=== PATIENT | female | born 1950 | race Caucasian/White ===

== ENCOUNTER 2023-06-30 09:31 | Outpatient (OUT) | payer MEDICARE, SELFPAY ==
[2023-06-30 09:49] LABS: Basophils Absolute Auto 0.1 10^3/uL (0.0-0.1); Basophils Percent Auto 1.1 % (0.2-2.0); Eosinophils Absolute Auto 0.3 10^3/uL (0.0-0.7); Eosinophils Percent Auto 4.1 % (0.9-7.0); Hematocrit 30.3 % (36.0-48.0); Hemoglobin 8.9 g/dL (12.0-16.0); Immature Granulocytes Abs Auto 0.02 10^3/uL (0.00-0.03); Immature Granulocytes Pct Auto 0.3 % (0.0-0.5); Lymphocytes Absolute Auto 0.9 10^3/uL (1.2-3.8); Lymphocytes Percent Auto 14.5 % (20.5-60.0); Mean Corpuscular HGB Conc 29.4 g/dL (29.9-35.2); Mean Corpuscular Hemoglobin 24.7 pg (26.7-34.0); Mean Corpuscular Volume 84.2 fL (81.0-99.0); Mean Platelet Volume 9.1 fL (9.5-13.5); Monocytes Absolute Auto 0.5 10^3/uL (0.3-0.8); Monocytes Percent Auto 7.8 % (1.7-12.0); Neutrophils Absolute Auto 4.5 10^3/uL (1.4-6.5); Neutrophils Percent Auto 72.2 % (43.0-75.0); Platelet Count 356 10^3/uL (150-450); Red Cell Distribution Width 16.8 % (11.0-15.0); White Blood Count 6.3 10^3/uL (4.0-11.0)
[2023-06-30 10:09] LABS: Alanine Aminotransferase 21 U/L (14-59); Albumin Globulin Ratio 0.8; Albumin Level 3.2 g/dL (3.4-5.0); Alkaline Phosphatase 154 U/L (46-116); Anion Gap 12.1; Aspartate Amino Transferase 22 U/L (15-37); BUN Creatinine Ratio 14.6; Bilirubin Total 0.5 mg/dL (0.2-1.0); Calcium 8.3 mg/dL (8.5-10.1); Carbon Dioxide 29.1 mmol/L (21.0-32.0); Chloride 101 mmol/L (98-107); Chol HDL Ratio 3.8; Cholesterol 129 mg/dL (<=200); Estimated GFR (African America 43 (>=60); Estimated GFR (Non-African Ame 36 (>=60); Glucose 112 mg/dL (74-106); HDL Cholesterol 34 mg/dL (40-60); Magnesium 1.9 mg/dL (1.8-2.4); Potassium 4.2 mmol/L (3.5-5.1); Sodium 138 mmol/L (136-145); Total Protein 7.2 g/dL (6.4-8.2); Triglycerides 93 mg/dL (<=150); VLDL CHOLESTEROL 18.6 mg/dL
== END 2023-06-30 09:32 | disposition home or self-care (01) ==
LOC: LAB 09:35
PROVIDERS: PCP Family Medicine; Visit Provider Family Medicine
DX: E78.5 Hyperlipidemia, unspecified (principal); I25.10 Atherosclerotic heart disease of native coronary artery without angina pectoris; N18.30 Chronic kidney disease, stage 3 unspecified; I12.9 Hypertensive chronic kidney disease with stage 1 through stage 4 chronic kidney disease, or unspecified chronic kidney disease; D64.9 Anemia, unspecified; E83.42 Hypomagnesemia
CPT/HCPCS: 36415; 80053; 80061; 83540; 83735; 85025

== ENCOUNTER 2023-08-15 12:33 | Inpatient (IN) | payer MEDICARE, SELFPAY ==
[2023-08-15] VITALS (46 sets, daily range): BP systolic 109–149; BP diastolic 36–81; PULSE 61–94; RESP 12–22; TEMP 36.5–37; O2SAT 78–98; BMI 39.1; BMI 38.5
--- NOTE | 2023-08-15 12:47 | ECG_ITS ---
The [facility] Test Date: 2023-08-15 Pat Name: BELLE JEONG Department: Room: - Gender: Female Count Team Member: : 1950 Requested By: Order Number: [id number] Reading MD: KEERTHI WALTER Measurements Intervals [place] Rate: 67 P: 103 SC: 192 QRS: 43 QRSD: 92 T: 54 QT: 400 QTc: 415 Interpretive Statements 1100 Sinus rhythm Baseline artifact present 9110 normal ECG No previous ECG available for comparison Electronically Signed On 08-16-2023 18:57:37 EDT by KEERTHI WALTER
--- NOTE | 2023-08-15 12:47 | XR_ITS ---
The [address] [address] Patient Name: BELLE JEONG MRN: [id number] date: 1950 Sex: F Assigned Patient Location: ER Current Patient Location: ER Accession/Order Number: [id number] Exam Date: 08/15/2023 13:15 Report Date: 08/15/2023 14:33 At the request of: EDVIN LAM Procedure: XR chest 1V CLINICAL HISTORY: SOB. Increasing shortness of breath for the past 2 days. EXAMINATION: AP chest 08/15/2023 at 1317 hours. COMPARISON: AP chest from left rib series 12/27/2022. FINDINGS: The visualized osseous structures appear intact. The heart size seems upper limits of the normal. The aorta is tortuous and atherosclerotic. Slightly low lung volumes are seen since the previous examination with mildly prominent interstitial markings. Part of this could be due to low lung volumes and crowding of the vessels. However mild interstitial edema is a consideration. No discrete focal consolidating infiltrates, pleural effusions, or pneumothorax. XR/XR chest 1V IMPRESSION: 1. Borderline enlarged heart. 2. Mildly prominent interstitial markings, which could be due to crowding of the vessels due to low lung volumes however underlying mild interstitial edema is a consideration. Electronically authenticated by: LIONEL ARNETT Date: 08/15/2023 14:33
--- NOTE | 2023-08-15 12:48 | ED.SOB1 ---
HPI - SOB/Dyspnea General Chief Complaint: Shortness of Breath/Dyspnea Stated Complaint: SHORTNESS OF BREATH Time Seen by Provider: 08/15/23 12:43 Source: patient Mode of arrival: Wheelchair History of Present Illness HPI Narrative: 73-year-old female presents for shortness of breath. She's been this way for the last week. She had a slight cough yesterday morning but it went away. She's had no productive cough and doesn't complain of chest pain. She used somebody else's inhaler and it seemed to help her several days ago. No fever or hemoptysis. She feels much better now that she is placed on oxygen. She doesn't complain to me of ankle swelling or chest pain. Related Data Home Medications Medication Instructions Recorded Confirmed amlodipine 10 mg tablet 10 mg PO DAILY 08/15/23 08/15/23 buprenorphine 8 mg-naloxone 2 mg 1.5 film sublingual Q24H 08/15/23 08/15/23 sublingual film clopidogrel 75 mg tablet 75 mg PO DAILY 08/15/23 08/15/23 metoprolol tartrate 25 mg tablet 25 mg PO Q12H 08/15/23 08/15/23 naloxone 4 mg/actuation nasal 1 spray intranasal Q3M PRN opioid 08/15/23 08/15/23 spray (Narcan) overdose valsartan 80 mg tablet 80 mg PO DAILY 08/15/23 08/15/23 Allergies Allergy/AdvReac Type Severity Reaction Status Date / Time No Known Drug Allergies Allergy Verified 08/15/23 12:42 Review of Systems ROS Narrative A ten point review of systems is negative except as noted above. Exam Narrative Exam Narrative: Nurses note and vital signs reviewed and patient is not hypoxic. General: The patient appears well and in no apparent distress. Patient is resting comfortably on cart. Skin: Warm, dry, no pallor noted. There is no rash noted. Head: Normocephalic, atraumatic Eye: Normal conjunctiva, no drainage Ears, Nose, Mouth, and Throat: oral mucosa is moist. Nares patent. Cardiovascular: Regular Rate and Rhythm Respiratory: Patient has bilateral rhonchi Back: non-tender GI: Normal bowel sounds, no tenderness to palpation, no masses appreciated. No rebound, guarding, or rigidity noted. Musculoskeletal: The patient has no evidence of calf tenderness, no pitting edema, symmetrical pulses noted bilaterally Neurological: A&O, normal speech Psychiatric: Cooperative Constitutional Vital Signs, click to edit/add: Last Vital Signs Temp 98.6 F 08/15/23 12:38 Pulse 61 08/15/23 12:59 Resp 18 08/15/23 12:38 BP 143/56 H 08/15/23 12:38 Pulse Ox 94 L 08/15/23 13:10 O2 Del Method Nasal Cannula 08/15/23 13:10 O2 Flow Rate 2 08/15/23 13:10 Course Vital Signs Vital signs: Vital Signs Temperature 98.6 F 08/15/23 12:38 Pulse Rate 69 08/15/23 12:38 Respiratory Rate 18 08/15/23 12:38 Blood Pressure 143/56 H 08/15/23 12:38 Pulse Oximetry 81 L 08/15/23 12:38 Oxygen Delivery Method Room Air 08/15/23 12:38 Temperature 98.6 F 08/15/23 12:38 Pulse Rate 61 08/15/23 12:59 Respiratory Rate 18 08/15/23 12:38 Blood Pressure 143/56 H 08/15/23 12:38 Pulse Oximetry 94 L 08/15/23 13:10 Oxygen Delivery Method Nasal Cannula 08/15/23 13:10 Oxygen Delivery Flow Rate 2 08/15/23 13:10 MDM - SOB/Dyspnea MDM Narrative Medical decision making narrative: She is found to be anemic with hemoglobin of 6.6. Stool. Heme-negative. She had been on iron pills until about a year ago but has never had a blood transfusion. There is also possible borderline interstitial edema on her chest x-ray. Blood is ordered and she's being admitted. Findings are discussed with the patient. There is also been a slight increase in her BUN and creatinine. Treatment diagnosis and disposition were discussed with the patient. Differential Diagnosis Differential diagnosis: Likely congestive heart failure and other (pneumonia, anemia, acute kidney injury) Lab Data Attestation: I reviewed the patient's lab results. Labs: Lab Results 08/15/23 08/15/23 Range/Units 13:15 14:00 WBC 2.9 L (4.0-11.0) 10^3/uL RBC 2.78 L (4.20-5.40) 10^6/uL Hgb 6.6 L* (12.0-16.0) g/dL Hct 24.4 L (36.0-48.0) % MCV 87.8 (81.0-99.0) fL MCH 23.7 L (26.7-34.0) pg MCHC 27.0 L (29.9-35.2) g/dL RDW 17.1 H (11.0-15.0) % Plt Count 253 (150-450) 10^3/uL MPV 9.1 L (9.5-13.5) fL Neut % (Auto) 60.2 (43.0-75.0) % Lymph % (Auto) 14.7 L (20.5-60.0) % [place] % (Auto) 19.9 H (1.7-12.0) % Eos % (Auto) 3.1 (0.9-7.0) % Baso % (Auto) 1.4 (0.2-2.0) % Neut # (Auto) 1.8 (1.4-6.5) 10^3/uL Lymph # (Auto) 0.4 L (1.2-3.8) 10^3/uL [place] # (Auto) 0.6 (0.3-0.8) 10^3/uL Eos # (Auto) 0.1 (0.0-0.7) 10^3/uL Baso # (Auto) 0.0 (0.0-0.1) 10^3/uL Abs Immat Gran (auto) 0.02 (0.00-0.03) 10^3/uL Imm/Tot Granulo (auto) 0.7 H (0.0-0.5) % Sodium 140 (136-145) mmol/L Potassium 5.5 H (3.5-5.1) mmol/L Chloride 106 (98-107) mmol/L Carbon Dioxide 28.5 (21.0-32.0) mmol/L Anion Gap 11.0 BUN 45.0 H (7.0-18.0) mg/dL Creatinine 2.00 H (0.55-1.02) mg/dL Est GFR ( Amer) 30 L (>=60) Est GFR (Non-Af Amer) 24 L (>=60) BUN/Creatinine Ratio 22.5 Glucose 104 (74-106) mg/dL Calcium 8.0 L (8.5-10.1) mg/dL Troponin I High Sens 12.0 (4.0-51.3) pg/mL NT-Pro-B Natriuret Pep 5369.0 H* (<=900.0) pg/mL Stool Occult Blood Negative Imaging Data Chest x-ray: Radiologist's impression: Procedure: XR chest 1V CLINICAL HISTORY: SOB. Increasing shortness of breath for the past 2 days. EXAMINATION: AP chest 08/15/2023 at 1317 hours. COMPARISON: AP chest from left rib series 12/27/2022. FINDINGS: The visualized osseous structures appear intact. The heart size seems upper limits of the normal. The aorta is tortuous and atherosclerotic. Slightly low lung volumes are seen since the previous examination with mildly prominent interstitial markings. Part of this could be due to low lung volumes and crowding of the vessels. However mild interstitial edema is a consideration. No discrete focal consolidating infiltrates, pleural effusions, or pneumothorax. IMPRESSION: 1. Borderline enlarged heart. 2. Mildly prominent interstitial markings, which could be due to crowding of the vessels due to low lung volumes however underlying mild interstitial edema is a consideration. Electronically authenticated by: LIONEL ARNETT Date: 08/15/2023 14:33 ECG Data Attestation: I personally reviewed and interpreted this ECG as follows: (EKG on my interpretation shows sinus rhythm without acute change and a rate of 67.) Discharge Plan Discharge Chief Complaint: Shortness of Breath/Dyspnea Clinical Impression: Anemia Patient Disposition: Admitted As Inpatient Time of Disposition Decision: 15:14 Condition: Good
[2023-08-15] MEDS: ALBUTEROL SULFATE 2.5 MG/3 ML VIAL NEB IH (12:59)
[2023-08-15 13:29] LABS: Basophils Percent Auto 1.4 % (0.2-2.0); Eosinophils Absolute Auto 0.1 10^3/uL (0.0-0.7); Eosinophils Percent Auto 3.1 % (0.9-7.0); Hematocrit 24.4 % (36.0-48.0); Immature Granulocytes Abs Auto 0.02 10^3/uL (0.00-0.03); Immature Granulocytes Pct Auto 0.7 % (0.0-0.5); Lymphocytes Absolute Auto 0.4 10^3/uL (1.2-3.8); Lymphocytes Percent Auto 14.7 % (20.5-60.0); Mean Corpuscular Hemoglobin 23.7 pg (26.7-34.0); Mean Corpuscular Volume 87.8 fL (81.0-99.0); Mean Platelet Volume 9.1 fL (9.5-13.5); Monocytes Absolute Auto 0.6 10^3/uL (0.3-0.8); Monocytes Percent Auto 19.9 % (1.7-12.0); Neutrophils Absolute Auto 1.8 10^3/uL (1.4-6.5); Neutrophils Percent Auto 60.2 % (43.0-75.0); Platelet Count 253 10^3/uL (150-450); Red Blood Count 2.78 10^6/uL (4.20-5.40); Red Cell Distribution Width 17.1 % (11.0-15.0); White Blood Count 2.9 10^3/uL (4.0-11.0)
[2023-08-15 13:47] LABS: BUN Creatinine Ratio 22.5; Carbon Dioxide 28.5 mmol/L (21.0-32.0); Chloride 106 mmol/L (98-107); Estimated GFR (African America 30 (>=60); Estimated GFR (Non-African Ame 24 (>=60); Glucose 104 mg/dL (74-106); Potassium 5.5 mmol/L (3.5-5.1); Sodium 140 mmol/L (136-145)
[2023-08-15 13:49] LABS: Hemoglobin 6.6 g/dL (12.0-16.0)
[2023-08-15 14:30] LABS: Occult Blood Negative
--- NOTE | 2023-08-15 15:35 | CA_ITS ---
Patient: BELLE JEONG Exam Date: 08/17/2023 : 1950 Gender:F Ordering : RUBI BERNARD . Admission #: [id number] Family : Order #: [id number] CLICK HERE TO VIEW EXAM ECHOCARDIOGRAM REPORT PROCEDURE: CA ECHO DOPPLER COMPLETE INDICATIONS: shortness of breath, elevated ProBNP COMPARISON: None. DESCRIPTION: COMPLETE ECHOCARDIOGRAM Real-time transthoracic echocardiography with 2D, M-mode, spectral and color flow Doppler performed. QUALITY: Technical quality was good. LEFT VENTRICLE: Normal chamber size. Mild concentric left ventricular hypertrophy. LV EF: Global left ventricular systolic function is normal. Calculated left ventricular ejection fraction is 65%. No significant wall motion abnormalities. DIASTOLIC: Grade II diastolic dysfunction. ATRIAL SEPTUM: Inadequately seen. LEFT ATRIUM: Severe dilatation. RIGHT ATRIUM: Mild dilatation. RIGHT VENTRICLE: Normal chamber size. Normal right ventricular systolic function. TRICUSPID VALVE: Normal mobility and thickness. Mild regurgitation. Moderate pulmonary hypertension. RVSP 54mmHg MITRAL VALVE: Normal mobility and thickness. No evidence of mitral valve stenosis. Mild mitral annular calcification. Mild mitral regurgitation. AORTIC VALVE: Normal trileaflet appearance. Moderately calcified aortic valve. Moderately diminished mobility. Doppler velocity suggests mild to moderate aortic valve stenosis. DVI 0.4, FAIZAN 1.3cm, Vmax 8.1m/s2, Mean gradient 15mmHg.No aortic regurgitation. AORTIC ROOT: Normal diameter and appearance. PULMONIC VALVE: Normal thickness and mobility. No stenosis. No regurgitation. PERICARDIUM: No evidence of pericardial effusion. IVC: Normal in size with no collapse. CONCLUSION: 1. Global left ventricular systolic function is normal; visually estimated ejection fraction is 60 to 65% 2. Mild left ventricular hypertrophy 3. Grade 2, moderate diastolic dysfunction 4. Biatrial enlargement 5. The right ventricle is normal in size and systolic function 6. Mild tricuspid regurgitation; moderately elevated right ventricular systolic pressure 7. Mild mitral regurgitation 8. Mild to moderate aortic valve stenosis Adult Echocardiography Procedure Report Left Ventricle LVEDD (3.7 - 5.6 cm): 5.21 cm LVESD (2.2 - 4.0 cm): 3.28 cm LVIVS thickness (0.6 - 1.2 cm): 1.19 cm LVPW thickness (0.5 - 1.0 cm): 1.03 cm e': 0.08 m/s E - e': 16.65 LVOT Max Gradient: 4.54 mm[Hg], 5.10 mm[Hg] LVOT Area (cm2): 1.13 m/s, 1.07 m/s Peak Velocity (LVOT): 1.13 m/s, 1.07 m/s Mean Velocity (LVOT): 0.69 m/s LVOT Diameter 2.12 cm Left Ventricular Ejection Fraction: 65.38 % Left Atrium LA Volume Index (2D A2C): 68.64 ml/m2 Left Atrium Systolic Dimension: 4.87 cm Mitral Valve MV E to A Ratio: 1.13, 1.20 Mitral Valve A-Wave Peak Velocity: 1.17 m/s Mitral Valve E-Wave Peak Velocity: 1.37 m/s Right Ventricle RV Internal Diastolic Dimension: 3.25 cm Aorta AO Root Diam: 3.27 cm Ascending Ao Diam: 2.72 cm Aortic Valve AoV Area (Peak Harsh): 1.42 cm2, 1.42 cm2, 1.34 cm2, 1.34 cm2 AoV Area (VTI): 1.48 cm2, 1.48 cm2 Peak Velocity(Antegrade Flow): 2.81 m/s Peak Gradient(Antegrade Flow): 31.63 mm[Hg] Mean Velocity(Antegrade Flow): 1.81 m/s Mean Gradient(Antegrade Flow): 15.21 mm[Hg] Velocity Time Integral: 65.45 cm Tricuspid Valve Peak Velocity (Regurgitant Flow): 3.10 m/s, 3.15 m/s, 3.47 m/s Pulmonic Valve Mean Gradient: 4.80 mm[Hg] Mean Velocity: 1.03 m/s Peak Velocity: 1.49 m/s Peak Gradient: 8.88 mm[Hg] Right Atrium Right Atrium Systolic Pressure: 62.45 ml, 62.45 ml Dictated by: Jaylon Del Real M.D. on 08/17/2023 at 15:57 Approved by: Jaylon Del Real M.D. on 08/17/2023 at 16:01
[2023-08-15 16:21] LABS: INR 0.97; Prothrombin Time 10.3 sec (9.0-11.6)
[2023-08-15 16:26] LABS: Percent Iron Saturation 4.2 %
[2023-08-15] MEDS: FUROSEMIDE 40 MG/4 ML VIAL IVP (18:30)
--- NOTE | 2023-08-15 20:43 | RESP.RT ---
Titrated to 3 lpm
[2023-08-15] MEDS: PANTOPRAZOLE SODIUM 40 MG VIAL IV (21:13)
[2023-08-15] MEDS: METOPROLOL TARTRATE 25 MG TABLET PO (21:13)
[2023-08-15 23:32] LABS: Hemoglobin 9.4 g/dL (12.0-16.0)
[2023-08-15] MEDS: IPRATROPIUM/ALBUTEROL SULFATE 3 ML AMPUL.NEB IH (23:56)
[2023-08-16] VITALS (17 sets, daily range): BP systolic 111–153; BP diastolic 55–78; PULSE 68–778; RESP 18–22; TEMP 36.4–37.5; O2SAT 91–95
--- NOTE | 2023-08-16 00:04 | RESP.RT ---
Titrated to 3 lpm
--- NOTE | 2023-08-16 00:22 | PC.NURSE ---
pt had H&H pulled one hour post transfusion with a Hgb of 9.4 Hcrt of 33.0
[2023-08-16 06:32] LABS: Hematocrit 31.5 % (36.0-48.0); Hemoglobin 8.7 g/dL (12.0-16.0); Immature Granulocytes Abs Auto 0.02 10^3/uL (0.00-0.03); Immature Granulocytes Pct Auto 0.5 % (0.0-0.5); Lymphocytes Absolute Auto 0.5 10^3/uL (1.2-3.8); Lymphocytes Percent Auto 13.1 % (20.5-60.0); Mean Corpuscular HGB Conc 27.6 g/dL (29.9-35.2); Mean Corpuscular Hemoglobin 24.9 pg (26.7-34.0); Mean Corpuscular Volume 90.3 fL (81.0-99.0); Mean Platelet Volume 9.2 fL (9.5-13.5); Monocytes Absolute Auto 0.8 10^3/uL (0.3-0.8); Monocytes Percent Auto 20.1 % (1.7-12.0); Neutrophils Absolute Auto 2.5 10^3/uL (1.4-6.5); Neutrophils Percent Auto 64.3 % (43.0-75.0); Platelet Count 262 10^3/uL (150-450); Red Blood Count 3.49 10^6/uL (4.20-5.40); Red Cell Distribution Width 17.6 % (11.0-15.0); White Blood Count 3.9 10^3/uL (4.0-11.0)
[2023-08-16 07:00] LABS: Potassium 6.3 mmol/L (3.5-5.1); Sodium 140 mmol/L (136-145)
[2023-08-16 07:01] LABS: Alanine Aminotransferase 19 U/L (14-59); Albumin Globulin Ratio 0.8; Albumin Level 3.2 g/dL (3.4-5.0); Alkaline Phosphatase 142 U/L (46-116); Anion Gap 13.9; Aspartate Amino Transferase 16 U/L (15-37); BUN Creatinine Ratio 22.7; Bilirubin Total 0.8 mg/dL (0.2-1.0); Carbon Dioxide 27.4 mmol/L (21.0-32.0); Chloride 105 mmol/L (98-107); Estimated GFR (African America 31 (>=60); Estimated GFR (Non-African Ame 25 (>=60); Globulin 3.8 g/dL; Glucose 114 mg/dL (74-106)
--- NOTE | 2023-08-16 08:30 | PM.HP ---
H&P: HPI History of Present Illness Chief complaint: SHORTNESS OF BREATH, Anemia Narrative: patient is a 73-year-old female with past medical history of iron deficiency anemia, coronary artery disease, congestive heart failure, history of illicit drug use currently on Suboxone therapy.she reports that about a year ago she was on iron supplement daily. She has required a transfusion of blood before approximately twenty nineteen. No issues with prior transfusions. She denies any blood loss through her stool or any vomiting of blood. She states she also had an upper endoscopy more than ten years ago. She takes Plavix daily, no anti-inflammatories. She has never had a colonoscopy before even though the recommendation has been there for her to do it. Patient presented with shortness of breath, hypoxia, weakness over the last week. Patient was found to be less than eighty-eight percent on room air and her hemoglobin was initially 6.6. Also had an elevated proBNP 5369. 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 She follows with Dr. Martinez in [facility] regularly,last cardiac catheterization was approximately two years ago with no further interventions. She continues to take her cholesterol medication and along with Plavix daily. She also has a history of taking opioids that are not prescribed to her. Her was going through cancer treatment and was prescribed morphine at the end of life and she was taking his morphine. She started on Suboxone approximately two months ago and reports that this is been going well for her. On admission exam she notes that she feels much improved since the blood transfusion she also notes some lower extremity swelling and states that she does have a history of heart failure. He has been compliant with her medications. Review of Systems ROS Narrative ROS: a complete review of systems were reviewed with patient and are positive as below or listed in History of Chief Complaint. General: no fever, chills, night sweats Head: no headache, trauma, visual changes, nausea or vomiting Skin: no reported rashes, itching or sores Eyes: no blurriness of vision Ears: no reported hearing loss, vertigo, earache, or tinnitus Throat: no sore throat, hoarseness, swelling of neck, or tongue pain Heart: no chest pain Lungs: shortness of breath no cough GI: no diarrhea or vomiting/nausea, no blood Urinary: no urinary urgency, frequency or pain Neuro: no numbness or tingling HEM: no bleeding issues or bruising ENDO: no thyroid problems Psych: hx of drug addiction [facility] Medical History (Updated 08/16/23 @ 11:54 by Dana Koenig DO) Surgical History Social History Within the past year, how often did you have a drink containing alcohol: never Within the past year, how many standard drinks containing alcohol did you have on a typical day: 1 or 2 Within the past year, how often did you have six or more drinks on one occasion: never Total score: 0 Score interpretation: A score less than 3 is consistent with normal alcohol consumption. Smoking status: Former smoker Non-prescribed substance use: former substance user, amphetamines/methamphetamines and opiods/painkillers Non-prescribed substance use details: states has been clean for 6 months Previous occupational history: Retired Known occupational exposures/hazards: No Highest level of school completed/degree received: high school graduate Are you now , , , , never or living with a partner: In a typical week, how many times do you talk on the telephone with family, friends, or neighbors: 3 or more times per week How often do you get together with friends or relatives: 3 or more times per week How often do you attend orthodoxy or evangelical services: never Do you belong to any clubs or organizations such as orthodoxy groups unions, fraternal or athletic groups, or school groups: no Total score: 1 Score interpretation: A score of less than or equal to 1 indicates the most socially isolated. Little interest or pleasure in doing things: not at all Feeling down, depressed, or hopeless: not at all Feel stressed/tense/nervous/anxious/difficulty sleeping: not at all Gender Identity: female Meds Home Medications and Allergies Home Medications Medication Instructions Recorded Confirmed Type amlodipine 10 mg tablet 10 mg PO DAILY 08/15/23 08/15/23 History buprenorphine 8 mg-naloxone 2 mg 1.5 film sublingual Q24H 08/15/23 08/15/23 History sublingual film clopidogrel 75 mg tablet 75 mg PO DAILY 08/15/23 08/15/23 History metoprolol tartrate 25 mg tablet 25 mg PO Q12H 08/15/23 08/15/23 History naloxone 4 mg/actuation nasal 1 spray intranasal Q3M PRN opioid 08/15/23 08/15/23 History spray (Narcan) overdose valsartan 80 mg tablet 80 mg PO DAILY 08/15/23 08/15/23 History Allergies Allergy/AdvReac Type Severity Reaction Status Date / Time No Known Drug Allergies Allergy Verified 08/15/23 12:42 Exam Narrative Exam Narrative: General: Patient is alert, and oriented to person, place and time with normal affect, proper hygiene Skin: no visible rashes, or ulcers Head: atraumatic, acephalic Eyes: PERRLA, no nystagmus present, conjunctiva clear, no scleral icterus Ears: normal gross auditory acuity Nose: symmetric, no discharge, no maxillary or frontal sinus tenderness Neck: no masses palpated, normal thyroid, no JVD or audible carotid bruits Heart: Normal rate and rhythm, no murmurs/rubs/gallops Lungs: audible crackles Abdomen: Normal audible bowel sounds, no distension, No palpable masses, no organomegaly, no rebound/guarding/ or rigidity Musculoskeletal: muscle atrophy noted, ROM is limited due to being in hospital bed, +1 swelling bilateral lower extremities Vascular: Normal carotid, radial, femoral, posterior tibial, and dorsalis pedis pulses Lymph: no supraclavicular, axillary, or anterior/posterior cervical adenopathy Neuro: CN II-X grossly intact, normal sensation upper and lower extremities Constitutional Vital Signs, click to edit/add: Last Vital Signs Temp 99.5 F 08/16/23 06:00 Pulse 82 08/16/23 08:21 Resp 18 08/16/23 06:00 BP 143/78 H 08/16/23 06:00 Pulse Ox 95 08/16/23 06:00 O2 Del Method Nasal Cannula 08/16/23 06:00 O2 Flow Rate 4 08/16/23 06:00 Results Labs Labs: Short CBC 08/15/23 08/15/23 08/16/23 Range/Units 13:15 23:16 06:27 WBC 2.9 L 3.9 L (4.0-11.0) 10^3/uL Hgb 6.6 L* 9.4 L 8.7 L (12.0-16.0) g/dL Hct 24.4 L 33.0 L 31.5 L (36.0-48.0) % Plt Count 253 262 (150-450) 10^3/uL BMP 08/15/23 08/16/23 13:15 06:27 Sodium 140 140 Potassium 5.5 H 6.3 H* Chloride 106 105 Carbon Dioxide 28.5 27.4 BUN 45.0 H 44.0 H Creatinine 2.00 H 1.94 H Glucose 104 114 H Calcium 8.0 L 8.0 L Liver Function 08/16/23 Range/Units 06:27 Total Bilirubin 0.8 (0.2-1.0) mg/dL AST 16 (15-37) U/L ALT 19 (14-59) U/L Alkaline Phosphatase 142 H (46-116) U/L Albumin 3.2 L (3.4-5.0) g/dL Assessment and Plan Assessment and Plan (1) Symptomatic anemia: Assessment and Plan: initial hemoglobin was 6.6, patient was transfused with two units of packed red blood cells and hemoglobin improved to 9.4, this morning was 8.7. Iron level was low ferritin was high signifying iron deficiency anemia. Will also give iron transfusion of 300 mg IV once today. Patient has never had a colonoscopy, stool Hemoccult was negative and with her smoking history and age she should have R Dino had a screening colonoscopy so there is always a concern. I consulted general surgery for possible EGD and/or colonoscopy as an outpatient versus inpatient. I also place patient on IV Protonix 40 mg twice a day given patient has been on Plavix may also have an underlying gastritis versus ulcer. She has also been on clear liquid diet. 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 Will hold the Plavix given bleeding issues as above and symptomatic anemia, could also be because her hemoglobin was so well that this is also forcing her into an acute failure. She was treated with Lasix 40 mg IV once in between the two units of blood. Still appears in fluid overload today based on lung findings and bilateral extremity edema so we'll give another IV 40 mg dose of Lasix. We'll monitor closely renal function. Ins and outs, and daily weights Qualifiers: Heart failure type: unspecified Qualified Code(s): I50.9 - Heart failure, unspecified (3) Hyperkalemia: Assessment and Plan: will give a dose of Lasix today which should correct this elevated potassium of 6.6 we'll recheck this afternoon. Could also be due to losartan so we'll also hold this. (4) Acute renal failure: Assessment and Plan: sounds like she has a history of chronic kidney disease unsure of what her baseline creatinine is. Monitor daily (5) Hypertension: Assessment and Plan: continue amlodipine, metoprolol and will hold the valsartan given elevated potassium (6) CAD (coronary atherosclerotic disease): Assessment and Plan: will check lipids in the morning, holding Plavix for now (7) History of illicit drug use: Assessment and Plan: may continue Suboxone Plan patient is a full code Patient is inpatient status and is expected to stay more than two midnights SCDs and compression hose for deep vein thrombosis prophylaxis given patient's acute bleed
[2023-08-16] MEDS: PANTOPRAZOLE SODIUM 40 MG VIAL IV ×2 (08:36→22:48)
[2023-08-16] MEDS: LOSARTAN POTASSIUM 50 MG TABLET PO (08:36)
[2023-08-16] MEDS: AMLODIPINE BESYLATE 5 MG TABLET 10 MG PO (08:36)
[2023-08-16] MEDS: METOPROLOL TARTRATE 25 MG TABLET PO ×2 (08:36→22:48)
[2023-08-16] MEDS: IRON SUCROSE COMPLEX 300 MG in 0.9 % SODIUM CHLORIDE 250 ML 176.667 MG IV (11:01)
--- NOTE | 2023-08-16 12:27 | P.GSCN_ITS ---
History of Present Illness Consult details Consult date: 08/16/23 Narrative: Patient is a 73-year-old female who presented to the emergency room yesterday with fatigue and shortness of breath. She was found to be markedly anemic with a hemoglobin of 6.6. She denies any history of melena hematochezia or hematemesis. She apparently has a history of iron deficiency anemia. Patient has never undergone EGD or colonoscopy. Patient's paternal grandfather had colon CA. After transfusion the patient feels much better although still somewhat dyspneic. Review of Systems ROS Status of ROS 10 or more systems reviewed and unremarkable except as noted in history and below [facility] Medical History (Updated 08/16/23 @ 11:54 by Dana Koenig DO) Surgical History Social History Within the past year, how often did you have a drink containing alcohol: never Within the past year, how many standard drinks containing alcohol did you have on a typical day: 1 or 2 Within the past year, how often did you have six or more drinks on one occasion: never Total score: 0 Score interpretation: A score less than 3 is consistent with normal alcohol consumption. Smoking status: Former smoker Non-prescribed substance use: former substance user, amphetamines/methamphetamines and opiods/painkillers Non-prescribed substance use details: states has been clean for 6 months Previous occupational history: Retired Known occupational exposures/hazards: No Highest level of school completed/degree received: high school graduate Are you now , , , , never or living with a partner: In a typical week, how many times do you talk on the telephone with family, friends, or neighbors: 3 or more times per week How often do you get together with friends or relatives: 3 or more times per week How often do you attend yazidi or episcopalian services: never Do you belong to any clubs or organizations such as yazidi groups unions, f raternal or athletic groups, or school groups: no Total score: 1 Score interpretation: A score of less than or equal to 1 indicates the most socially isolated. Little interest or pleasure in doing things: not at all Feeling down, depressed, or hopeless: not at all Feel stressed/tense/nervous/anxious/difficulty sleeping: not at all Gender Identity: female Meds Home Medications and Allergies Home Medications Medication Instructions Recorded Confirmed Type amlodipine 10 mg tablet 10 mg PO DAILY 08/15/23 08/15/23 History buprenorphine 8 mg-naloxone 2 mg 1.5 film sublingual Q24H 08/15/23 08/15/23 History sublingual film clopidogrel 75 mg tablet 75 mg PO DAILY 08/15/23 08/15/23 History metoprolol tartrate 25 mg tablet 25 mg PO Q12H 08/15/23 08/15/23 History naloxone 4 mg/actuation nasal 1 spray intranasal Q3M PRN opioid 08/15/23 08/15/23 History spray (Narcan) overdose valsartan 80 mg tablet 80 mg PO DAILY 08/15/23 08/15/23 History Allergies Allergy/AdvReac Type Severity Reaction Status Date / Time No Known Drug Allergies Allergy Verified 08/15/23 12:42 Exam Constitutional Vital Signs, click to edit/add: Last Vital Signs Temp 99.5 F 08/16/23 06:00 Pulse 68 08/16/23 10:01 Resp 18 08/16/23 06:00 BP 143/78 H 08/16/23 06:00 Pulse Ox 95 08/16/23 06:00 O2 Del Method Nasal Cannula 08/16/23 06:00 O2 Flow Rate 4 08/16/23 06:00 Common normals: no apparent distress General appearance: cooperative HENVA Common normals: normocephalic GI Common normals: soft to palpation and non-tender Extremity Common normals: normal to inspection Neuro Common normals: oriented x3 Psych Common normals: mental status grossly normal Results Labs Labs: Abnormal lab results 08/15/23 08/15/23 08/15/23 Range/Units 13:15 15:26 23:16 WBC 2.9 L (4.0-11.0) 10^3/uL RBC 2.78 L (4.20-5.40) 10^6/uL Hgb 6.6 L* 9.4 L (12.0-16.0) g/dL Hct 24.4 L 33.0 L (36.0-48.0) % MCH 23.7 L (26.7-34.0) pg MCHC 27.0 L (29.9-35.2) g/dL RDW 17.1 H (11.0-15.0) % MPV 9.1 L (9.5-13.5) fL Lymph % (Auto) 14.7 L (20.5-60.0) % [place] % (Auto) 19.9 H (1.7-12.0) % Lymph # (Auto) 0.4 L (1.2-3.8) 10^3/uL Imm/Tot Granulo (auto) 0.7 H (0.0-0.5) % Potassium 5.5 H (3.5-5.1) mmol/L BUN 45.0 H (7.0-18.0) mg/dL Creatinine 2.00 H (0.55-1.02) mg/dL Est GFR ( Amer) 30 L (>=60) Est GFR (Non-Af Amer) 24 L (>=60) Glucose (74-106) mg/dL Calcium 8.0 L (8.5-10.1) mg/dL Iron 9.0 L (50.0-170.0) ug/dL TIBC 213.0 L (250.0-450.0) ug/dL Alkaline Phosphatase (46-116) U/L NT-Pro-B Natriuret Pep 5369.0 H* (<=900.0) pg/mL Albumin (3.4-5.0) g/dL Crossmatch See Detail 08/16/23 Range/Units 06:27 WBC 3.9 L (4.0-11.0) 10^3/uL RBC 3.49 L (4.20-5.40) 10^6/uL Hgb 8.7 L (12.0-16.0) g/dL Hct 31.5 L (36.0-48.0) % MCH 24.9 L (26.7-34.0) pg MCHC 27.6 L (29.9-35.2) g/dL RDW 17.6 H (11.0-15.0) % MPV 9.2 L (9.5-13.5) fL Lymph % (Auto) 13.1 L (20.5-60.0) % [place] % (Auto) 20.1 H (1.7-12.0) % Lymph # (Auto) 0.5 L (1.2-3.8) 10^3/uL Imm/Tot Granulo (auto) (0.0-0.5) % Potassium 6.3 H* (3.5-5.1) mmol/L BUN 44.0 H (7.0-18.0) mg/dL Creatinine 1.94 H (0.55-1.02) mg/dL Est GFR ( Amer) 31 L (>=60) Est GFR (Non-Af Amer) 25 L (>=60) Glucose 114 H (74-106) mg/dL Calcium 8.0 L (8.5-10.1) mg/dL Iron (50.0-170.0) ug/dL TIBC (250.0-450.0) ug/dL Alkaline Phosphatase 142 H (46-116) U/L NT-Pro-B Natriuret Pep (<=900.0) pg/mL Albumin 3.2 L (3.4-5.0) g/dL Crossmatch Diabetes panel 08/15/23 08/16/23 Range/Units 13:15 06:27 Sodium 140 140 (136-145) mmol/L Potassium 5.5 H 6.3 H* (3.5-5.1) mmol/L Chloride 106 105 (98-107) mmol/L Carbon Dioxide 28.5 27.4 (21.0-32.0) mmol/L BUN 45.0 H 44.0 H (7.0-18.0) mg/dL Creatinine 2.00 H 1.94 H (0.55-1.02) mg/dL Glucose 104 114 H (74-106) mg/dL Calcium 8.0 L 8.0 L (8.5-10.1) mg/dL AST 16 (15-37) U/L ALT 19 (14-59) U/L Alkaline Phosphatase 142 H (46-116) U/L Total Protein 7.0 (6.4-8.2) g/dL Albumin 3.2 L (3.4-5.0) g/dL Calcium panel 08/15/23 08/16/23 Range/Units 13:15 06:27 Calcium 8.0 L 8.0 L (8.5-10.1) mg/dL Albumin 3.2 L (3.4-5.0) g/dL Pituitary panel 08/15/23 08/16/23 Range/Units 13:15 06:27 Sodium 140 140 (136-145) mmol/L Potassium 5.5 H 6.3 H* (3.5-5.1) mmol/L Chloride 106 105 (98-107) mmol/L Carbon Dioxide 28.5 27.4 (21.0-32.0) mmol/L BUN 45.0 H 44.0 H (7.0-18.0) mg/dL Creatinine 2.00 H 1.94 H (0.55-1.02) mg/dL Glucose 104 114 H (74-106) mg/dL Calcium 8.0 L 8.0 L (8.5-10.1) mg/dL Adrenal panel 08/15/23 08/16/23 Range/Units 13:15 06:27 Sodium 140 140 (136-145) mmol/L Potassium 5.5 H 6.3 H* (3.5-5.1) mmol/L Chloride 106 105 (98-107) mmol/L Carbon Dioxide 28.5 27.4 (21.0-32.0) mmol/L BUN 45.0 H 44.0 H (7.0-18.0) mg/dL Creatinine 2.00 H 1.94 H (0.55-1.02) mg/dL Glucose 104 114 H (74-106) mg/dL Calcium 8.0 L 8.0 L (8.5-10.1) mg/dL Total Bilirubin 0.8 (0.2-1.0) mg/dL AST 16 (15-37) U/L ALT 19 (14-59) U/L Alkaline Phosphatase 142 H (46-116) U/L Total Protein 7.0 (6.4-8.2) g/dL Albumin 3.2 L (3.4-5.0) g/dL All other labs normal. Assessment and Plan Assessment and Plan (1) Symptomatic anemia: Assessment and Plan: the above findings and recommended proceeding with upper endoscopy as well as colonoscopy. Patient is agreeable to this. We'll initiate a bowel prep today and plan to do the procedures tomorrow 08/17/2023. (2) Acute on chronic congestive heart failure: Qualifiers: Heart failure type: unspecified Qualified Code(s): I50.9 - Heart failure, unspecified (3) Hyperkalemia: (4) Acute renal failure: (5) Hypertension: (6) CAD (coronary atherosclerotic disease): (7) History of illicit drug use:
[2023-08-16] MEDS: FUROSEMIDE 40 MG/4 ML VIAL IVP (13:03)
[2023-08-16] MEDS: POLYETHYLENE GLYCOL 3350 238 GM POWDER 119 GM PO ×2 (16:37→22:49)
[2023-08-16] MEDS: BISACODYL 5 MG TABLET 15 MG PO (16:37)
[2023-08-16] MEDS: NON-FORMULARY 1 EACH (Buprenorphine-Naloxone 8-2 mg film) 1.5 EACH SL (16:38)
[2023-08-16 19:13] LABS: Anion Gap 16.4; BUN Creatinine Ratio 24.7; Calcium 8.1 mg/dL (8.5-10.1); Carbon Dioxide 25.8 mmol/L (21.0-32.0); Chloride 102 mmol/L (98-107); Estimated GFR (African America 34 (>=60); Estimated GFR (Non-African Ame 28 (>=60); Glucose 127 mg/dL (74-106); Potassium 5.2 mmol/L (3.5-5.1); Sodium 139 mmol/L (136-145)
[2023-08-17] VITALS (66 sets, daily range): BP systolic 120–146; BP diastolic 49–72; PULSE 65–84; RESP 8–93; TEMP 36.3–36.7; O2SAT 91–97
[2023-08-17 04:59] LABS: Basophils Percent Auto 0.7 % (0.2-2.0); Eosinophils Absolute Auto 0.1 10^3/uL (0.0-0.7); Eosinophils Percent Auto 2.5 % (0.9-7.0); Hemoglobin 8.3 g/dL (12.0-16.0); Immature Granulocytes Abs Auto 0.02 10^3/uL (0.00-0.03); Immature Granulocytes Pct Auto 0.5 % (0.0-0.5); Lymphocytes Absolute Auto 0.6 10^3/uL (1.2-3.8); Lymphocytes Percent Auto 14.9 % (20.5-60.0); Mean Corpuscular HGB Conc 28.6 g/dL (29.9-35.2); Mean Corpuscular Hemoglobin 25.2 pg (26.7-34.0); Mean Corpuscular Volume 87.9 fL (81.0-99.0); Mean Platelet Volume 9.1 fL (9.5-13.5); Monocytes Absolute Auto 0.6 10^3/uL (0.3-0.8); Monocytes Percent Auto 15.9 % (1.7-12.0); Neutrophils Absolute Auto 2.6 10^3/uL (1.4-6.5); Neutrophils Percent Auto 65.5 % (43.0-75.0); Platelet Count 246 10^3/uL (150-450); Red Cell Distribution Width 17.7 % (11.0-15.0)
[2023-08-17 05:13] LABS: Chol HDL Ratio 2.7; Cholesterol 101 mg/dL (<=200); HDL Cholesterol 38 mg/dL (40-60); Triglycerides 62 mg/dL (<=150); VLDL CHOLESTEROL 12.4 mg/dL
[2023-08-17 05:16] LABS: Alanine Aminotransferase 24 U/L (14-59); Albumin Globulin Ratio 0.8; Alkaline Phosphatase 145 U/L (46-116); Anion Gap 10.3; Aspartate Amino Transferase 19 U/L (15-37); BUN Creatinine Ratio 24.4; Calcium 8.5 mg/dL (8.5-10.1); Carbon Dioxide 30.8 mmol/L (21.0-32.0); Chloride 102 mmol/L (98-107); Estimated GFR (African America 37 (>=60); Estimated GFR (Non-African Ame 31 (>=60); Globulin 3.7 g/dL; Glucose 105 mg/dL (74-106); Potassium 5.1 mmol/L (3.5-5.1); Sodium 138 mmol/L (136-145); Total Protein 6.7 g/dL (6.4-8.2)
--- NOTE | 2023-08-17 08:21 | P.PN_ITS ---
Progress Note: Subjective Subjective Interval history: patient still feels short of breath, no chest pain and some chest congestion. She reports good clean out for colonoscopy and EGD today. Exam Narrative Exam Narrative: General: Patient is alert, and oriented to person, place and time with normal affect, proper hygiene Skin: no visible rashes, or ulcers Head: atraumatic, acephalic Eyes: PERRLA, no nystagmus present, conjunctiva clear, no scleral icterus Ears: normal gross auditory acuity Nose: symmetric, no discharge, no maxillary or frontal sinus tenderness Neck: no masses palpated, normal thyroid, no JVD or audible carotid bruits Heart: Normal rate and rhythm, no murmurs/rubs/gallops Lungs: audible crackles Abdomen: Normal audible bowel sounds, no distension, No palpable masses, no organomegaly, no rebound/guarding/ or rigidity Musculoskeletal: muscle atrophy noted, ROM is limited due to being in hospital bed, +1 swelling bilateral lower extremities Vascular: Normal carotid, radial, femoral, posterior tibial, and dorsalis pedis pulses Lymph: no supraclavicular, axillary, or anterior/posterior cervical adenopathy Neuro: CN II-X grossly intact, normal sensation upper and lower extremities Constitutional Vital Signs, click to edit/add: Last Vital Signs Temp 98.1 F 08/17/23 05:43 Pulse 75 08/17/23 08:07 Resp 20 08/17/23 05:43 BP 123/72 08/17/23 05:43 Pulse Ox 93 L 08/17/23 05:43 O2 Del Method Nasal Cannula 08/17/23 05:43 O2 Flow Rate 4 08/17/23 05:43 Progress Note: Objective Labs Labs: Short CBC 08/17/23 Range/Units 04:27 WBC 4.0 (4.0-11.0) 10^3/uL Hgb 8.3 L (12.0-16.0) g/dL Hct 29.0 L (36.0-48.0) % Plt Count 246 (150-450) 10^3/uL BMP 08/16/23 08/17/23 18:50 04:27 Sodium 139 138 Potassium 5.2 H 5.1 Chloride 102 102 Carbon Dioxide 25.8 30.8 BUN 44.0 H 40.0 H Creatinine 1.78 H 1.64 H Glucose 127 H 105 Calcium 8.1 L 8.5 Liver Function 08/17/23 Range/Units 04:27 Total Bilirubin 1.0 (0.2-1.0) mg/dL AST 19 (15-37) U/L ALT 24 (14-59) U/L Alkaline Phosphatase 145 H (46-116) U/L Albumin 3.0 L (3.4-5.0) g/dL Progress Note: A&P Assessment and Plan (1) Symptomatic anemia: Assessment and Plan: initial hemoglobin was 6.6, patient was transfused with two units of packed red blood cells and hemoglobin improved to 9.4, this morning was 8.3. Iron level was low ferritin was high signifying iron deficiency anemia. iron transfusion of 300 mg IV once. Will recheck iron level. Patient has never had a colonoscopy, stool Hemoccult was negative and with her smoking history and age she should have had a screening colonoscopy so there is always a concern. I consulted general surgery for EGD and/or colonoscopy which is to be performed today. I also place patient on IV Protonix 40 mg twice a day given patient has been on Plavix may also have an underlying gastritis versus ulcer. She has also been on clear liquid diet, NPO after midnight. 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 Will hold the Plavix given bleeding issues as above and symptomatic anemia, could also be because her hemoglobin was so low that this is also forcing her into an acute failure. She was treated with Lasix 40 mg IV once in between the two units of blood. Still appears in fluid overload today based on lung findings and bilateral extremity edema so will continue IV 40 mg dose of Lasix. We'll monitor closely renal function. Ins and outs, and daily weights. ECHO pending, cards consult, chest X- ray this morning Qualifiers: Heart failure type: unspecified Qualified Code(s): I50.9 - Heart failure, unspecified (3) Hyperkalemia: Assessment and Plan: lasix worked and recheck normal this morning 5.1 (4) Acute renal failure: Assessment and Plan: sounds like she has a history of chronic kidney disease unsure of what her baseline creatinine is. Monitor daily (5) Hypertension: Assessment and Plan: continue amlodipine, metoprolol and will hold the valsartan given elevated potassium but will restart today (6) CAD (coronary atherosclerotic disease): Assessment and Plan: lipid panel normal, still holding plavix (7) History of illicit drug use: Assessment and Plan: may continue Suboxone Plan patient is a full code Patient is inpatient status and is expected to stay more than two midnights SCDs and compression hose for deep vein thrombosis prophylaxis given patient's acute bleed
[2023-08-17] MEDS: AMLODIPINE BESYLATE 5 MG TABLET 10 MG PO (08:38)
[2023-08-17] MEDS: METOPROLOL TARTRATE 25 MG TABLET PO ×2 (08:38→20:34)
[2023-08-17] MEDS: PANTOPRAZOLE SODIUM 40 MG VIAL IV ×2 (08:38→20:34)
[2023-08-17] MEDS: NON-FORMULARY 1 EACH (Buprenorphine-Naloxone 8-2 mg film) 1.5 EACH SL (08:39)
--- NOTE | 2023-08-17 09:36 | XR_ITS ---
The [address] [address] Patient Name: BELLE JEONG MRN: [id number] date: 1950 Sex: F Assigned Patient Location: [place] Current Patient Location: [place] Accession/Order Number: [id number] Exam Date: 08/17/2023 10:15 Report Date: 08/17/2023 11:27 At the request of: RUBI BERNARD Procedure: XR chest 1V EXAMINATION: XR chest 1V 08/17/2023 8:25 AM PDT HISTORY: shortness of brearth TECHNIQUE: Single frontal view of the chest acquired. COMPARISONS: Chest x-ray 08/15/2023. FINDINGS: Lines/tubes/other: None. Heart and mediastinum: Stable. Bones: No acute osseous abnormality. Lungs: Patchy bibasilar opacification, similar. There is pulmonary vascular engorgement and interstitial septal thickening, slightly worse. Pleura: There is no significant pleural effusion or pneumothorax. Other: None. XR/XR chest 1V IMPRESSION: 1. Bibasilar patchy opacification, similar. 2. Similar to slightly worsening findings of moderate pulmonary edema which may be exacerbated by the patient's positioning in exam technique. Electronically authenticated by: EDUARDA MADDEN Date: 08/17/2023 11:27
[2023-08-17] MEDS: FUROSEMIDE 40 MG/4 ML VIAL IVP (10:04)
--- NOTE | 2023-08-17 10:05 | PC.NURSE ---
SS enema 1500 cc given with return of very pale green clear fluid...no formed stool. Pt tolerated well with no discomfort and able to hold fluid well, then evacuate it.
--- NOTE | 2023-08-17 10:46 | CM.NOTE ---
Rounds made with Dr. Koenig pt scheduled for EGD and Colonoscopy today.
[2023-08-17] MEDS: LACTATED RINGER'S SOLUTION 1,000 ML 50 ML IV (11:17)
--- NOTE | 2023-08-17 11:30 | CM.NOTE ---
Important Message From Medicare discussed with pt, pt verbalizes understanding and signs paper. Original given to pt and copy placed on pt's chart.
[2023-08-17 11:58] LABS: SARS-CoV-2 Ag reflex to NAA Negative (NEGATIVE)
--- NOTE | 2023-08-17 12:38 | PM.GSPRC ---
Indications for Procedure: Patient is a 73-year-old female recently admitted with significant iron deficiency anemia. After evaluation she is recommended to undergo EGD and colonoscopy as she has not had either procedure done in the past. The risks benefits options and potential indications and procedures were discussed in detail with her and she agreed to proceed and consent was signed. Pre-op diagnosis: colon cancer screening Post-op diagnosis: other (normal EGD, normal colonoscopy) Procedure: EGD, colonoscopy Anesthesia: MAC Surgeon: Royal Allen Procedure Summary: The patient was brought to the endoscopy suite and placed in the supine upright position. Under MAC the fiberoptic endoscope was passed through the oropharynx and the esophagus. This is easily advanced into the stomach. The gastric mucosa appeared grossly normal. There is no evidence of blood or bleeding. The endoscope was passed through the pylorus into the duodenum. The 1st and 2nd portions of the duodenum were unremarkable. The endoscope was then withdrawn into the stomach and retroflexed. The upper portion stomach appeared grossly normal. The gastroesophageal jjunction appeared normal. The stomach was decompressed. Remainder of the esophagus appeared nnormal on final withdrawal of the endoscope. The patient was then placed in the left lateral decubitus position for colonoscopy. Under continued MAC the fiberoptic colonoscope was introduced into the rectum. This was gradually advanced through the colon to the cecum. The cecal landmarks were identified. The bowel prep was good. Gradual withdrawal of the colonoscope was then undertaken. No vascular polypoid or mucosal lesions were noted throughout the entire length of the colon. The anal rectal canal was unremarkable. The colon was decompressed. Digital rectal exam was unremarkable. The procedure was ended and the patient was transferred to the recovery area in stable condition. Recommended follow-up colonoscopy in ten years. Estimated blood loss (mL): 0 Specimens: none Complications: No
--- NOTE | 2023-08-17 13:52 | SWNOTE1 ---
SW met with pt and family in room to discuss dc needs. Pt lives at home with her daughter, and grandchildren. Pt has a walker at home, but only uses it as needed. Pt has oxygen on here at hospital, but does not wear home oxygen. Pt stated when she had covid she had oxygen for about 2 months then was able to wean off. Pt does not have any HH coming in. Pt does not voice any concerns for discharge at this time. SW to address the suboxone when family is not in room. SW to follow as needed.
[2023-08-17] MEDS: SPIRONOLACTONE 25 MG TABLET PO (14:02)
[2023-08-17 16:38] LABS: SARS-CoV-2 NAA NOT DETECTED (NOT DETECTE)
[2023-08-18] VITALS (10 sets, daily range): BP systolic 145; BP diastolic 62; PULSE 64–74; RESP 18; TEMP 36.7; O2SAT 86–94
[2023-08-18 05:19] LABS: Basophils Percent Auto 1.2 % (0.2-2.0); Eosinophils Absolute Auto 0.2 10^3/uL (0.0-0.7); Eosinophils Percent Auto 7.5 % (0.9-7.0); Hemoglobin 8.1 g/dL (12.0-16.0); Immature Granulocytes Abs Auto 0.01 10^3/uL (0.00-0.03); Immature Granulocytes Pct Auto 0.3 % (0.0-0.5); Lymphocytes Absolute Auto 0.6 10^3/uL (1.2-3.8); Lymphocytes Percent Auto 17.7 % (20.5-60.0); Mean Corpuscular HGB Conc 27.9 g/dL (29.9-35.2); Mean Corpuscular Hemoglobin 24.7 pg (26.7-34.0); Mean Corpuscular Volume 88.4 fL (81.0-99.0); Mean Platelet Volume 9.7 fL (9.5-13.5); Monocytes Absolute Auto 0.5 10^3/uL (0.3-0.8); Monocytes Percent Auto 14.3 % (1.7-12.0); Neutrophils Absolute Auto 1.9 10^3/uL (1.4-6.5); Platelet Count 249 10^3/uL (150-450); Red Blood Count 3.28 10^6/uL (4.20-5.40); White Blood Count 3.2 10^3/uL (4.0-11.0)
[2023-08-18 05:41] LABS: Alanine Aminotransferase 16 U/L (14-59); Albumin Globulin Ratio 0.7; Albumin Level 2.7 g/dL (3.4-5.0); Alkaline Phosphatase 127 U/L (46-116); Anion Gap 9.3; Aspartate Amino Transferase 15 U/L (15-37); Bilirubin Total 0.7 mg/dL (0.2-1.0); Calcium 8.2 mg/dL (8.5-10.1); Carbon Dioxide 30.2 mmol/L (21.0-32.0); Chloride 103 mmol/L (98-107); Estimated GFR (African America 42 (>=60); Estimated GFR (Non-African Ame 35 (>=60); Globulin 3.7 g/dL; Glucose 88 mg/dL (74-106); Potassium 4.5 mmol/L (3.5-5.1); Sodium 138 mmol/L (136-145); Total Protein 6.4 g/dL (6.4-8.2)
[2023-08-18] MEDS: AMLODIPINE BESYLATE 5 MG TABLET 10 MG PO (08:30)
[2023-08-18] MEDS: SPIRONOLACTONE 25 MG TABLET PO (08:31)
[2023-08-18] MEDS: NON-FORMULARY 1 EACH (Buprenorphine-Naloxone 8-2 mg film) 1.5 EACH SL (08:31)
[2023-08-18] MEDS: METOPROLOL TARTRATE 25 MG TABLET PO (08:31)
[2023-08-18] MEDS: FUROSEMIDE 40 MG TABLET PO (08:31)
--- NOTE | 2023-08-18 08:54 | P.DS_ITS ---
DS: Providers Provider Date of admission: 08/15/23 15:34 Primary care physician: ANNA REYNOLDS Admitting clinician: Dana Koenig Consults: 08/15/23 15:35 Occupational Therapy Eval and Treat Routine Reason for consultation: weakness Has provider been notified: No Physical Therapy Eval and Treat Routine Reason for consultation: weakness Has provider been notified: No 08/15/23 16:20 Consult to General Surgeon Routine Consulting Provider: Royal Allen Reason for consultation: possible UGI Bleed/EGD Has provider been notified: Yes 08/17/23 10:51 Consult to Cardiology Routine Consulting Provider: Hospitalist Reason for consultation: acute decompensated CHF, symptomatic anemia Has provider been notified: No Attending physician on discharge: Dana Koenig DS: Diagnosis Discharge Diagnosis (1) Symptomatic anemia: (2) Iron deficiency anemia: (3) Acute on chronic congestive heart failure: Qualifiers: Heart failure type: unspecified Qualified Code(s): I50.9 - Heart failure, unspecified (4) Acute renal failure: (5) Hypertension: (6) CAD (coronary atherosclerotic disease): (7) History of illicit drug use: (8) COPD (chronic obstructive pulmonary disease): DS: Summary Hospital Course Hospital Course: patient is a 73-year-old female who was admitted for symptomatic anemia with hemoglobin of 6.6. Patient received two units of packed red blood cells. Hemoglobin has remained stable at 8.1 this morning. Patient also received a upper endoscopy and colonoscopy per general surgery yesterday which both were deemed negative.no masses seen or acute bleeds. Iron was significantly low at nine, patient received an iron transfusion and brought iron level up to seventeen. Will be discharged home on daily oral iron. Would benefit from a outpatient hematology consult for her iron deficiency anemia. Patient also had acute decompensated heart failur ewith elevated pro BNP and chest x-ray concerning for pulmonary edema, echocardiogram showed ejection fraction of 60-65 percent with left ventricular hypertrophy grade 2 diastolic dysfunction and biatrial enlargement enlargement. Patient received Lasix 40 mg IV daily. We'll continue Lasix at 40 mg by mouth daily for seven days. She has a close follow-up with her concrete grinder operator who then well assess fluid status and edema if this is a chronic medication that she needs to continue. I also started spironolactone 50 mg once a day in addition to her blood pressure medications. Potassium remained normal despite the Lasix so will not be discharged on any potassium supplement. Patient will need a pro-BMP along with a CMP when she sees her concrete grinder operator. Patient also requiring oxygen continuous at 4 L. Patient is an ex-smoker no diagnosed chronic obstructive pulmonary disease but more than likely has underlying chronic obstructive pulmonary disease that is been undiagnosed. She will be discharged with home oxygen therapy to wear continuously for a pulse ox less than eighty-six percent on room air. Her PCP can follow than continual need for oxygen therapy.In regards to her heart failure she is also to abide by 1500 ML fluid restriction and low-salt diet. patient will be discharged home today in stable condition with close follow-ups with cardiology and her primary care physician. Status at Discharge Functional status at discharge: independent ambulation Overall status at discharge: patient is back to baseline Time Spent with Patient Time attestation: Total time spent providing and/or coordinating discharge services: Exam Narrative Exam Narrative: General: Patient is alert, and oriented to person, place and time with normal affect, proper hygiene Skin: no visible rashes, or ulcers Head: atraumatic, acephalic Eyes: PERRLA, no nystagmus present, conjunctiva clear, no scleral icterus Heart: Normal rate and rhythm, no murmurs/rubs/gallops Lungs: no audible wheezes, crackles and normal breath sounds all lung corbin Musculoskeletal: +1 swelling bilateral lower extremities Vascular: Normal carotid, radial, femoral, posterior tibial, and dorsalis pedis pulses Lymph: no supraclavicular, axillary, or anterior/posterior cervical adenopathy Neuro: CN II-X grossly intact, normal sensation upper and lower extremities Constitutional Vital Signs, click to edit/add: Last Vital Signs Temp 98.1 F 08/18/23 04:57 Pulse 65 08/18/23 07:59 Resp 18 08/18/23 04:57 BP 145/62 H 08/18/23 04:57 Pulse Ox 91 L 08/18/23 04:57 O2 Del Method Nasal Cannula 08/18/23 04:57 O2 Flow Rate 4 08/18/23 04:57 DS: Data Data Completed and Pending Labs on day of discharge: Labs from last 24 hours 08/18/23 08/17/23 04:39 11:42 WBC 3.2 L RBC 3.28 L Hgb 8.1 L Hct 29.0 L MCV 88.4 MCH 24.7 L MCHC 27.9 L RDW 18.0 H Plt Count 249 MPV 9.7 Neut % (Auto) 59.0 Lymph % (Auto) 17.7 L [place] % (Auto) 14.3 H Eos % (Auto) 7.5 H Baso % (Auto) 1.2 Neut # (Auto) 1.9 Lymph # (Auto) 0.6 L [place] # (Auto) 0.5 Eos # (Auto) 0.2 Baso # (Auto) 0.0 Abs Immat Gran (auto) 0.01 Imm/Tot Granulo (auto) 0.3 Sodium 138 Potassium 4.5 Chloride 103 Carbon Dioxide 30.2 Anion Gap 9.3 BUN 40.0 H Creatinine 1.48 H Est GFR ( Amer) 42 L Est GFR (Non-Af Amer) 35 L BUN/Creatinine Ratio 27.0 Glucose 88 Calcium 8.2 L Total Bilirubin 0.7 AST 15 ALT 16 Alkaline Phosphatase 127 H Total Protein 6.4 Albumin 2.7 L Globulin 3.7 Albumin/Globulin Ratio 0.7 SARS-CoV-2 RNA (REN) Not detected SARS-CoV-2 Ag (CV2AG) Negative Discharge Plan Discharge Disposition: Home, Self-Care Condition: Good Discharge Medications: New furosemide 40 mg Tablet 40 mg PO QD 7 Days Qty: 7 0RF spironolactone 25 mg Tablet 25 mg PO QD 30 Days Qty: 30 0RF ferrous sulfate [Iron (ferrous sulfate)] 325 mg (65 mg iron) tablet 325 mg PO DAILY 30 Days Qty: 30 0RF Continued amlodipine 10 mg tablet 10 mg PO DAILY buprenorphine-naloxone 8-2 mg film 1.5 film sublingual Q24H metoprolol tartrate 25 mg tablet 25 mg PO Q12H naloxone [Narcan] 4 mg/actuation spray,non-aerosol 1 spray INTRANASAL Q3M PRN (Reason: opioid overdose) valsartan 80 mg tablet 80 mg PO DAILY Held clopidogrel 75 mg tablet 75 mg PO DAILY Hold Instructions: Resume on 08/21/23. Activity: increase activity as tolerated and wear oxygen at all times Activity Detail: 4L NC oxygen continuous Diet: low salt diet and other Diet Detail: 1500 L fluid restriction Patient Instructions: Iron Supplements (By mouth), Spironolactone (By mouth), Furosemide (By mouth), Heart Failure (DC), Acute Kidney Injury (DC), Anemia (DC) Forms: Portal Instructions Follow Up Appointments: Follow up appt. with Dr. Kim (cardio) on @ 11:20am Office #: [phone] [address] Please discuss ECHO, and addition of Lasix and spironolactone Follow up appt. with Dr. Reynolds on Aug. 2 @ 1pm Office #: [phone] will need recheck cbc, iron level and possible referral to Hematology for Iron def anemia
[2023-08-18] MEDS: PANTOPRAZOLE SODIUM 40 MG VIAL IV (09:21)
--- NOTE | 2023-08-18 11:10 | SWNOTE1 ---
Pt will need home oxygen. SW spoke with pt in regards to companies. She had o2 in past, pt called daughter and they think it was medical service [employer] that provided home o2. SW to call. [facility] [employer] does not see name in system. SW to try [employer]. SW also addressed suboxone as well. Pt has been on suboxone for 2 months and sees someone in [place]. She has zoom meetings every week. She plans on being on it for a year and then wean off of it.
--- NOTE | 2023-08-18 11:15 | SWNOTE1 ---
[facility] does take [employer] medicare. to send referral once walk test, script, and documentation is complete
--- NOTE | 2023-08-18 13:09 | SWNOTE1 ---
oxygen referral sent to [facility].
[2023-08-18] MEDS: FLUCONAZOLE 150 MG TABLET PO (13:18)
--- NOTE | 2023-08-18 13:35 | CM.NOTE ---
Rounds made with obdulia Figueroa for discharge to home. No discharge needs identified. F/u scheduled to see prototype deicer assembler.
--- NOTE | 2023-08-18 14:21 | SWNOTE1 ---
[facility] [place] is all set with home oxygen, tank is at hospital. SW let pt and family in room know to call [facility] [place] on way home, phone number is attached to [facility]. SW notified nursing.
--- NOTE | 2023-08-19 16:11 | CM.DCFOLLOWU ---
Person spoke with: patient How are you feeling? well How is your pain? no pain Did you understand your discharge instructions? yes Do you have any questions about your discharge instructions? no Were you given any prescriptions at discharge? yes Were you able to get your prescriptions filled? yes Do you understand how to take your medications as ordered? yes Do you have any questions about your follow up appointment and do you plan to keep your follow up appointment? no questions, yes follow ups are scheduled and she is keeping them Is there anything else that you would like to discuss? no Questions/Comments/Concerns/Other:
== END 2023-08-18 14:47 | disposition home or self-care (01) | DRG 811 ==
LOC: ER 15:36 → MS 15:38
PROVIDERS: Surgery; Admitting Provider Family Medicine; Emergency Provider Emergency Medicine; PCP Family Medicine; Visit Provider Family Medicine
PROC: 0DJ08ZZ Inspection of Upper Intestinal Tract, Via Natural or Artificial Opening Endoscopic (ICD-10-PCS; principal; 2023-08-17 11:35)
DX: D50.9 Iron deficiency anemia, unspecified (principal); I50.33 Acute on chronic diastolic (congestive) heart failure; N17.9 Acute kidney failure, unspecified; F11.20 Opioid dependence, uncomplicated; I11.0 Hypertensive heart disease with heart failure; E87.5 Hyperkalemia; I25.10 Atherosclerotic heart disease of native coronary artery without angina pectoris; R09.02 Hypoxemia; J44.9 Chronic obstructive pulmonary disease, unspecified; I25.2 Old myocardial infarction; Z87.891 Personal history of nicotine dependence; Z79.02 Long term (current) use of antithrombotics/antiplatelets; Z79.899 Other long term (current) drug therapy; Z95.5 Presence of coronary angioplasty implant and graft; Z80.0 Family history of malignant neoplasm of digestive organs
CPT/HCPCS: 36415; 36430; 71045; 80048; 80053; 80061; 82728; 83540; 83550; 83880; 84484; 85014; 85018; 85025; 85610; 86850; 86900; 86901; 87635; 93005; 93306; 94618; 94640; 94761; 96365; 96366; 96375; 96376; 97161; 97165; 97535; 99285; 87811; G0328; J1756; J2704; P9016; U0003

== ENCOUNTER 2023-11-18 15:39 | Inpatient (IN) | payer MEDICARE, SELFPAY ==
[2023-11-18] VITALS (16 sets, daily range): BP systolic 114–163; BP diastolic 40–70; PULSE 65–81; RESP 16–20; TEMP 36.7–37.2; O2SAT 83–100; BMI 363.1; BMI 36.0
--- NOTE | 2023-11-18 15:51 | XR_ITS ---
The [address] [address] Patient Name: BELLE JEONG MRN: [id number] date: 1950 Sex: F Assigned Patient Location: ED.MAIN Current Patient Location: ER Accession/Order Number: [id number] Exam Date: 11/18/2023 16:45 Report Date: 11/18/2023 17:34 At the request of: MATIAS MATHIS Procedure: XR chest 1V EXAM: XR chest 1V HISTORY: Shortness of breath COMPARISON: Chest x-ray 08/17/2023 TECHNIQUE: Portable chest FINDINGS: IMPRESSION: Again demonstrated is poor inspiratory effort. No focal acute consolidation or infiltrate. No pneumothorax or pleural effusion. The cardiac, mediastinal and hilar contours are unremarkable. The heart is not enlarged. No visualized acute osseous abnormality. Surgical suture anchors within the right humeral head. Atherosclerosis of the vascular structures Electronically authenticated by: JANINE HURTADO Date: 11/18/2023 17:34
--- NOTE | 2023-11-18 15:51 | CT_ITS ---
The [address] [address] Patient Name: BELLE JEONG MRN: [id number] date: 1950 Sex: F Assigned Patient Location: ED.MAIN Current Patient Location: Accession/Order Number: [id number] Exam Date: 11/18/2023 16:45 Report Date: 11/18/2023 17:50 At the request of: MATIAS MATHIS Procedure: CT lumbar spine wo con EXAM: CT lumbar spine wo con TECHNIQUE: Axial CT images were obtained through the lumbar spine along with sagittal and coronal reformatted images. Dose reduction techniques were achieved by using automated exposure control and/or adjustment of mA and/or kV according to patient size and/or use of iterative reconstruction technique. HISTORY: peripheral numbness COMPARISON: None. FINDINGS: Bones: No acute fracture. Slight biconcave height loss of L2 vertebral body appears chronic without evidence for acute fracture or surrounding hematoma. Bony hemangiomas of L1, L2 and L5 vertebral bodies. Small sclerotic focus of the right side of the L2 vertebral body is likely a benign bone island. Alignment: The alignment is anatomic. No acute subluxation. Arthritic changes: Moderate degenerative disc disease at L5-S1 with disc space narrowing, endplate ridging and vacuum disc phenomenon. Severe degenerative facet change on the left at L4-L5. Severe degenerative acquired neural foraminal narrowing on the left at L4-L5. Disc spaces: Moderate disc bulging and degenerative endplate change at L5-S1 contributing to severe right neural foraminal narrowing and moderate left neural foraminal narrowing at L5-S1. Soft tissues: No soft tissue mass or large hematoma. CT/CT lumbar spine wo con IMPRESSION: No acute fracture or subluxation. No acute disc herniation. Degenerative acquired neural foraminal narrowing most significant on the left at L4-L5 and bilaterally at L5-S1. Correlate for any signs of left L4 bilateral L5 radiculopathy. Electronically authenticated by: HALIMA ANDREA Date: 11/18/2023 17:50
--- NOTE | 2023-11-18 15:51 | CT_ITS ---
The [address] [address] Patient Name: BELLE JEONG MRN: [id number] date: 1950 Sex: F Assigned Patient Location: ED.MAIN Current Patient Location: Accession/Order Number: [id number] Exam Date: 11/18/2023 16:45 Report Date: 11/18/2023 17:36 At the request of: MATIAS MATHIS Procedure: CT head/brain wo con EXAM: CT head/brain wo con HISTORY: peripheral numbness COMPARISON: None. TECHNIQUE: Axial CT scans through the head were obtained without IV contrast administration. Dose reduction techniques were achieved by using: automated exposure control and/or adjustment of mA and /or kV according to patient size and/or use of iterative reconstruction technique. FINDINGS: There is no evidence of acute intracranial hemorrhage or abnormal extra-axial fluid collection. No mass effect or midline shift is seen. There is no evidence of large acute territorial infarction. There is no hydrocephalus. Mild enlarged ventricles and sulci, consistent with age appropriate cerebral atrophy. There are bifrontal mild low-attenuation patchy areas in subcortical and periventricular white matter, likely represents chronic microvascular ischemia. There are atherosclerotic calcifications of bilateral intracranial carotid arteries. To the limit of CT, the posterior fossa appears unremarkable. No definite acute fracture is identified. There are multiple tiny lucent lesions in the skull. Soft tissues are unremarkable. The visualized orbits show no abnormality The visualized paranasal sinuses show no air-fluid level. Mastoid air cells are clear. CT/CT head/brain wo con IMPRESSION: No CT evidence of acute intracranial abnormality. If there is sufficient clinical concern for acute brain parenchymal pathology, consider MRI for further evaluation. Mild chronic microvascular ischemia. Incidental note of multiple small lucent lesions in the skull. Differential considerations include metastasis, osteoporosis, hematologic or metabolic disorders. Electronically authenticated by: LAI CARROLLU Date: 11/18/2023 17:36
--- NOTE | 2023-11-18 15:55 | ED.WEAKNESS1 ---
HPI - Weakness General Chief complaint: Weakness Stated complaint: GENERAL WEAKNESS Time Seen by Provider: 11/18/23 15:46 Source: patient Mode of arrival: ambulance Limitations: no limitations and physical limitation History of Present Illness HPI Narrative: Patient is a 73-year-old female with a history of congestive heart failure who presents to the emergency department by ambulance for the evaluation of numbness to the lower extremities for the last 2 weeks. She states she continues to have worsening numbness which prompted her to call 911 today. She states she saw orthopedics 2 weeks ago and was diagnosed with severe peripheral neuropathy. She was instructed to call her PCP for further testing but she states she is in between primary care physicians at this time. She has a history of CHF, she does not have home oxygen but has not needed to wear it for several months. On arrival to her home, EMS noted that the patient was hypoxic, the patient does not complain of chest pain, shortness of breath. She has had no recent fevers, chills, cough or congestion. No nausea or vomiting. Related Data Home Medications Medication Instructions Recorded Confirmed buprenorphine 8 mg-naloxone 2 mg 1.5 film sublingual Q24H 08/15/23 11/18/23 sublingual film clopidogrel 75 mg tablet 75 mg PO DAILY 08/15/23 11/18/23 metoprolol tartrate 25 mg tablet 25 mg PO Q12H 08/15/23 11/18/23 naloxone 4 mg/actuation nasal 1 spray intranasal Q3M PRN opioid 08/15/23 11/18/23 spray (Narcan) overdose valsartan 80 mg tablet 80 mg PO DAILY 08/15/23 11/18/23 amlodipine 5 mg tablet 5 mg PO DAILY 11/18/23 11/18/23 furosemide 20 mg tablet 20 mg PO DAILY 11/18/23 11/18/23 prasugrel 10 mg tablet 10 mg PO DAILY 11/18/23 11/18/23 Previous Rx's Medication Instructions Recorded ferrous sulfate 325 mg (65 mg 325 mg PO DAILY 30 days #30 tabs 08/18/23 iron) tablet (Iron (ferrous sulfate)) spironolactone 25 mg tablet 25 mg PO QD 30 days #30 tabs 08/18/23 Allergies Allergy/AdvReac Type Severity Reaction Status Date / Time No Known Drug Allergies Allergy Verified 08/15/23 12:42 Review of Systems ROS Constitutional Denies: fever or chills Ears, nose, mouth, and throat Denies: throat pain or nasal congestion Cardiovascular Denies: chest pain Respiratory Denies: shortness of breath or cough Gastrointestinal Denies: nausea or vomiting Genitourinary Denies: painful urination Musculoskeletal Denies: back pain or neck pain Integumentary/Breast Denies: rash Neurological Denies: headache Endocrine Denies: excessive urination [facility] Medical History (Updated 11/21/23 @ 18:10 by Haja Olsen MD) Neuropathy ?G62.9 - Polyneuropathy, unspecified (ICD-10) Anemia requiring transfusions ?D64.9 - Anemia, unspecified (ICD-10) Acute on chronic congestive heart failure ?I50.9 - Heart failure, unspecified (ICD-10) CKD (chronic kidney disease) stage 3, GFR 30-59 ml/min ?N18.30 - Chronic kidney disease, stage 3 unspecified (ICD-10) Chronic respiratory failure with hypoxia ?J96.11 - Chronic respiratory failure with hypoxia (ICD-10) Melanoma ?C43.9 - Malignant melanoma of skin, unspecified (ICD-10) History of illicit drug use ?F19.91 - Other psychoactive substance use, unspecified, in remission (ICD-10) Kidney disease ?N28.9 - Disorder of kidney and ureter, unspecified (ICD-10) CHF (congestive heart failure) ?I50.9 - Heart failure, unspecified (ICD-10) Heart attack ?I21.9 - Acute myocardial infarction, unspecified (ICD-10) Anemia ?D64.9 - Anemia, unspecified (ICD-10) Anemia ?D64.9 - Anemia, unspecified (ICD-10) CHF (congestive heart failure) ?I50.9 - Heart failure, unspecified (ICD-10) Surgical History H/O: hysterectomy ?Z90.710 - Acquired absence of both cervix and uterus (ICD-10) History of cholecystectomy ?Z90.49 - Acquired absence of other specified parts of digestive tract (ICD-10) History of total left knee replacement ?Z96.652 - Presence of left artificial knee joint (ICD-10) Hx of appendectomy ?Z90.49 - Acquired absence of other specified parts of digestive tract (ICD-10) History of heart artery stent ?Z95.5 - Presence of coronary angioplasty implant and graft (ICD-10) Family History Father Family history of CHF (congestive heart failure) Family history of diabetes mellitus Family history of hypertension Sister Family history of myocardial infarction Family history of hypertension Mother Family history of COPD (chronic obstructive pulmonary disease) Family history of hypertension Daughter Family history of diabetes mellitus Social History Within the past year, how often did you have a drink containing alcohol: never Within the past year, how many standard drinks containing alcohol did you have on a typical day: 1 or 2 Within the past year, how often did you have six or more drinks on one occasion: never Total score: 0 Score interpretation: A score less than 3 is consistent with normal alcohol consumption. Smoking status: Never smoker Non-prescribed substance use: former substance user, amphetamines/methamphetamines and opiods/painkillers Non-prescribed substance use details: states has been clean for 6 months Previous occupational history: Retired Known occupational exposures/hazards: No Highest level of school completed/degree received: high school graduate Are you now , , , , never or living with a partner: In a typical week, how many times do you talk on the telephone with family, friends, or neighbors: 3 or more times per week How often do you get together with friends or relatives: 3 or more times per week How often do you attend christian or latter day services: never Do you belong to any clubs or organizations such as christian groups unions, fraternal or athletic groups, or school groups: no Total score: 1 Score interpretation: A score of less than or equal to 1 indicates the most socially isolated. Little interest or pleasure in doing things: not at all Feeling down, depressed, or hopeless: not at all Feel stressed/tense/nervous/anxious/difficulty sleeping: not at all Gender Identity: female Exam Narrative Exam Narrative: Gen.: Awake, alert, in no distress Head: Normocephalic, atraumatic ENT: Moist mucous membranes Respiratory: No respiratory distress, lungs clear bilaterally; patient breathing easily, speaking comfortably. No wheezing or rhonchi noted Cardio: Regular rate and rhythm Extremities: Moves extremities equally, no pedal edema; patient with normal dorsiflexion and plantarflexion of the lower extremities, no foot drop noted Psych: Normal mood and affect Neuro: No focal neuro deficit Skin: Warm, dry, intact Constitutional Vital Signs, click to edit/add: Last Vital Signs Temp 98.1 F 11/22/23 14:43 Pulse 86 11/22/23 20:22 Resp 20 11/22/23 20:22 BP 134/64 11/22/23 14:43 Pulse Ox 96 11/22/23 20:22 O2 Del Method Nasal Cannula 11/22/23 20:22 O2 Flow Rate 1 11/22/23 20:22 Course Vital Signs Vital signs: Vital Signs Temperature 98.9 F 11/18/23 15:40 Pulse Rate 79 11/18/23 15:40 Respiratory Rate 20 11/18/23 15:40 Blood Pressure 141/48 L 11/18/23 15:40 Pulse Oximetry 83 L 11/18/23 15:40 Oxygen Delivery Method Room Air 11/18/23 15:40 Temperature 98.1 F 11/22/23 14:43 Pulse Rate 86 11/22/23 20:22 Respiratory Rate 20 11/22/23 20:22 Blood Pressure 134/64 11/22/23 14:43 Pulse Oximetry 96 11/22/23 20:22 Oxygen Delivery Method Nasal Cannula 11/22/23 20:22 Oxygen Delivery Flow Rate 1 11/22/23 20:22 MDM - Weakness MDM Narrative Medical decision making narrative: Patient found to have anemia, she has a history of iron deficiency anemia and had previous anemia requiring transfusion back in July, she had an endoscopy and colonoscopy that were unremarkable at that time. Blood consent was obtained and the patient was ordered to have 2 units of blood transfusion. She was also found to have elevated BNP, normal troponin. CT of the brain with nothing acute, small lesions representing osteoporosis versus other disorder and lumbar spine CT with no evidence of acute process, foraminal narrowing at L4/L5. Patient with no focal neurodeficits in the ER. She was given IV Lasix, Disla catheter placed and was kept on oxygen by nasal cannula with improvement. She is admitted for anemia, hypoxia, CHF and stable at this time. Medical Records Attestation: I reviewed the patient's medical records. Lab Data Attestation: I reviewed the patient's lab results. Labs: Lab Results 11/18/23 11/18/23 11/18/23 Range/Units 16:04 16:38 16:44 WBC 3.6 L (4.0-11.0) 10^3/uL RBC 2.70 L (4.20-5.40) 10^6/uL Hgb 6.9 L* (12.0-16.0) g/dL Hct 25.1 L (36.0-48.0) % MCV 93.0 (81.0-99.0) fL MCH 25.6 L (26.7-34.0) pg MCHC 27.5 L (29.9-35.2) g/dL RDW 17.9 H (11.0-15.0) % Plt Count 254 (150-450) 10^3/uL MPV 9.2 L (9.5-13.5) fL Neut % (Auto) 47.3 (43.0-75.0) % Lymph % (Auto) 27.2 (20.5-60.0) % [place] % (Auto) 19.3 H (1.7-12.0) % Eos % (Auto) 4.2 (0.9-7.0) % Baso % (Auto) 1.4 (0.2-2.0) % Neut # (Auto) 1.7 (1.4-6.5) 10^3/uL Lymph # (Auto) 1.0 L (1.2-3.8) 10^3/uL [place] # (Auto) 0.7 (0.3-0.8) 10^3/uL Eos # (Auto) 0.2 (0.0-0.7) 10^3/uL Baso # (Auto) 0.1 (0.0-0.1) 10^3/uL Abs Immat Gran (auto) 0.02 (0.00-0.03) 10^3/uL Imm/Tot Granulo (auto) 0.6 H (0.0-0.5) % PT 10.6 (9.0-11.6) sec INR 1.00 APTT 29.9 (22.3-36.2) sec Puncture Site R radial ABG pH 7.389 (7.350-7.450) ABG pCO2 50.1 H (35.0-45.0) mmHg ABG pO2 75.8 L (80.0-100.0) mmHg ABG HCO3 30.3 H (22.0-26.0) mmol/L ABG O2 Saturation 96.3 % ABG Base Excess 5.3 H (-2.0-2.0) mmol/L Rick Test Positive (POSITIVE) O2 Liters/Min 2 Sodium 135 L (136-145) mmol/L Potassium 5.0 (3.5-5.1) mmol/L Chloride 99 (98-107) mmol/L Carbon Dioxide 31.4 (21.0-32.0) mmol/L Anion Gap 9.6 BUN 42.0 H (7.0-18.0) mg/dL Creatinine 1.83 H (0.55-1.02) mg/dL Est GFR ( Amer) 33 L (>=60) Est GFR (Non-Af Amer) 27 L (>=60) BUN/Creatinine Ratio 23.0 Glucose 116 H (74-106) mg/dL Lactate 1.8 (0.4-2.0) mmol/L Calcium 8.5 (8.5-10.1) mg/dL Magnesium 2.0 (1.8-2.4) mg/dL Total Bilirubin 0.6 (0.2-1.0) mg/dL AST 13 L (15-37) U/L ALT 8 L (14-59) U/L Alkaline Phosphatase 134 H (46-116) U/L Troponin I High Sens 17.5 (4.0-51.3) pg/mL NT-Pro-B Natriuret Pep 8761.0 H* (<=900.0) pg/mL Total Protein 6.9 (6.4-8.2) g/dL Albumin 3.1 L (3.4-5.0) g/dL Globulin 3.8 g/dL Albumin/Globulin Ratio 0.8 Triglycerides (<=150) mg/dL Cholesterol (<=200) mg/dL LDL Cholesterol, Calc mg/dL VLDL Cholesterol mg/dL HDL Cholesterol (40-60) mg/dL Cholesterol/HDL Ratio Urine Color (YELLOW) Urine Clarity (CLEAR) Urine pH (5.0-9.0) Ur Specific [place] (1.005-1.025) Urine Protein (NEG/TRACE) mg/dL Urine Glucose (UA) (NEGATIVE) mg/dL Urine Ketones (NEGATIVE) mg/dL Urine Occult Blood (NEGATIVE) Urine Nitrite (NEGATIVE) Urine Bilirubin (NEGATIVE) Urine Urobilinogen (0.2-1.0) EU/dL Ur Leukocyte Esterase (NEGATIVE) SARS-CoV-2 (PCR) Negative (NEGATIVE) SARS-CoV-2 RNA (REN) Not detected (NOT DETECTE) Blood Type A Positive Antibody Screen Negative Crossmatch See Detail 11/18/23 11/19/23 11/19/23 Range/Units 17:40 05:46 16:56 WBC 3.3 L (4.0-11.0) 10^3/uL RBC 2.89 L (4.20-5.40) 10^6/uL Hgb 7.7 L 7.6 L (12.0-16.0) g/dL Hct 26.4 L (36.0-48.0) % MCV 91.3 (81.0-99.0) fL MCH 26.6 L (26.7-34.0) pg MCHC 29.2 L (29.9-35.2) g/dL RDW 16.4 H (11.0-15.0) % Plt Count 192 (150-450) 10^3/uL MPV 9.4 L (9.5-13.5) fL Neut % (Auto) 40.9 L (43.0-75.0) % Lymph % (Auto) 37.2 (20.5-60.0) % [place] % (Auto) 17.7 H (1.7-12.0) % Eos % (Auto) 3.0 (0.9-7.0) % Baso % (Auto) 0.9 (0.2-2.0) % Neut # (Auto) 1.3 L (1.4-6.5) 10^3/uL Lymph # (Auto) 1.2 (1.2-3.8) 10^3/uL [place] # (Auto) 0.6 (0.3-0.8) 10^3/uL Eos # (Auto) 0.1 (0.0-0.7) 10^3/uL Baso # (Auto) 0.0 (0.0-0.1) 10^3/uL Abs Immat Gran (auto) 0.01 (0.00-0.03) 10^3/uL Imm/Tot Granulo (auto) 0.3 (0.0-0.5) % PT (9.0-11.6) sec INR APTT (22.3-36.2) sec Puncture Site ABG pH (7.350-7.450) ABG pCO2 (35.0-45.0) mmHg ABG pO2 (80.0-100.0) mmHg ABG HCO3 (22.0-26.0) mmol/L ABG O2 Saturation % ABG Base Excess (-2.0-2.0) mmol/L Rick Test (POSITIVE) O2 Liters/Min Sodium 136 (136-145) mmol/L Potassium 4.3 (3.5-5.1) mmol/L Chloride 102 (98-107) mmol/L Carbon Dioxide 30.7 (21.0-32.0) mmol/L Anion Gap 7.6 BUN 42.0 H (7.0-18.0) mg/dL Creatinine 1.83 H (0.55-1.02) mg/dL Est GFR ( Amer) 33 L (>=60) Est GFR (Non-Af Amer) 27 L (>=60) BUN/Creatinine Ratio 23.0 Glucose 131 H (74-106) mg/dL Lactate (0.4-2.0) mmol/L Calcium 8.3 L (8.5-10.1) mg/dL Magnesium 1.7 L (1.8-2.4) mg/dL Total Bilirubin (0.2-1.0) mg/dL AST (15-37) U/L ALT (14-59) U/L Alkaline Phosphatase (46-116) U/L Troponin I High Sens (4.0-51.3) pg/mL NT-Pro-B Natriuret Pep (<=900.0) pg/mL Total Protein (6.4-8.2) g/dL Albumin (3.4-5.0) g/dL Globulin g/dL Albumin/Globulin Ratio Triglycerides 64 (<=150) mg/dL Cholesterol 117 (<=200) mg/dL LDL Cholesterol, Calc 67.0 mg/dL VLDL Cholesterol 12.8 mg/dL HDL Cholesterol 38 L (40-60) mg/dL Cholesterol/HDL Ratio 3.1 Urine Color Lt. yellow (YELLOW) Urine Clarity Clear (CLEAR) Urine pH 6.0 (5.0-9.0) Ur Specific [place] 1.010 (1.005-1.025) Urine Protein Trace (NEG/TRACE) mg/dL Urine Glucose (UA) Negative (NEGATIVE) mg/dL Urine Ketones Negative (NEGATIVE) mg/dL Urine Occult Blood Negative (NEGATIVE) Urine Nitrite Negative (NEGATIVE) Urine Bilirubin Negative (NEGATIVE) Urine Urobilinogen 0.2 (0.2-1.0) EU/dL Ur Leukocyte Esterase Negative (NEGATIVE) SARS-CoV-2 (PCR) (NEGATIVE) SARS-CoV-2 RNA (REN) (NOT DETECTE) Blood Type Antibody Screen Crossmatch Imaging Data CT scan - head: Attestation: I have reviewed the pertinent imaging results. Chest x-ray: Attestation: I have reviewed the pertinent imaging results. CT lumbar spine: Attestation: I have reviewed the pertinent imaging results. ECG Data Attestation: I personally reviewed and interpreted this ECG as follows: (Normal sinus rhythm at a rate of 73, no ST elevation or ectopy. EKG reviewed by attending physician) Discharge Plan Discharge Chief Complaint: Weakness Clinical Impression: Anemia requiring transfusions, CHF (congestive heart failure), Neuropathy, Hypoxia Patient Disposition: Admitted as Observation Time of Disposition Decision: 18:22 Condition: Good Discharge Date/Time: 11/18/23 20:31
[2023-11-18 16:22] LABS: Basophils Absolute Auto 0.1 10^3/uL (0.0-0.1); Basophils Percent Auto 1.4 % (0.2-2.0); Eosinophils Absolute Auto 0.2 10^3/uL (0.0-0.7); Eosinophils Percent Auto 4.2 % (0.9-7.0); Hematocrit 25.1 % (36.0-48.0); Immature Granulocytes Abs Auto 0.02 10^3/uL (0.00-0.03); Immature Granulocytes Pct Auto 0.6 % (0.0-0.5); Lymphocytes Percent Auto 27.2 % (20.5-60.0); Mean Corpuscular HGB Conc 27.5 g/dL (29.9-35.2); Mean Corpuscular Hemoglobin 25.6 pg (26.7-34.0); Mean Platelet Volume 9.2 fL (9.5-13.5); Monocytes Absolute Auto 0.7 10^3/uL (0.3-0.8); Monocytes Percent Auto 19.3 % (1.7-12.0); Neutrophils Absolute Auto 1.7 10^3/uL (1.4-6.5); Neutrophils Percent Auto 47.3 % (43.0-75.0); Platelet Count 254 10^3/uL (150-450); Red Cell Distribution Width 17.9 % (11.0-15.0); White Blood Count 3.6 10^3/uL (4.0-11.0)
[2023-11-18 16:25] LABS: Hemoglobin 6.9 g/dL (12.0-16.0)
[2023-11-18 16:36] LABS: SARS-CoV-2 Ag NEGATIVE (NEGATIVE)
--- NOTE | 2023-11-18 16:44 | PC.NURSE ---
SPOKE WITH PT'S DAUGHTER ON THE PHONE, UPDATE GIVEN WITH PT'S APPROVAL,
[2023-11-18 16:45] LABS: Lactate/Lactic Acid 1.8 mmol/L (0.4-2.0)
[2023-11-18 16:47] LABS: pH ABG 7.389 (7.350-7.450)
[2023-11-18 16:47] LABS: Partial Thromboplastin Time 29.9 sec (22.3-36.2); Prothrombin Time 10.6 sec (9.0-11.6)
[2023-11-18 16:48] LABS: Allen Test POSITIVE (POSITIVE); Base Excess ABG 5.3 mmol/L (-2.0-2.0); HCO3 ABG 30.3 mmol/L (22.0-26.0); Liters per Minute 2; O2 Mode NASAL CANNULA; Oxygen Saturation ABG 96.3 %; PO2 ABG 75.8 mmHg (80.0-100.0); Puncture Site R RADIAL
[2023-11-18 16:49] LABS: Alanine Aminotransferase 8 U/L (14-59); Albumin Globulin Ratio 0.8; Albumin Level 3.1 g/dL (3.4-5.0); Alkaline Phosphatase 134 U/L (46-116); Anion Gap 9.6; Aspartate Amino Transferase 13 U/L (15-37); Bilirubin Total 0.6 mg/dL (0.2-1.0); Calcium 8.5 mg/dL (8.5-10.1); Carbon Dioxide 31.4 mmol/L (21.0-32.0); Chloride 99 mmol/L (98-107); Estimated GFR (African America 33 (>=60); Estimated GFR (Non-African Ame 27 (>=60); Globulin 3.8 g/dL; Glucose 116 mg/dL (74-106); Sodium 135 mmol/L (136-145); Total Protein 6.9 g/dL (6.4-8.2); Troponin I High Sensitivity 17.5 pg/mL (4.0-51.3)
[2023-11-18 16:50] LABS: ABG PCO2 50.1 mmHg (35.0-45.0)
--- NOTE | 2023-11-18 16:59 | ECG_ITS ---
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
[2023-11-18] MEDS: FUROSEMIDE 40 MG/4 ML VIAL 80 MG IVP (17:14)
[2023-11-18 17:54] LABS: Bilirubin Urine NEGATIVE (NEGATIVE); Blood Urine NEGATIVE (NEGATIVE); Clarity Urine CLEAR (CLEAR); Color Urine LT. YELLOW (YELLOW); Glucose Urine UA NEGATIVE (NEGATIVE); Ketones Urine NEGATIVE (NEGATIVE); Leukocyte Esterase Urine NEGATIVE (NEGATIVE); Nitrite Urine NEGATIVE (NEGATIVE); Protein Urine TRACE mg/dL (NEG/TRACE); Urobilinogen Urine 0.2 EU/dL (0.2-1.0)
[2023-11-18 18:05] LABS: Urine Microscopic Indicated NO
--- NOTE | 2023-11-18 23:29 | W.PM.TELEPN ---
Progress Note: Subjective Subjective Interval history: Pt is a 73F with PMH of CHF on Home O2 briefly earlier this year, off since August who presented to the ED [facility] complaint of Lower extremity numbness which came on a few weeks ago. She states that the numbness begain in ther feet and then ascended to her stomach and is associated for the past two days with progressively worsening weakness of the lower extremities to the point where she is no longer able to lift her legs to climb srairs. She she was taken to CT scan, she noted severe 10/10 Lumbar spinal pain which is sharp, constant, nonradiating, with no relieving factos, exacerbated by movement. In the Ed, she was noted to be hypoxic but she denies any shortness of breath or chest pain. She was found to have a Hgb of 6.9. She does have a history of iron deficiency anemia and underwent EGD/C-scope in July which was unremarkable Exam Narrative Exam Narrative: General: Mild painful distress HEENT: NC/AT, EOMI, No nasal discharge Neck: FROM CV: RRR no murmur Pulm:CTA B/L GI: Nontender, nondistended Musculoskeletal: ROWELL, B/L LE 4/5, No edema Neuro: AAOx3 Psych: Calm, cooperative Constitutional Vital Signs, click to edit/add: Last Vital Signs Temp 99.0 F 11/18/23 23:19 Pulse 75 11/18/23 23:19 Resp 18 11/18/23 23:19 BP 128/68 11/18/23 23:19 Pulse Ox 92 L 11/18/23 23:19 O2 Del Method Nasal Cannula 11/18/23 23:19 O2 Flow Rate 2 11/18/23 23:19 Progress Note: Objective Labs Labs: Short CBC 11/18/23 Range/Units 16:04 WBC 3.6 L (4.0-11.0) 10^3/uL Hgb 6.9 L* (12.0-16.0) g/dL Hct 25.1 L (36.0-48.0) % Plt Count 254 (150-450) 10^3/uL BMP 11/18/23 16:04 Sodium 135 L Potassium 5.0 Chloride 99 Carbon Dioxide 31.4 BUN 42.0 H Creatinine 1.83 H Glucose 116 H Calcium 8.5 Liver Function 11/18/23 Range/Units 16:04 Total Bilirubin 0.6 (0.2-1.0) mg/dL AST 13 L (15-37) U/L ALT 8 L (14-59) U/L Alkaline Phosphatase 134 H (46-116) U/L Albumin 3.1 L (3.4-5.0) g/dL Urine 11/18/23 Range/Units 17:40 Urine Color Lt. yellow (YELLOW) Urine Clarity Clear (CLEAR) Urine pH 6.0 (5.0-9.0) Ur Specific [place] 1.010 (1.005-1.025) Urine Protein Trace (NEG/TRACE) mg/dL Urine Glucose (UA) Negative (NEGATIVE) mg/dL Progress Note: A&P Assessment and Plan (1) Hypoxia: Assessment and Plan: Secondary to Anemia, COPD(?) Pt has known iron deficienty Hgb 6.9 Management of anemia as below Continue supplemental oxygen Downtitrate as tolerated Home oxygen already in place Pt has known COPD, Former smoker with 20pack-years No sign of acute exacerbation Duonebs as needed (2) Neuropathy: Assessment and Plan: Unclear etiology Pt reports severe lumbar spine pain Follow up result of CT Scan Spine Gabapentin 100mg TID Monitor response (3) CHF (congestive heart failure): Assessment and Plan: No sign of acute exacerbation BNP is elevated, however, lungs are clear, no edema No shortness of breath No cough Continue supplemental oxygen as above Pt cannot recall specific meds Check with pharmacy in AM (4) Iron deficiency anemia: Assessment and Plan: Hgb 6.9 with hypoxia on arrival 2U pRBC ordered 1 Unit already given at the time of my exam Monitor response Continue iron supplement Telemedicine Attestation Telemedicine Attestation I conducted this encounter from [[place]] via secure live, [id number] video conference with the patient, located at [facility] with [nurse]. Prior to the interview, the risks and benefits of telemedicine were discussed with the patient and verbal consent was obtained.
[2023-11-19] VITALS (22 sets, daily range): BP systolic 105–131; BP diastolic 44–58; PULSE 62–103; RESP 16–20; TEMP 36.5–37.6; O2SAT 76–96
[2023-11-19] MEDS: ACETAMINOPHEN 325 MG TABLET 650 MG PO ×5 (00:39→23:44)
--- NOTE | 2023-11-19 01:49 | PC.NURSE ---
When rounding on the patient, RN found patient without her oxygen on. oxygen saturation was 74% on room air. Nasal cannula was placed back on the patient. Oxygen saturation came up to 90% on 3 liters
[2023-11-19] MEDS: IPRATROPIUM/ALBUTEROL SULFATE 3 ML AMPUL.NEB IH ×4 (04:15→20:07)
--- NOTE | 2023-11-19 04:15 | RESP.RT ---
decreased down to 2L
[2023-11-19] MEDS: HEPARIN SODIUM (PORCINE) 5,000 UNIT/ML VIAL 5000 UNIT SUBQ (05:39)
[2023-11-19] MEDS: GABAPENTIN 100 MG CAPSULE PO ×3 (05:39→22:11)
[2023-11-19 05:57] LABS: Basophils Percent Auto 0.9 % (0.2-2.0); Eosinophils Absolute Auto 0.1 10^3/uL (0.0-0.7); Hematocrit 26.4 % (36.0-48.0); Hemoglobin 7.7 g/dL (12.0-16.0); Immature Granulocytes Abs Auto 0.01 10^3/uL (0.00-0.03); Immature Granulocytes Pct Auto 0.3 % (0.0-0.5); Lymphocytes Absolute Auto 1.2 10^3/uL (1.2-3.8); Lymphocytes Percent Auto 37.2 % (20.5-60.0); Mean Corpuscular HGB Conc 29.2 g/dL (29.9-35.2); Mean Corpuscular Hemoglobin 26.6 pg (26.7-34.0); Mean Corpuscular Volume 91.3 fL (81.0-99.0); Mean Platelet Volume 9.4 fL (9.5-13.5); Monocytes Absolute Auto 0.6 10^3/uL (0.3-0.8); Monocytes Percent Auto 17.7 % (1.7-12.0); Neutrophils Absolute Auto 1.3 10^3/uL (1.4-6.5); Neutrophils Percent Auto 40.9 % (43.0-75.0); Platelet Count 192 10^3/uL (150-450); Red Blood Count 2.89 10^6/uL (4.20-5.40); Red Cell Distribution Width 16.4 % (11.0-15.0); White Blood Count 3.3 10^3/uL (4.0-11.0)
[2023-11-19 06:17] LABS: Chol HDL Ratio 3.1; Cholesterol 117 mg/dL (<=200); HDL Cholesterol 38 mg/dL (40-60); Magnesium 1.7 mg/dL (1.8-2.4); Triglycerides 64 mg/dL (<=150); VLDL CHOLESTEROL 12.8 mg/dL
[2023-11-19 06:20] LABS: Anion Gap 7.6; Calcium 8.3 mg/dL (8.5-10.1); Carbon Dioxide 30.7 mmol/L (21.0-32.0); Chloride 102 mmol/L (98-107); Estimated GFR (African America 33 (>=60); Estimated GFR (Non-African Ame 27 (>=60); Glucose 131 mg/dL (74-106); Potassium 4.3 mmol/L (3.5-5.1); Sodium 136 mmol/L (136-145)
[2023-11-19] MEDS: AMLODIPINE BESYLATE 5 MG TABLET PO (09:26)
[2023-11-19] MEDS: FERROUS SULFATE 325 MG TABLET PO (09:26)
[2023-11-19] MEDS: METOPROLOL TARTRATE 25 MG TABLET PO ×2 (09:26→22:12)
[2023-11-19] MEDS: PANTOPRAZOLE SODIUM 40 MG VIAL IV (11:47)
[2023-11-19] MEDS: FUROSEMIDE 40 MG/4 ML VIAL IVP (11:48)
--- NOTE | 2023-11-19 11:49 | CM.NOTE ---
Rounds made with Dr. Serna, discussed plan of care with pt. Pt to have MRI today, pt requesting sedation for MRI. Pt is claustrophobic and back pain. Dr. Serna discussed options with pt. Pt will attempt MRI with oral medication today.
[2023-11-19] MEDS: NON-FORMULARY 1 EACH (Buprenorphine-Naloxone 8-2 mg film) 1.5 EACH SL (14:13)
[2023-11-19 14:28] LABS: SARS-CoV-2 NAA NOT DETECTED (NOT DETECTE)
--- NOTE | 2023-11-19 16:16 | CM.NOTE ---
Discussed with pt about PT and OT recommendations regarding HH services. Pt refuses HH services, pt states she has plenty of assistance at the house.
--- NOTE | 2023-11-19 16:18 | CM.NOTE ---
Medicare Outpatient Observation Notice discussed with pt, pt verbalizes understanding and signs paper. Original given to pt and copy placed on pt's chart.
[2023-11-19 17:30] LABS: Hemoglobin 7.6 g/dL (12.0-16.0)
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
[2023-11-20] VITALS (25 sets, daily range): BP systolic 106–138; BP diastolic 51–76; PULSE 61–89; RESP 16–20; TEMP 36.7–36.9; O2SAT 90–95
[2023-11-20] MEDS: PANTOPRAZOLE SODIUM 40 MG VIAL IV ×2 (01:37→14:35)
[2023-11-20] MEDS: IPRATROPIUM/ALBUTEROL SULFATE 3 ML AMPUL.NEB IH ×4 (04:42→20:31)
[2023-11-20] MEDS: ACETAMINOPHEN 325 MG TABLET 650 MG PO ×4 (05:26→22:58)
[2023-11-20] MEDS: GABAPENTIN 100 MG CAPSULE PO ×3 (05:26→21:58)
[2023-11-20 06:13] LABS: Basophils Percent Auto 1.2 % (0.2-2.0); Eosinophils Absolute Auto 0.3 10^3/uL (0.0-0.7); Hematocrit 30.6 % (36.0-48.0); Hemoglobin 9.1 g/dL (12.0-16.0); Immature Granulocytes Abs Auto 0.02 10^3/uL (0.00-0.03); Immature Granulocytes Pct Auto 0.6 % (0.0-0.5); Lymphocytes Absolute Auto 0.8 10^3/uL (1.2-3.8); Lymphocytes Percent Auto 22.7 % (20.5-60.0); Mean Corpuscular HGB Conc 29.7 g/dL (29.9-35.2); Mean Corpuscular Hemoglobin 27.7 pg (26.7-34.0); Mean Platelet Volume 9.7 fL (9.5-13.5); Monocytes Absolute Auto 0.6 10^3/uL (0.3-0.8); Monocytes Percent Auto 16.5 % (1.7-12.0); Neutrophils Absolute Auto 1.7 10^3/uL (1.4-6.5); Platelet Count 214 10^3/uL (150-450); Red Blood Count 3.29 10^6/uL (4.20-5.40); Red Cell Distribution Width 15.9 % (11.0-15.0); White Blood Count 3.4 10^3/uL (4.0-11.0)
[2023-11-20 06:29] LABS: Alanine Aminotransferase 10 U/L (14-59); Albumin Globulin Ratio 0.7; Albumin Level 2.5 g/dL (3.4-5.0); Alkaline Phosphatase 112 U/L (46-116); Anion Gap 11.1; Aspartate Amino Transferase 17 U/L (15-37); BUN Creatinine Ratio 25.6; Bilirubin Total 0.6 mg/dL (0.2-1.0); Calcium 8.2 mg/dL (8.5-10.1); Carbon Dioxide 29.6 mmol/L (21.0-32.0); Chloride 103 mmol/L (98-107); Estimated GFR (African America 33 (>=60); Estimated GFR (Non-African Ame 28 (>=60); Globulin 3.6 g/dL; Glucose 95 mg/dL (74-106); Potassium 4.7 mmol/L (3.5-5.1); Sodium 139 mmol/L (136-145); Total Protein 6.1 g/dL (6.4-8.2)
--- NOTE | 2023-11-20 09:30 | PC.NURSE ---
PATIENT STATES THE FEELING IN THE LEGS BILATERAL UP TO THE HIPS ARE BETTER THAN YESTERDAY AND HER FEET ARE VERY TICKELISH.
--- NOTE | 2023-11-20 10:07 | PT.DAILY ---
Physical Therapy Daily Note PT Daily Note/Assess Start: 11/19/23 15:44 Freq: Status: Active Protocol: Document 11/20/23 10:03 CASSANDRA (Rec: 11/20/23 10:06 CASSANDRA [id number]) Physical Therapy Daily Note/Assessment Time In/Time Out Time In 09:35 Time Out 09:50 Pain In Pain N/A Pain Out Pain N/A Subjective Subjective Pt supine upon arrival. Agrees to PT. On 4L O2 94% prior to session. Therapeutic Exercise Time Therapeutic Exercise Minutes (minutes) 3 Therapeutic Exercise Units 0 Therapeutic Exercise Treatment Therapeutic Exercise Treatment Pt performs seated LAQ, marches and AP while sitting EOB 10x ea prior to gait. Therapeutic Activity Time Therapeutic Activity Minutes (minutes) 8 Therapeutic Activity Units 1 Therapeutic Activity Treatment Bed Mobility Ability Minimum Assist Chair Transfer Ability Contact Guard Assist Therapeutic Activity Comments Supine>sit Lebron for bilat LEs - increased time needed. Seated ex complete while sitting EOB without LOB. Sit> stand to RW CGA for safety. Pt amb 80' RW, SBA in room with assist for O2 lines on turns. Spo2 checked once sitting 86%. Pt then requires Lebron to advance LEs back into bed for sit>supine transfer. Remains supine with call light in reach and needs met. Total Physical Therapy Time Total Therapy Minutes 11 Total Physical Therapy Units 1 Summary Daily Note Summary Spo2 does drop with activity. Improved gait endurance and transfer ability today.
[2023-11-20] MEDS: METOPROLOL TARTRATE 25 MG TABLET PO ×2 (10:17→21:58)
[2023-11-20] MEDS: AMLODIPINE BESYLATE 5 MG TABLET PO (10:17)
[2023-11-20] MEDS: FERROUS SULFATE 325 MG TABLET PO (10:18)
--- NOTE | 2023-11-20 11:13 | PM.GSCN ---
History of Present Illness Consult details Consult date: 11/20/23 Reason for consult: other (chronic anemia) Narrative: Kusum Huerta is a 73-year-old female who presented to the hospital with acute shorrtness of breath and was found to be severely anemic with a hemoglobin of less than 7 g. She denies any rectal bleeding melena hematochezia abdominal pain nausea vomiting hematemesis. She had a previous workup in July [address] Allen one of my colleagues and had negative upper and lower endoscopy. I was asked to consult due to the anemia.She has not seen a home health occupational therapist since the late when they thought she might have had a leukemia.She does not currently have a PCP. Her previous family physician Dr. Reynolds in [place] fired her from his practice due to failed visits. She is now looking for a new PCP. She has received three units of packed red blood cells since being admitted to this hospital. Her hemoglobin this morning is over 9 g. She denies any further shortness of breath. She did see a neurologist in [place] within the last few weeks due to numbness from the waist down to her feet which is new and he has ordered an MRI and will possibly be performing a future spinal tap if needed. Review of Systems ROS Status of ROS 10 or more systems reviewed and unremarkable except as noted in history and below Cardiovascular Reports: lightheadedness and shortness of breath with exertion Respiratory Reports: shortness of breath Musculoskeletal Reports: back pain Neurological Reports: numbness in extremities and weakness in extremities [facility] Medical History (Updated 11/19/23 @ 19:49 by Shaikh Daphne MD) Opioid use disorder in remission ?F11.91 - Opioid use, unspecified, in remission (ICD-10) CKD (chronic kidney disease) stage 3, GFR 30-59 ml/min ?N18.30 - Chronic kidney disease, stage 3 unspecified (ICD-10) Chronic respiratory failure with hypoxia ?J96.11 - Chronic respiratory failure with hypoxia (ICD-10) COPD (chronic obstructive pulmonary disease) ?J44.9 - Chronic obstructive pulmonary disease, unspecified (ICD-10) CAD (coronary atherosclerotic disease) ?I25.10 - Atherosclerotic heart disease of [place] coronary artery without angina pectoris (ICD-10) Melanoma ?C43.9 - Malignant melanoma of skin, unspecified (ICD-10) History of illicit drug use ?F19.91 - Other psychoactive substance use, unspecified, in remission (ICD-10) Hypertension ?I10 - Essential (primary) hypertension (ICD-10) Kidney disease ?N28.9 - Disorder of kidney and ureter, unspecified (ICD-10) CHF (congestive heart failure) ?I50.9 - Heart failure, unspecified (ICD-10) Heart attack ?I21.9 - Acute myocardial infarction, unspecified (ICD-10) Anemia ?D64.9 - Anemia, unspecified (ICD-10) Anemia ?D64.9 - Anemia, unspecified (ICD-10) Surgical History H/O: hysterectomy ?Z90.710 - Acquired absence of both cervix and uterus (ICD-10) History of cholecystectomy ?Z90.49 - Acquired absence of other specified parts of digestive tract (ICD-10) History of total left knee replacement ?Z96.652 - Presence of left artificial knee joint (ICD-10) Hx of appendectomy ?Z90.49 - Acquired absence of other specified parts of digestive tract (ICD-10) History of heart artery stent ?Z95.5 - Presence of coronary angioplasty implant and graft (ICD-10) Family History Father Family history of CHF (congestive heart failure) Family history of diabetes mellitus Family history of hypertension Sister Family history of myocardial infarction Family history of hypertension Mother Family history of COPD (chronic obstructive pulmonary disease) Family history of hypertension Daughter Family history of diabetes mellitus Social History Within the past year, how often did you have a drink containing alcohol: never Within the past year, how many standard drinks containing alcohol did you have on a typical day: 1 or 2 Within the past year, how often did you have six or more drinks on one occasion: never Total score: 0 Score interpretation: A score less than 3 is consistent with normal alcohol consumption. Smoking status: Never smoker Non-prescribed substance use: former substance user, amphetamines/methamphetamines and opiods/painkillers Non-prescribed substance use details: states has been clean for 6 months Previous occupational history: Retired Known occupational exposures/hazards: No Highest level of school completed/degree received: high school graduate Are you now , , , , never or living with a partner: In a typical week, how many times do you talk on the telephone with family, friends, or neighbors: 3 or more times per week How often do you get together with friends or relatives: 3 or more times per week How often do you attend orthodox or latter-day services: never Do you belong to any clubs or organizations such as orthodox groups unions, [employer] or athletic groups, or school groups: no Total score: 1 Score interpretation: A score of less than or equal to 1 indicates the most socially isolated. Little interest or pleasure in doing things: not at all Feeling down, depressed, or hopeless: not at all Feel stressed/tense/nervous/anxious/difficulty sleeping: not at all Gender Identity: female Meds Home Medications and Allergies Home Medications Medication Instructions Recorded Confirmed Type buprenorphine 8 mg-naloxone 2 mg 1.5 film sublingual Q24H 08/15/23 11/18/23 History sublingual film clopidogrel 75 mg tablet 75 mg PO DAILY 08/15/23 11/18/23 History metoprolol tartrate 25 mg tablet 25 mg PO Q12H 08/15/23 11/18/23 History naloxone 4 mg/actuation nasal 1 spray intranasal Q3M PRN opioid 08/15/23 11/18/23 History spray (Narcan) overdose valsartan 80 mg tablet 80 mg PO DAILY 08/15/23 11/18/23 History ferrous sulfate 325 mg (65 mg 325 mg PO DAILY 30 days #30 tabs 08/18/23 11/18/23 Rx iron) tablet (Iron (ferrous sulfate)) spironolactone 25 mg tablet 25 mg PO QD 30 days #30 tabs 08/18/23 11/18/23 Rx amlodipine 5 mg tablet 5 mg PO DAILY 11/18/23 11/18/23 History furosemide 20 mg tablet 20 mg PO DAILY 11/18/23 11/18/23 History prasugrel 10 mg tablet 10 mg PO DAILY 11/18/23 11/18/23 History Allergies Allergy/AdvReac Type Severity Reaction Status Date / Time No Known Drug Allergies Allergy Verified 08/15/23 12:42 Exam Constitutional Vital Signs, click to edit/add: Last Vital Signs Temp 98.0 F 11/20/23 05:28 Pulse 81 11/20/23 10:04 Resp 16 11/20/23 05:28 BP 111/69 11/20/23 10:17 Pulse Ox 94 L 11/20/23 05:28 O2 Del Method Nasal Cannula 11/20/23 05:28 O2 Flow Rate 2 11/20/23 05:28 Respiratory Common normals: clear to auscultation bilaterally Cardio Common normals: regular rate GI Common normals: Normal to inspection, nondistended, normoactive bowel sounds present, soft to palpation, non-tender and no hepatosplenomegaly Palpation: soft Neuro Common normals: oriented x3 and moves all extremities Results Labs Labs: Abnormal lab results 11/18/23 11/19/23 11/20/23 Range/Units 16:44 16:56 05:39 WBC 3.4 L (4.0-11.0) 10^3/uL RBC 3.29 L (4.20-5.40) 10^6/uL Hgb 7.6 L 9.1 L (12.0-16.0) g/dL Hct 30.6 L (36.0-48.0) % MCHC 29.7 L (29.9-35.2) g/dL RDW 15.9 H (11.0-15.0) % [place] % (Auto) 16.5 H (1.7-12.0) % Eos % (Auto) 10.0 H (0.9-7.0) % Lymph # (Auto) 0.8 L (1.2-3.8) 10^3/uL Imm/Tot Granulo (auto) 0.6 H (0.0-0.5) % BUN 46.0 H (7.0-18.0) mg/dL Creatinine 1.80 H (0.55-1.02) mg/dL Est GFR ( Amer) 33 L (>=60) Est GFR (Non-Af Amer) 28 L (>=60) Calcium 8.2 L (8.5-10.1) mg/dL ALT 10 L (14-59) U/L Total Protein 6.1 L (6.4-8.2) g/dL Albumin 2.5 L (3.4-5.0) g/dL Crossmatch See Detail Diabetes panel 12/29/23 Range/Units 05:39 Sodium 139 (136-145) mmol/L Potassium 4.7 (3.5-5.1) mmol/L Chloride 103 (98-107) mmol/L Carbon Dioxide 29.6 (21.0-32.0) mmol/L BUN 46.0 H (7.0-18.0) mg/dL Creatinine 1.80 H (0.55-1.02) mg/dL Glucose 95 (74-106) mg/dL Calcium 8.2 L (8.5-10.1) mg/dL AST 17 (15-37) U/L ALT 10 L (14-59) U/L Alkaline Phosphatase 112 (46-116) U/L Total Protein 6.1 L (6.4-8.2) g/dL Albumin 2.5 L (3.4-5.0) g/dL Calcium panel 11/20/23 Range/Units 05:39 Calcium 8.2 L (8.5-10.1) mg/dL Albumin 2.5 L (3.4-5.0) g/dL Pituitary panel 11/20/23 Range/Units 05:39 Sodium 139 (136-145) mmol/L Potassium 4.7 (3.5-5.1) mmol/L Chloride 103 (98-107) mmol/L Carbon Dioxide 29.6 (21.0-32.0) mmol/L BUN 46.0 H (7.0-18.0) mg/dL Creatinine 1.80 H (0.55-1.02) mg/dL Glucose 95 (74-106) mg/dL Calcium 8.2 L (8.5-10.1) mg/dL Adrenal panel 11/20/23 Range/Units 05:39 Sodium 139 (136-145) mmol/L Potassium 4.7 (3.5-5.1) mmol/L Chloride 103 (98-107) mmol/L Carbon Dioxide 29.6 (21.0-32.0) mmol/L BUN 46.0 H (7.0-18.0) mg/dL Creatinine 1.80 H (0.55-1.02) mg/dL Glucose 95 (74-106) mg/dL Calcium 8.2 L (8.5-10.1) mg/dL Total Bilirubin 0.6 (0.2-1.0) mg/dL AST 17 (15-37) U/L ALT 10 L (14-59) U/L Alkaline Phosphatase 112 (46-116) U/L Total Protein 6.1 L (6.4-8.2) g/dL Albumin 2.5 L (3.4-5.0) g/dL All other labs normal. Assessment and Plan Assessment and Plan (1) Iron deficiency anemia: Qualifiers: Iron deficiency anemia type: chronic blood loss Qualified Code(s): D50.0 - Iron deficiency anemia secondary to blood loss (chronic) (2) AIDP (acute inflammatory demyelinating polyneuropathy): (3) Acute on chronic diastolic heart failure: (4) SHANKAR (acute kidney injury): (5) Chronic respiratory failure with hypoxia: (6) CAD (coronary atherosclerotic disease): Qualifiers: Associated angina: without angina Coronary Disease-Associated Artery/Lesion type: [place] artery [place] vs. transplanted heart: [place] heart Qualified Code(s): I25.10 - Atherosclerotic heart disease of [place] coronary artery without angina pectoris (7) COPD (chronic obstructive pulmonary disease): (8) Hypertension: Qualifiers: Hypertension type: primary hypertension Qualified Code(s): I10 - Essential (primary) hypertension (9) CKD (chronic kidney disease) stage 3, GFR 30-59 ml/min: (10) Opioid use disorder in remission: Plan Patient had EGD and colonoscopy by surgery in July 2023 and both scopes were negative. Recommend patient see hematology for possible bone marrow aspiration for further workup for her anemia.patient was given the names of [facility], and [facility] and she wants to go to [facility] in [place]. I have asked nursing to give her the phone number for [facility] so she can schedule an appointment.she is also seeking a new PCP since she was dismissed from her previous one. No surgical intervention is needed. I will sign off the case.
--- NOTE | 2023-11-20 11:59 | CM.NOTE ---
Rounding with Dr. Serna. Pt. is on nasal cannula oxygen at this time. Pt. voicing improvement of symptoms. Discussed possible transfer to [facility] accepted and waiting on available bed. Pt. in agreement with this plan.
[2023-11-20] MEDS: IRON SUCROSE COMPLEX 200 MG in 0.9 % SODIUM CHLORIDE 100 ML 220 MG IV (14:32)
[2023-11-20] MEDS: FUROSEMIDE 40 MG/4 ML VIAL IVP (14:35)
--- NOTE | 2023-11-20 14:47 | PM.IMPN1 ---
Progress Note: A&P Assessment and Plan (1) AIDP (acute inflammatory demyelinating polyneuropathy): Assessment and Plan: Acute onset, ascending neurological symptoms - started with numbness, now experiencing motor symptoms/weakness in LE along with tingling/numbness in UE. Progressive symptoms and at high risk of progression that could involve respiratory muscles leading to respiratory compromise and hence needs close monitoring and inpatient management to ensure close monitoring. Neurology consulted and recommended MRI cervical,thoracic and lumbar spine with/w/o contrast to confirm the diagnosis. Patient is extremely claustrophobic and adamantly refused to even try and get and MRI of her spine. She will need sedation for MRI and we are unable to offer this to her at our facility. She will also need IVIG and close neurological monitoring and requires higher level of care. Patient accepted for transfer to [facility] for continued care but might stay for a day or two based on availability of beds. Neuro checks q4H (2) Iron deficiency anemia: Assessment and Plan: Likely from chronic GI blood loss. She was discharged with Hb of 8 in 08/15 Presented with Hb of 6.9 Received 3 units PRBC in total. Started on protonix 40 q12. Hold ASA, plavix. Gen surgery recommends monitoring and no need for endoscopic eval for now. No overt GI bleeding. One dose of IV iron ordered. Qualifiers: Iron deficiency anemia type: chronic blood loss Qualified Code(s): D50.0 - Iron deficiency anemia secondary to blood loss (chronic) (3) Acute on chronic diastolic heart failure: Assessment and Plan: Volume overload on exam. Started on lasix 40 q12. Monitor UO, Intake/output (4) SHANKAR (acute kidney injury): Assessment and Plan: likely cardiorenal. increase lasix to 40 q12. Monitor UO, cr closely. (5) Chronic respiratory failure with hypoxia: Assessment and Plan: due to COPD. At baseline. Monitor. (6) CAD (coronary atherosclerotic disease): Assessment and Plan: Stable. ASA, plavix on hold for now. Last PCI 03/15 -plan to hold plavix on discharge with final decision to resume/discontine deferred to her outpatient flanging roll operator. Qualifiers: Coronary Disease-Associated Artery/Lesion type: [place] artery [place] vs. transplanted heart: [place] heart Associated angina: without angina Qualified Code(s): I25.10 - Atherosclerotic heart disease of [place] coronary artery without angina pectoris (7) COPD (chronic obstructive pulmonary disease): Assessment and Plan: Wheezing on exam today with prolonged exp phase. Started on duonebs. Avoid steroids due to acute CHF and GI blood loss. Qualifiers: COPD type: COPD with acute exacerbation Qualified Code(s): J44.1 - Chronic obstructive pulmonary disease with (acute) exacerbation (8) Hypertension: Assessment and Plan: C/w home meds Qualifiers: Hypertension type: primary hypertension Qualified Code(s): I10 - Essential (primary) hypertension (9) CKD (chronic kidney disease) stage 3, GFR 30-59 ml/min: Assessment and Plan: Monitor Cr. (10) Opioid use disorder in remission: Assessment and Plan: On suboxone. In remission. Abused prescription narcotics. Plan Awaiting bed at [facility] Internal Medicine - PN: Subj Subjective Interval history: Seen and examined. No events. Stable. Hb stable. Stable O2 requirement. Exam Constitutional Vital Signs, click to edit/add: Last Vital Signs Temp 98.0 F 11/20/23 05:28 Pulse 83 11/20/23 14:03 Resp 16 11/20/23 05:28 BP 111/69 11/20/23 10:17 Pulse Ox 90 L 11/20/23 11:32 O2 Del Method Room Air 11/20/23 11:32 O2 Flow Rate 2 11/20/23 11:32 Documenting provider has reviewed patient's vital signs: yes Common normals: no apparent distress General appearance: cooperative and comfortable Nutritional appearance: obese HENMT Common normals: normocephalic and head/scalp atraumatic Respiratory Common normals: normal respiratory effort and no use of accessory muscles Effort & inspection: able to speak in complete sentences Auscultation: crackles and wheezes Cardio Common normals: no JVD, regular rate, S1 normal heart sound and S2 normal heart sound Heart sounds: S1 normal and S2 normal GI Common normals: Normal to inspection, nondistended, normoactive bowel sounds present, non-tender and no hepatosplenomegaly Back & Pelvis Common normals: no CVA tenderness, thoracic and lumbar spine normal to inspection, no thoracic nor lumbar tenderness and thoraco-lumbar ROM normal Extremity Common normals: no clubbing, cyanosis or edema Neuro Common normals: oriented x3, CN's II-XII intact bilaterally and moves all extremities Sensory exam: extremities bilateral lower entire pin-prick: absent and light-touch: decreased and sensory level loss detected Location: T10 Motor exam: no pronator drift, no tremor noted, no asterixis, no fasciculations, muscle tone normal throughout and strength abnormal Coordination: [id number] test normal Psych Common normals: mental status grossly normal, thought process normal, denies hallucinations and denies homicidal ideation Internal Medicine - PN: Obj Da Labs Labs: Laboratory Results - last 24 hr 11/18/23 11/19/23 11/20/23 16:44 16:56 05:39 WBC 3.4 L RBC 3.29 L Hgb 7.6 L 9.1 L Hct 30.6 L MCV 93.0 MCH 27.7 MCHC 29.7 L RDW 15.9 H Plt Count 214 MPV 9.7 Neut % (Auto) 49.0 Lymph % (Auto) 22.7 [place] % (Auto) 16.5 H Eos % (Auto) 10.0 H Baso % (Auto) 1.2 Neut # (Auto) 1.7 Lymph # (Auto) 0.8 L [place] # (Auto) 0.6 Eos # (Auto) 0.3 Baso # (Auto) 0.0 Abs Immat Gran (auto) 0.02 Imm/Tot Granulo (auto) 0.6 H Sodium 139 Potassium 4.7 Chloride 103 Carbon Dioxide 29.6 Anion Gap 11.1 BUN 46.0 H Creatinine 1.80 H Est GFR ( Amer) 33 L Est GFR (Non-Af Amer) 28 L BUN/Creatinine Ratio 25.6 Glucose 95 Calcium 8.2 L Total Bilirubin 0.6 AST 17 ALT 10 L Alkaline Phosphatase 112 Total Protein 6.1 L Albumin 2.5 L Globulin 3.6 Albumin/Globulin Ratio 0.7 Blood Type A Positive Antibody Screen Negative Crossmatch See Detail Urinary Catheter Management Urinary Catheter Management Urethral: Cath placed during this visit: yes Urethral indwelling: No Insertion date: 11/18/23 Insertion time: 17:20
[2023-11-20] MEDS: NON-FORMULARY 1 EACH (Buprenorphine-Naloxone 8-2 mg film) 1.5 EACH SL (14:57)
--- NOTE | 2023-11-20 15:47 | RESP.RT ---
titrated down to 2L
[2023-11-20] MEDS: SENNOSIDES 8.6 MG TABLET PO (16:12)
[2023-11-21] VITALS (21 sets, daily range): BP systolic 125–158; BP diastolic 64–75; PULSE 64–94; RESP 16–20; TEMP 36.4–36.6; O2SAT 92–94
[2023-11-21] MEDS: FUROSEMIDE 40 MG/4 ML VIAL IVP ×2 (00:56→13:43)
[2023-11-21] MEDS: PANTOPRAZOLE SODIUM 40 MG VIAL IV ×2 (00:56→13:43)
[2023-11-21] MEDS: IPRATROPIUM/ALBUTEROL SULFATE 3 ML AMPUL.NEB IH ×4 (04:44→20:03)
[2023-11-21 05:23] LABS: Basophils Percent Auto 1.2 % (0.2-2.0); Eosinophils Absolute Auto 0.4 10^3/uL (0.0-0.7); Eosinophils Percent Auto 11.3 % (0.9-7.0); Hematocrit 31.7 % (36.0-48.0); Hemoglobin 9.4 g/dL (12.0-16.0); Immature Granulocytes Abs Auto 0.01 10^3/uL (0.00-0.03); Immature Granulocytes Pct Auto 0.3 % (0.0-0.5); Lymphocytes Absolute Auto 0.9 10^3/uL (1.2-3.8); Lymphocytes Percent Auto 25.8 % (20.5-60.0); Mean Corpuscular HGB Conc 29.7 g/dL (29.9-35.2); Mean Corpuscular Hemoglobin 27.4 pg (26.7-34.0); Mean Corpuscular Volume 92.4 fL (81.0-99.0); Mean Platelet Volume 9.3 fL (9.5-13.5); Monocytes Absolute Auto 0.6 10^3/uL (0.3-0.8); Neutrophils Absolute Auto 1.5 10^3/uL (1.4-6.5); Neutrophils Percent Auto 43.4 % (43.0-75.0); Platelet Count 210 10^3/uL (150-450); Red Blood Count 3.43 10^6/uL (4.20-5.40); White Blood Count 3.5 10^3/uL (4.0-11.0)
[2023-11-21] MEDS: GABAPENTIN 100 MG CAPSULE PO ×3 (05:40→23:18)
[2023-11-21 05:41] LABS: Alanine Aminotransferase 14 U/L (14-59); Albumin Globulin Ratio 0.7; Albumin Level 2.5 g/dL (3.4-5.0); Alkaline Phosphatase 114 U/L (46-116); Anion Gap 10.9; Aspartate Amino Transferase 11 U/L (15-37); BUN Creatinine Ratio 26.5; Bilirubin Total 0.5 mg/dL (0.2-1.0); Calcium 8.7 mg/dL (8.5-10.1); Carbon Dioxide 30.7 mmol/L (21.0-32.0); Chloride 101 mmol/L (98-107); Estimated GFR (African America 36 (>=60); Estimated GFR (Non-African Ame 29 (>=60); Globulin 3.7 g/dL; Glucose 98 mg/dL (74-106); Potassium 4.6 mmol/L (3.5-5.1); Sodium 138 mmol/L (136-145); Total Protein 6.2 g/dL (6.4-8.2)
[2023-11-21] MEDS: FERROUS SULFATE 325 MG TABLET PO (08:23)
[2023-11-21] MEDS: METOPROLOL TARTRATE 25 MG TABLET PO ×2 (08:23→23:18)
[2023-11-21] MEDS: POLYETHYLENE GLYCOL 3350 17 GM POWDER PACKET PO (08:23)
[2023-11-21] MEDS: AMLODIPINE BESYLATE 5 MG TABLET PO (08:23)
[2023-11-21] MEDS: ACETAMINOPHEN 325 MG TABLET 650 MG PO (08:23)
--- NOTE | 2023-11-21 09:54 | REH.PTDLY ---
Physical Therapy Daily Note PT Daily Note/Assess Start: 11/19/23 15:44 Freq: Status: Active Protocol: Document 11/21/23 08:55 GARRET (Rec: 11/21/23 09:54 GARRET [id number]) Physical Therapy Daily Note/Assessment Time In 08:42 Time Out 08:54 Subjective Pt reports 'I'm still having the tingling sensations in legs, reporting L side is worse than R. If I could just go to the bathroom I would probably feel a lot better.' Still waiting on bed for transfer. Pt still on 4 L O2. Therapeutic Exercise Minutes (minutes) 7 Therapeutic Exercise Units 1 Therapeutic Exercise Treatment Instructed in B LE AP and quad sets in supine 10x ea. Pt is unable to perform SLR on either side, able to lift calf off bed on R, but not on L. Once seated instructed in B LE LAQ, marching, hip abd, and hip add squeeze 10x ea for improved strength. Therapeutic Activity Minutes (minutes) 5 Therapeutic Activity Units 0 Bed Mobility Ability Minimum Assist Chair Transfer Ability Contact Guard Assist Therapeutic Activity Comments Pt requires Min A for supine < > sit transfers. Sit to stand CGA with bed slightly elevated . Gait training with RW, however pt struggles to lift legs this morning, does better with R. Struggles to lift L LE and therefor pt only takes 2 steps and reports she does not feel safe to go further, cues for pt to step retro and then to the side to get to HOB CGA for safety. Needs assistance lifting legs into bed post rx. Total Therapy Minutes 12 Total Physical Therapy Units 1 Daily Note Summary Pt does not do as well today with ambulation due to leg weakness this morning. Unable to ambulate like she had previous date. L LE is weaker compared to R and needs assistance with legs with supine to and from sit transfers.
--- NOTE | 2023-11-21 11:32 | PC.NURSE ---
sherif wayne with [facility] called and recieved update on pt. updated dr ozuna at this time.
[2023-11-21] MEDS: NON-FORMULARY 1 EACH (Buprenorphine-Naloxone 8-2 mg film) 1.5 EACH SL (14:19)
[2023-11-21] MEDS: METHYLPREDNISOLONE SOD SUCC PF 125 MG/2 ML VIAL 60 MG IVP (15:41)
--- NOTE | 2023-11-21 18:08 | PM.PN ---
Progress Note: Subjective Subjective Interval history: Patient feels better this am. Reports able to move feet better. Continues to have numbness in feet and hands. Worked with PT and able to move side to side but problems walking forward. Mild pain. Normal appetite and no emesis or diarrhea. No chest pain or palpitations. No SOB or cough. Exam Constitutional Vital Signs, click to edit/add: Last Vital Signs Temp 97.8 F 11/21/23 14:22 Pulse 86 11/21/23 17:29 Resp 16 11/21/23 14:22 BP 132/75 11/21/23 14:22 Pulse Ox 94 L 11/21/23 14:22 O2 Del Method Room Air 11/21/23 14:22 O2 Flow Rate 2 11/21/23 10:46 Documenting provider has reviewed patient's vital signs: yes Common normals: no apparent distress, oriented x3 and alert HENMT Common normals: normocephalic Eye Common normals: PERRL and EOMs intact bilaterally Respiratory Common normals: normal respiratory effort and clear to auscultation bilaterally Cardio Common normals: regular rate, regular rhythm, no gallops, no murmurs and no rub GI Common normals: Normal to inspection, nondistended, normoactive bowel sounds present and non-tender Extremity Common normals: no pedal edema Neuro Motor exam: other (Normal strength bilateral ankles, normal clinical nutrition manager bilaterally) Progress Note: Objective Labs Labs: Short CBC 11/21/23 Range/Units 05:14 WBC 3.5 L (4.0-11.0) 10^3/uL Hgb 9.4 L (12.0-16.0) g/dL Hct 31.7 L (36.0-48.0) % Plt Count 210 (150-450) 10^3/uL BMP 11/21/23 05:14 Sodium 138 Potassium 4.6 Chloride 101 Carbon Dioxide 30.7 BUN 45.0 H Creatinine 1.70 H Glucose 98 Calcium 8.7 Liver Function 11/21/23 Range/Units 05:14 Total Bilirubin 0.5 (0.2-1.0) mg/dL AST 11 L (15-37) U/L ALT 14 (14-59) U/L Alkaline Phosphatase 114 (46-116) U/L Albumin 2.5 L (3.4-5.0) g/dL Progress Note: A&P Assessment and Plan (1) AIDP (acute inflammatory demyelinating polyneuropathy): (2) Lumbar degenerative disc disease: (3) Hypertension: Qualifiers: Hypertension type: primary hypertension Qualified Code(s): I10 - Essential (primary) hypertension (4) Iron deficiency anemia: Qualifiers: Iron deficiency anemia type: chronic blood loss Qualified Code(s): D50.0 - Iron deficiency anemia secondary to blood loss (chronic) (5) COPD (chronic obstructive pulmonary disease): Qualifiers: COPD type: COPD with acute exacerbation Qualified Code(s): J44.1 - Chronic obstructive pulmonary disease with (acute) exacerbation (6) SHANKAR (acute kidney injury): (7) CAD (coronary atherosclerotic disease): Qualifiers: Coronary Disease-Associated Artery/Lesion type: [place] artery [place] vs. transplanted heart: [place] heart Associated angina: without angina Qualified Code(s): I25.10 - Atherosclerotic heart disease of [place] coronary artery without angina pectoris (8) Acute on chronic diastolic heart failure: (9) Stage 3a chronic kidney disease (CKD): (10) Hypoxia: (11) Opioid use disorder in remission: Plan Patient with continued numbness but strength improved. Able to stand and walk with PT. Normal strength bilateral ankles. Possibly related to severe DDD. Add solu-medrol. Continue IV lasix. Awaiting bed for transfer. Urinary Catheter Management Urinary Catheter Management Urethral: Cath placed during this visit: yes Urethral indwelling: No Insertion date: 11/18/23 Insertion time: 17:20
[2023-11-22] VITALS (22 sets, daily range): BP systolic 134–160; BP diastolic 64–81; PULSE 71–96; RESP 16–20; TEMP 36.5–36.8; O2SAT 87–96
[2023-11-22] MEDS: PANTOPRAZOLE SODIUM 40 MG VIAL IV ×2 (00:30→12:26)
[2023-11-22] MEDS: METHYLPREDNISOLONE SOD SUCC PF 125 MG/2 ML VIAL 60 MG IVP ×5 (00:30→21:56)
[2023-11-22] MEDS: FUROSEMIDE 40 MG/4 ML VIAL IVP ×2 (01:22→12:26)
[2023-11-22] MEDS: IPRATROPIUM/ALBUTEROL SULFATE 3 ML AMPUL.NEB IH ×4 (04:10→20:09)
[2023-11-22 05:59] LABS: Hematocrit 34.3 % (36.0-48.0); Hemoglobin 10.3 g/dL (12.0-16.0); Mean Platelet Volume 8.9 fL (9.5-13.5); Platelet Count 254 10^3/uL (150-450); Red Blood Count 3.81 10^6/uL (4.20-5.40); Red Cell Distribution Width 15.7 % (11.0-15.0); White Blood Count 1.5 10^3/uL (4.0-11.0)
[2023-11-22] MEDS: GABAPENTIN 100 MG CAPSULE PO ×3 (06:17→21:57)
[2023-11-22 06:22] LABS: Alanine Aminotransferase 8 U/L (14-59); Albumin Globulin Ratio 0.6; Albumin Level 2.6 g/dL (3.4-5.0); Alkaline Phosphatase 129 U/L (46-116); Anion Gap 12.5; Aspartate Amino Transferase 11 U/L (15-37); BUN Creatinine Ratio 32.5; Bilirubin Total 0.5 mg/dL (0.2-1.0); Calcium 9.2 mg/dL (8.5-10.1); Carbon Dioxide 28.5 mmol/L (21.0-32.0); Chloride 99 mmol/L (98-107); Estimated GFR (African America 40 (>=60); Estimated GFR (Non-African Ame 33 (>=60); Globulin 4.2 g/dL; Glucose 175 mg/dL (74-106); Sodium 135 mmol/L (136-145); Total Protein 6.8 g/dL (6.4-8.2)
[2023-11-22 06:24] LABS: Anisocytosis 3+; Hypochromasia 3+; Lymphocytes Absolute Manual 0.15 10^3/uL (1.20-3.80); Monocytes Absolute Manual 0.07 10^3/uL (0.30-0.80); Poikilocytosis 3+; Segmented Neut Absolute Manual 1.27 10^3/uL (1.4-6.5)
[2023-11-22] MEDS: FERROUS SULFATE 325 MG TABLET PO (09:22)
[2023-11-22] MEDS: METOPROLOL TARTRATE 25 MG TABLET PO ×2 (09:22→21:56)
[2023-11-22] MEDS: AMLODIPINE BESYLATE 5 MG TABLET PO (09:22)
[2023-11-22] MEDS: NON-FORMULARY 1 EACH (Buprenorphine-Naloxone 8-2 mg film) 1.5 EACH SL (09:31)
--- NOTE | 2023-11-22 16:34 | PM.PN ---
Progress Note: Subjective Subjective Interval history: Patient much improved after starting steroids yesterday. Able to move legs and lift legs off bed. No further numbness and tingling much improved. Mild pain in back. Able to get out of bed and walk well around room. Normal appetite and no emesis or diarrhea. No chest pain or palpitations. No SOB or cough. Exam Constitutional Vital Signs, click to edit/add: Last Vital Signs Temp 98.1 F 11/22/23 14:43 Pulse 81 11/22/23 15:54 Resp 18 11/22/23 14:43 BP 134/64 11/22/23 14:43 Pulse Ox 96 11/22/23 15:52 O2 Del Method Nasal Cannula 11/22/23 15:52 O2 Flow Rate 2 11/22/23 15:52 Documenting provider has reviewed patient's vital signs: yes Common normals: no apparent distress, oriented x3 and alert HENMT Common normals: normocephalic Eye Common normals: PERRL and EOMs intact bilaterally Respiratory Common normals: normal respiratory effort and clear to auscultation bilaterally Cardio Common normals: regular rate, regular rhythm, no gallops, no murmurs and no rub GI Common normals: Normal to inspection, nondistended, normoactive bowel sounds present and non-tender Extremity Common normals: no pedal edema Progress Note: Objective Labs Labs: Short CBC 11/22/23 Range/Units 05:46 WBC 1.5 L (4.0-11.0) 10^3/uL Hgb 10.3 L (12.0-16.0) g/dL Hct 34.3 L (36.0-48.0) % Plt Count 254 (150-450) 10^3/uL BMP 11/22/23 05:46 Sodium 135 L Potassium 5.0 Chloride 99 Carbon Dioxide 28.5 BUN 50.0 H Creatinine 1.54 H Glucose 175 H Calcium 9.2 Liver Function 11/22/23 Range/Units 05:46 Total Bilirubin 0.5 (0.2-1.0) mg/dL AST 11 L (15-37) U/L ALT 8 L (14-59) U/L Alkaline Phosphatase 129 H (46-116) U/L Albumin 2.6 L (3.4-5.0) g/dL Progress Note: A&P Assessment and Plan (1) AIDP (acute inflammatory demyelinating polyneuropathy): (2) Lumbar degenerative disc disease: (3) Hypertension: Qualifiers: Hypertension type: primary hypertension Qualified Code(s): I10 - Essential (primary) hypertension (4) Iron deficiency anemia: Qualifiers: Iron deficiency anemia type: chronic blood loss Qualified Code(s): D50.0 - Iron deficiency anemia secondary to blood loss (chronic) (5) COPD (chronic obstructive pulmonary disease): Qualifiers: COPD type: COPD with acute exacerbation Qualified Code(s): J44.1 - Chronic obstructive pulmonary disease with (acute) exacerbation (6) SHANKAR (acute kidney injury): (7) CAD (coronary atherosclerotic disease): Qualifiers: Coronary Disease-Associated Artery/Lesion type: [place] artery [place] vs. transplanted heart: [place] heart Associated angina: without angina Qualified Code(s): I25.10 - Atherosclerotic heart disease of [place] coronary artery without angina pectoris (8) Acute on chronic diastolic heart failure: (9) Stage 3a chronic kidney disease (CKD): (10) Hypoxia: (11) Opioid use disorder in remission: Plan Patient significantly improved after addition of steroids. Able to move legs and walk well. Weakness minimal and not as much radicular symptoms. Mild back pain. Increase ambulation. Still waiting for bed at [facility]. If symptoms continue to improve and no bed available will discharge in am and patient can have outpatient evaluation. Urinary Catheter Management Urinary Catheter Management Urethral: Cath placed during this visit: yes Urethral indwelling: No Insertion date: 11/18/23 Insertion time: 17:20
[2023-11-23] VITALS (12 sets, daily range): BP systolic 124–142; BP diastolic 55–61; PULSE 68–88; RESP 18; TEMP 36.9; O2SAT 93–95
[2023-11-23] MEDS: FUROSEMIDE 40 MG/4 ML VIAL IVP ×2 (00:33→12:17)
[2023-11-23] MEDS: PANTOPRAZOLE SODIUM 40 MG VIAL IV ×2 (00:34→12:17)
[2023-11-23] MEDS: IPRATROPIUM/ALBUTEROL SULFATE 3 ML AMPUL.NEB IH (04:09)
[2023-11-23] MEDS: METHYLPREDNISOLONE SOD SUCC PF 125 MG/2 ML VIAL 60 MG IVP ×2 (04:17→08:59)
[2023-11-23] MEDS: GABAPENTIN 100 MG CAPSULE PO ×2 (05:13→13:19)
[2023-11-23 05:37] LABS: Hematocrit 35.2 % (36.0-48.0); Hemoglobin 10.7 g/dL (12.0-16.0); Immature Granulocytes Abs Auto 0.06 10^3/uL (0.00-0.03); Lymphocytes Absolute Auto 0.2 10^3/uL (1.2-3.8); Mean Corpuscular HGB Conc 30.4 g/dL (29.9-35.2); Mean Corpuscular Hemoglobin 27.5 pg (26.7-34.0); Mean Corpuscular Volume 90.5 fL (81.0-99.0); Mean Platelet Volume 9.5 fL (9.5-13.5); Monocytes Absolute Auto 0.1 10^3/uL (0.3-0.8); Neutrophils Absolute Auto 1.6 10^3/uL (1.4-6.5); Platelet Count 279 10^3/uL (150-450); Red Blood Count 3.89 10^6/uL (4.20-5.40); Red Cell Distribution Width 15.8 % (11.0-15.0)
[2023-11-23 06:05] LABS: Alanine Aminotransferase 18 U/L (14-59); Albumin Globulin Ratio 0.6; Albumin Level 2.6 g/dL (3.4-5.0); Alkaline Phosphatase 121 U/L (46-116); Anion Gap 16.7; Aspartate Amino Transferase 17 U/L (15-37); Bilirubin Total 0.4 mg/dL (0.2-1.0); Calcium 9.1 mg/dL (8.5-10.1); Carbon Dioxide 26.4 mmol/L (21.0-32.0); Chloride 93 mmol/L (98-107); Estimated GFR (African America 33 (>=60); Estimated GFR (Non-African Ame 27 (>=60); Globulin 4.1 g/dL; Glucose 171 mg/dL (74-106); Potassium 4.1 mmol/L (3.5-5.1); Sodium 132 mmol/L (136-145); Total Protein 6.7 g/dL (6.4-8.2)
[2023-11-23] MEDS: AMLODIPINE BESYLATE 5 MG TABLET PO (08:54)
[2023-11-23] MEDS: FERROUS SULFATE 325 MG TABLET PO (08:54)
[2023-11-23] MEDS: METOPROLOL TARTRATE 25 MG TABLET PO (08:54)
[2023-11-23] MEDS: NON-FORMULARY 1 EACH (Buprenorphine-Naloxone 8-2 mg film) 1.5 EACH SL (09:02)
--- NOTE | 2023-11-23 12:39 | RESP.RT ---
Placed on room air
--- NOTE | 2023-11-23 16:08 | PM.DS1 ---
DS: Providers Provider Date of admission: 11/19/23 19:33 Primary care physician: Non-Staff Physician, Consults: 11/19/23 00:11 Physical Therapy Eval and Treat Routine Reason for consultation: ambulatory dysfunciton Has provider been notified: No 11/19/23 08:12 Occupational Therapy Eval and Treat Routine Reason for consultation: Ambulatory dysfunction/weakness Physical Therapy Eval and Treat Routine Reason for consultation: Ambulatory dysfunction/weakness 11/19/23 11:01 Consult to TeleNeurology Routine Reason for consultation: Bilateral LE weakness and numbness 11/19/23 11:03 Consult to General Surgeon Routine Consulting Provider: Jarrod [place] Reason for consultation: Anemia, possible GIB DS: Diagnosis Discharge Diagnosis (1) AIDP (acute inflammatory demyelinating polyneuropathy): (2) Lumbar degenerative disc disease: (3) Hypertension: Qualifiers: Hypertension type: primary hypertension Qualified Code(s): I10 - Essential (primary) hypertension (4) Iron deficiency anemia: Qualifiers: Iron deficiency anemia type: chronic blood loss Qualified Code(s): D50.0 - Iron deficiency anemia secondary to blood loss (chronic) (5) COPD (chronic obstructive pulmonary disease): Qualifiers: COPD type: COPD with acute exacerbation Qualified Code(s): J44.1 - Chronic obstructive pulmonary disease with (acute) exacerbation (6) SHANKAR (acute kidney injury): (7) CAD (coronary atherosclerotic disease): Qualifiers: Coronary Disease-Associated Artery/Lesion type: [place] artery [place] vs. transplanted heart: [place] heart Associated angina: without angina Qualified Code(s): I25.10 - Atherosclerotic heart disease of [place] coronary artery without angina pectoris (8) Acute on chronic diastolic heart failure: (9) Stage 3a chronic kidney disease (CKD): (10) Hypoxia: (11) Opioid use disorder in remission: DS: Summary Hospital Course Hospital Course: Reason for admission: See ER note and H&P for details. 73 y/o female to ER with weakness in legs. C/o numbness in legs for several weeks and recently diagnosed with neuropathy. History of chronic back pain and lumbar DDD. Numbness and tingling worsened then developed weakness in legs. Very difficult to ambulate and not able to lift legs. To ER and CT showed degenerative changes but no acute change. Hgb low at 6.9 and history of iron def anemia and upper and lower endoscopy normal few months ago. Admitted for treatment. Hospital course: Gave 2 units PRBC and hgb improved then stable. Resumed home medication and added neurontin. Developed numbness in hands and fingers along with worsening weakness in legs. Patient had very difficult time standing or moving legs. Concerned of AIDP and consulted tele-neurology. Recommended MRI of spine and patient refused without sedation. Recommended transfer but no beds available. Continued to c/o weakness but was able to move feet. Gave lasix for CHF. Started solu-medrol. No beds available but symptoms much improved with steroids. Legs stronger and able to move. Patient able to stand and move legs. Pain in back resolved. Numbness in hands resolved. Mild numbness in feet but not tingling. Walking well and able to lift legs. Discharged home in stable condition. Will take prednisone tapered over 12 days. Resume home medication as directed. F/u with PCP and will need outpatient work up and imaging for back pain and weakness in legs. Time Spent with Patient Time attestation: Total time spent providing and/or coordinating discharge services: Exam Constitutional Vital Signs, click to edit/add: Last Vital Signs Temp 98.4 F 11/23/23 05:18 Pulse 75 11/23/23 14:00 Resp 18 11/23/23 05:18 BP 124/61 11/23/23 05:18 Pulse Ox 95 11/23/23 12:38 O2 Del Method Nasal Cannula 11/23/23 12:38 O2 Flow Rate 1 11/23/23 12:38 Documenting provider has reviewed patient's vital signs: yes Common normals: no apparent distress, oriented x3 and alert [facility] Common normals: normocephalic Eye Common normals: PERRL and EOMs intact bilaterally Respiratory Common normals: normal respiratory effort and clear to auscultation bilaterally Cardio Common normals: regular rate, regular rhythm, no gallops, no murmurs and no rub GI Common normals: Normal to inspection, nondistended, normoactive bowel sounds present and non-tender Extremity Common normals: no pedal edema DS: Data Data Completed and Pending Labs on day of discharge: Labs from last 24 hours 11/23/23 05:01 WBC 2.0 L RBC 3.89 L Hgb 10.7 L Hct 35.2 L MCV 90.5 MCH 27.5 MCHC 30.4 RDW 15.8 H Plt Count 279 MPV 9.5 Neut % (Auto) 79.0 H Lymph % (Auto) 12.0 L [place] % (Auto) 6.0 Eos % (Auto) 0.0 L Baso % (Auto) 0.0 L Neut # (Auto) 1.6 Lymph # (Auto) 0.2 L [place] # (Auto) 0.1 L Eos # (Auto) 0.0 Baso # (Auto) 0.0 Abs Immat Gran (auto) 0.06 H Imm/Tot Granulo (auto) 3.0 H Sodium 132 L Potassium 4.1 Chloride 93 L Carbon Dioxide 26.4 Anion Gap 16.7 BUN 68.0 H Creatinine 1.84 H Est GFR ( Amer) 33 L Est GFR (Non-Af Amer) 27 L BUN/Creatinine Ratio 37.0 Glucose 171 H Calcium 9.1 Total Bilirubin 0.4 AST 17 ALT 18 Alkaline Phosphatase 121 H Total Protein 6.7 Albumin 2.6 L Globulin 4.1 Albumin/Globulin Ratio 0.6 Discharge Plan Discharge Disposition: Home, Self-Care Condition: Good Discharge Medications: New gabapentin 100 mg Capsule 100 mg PO TID Qty: 90 0RF prednisone 10 mg tablets,dose pack 10 mg PO DAILY Qty: 39 0RF Rx Instructions: 6 PO daily x 3 days, then 4 PO daily x 3 days, then 2 PO daily x 3 days, then 1 PO daily x 3 days Continued buprenorphine-naloxone 8-2 mg film 1.5 film sublingual Q24H clopidogrel 75 mg tablet 75 mg PO DAILY Hold Instructions: Resume on 08/21/23. metoprolol tartrate 25 mg tablet 25 mg PO Q12H naloxone [Narcan] 4 mg/actuation spray,non-aerosol 1 spray INTRANASAL Q3M PRN (Reason: opioid overdose) valsartan 80 mg tablet 80 mg PO DAILY spironolactone 25 mg Tablet 25 mg PO QD 30 Days Qty: 30 0RF ferrous sulfate [Iron (ferrous sulfate)] 325 mg (65 mg iron) tablet 325 mg PO DAILY 30 Days Qty: 30 0RF amlodipine 5 mg tablet 5 mg PO DAILY furosemide 20 mg tablet 20 mg PO DAILY prasugrel 10 mg tablet 10 mg PO DAILY Activity: resume usual activities as tolerated Diet: advance to your usual diet Patient Instructions: Degenerative Disc Disease (DC), Chronic Inflammatory Demyelinating Polyneuropathy (DC) Forms: Portal Instructions Referrals: Shaikh Serna MD [Physician] - Follow Up Appointments: [facility]: [phone] - Call to schedule appt with Hematology; Information given for patient to obtain new PCP. Please tell them you were just discharged from hospital and need to be seen [facility] Discharge Date/Time: 11/23/23 15:22
--- NOTE | 2023-11-24 10:19 | CM.DCFOLLOWU ---
Person spoke with: patient How are you feeling? so much better and I am getting around much better How is your pain? none at this time Did you understand your discharge instructions? yes Do you have any questions about your discharge instructions? no Were you given any prescriptions at discharge? yes Were you able to get your prescriptions filled? yes Do you understand how to take your medications as ordered? yes Do you have any questions about your follow up appointment and do you plan to keep your follow up appointment? I am working on those right now and going to call today to get them scheduled. Is there anything else that you would like to discuss? no thank you. Questions/Comments/Concerns/Other: n/a
== END 2023-11-23 15:22 | disposition home or self-care (01) | DRG 94 ==
LOC: ER 18:38 → MS 20:17
PROVIDERS: Internal Medicine; Physician Assistant; Admitting Provider Internal Medicine; Emergency Provider Emergency Medicine; Visit Provider Internal Medicine
DX: G61.0 Guillain-Barre syndrome (principal); I50.33 Acute on chronic diastolic (congestive) heart failure; N17.9 Acute kidney failure, unspecified; J96.11 Chronic respiratory failure with hypoxia; I13.0 Hypertensive heart and chronic kidney disease with heart failure and stage 1 through stage 4 chronic kidney disease, or unspecified chronic kidney disease; J44.1 Chronic obstructive pulmonary disease with (acute) exacerbation; N18.31 Chronic kidney disease, stage 3a; D50.0 Iron deficiency anemia secondary to blood loss (chronic); I25.10 Atherosclerotic heart disease of native coronary artery without angina pectoris; M51.36 Other intervertebral disc degeneration, lumbar region; I25.2 Old myocardial infarction; F11.91 Opioid use, unspecified, in remission; Z96.652 Presence of left artificial knee joint; Z79.02 Long term (current) use of antithrombotics/antiplatelets; Z79.899 Other long term (current) drug therapy; Z85.828 Personal history of other malignant neoplasm of skin; Z83.3 Family history of diabetes mellitus; Z82.49 Family history of ischemic heart disease and other diseases of the circulatory system; Z83.6 Family history of other diseases of the respiratory system; Z95.5 Presence of coronary angioplasty implant and graft; E66.9 Obesity, unspecified; Z87.891 Personal history of nicotine dependence; Z68.35 Body mass index [BMI] 35.0-35.9, adult
CPT/HCPCS: 36415; 36430; 36600; 51702; 70450; 71045; 72131; 80048; 80053; 80061; 81003; 82805; 83605; 83735; 83880; 84484; 85007; 85018; 85025; 85027; 85610; 85730; 86850; 86900; 86901; 87635; 87811; 93005; 94640; 94761; 96365; 96372; 96375; 96376; 97110; 97161; 97165; 97530; 97535; 99285; G0378; J1756; J1940; J2930; P9016; Q3014

== ENCOUNTER 2023-12-08 11:56 | Outpatient (OUT) | payer MEDICARE, SELFPAY ==
--- OUTSIDE RECORDS SUMMARY | 2023-12-08 12:03 | XMS_ITS | CCD ---
Author Name Unknown Address [address] [place] [address] Organization [facility] Care Team Providers Care Space Buyer Name Role Phone INGRID IBARRA Unavailable Unavailable INGRID IBARRA Unavailable Unavailable James Pereira Primary Care Provider NON, STAFF, Attending Provider Unavailable Unavailable Unavailable James Pereira Unavailable Unavailable Unavailable Maxine Sawyer Unavailable Unavailable Unavailable James Pereira Primary Care Unavailable Carmen Michael Consulting Unavailable Al Serenity Charles Admitting Unavailab Nisha Barajas Attending Unavailable Gabriella Contreras Consulting Unavailable Hope Leslie Consulting Unavailable Ingrid Ibarra Consulting Unavail able Tammy Suarez Consulting Unavailable Robert Vu Consulting Unavailab Cristal Ko Consulting Unavailable Dionne Cueto Consulting Unavailable Damaris Moon Consulting Unavailab Callie Scales Consulting Unavailable DIAB, LARA Admitting Unavailable OMAR EDOUARDM Attending Unavailable DR JAMES PEREIRA Primary Care Unavailable RODERICK ESTRELLA Consulting Unavailable CHARLEY LUCAS Consulting Unavailable MARLON METCALF Consulting Unavailable DIAB, LARA Consulting Unavailable Julio WALLER, Dr. Ingrid Palma Attending Unavailable Julio WALLER, Dr. Ingrid Palma Referring Unavailable Dr. James Pereira Primary Care Unavailable JAMES PEREIRA Primary Care Unavailable GILMER, EHAD Consulting Unavailable INPATIENT, TELENEUROLOGY Consulting Unavail able James Pereira DO Primary Care Provider SHAIKH BINGHAM Attending Unavailable ZENA ESPINOSA Attending Unavailable Unavailable Unavailable Unavailable Medications Current Medications Medication Drug Class(es) Dates Sig (Normalized) Sig (Original) acetaminophen 325 mg oral tablet (4 sources) Start: 09-09-2020 take 650 mg by mouth every six hours Acetaminophen Active 650 MG PO Q6H 0 September 09, 2020 12:35pm take 1-2 tablets by mouth every six hours as needed Acetaminophen 325 MG Oral Tablet TAKE 1 TO 2 TABLETS EVERY 6 HOURS NEEDED. Quantity: 0 Refills: 0 Ordered: 30-Apr-2022 DO Active [id number] 200 actuat albuterol 0.09 mg/actuat metered dose inhaler (1 source) beta2-Adrenergic Agonist Start: 10-12-2021 take 2 puff(s) by inhalation every four hours as needed Albuterol Sulfate HFA 108 (90 Base) MCG/ACT 2 puffs Inhalation every 4 hours as needed for 7 days Sep, Active aspirin 81 mg chewable tablet (6 sources) Platelet Aggregation Inhibitor, Nonsteroidal Anti-inflammatory Drug Start: 10-14-2019 End: 08-29-2020 take 81 mg by mouth once daily in the morning Aspirin Active 81 MG PO Every morning August 29, 2020 4:42pm take 1 tablet by mouth once scott y Aspirin EC 81 MG Oral Tablet Delayed Release TAKE 1 TABLET Daily Quantity: 0 Refills: 0 Ordered: 18-Apr-2022 DO Active atorvastatin 40 mg oral tablet (5 sources) HMG-CoA Reductase Inhibitor Start: 10-13-2019 End: 09-09-2020 take 1 tablet by mouth once daily atorvastatin (LIPITOR) 40 mg tablet Take 40 mg by mouth nightly. 3 10/13/2019 Active take 1 tablet by mouth once scott y Atorvastatin Calcium 80 MG Oral Tablet Take 1 tablet daily Quantity: 90 Refills: 3 Ordered: 30-Apr-2022 Cristal Rosas Active azithromycin 250 mg oral tablet (1 source) Macrolide Antimicrobial Zithroma x Z-David 250 MG 2 tablet on the first day, then 1 tablet daily for 4 days Orally Once a day for 5 day(s) Active bacitracin 0.5 unt/mg ophthalmic ointment (2 sources) Start: 09-06-2020 Bacitracin Active 1 APPLIC OPHTHALMIC Q8H October 02, 2020 3:31pm 168 hr cloNIDine 0.02794 mg/hr transdermal system (2 sources) Central alpha-2 Adrenergic Agonist Start: 12-24-2020 cloNIDine (CATAPRES-TTS) 0.2 mg/24 hr apply ONE PATCH EACH Week @0900 IN THE MORNING 0 12/24/2020 Active Start: 09-09-2020 Clonidine Acti ve 1 EACH TRANSDERML We@0900 4 September 09, 2020 12:35pm diclofenac sodium 0.01 mg/mg topical gel (1 source) Nonsteroidal Anti-inflammatory Drug Start: 03-24-2019 diclofenac sodium (VOLTAREN) 1 % gel Apply 2 g topically 4 (four) times a day. 100 g 0 03/24/2019 Active ferrous sulfate 325 mg delayed release oral tablet (6 sources) Start: 08-29-2020 End: 09-09-2020 take 325 mg by mouth once daily in the morning Ferrous Sulfate Active 325 MG PO Every morning September 09, 2020 12:39pm take 1 tablet by lucio th once daily at breakfast ferrous sulfate 325 (65 FE) mg tablet Ta ke 325 mg by mouth daily with breakfast. 0 Active take 1 tablet by mouth once scott y Ferrous Sulfate 324 MG Oral Tablet Delayed Release Take 1 tablet daily Quantity: 0 Refills: 0 Ordered: 30-Apr-2022 DO Active hydroCHLOROthiazide 25 mg oral tablet (5 sources) Thiazide Diuretic Start: 09-09-2020 take 1 tablet by mouth once daily hydroCHLOROthiazide (HYDRODIURIL) 25 mg tablet Take 25 mg by mouth daily. 0 12/24/2020 Active Start: 06-05-2020 End: 09-09-2020 take 12.5 mg by mouth once daily in the morning Hydrochlorothiazide Discontinued 12.5 MG PO Every morning August 29, 2020 4:42pm September 09, 2020 12:40pm further refills per PCP or Dr. Ibarra lisinopril 40 mg oral tablet (5 sources) Angiotensin Converting Enzyme Inhibitor Start: 04-05-2019 End: 04-06-2019 take 5 mg by mouth once daily Lisinopril Discontinued 5 MG PO Daily April 05, 2019 8:25am April 06, 2019 12:58pm Start: 04-20-2018 End: 09-09-2020 take 40 mg by mouth once daily in the morning Lisinopril Active 40 MG PO Every morning September 09, 2020 12:39pm Magnesium (4 sources) Start: 09-09-2020 take 400 mg by mouth once daily in the morning Magnesium Active 400 MG PO Every morning 60 September 09, 2020 12:39pm Start: 08-29-2020 End: 09-09-2020 take 400 mg by mouth once daily in the morning Magnesium Discontinued 400 MG PO Every morning August 29, 2020 4:39pm September 09, 2020 12:40pm take 1 tablet by lucio th once daily Magnesium 200 MG Oral Tablet TAKE 1 TABLET DAILY DIRECTED. Quantity: 0 Refills: 0 Ordered: 30-Apr-2022 DO Active magnesium gluconate 550 mg oral tablet (1 source) take 1 tablet by mouth twice daily magnesium 30 mg tablet Take 30 mg by mouth 2 (two) times a day. 0 Active magnesium oxide 400 mg oral tablet (1 source) Start: 12-24-2020 take 1 tablet by mouth once daily as needed magnesium oxide (MAG-OX) 400 mg tablet Take 1 tablet by mouth daily as needed. 0 12/24/2020 Active metoprolol tartrate 25 mg oral tablet (7 sources) beta-Adrenergic Bronwyn Start: 09-09-2020 take 25 mg by mouth every twelve hours Metoprolol Tartrate Active 25 MG PO Every 12 hours 60 September 09, 2020 12:30pm Start: 06-03-2020 End: 09-09-2020 take 50 mg by mouth every twelve hours Metoprolol Tartrate Discontinued 50 MG PO Every 12 hours June 03, 2020 11:09am September 09, 2020 12:40pm Start: 06-24-2018 take 1 tablet by lucio th every twelve hours metoprolol tartrate (LOPRESSOR) 50 mg tablet 50 mg every 12 (twelve) hours. 3 06/24/2018 Active take 1 tablet by lucio th twice daily Metoprolol Tartrate 25 MG Oral Tablet TAKE 1 TABLET TWICE DAILY. Quantity: 0 Refills: 0 Ordered: 30-Apr-2022 DO Active take 1 tablet by lucio th every twelve hours Metoprolol Tartrate 50 MG 1 tablet with food Orally Twice a day Active naloxone hydrochloride 40 mg/ml nasal spray (2 sources) Opioid Antagonist Start: 01-15-2021 naloxone (NA RCAN) 4 mg/actuation spray,non-aerosol nasal spray Indications: Long-term current use of opiate analgesic Administer 1 spray (4 mg total) into each nostril as needed for opioid reversal (administer as directed for suspected overdose). 2 each 0 01/15/2021 Active Narcan 4 MG/0.1M L Nasal Liquid as directed Quantity: 0 Refills: 0 Ordered: 20-Aug-2023 DO Active nitroglycerin 0.4 mg sublingual tablet (4 sources) Nitrate Vasodilator Start: 10-14-2019 Nitroglycerin Active 0.4 MG SUBLINGUAL Q5M 25 October 14, 2019 10:44am predniSONE 20 mg oral tablet (1 source) Start: 10-12-2021 take 2 tablets by mouth every twenty-four hours predniSONE 20 MG 2 tablets Orally Once a day for 5 days Sep, Active torsemide 5 mg oral tablet (1 source) Loop Diuretic Start: 07-30-2020 torsemide (DEMADEX) 5 mg tablet traMADol hydrochloride 50 mg oral tablet (3 sources) Opioid Agonist Start: 02-28-2021 take 1 tablet by mouth four times daily as needed for pain traMADoL (ULTRAM) 50 mg tablet Indications: Lumbosacral spondylosis without myelopathy Take 1 tablet (50 mg total) by mouth 4 (four) times a day as needed for pain. Fill date 02/28/21 120 tablet 0 02/28/2021 Active Start: 08-29-2020 End: 08-29-2020 Tramadol Discontinued MG TAB LET August 29, 2020 4:39pm August 29, 2020 4:43pm Start: 04-05-2019 take 50 mg by mouth every six hours Tramadol Active 50 MG PO Every 6 hours April 05, 2019 3:44pm Vitamin B Comp And C No.3 (1 source) Start: 06-05-2020 take 1 capsule by mouth once daily at mealtime Vitamin B Comp And C No.3 Active 1 CAP PO Daily June 05, 2020 4:59pm give with food (meal/snack) Vitamin B12 500 MCG (1 source) take 1 tablet by mouth once daily Vitamin B12 500 MCG 1 tablet Orally Once a day Active Completed/Discontinued Medications Medication Drug Class(es) Dates Sig (Normalized) Sig (Original) amLODIPine 5 mg oral tablet (7 sources) Dihydropyridine Calcium Channel Bronwyn Start: 08-20-2023 take 1 tablet by mouth once daily amLODIPine Besylate 5 MG Oral Tablet TAKE 1 TABLET DAILY. Quantity: 90 Refills: 3 Ordered: 20-Aug-2023 Ingrid Ibarra MD Start : 20-Aug-2023 Active Start: 04-20-2018 End: 09-09-2020 take 10 mg by mouth once daily in the morning Amlodipine Active 10 MG PO Every morning September 09, 2020 12:39pm buprenorphine 8 mg / naloxone 2 mg sublingual film (1 source) Partial Opioid Agonist, Opioid Antagonist Buprenorphine HCl-Naloxone HCl - 8-2 MG Sublingual Film as directed Quantity: 0 Refills: 0 Ordered: 20-Aug-2023 DO Active clopidogrel 75 mg oral tablet (6 sources) P2Y12 Platelet Inhibitor Start: 10-14-20 End: 09-09-20 20 take 1 tablet by mouth once Clopidogrel Bisulfate 75 MG Oral Tablet On day one take 300mg then 75mg daily thereafter Quantity: 94 Refills: 3 Ordered: 17-Jun-2022 Ingrid Ibarra MD Start : 17-Jun-2022 Active stop Brilinta/ new start 17 ml ferumoxytol 30 mg/ml injection (1 source) Parenteral Iron Replacement Start: 07-03-20 20 Ferumoxytol 510 MG/17ML as directed Intravenous Jun, Not-Taking furosemide 20 mg oral tablet (1 source) Loop Diuretic Start: 08-20-20 23 take 1 tablet by mouth once daily Furosemide 20 MG Oral Tablet TAKE 1 TABLET DAILY. Quantity: 90 Refills: 3 Ordered: 20-Aug-2023 Ingrid Ibarra MD Start : 20-Aug-2023 Active Oxygen (1 source) Oxygen 3 LPM Quantity: 0 Refills: 0 Ordered: 20-Aug-2023 DO Active potassium chloride 20 meq extended release oral tablet (2 sources) Start: 04-05-20 End: 06-03-20 20 take 20 mEq by mouth once daily Potassium Chloride Discontinued 20 MEQ PO Daily April 05, 2019 8:25am June 03, 2020 11:05am Start: 04-20-2018 potassium chlo ride (K-DUR,KLOR-CON) 20 MEQ CR tablet Take 20 mEq by mouth daily. 3 04/20/2018 Active prasugrel 10 mg oral tablet (1 source) P2Y12 Platelet Inhibitor Start: 08-20-2023 take 1 tablet by mouth once daily Prasugrel HCl - 10 MG Oral Tablet TAKE 1 TABLET DAILY. Quantity: 90 Refills: 3 Ordered: 20-Aug-2023 Ingrid Ibarra MD Start : 20-Aug-2023 Active spironolactone 25 mg oral tablet (1 source) Aldosterone Antagonist take 1 tablet by mouth once daily Spironolactone 25 MG Oral Tablet TAKE 1 TABLET DAILY. Quantity: 90 Refills: 3 Ordered: 20-Aug-2023 DO Active ticagrelor 90 mg oral tablet (2 sources) Start: 04-22-2022 take 1 tablet by mouth twice daily Brilinta 90 MG Oral Tablet TAKE 1 TABLET TWICE DAILY. Quantity: 180 Refills: 3 Ordered: 22-Apr-2022 Ingrid Contreras DO Start : 22-Apr-2022 Active valsartan 80 mg oral tablet (3 sources) Angiotensin 2 Receptor Bronwyn take 1 tablet by mouth once daily Valsartan 80 MG Oral Tablet TAKE 1 TABLET DAILY. Quantity: 90 Refills: 3 Ordered: 20-Aug-2023 Ingrid Ibarra MD Active Vitamin B Complex CAPS (2 sources) Vitamin B Comple x CAPS TAKE 1 CAPSULE Daily Quantity: 0 Refills: 0 Ordered: 30-Apr-2022 DO Active Problems Active Problems Problem Classification Problem Date Documented Da te Episodic/Chronic Acute and unspecified renal failure (5 sources) Acute renal failure syndrome; Translations: [Injury of kidney] Onset: 04-16-2022 Episodic Chronic kidney disease (3 sources) Chronic kidney disease stage 3; Translations: [Chronic kidney disease, stage 3 (moderate)] Onset: 04-16-2022 Chronic Complications of surgical procedures or medical care (1 source) Trauma and postoperative pulmonary insufficiency; Translations: [Respiratory failure following trauma and surgery] Episodic Congestive heart failure; nonhypertensive (2 sources) Acute congestive heart failure; Translations: [Congestive heart failure] Chronic Coronary atherosclerosis and other heart disease (9 sources) Coronary arteriosclerosis; Translations: [Preinfarction syndrome] Onset: 04-16-2022 Chronic Deficiency and other anemia (1 source) Iron deficiency anemia; Translations: [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 Deficiency and other anemia (1 source) Anemia; Translations: [Anemia] Episodic Disorders of lipid metabolism (4 sources) Hyperlipidemia; Translations: [Mixed hyperlipidemia] Chronic E Codes: Fall (1 source) Fall on same level, unspecified, initial encounter; Translations: [FALL SAME LEVEL UNSPECIFIED INITIAL] Onset: 12-29-2022 Episodic Essential hypertension (6 sources) Hypertensive disorder; Translations: [Essential hypertension] Onset: 04-16-2022 Chronic Essential hypertension (1 source) Essential hypertension Onset: 07-22-2017 Fracture of upper limb (1 source) Other intraarticular fracture of lower end of left radius, initial encounter for closed fracture; Translations: [OTH IA FX LOW LT RADUS INIT CLOS FX] Onset: 12-29-2022 Episodic Hypertension with complications and secondary hypertension (3 sources) Hypertensive emergency; Translations: [Hypertensive urgency ] Chronic Malaise and fatigue (2 sources) Malaise; Translations: [Asthenia] Episodic Nausea and vomiting (1 source) Nausea; Translations: [Nausea] Episodic Nonspecific chest pain (6 sources) Chest pain; Translations: [Chest pain, unspecified] Onset: 04-16-2022 Episodic Nutritional deficiencies (1 source) Iron deficiency; Translations: [Iron deficiency] Chronic Other aftercare (3 sources) Treatment changed; Translations: [Long-term (current) use of other medications] Episodic Other aftercare (1 source) Other snf (current) drug therapy; Translations: [OTH [facility] CURRENT DRUG THERAPY] Onset: 12-29-2022 Episodic Other bone disease and musculoskeletal deformities (1 source) Other specified disorders of bone density and structure, left lower leg; Translations: [OTH D/O BONE DEN STRUCT LT LOW LEG] Onset: 12-29-2022 Episodic Other circulatory disease (4 sources) Patient post angioplasty; Translations: [Other postprocedural status] Episodic Other circulatory disease (3 sources) Carotid bruit; Translations: [Other symptoms involving cardiovascular system] Episodic Other lower respiratory disease (1 source) Hypoxia; Translations: [Hypoxia] Episodic Other lower respiratory disease (3 sources) Dyspnea; Translations: [Shortness of breath] Episodic Other non-traumatic joint disorders (1 source) Effusion, left knee; Translations: [EFFUSION LEFT KNEE] Onset: 12-29-2022 Episodic Other nutritional; endocrine; and metabolic disorders (7 sources) Body mass index 30+ - obesity; Translations: [Body Mass Index 34.0-34.9, adult] Chronic Other nutritional; endocrine; and metabolic disorders (3 sources) Obesity; Translations: [Obesity, unspecified] Chronic Other nutritional; endocrine; and metabolic disorders (1 source) Hypomagnesemia; Translations: [Hypomagnesemia] Chronic Other screening for suspected conditions (not mental disorders or infectious disease) (3 sources) Echocardiogram abnormal; Translations: [Nonspecific (abnormal) findings on radiological and other examination of other intrathoracic organs] Episodic Residual codes; unclassified (1 source) Physical deconditioning; Translations: [Physical deconditioning] Episodic Residual codes; unclassified (3 sources) Edema; Translations: [Edema] Episodic Screening and history of mental health and substance abuse codes (4 sources) Ex-smoker; Translations: [Personal history of tobacco use] Episodic Comment on above: Quit 1994; Spondylosis; intervertebral disc disorders; other back problems (1 source) Lumbosacral spondylosis without myelopathy; Translations: [Spondylosis without myelopathy or radiculopathy, lumbosacral region] Onset: 07-05-2018 03-24-2019 Chronic Superficial injury; contusion (2 sources) Contusion of left hand, initial encounter; Translations: [Contusion of left knee, initial encounter] Onset: 12-29-2022 Episodic Syncope (1 source) Near syncope; Translations: [Pre-syncope] Episodic Unclassified (2 sources) Oth symptoms and signs involving the circ and resp systems / R09.89(ICD-9) Onset: 07-22-2017 Unclassified (1 source) Pure hypercholesterolemia , unspecified / E78.00(ICD-9) Onset: 07-22-2017 Unclassified (1 source) Personal history of nicotine dependence / Z87.891(ICD-9) Onset: 07-22-2017 Unclassified (1 source) Athscl heart disease of [place] coronary artery w/o ang pctrs / I25.10(ICD-9) Onset: 07-22-2017 Unclassified (1 source) Old myocardial infarction / I25.2(ICD-9) Onset: 07-22-2017 Unclassified (1 source) Overweight / E66.3(ICD-9) Onset: 07-22-2017 Past or Other Problems Problem Classification Problem Date Documented Da te Episodic/Chronic Conditions associated with dizziness or vertigo (2 sources) Dizziness; Translations: [Dizziness and giddiness] Onset: 04-16-2022 Episodic Deficiency and other anemia (1 source) Iron deficiency anemia; Translations: [Iron deficiency anemia, unspecified] Episodic Fluid and electrolyte disorders (1 source) Acidosis; Translations: [Acidosis] Onset: 04-16-2022 Episodic Immunizations and screening for infectious disease (1 source) Contact with and (suspected) exposure to other viral communicable diseases Onset: 10-12-2021 Resolved: 10-12-2021 Episodic Other circulatory disease (1 source) Other specified symptoms and signs involving the circulatory and respiratory systems; Translations: [Oth symptoms and signs involving the circ and resp systems] Onset: 07-22-2017 Episodic Other gastrointestinal disorders (1 source) Occult blood in stools; Translations: [Other fecal abnormalities] Episodic Other non-epithelial cancer of skin (3 sources) Malignant neoplasm of skin; Translations: [Basal cell carcinoma of face] Episodic Spondylosis; intervertebral disc disorders; other back problems (1 source) Disorder of sacrum; Translations: [Sacrococcygeal disorders, not elsewhere classified] Onset: 05-31-2019 01-15-2021 Episodic Viral infection (1 source) COVID-19 Onset: 10-12-2021 Resolved: 10-12-2021 Results Test Name Value Interpretation Reference Range Facility Multiple labsOrdered By: Maureen Eckert on 11-23-2023 [facility] Height or Weight NOT Doneon 08-20-2023 Adult depression screening assessment No [facility] [employer] DO Work Phone: Fall risk assessment a) No falls within the last year [facility] [employer] 600 DO Work Phone: Office Visit (Cardiology)on 08-20-2023 Follow-up visit Diagnoses/Problems Assessed Mixed hyperlipidemia (272.2) (E78.2) Essential hypertension (401.9) (I10) Atherosclerosis of [place] coronary artery without angina pectoris (414.01) (I25.10) Status post angioplasty (V45.89) (Z98.62) Shortness of breath (786.05) (R06.02) Former smoker (V15.82) (Z87.891) Quit 1993 Orders Atherosclerosis of [place] coronary artery without angina pectoris, Status post angioplasty Start: Prasugrel HCl - 10 MG Oral Tablet (Effient); TAKE 1 TABLET DAILY Edema, Essential hypertension Start: Furosemide 20 MG Oral Tablet; TAKE 1 TABLET DAILY Essential hypertension Start: amLODIPine Besylate 5 MG Oral Tablet; TAKE 1 TABLET DAILY Renew: Valsartan 80 MG Oral Tablet; TAKE 1 TABLET DAILY SocHx: Former smoker Tobacco Use Screening; Status:Complete; Done: [id number] Unlinked Stop: amLODIPine Besylate 10 MG Oral Tablet Stop: Furosemide 40 MG Oral Tablet Patient Instructions Please bring all medicines, vitamins, and herbal supplements with you when you come to the office. Prescriptions will not be filled unless you are compliant with your follow up appointments or have a follow up appointment scheduled as per instruction of your physician. Refills should be requested at the time of your visit. patient to discontinue Clopidogrel/ Plavix. Start Prasugrel/ Effient 10 mg once daily Reduce Furosemide 20 mg once daily Reduce Amlodipine 5 mg once daily. Follow up in 6 months Chief Complaint KUSUM HUERTA is being seen for an annual follow-up of. History of Present Illness Returns in follow-up of problems as noted. In the interim she is done well. A long detailed discussion ensued regarding antiplatelet therapy. It was Dr. Contreras's original recommendation that she be on Effient or Brilinta. She could not tolerate Brilinta and was unintentionally switch back to Plavix. Today we will switch to prasugrel as per his original recommendation She is having some problems with low blood pressure and because of this adjustments in therapy will be made with a reduction in antihypertensive therapy. Also some edema and because of this a small dose of Lasix is added. She was educated regarding symptoms to watch for and she will call if they arise but otherwise she will continue as before. Merits of diet and weight loss were again advocated. Surgical History Problems History of Appendectomy History of Cardiac catheterization History of Cardiac catheterization with stent placement History of Cholecystectomy History of Complete colonoscopy History of Eye surgery History of Hysterectomy History of Knee replacement History of Thrombectomy Current Meds Medication NameInstruction Acetaminophen 325 MG Oral TabletTAKE 1 TO 2 TABLETS EVERY 6 HOURS NEEDED. amLODIPine Besylate 10 MG Oral TabletTAKE 1 TABLET DAILY. Buprenorphine HCl-Naloxone HCl - 8-2 MG Sublingual Filmas directed Clopidogrel Bisulfate 75 MG Oral TabletOn day one take 300mg then 75mg daily thereafter Ferrous Sulfate 324 MG Oral Tablet Delayed ReleaseTake 1 tablet daily Furosemide 40 MG Oral TabletTAKE 1 TABLET BY MOUTH ONE TIME A DAY Metoprolol Tartrate 25 MG Oral TabletTAKE 1 TABLET TWICE DAILY. Narcan 4 MG/0.1ML Nasal Liquidas directed Nitroglycerin 0.4 MG Sublingual Tablet SublingualPLACE 1 TABLET UNDER THE TONGUE EVERY 5 MINUTES FOR UP TO 3 DOSES NEEDED FOR CHEST PAIN.CALL 911 IF PAIN PERSISTS. Oxygen3 LPM Spironolactone 25 MG Oral TabletTAKE 1 TABLET DAILY. Valsartan 80 MG Oral TabletTAKE 1 TABLET DAILY. Allergies Medication No Known Drug Allergies Recorded By: Jennie Goetz; 04/18/2022 1:43:00 PM Social History Problems Caffeine use (V49.89) (Z78.9) 4 cups tea daily Former smoker (V15.82) (Z87.891) Quit 1993 No alcohol use No illicit drug use Review of Systems Constitutional: not feeling tired. Eyes: no eyesight problems. ENT: no hearing loss and no nosebleeds. Cardiovascular: no intermittent leg claudication and as noted in HPI. Respiratory: no chronic cough and no shortness of breath. Gastrointestinal: no change in bowel habits and no blood in stools. Genitourinary: no urinary frequency. Skin: no skin rashes. Neurological: no seizures and no frequent falls. Psychiatric: no depression and not suicidal. All other systems have been reviewed and are negative for complaint. Vitals Vital Signs Recorded: [id number] 11:08AM Heart Rate70, L Radial [id number], LUE, Sitting [id number], LUE, Sitting Height5 ft 3 in Height or Weight NOT DoneMedical Reason Not Done PHQ-2 #1. Over the last 2 weeks have you felt down, depressed or hopeless? (If yes, answer PHQ-9 below)No PHQ-2 #2. Over the last 2 weeks have you felt little interest or pleasure in doing things? (If yes, answer PHQ-9 below)No Falls Screening (Age 18+)a) No falls within the last year Physical Exam Constitutional: alert and in no acute distress. Eyes: no erythema, swelling or discharge from the eye . (more content not included)... Normal Touchworks XR KNEE LT 4V or >on 023 XR KNEE LT 4V or > XR KNEE LT 4V or >: HISTORY: Falls. COMPARISON: None available. TECHNIQUE: 4 radiographic view(s) obtained. FINDINGS: BONES/JOINT SPACES: There is no acute fracture or dislocation. There is a left total knee arthroplasty which appears intact. There are moderate degenerative changes of the patellofemoral joint with osteophytic spurring. There is mild to moderate osteopenia. SOFT TISSUES: Diffuse atherosclerotic calcification. IMPRESSION: 1. No acute osseous abnormality. 2. Left knee arthroplasty in place with no evidence of complication. 3. Osteopenia. Electronically authenticated by: CHARLEY LUCAS Date: 2022-12-27 15:51 Normal [facility] XR RIBS LT PA Waqar 3 XR RIBS LT PA CH EXAM: XR RIBS LT PA CH INDICATION: Falls. COMPARISON: None. TECHNIQUE: Left rib series with frontal view of the chest FINDINGS: No acute displaced rib fracture identified. No osseous lytic or blastic lesion. Enlarged cardiac silhouette. No acute infiltrative process, pleural effusion, or pneumothorax. Trouble subcentimeter calcified granuloma in the right lung base. [place] screws noted in the right humeral head. IMPRESSION: 1. No acute rib fracture identified. 2. No acute cardiopulmonary process. Electronically authenticated by: MARLON METCALF Date: 2022-12-27 15:50 Normal [facility] Tobacco Screening.on 022 Adult depression screening assessment No [facility] 250 DO Work Phone: Fall risk assessment a) No falls within the last year [facility] 250 DO Work Phone: Tobacco use status CPHS b) No [facility] 250 DO Work Phone: Basic Metabolic Panelon 03-24 Calcium [Mass/Vol] 8.9 mg/dL Normal 8.2-10.2 [facility] Comment on above: Performed By: #### C BC, BMP #### [facility] [address] [place] [address] [place] Chloride [Moles/Vol] 106 mmol/L Normal 95-114 [facility] Comment on above: Performed By: #### C BC, BMP #### [facility] [address] [place] [address] [place] CO2 [Moles/Vol] 22.3 mmol/L Normal 22.0-30.0 [facility] Comment on above: Performed By: #### C BC, BMP #### [address] Creatinine [Mass/Vol] 1.42 mg/dL High 0.44-1.[address] [facility] Comment on above: Performed By: #### C BC, BMP #### [address] Creatinine Clr Calc Pharmacy 38.78 [facility] Comment on above: Result Comment: PERF ORMED BY: [place] [address] PATHOLOGIST [employer] CUCA VOGT M.D. Performed By: #### C BC, BMP #### [address] Estimated GFR ( Jasmin 44 [facility] Comment on above: Result Comment: GFR estimated reference range: According to KDOQI guidelines, <60 ml/min/1.73m2 is sufficient to diagnose a patient with chronic kidney disease. Performed By: #### C BC, BMP #### [place] [address] [place] Estimated GFR (Non- Am 36 [facility] Comment on above: Performed By: #### C BC, BMP #### [address] Glucose [Mass/Vol] 107 mg/dL High 70-100 [facility] Comment on above: Result Comment: [place] Glucose Reference Range is dependent on time and content of last meal. Glucose of more than 200 mg/dL in a nonstressed, ambulatory subject supports the diagnosis of Diabetes Mellitus. ADA recommended reference range Performed By: #### C BC, BMP #### [address] Potassium [Moles/Vol] 4.2 mmol/L Normal 3.5-5.[address] [facility] Comment on above: Performed By: #### C BC, BMP #### [address] Sodium [Moles/Vol] 139 mmol/L Normal 136-146 [facility] Comment on above: Performed By: #### C BC, BMP #### [address] Urea nitrogen [Mass/Vol] 16 mg/dL Normal - [facility] Comment on above: Performed By: #### C BC, BMP #### [address] Complete Blood Count Auto Di ffon 04-18-2022 Basophils (Bld) [#/Vol] 0.1 10*3/uL Normal 0.0-0.2 [facility] Comment on above: Result Comment: PERF ORMED BY: [place] [address] PATHOLOGIST [employer] CUCA VOGT M.D. Performed By: #### C BC, BMP #### [address] Basophils/100 WBC (Bld) 1.2 % Normal . [facility] Comment on above: Performed By: #### C BC, BMP #### [address] Eosinophils (Bld) [#/Vol] 0.2 10*3/uL Normal 0.0-0.45 [facility] Comment on above: Performed By: #### C BC, BMP #### [address] Eosinophils/100 WBC (Bld) 1.8 % Normal . [facility] Comment on above: Performed By: #### C BC, BMP #### [address] Erythrocyte distribution width (RBC) [Ratio] 17.9 % High 11.9-15.3 [facility] Comment on above: Performed By: #### C BC, BMP #### [address] Hematocrit (Bld) [Volume fraction] 30.9 % Low 34.0-46.4 [facility] Comment on above: Performed By: #### C BC, BMP #### [address] [place] [address] [place] Hemoglobin (Bld) [Mass/Vol] 9.9 g/dL Low 11.8-15.4 [facility] Comment on above: Performed By: #### C BC, BMP #### [facility] [address] Lymphocytes (Bld) [#/Vol] 1.0 10*3/uL Normal 1.00-4.8 [facility] Comment on above: Performed By: #### C BC, BMP #### [facility] [address] Lymphocytes/100 WBC (Bld) 11.3 % Normal . [facility] Comment on above: Performed By: #### C BC, BMP #### [address] MCH (RBC) [Entitic mass] 25.7 pg Normal 24.7-34.3 [facility] Comment on above: Performed By: #### C BC, BMP #### [address] MCV (RBC) [Entitic vol] 80.1 fL Normal 80-100 [facility] Comment on above: Performed By: #### C BC, BMP #### [address] Mean Corpuscular HGB Conc 32.0 g/dL Normal 32.0-35.0 [facility] Comment on above: Performed By: #### C BC, BMP #### [place] [address] [place] Monocytes (Bld) [#/Vol] 0.5 10*3/uL Normal 0.0-0.8 [facility] Comment on above: Performed By: #### C BC, BMP #### [place] [address] [place] Monocytes/100 WBC (Bld) 5.3 % Normal . [facility] Comment on above: Performed By: #### C BC, BMP #### [place] [id number] [place] Neutrophils (Bld) [#/Vol] 7.0 10*3/uL Normal 1.8-7.7 [facility] Comment on above: Performed By: #### C LUCIAN, BMP #### [facility] [address] [place] [address] [place] Neutrophils/100 WBC (Bld) 80.4 % Normal . [facility] Comment on above: Performed By: #### C LUCIAN, BMP #### [facility] [address] [place] [address] [place] Nucleated RBC/100 WBC (Bld) [Ratio] 0.1 % Normal 0-0.5 [facility] Comment on above: Performed By: #### C LUCIAN, BMP #### [address] Platelet mean volume (Bld) [Entitic vol] 8.1 fL Normal 6.3-10.7 [facility] Comment on above: Performed By: #### C LUCIAN, BMP #### [facility] [address] [place] [address] [place] Platelets (Bld) [#/Vol] 236 10*3/uL Normal 150-450 [facility] Comment on above: Performed By: #### C LUCIAN, BMP #### [place] [address] [place] RBC (Bld) [#/Vol] 3.86 10*6/uL Normal 3.60-5.00 [facility] Comment on above: Performed By: #### C LUCIAN, BMP #### [place] [address] [place] WBC (Bld) [#/Vol] 8.7 10*3/uL Normal 4.5-11.0 [facility] Comment on above: Performed By: #### C LUCIAN, BMP #### [place] [address] [place] ECG 12 lead ECGon 04-18-2022 ECG 12 lead ECG [facility] Main [place] [address] [place] [address] Electrocardiograph Report Signed Patient: Kusum Huerta MR#: [id number] 01 : 1950 Acct:[id number] Age/Sex: 72 / F ADM Date: 04/16/22 Loc: Room: [address] [place] [address] Type: DIS IN Attending Dr: Nisha Crane MD Ordering Provider: Gabriella Contreras DO Date of Service: 04/18/22 ECG/ECG 12 lead ECG: Post Angioplasty Procedure in AM Copies to: Test Reason : Blood Pressure : / mmHG Vent. Rate : 058 BPM Atrial Rate : 058 BPM P-R Int : 170 ms QRS Dur : 078 ms QT Int : 458 ms P-R-T Axes : 064 041 062 degrees QTc Int : 449 ms Sinus bradycardia Otherwise normal ECG No previous ECGs available Confirmed by TAMMY SUAREZ MD ([id number]) on 04/18/2022 3:19:45 PM Referred By: Electronically Signed By:TAMMY SUAREZ MD Transcribed By: MUS Signed By Tammy Suarez MD 0 04/18/22 1519 Normal [facility] Troponin I High Sensitivityo n 04-18-2022 Troponin I High Sensitivity 5969 pg/mL Off scale high 0-15 [facility] Comment on above: Result Comment: Resu lts called at 0615 on 04/18/22 PERFORMED BY: [place] [address] PATHOLOGIST [employer] CUCA VOGT M.D. Performed By: #### H S TROP #### [facility] [address] Basic Metabolic Panelon 05 Calcium [Mass/Vol] 8.4 mg/dL Normal 8.2-10.2 [facility] Comment on above: Performed By: #### C OVID 19 [facility], COVID-19 [place], [place] #### [facility] [address] [place] [id number] [place] Chloride [Moles/Vol] 107 mmol/L Normal 95-114 [facility] Comment on above: Performed By: #### C OVID 19 [facility], COVID-19 [place], [place] #### [facility] [address] CO2 [Moles/Vol] 24.3 mmol/L Normal 22.0-30.0 [facility] Comment on above: Performed By: #### C OVID 19 [facility], COVID-19 [place], [place] #### [facility] [address] Creatinine [Mass/Vol] 1.61 mg/dL High 0.44-1.[address] [facility] Comment on above: Performed By: #### C LINE [place] 19 [facility], COVID-19 [place], [place]FI[place] #### [facility] [address] Creatinine Clr Calc Pharmacy 34.21 [facility] Comment on above: Result Comment: PERF ORMED BY: [place] [address] PATHOLOGIST [employer] CUCA VOGT M.D. Performed By: #### C LINE [place] 19 [facility], COVID-19 [place], [place]FI[place] #### [facility] [address] Estimated GFR ( Jasmin 38 [facility] Comment on above: Result Comment: GFR estimated reference range: According to KDOQI guidelines, <60 ml/min/1.73m2 is sufficient to diagnose a patient with chronic kidney disease. Performed By: #### C LINE [place] 19 [facility], COVID-19 [place], [place]FI[place] #### [facility] [address] Estimated GFR (Non- Am 31 [facility] Comment on above: Performed By: #### C LINE [place] 19 [facility], COVID-19 [place], [place]FI[place] #### [facility] [address] Glucose [Mass/Vol] 126 mg/dL High 70-100 [facility] Comment on above: Result Comment: [place] Glucose Reference Range is dependent on time and content of last meal. Glucose of more than 200 mg/dL in a nonstressed, ambulatory subject supports the diagnosis of Diabetes Mellitus. ADA recommended reference range Performed By: #### C OVID 19 [facility], COVID-19 [place], [place]FI[place] #### [facility] [address] Potassium [Moles/Vol] 4.4 mmol/L Normal 3.5-5.[address] [facility] Comment on above: Performed By: #### C LINE [place] 19 [facility], COVID-19 [place], [place]FI[place] #### [facility] [address] Sodium [Moles/Vol] 140 mmol/L Normal 136-146 [facility] Comment on above: Performed By: #### C LINE [place] 19 [facility], COVID- [place], [place] #### [facility] [address] Urea nitrogen [Mass/Vol] 19 mg/dL Normal 9-23 [facility] Comment on above: Performed By: #### C LINE [place] 19 [facility], COVID- [place], [place] #### [facility] [address] Complete Blood Count Auto Di ffon 04-17-2022 Basophils (Bld) [#/Vol] 0.1 10*3/uL Normal 0.0-0.2 [facility] Comment on above: Result Comment: PERF ORMED BY: [place] [address] PATHOLOGIST [employer] CUCA VOGT M.D. Performed By: #### C LINE [place] 19 [facility], COVID- [place], [place] #### [facility] [address] [place] [address] [place] Basophils/100 WBC (Bld) 0.6 % Normal . [facility] Comment on above: Performed By: #### C LINE [place] 19 [facility], COVID-19 [place], SOFI[place]G #### [facility] [address] Eosinophils (Bld) [#/Vol] 0.2 10*3/uL Normal 0.0-0.45 [facility] Comment on above: Performed By: #### C LINE [place] 19 [facility], COVID-19 [place], SOFI[place]G #### [facility] [address] Eosinophils/100 WBC (Bld) 2.5 % Normal . [facility] Comment on above: Performed By: #### C LINE [place] 19 [facility], COVID-19 [place], SOFIANEG #### [facility] [address] Erythrocyte distribution width (RBC) [Ratio] 17.6 % High 11.9-15.3 [facility] Comment on above: Performed By: #### C LINE [place] 19 [facility], [facility] [place], [place] #### [address] Hematocrit (Bld) [Volume fraction] 28.4 % Low 34.0-46.4 [facility] Comment on above: Performed By: #### C LINE [place] 19 [facility], COVID-19 [place], SOFI[place] #### [address] Hemoglobin (Bld) [Mass/Vol] 9.2 g/dL Low 11.8-15.4 [facility] Comment on above: Performed By: #### C LINE [place] 19 [facility], COVID-19 [place], [place]FI[place]G #### [facility] [address] [place] [address] Lymphocytes (Bld) [#/Vol] 1.3 10*3/uL Normal 1.00-4.8 [facility] Comment on above: Performed By: #### C LINE [place] 19 [facility], COVID-19 [place], SOFI[place]G #### [address] Lymphocytes/100 WBC (Bld) 16.9 % Normal . [facility] Comment on above: Performed By: #### C LINE [place] 19 [facility], COVID-19 [place], [place]FI[place] #### [address] MCH (RBC) [Entitic mass] 25.9 pg Normal 24.7-34.3 [facility] Comment on above: Performed By: #### C OVID 19 [facility], COVID-19 [place], [place]FI[place] #### [address] MCV (RBC) [Entitic vol] 80.3 fL Normal 80-100 [facility] Comment on above: Performed By: #### C LINE [place] 19 [facility], COVID-19 [place], [place]FI[place] #### [address] Mean Corpuscular HGB Conc 32.3 g/dL Normal 32.0-35.0 [facility] Comment on above: Performed By: #### C LINE [place] 19 [facility], COVID-19 [place], [place]FI[place] #### [address] Monocytes (Bld) [#/Vol] 0.5 10*3/uL Normal 0.0-0.8 [facility] Comment on above: Performed By: #### C OVID 19 [facility], COVID-19 [place], [place]FI[place] #### [address] Monocytes/100 WBC (Bld) 5.8 % Normal . [facility] Comment on above: Performed By: #### C LINE [place] 19 [facility], COVID-19 [place], [place]FI[place] #### [facility] [address] [place] [address] Neutrophils (Bld) [#/Vol] 5.9 10*3/uL Normal 1.8-7.7 [facility] Comment on above: Performed By: #### C LINE [place] 19 [facility], COVID-19 [place], [place]FI[place] #### [address] Neutrophils/100 WBC (Bld) 74.2 % Normal . [facility] Comment on above: Performed By: #### C LINE [place] 19 [facility], COVID-19 [place], [place]FI[place] #### [address] [place] [address] [place] Nucleated RBC/100 WBC (Bld) [Ratio] 0.0 % Normal 0-0.5 [facility] Comment on above: Performed By: #### C LINE [place] 19 [facility], [facility]19 [place], [place] #### [facility] [address] Platelet mean volume (Bld) [Entitic vol] 8.0 fL Normal 6.3-10.7 [facility] Comment on above: Performed By: #### C LINE [place] 19 [facility], [place] [address] [place], SOFIANEG #### [facility] [address] Platelets (Bld) [#/Vol] 227 10*3/uL Normal 150-450 [facility] Comment on above: Performed By: #### C LINE [place] 19 [facility], [place] [address] [place], [place]FI[place]G #### [facility] [address] RBC (Bld) [#/Vol] 3.54 10*6/uL Low 3.60-5.00 [facility] Comment on above: Performed By: #### C LINE [place] 19 [facility], [facility]19 [place], [place]FI[place] #### [address] WBC (Bld) [#/Vol] 7.9 10*3/uL Normal 4.5-11.0 [facility] Comment on above: Performed By: #### C LINE [place] 19 [facility], [facility] ST[address], [place] #### [address] ECG 12 lead ECGon 04-17-2022 ECG 12 lead ECG [facility] Main [place] [address] [place] [address] Electrocardiograph Report Signed Patient: Kusum Huerta MR#: [id number] 01 : 1950 Acct:[id number] Age/Sex: 72 / F ADM Date: 04/16/22 Loc: Room: [address] [place] [address] Type: DIS IN Attending Dr: Nisha Crane MD Ordering Provider: Gabriella Contreras DO Date of Service: 04/17/22 ECG/ECG 12 lead ECG: Post Angioplasty Procedure Copies to: Test Reason : Blood Pressure : / mmHG Vent. Rate : 061 BPM Atrial Rate : 061 BPM P-R Int : 180 ms QRS Dur : 080 ms QT Int : 426 ms P-R-T Axes : 051 030 060 degrees QTc Int : 428 ms Normal sinus rhythm Poor anterior R wave progression Abnormal ECG When compared with ECG of 16-APR-2022 04:40, (Unconfirmed) No significant change was found Confirmed by TAMMY SUAREZ MD ([facility]) on 04/18/2022 3:19:42 PM Referred By: Electronically Signed By:TAMMY SUAREZ MD Transcribed By: MUS Signed By Tammy Suarez MD 0 04/18/22 1519 Normal [facility] Partial Thromboplastin Timeo n 04-17-2022 aPTT Coag (Bld) [Time] 62.4 s High 25.1-36.5 [facility] Comment on above: Result Comment: PERF ORMED BY: [place] [address] PATHOLOGIST [employer] CUCA VOGT M.D. Performed By: #### C OVID 19 [facility], COVID-19 [place], [place] #### [facility] [address] [place] [id number] [facility] aPTT Coag (Bld) [Time] 49.4 s High 25.1-36.5 [facility] Comment on above: Result Comment: PERF ORMED BY: [facility] [address] [place] [address] PATHOLOGIST [employer] CUCA VOGT M.D. Performed By: #### C OVID 19 [facility], COVID-19 [place], [place]FI[place] #### [facility] [address] [place] [phone] [place] A1C with Estimated Average G tavares 04-16-2022 Glucose [Mass/Vol] 117 mg/dL Normal [facility] Comment on above: Result Comment: PERF ORMED BY: [place] [address] PATHOLOGIST [employer] CUCA VOGT M.D. Performed By: #### C OVID 19 [facility], COVID-19 [place], [place]FI[place] #### [facility] [address] HbA1c (Bld) [Mass fraction] 5.7 % High 4.3-5.6 [facility] Comment on above: Result Comment: Incr eased risk for diabetes: 5.7 - 6.4 diabetes: >6.4 glycemic control for adults with diabetes: <7.0 Performed By: #### C OVID 19 [facility], COVID-19 [place], [place]FI[place] #### [facility] [address] B-Type Natriuretic Peptideon 04-16-2022 Natriuretic peptide B (Bld) [Mass/Vol] 204.0 pg/mL High 5-100 [facility] Comment on above: Result Comment: PERF ORMED BY: [place] [address] PATHOLOGIST [employer] CUCA VOGT M.D. Performed By: #### C OVID 19 [facility], COVID-19 [place], [place]FI[place] #### [place] [id number] [facility] Basic Metabolic Panelon 03-24 Calcium [Mass/Vol] 8.2 mg/dL Normal 8.2-10.2 [facility] Comment on above: Performed By: #### C OVID 19 [facility], COVID-19 [place], [place]FI[place] #### [facility] [address] [place] [phone] [place] Chloride [Moles/Vol] 106 mmol/L Normal 95-114 [facility] Comment on above: Performed By: #### C OVID 19 [facility], COVID-19 [place], [place]FI[place] #### [facility] [address] [place] [phone] [place] CO2 [Moles/Vol] 19.3 mmol/L Low 22.0-30.0 [facility] Comment on above: Performed By: #### C OVID 19 [facility], COVID-19 [place], [place]FI[place] #### [facility] [address] Creatinine [Mass/Vol] 1.52 mg/dL High 0.44-1.[address] [facility] Comment on above: Performed By: #### C LINE [place] 19 [facility], COVID-19 [place], [place]FI[place] #### [facility] [address] [place] [address] [place] Creatinine Clr Calc Pharmacy 36.27 [facility] Comment on above: Result Comment: PERF ORMED BY: [place] [address] PATHOLOGIST [employer] CUCA VOGT M.D. Performed By: #### C LINE [place] 19 [facility], COVID-19 [place], [place]FI[place] #### [address] Estimated GFR ( Jasmin 41 [facility] Comment on above: Result Comment: GFR estimated reference range: According to KDOQI guidelines, <60 ml/min/1.73m2 is sufficient to diagnose a patient with chronic kidney disease. Performed By: #### C LINE [place] 19 [facility], COVID-19 [place], [place]FI[place] #### [facility] [address] Estimated GFR (Non- Am 34 [facility] Comment on above: Performed By: #### C LINE [place] 19 [facility], COVID-19 [place], [place]FI[place]G #### [facility] [address] Glucose [Mass/Vol] 135 mg/dL High 70-100 [facility] Comment on above: Result Comment: [place] om Glucose Reference Range is dependent on time and content of last meal. Glucose of more than 200 mg/dL in a nonstressed, ambulatory subject supports the diagnosis of Diabetes Mellitus. ADA recommended reference range Performed By: #### C LINE [place] 19 [facility], COVID-19 [place], [place]FI[place] #### [facility] [address] Potassium [Moles/Vol] 4.4 mmol/L Normal 3.5-5.[address] [facility] Comment on above: Performed By: #### C OVID 19 [facility], COVID-19 [place], [place]FI[place] #### [facility] [address] Sodium [Moles/Vol] 135 mmol/L Low 136-146 [facility] Comment on above: Performed By: #### C OVID 19 [facility], COVID-19 [place], [place]FI[place] #### [facility] [address] Urea nitrogen [Mass/Vol] 27 mg/dL High 9-23 [facility] Comment on above: Performed By: #### C OVID 19 [facility], COVID-19 [place], [place] #### [facility] [address] Calcium [Mass/Vol] 8.3 mg/dL Normal 8.2-10.2 [facility] Comment on above: Performed By: #### B MP #### [facility] [address] [place] [address] [place] Chloride [Moles/Vol] 108 mmol/L Normal 95-114 [facility] Comment on above: Performed By: #### B MP #### [facility] [address] [place] [address] CO2 [Moles/Vol] 18.3 mmol/L Low 22.0-30.0 [facility] Comment on above: Performed By: #### B MP #### [facility] [address] [place] [address] [place] Creatinine [Mass/Vol] 1.86 mg/dL High 0.44-1.[address] [facility] Comment on above: Performed By: #### B MP #### [facility] [address] [place] [address] [place] Creatinine Clr Calc Pharmacy 29.64 Normal [facility] Comment on above: Result Comment: PERF ORMED BY: [place] [address] PATHOLOGIST [employer] CUCA VOGT M.D. Performed By: #### B MP #### [address] Estimated GFR ( Jasmin 32 [facility] Comment on above: Result Comment: GFR estimated reference range: According to KDOQI guidelines, <60 ml/min/1.73m2 is sufficient to diagnose a patient with chronic kidney disease. Performed By: #### B MP #### [address] Estimated GFR (Non- Am 27 [facility] Comment on above: Performed By: #### B MP #### [address] Glucose [Mass/Vol] 131 mg/dL High 70-100 [facility] Comment on above: Result Comment: [place] om Glucose Reference Range is dependent on time and content of last meal. Glucose of more than 200 mg/dL in a nonstressed, ambulatory subject supports the diagnosis of Diabetes Mellitus. ADA recommended reference range Performed By: #### B MP #### [address] Potassium [Moles/Vol] 4.9 mmol/L Normal 3.5-5.[address] [facility] Comment on above: Performed By: #### B MP #### [address] Sodium [Moles/Vol] 135 mmol/L Low 136-146 [facility] Comment on above: Performed By: #### B MP #### [place] [address] [place] Urea nitrogen [Mass/Vol] 31 mg/dL High 9-23 [facility] Comment on above: Performed By: #### B MP #### [address] COVID-19 Antigenon 2 COVID-19 Antigen Healthcare Worker?: N Reference Range: Negative Negative results, from patients with symptom onset beyond five days, should be treated as presumptive and confirmation with a molecular assay, if necessary, for patient management, may be performed. Negative results do not rule out COVID-19 and should not be used as the sole basis for treatment or patient management decisions, including infection control decisions. Negative results should be considered in the context of a patient's recent exposures, history and the presence of clinical signs and symptoms consistent with COVID-19. The Arlene SARS Antigen SANTIAGO does not differentiate between SARS-CoV and SARS-CoV-2. This test was developed and its performance characteristic determined by [employer] and validated at [facility]. This test has not been FDA cleared or approved. This test has been authorized by FDA under an Emergency Use Authorization (EUA). This test has been validated in accordance with the FDA's Guidance Document (Policy for Diagnostics Testing in Laboratories Certified to Perform High Complexity Testing under CLIA prior to Emergency Use Authorization for Coronavirus Disease-2019 during the Public Health Emergency) issued on February 23, 2020. This test is only authorized for the duration of time the declaration that circumstances exist justifying the authorization of the emergency use of in vitro diagnostic tests for detection of SARS-CoV-2 virus and/or diagnosis of COVID-19 infection under section 564(b)(1) of the Act, 21 U.S.C. 360bbb-3(b)(1), unless the authorization is terminated or revoked sooner. SARS-CoV+SARS-CoV-2 (COVID-19) Ag [Presence] in Respiratory specimen by Rapid immunoassay Negative for SARS Antigen by SANTIAGO PERFORMED BY: [place] [address] PATHOLOGIST [employer]BILE HOME [employer]ORER CUCA VOGT M.D. Normal [facility] Comment on above: Performed By: #### C OVID 19 [facility], COVID-19 CHELSEY JACOBSEG #### [address] [facility] SARS-CoV-2 (COVID-19) RNA REN+probe Ql (Unsp spec) Negative Normal Negative [facility] Comment on above: Order Comment: Healt hcare Worker?: N Result Comment: Testing for SARS-CoV-2 by RT-PCR This test was developed and its performance characteristics determined by [employer]) and validated at the [facility]. This test has not been FDA cleared or approved. This test has been authorized by FDA under an Emergency Use Authorization (EUA). This test has been validated in accordance with the FDA's Guidance Document (Policy for Diagnostics Testing in Laboratories Certified to Perform High Complexity Testing under CLIA prior to Emergency Use Authorization for Coronavirus Disease-2019 during the Public Health Emergency) issued on February 23, 2020. This test is only authorized for the duration of time the declaration that circumstances exist justifying the authorization of the emergency use of in vitro diagnostic tests for detection of SARS-CoV-2 virus and/or diagnosis of COVID-19 infection under section 564(b)(1) of the Act, 21 U.S.C. 360bbb-3(b)(1), unless the authorization is terminated or revoked sooner. PERFORMED BY: [place] [address] PATHOLOGIST [employer]BILE HOME LABORER CUCA VOGT M.D. Performed By: #### C OVID 19 [facility], COVID-19 ARLENE, SOFIANEG #### [address] Comprehensive Metabolic Pane guerita 04-16-2022 Albumin [Mass/Vol] 4.0 g/dL Normal 3.2-5.5 [facility] Comment on above: Performed By: #### C OVID 19 [facility], COVID-19 ARLENE, SOFIANEG #### [address] Albumin/Globulin [Mass ratio] 1.3 {ratio} Normal [facility] Comment on above: Performed By: #### C OVID 19 [facility], COVID-19 ARLENE, SOFIANEG #### [address] ALP [Catalytic activity/Vol] 157 U/L High 32-92 [facility] Comment on above: Performed By: #### C OVID 19 [facility], COVID-19 ARLENE, SOFIANEG #### [address] [place] [address] [place] ALT [Catalytic activity/Vol] 14 U/L Normal 10-60 [facility] Comment on above: Performed By: #### C OVID 19 [facility], COVID-19 ARLENE, SOFIANEG #### [facility] [address] AST [Catalytic activity/Vol] 19 U/L Normal 10-42 [facility] Comment on above: Performed By: #### C OVID 19 [facility], COVID-19 ARLENE, SOFIANEG #### [facility] [address] Bilirubin [Mass/Vol] 0.7 mg/dL Normal 0.3-1.2 [facility] Comment on above: Performed By: #### C OVID 19 [facility], COVID-19 ARLENE, SOFIANEG #### [facility] [address] Calcium [Mass/Vol] 9.2 mg/dL Normal 8.2-10.2 [facility] Comment on above: Performed By: #### C OVID 19 [facility], COVID-19 ARLENE, SOFIANEG #### [facility] [address] [place] [address] [place] Chloride [Moles/Vol] 105 mmol/L Normal 95-114 [facility] Comment on above: Performed By: #### C OVID 19 [facility], COVID-19 ARLENE, SOFIANEG #### [facility] [address] [place] [address] [place] CO2 [Moles/Vol] 16.2 mmol/L Low 22.0-30.0 [facility] Comment on above: Performed By: #### C OVID 19 [facility], COVID-19 ARLENE, SOFIANEG #### [facility] [address] [place] [address] [place] Creatinine [Mass/Vol] 2.24 mg/dL High 0.44-1.[address] [facility] Comment on above: Performed By: #### C OVID 19 [facility], COVID-19 ARLENE, SOFIANEG #### [facility] [address] Creatinine Clr Calc Pharmacy 24.73 [facility] Comment on above: Result Comment: PERF ORMED BY: [place] [address] PATHOLOGIST [employer] HOME [employer]ORER CUCA VOGT M.D. Performed By: #### C OVID 19 [facility], COVID-19 ARLENE, SOFIANEG #### [facility] [address] Estimated GFR ( Jasmin 26 [facility] Comment on above: Result Comment: GFR estimated reference range: According to KDOQI guidelines, <60 ml/min/1.73m2 is sufficient to diagnose a patient with chronic kidney disease. Performed By: #### C OVID 19 [facility], COVID-19 ARLENE, SOFIANEG #### [address] Estimated GFR (Non- Am 21 [facility] Comment on above: Performed By: #### C OVID 19 [facility], COVID-19 ARLENE, SOFIANEG #### [facility] [address] [place] [address] Globulin (S) [Mass/Vol] 3.2 g/dL [facility] Comment on above: Performed By: #### C OVID 19 [facility], COVID- ARLENE, SOFIANEG #### [address] Glucose [Mass/Vol] 141 mg/dL High 70-100 [facility] Comment on above: Result Comment: [place] Glucose Reference Range is dependent on time and content of last meal. Glucose of more than 200 mg/dL in a nonstressed, ambulatory subject supports the diagnosis of Diabetes Mellitus. ADA recommended reference range Performed By: #### C OVID 19 [facility], COVID-19 ARLENE, SOFIANEG #### [address] Potassium [Moles/Vol] 5.5 mmol/L High 3.5-5.[address] [facility] Comment on above: Performed By: #### C OVID 19 [facility], COVID-19 ARLENE, SOFIANEG #### [facility] [address] Protein [Mass/Vol] 7.2 g/dL Normal 6.1-7.9 [facility] Comment on above: Performed By: #### C OVID 19 [facility], COVID-19 ARLENE, SOFIANEG #### [facility] [address] [place] [id number] [place] Sodium [Moles/Vol] 134 mmol/L Low 136-146 [facility] Comment on above: Performed By: #### C OVID 19 [facility], COVID-19 ARLENE, SOFIANEG #### [facility] [address] Urea nitrogen [Mass/Vol] 34 mg/dL High - [facility] Comment on above: Performed By: #### C OVID 19 [facility], COVID-19 ARLENE, SOFIANEG #### [address] Creatine Kinaseon 04-16-2022 CK [Catalytic activity/Vol] 64 U/L Normal 22-269 [facility] Comment on above: Performed By: #### H S TROP #### [address] Creatinine Kinase MBon 04-16 CK.MB [Mass/Vol] 2.0 ng/mL Normal 0.6-6.3 [facility] Comment on above: Performed By: #### H S TROP #### [address] CKMB Relative Index 3.1 % High 0.00-2.50 [facility] Comment on above: Performed By: #### H S TROP #### [address] ECG 12 lead ECGon 04-16-2022 ECG 12 lead ECG [facility] Main [place] [address] [place] [address] Electrocardiograph Report Signed Patient: Kusum Huerta MR#: [id number] [birth year] : 1950 Acct:[id number] Age/Sex: 72 / F ADM Date: 04/16/22 Loc: Room: [address] [place] [address] Type: DIS IN Attending Dr: Nisha Crane MD Ordering Provider: Nisha Crane MD Date of Service: 04/16/22 ECG/ECG 12 lead ECG: prn ekg Copies to: Test Reason : Blood Pressure : / mmHG Vent. Rate : 075 BPM Atrial Rate : 075 BPM P-R Int : 180 ms QRS Dur : 090 ms QT Int : 380 ms P-R-T Axes : 049 054 085 degrees QTc Int : 424 ms Normal sinus rhythm Nonspecific ST abnormality Lateral leads Abnormal ECG When compared with ECG of 15-APR-2022 23:18, Nonspecific ST abnormality is now present Confirmed by RODERICK PORTER DO ([id number]) on 04/26/2022 8:59:14 PM Referred By: Electronically Signed By:RODERICK PORTER DO Transcribed By: MUS Signed By Roderick Porter DO 04/26 Normal [facility] ECG 12 lead ECG [facility] [place] [address] Electrocardiograph Report Signed Patient: Kusum Huerta MR#: [id number] : 1950 Acct:[id number] Age/Sex: 72 / F ADM Date: 04/16/22 Loc: Room: [address] [place] [address] Type: DIS IN Attending Dr: Nisha Crane MD Ordering Provider: Maxine Short Jr, MD Date of Service: 04/15/22 ECG/ECG 12 lead ECG: Chest Pain Copies to: Test Reason : Blood Pressure : 128/061 mmHG Vent. Rate : 074 BPM Atrial Rate : 074 BPM P-R Int : 176 ms QRS Dur : 074 ms QT Int : 382 ms P-R-T Axes : 071 019 088 degrees QTc Int : 424 ms Normal sinus rhythm ST elevation in III ST depression in I and aVL Abnormal ECG When compared with ECG of 15-APR-2022 22:26, (Unconfirmed) ST no longer depressed in v4-v6 Confirmed by MAXINE SHORT MD ([id number]) on 04/16/2022 4:40:09 AM Referred By: Electronically Signed By:MAXINE SHORT MD Transcribed By: MUS Signed By Maxine Short Jr, MD 0440 [facility] ECG 12 lead ECG [facility] Main [place] [id number] Electrocardiograph Report Signed Patient: Kusum Huerta MR#: [id number] 01 : 1950 Acct:[id number] Age/Sex: 72 / F ADM Date: 04/16/22 Loc: Room: [address] [place] [address] Type: DIS IN Attending Dr: Nisha Crane MD Ordering Provider: Maxine Short Jr, MD Date of Service: 04/15/22 ECG/ECG 12 lead ECG: Chest Pain Copies to: Test Reason : Blood Pressure : / mmHG Vent. Rate : 079 BPM Atrial Rate : 079 BPM P-R Int : 176 ms QRS Dur : 086 ms QT Int : 374 ms P-R-T Axes : 040 042 093 degrees QTc Int : 428 ms Normal sinus rhythm ST elevation in III ST depression in Lateral leads Abnormal ECG When compared with ECG of 21-OCT-2021 04:40, premature atrial complexes are no longer present ST elevation now present in III ST now depressed in Lateral leads Confirmed by MAXINE SHORT MD ([id number]) on 04/16/2022 4:38:02 AM Referred By: Electronically Signed By:MAXINE SHORT MD Transcribed By: MUS Signed By Maxine Short Jr, MD 0438 [facility] echo transthoracicon [facility] echo transthoracic [facility] Main [address] [address] Echocardiogram Signed Patient: Kusum Huerta MR#: [id number] 01 : 1950 Acct:[id number] Age/Sex: 72 / F ADM Date: 04/16/22 Loc: Room: [address] [place] [address] Type: DIS IN Attending Dr: Nisha Crane MD Ordering Provider: Shivani Etienne APRN Date of Service: 04/16/22 [facility] echo transthoracic: Chest Pain Copies to: LORRIE Rizzo MD Height: 63 in Weight: 205 lb Performed By: Ivonne Weeks RDCS BSA: 2.0 m2 BP: 102/50 mmHg HR: 69 Reason For Study: Chest Pain History: COVID, [place], HTN, Hyperlipidemia, Cancer, PCI, Family history: CAD, Former Smoker Interpretation Summary Ejection Fraction = 55-60%. The left ventricular wall motion is normal. Mild concentric left ventricular hypertrophy. A variety of Doppler measurements indicate impaired left ventricular relaxation, which is associated with grade I/IV or mild diastolic dysfunction. The aortic valve maximum pressure gradient is 25 mmHg. The aortic valve mean gradient is 15 mmHg. The aortic valve area is calculated to be 1.8 cm2. There is trace tricuspid regurgitation. The right ventricular systolic pressure is 35 mmHg. Right ventricular systolic pressure is consistent with mild pulmonary hypertension. Moderately dilated inferior vena cava There is trace mitral regurgitation. Compared to prior study, changes are noted. The mild pulmonary hypertension and dilated inferior vena cava are new. Procedure/Quality: A two-dimensional transthoracic echocardiogram with color flow and Doppler was performed. The study was technically good in quality. Left Ventricle: The left ventricular size is normal. Mild concentric left ventricular hypertrophy. Ejection Fraction = 55-60%. A variety of Doppler measurements indicate impaired left ventricular relaxation, which is associated with grade I/IV or mild diastolic dysfunction. The left ventricular wall motion is normal. Left Atrium: The left atrium appears normal in size. Right Atrium: The right atrium appears normal in size. Right Ventricle: The right ventricular size, thickness and function are normal. Aortic Valve: The aortic valve is moderately calcified. The aortic valve maximum pressure gradient is 25 mmHg. The aortic valve mean gradient is 15 mmHg. The aortic valve area is calculated to be 1.8 cm2. No aortic regurgitation is present. Mitral Valve: The mitral valve is normal in structure and function. There is trace mitral regurgitation. Tricuspid Valve: The tricuspid valve is normal in structure and function. There is trace tricuspid regurgitation. The right ventricular systolic pressure is 35 mmHg. Right ventricular systolic pressure is consistent with mild pulmonary hypertension. Pulmonic Valve: The pulmonic valve is normal in structure and function. Arteries: The aortic root is normal size. Pericardium/Pleura: No pericardial effusion seen. There is no pleural effusion. IVC/Hepatic Viens: Moderately dilated inferior vena cava. Measurements with Normals IVSd: 1.3 cm (0.7-1.1 cm)LVIDd: 3.9 cm (3.7-5.4 cm) LVPWd: 1.1 cm (0.7-1.1 cm)LVIDs: 2.6 cm (2.3-3.6 cm) LA dimension: 5.5 cm (2.3-4.0 cm)Ao root diam: 3.6 cm(2.0-3.6 cm) asc Aorta Diam: 3.5 cm(2.1-3.4cm) Doppler with Normals RVSP(TR): 34.4 mmHg (18-35mmHg) LV V1 max: 140.8 cm/sec (0.7-1.7m/s)MV E max harsh: 102.0 cm/sec(0.8-1.3m/s) MV A max harsh: 152.2 cm/sec(0.0-0.0m/s) MV E/A: 0.67 (<1.5) MMode/2D Measurements Calculations TAPSE: 2.3 cm FS: 32.8 % Ao root area: LVOT diam: 2.1 cm RV S Harsh: EDV(Teich): 10.2 cm2 LVOT area: 3.4 cm2 18.1 cm/sec 64.2 ml ESV(Teich): 24.4 ml EF(Teich): 62.0 % __ LVLd ap4: 9.3 cm SV(MOD-sp4): LAV(MOD-sp4): LA A2 area: 21.5 cm2 EDV(MOD-sp4): 63.5 ml 53.9 ml 104.0 ml LAV(MOD-sp2): LA A4 area: 20.0 cm2 LVLs ap4: 7.6 cm 58.5 ml LA length (vol): ESV(MOD-sp4): 6.0 cm 40.5 ml LA vol: 61.1 ml EF(MOD-sp4): 61.1 % LA vol index: 31.3 ml/m2 Doppler Measurements Calculations MV dec time: MV max PG: E/E' lat: 11.4 MV dec slope: 0.31 sec 100.0 mmHg E/E' med: 18.0 326.0 cm/sec2 __ Ao V2 max: LV V1 max PG: MR max harsh: TV max P.0 mmHg 251.1 cm/sec 7.9 mmHg 498.7 cm/sec Ao max PG: LV V1 mean PG: MR max P.2 mmHg 4.4 mmHg 100.0 mmHg Ao mean PG: LV V1 mean: 15.8 mmHg 99.0 cm/sec Ao V2 mean: LV V1 VTI: 29.6 cm 193.3 cm/sec Ao V2 VTI: 56.7 cm FAIZAN(I,D): 1.8 cm2 FAIZAN(V,D): 1.9 cm2 __ TR max harsh: 220.4 cm/sec TR max P.4 mmHg RAP systole: 15.0 mmHg Transcribed By: NICOL Performed At: 04/16/22 0741 Signed By: Tammy Suarez MD 04/16/22 0950 Normal [facility] Lipid Panelon 04-16-2022 Cholesterol [Mass/Vol] 90 mg/dL Low 140-200 [facility] Comment on above: Result Comment: Chol less than 200 mg/dl low risk Chol 201-239 mg/dl borderline risk Chol 240 mg/dl and greater high risk Performed By: #### C OVID 19 [facility], COVID-19 CHELSEY JACOBSEG #### [facility] [address] Cholesterol in HDL [Mass/Vol] 26 mg/dL Low 35-85 [facility] Comment on above: Result Comment: HDL CHOL ATP-III CLASSIFICATION Cardiovascular Risk HDL > or equal to 60 mg/dL LOW HDL < 40 mg/dL HIGH Performed By: #### C OVID 19 [facility], COVID-19 ARL[place], SOFIANEG #### [facility] [address] [place] [address] [place] Cholesterol.total/Cho lesterol in HDL [Mass ratio] 3.5 {ratio} Normal <5.0 [facility] Comment on above: Result Comment: PERF ORMED BY: [place] [address] PATHOLOGIST [employer] CUCA VOGT M.D. Performed By: #### C OVID 19 [facility], COVID- ARLENE, SOFIANEG #### [facility] [address] LDL Cholesterol,Calculate d 48 mg/dL Normal 0-100 [facility] Comment on above: Result Comment: LDL ATP III CLASSIFICATION LDL less than 100 mg/dL Optimal LDL 100-129 mg/dL Near or above optimal LDL 130-159 mg/dL Borderline high LDL 160-189 mg/dL High LDL greater than 189 mg/dL Very high Performed By: #### C OVID 19 [facility], COVID- ARLENE, SOFIANEG #### [facility] [address] Triglyceride w/Reflex 81 mg/dL Normal 35-[address] [facility] Comment on above: Result Comment: TRIG ATP III CLASSIFICATION TRIG less than 150 mg/dL Normal TRIG 150-199 mg/dL Borderline high TRIG 200-500 mg/dL High TRIG greater than 500 mg/dL Very high Standard traceable to the Center for Disease Conrtrol and Prevention (CDC) test method. Performed By: #### C OVID 19 [facility], COVID- ARLENE, SOFIANEG #### [facility] [address] VLDL CHOLESTEROL 16 mg/dL Normal [facility] Comment on above: Performed By: #### C OVID 19 [facility], COVID- ARLENE, SOFIANEG #### [facility] [address] [place] [id number] [place] Partial Thromboplastin Timeo n 04-16-2022 aPTT Coag (Bld) [Time] 89.2 s High 25.1-36.5 [facility] Comment on above: Result Comment: PERF ORMED BY: [place] [address] PATHOLOGIST [employer] CUCA VOGT M.D. Performed By: #### P TT #### [address] aPTT Coag (Bld) [Time] 38.0 s High 25.1-36.5 [facility] Comment on above: Order Comment: List the anticoagulant: HEPARIN, UNFRACTIONATED Result Comment: PERF ORMED BY: [place] [address] PATHOLOGIST [employer] CUCA VOGT M.D. Performed By: #### C OVID 19 [facility], COVID-19 ARL[place], SOFIANEG #### [place] [id number] [facility] aPTT Coag (Bld) [Time] 31.6 s Normal 25.1-36.5 [facility] Comment on above: Result Comment: PERF ORMED BY: [place] [address] PATHOLOGIST [employer]BI[employer] HOME LAB[employer] CUCA VOGT M.D. Performed By: #### H S TROP #### [address] Prothrombin Time INRon 04-16 INR Coag (PPP) [Relative time] 1.0 {INR} Normal [facility] Comment on above: Result Comment: INR Therapeutic Range A) Pre- and Peroperative OAT started two weeks before surgery. NOT HIP SURGERY: 1.5 - 2.5 HIP SURGERY: 2 - 3 B) Primary and secondary prevention of venous THROMBOSIS: 2 - 3 C) Active venous thrombosis, pulmonary embolism and prevention of recurrent venous thrombosis: 2 - 3 D) Prevention of arterial thromboembolism including patients with mechanical heart valves: 3 - 4.5 Performed By: #### H S TROP #### [address] PT Coag (PPP) [Time] 11.3 s Normal 9.0-12.9 [facility] Comment on above: Performed By: #### H S TROP #### [address] Scan and CBCon 04-16-2022 Basophils (Bld) [#/Vol] 0.1 10*3/uL Normal 0.0-0.2 [facility] Comment on above: Performed By: #### H S TROP #### [address] Basophils/100 WBC (Bld) 1.4 % Normal . [facility] Comment on above: Performed By: #### H S TROP #### [address] Eosinophils (Bld) [#/Vol] 0.2 10*3/uL Normal 0.0-0.45 [facility] Comment on above: Performed By: #### H S TROP #### [address] Eosinophils/100 WBC (Bld) 1.5 % Normal . [facility] Comment on above: Performed By: #### H S TROP #### [address] Erythrocyte distribution width (RBC) [Ratio] 17.9 % High 11.9-15.3 [facility] Comment on above: Performed By: #### H S TROP #### [address] Hematocrit (Bld) [Volume fraction] 36.9 % Normal 34.0-46.4 [facility] Comment on above: Performed By: #### H S TROP #### [address] Hemoglobin (Bld) [Mass/Vol] 11.7 g/dL Low 11.8-15.4 [facility] Comment on above: Performed By: #### H S TROP #### [address] Lymphocytes (Bld) [#/Vol] 2.0 10*3/uL Normal 1.00-4.8 [facility] Comment on above: Performed By: #### H S TROP #### [address] Lymphocytes/100 WBC (Bld) 19.2 % Normal . [facility] Comment on above: Performed By: #### H S TROP #### [address] MCH (RBC) [Entitic mass] 25.7 pg Normal 24.7-34.3 [facility] Comment on above: Performed By: #### H S TROP #### [address] MCV (RBC) [Entitic vol] 80.9 fL Normal 80-100 [facility] Comment on above: Performed By: #### H S TROP #### [address] Mean Corpuscular HGB Conc 31.8 g/dL Low 32.0-35.0 [facility] Comment on above: Performed By: #### H S TROP #### [place] [address] [place] Monocytes (Bld) [#/Vol] 0.5 10*3/uL Normal 0.0-0.8 [facility] Comment on above: Performed By: #### H S TROP #### [address] Monocytes/100 WBC (Bld) 4.5 % Normal . [facility] Comment on above: Performed By: #### H S TROP #### [address] Neutrophils (Bld) [#/Vol] 7.8 10*3/uL High 1.8-7.7 [facility] Comment on above: Performed By: #### H S TROP #### [address] Neutrophils/100 WBC (Bld) 73.4 % Normal . [facility] Comment on above: Performed By: #### H S TROP #### [place] [address] [place] Nucleated RBC/100 WBC (Bld) [Ratio] 0.0 % Normal 0-0.5 [facility] Comment on above: Performed By: #### H S TROP #### [address] Platelet Estimate Normal Normal Normal [facility] Comment on above: Performed By: #### H S TROP #### [address] Platelet mean volume (Bld) [Entitic vol] 8.7 fL Normal 6.3-10.7 [facility] Comment on above: Performed By: #### H S TROP #### [address] Platelet Morphology Normal Normal Normal [facility] Comment on above: Result Comment: PERF ORMED BY: [place] [address] PATHOLOGIST [employer] CUCA VOGT M.D. Performed By: #### H S TROP #### [address] Platelets (Bld) [#/Vol] 269 10*3/uL Normal 150-450 [facility] Comment on above: Performed By: #### H S TROP #### [address] RBC (Bld) [#/Vol] 4.56 10*6/uL Normal 3.60-5.00 [facility] Comment on above: Performed By: #### H S TROP #### [address] WBC (Bld) [#/Vol] 10.6 10*3/uL Normal 4.5-11.0 [facility] Comment on above: Performed By: #### H S TROP #### [address] Arlene Ag Negativeon 04-16-20 Arlene Ag Negative Negative Normal Negative [facility] Comment on above: Result Comment: This is a duplicate Arlene SARS Antigen (SANTIAGO) result to be used for statistical tracking purpose only. PERFORMED BY: [place] [address] PATHOLOGIST [employer] CUCA VOGT M.D. Performed By: #### C OVID 19 [facility], COVID-19 ARLENE, SOFIANEG #### [place] [id number] [place] Troponin I High Sensitivityo n 04-16-2022 Troponin I High Sensitivity 1946 pg/mL Off scale high 0-15 [facility] Comment on above: Result Comment: Resu lts called at 1106 on 04/16/22 PERFORMED BY: [place] [address] PATHOLOGIST [employer] CUCA VOGT M.D. Performed By: #### C OVID 19 [facility], COVID-19 ARLENE, SOFIANEG #### [place] [id number] [place] Troponin I High Sensitivity 104 pg/mL Off scale high 0-15 [facility] Comment on above: Result Comment: Resu lts called at 0439 on 04/16/22 PERFORMED BY: [place] [address] PATHOLOGIST [employer] CUCA VOGT M.D. Performed By: #### H S TROP #### [address] [address] [facility] Troponin I High Sensitivity 13 pg/mL Normal 0-15 [facility] Comment on above: Result Comment: PERF ORMED BY: [place] [address] PATHOLOGIST [employer] CUCA VOGT M.D. Performed By: #### C OVID 19 [facility], COVID19 ARLENE, SOFIANEG #### [place] [id number] [place] XR chest 1V portableon 04-16 XR chest 1V portable [facility] Main [place] [address] [place] [id number] XRay Report Signed Patient: Kusum Huerta MR#: [id number] 01 : 1950 Acct:[id number] Age/Sex: 72 / F ADM Date: 04/16/22 Loc: Room: 9T0144-6 Type: ADM IN Attending Dr: Kali Hleton MD Ordering Provider: Maxine Short Jr, MD Date of Service: 04/15/22 XR/XR chest 1V portable: Chest Pain Copies to: MD Maxine Chavis Jr, MD Plain film chestsingle view HISTORY:Midsternal chest pressure. COMPARISON:10/21/21, 06/05/20 FINDINGS:Interstitia l prominence identified. Atherosclerosis noted. The cardiac, mediastinal and hilar silhouettes are within normal limits. No acute lung process, pleural effusion or pneumothorax identified. Bony structures are intact. RIGHT lung base 5 mm nodular density unchanged from prior examination 06/05/20. XR/XR chest 1V portable IMPRESSION: No acute process. Impression dictated by: Parish Muir M.D.04/16/2022 8:37 AM Dictation Location: [place] [address] Transcribed By: [facility] 04/16/22 0837 Dictated By: Parish Muir DO 04/16/22 0835 Signed By: 04/16/22 0837 Normal [facility] COVID Quick Testingon 2020 Result Positive [employer] Other Automated blood platelet cou nt (count/volume)on 03-04-2021 Platelets (Bld) [#/Vol] 249 10*3/uL 150-450 [facility] Automated blood platelet oracio n volume measurementon 03-04-2021 Platelet mean volume (Bld) [Entitic vol] 8.2 fL 6.3-10.7 [facility] Automated erythrocyte distri bution width ratioon 03-04-2021 Erythrocyte distribution width (RBC) [Ratio] 17.4 % 11.9-15.3 [facility] Automated erythrocyte mean c orpuscular hemoglobin (mass per erythrocyte)on 03-04-2021 MCH (RBC) [Entitic mass] 27.2 pg 24.7-34.3 [facility] Automated erythrocyte mean c orpuscular hemoglobin concentration measurement (mass/volon 03-04-2021 MCHC (RBC) [Mass/Vol] 32.7 g/dL 32.0-35.0 [facility] Automated erythrocyte mean c orpuscular volumeon 03-04-2021 MCV (RBC) [Entitic vol] 83.2 fL 80-100 [facility] Blood erythrocytes automated count (number/volume)on 03-04-2021 RBC (Bld) [#/Vol] 3.83 10*6/uL 3.60-5.00 [facility] Blood hemoglobin measurement (mass/volume)on 03-04-2021 Hemoglobin (Bld) [Mass/Vol] 10.4 g/dL 11.8-15.4 [facility] Blood leukocytes automated c ount (number/volume)on 03-04-2021 WBC (Bld) [#/Vol] 9.9 10*3/uL 3.8-11.6 [facility] Body fluid albumin measureme nt (mass/volume)on 03-04-2021 Albumin (Body fld) [Mass/Vol] 3.6 g/dL 3.2-5.5 [facility] Estimated glomerular filtrat ion rate (GFR) non- Americanon 03-04-2021 GFR/1.73 sq M predicted among non-blacks MDRD (S/P/Bld) [Vol rate/Area] 27 mL/Min [facility] Hematocrit [Volume Fraction] of Blood by Automated counton 03-04-2021 Hematocrit (Bld) [Volume fraction] 31.9 % 34.0-46.4 [facility] Otheron 03-04-2021 GFR/1.73 sq M.predicted MDRD (S/P/Bld) [Vol rate/Area] 33 mL/Min [facility] Comment on above: GFR estimated refere nce range: According to KDOQI guidelines, <60 ml/min/1.73m2 is sufficient to diagnose a patient with chronic kidney disease. Pharmacy Creatinine Clearance (Chem N/A [facility] Protein [Mass/volume] in Ser um or Plasmaon 03-04-2021 Protein [Mass/Vol] 6.6 g/dL 6.1-7.9 [facility] Serum globulin measurement b y calculation (mass/volume)on 03-04-2021 Globulin (S) [Mass/Vol] 3.0 g/dL [facility] Serum or plasma alanine fleming otransferase measurement without P-5'-P (enzymatic activion 03-04-2021 ALT No additional P-5'-P [Catalytic activity/Vol] 12 U/L 10-60 [facility] Serum or plasma albumin/glob ulin mass ratioon 03-04-2021 Albumin/Globulin [Mass ratio] 1.2 {ratio} [facility] Serum or plasma alkaline greyson sphatase measurement (enzymatic activity/volume)on 03-04-2021 ALP [Catalytic activity/Vol] 155 U/L 32-92 [facility] Serum or plasma aspartate am inotransferase measurement (enzymatic activity/volume)on 03-04-2021 AST [Catalytic activity/Vol] 12 U/L 10-42 [facility] Serum or plasma calcium terence urement (mass/volume)on 03-04-2021 Calcium [Mass/Vol] 8.8 mg/dL 8.2-10.2 [facility] Serum or plasma chloride oracio surement (moles/volume)on 03-04-2021 Chloride [Moles/Vol] 104 mmol/L 95-114 [facility] Serum or plasma creatinine m easurement with calculation of estimated glomerular filtron 03-04-2021 Creatinine [Mass/Vol] 1.82 mg/dL 0.44-1.03 [facility] Serum or plasma glucose terence urement (mass/volume)on 03-04-2021 Glucose [Mass/Vol] 109 mg/dL 70-100 [facility] Comment on above: ADA recommended refe rence rangeRandom Glucose Reference Range is dependent on time and content of last meal. Glucose of more than 200 mg/dL in a nonstressed, ambulatory subject supports the diagnosis of Diabetes Mellitus. Serum or plasma potassium me asurement (moles/volume)on 03-04-2021 Potassium [Moles/Vol] 5.6 mmol/L 3.5-5.1 [facility] Serum or plasma sodium measu rement (moles/volume)on 03-04-2021 Sodium [Moles/Vol] 135 mmol/L 136-146 [facility] Serum or plasma total biliru bin measurement (mass/volume)on 03-04-2021 Bilirubin [Mass/Vol] 1.0 mg/dL 0.3-1.2 [facility] Serum or plasma total carbon dioxide measurement (moles/volume)on 03-04-2021 CO2 [Moles/Vol] 23.9 mmol/L 22.0-30.0 [facility] Serum or plasma urea nitroge n measurement (mass/volume)on 03-04-2021 Urea nitrogen [Mass/Vol] 37 mg/dL 08-15 [facility] Vital Signs Date Time Vital Sign Value Performing Clinician Facility 08-20-2023 11:08-0400 Body height 160.02 cm James Jasso [place] Work Phone: [facility] 600 DO Work Phone: 08-20-2023 11:08-0400 Body mass index (BMI) [Ratio] Medical Reason Not Done James Jasso [place] Work Phone: [facility] 600 DO Work Phone: 08-20-2023 11:08-0400 Diastolic blood pressure 52 mm[Hg] James Jasso [place] Work Phone: [facility] 600 DO Work Phone: 08-20-2023 11:08-0400 Heart rate 70 /min James Jasso [place] Work Phone: [facility] 600 DO Work Phone: 08-20-2023 11:08-0400 Systolic blood pressure 110 mm[Hg] James Jasso [place] Work Phone: [facility] 600 DO Work Phone: 04-30-2022 10:57-0400 Body height 160.02 cm James Jasso [place] Work Phone: [facility] 250 DO Work Phone: 04-30-2022 10:57-0400 Body mass index (BMI) [Ratio] 36.67 kg/m2 James Pereira Work Phone: [facility] 250 DO Work Phone: 04-30-2022 10:57-0400 Body surface area Derived from formula 1.96 m2 James Pereira Work Phone: [facility] 250 DO Work Phone: 04-30-2022 10:57-0400 Body weight 93.9 kg James Pereira Work Phone: [facility] 250 DO Work Phone: 04-30-2022 10:57-0400 Diastolic blood pressure 50 mm[Hg] James Pereira Work Phone: [facility] 250 DO Work Phone: 04-30-2022 10:57-0400 Heart rate 64 /min James Pereira Work Phone: [facility] 250 DO Work Phone: 04-30-2022 10:57-0400 Systolic blood pressure 120 mm[Hg] James Pereira Work Phone: [facility] 250 DO Work Phone: 04-16-2022 00:00-0400 60 1 Ingrid Ben DO Work Phone: [facility] 250 DO Work Phone: Comment on above: [id number] 10-12-2021 14:30-0500 Body height Maxine [place] Other [facility] Other 10-12-2021 14:30-0500 Body mass index (BMI) [Ratio] 36.61 kg/m2 Maxine [place] Other [employer] Other 10-12-2021 14:30-0500 Body temperature 98.7 [degF] Maxine Sawyer Other [employer] Other 10-12-2021 14:30-0500 Body weight 99.79 kg Maxine Sawyer Other [employer] Other 10-12-2021 14:30-0500 Diastolic blood pressure 58 mm[Hg] Maxine Sawyer Other [employer] Other 10-12-2021 14:30-0500 SaO2% (BldA) [Mass fraction] 92 % Maxine Sawyer Other [employer] Other 10-12-2021 14:30-0500 Systolic blood pressure 94 mm[Hg] Maxine Sawyer Other [employer] Other Encounters Encounter Date Encounter Type Care Provider Facility Start: 12-02-2023 End: 12-02-2023 ambulatory SHAIKH OTILIA Not Available Start: 11-25-2023 Orders Only Not In System Ref Prov [facility] Start: 11-19-2023 End: 11-24-2023 Emergency department patient visit JAMES PEREIRA [facility] Start: 11-12-2023 End: 11-12-2023 ambulatory ZENA ESPINOSA Not Available Start: 08-20-2023 Office outpatient vi sit 25 minutes James Pereira Work Phone: [facility] 600 DO Work Phone: Start: 08-20-[address] Ingrid Ibarra II Facility: Start: 12-27-2022 End: 12-27-2022 ambulatory LARA EDOUARD Facility: Start: 06-17-2022 Patient encounter procedure James Pereira Work Phone: [facility] 250 DO Work Phone: Start: 04-30-2022 Office outpatient vi sit 25 minutes James Pereira Work Phone: [facility] 250 DO Work Phone: Start: 04-22-2022 Patient encounter procedure Ingrid Contreras DO Work Phone: [facility] 250 DO Work Phone: Start: 04-16-2022 End: 04-18-2022 Evaluation and management of inpatient James Pereira Facility:[facility] Start: 10-12-2021 End: 10-12-2021 ambulatory Maxine Sawyer Other [facility] Other Start: 10-12-2021 Office outpatient vi sit 15 minutes Maxine Sawyer [facility] Start: 03-04-2021 End: 03-04-2021 Patient encounter procedure James Pereira -Lab [facility] Start: 07-22-2017 Ambulatory INGRID IBARRA Facil [id number] Procedures Date Procedure Procedure Detail Performing Clinician Start: 11-23-2023 MULTIPLE LABS Not In Sy stem Ref Prov Start: 11-23-1979 Total colonoscopy Willi am Ben DO Work Phone: Appendectomy James E Bristo l Work Phone: Arthroplasty of knee James Jasso [place] Work Phone: Cardiac catheterization Will rey Ben DO Work Phone: Cholecystectomy James E Any stol Work Phone: Hysterectomy James E Bristo l Work Phone: Removal of thrombus James Jasso [place] Work Phone: Surgical procedure o n eye proper James Jasso [place] Work Phone: Plan of Treatment Date Care Activity Detail Author Start: 12-25-2031 DTaP,Tdap and Td Vaccines (2 - Td or Tdap) DTaP,Tdap and Td Vaccines (2 - Td or Tdap) [facility] Start: 07-24-2023 Influenza vaccination Influenza Vaccine [facility] Start: 07-10-2022 FUV, Provider: Ingrid Ibarra, Status: Pen, Time: 10:50 AM FUV, Provider: Ingrid Ibarra, Status: Pen, Time: 10:50 AM [facility] 250 DO Work Phone: Start: 04-30-2022 FUV, Provider: Cristal Grant, Status: Pen, Time: 10:30 AM FUV, Provider: Cristal Grant, Status: Pen, Time: 10:30 AM [facility] 250 DO Work Phone: Start: 01-15-2022 Adult BMI Screening Adult BMI Screening [facility] Start: 2015 Fall Risk Screening Fall Risk Screening [facility] Start: 2000 Administration of varicella zoster vaccine Zoster (Shingles) Vaccine (1 of 2) [facility] Start: 1962 Depression Screening Depression Screening [facility] Start: 1962 Tobacco Screening Tobacco Screening [facility] Start: 1950 Medicare Annual Wellness Visit Medicare Annual Wellness Visit [facility] Immunizations Immunization Date Immunization Notes Care Provider Grover cintron 12-25-2021 tetanus toxoid, redu zak diphtheria toxoid, and acellular pertussis vaccine, adsorbed James E [place] Work Phone: [facility] 250 DO Work Phone: 09-11-2020 influenza virus vacc ine, unspecified formulation James E [place] Work Phone: [facility] 250 DO Work Phone: 09-08-2020 Fluzone QIV High-Dos e 65YR+ James [facility] 09-08-2020 influenza virus vacc ine, unspecified formulation Not Ref Prov [facility] 10-14-2019 influenza, high dose seasonal, preservative-free James [facility] 07-24-2017 pneumococcal polysaccharide vaccine, 23 valent Sawyer E [place] Work Phone: -[facility] 250 DO Work Phone: 08-28-2015 influenza, high dose seasonal, preservative-free James Pereira Work Phone: [facility] 250 DO Work Phone: influenza virus vacc ine, unspecified formulation [facility] Pereira [facility]: [facility] Work Phone: Comment on above: Aug 20122012 Payers Date Payer Category Payer Medicare [employer] MED[employer]ARE UHC MEDICARE ADVANTAGE PPO [id number] 2023-Present [phone] [address] [address] [place] [address] [id number] 2023 Private Health Insurance [id number] 2022 Medicare [id number] 2022 Private Health Insurance [id number] 2022 Self-pay [id number] 1959 Private Health Insurance [id number] 1950 Unknown [id number] 1950 Unknown [id number] 1950 Unknown [id number] 1950 Unknown [id number] 1950 Unknown [id number] Private Health Insurance [id number] Unknown [employer] Unknown [id number] Social History Date Type Detail Facility Start: 07-05-2018 End: 10-02-2020 Tobacco smoking status NHIS Ex-smoker (finding) [facility] Work Phone: Start: 1950 Sex Assigned At Female F [facility] Start: 12-18-2020 End: 01-15-2021 No illicit drug use No illicit drug use [facility] 250 DO Work Phone: Comment on above: Quit 1993; 4 cups tea daily; Start: 12-18-2020 End: 01-15-2021 Sex Assigned At [facility] Other History of tobacco use Current smoker [facility] Start: 07-05-2018 Tobacco use and exposure Smokeless [facility] Start: 01-15-2021 Alcohol intake Current non-dr putty remover of alcohol (finding) [facility] Inst[facility] [address] [facility] Start: 1950 Sex Assigned At Not on file P [employer] Medical Equipment Procedure Code Equipment Code Equipment Original Text Equipment Identifier Dates [facility] Start: 10-13-2019 [id number] [facility] Start: 10-13-2019 Goals Date Patient Goal Desired Activity /State Clinical Note 12-27-2022 Note Date & Type Note Facility 12-27-2022 Note PROCEDURE: XR HAND L T MIN 3V, XR WRIST LT MIN 3 V, 12/27/2022 2:41 PM EST CLINICAL INDICATIONS: Traumatic injury, fall, left wrist and hand pain COMPARISON: None TECHNIQUE: Left wrist 3 views. Left hand 3 views. FINDINGS: LEFT WRIST: Generalized osteopenia the bony structures is noted. Acute closed traumatic intra-articular fracture through the distal radius is identified. There is volar radial displacement of the radial styloid fragment. Articular margin is near congruent. Ulnar plus variance noted. Subtle ossific irregularity the dorsal carpal level is noted. Triquetral avulsion fracture not excluded. 0.4 cm scapholunate dissociation is evident. Distal radioulnar, carpometacarpal osteoarthrosis is seen. Generalized soft tissue swelling is present. Chondrocalcinosis triangular fibrocartilage level noted. LEFT HAND: Generalized osteopenia of the bony structures is noted. Acute fracture or malalignment is not evident. First and second metacarpophalangeal osteoarthrosis with volar subluxation is seen. Moderate to severe interphalangeal osteoarthrosis is noted. Generalized soft tissue swelling is present. IMPRESSION: 1. Acute closed traumatic intra-articular distal radius fracture with volar radial distraction of the radial styloid fragment. Articular margin is near congruent. Ulnar plus variance seen. 2. Subtle ossific irregularity of the dorsal carpal level. Triquetral avulsion fracture age undetermined not excluded 3. Mild scapholunate dissociation 4. Osteoarthrosis 5. Generalized soft tissue swelling with chondrocalcinosis 6. Osteopenia, osteoarthrosis of the hand without acute traumatic osseous pathology 7. Soft tissue swelling the wrist and hand Electronically authenticated by: RODERICK ESTRELLA Date: 2022-12-27 15:58 [facility] Clinical Note 12-27-2022 Note Date & Type Note Facility 12-27-2022 Note PROCEDURE: XR HAND L T MIN 3V, XR WRIST LT MIN 3 V, 12/27/2022 2:41 PM EST CLINICAL INDICATIONS: Traumatic injury, fall, left wrist and hand pain COMPARISON: None TECHNIQUE: Left wrist 3 views. Left hand 3 views. FINDINGS: LEFT WRIST: Generalized osteopenia the bony structures is noted. Acute closed traumatic intra-articular fracture through the distal radius is identified. There is volar radial displacement of the radial styloid fragment. Articular margin is near congruent. Ulnar plus variance noted. Subtle ossific irregularity the dorsal carpal level is noted. Triquetral avulsion fracture not excluded. 0.4 cm scapholunate dissociation is evident. Distal radioulnar, carpometacarpal osteoarthrosis is seen. Generalized soft tissue swelling is present. Chondrocalcinosis triangular fibrocartilage level noted. LEFT HAND: Generalized osteopenia of the bony structures is noted. Acute fracture or malalignment is not evident. First and second metacarpophalangeal osteoarthrosis with volar subluxation is seen. Moderate to severe interphalangeal osteoarthrosis is noted. Generalized soft tissue swelling is present. IMPRESSION: 1. Acute closed traumatic intra-articular distal radius fracture with volar radial distraction of the radial styloid fragment. Articular margin is near congruent. Ulnar plus variance seen. 2. Subtle ossific irregularity of the dorsal carpal level. Triquetral avulsion fracture age undetermined not excluded 3. Mild scapholunate dissociation 4. Osteoarthrosis 5. Generalized soft tissue swelling with chondrocalcinosis 6. Osteopenia, osteoarthrosis of the hand without acute traumatic osseous pathology 7. Soft tissue swelling the wrist and hand Electronically authenticated by: RODERICK ESTRELLA Date: 2022-12-27 15:58 [facility] Evaluation note 10-12-2021 Note Date & Type Note Facility 10-12-2021 Evaluation note Encounter Date Diagnosis Assessment Notes Sep, Contact with and (suspected) exposure to other viral communicable diseases (ICD-10 - Z20.828) Sep, COVID-19 virus infection (ICD-10 - U07.1) Today you tested positive for the COVID virus. This mean you need to follow all CDC quarantine guidelines found at coronavirus.[place].gov. It is important to rest, increase fluids, and stay at home. Contact PCP and inform them of results. Medications like Mucinex, Cepacol, Tylenol, saline nasal spray are over the counter medications that can help with the symptoms. Current guidelines include staying home for at least 10 days, having no fever above 100.4 for 24 hours without medication and having significant improvement of symptoms before you are allowed to stop your quarantine. Contact primary care and ask for guidance is essential to follow up. Due to patient's age, I feel she would benefit from a more aggressive tx approach. Discussed wiht her the risks vs benefits of a z pack, albuterol, and prednisone. I also advised her to call her pcp as she would be a good candidate for monoclonal antibibody infusion. Pt understands and would like to take the medication. She understands and agrees with the plan. Sep, Other Additional time spent conducting pre-visit phone call, screening for symptoms, instructions on social distancing, application and removal of PPE, and cleaning of examination room, equipment and supplies was preformed. Patient education given for testing methodology and results. Patient care instructions given in writting by [facility] document. [employer] Other History general Narrative - Reported Note Date & Type Note Facility History general Narrative - Reported Type Medical History hypertension Medical History chronic kidney disease stage 3 Surgical History gall bladder Surgical History appendectomy Surgical History knee replacement, left Surgical History HEART CATH WITH STENT PLACEMENT X1 Hospitalization History see above Hospitalization History URINARY TRACT INFECTION 05/2020 Hospitalization History BLOOD PRESSURE ISSUES [employer] Other History of Present illness Narrative Note Date & Type Note Facility History of Present illness Narrative The patient states she has been generally doing well since the last visit. Comorbid Illnesses: hypertension and hyperlipidemia.Symptoms: denies chest pain at rest, resolved exertional chest pain, denies dyspnea, denies fatigue, stable exercise intolerance, denies palpitations, denies edema, denies orthopnea, denies dizziness and denies orthostatic dizziness.Associated symptoms: no syncope.Her symptoms do not limit her activities.Disease Monitoring: The patient has had a stable weight.Medications: the patient is adherent with her medication regimen. She denies medication side effects. [facility] 250 DO Work Phone: History of Present illness Narrative Note Date & Type Note Facility History of Present illness Narrative Returns in follow-up of problems as noted. In the interim she is done well. A long detailed discussion ensued regarding antiplatelet therapy. It was Dr. Contreras's original recommendation that she be on Effient or Brilinta. She could not tolerate Brilinta and was unintentionally switch back to Plavix. Today we will switch to prasugrel as per his original recommendationShe is having some problems with low blood pressure and because of this adjustments in therapy will be made with a reduction in antihypertensive therapy. Also some edema and because of this a small dose of Lasix is added. She was educated regarding symptoms to watch for and she will call if they arise but otherwise she will continue as before. Merits of diet and weight loss were again advocated. [facility] Work Phone: Instructions Note Date & Type Note Facility Instructions Not on filedocumented in this en counter [facility] Summary Purpose Family History No Family History Records Found Relationship Condition Age at Onset Recorded Date/T xiao Not Specified Heart disease Unknown Chronic obstructive pulmonary disease Unk nown father Heart disease Unknown History of heart surgery Unknown Unknown Family Member Name Dates Details Family history of arterioscl erotic cardiovascular disease: Mother, Father, Sister(V17.49, Z82.49) Status:Active Unknown Family Member Name Dates Details Family history of arterioscl erotic cardiovascular disease: Mother, Father, Sister(V17.49, Z82.49) Status:Active Unknown Family Member Name Dates Details Family history of arterioscl erotic cardiovascular disease: Mother, Father, Sister(V17.49, Z82.49) Status:Active Advance Directives No Advanced Directives Records Found Advance Directive Response Recorded Date/ Time Advance Directives No April 22 8 8:16am Chief Complaint and Reason for Visit Chief Complaint See order Assessments No Assessments Information Available Chief Complaint * Seem to be doing good * KUSUM HUERTA is being seen for follow-up of a hospitalization for chest pain. * Patient was recently hospitalized at [facility]. The patient was seen in Cardiology consult with subsequent cardiovascular management by [facility]. Hospitalization records have been reviewed. * Reason for Cardiology Consultation: ACS * Consulting Remote Sensing Surveyor: Dr. Contreras * Cardiovascular testing: cardiac cath with PCI, Echo * Changes to cardiovascular medical regimen at time of discharge: Brilinta, lipitor increased, valsartan * Discharge disposition: home * Presented with chest pain - no additional. * Prior to admit - fatigue for one week then acute chest pain while folding laundry. * New Medications: * Brilinta - no shortness of breath, has insurance coverage * Increased atorvastatin - no myalgia * Valsartan - no repeat labs, BP at home optimal * Right radial cath site healed without adverse sequelae. * Daily activity: stairs at home, ambulatory with cane. * Cardiac Rehab - willing to attend. * Only on ASA at time of admit - DAPT indefinitely and recalls conversation with Dr. Contreras inpt. KUSUM HUERTA is being seen for an annual follow-up of. Additional Source Comments INFORMATION SOURCE (unrecogn ized section and content) DATE CREATED AUTHOR 05/19/2018 [facility] DATE CREATED AUTHOR AUTHOR'S ORGANIZ ATION 12/27/2022 [facility] DATE CREATED AUTHOR AUTHOR'S ORGANIZ ATION 12/29/2022 [facility] DATE CREATED AUTHOR AUTHOR'S ORGANIZ ATION 08/28/2023 [employer] DATE CREATED AUTHOR AUTHOR'S ORGANIZ ATION 10/07/2023 [facility] DATE CREATED AUTHOR AUTHOR'S ORGANIZ ATION 11/24/2023 [facility] DATE CREATED AUTHOR AUTHOR'S ORGANIZ ATION 12/04/2023 [facility] EPIC REASON FOR VISIT (unrecogniz ed section and content) #13 NOT VACCINATED, NO POS C OVID EXP, COUGH, CONGESTION, FEVER Care Teams (unrecognized sec tion and content) [employer] Relationship Specialty Start Date End Date James Pereira DO [address] [place] [address] PCP - General 06/30/18 FOR RECORDS PERTAINING TO PATIENTS WHO ARE OR HAVE BEEN ENROLLED IN A CHEMICAL DEPENDENCY/SUBSTANCEABUSE PROGRAM, SOME INFORMATION MAY BE OMITTED. This clinical summary was aggregated from multiple sources. Caution should be exercised in using it in the provision of clinical care. This summary normalizes information from multiple sources, and as a consequence, information in this document may materially change the coding, format and clinical context of patient data. In addition, data may be omitted in some cases. CLINICAL DECISIONS SHOULD BE BASED ON THE PRIMARY CLINICAL RECORDS. [employer] provides no warranty or guarantee of the accuracy or completeness of information in this document.
[2023-12-08 12:59] LABS: Basophils Absolute Auto 0.1 10^3/uL (0.0-0.1); Basophils Percent Auto 0.6 % (0.2-2.0); Eosinophils Absolute Auto 0.2 10^3/uL (0.0-0.7); Eosinophils Percent Auto 2.1 % (0.9-7.0); Hematocrit 33.1 % (36.0-48.0); Hemoglobin 9.7 g/dL (12.0-16.0); Immature Granulocytes Abs Auto 0.05 10^3/uL (0.00-0.03); Immature Granulocytes Pct Auto 0.6 % (0.0-0.5); Lymphocytes Absolute Auto 0.7 10^3/uL (1.2-3.8); Lymphocytes Percent Auto 8.4 % (20.5-60.0); Mean Corpuscular HGB Conc 29.3 g/dL (29.9-35.2); Mean Corpuscular Hemoglobin 26.9 pg (26.7-34.0); Mean Corpuscular Volume 91.7 fL (81.0-99.0); Monocytes Absolute Auto 0.9 10^3/uL (0.3-0.8); Monocytes Percent Auto 9.8 % (1.7-12.0); Neutrophils Absolute Auto 6.8 10^3/uL (1.4-6.5); Neutrophils Percent Auto 78.5 % (43.0-75.0); Platelet Count 176 10^3/uL (150-450); Red Blood Count 3.61 10^6/uL (4.20-5.40); Red Cell Distribution Width 16.3 % (11.0-15.0); White Blood Count 8.7 10^3/uL (4.0-11.0)
[2023-12-08 13:21] LABS: Lactate Dehydrogenase 199 U/L (81-234)
[2023-12-09 13:08] LABS: PTH, Intact 189 pg/mL (15-65)
[2023-12-09 16:10] LABS: Albumin 3.2 g/dL (2.9-4.4); Alpha-1-Globulin 0.4 g/dL (0.0-0.4); Alpha-2-Globulin 0.9 g/dL (0.4-1.0); Free Kappa Lt Chains,S 35.7 mg/L (3.3-19.4); Free Lambda Lt Chains,S 33.8 mg/L (5.7-26.3); Gamma Globulin 0.7 g/dL (0.4-1.8); Immunoglobulin A, Qn, Serum 188 mg/dL (64-422); Immunoglobulin G, Qn, Serum 726 mg/dL (586-1602); Immunoglobulin M, Qn, Serum 55 mg/dL (26-217); Kappa/Lambda Ratio,S 1.06 (0.26-1.65)
[2023-12-10 21:07] LABS: Immunoglobulin E, Total 13 IU/mL (6-495)
== END 2023-12-08 11:57 | disposition home or self-care (01) ==
LOC: LAB 12:00
PROVIDERS: PCP Internal Medicine; Visit Provider Internal Medicine Hematology & Oncology
DX: D64.9 Anemia, unspecified (principal)
CPT/HCPCS: 82607; 82728; 82746; 82784; 82785; 83521; 83540; 83550; 83615; 83970; 84155; 84165; 85025; 86334

== ENCOUNTER 2023-12-12 10:24 | Emergency (ER) | payer MEDICARE, SELFPAY ==
[2023-12-12] VITALS (20 sets, daily range): BP systolic 143–175; BP diastolic 56–76; PULSE 64–83; RESP 16–23; TEMP 36.9; O2SAT 83–98; BMI 37.3
--- NOTE | 2023-12-12 10:50 | PC.NURSE ---
Arrives with pulse OX. 84-85% on room air, oxygen initiated at 2 LPM/NC and pulse ox. up to 93%. Patient reports she has home oxygen for as needed use.
--- NOTE | 2023-12-12 10:53 | ECG_ITS ---
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
--- NOTE | 2023-12-12 10:58 | CT_ITS ---
The [address] [address] Patient Name: BELLE JEONG MRN: [id number] date: 1950 Sex: F Assigned Patient Location: ER Current Patient Location: ER Accession/Order Number: [id number] Exam Date: 12/12/2023 11:30 Report Date: 12/12/2023 12:22 At the request of: HUSEYIN SOTOMAYOR Procedure: CT head/brain wo con Study: CT head/brain wo con HISTORY: bilateral LE weakness, difficulty ambulating Technique: CT images of the head were acquired without intravenous contrast. Dose reduction technique used: Automatic exposure control and/or adjustment of the mA and/or kV according to patient size and/or use of degenerative reconstruction technique. Comparisons: CT head without contrast 11/18/2023. CT lumbar spine 11/18/2023. Findings: BRAIN PARENCHYMA: No acute hemorrhage. No mass effect or herniation. Territorial loss of buck-white matter differentiation. There are atherosclerotic calcifications at the carotid siphons. VENTRICLE/EXTRA-AXIAL SPACES: No hydrocephalus or abnormal extra-axial fluid collections. EXTRACRANIAL STRUCTURES: Skeletal structures appear osteopenic. Permeative appearance of the calvarium includes numerous scattered lucencies, suspicious for a underlying neoplastic process. Extracranial soft tissues appear normal. Mastoid air cells are well aerated. ORBITS: Normal. PARANASAL SINUSES: Normal. CT/CT head/brain wo con IMPRESSION: 1. Permeative appearance of the calvarium may partially reflect underlying osseous demineralization. An infiltrative neoplastic process to include but not limited to multiple myeloma may have a similar appearance. Recommend clinical correlation. 2. No acute intracranial process identified. MRI may be more sensitive, particularly for evaluation for acute ischemia, if a persistent clinical concern exists. These results were discussed with Dr. Sotomayor by Dr. Britton 12:17 PM EST, 12/20/2023. Electronically authenticated by: NIXON BRITTON Date: 12/12/2023 12:22
--- NOTE | 2023-12-12 10:59 | ED_ITS ---
HPI - Weakness General Chief complaint: Weakness Stated complaint: GENERAL WEAKNESS Time Seen by Provider: 12/12/23 10:35 Source: patient Mode of arrival: ambulance Limitations: physical limitation History of Present Illness HPI Narrative: Patient describes increasing generalized weakness over the last few days. Last night she was too weak to get out of bed and this morning called 911 to bring her to the ED for evaluation. She was incotninent of urine because I could not get to the bathroom. No fever, chills, cough, chest pain or shortness of breath. She told me that she sleeps in a recliner for the last 2 years ever since I got Covid . Chart review - the patient was admitted to [facility] the end of October for anemia, CHF and polyneuropathy with weakness. She received blood transfusion and later responded to IV steroids - her strength improved and she was able to walk and eventually go home around Nov 23. She was on a 12 day tapered course of prednisone. She said she had been doing well since getting home from the hospital, until last week. Related Data Home Medications Medication Instructions Recorded Confirmed buprenorphine 8 mg-naloxone 2 mg 1.5 film sublingual Q24H 08/15/23 12/12/23 sublingual film metoprolol tartrate 25 mg tablet 25 mg PO Q12H 08/15/23 12/12/23 naloxone 4 mg/actuation nasal 1 spray intranasal Q3M PRN opioid 08/15/23 11/18/23 spray (Narcan) overdose valsartan 80 mg tablet 80 mg PO DAILY 08/15/23 12/12/23 amlodipine 5 mg tablet 5 mg PO DAILY 11/18/23 12/12/23 furosemide 20 mg tablet 20 mg PO DAILY 11/18/23 12/12/23 prasugrel 10 mg tablet 10 mg PO DAILY 11/18/23 12/12/23 albuterol sulfate 90 mcg/actuation inhalation 12/12/23 aerosol inhaler Previous Rx's Medication Instructions Recorded ferrous sulfate 325 mg (65 mg 325 mg PO DAILY 30 days #30 tabs 08/18/23 iron) tablet (Iron (ferrous sulfate)) spironolactone 25 mg tablet 25 mg PO QD 30 days #30 tabs 08/18/23 gabapentin 100 mg capsule 100 mg PO TID #90 caps 11/23/23 prednisone 10 mg tablets in a dose 10 mg PO DAILY #39 ea 11/23/23 pack cephalexin 500 mg capsule 500 mg PO BID 7 days #14 caps 12/12/23 methylprednisolone 4 mg tablets in 4 mg PO DAILY #21 ea 12/12/23 a dose pack (Medrol (David)) Allergies Allergy/AdvReac Type Severity Reaction Status Date / Time No Known Drug Allergies Allergy Verified 12/12/23 10:29 [facility] Medical History (Updated 12/12/23 @ 12:52 by Ok Barreto) Lumbar degenerative disc disease ?M51.36 - Other intervertebral disc degeneration, lumbar region (ICD-10) Stage 3a chronic kidney disease (CKD) ?N18.31 - Chronic kidney disease, stage 3a (ICD-10) Opioid use disorder in remission ?F11.91 - Opioid use, unspecified, in remission (ICD-10) Acute on chronic diastolic heart failure ?I50.33 - Acute on chronic diastolic (congestive) heart failure (ICD-10) Hypoxia ?R09.02 - Hypoxemia (ICD-10) COPD (chronic obstructive pulmonary disease) ?J44.9 - Chronic obstructive pulmonary disease, unspecified (ICD-10) Iron deficiency anemia ?D50.9 - Iron deficiency anemia, unspecified (ICD-10) CAD (coronary atherosclerotic disease) ?I25.10 - Atherosclerotic heart disease of [place] coronary artery without angina pectoris (ICD-10) Hypertension ?I10 - Essential (primary) hypertension (ICD-10) Neuropathy ?G62.9 - Polyneuropathy, unspecified (ICD-10) Anemia requiring transfusions ?D64.9 - Anemia, unspecified (ICD-10) Acute on chronic congestive heart failure ?I50.9 - Heart failure, unspecified (ICD-10) CKD (chronic kidney disease) stage 3, GFR 30-59 ml/min ?N18.30 - Chronic kidney disease, stage 3 unspecified (ICD-10) Chronic respiratory failure with hypoxia ?J96.11 - Chronic respiratory failure with hypoxia (ICD-10) Melanoma ?C43.9 - Malignant melanoma of skin, unspecified (ICD-10) History of illicit drug use ?F19.91 - Other psychoactive substance use, unspecified, in remission (ICD- 10) Kidney disease ?N28.9 - Disorder of kidney and ureter, unspecified (ICD-10) CHF (congestive heart failure) ?I50.9 - Heart failure, unspecified (ICD-10) Heart attack ?I21.9 - Acute myocardial infarction, unspecified (ICD-10) Anemia ?D64.9 - Anemia, unspecified (ICD-10) Anemia ?D64.9 - Anemia, unspecified (ICD-10) CHF (congestive heart failure) ?I50.9 - Heart failure, unspecified (ICD-10) Surgical History H/O: hysterectomy ?Z90.710 - Acquired absence of both cervix and uterus (ICD-10) History of cholecystectomy ?Z90.49 - Acquired absence of other specified parts of digestive tract (ICD- 10) History of total left knee replacement ?Z96.652 - Presence of left artificial knee joint (ICD-10) Hx of appendectomy ?Z90.49 - Acquired absence of other specified parts of digestive tract (ICD- 10) History of heart artery stent ?Z95.5 - Presence of coronary angioplasty implant and graft (ICD-10) Family History Father Family history of CHF (congestive heart failure) Family history of diabetes mellitus Family history of hypertension Sister Family history of myocardial infarction Family history of hypertension Mother Family history of COPD (chronic obstructive pulmonary disease) Family history of hypertension Daughter Family history of diabetes mellitus Social History Within the past year, how often did you have a drink containing alcohol: never Within the past year, how many standard drinks containing alcohol did you have on a typical day: 1 or 2 Within the past year, how often did you have six or more drinks on one occasion: never Total score: 0 Score interpretation: A score less than 3 is consistent with normal alcohol consumption. Smoking status: Former smoker Non-prescribed substance use: former substance user, amphetamines/methamphetamines and opiods/painkillers Non-prescribed substance use details: states has been clean for 6 months Previous occupational history: Retired Known occupational exposures/hazards: No Highest level of school completed/degree received: high school graduate Are you now , , , , never or living with a partner: In a typical week, how many times do you talk on the telephone with family, friends, or neighbors: 3 or more times per week How often do you get together with friends or relatives: 3 or more times per week How often do you attend adventist or advent services: never Do you belong to any clubs or organizations such as adventist groups unions, fraternal or athletic groups, or school groups: no Total score: 1 Score interpretation: A score of less than or equal to 1 indicates the most socially isolated. Little interest or pleasure in doing things: not at all Feeling down, depressed, or hopeless: not at all Feel stressed/tense/nervous/anxious/difficulty sleeping: not at all Gender Identity: female Exam Narrative Exam Narrative: Nurses notes and vital signs reviewed and patient IS hypoxic - 84% on room air. She wears home O2 prn. afebrile General: Well-appearing and in no apparent distress. Skin: Warm, dry, no pallor noted. No rash. Head: Normocephalic, atraumatic. Neck: Supple, non-tender. Eye: Pupils are equal, round and EOMI. No scleral icterus. Ears, Nose, Mouth, and Throat: Oral mucosa is moist Cardiovascular: Regular Rate and Rhythm without murmur, gallop or rub. Respiratory: No accessory muscle use or respiratory distress. Lungs are clear to auscultation, no wheezing, rales or rhonchi Back: No midline thoracic or lumbar vertebral tenderness. No CVA tenderness Musculoskeletal: No sign of UE or LE injury. UEs with normal ROM. Able to move both LEs as long as she keeps the heel on the be for support. No calf or popliteal tenderness, no lower extremity edema/swelling GI: Abdomen is soft, non-distended. Normal bowel sounds. No masses appreciated. No tenderness to palpation. No rebound, guarding, or rigidity noted. Neurological: A&O x4. No cranial nerve dysfunction observed. No truncal ataxia. Moves all extremities but has to keep the heels on the bed in order to move the legs. UE sensation intact. LEs with decreased sensation on outside of both thighs. Psychiatric: Cooperative and interactive. Normal mood and affect. Constitutional Vital Signs, click to edit/add: Last Vital Signs Temp 98.4 F 12/12/23 10:26 Pulse 76 12/12/23 12:56 Resp 20 12/12/23 12:56 BP 150/73 H 12/12/23 12:56 Pulse Ox 95 12/12/23 12:56 O2 Del Method Nasal Cannula 12/12/23 11:21 O2 Flow Rate 2 12/12/23 11:41 Course Vital Signs Vital signs: Vital Signs Temperature 98.4 F 12/12/23 10:26 Pulse Rate 83 12/12/23 10:26 Respiratory Rate 20 12/12/23 10:26 Blood Pressure 168/76 H 12/12/23 10:26 Pulse Oximetry 85 L 12/12/23 10:26 Oxygen Delivery Method Room Air 12/12/23 10:26 Temperature 98.4 F 12/12/23 10:26 Pulse Rate 76 12/12/23 12:56 Respiratory Rate 20 12/12/23 12:56 Blood Pressure 150/73 H 12/12/23 12:56 Pulse Oximetry 95 12/12/23 12:56 Oxygen Delivery Method Nasal Cannula 12/12/23 11:21 Oxygen Delivery Flow Rate 2 12/12/23 11:41 MDM - Weakness MDM Narrative Medical decision making narrative: 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 Blood drawn and sent for evaluation. She was ordered to undergo noncontrast head CT since she is complaining of leg weakness. When she arrived she had urinary incontinence and her clothing was foul- smelling. Urine was obtained and sent for testing as well, to rule out acute urinary tract infection. She was given IV Solu-Medrol. Radiologist contacted me - she notes diffuse osteoporosis but also has concerns that some of the findings on head CT might indicate a diagnosis of multiple myeloma, which might account for the patient's recent anemia that required blood transfusion. Patient informed of her results including her UA revealing UTI. She is able to move her legs much better and her weakness has decreaed after the NS IVF and IV Solumedrol dose. Patient would like to go home. I prescribed keflex 500 BID for the UTI and a tapered steroid pack as well. She will se her PCP, Dr Serna, for follow up. Lab Data Attestation: I reviewed the patient's lab results. Labs: Lab Results 12/12/23 12/12/23 Range/Units 10:53 11:10 WBC 6.2 (4.0-11.0) 10^3/uL RBC 3.39 L (4.20-5.40) 10^6/uL Hgb 9.2 L (12.0-16.0) g/dL Hct 31.0 L (36.0-48.0) % MCV 91.4 (81.0-99.0) fL MCH 27.1 (26.7-34.0) pg MCHC 29.7 L (29.9-35.2) g/dL RDW 15.7 H (11.0-15.0) % Plt Count 203 (150-450) 10^3/uL MPV 9.6 (9.5-13.5) fL Neut % (Auto) 82.4 H (43.0-75.0) % Lymph % (Auto) 6.1 L (20.5-60.0) % [place] % (Auto) 7.6 (1.7-12.0) % Eos % (Auto) 1.9 (0.9-7.0) % Baso % (Auto) 1.0 (0.2-2.0) % Neut # (Auto) 5.1 (1.4-6.5) 10^3/uL Lymph # (Auto) 0.4 L (1.2-3.8) 10^3/uL [place] # (Auto) 0.5 (0.3-0.8) 10^3/uL Eos # (Auto) 0.1 (0.0-0.7) 10^3/uL Baso # (Auto) 0.1 (0.0-0.1) 10^3/uL Abs Immat Gran (auto) 0.06 H (0.00-0.03) 10^3/uL Imm/Tot Granulo (auto) 1.0 H (0.0-0.5) % Sodium 141 (136-145) mmol/L Potassium 5.5 H (3.5-5.1) mmol/L Chloride 105 (98-107) mmol/L Carbon Dioxide 25.9 (21.0-32.0) mmol/L Anion Gap 15.6 BUN 47.0 H (7.0-18.0) mg/dL Creatinine 1.83 H (0.55-1.02) mg/dL Est GFR ( Amer) 33 L (>=60) Est GFR (Non-Af Amer) 27 L (>=60) BUN/Creatinine Ratio 25.7 Glucose 110 H (74-106) mg/dL Calcium 8.7 (8.5-10.1) mg/dL Total Bilirubin 0.7 (0.2-1.0) mg/dL AST 12 L (15-37) U/L ALT 20 (14-59) U/L Alkaline Phosphatase 105 (46-116) U/L Troponin I High Sens 25.0 (4.0-51.3) pg/mL NT-Pro-B Natriuret Pep 3817.0 H* (<=900.0) pg/mL Total Protein 6.9 (6.4-8.2) g/dL Albumin 2.6 L (3.4-5.0) g/dL Globulin 4.3 g/dL Albumin/Globulin Ratio 0.6 Urine Color Lt. yellow (YELLOW) Urine Clarity Sl cloudy (CLEAR) Urine pH 7.0 (5.0-9.0) Ur Specific [place] 1.010 (1.005-1.025) Urine Protein 30 A (NEG/TRACE) mg/dL Urine Glucose (UA) Negative (NEGATIVE) mg/dL Urine Ketones Negative (NEGATIVE) mg/dL Urine Occult Blood Small A (NEGATIVE) Urine Nitrite Positive A (NEGATIVE) Urine Bilirubin Negative (NEGATIVE) Urine Urobilinogen 1.0 (0.2-1.0) EU/dL Ur Leukocyte Esterase Moderate A (NEGATIVE) Urine RBC 5-10 A (0-2) #/HPF Urine WBC 20-50 A (NONE SEEN) #/HPF Ur Squamous Epith Cells None seen (NONE/RARE) #/LPF Urine Crystals None seen (None Seen) #/HPF Urine Bacteria Large A (NONE SEEN) #/HPF Urine Casts None seen (NONE SEEN) #/LPF Urine Mucus None seen (NONE SEEN) Ur Culture Indicated? Yes Imaging Data CT scan - head: Radiologist's impression: ITS Impressions Head CT 12/12/23 10:58 IMPRESSION: 1. Permeative appearance of the calvarium may partially reflect underlying osseous demineralization. An infiltrative neoplastic process to include but not limited to multiple myeloma may have a similar appearance. Recommend clinical correlation. 2. No acute intracranial process identified. MRI may be more sensitive, particularly for evaluation for acute ischemia, if a persistent clinical concern exists. These results were discussed with Dr. Barreto by Dr. Britton 12:17 PM EST, 12/20/2023. Electronically authenticated by: NIXON BRITTON Date: 12/12/2023 12:22 ECG Data Attestation: I personally reviewed and interpreted this ECG as follows: Interpretation: EKG interpretation: Emergency Department physician interpretation. Normal sinus rhythm at 76bpm. Normal axis, normal intervals. Inverted T waves lead aVL. No ST segment elevation or depression. Discharge Plan Discharge Chief Complaint: Weakness Clinical Impression: Bilateral leg weakness, Acute UTI Patient Disposition: Home, Self-Care Time of Disposition Decision: 12:52 Prescriptions / Home Meds: New cephalexin 500 mg capsule 500 mg PO BID 7 Days Qty: 14 0RF methylprednisolone [Medrol (David)] 4 mg tablets,dose pack 4 mg PO DAILY Qty: 21 0RF Rx Instructions: follow directions on the package No Action buprenorphine-naloxone 8-2 mg film 1.5 film sublingual Q24H metoprolol tartrate 25 mg tablet 25 mg PO Q12H naloxone [Narcan] 4 mg/actuation spray,non-aerosol 1 spray INTRANASAL Q3M PRN (Reason: opioid overdose) valsartan 80 mg tablet 80 mg PO DAILY spironolactone 25 mg Tablet 25 mg PO QD 30 Days Qty: 30 0RF ferrous sulfate [Iron (ferrous sulfate)] 325 mg (65 mg iron) tablet 325 mg PO DAILY 30 Days Qty: 30 0RF amlodipine 5 mg tablet 5 mg PO DAILY furosemide 20 mg tablet 20 mg PO DAILY prasugrel 10 mg tablet 10 mg PO DAILY gabapentin 100 mg Capsule 100 mg PO TID Qty: 90 0RF prednisone 10 mg tablets,dose pack 10 mg PO DAILY Qty: 39 0RF Rx Instructions: 6 PO daily x 3 days, then 4 PO daily x 3 days, then 2 PO daily x 3 days, then 1 PO daily x 3 days albuterol sulfate 90 mcg/actuation HFA aerosol inhaler INHALATION Instructions: Weakness (ED), Urinary Tract Infection in Older Adults (ED) Stand Alone Forms: Portal Instructions Referrals: Shaikh Serna MD [Primary Care Provider] - 1 week
[2023-12-12 11:10] LABS: Bilirubin Urine NEGATIVE (NEGATIVE); Blood Urine SMALL (NEGATIVE); Clarity Urine SL CLOUDY (CLEAR); Color Urine LT. YELLOW (YELLOW); Glucose Urine UA NEGATIVE (NEGATIVE); Ketones Urine NEGATIVE (NEGATIVE); Leukocyte Esterase Urine MODERATE (NEGATIVE); Nitrite Urine POSITIVE (NEGATIVE); Protein Urine 30 mg/dL (NEG/TRACE)
[2023-12-12] MEDS: 0.9 % SODIUM CHLORIDE 1,000 ML 999 ML IV (11:10)
[2023-12-12] MEDS: METHYLPREDNISOLONE SOD SUCC PF 125 MG/2 ML VIAL IVP (11:10)
[2023-12-12 11:18] LABS: Urine Microscopic Indicated YES
[2023-12-12 11:21] LABS: Basophils Absolute Auto 0.1 10^3/uL (0.0-0.1); Eosinophils Absolute Auto 0.1 10^3/uL (0.0-0.7); Eosinophils Percent Auto 1.9 % (0.9-7.0); Hemoglobin 9.2 g/dL (12.0-16.0); Immature Granulocytes Abs Auto 0.06 10^3/uL (0.00-0.03); Lymphocytes Absolute Auto 0.4 10^3/uL (1.2-3.8); Lymphocytes Percent Auto 6.1 % (20.5-60.0); Mean Corpuscular HGB Conc 29.7 g/dL (29.9-35.2); Mean Corpuscular Hemoglobin 27.1 pg (26.7-34.0); Mean Corpuscular Volume 91.4 fL (81.0-99.0); Mean Platelet Volume 9.6 fL (9.5-13.5); Monocytes Absolute Auto 0.5 10^3/uL (0.3-0.8); Monocytes Percent Auto 7.6 % (1.7-12.0); Neutrophils Absolute Auto 5.1 10^3/uL (1.4-6.5); Neutrophils Percent Auto 82.4 % (43.0-75.0); Platelet Count 203 10^3/uL (150-450); Red Blood Count 3.39 10^6/uL (4.20-5.40); Red Cell Distribution Width 15.7 % (11.0-15.0); White Blood Count 6.2 10^3/uL (4.0-11.0)
[2023-12-12 11:21] LABS: Bacteria Urine LARGE #/HPF (NONE SEEN); Mucus Urine NONE SEEN (NONE SEEN); WBC Urine 20-50 #/HPF (NONE SEEN)
[2023-12-12 11:22] LABS: Cast Seen? NONE SEEN #/LPF (NONE SEEN); Crystals Seen? None Seen #/HPF (None Seen); Squamous Epithelial Cell Urine NONE SEEN #/LPF (NONE/RARE); Urine Culture Indicated YES
[2023-12-12 11:59] LABS: Alanine Aminotransferase 20 U/L (14-59); Albumin Globulin Ratio 0.6; Albumin Level 2.6 g/dL (3.4-5.0); Alkaline Phosphatase 105 U/L (46-116); Anion Gap 15.6; Aspartate Amino Transferase 12 U/L (15-37); BUN Creatinine Ratio 25.7; Bilirubin Total 0.7 mg/dL (0.2-1.0); Calcium 8.7 mg/dL (8.5-10.1); Carbon Dioxide 25.9 mmol/L (21.0-32.0); Chloride 105 mmol/L (98-107); Estimated GFR (African America 33 (>=60); Estimated GFR (Non-African Ame 27 (>=60); Globulin 4.3 g/dL; Glucose 110 mg/dL (74-106); Potassium 5.5 mmol/L (3.5-5.1); Sodium 141 mmol/L (136-145); Total Protein 6.9 g/dL (6.4-8.2)
--- NOTE | 2023-12-12 13:08 | PC.NURSE ---
Patient up with walker, ambulates with walker without difficulty. Reports I feel like a new person . Dr. Barreto notified of ambulation.
--- OUTSIDE RECORDS SUMMARY | 2023-12-12 13:21 | XMS_ITS | CCD ---
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 Role Phone INGRID IBARRA Unavailable Unavailable [...] Consulting Unavailab Callie Scales Consulting Unavailable DIAB, LRAA Admitting Unavailable OMAR EDOUARDM Attending Unavailable DR [...] 0 Refills: 0 Ordered: 30-Apr-2022 DO Active [id number] 200 actuat albuterol 0.09 mg/actuat metered dose [...] October 02, 2020 3:31pm 168 hr cloNIDine 0.89922 mg/hr transdermal system (2 sources) Central alpha-2 [...] medications] Episodic Other aftercare (1 source) Other long-term (current) drug therapy; Translations: [OTH NURSING HOME CURRENT DRUG THERAPY] Onset: 12-29-2022 Episodic Other [...] Unclassified (1 source) Athscl heart disease of [place] coronary artery w/o ang pctrs / I25.10(ICD-9) [...] Multiple labsOrdered By: Maureen Eckert on 11-23-2023 [employer] [facility] Height or Weight NOT Doneon 08-20-2023 Adult depression screening assessment No [facility] [employer] DO Work Phone: Fall risk assessment a) No falls within the last year [facility] [employer] 600 DO Work Phone: Office Visit (Cardiology)on 08-20-2023 Follow-up visit Diagnoses/Problems Assessed Mixed hyperlipidemia (272.2) (E78.2) Essential hypertension (401.9) (I10) Atherosclerosis of [place] coronary artery without angina pectoris (414.01) (I25.10) Status post angioplasty (V45.89) (Z98.62) Shortness of breath (786.05) (R06.02) Former smoker (V15.82) (Z87.891) Quit 1993 Orders Atherosclerosis of [place] coronary artery without angina pectoris, Status post [...] Former smoker Tobacco Use Screening; Status:Complete; Done: [id number] Unlinked Stop: amLODIPine Besylate 10 MG Oral [...] negative for complaint. Vitals Vital Signs Recorded: [id number] 11:08AM Heart Rate70, L Radial Mnqgnwif233, LUE, Sitting Jfvokxizc53, LUE, Sitting Height5 ft 3 in Height [...] by: CHARLEY LUCAS Date: 2022-12-27 15:51 Normal [facility] XR RIBS LT PA Waqar 3 XR [...] calcified granuloma in the right lung base. [place] screws noted in the right humeral head. IMPRESSION: 1. No acute rib fracture identified. 2. No acute cardiopulmonary process. Electronically authenticated by: MARLON METCALF Date: 2022-12-27 15:50 Normal [facility] Tobacco Screening.on 022 Adult depression screening assessment No [facility] 250 DO Work Phone: Fall risk assessment a) No falls within the last year [facility] 250 DO Work Phone: Tobacco use status [facility] b) No [facility] 250 DO Work Phone: Basic Metabolic Panelon 03-24 Calcium [Mass/Vol] 8.9 mg/dL Normal 8.2-10.2 [facility] Comment on above: Performed By: #### C BC, BMP #### [facility] [address] [place] [address] [place] Chloride [Moles/Vol] 106 mmol/L Normal 95-114 [facility] Comment on above: Performed By: #### C BC, BMP #### [facility] [address] [place] [address] [place] CO2 [Moles/Vol] 22.3 mmol/L Normal 22.0-30.0 [facility] Comment on above: Performed By: #### C BC, BMP #### [address] Creatinine [Mass/Vol] 1.42 mg/dL High 0.44-1.03 [facility] Comment on above: Performed By: #### C BC, BMP #### [address] Creatinine Clr Calc Pharmacy 38.78 [facility] Comment on above: Result Comment: PERF ORMED BY: [place] [address] PATHOLOGIST MARRIAGE THERAPIST CUCA VOGT M.D. Performed By: #### C BC, BMP #### [address] Estimated GFR ( Jasmin 44 [facility] Comment on above: Result Comment: GFR estimated reference range: According to KDOQI guidelines, <60 ml/min/1.73m2 is sufficient to diagnose a patient with chronic kidney disease. Performed By: #### C BC, BMP #### [place] [address] [place] Estimated GFR (Non- Am 36 [facility] Comment on above: Performed By: #### C BC, BMP #### [address] Glucose [Mass/Vol] 107 mg/dL High 70-100 [facility] Comment on above: Result Comment: [place] Glucose Reference Range is dependent on time and content of last meal. Glucose of more than 200 mg/dL in a nonstressed, ambulatory subject supports the diagnosis of Diabetes Mellitus. ADA recommended reference range Performed By: #### C BC, BMP #### [address] Potassium [Moles/Vol] 4.2 mmol/L Normal 3.5-5.1 [facility] Comment on above: Performed By: #### C BC, BMP #### [address] Sodium [Moles/Vol] 139 mmol/L Normal 136-146 [facility] Comment on above: Performed By: #### C BC, BMP #### [address] Urea nitrogen [Mass/Vol] 16 mg/dL Normal - [facility] Comment on above: Performed By: #### C BC, BMP #### [address] Complete Blood Count Auto Di ffon 04-18-2022 Basophils (Bld) [#/Vol] 0.1 10*3/uL Normal 0.0-0.2 [facility] Comment on above: Result Comment: PERF ORMED BY: [place] [address] PATHOLOGIST MARRIAGE THERAPIST CUCA VOGT M.D. Performed By: #### C BC, BMP #### [address] Basophils/100 WBC (Bld) 1.2 % Normal . [facility] Comment on above: Performed By: #### C BC, BMP #### [address] Eosinophils (Bld) [#/Vol] 0.2 10*3/uL Normal 0.0-0.45 [facility] Comment on above: Performed By: #### C BC, BMP #### [address] Eosinophils/100 WBC (Bld) 1.8 % Normal . [facility] Comment on above: Performed By: #### C BC, BMP #### [address] Erythrocyte distribution width (RBC) [Ratio] 17.9 % High 11.9-15.3 [facility] Comment on above: Performed By: #### C BC, BMP #### [address] Hematocrit (Bld) [Volume fraction] 30.9 % Low 34.0-46.4 [facility] Comment on above: Performed By: #### C BC, BMP #### [address] [place] [address] [place] Hemoglobin (Bld) [Mass/Vol] 9.9 g/dL Low 11.8-15.4 [facility] Comment on above: Performed By: #### C BC, BMP #### [facility] [address] Lymphocytes (Bld) [#/Vol] 1.0 10*3/uL Normal 1.00-4.8 [facility] Comment on above: Performed By: #### C BC, BMP #### [facility] [address] Lymphocytes/100 WBC (Bld) 11.3 % Normal . [facility] Comment on above: Performed By: #### C BC, BMP #### [address] MCH (RBC) [Entitic mass] 25.7 pg Normal 24.7-34.3 [facility] Comment on above: Performed By: #### C BC, BMP #### [address] MCV (RBC) [Entitic vol] 80.1 fL Normal 80-100 [facility] Comment on above: Performed By: #### C BC, BMP #### [address] Mean Corpuscular HGB Conc 32.0 g/dL Normal 32.0-35.0 [facility] Comment on above: Performed By: #### C BC, BMP #### [place] [address] [place] Monocytes (Bld) [#/Vol] 0.5 10*3/uL Normal 0.0-0.8 [facility] Comment on above: Performed By: #### C BC, BMP #### [place] [address] [place] Monocytes/100 WBC (Bld) 5.3 % Normal . [facility] Comment on above: Performed By: #### C BC, BMP #### [place] [id number] [place] Neutrophils (Bld) [#/Vol] 7.0 10*3/uL Normal 1.8-7.7 [facility] Comment on above: Performed By: #### C LUCIAN, BMP #### [facility] [address] [place] [address] [place] Neutrophils/100 WBC (Bld) 80.4 % Normal . [facility] Comment on above: Performed By: #### C LUCIAN, BMP #### [facility] [address] [place] [address] [place] Nucleated RBC/100 WBC (Bld) [Ratio] 0.1 % Normal 0-0.5 [facility] Comment on above: Performed By: #### C LUCIAN, BMP #### [address] Platelet mean volume (Bld) [Entitic vol] 8.1 fL Normal 6.3-10.7 [facility] Comment on above: Performed By: #### C LUCIAN, BMP #### [facility] [address] [place] [address] [place] Platelets (Bld) [#/Vol] 236 10*3/uL Normal 150-450 [facility] Comment on above: Performed By: #### C LUCIAN, BMP #### [place] [address] [place] RBC (Bld) [#/Vol] 3.86 10*6/uL Normal 3.60-5.00 [facility] Comment on above: Performed By: #### C LUCIAN, BMP #### [place] [address] [place] WBC (Bld) [#/Vol] 8.7 10*3/uL Normal 4.5-11.0 [facility] Comment on above: Performed By: #### C LUCIAN, BMP #### [place] [address] [place] ECG 12 lead ECGon 04-18-2022 ECG 12 lead ECG [facility] [place] [address] [place] [address] Electrocardiograph Report Signed Patient: Kusum Huerta MR#: [id number] [birth year] : 1950 Acct:[id number] Age/Sex: 72 / F ADM Date: 04/16/22 Loc: Room: [address] [place] [address] Type: DIS IN Attending Dr: Nisha Crane [...] Tammy Suarez MD 0 04/18/22 1519 Normal [facility] Troponin I High Sensitivityo n 04-18-2022 Troponin I High Sensitivity 5969 pg/mL Off scale high 0-15 [facility] Comment on above: Result Comment: Resu lts called at 0615 on 04/18/22 PERFORMED BY: [place] [address] PATHOLOGIST MARRIAGE THERAPIST CUCA VOGT M.D. Performed By: #### H S TROP #### [facility] [address] Basic Metabolic Panelon 05 Calcium [Mass/Vol] 8.4 mg/dL Normal 8.2-10.2 [facility] Comment on above: Performed By: #### C OVID 19 [facility], COVID-19 ARL[place], SOFIANEG #### [facility] [address] [place] [id number] [place] Chloride [Moles/Vol] 107 mmol/L Normal 95-114 [facility] Comment on above: Performed By: #### C OVID 19 [facility], COVID-19 [place], SOFIANEG #### [facility] [address] CO2 [Moles/Vol] 24.3 mmol/L Normal 22.0-30.0 [facility] Comment on above: Performed By: #### C OVID 19 [facility], COVID-19 [place], SOFIANEG #### [facility] [address] Creatinine [Mass/Vol] 1.61 mg/dL High 0.44-1.03 [facility] Comment on above: Performed By: #### C LEVASY 19 [facility], COVID-19 [place], SOFIANEG #### [facility] [address] Creatinine Clr Calc Pharmacy 34.21 [facility] Comment on above: Result Comment: PERF ORMED BY: [place] [address] PATHOLOGIST MARRIAGE THERAPIST CUCA VOGT M.D. Performed By: #### C LEVASY 19 [facility], COVID-19 [place], SOFIANEG #### [facility] [address] Estimated GFR ( Jasmin 38 [facility] Comment on above: Result Comment: GFR estimated reference range: According to KDOQI guidelines, <60 ml/min/1.73m2 is sufficient to diagnose a patient with chronic kidney disease. Performed By: #### C LEVASY 19 [facility], COVID-19 [place], SOFIANEG #### [facility] [address] Estimated GFR (Non- Am 31 [facility] Comment on above: Performed By: #### C LEVASY 19 [facility], COVID-19 [place]RL[place], SOFIANEG #### [facility] [address] Glucose [Mass/Vol] 126 mg/dL High 70-100 [facility] Comment on above: Result Comment: [place] Glucose Reference Range is dependent on time and content of last meal. Glucose of more than 200 mg/dL in a nonstressed, ambulatory subject supports the diagnosis of Diabetes Mellitus. ADA recommended reference range Performed By: #### C OVID 19 [facility], COVID-19 [place], SOFIANEG #### [facility] [address] Potassium [Moles/Vol] 4.4 mmol/L Normal 3.5-5.1 [facility] Comment on above: Performed By: #### C LEVASY 19 [facility], COVID-19 [place]RL[place], SOFIANEG #### [facility] [address] Sodium [Moles/Vol] 140 mmol/L Normal 136-146 [facility] Comment on above: Performed By: #### C LEVASY 19 [facility], COVID- ARLENE, SOFIANEG #### [facility] [address] Urea nitrogen [Mass/Vol] 19 mg/dL Normal 9-23 [facility] Comment on above: Performed By: #### C LEVASY 19 [facility], COVID- ARLENE, SOFIANEG #### [facility] [address] Complete Blood Count Auto Di ffon 04-17-2022 Basophils (Bld) [#/Vol] 0.1 10*3/uL Normal 0.0-0.2 [facility] Comment on above: Result Comment: PERF ORMED BY: [place] [address] PATHOLOGIST MARRIAGE THERAPIST CUCA VOGT M.D. Performed By: #### C LEVASY 19 [facility], COVID- ARL[place], SOFIANEG #### [facility] [address] [place] [address] [place] Basophils/100 WBC (Bld) 0.6 % Normal . [facility] Comment on above: Performed By: #### C LEVASY 19 [facility], COVID-19 [place]RL[place], SOFIANEG #### [facility] [address] Eosinophils (Bld) [#/Vol] 0.2 10*3/uL Normal 0.0-0.45 [facility] Comment on above: Performed By: #### C LEVASY 19 [facility], COVID-19 [place], SOFIANEG #### [facility] [address] Eosinophils/100 WBC (Bld) 2.5 % Normal . [facility] Comment on above: Performed By: #### C LEVASY 19 [facility], COVID-19 ARL[place], SOFIANEG #### [facility] [address] Erythrocyte distribution width (RBC) [Ratio] 17.6 % High 11.9-15.3 [facility] Comment on above: Performed By: #### C LEVASY 19 [facility], [facility] [place], SOFIANEG #### [address] Hematocrit (Bld) [Volume fraction] 28.4 % Low 34.0-46.4 [facility] Comment on above: Performed By: #### C LEVASY 19 [facility], COVID-19 [place]RL[place], SOFIANEG #### [address] Hemoglobin (Bld) [Mass/Vol] 9.2 g/dL Low 11.8-15.4 [facility] Comment on above: Performed By: #### C LEVASY 19 [facility], COVID-19 ARLENE, SOFIANEG #### [facility] [address] [place] [address] Lymphocytes (Bld) [#/Vol] 1.3 10*3/uL Normal 1.00-4.8 [facility] Comment on above: Performed By: #### C LEVASY 19 [facility], COVID-19 ARLENE, SOFIANEG #### [address] Lymphocytes/100 WBC (Bld) 16.9 % Normal . [facility] Comment on above: Performed By: #### C LEVASY 19 [facility], COVID-19 [place], SOFIANEG #### [address] MCH (RBC) [Entitic mass] 25.9 pg Normal 24.7-34.3 [facility] Comment on above: Performed By: #### C OVID 19 [facility], COVID-19 [place], SOFIANEG #### [address] MCV (RBC) [Entitic vol] 80.3 fL Normal 80-100 [facility] Comment on above: Performed By: #### C LEVASY 19 [facility], COVID-19 [place], SOFIANEG #### [address] Mean Corpuscular HGB Conc 32.3 g/dL Normal 32.0-35.0 [facility] Comment on above: Performed By: #### C LEVASY 19 [facility], COVID-19 ARL[place], SOFIANEG #### [address] Monocytes (Bld) [#/Vol] 0.5 10*3/uL Normal 0.0-0.8 [facility] Comment on above: Performed By: #### C OVID 19 [facility], COVID-19 [place], SOFIANEG #### [address] Monocytes/100 WBC (Bld) 5.8 % Normal . [facility] Comment on above: Performed By: #### C LEVASY 19 [facility], COVID-19 [place], SOFIANEG #### [facility] [address] [place] [address] Neutrophils (Bld) [#/Vol] 5.9 10*3/uL Normal 1.8-7.7 [facility] Comment on above: Performed By: #### C LEVASY 19 [facility], COVID-19 [place], SOFIANEG #### [address] Neutrophils/100 WBC (Bld) 74.2 % Normal . [facility] Comment on above: Performed By: #### C LEVASY 19 [facility], COVID-19 [place], SOFIANEG #### [address] [place] [address] [place] Nucleated RBC/100 WBC (Bld) [Ratio] 0.0 % Normal 0-0.5 [facility] Comment on above: Performed By: #### C LEVASY 19 [facility], [facility] [place], SOFIANEG #### [facility] [address] Platelet mean volume (Bld) [Entitic vol] 8.0 fL Normal 6.3-10.7 [facility] Comment on above: Performed By: #### C LEVASY 19 [facility], [place] [address] [place], SOFIANEG #### [facility] [address] Platelets (Bld) [#/Vol] 227 10*3/uL Normal 150-450 [facility] Comment on above: Performed By: #### C LEVASY 19 [facility], [place] [address] A[place], SOFIANEG #### [facility] [address] RBC (Bld) [#/Vol] 3.54 10*6/uL Low 3.60-5.00 [facility] Comment on above: Performed By: #### C LEVASY 19 [facility], [facility]19 [place], SOFIANEG #### [address] WBC (Bld) [#/Vol] 7.9 10*3/uL Normal 4.5-11.0 [facility] Comment on above: Performed By: #### C LEVASY 19 [facility], [facility], SOFIANEG #### [address] ECG 12 lead ECGon 04-17-2022 ECG 12 lead ECG [facility] [place] [address] [place] [address] Electrocardiograph Report Signed Patient: Kusum Huerta MR#: [id number] 01 : 1950 Acct:[id number] Age/Sex: 72 / F ADM Date: 04/16/22 Loc: Room: [address] [place] [address] Type: DIS IN Attending Dr: Nisha Crane [...] was found Confirmed by TAMMY SUAREZ MD ([facility]) on 04/18/2022 3:19:42 PM Referred By: Electronically Signed By:TAMMY SUAREZ MD Transcribed By: MUS Signed By Tammy Suarez MD 0 04/18/22 1519 Normal [facility] Partial Thromboplastin Timeo n 04-17-2022 aPTT Coag (Bld) [Time] 62.4 s High 25.1-36.5 [facility] Comment on above: Result Comment: PERF ORMED BY: [place] [address] PATHOLOGIST MARRIAGE THERAPIST CUCA VOGT M.D. Performed By: #### C OVID 19 [facility], COVID-19 [place], SOFIANEG #### [facility] [address] [place] [id number] [facility] aPTT Coag (Bld) [Time] 49.4 s High 25.1-36.5 [facility] Comment on above: Result Comment: PERF ORMED BY: [facility] [address] [place] [address] PATHOLOGIST MARRIAGE THERAPIST CUCA VOGT M.D. Performed By: #### C OVID 19 [facility], COVID-19 [place], SOFIANEG #### [facility] [address] [place] [id number] [place] A1C with Estimated Average G tavares 04-16-2022 Glucose [Mass/Vol] 117 mg/dL Normal [facility] Comment on above: Result Comment: PERF ORMED BY: [place] [address] PATHOLOGIST MARRIAGE THERAPIST CUCA VOGT M.D. Performed By: #### C OVID 19 [facility], COVID-19 [place], SOFIANEG #### [facility] [address] HbA1c (Bld) [Mass fraction] 5.7 % High 4.3-5.6 [facility] Comment on above: Result Comment: Incr eased risk for diabetes: 5.7 - 6.4 diabetes: >6.4 glycemic control for adults with diabetes: <7.0 Performed By: #### C OVID 19 [facility], COVID-19 [place], SOFIANEG #### [facility] [address] B-Type Natriuretic Peptideon 04-16-2022 Natriuretic peptide B (Bld) [Mass/Vol] 204.0 pg/mL High 5-100 [facility] Comment on above: Result Comment: PERF ORMED BY: [place] [address] PATHOLOGIST MARRIAGE THERAPIST CUCA VOGT M.D. Performed By: #### C OVID 19 [facility], COVID-19 A[place], SOFIANEG #### [place] [id number] [facility] Basic Metabolic Panelon 03-24 Calcium [Mass/Vol] 8.2 mg/dL Normal 8.2-10.2 [facility] Comment on above: Performed By: #### C OVID 19 [facility], COVID-19 [place], SOFIANEG #### [facility] [address] [place] [id number] [place] Chloride [Moles/Vol] 106 mmol/L Normal 95-114 [facility] Comment on above: Performed By: #### C OVID 19 [facility], COVID-19 ARL[place], SOFIANEG #### [facility] [address] [place] [id number] [place] CO2 [Moles/Vol] 19.3 mmol/L Low 22.0-30.0 [facility] Comment on above: Performed By: #### C OVID 19 [facility], COVID-19 [place], SOFIANEG #### [facility] [address] Creatinine [Mass/Vol] 1.52 mg/dL High 0.44-1.03 [facility] Comment on above: Performed By: #### C LEVASY 19 [facility], COVID-19 ARL[place], SOFIANEG #### [facility] [address] [place] [address] [place] Creatinine Clr Calc Pharmacy 36.27 [facility] Comment on above: Result Comment: PERF ORMED BY: [place] [address] PATHOLOGIST MARRIAGE THERAPIST CUCA VOGT M.D. Performed By: #### C LEVASY 19 [facility], COVID-19 [place], SOFIANEG #### [address] Estimated GFR ( Jasmin 41 [facility] Comment on above: Result Comment: GFR estimated reference range: According to KDOQI guidelines, <60 ml/min/1.73m2 is sufficient to diagnose a patient with chronic kidney disease. Performed By: #### C LEVASY 19 [facility], COVID-19 [place], SOFIANEG #### [facility] [address] Estimated GFR (Non- Am 34 [facility] Comment on above: Performed By: #### C LEVASY 19 [facility], COVID-19 ARLENE, SOFIANEG #### [facility] [address] Glucose [Mass/Vol] 135 mg/dL High 70-100 [facility] Comment on above: Result Comment: [place] om Glucose Reference Range is dependent on time and content of last meal. Glucose of more than 200 mg/dL in a nonstressed, ambulatory subject supports the diagnosis of Diabetes Mellitus. ADA recommended reference range Performed By: #### C LEVASY 19 [facility], COVID-19 [place], SOFIANEG #### [facility] [address] Potassium [Moles/Vol] 4.4 mmol/L Normal 3.5-5.1 [facility] Comment on above: Performed By: #### C OVID 19 [facility], COVID-19 [place], SOFIANEG #### [facility] [address] Sodium [Moles/Vol] 135 mmol/L Low 136-146 [facility] Comment on above: Performed By: #### C OVID 19 [facility], COVID-19 [place], SOFIANEG #### [facility] [address] Urea nitrogen [Mass/Vol] 27 mg/dL High 9-23 [facility] Comment on above: Performed By: #### C OVID 19 [facility], COVID-19 [place], SOFIANEG #### [facility] [address] Calcium [Mass/Vol] 8.3 mg/dL Normal 8.2-10.2 [facility] Comment on above: Performed By: #### B MP #### [facility] [address] [place] [address] [place] Chloride [Moles/Vol] 108 mmol/L Normal 95-114 [facility] Comment on above: Performed By: #### B MP #### [facility] [address] [place] [address] CO2 [Moles/Vol] 18.3 mmol/L Low 22.0-30.0 [facility] Comment on above: Performed By: #### B MP #### [facility] [address] [place] [address] [place] Creatinine [Mass/Vol] 1.86 mg/dL High 0.44-1.03 [facility] Comment on above: Performed By: #### B MP #### [facility] [address] [place] [address] [place] Creatinine Clr Calc Pharmacy 29.64 Normal [facility] Comment on above: Result Comment: PERF ORMED BY: [place] [address] PATHOLOGIST MARRIAGE THERAPIST CCUA VOGT M.D. Performed By: #### B MP #### [address] Estimated GFR ( Jasmin 32 [facility] Comment on above: Result Comment: GFR estimated reference range: According to KDOQI guidelines, <60 ml/min/1.73m2 is sufficient to diagnose a patient with chronic kidney disease. Performed By: #### B MP #### [address] Estimated GFR (Non- Am 27 [facility] Comment on above: Performed By: #### B MP #### [address] Glucose [Mass/Vol] 131 mg/dL High 70-100 [facility] Comment on above: Result Comment: [place] om Glucose Reference Range is dependent on time and content of last meal. Glucose of more than 200 mg/dL in a nonstressed, ambulatory subject supports the diagnosis of Diabetes Mellitus. ADA recommended reference range Performed By: #### B MP #### [address] Potassium [Moles/Vol] 4.9 mmol/L Normal 3.5-5.1 [facility] Comment on above: Performed By: #### B MP #### [address] Sodium [Moles/Vol] 135 mmol/L Low 136-146 [facility] Comment on above: Performed By: #### B MP #### [place] [address] [place] Urea nitrogen [Mass/Vol] 31 mg/dL High 9-23 [facility] Comment on above: Performed By: #### B MP #### [address] COVID-19 Antigenon 2 COVID-19 Antigen Healthcare [...] developed and its performance characteristic determined by [employer] and validated at [facility]. This test has not been FDA cleared [...] for SARS Antigen by SANTI[employer]O PERFORMED BY: [place] [address] PATHOLOGIST MARRIAGE THERAPIST CUCA VOGT M.D. Normal [facility] Comment on above: Performed By: #### C OVID 19 [facility], COVID-19 CHELSEY JACOBSEG #### [address] [facility] SARS-CoV-2 (COVID-19) RNA REN+probe Ql (Unsp spec) Negative Normal Negative [facility] Comment on above: Order Comment: Healt hcare Worker?: N Result Comment: Testing for SARS-CoV-2 by RT-PCR This test was developed and its performance characteristics determined by [employer] and validated at the [facility]. This test has not been FDA cleared [...] is terminated or revoked sooner. PERFORMED BY: [place] [address] PATHOLOGIST MARRIAGE THERAPIST CUCA VOGT M.D. Performed By: #### C OVID 19 [facility], COVID-19 ARLENE, SOFIANEG #### [address] Comprehensive Metabolic Pane guerita 04-16-2022 Albumin [Mass/Vol] 4.0 g/dL Normal 3.2-5.5 [facility] Comment on above: Performed By: #### C OVID 19 [facility], COVID-19 ARLENE, SOFIANEG #### [address] Albumin/Globulin [Mass ratio] 1.3 {ratio} Normal [facility] Comment on above: Performed By: #### C OVID 19 [facility], COVID-19 ARLENE, SOFIANEG #### [address] ALP [Catalytic activity/Vol] 157 U/L High 32-92 [facility] Comment on above: Performed By: #### C OVID 19 [facility], COVID-19 ARLENE, SOFIANEG #### [address] [place] [address] [place] ALT [Catalytic activity/Vol] 14 U/L Normal 10-60 [facility] Comment on above: Performed By: #### C OVID 19 [facility], COVID-19 ARLENE, SOFIANEG #### [facility] [address] AST [Catalytic activity/Vol] 19 U/L Normal 10-42 [facility] Comment on above: Performed By: #### C OVID 19 [facility], COVID-19 ARLENE, SOFIANEG #### [facility] [address] Bilirubin [Mass/Vol] 0.7 mg/dL Normal 0.3-1.2 [facility] Comment on above: Performed By: #### C OVID 19 [facility], COVID-19 ARLENE, SOFIANEG #### [facility] [address] Calcium [Mass/Vol] 9.2 mg/dL Normal 8.2-10.2 [facility] Comment on above: Performed By: #### C OVID 19 [facility], COVID-19 ARLENE, SOFIANEG #### [facility] [address] [place] [address] [place] Chloride [Moles/Vol] 105 mmol/L Normal 95-114 [facility] Comment on above: Performed By: #### C OVID 19 [facility], COVID-19 ARLENE, SOFIANEG #### [facility] [address] [place] [address] [place] CO2 [Moles/Vol] 16.2 mmol/L Low 22.0-30.0 [facility] Comment on above: Performed By: #### C OVID 19 [facility], COVID-19 ARLENE, SOFIANEG #### [facility] [address] [place] [address] [place] Creatinine [Mass/Vol] 2.24 mg/dL High 0.44-1.03 [facility] Comment on above: Performed By: #### C OVID 19 [facility], COVID-19 ARLENE, SOFIANEG #### [facility] [address] Creatinine Clr Calc Pharmacy 24.73 [facility] Comment on above: Result Comment: PERF ORMED BY: [place] [address] PATHOLOGIST MARRIAGE THERAPIST CUCA VOGT M.D. Performed By: #### C OVID 19 [facility], COVID-19 ARLENE, SOFIANEG #### [facility] [address] Estimated GFR ( Jasmin 26 [facility] Comment on above: Result Comment: GFR estimated reference range: According to KDOQI guidelines, <60 ml/min/1.73m2 is sufficient to diagnose a patient with chronic kidney disease. Performed By: #### C OVID 19 [facility], COVID-19 ARLENE, SOFIANEG #### [address] Estimated GFR (Non- Am 21 [facility] Comment on above: Performed By: #### C OVID 19 [facility], COVID-19 ARLENE, SOFIANEG #### [facility] [address] [place] [address] Globulin (S) [Mass/Vol] 3.2 g/dL [facility] Comment on above: Performed By: #### C OVID 19 [facility], COVID- ARLENE, SOFIANEG #### [address] Glucose [Mass/Vol] 141 mg/dL High 70-100 [facility] Comment on above: Result Comment: [place] Glucose Reference Range is dependent on time and content of last meal. Glucose of more than 200 mg/dL in a nonstressed, ambulatory subject supports the diagnosis of Diabetes Mellitus. ADA recommended reference range Performed By: #### C OVID 19 [facility], COVID-19 ARLENE, SOFIANEG #### [address] Potassium [Moles/Vol] 5.5 mmol/L High 3.5-5.1 [facility] Comment on above: Performed By: #### C OVID 19 [facility], COVID-19 ARLENE, SOFIANEG #### [facility] [address] Protein [Mass/Vol] 7.2 g/dL Normal 6.1-7.9 [facility] Comment on above: Performed By: #### C OVID 19 [facility], COVID-19 ARLENE, SOFIANEG #### [facility] [address] [place] [id number] [place] Sodium [Moles/Vol] 134 mmol/L Low 136-146 [facility] Comment on above: Performed By: #### C OVID 19 [facility], COVID-19 ARLENE, SOFIANEG #### [facility] [address] Urea nitrogen [Mass/Vol] 34 mg/dL High - [facility] Comment on above: Performed By: #### C OVID 19 [facility], COVID-19 ARLENE, SOFIANEG #### [address] Creatine Kinaseon 04-16-2022 CK [Catalytic activity/Vol] 64 U/L Normal 22-269 [facility] Comment on above: Performed By: #### H S TROP #### [address] Creatinine Kinase MBon 04-16 CK.MB [Mass/Vol] 2.0 ng/mL Normal 0.6-6.3 [facility] Comment on above: Performed By: #### H S TROP #### [address] CKMB Relative Index 3.1 % High 0.00-2.50 [facility] Comment on above: Performed By: #### H S TROP #### [address] ECG 12 lead ECGon 04-16-2022 ECG 12 lead ECG [facility] Main [place] [address] [place] [address] Electrocardiograph Report Signed Patient: Kusum Huerta MR#: [id number] 01 : 1950 Acct:[id number] Age/Sex: 72 / F ADM Date: 04/16/22 Loc: Room: [address] [place] [address] Type: DIS IN Attending Dr: Nisha Crane [...] Signed By Roderick Porter DO 04/26 Normal [facility] ECG 12 lead ECG [facility] [address] Electrocardiograph Report Signed Patient: Kusum Huerta MR#: [id number] : 1950 Acct:[id number] Age/Sex: 72 / F ADM Date: 04/16/22 Loc: Room: [address] [place] [address] Type: DIS IN Attending Dr: Nisha Crane [...] in v4-v6 Confirmed by MAXINE SHORT MD ([id number]) on 04/16/2022 4:40:09 AM Referred By: Electronically Signed By:MAXINE SHORT MD Transcribed By: MUS Signed By Maxine Short Jr, MD 0440 [facility] ECG 12 lead ECG [facility] Main [place] [id number] Electrocardiograph Report Signed Patient: Kusum Huerta MR#: [id number] 01 : 1950 Acct:[id number] Age/Sex: 72 / F ADM Date: 04/16/22 Loc: Room: [address] [place] [address] Type: DIS IN Attending Dr: Nisha Crane [...] Lateral leads Confirmed by MAXINE SHORT MD ([id number]) on 04/16/2022 4:38:02 AM Referred By: Electronically Signed By:MAXINE SHORT MD Transcribed By: MUS Signed By Maxine Short Jr, MD 0438 [facility] echo transthoracicon [facility] echo transthoracic [facility] Main [address] [address] Echocardiogram Signed Patient: Kusum Huerta MR#: [id number] 01 : 1950 Acct:[id number] Age/Sex: 72 / F ADM Date: 04/16/22 Loc: Room: [address] [place] [address] Type: DIS IN Attending Dr: Nisha Crane MD Ordering Provider: Shivani Etienne APRN Date of Service: 04/16/22 [facility] echo transthoracic: Chest Pain Copies to: LORRIE Rizzo MD Height: 63 in Weight: 205 lb Performed By: Ivonne Weeks RDCS BSA: 2.0 m2 BP: 102/50 mmHg HR: 69 Reason For Study: Chest Pain History: COVID, [place], HTN, Hyperlipidemia, Cancer, PCI, Family history: CAD, [...] By: Tammy Suarez MD 04/16/22 0950 Normal [facility] Lipid Panelon 04-16-2022 Cholesterol [Mass/Vol] 90 mg/dL Low 140-200 [facility] Comment on above: Result Comment: Chol less than 200 mg/dl low risk Chol 201-239 mg/dl borderline risk Chol 240 mg/dl and greater high risk Performed By: #### C OVID 19 [facility], COVID-19 CHELSEY JACOBSEG #### [facility] [address] Cholesterol in HDL [Mass/Vol] 26 mg/dL Low 35-85 [facility] Comment on above: Result Comment: HDL CHOL ATP-III CLASSIFICATION Cardiovascular Risk HDL > or equal to 60 mg/dL LOW HDL < 40 mg/dL HIGH Performed By: #### C OVID 19 [facility], COVID-19 ARLENE, SOFIANEG #### [facility] [address] [place] [address] [place] Cholesterol.total/Cho lesterol in HDL [Mass ratio] 3.5 {ratio} Normal <5.0 [facility] Comment on above: Result Comment: PERF ORMED BY: [place] [address] PATHOLOGIST MARRIAGE THERAPIST CUCA VOGT M.D. Performed By: #### C OVID 19 [facility], COVID- ARLENE, SOFIANEG #### [facility] [address] LDL Cholesterol,Calculate d 48 mg/dL Normal 0-100 [facility] Comment on above: Result Comment: LDL ATP III CLASSIFICATION LDL less than 100 mg/dL Optimal LDL 100-129 mg/dL Near or above optimal LDL 130-159 mg/dL Borderline high LDL 160-189 mg/dL High LDL greater than 189 mg/dL Very high Performed By: #### C OVID 19 [facility], COVID- ARLENE, SOFIANEG #### [facility] [address] Triglyceride w/Reflex 81 mg/dL Normal 35-149 [facility] Comment on above: Result Comment: TRIG ATP III CLASSIFICATION TRIG less than 150 mg/dL Normal TRIG 150-199 mg/dL Borderline high TRIG 200-500 mg/dL High TRIG greater than 500 mg/dL Very high Standard traceable to the Center for Disease Conrtrol and Prevention (CDC) test method. Performed By: #### C OVID 19 [facility], COVID- ARLENE, SOFIANEG #### [facility] [address] VLDL CHOLESTEROL 16 mg/dL Normal [facility] Comment on above: Performed By: #### C OVID 19 [facility], COVID- ARLENE, SOFIANEG #### [facility] [address] [place] [id number] [place] Partial Thromboplastin Timeo n 04-16-2022 aPTT Coag (Bld) [Time] 89.2 s High 25.1-36.5 [facility] Comment on above: Result Comment: PERF ORMED BY: [place] [address] PATHOLOGIST MARRIAGE THERAPIST CUCA VOGT M.D. Performed By: #### P TT #### [address] aPTT Coag (Bld) [Time] 38.0 s High 25.1-36.5 [facility] Comment on above: Order Comment: List the anticoagulant: HEPARIN, UNFRACTIONATED Result Comment: PERF ORMED BY: [place] [address] PATHOLOGIST MARRIAGE THERAPIST CUCA VOGT M.D. Performed By: #### C OVID 19 [facility], COVID-19 ARLENE, SOFIANEG #### [place] [id number] [facility] aPTT Coag (Bld) [Time] 31.6 s Normal 25.1-36.5 [facility] Comment on above: Result Comment: PERF ORMED BY: [place] [address] PATHOLOGIST MARRIAGE THERAPIST CUCA VOGT M.D. Performed By: #### H S TROP #### [address] Prothrombin Time INRon 04-16 INR Coag (PPP) [Relative time] 1.0 {INR} Normal [facility] Comment on above: Result Comment: INR Therapeutic [...] Performed By: #### H S TROP #### [address] PT Coag (PPP) [Time] 11.3 s Normal 9.0-12.9 [facility] Comment on above: Performed By: #### H S TROP #### [address] Scan and CBCon 04-16-2022 Basophils (Bld) [#/Vol] 0.1 10*3/uL Normal 0.0-0.2 [facility] Comment on above: Performed By: #### H S TROP #### [address] Basophils/100 WBC (Bld) 1.4 % Normal . [facility] Comment on above: Performed By: #### H S TROP #### [address] Eosinophils (Bld) [#/Vol] 0.2 10*3/uL Normal 0.0-0.45 [facility] Comment on above: Performed By: #### H S TROP #### [address] Eosinophils/100 WBC (Bld) 1.5 % Normal . [facility] Comment on above: Performed By: #### H S TROP #### [address] Erythrocyte distribution width (RBC) [Ratio] 17.9 % High 11.9-15.3 [facility] Comment on above: Performed By: #### H S TROP #### [address] Hematocrit (Bld) [Volume fraction] 36.9 % Normal 34.0-46.4 [facility] Comment on above: Performed By: #### H S TROP #### [address] Hemoglobin (Bld) [Mass/Vol] 11.7 g/dL Low 11.8-15.4 [facility] Comment on above: Performed By: #### H S TROP #### [address] Lymphocytes (Bld) [#/Vol] 2.0 10*3/uL Normal 1.00-4.8 [facility] Comment on above: Performed By: #### H S TROP #### [address] Lymphocytes/100 WBC (Bld) 19.2 % Normal . [facility] Comment on above: Performed By: #### H S TROP #### [address] MCH (RBC) [Entitic mass] 25.7 pg Normal 24.7-34.3 [facility] Comment on above: Performed By: #### H S TROP #### [address] MCV (RBC) [Entitic vol] 80.9 fL Normal 80-100 [facility] Comment on above: Performed By: #### H S TROP #### [address] Mean Corpuscular HGB Conc 31.8 g/dL Low 32.0-35.0 [facility] Comment on above: Performed By: #### H S TROP #### [place] [address] [place] Monocytes (Bld) [#/Vol] 0.5 10*3/uL Normal 0.0-0.8 [facility] Comment on above: Performed By: #### H S TROP #### [address] Monocytes/100 WBC (Bld) 4.5 % Normal . [facility] Comment on above: Performed By: #### H S TROP #### [address] Neutrophils (Bld) [#/Vol] 7.8 10*3/uL High 1.8-7.7 [facility] Comment on above: Performed By: #### H S TROP #### [address] Neutrophils/100 WBC (Bld) 73.4 % Normal . [facility] Comment on above: Performed By: #### H S TROP #### [place] [address] [place] Nucleated RBC/100 WBC (Bld) [Ratio] 0.0 % Normal 0-0.5 [facility] Comment on above: Performed By: #### H S TROP #### [address] Platelet Estimate Normal Normal Normal [facility] Comment on above: Performed By: #### H S TROP #### [address] Platelet mean volume (Bld) [Entitic vol] 8.7 fL Normal 6.3-10.7 [facility] Comment on above: Performed By: #### H S TROP #### [address] Platelet Morphology Normal Normal Normal [facility] Comment on above: Result Comment: PERF ORMED BY: [place] [address] PATHOLOGIST MARRIAGE THERAPIST CUCA VOGT M.D. Performed By: #### H S TROP #### [address] Platelets (Bld) [#/Vol] 269 10*3/uL Normal 150-450 [facility] Comment on above: Performed By: #### H S TROP #### [address] RBC (Bld) [#/Vol] 4.56 10*6/uL Normal 3.60-5.00 [facility] Comment on above: Performed By: #### H S TROP #### [address] WBC (Bld) [#/Vol] 10.6 10*3/uL Normal 4.5-11.0 [facility] Comment on above: Performed By: #### H S TROP #### [address] Arlene Ag Negativeon 04-16-20 Arlene Ag Negative Negative Normal Negative [facility] Comment on above: Result Comment: This is a duplicate Arlene SARS Antigen (SANTIAGO) result to be used for statistical tracking purpose only. PERFORMED BY: [place] [address] PATHOLOGIST MARRIAGE THERAPIST CUCA VOGT M.D. Performed By: #### C OVID 19 [facility], COVID-19 ARLENE, SOFIANEG #### [place] [id number] [place] Troponin I High Sensitivityo n 04-16-2022 Troponin I High Sensitivity 1946 pg/mL Off scale high 0-15 [facility] Comment on above: Result Comment: Resu lts called at 1106 on 04/16/22 PERFORMED BY: [place] [address] PATHOLOGIST MARRIAGE THERAPIST CUCA VOGT M.D. Performed By: #### C OVID 19 [facility], COVID-19 ARLENE, SOFIANEG #### [place] [id number] [place] Troponin I High Sensitivity 104 pg/mL Off scale high 0-15 [facility] Comment on above: Result Comment: Resu lts called at 0439 on 04/16/22 PERFORMED BY: [place] [address] PATHOLOGIST MARRIAGE THERAPIST CUCA VOGT M.D. Performed By: #### H S TROP #### [address] [address] [facility] Troponin I High Sensitivity 13 pg/mL Normal 0-15 [facility] Comment on above: Result Comment: PERF ORMED BY: [place] [address] PATHOLOGIST MARRIAGE THERAPIST CUCA VOGT M.D. Performed By: #### C OVID 19 [facility], COVID19 ARLENE, SOFIANEG #### [place] [id number] [place] XR chest 1V portableon 04-16 XR chest 1V portable [facility] Main [place] [address] [place] [address] XRay Report Signed Patient: Kusum Huerta MR#: [id number] 01 : 1950 Acct:[id number] Age/Sex: 72 / F ADM Date: 04/16/22 Loc: Room: 6Z2144-7 Type: ADM IN Attending Dr: Kali Helton MD Ordering Provider: Maxine Short Jr, MD [...] Parish Muir M.D.04/16/2022 8:37 AM Dictation Location: [place] [address] Transcribed By: [facility] 04/16/22 0837 Dictated By: Parish Muir DO 04/16/22 0835 Signed By: 04/16/22 0837 Normal [facility] COVID Quick Testingon 2020 Result Positive [employer] Other Automated blood platelet cou nt (count/volume)on 03-04-2021 Platelets (Bld) [#/Vol] 249 10*3/uL 150-450 [facility] Automated blood platelet oracio n volume measurementon 03-04-2021 Platelet mean volume (Bld) [Entitic vol] 8.2 fL 6.3-10.7 [facility] Automated erythrocyte distri bution width ratioon 03-04-2021 Erythrocyte distribution width (RBC) [Ratio] 17.4 % 11.9-15.3 [facility] Automated erythrocyte mean c orpuscular hemoglobin (mass per erythrocyte)on 03-04-2021 MCH (RBC) [Entitic mass] 27.2 pg 24.7-34.3 [facility] Automated erythrocyte mean c orpuscular hemoglobin concentration measurement (mass/volon 03-04-2021 MCHC (RBC) [Mass/Vol] 32.7 g/dL 32.0-35.0 [facility] Automated erythrocyte mean c orpuscular volumeon 03-04-2021 MCV (RBC) [Entitic vol] 83.2 fL 80-100 [facility] Blood erythrocytes automated count (number/volume)on 03-04-2021 RBC (Bld) [#/Vol] 3.83 10*6/uL 3.60-5.00 [facility] Blood hemoglobin measurement (mass/volume)on 03-04-2021 Hemoglobin (Bld) [Mass/Vol] 10.4 g/dL 11.8-15.4 [facility] Blood leukocytes automated c ount (number/volume)on 03-04-2021 WBC (Bld) [#/Vol] 9.9 10*3/uL 3.8-11.6 [facility] Body fluid albumin measureme nt (mass/volume)on 03-04-2021 Albumin (Body fld) [Mass/Vol] 3.6 g/dL 3.2-5.5 [facility] Estimated glomerular filtrat ion rate (GFR) non- Americanon 03-04-2021 GFR/1.73 sq M predicted among non-blacks MDRD (S/P/Bld) [Vol rate/Area] 27 mL/Min [facility] Hematocrit [Volume Fraction] of Blood by Automated counton 03-04-2021 Hematocrit (Bld) [Volume fraction] 31.9 % 34.0-46.4 [facility] Otheron 03-04-2021 GFR/1.73 sq M.predicted MDRD (S/P/Bld) [Vol rate/Area] 33 mL/Min [facility] Comment on above: GFR estimated refere nce range: According to KDOQI guidelines, <60 ml/min/1.73m2 is sufficient to diagnose a patient with chronic kidney disease. Pharmacy Creatinine Clearance (Chem N/A [facility] Protein [Mass/volume] in Ser um or Plasmaon 03-04-2021 Protein [Mass/Vol] 6.6 g/dL 6.1-7.9 [facility] Serum globulin measurement b y calculation (mass/volume)on 03-04-2021 Globulin (S) [Mass/Vol] 3.0 g/dL [facility] Serum or plasma alanine fleming otransferase measurement without P-5'-P (enzymatic activion 03-04-2021 ALT No additional P-5'-P [Catalytic activity/Vol] 12 U/L 10-60 [facility] Serum or plasma albumin/glob ulin mass ratioon 03-04-2021 Albumin/Globulin [Mass ratio] 1.2 {ratio} [facility] Serum or plasma alkaline greyson sphatase measurement (enzymatic activity/volume)on 03-04-2021 ALP [Catalytic activity/Vol] 155 U/L 32-92 [facility] Serum or plasma aspartate am inotransferase measurement (enzymatic activity/volume)on 03-04-2021 AST [Catalytic activity/Vol] 12 U/L 10-42 [facility] Serum or plasma calcium terence urement (mass/volume)on 03-04-2021 Calcium [Mass/Vol] 8.8 mg/dL 8.2-10.2 [facility] Serum or plasma chloride oracio surement (moles/volume)on 03-04-2021 Chloride [Moles/Vol] 104 mmol/L 95-114 [facility] Serum or plasma creatinine m easurement with calculation of estimated glomerular filtron 03-04-2021 Creatinine [Mass/Vol] 1.82 mg/dL 0.44-1.03 [facility] Serum or plasma glucose terence urement (mass/volume)on 03-04-2021 Glucose [Mass/Vol] 109 mg/dL 70-100 [facility] Comment on above: ADA recommended refe rence rangeRandom Glucose Reference Range is dependent on time and content of last meal. Glucose of more than 200 mg/dL in a nonstressed, ambulatory subject supports the diagnosis of Diabetes Mellitus. Serum or plasma potassium me asurement (moles/volume)on 03-04-2021 Potassium [Moles/Vol] 5.6 mmol/L 3.5-5.1 [facility] Serum or plasma sodium measu rement (moles/volume)on 03-04-2021 Sodium [Moles/Vol] 135 mmol/L 136-146 [facility] Serum or plasma total biliru bin measurement (mass/volume)on 03-04-2021 Bilirubin [Mass/Vol] 1.0 mg/dL 0.3-1.2 [facility] Serum or plasma total carbon dioxide measurement (moles/volume)on 03-04-2021 CO2 [Moles/Vol] 23.9 mmol/L 22.0-30.0 [facility] Serum or plasma urea nitroge n measurement (mass/volume)on 03-04-2021 Urea nitrogen [Mass/Vol] 37 mg/dL 08-15 [facility] Vital Signs Date Time Vital Sign Value Performing Clinician Facility 08-20-2023 11:08-0400 Body height 160.02 cm James Jasso [facility] Work Phone: [facility] 600 DO Work Phone: 08-20-2023 11:08-0400 Body mass index (BMI) [Ratio] Medical Reason Not Done James Jasso [facility] Work Phone: [facility] 600 DO Work Phone: 08-20-2023 11:08-0400 Diastolic blood pressure 52 mm[Hg] James Jasso [facility] Work Phone: [facility] 600 DO Work Phone: 08-20-2023 11:08-0400 Heart rate 70 /min James Jasso [facility] Work Phone: [facility] 600 DO Work Phone: 08-20-2023 11:08-0400 Systolic blood pressure 110 mm[Hg] James Jasso [facility] Work Phone: [facility] 600 DO Work Phone: 04-30-2022 10:57-0400 Body height 160.02 cm James Jasso [facility] Work Phone: [facility] 250 DO Work Phone: 04-30-2022 10:57-0400 Body mass index (BMI) [Ratio] 36.67 kg/m2 James Pereira Work Phone: [facility] 250 DO Work Phone: 04-30-2022 10:57-0400 Body surface area Derived from formula 1.96 m2 James Pereira Work Phone: [facility] 250 DO Work Phone: 04-30-2022 10:57-0400 Body weight 93.9 kg James Pereira Work Phone: [facility] 250 DO Work Phone: 04-30-2022 10:57-0400 Diastolic blood pressure 50 mm[Hg] James Pereira Work Phone: [facility] 250 DO Work Phone: 04-30-2022 10:57-0400 Heart rate 64 /min James Pereira Work Phone: [facility] 250 DO Work Phone: 04-30-2022 10:57-0400 Systolic blood pressure 120 mm[Hg] James Pereira Work Phone: [facility] 250 DO Work Phone: 04-16-2022 00:00-0400 60 1 Ingrid Ben DO Work Phone: [facility] 250 DO Work Phone: Comment on above: [id number] 10-12-2021 14:30-0500 Body height Maxine [place] Other [facility] Other 10-12-2021 14:30-0500 Body mass index (BMI) [Ratio] 36.61 kg/m2 Maxine [place] Other [facility] [employer] Other 10-12-2021 14:30-0500 Body temperature 98.7 [degF] Maxine Sawyer Other [employer] Other 10-12-2021 14:30-0500 Body weight 99.79 kg Maxine Sawyer Other [employer] Other 10-12-2021 14:30-0500 Diastolic blood pressure 58 mm[Hg] Maxine Sawyer Other [employer] Other 10-12-2021 14:30-0500 SaO2% (BldA) [Mass fraction] 92 % Maxine Sawyer Other [employer] Other 10-12-2021 14:30-0500 Systolic blood pressure 94 mm[Hg] Maxine Sawyer Other [employer] Other Encounters Encounter Date Encounter Type Care Provider Facility Start: 12-02-2023 End: 12-02-2023 ambulatory SHAIKH OTILIA Not Available Start: 11-25-2023 Orders Only Not In System Ref Prov [facility] General Surgery Start: 11-19-2023 End: 11-24-2023 Emergency department patient visit JAMES PEREIRA [facility] Start: 11-12-2023 End: 11-12-2023 ambulatory ZENA ESPINOSA Not Available Start: 08-20-2023 Office outpatient vi sit 25 minutes James Pereira Work Phone: [facility] 600 DO Work Phone: Start: 08-20-[address] Ingrid Ibarra II Facility: Start: 12-27-2022 End: 12-27-2022 ambulatory LARA EDOUARD Facility: Start: 06-17-2022 Patient encounter procedure James Pereira Work Phone: [facility] 250 DO Work Phone: Start: 04-30-2022 Office outpatient vi sit 25 minutes James Pereira Work Phone: [facility] 250 DO Work Phone: Start: 04-22-2022 Patient encounter procedure Ingrid Contreras DO Work Phone: [facility] 250 DO Work Phone: Start: 04-16-2022 End: 04-18-2022 Evaluation and management of inpatient James Pereira Facility:[facility] Start: 10-12-2021 End: 10-12-2021 ambulatory [address] Sawyer Other [facility] Other Start: 10-12-2021 Office outpatient vi sit 15 minutes Maxine Sawyer [facility] Start: 03-04-2021 End: 03-04-2021 Patient encounter procedure James Pereira -Lab [facility] Start: 07-22-2017 Ambulatory INGRID IBARRA Facil [id number] Procedures Date Procedure Procedure Detail Performing Clinician Start: 11-23-2023 MULTIPLE LABS Not In Sy stem Ref Prov Start: 11-23-1979 Total colonoscopy Willi am Ben DO Work Phone: Appendectomy James E Bristo l Work Phone: Arthroplasty of knee James Jasso [facility] Work Phone: Cardiac catheterization Will rey Ben DO Work Phone: Cholecystectomy James E Any stol Work Phone: Hysterectomy James E Bristo l Work Phone: Removal of thrombus James Jasso [facility] Work Phone: Surgical procedure o n eye proper James Jasso [facility] Work Phone: Plan of Treatment Date Care Activity Detail Author Start: 12-25-2031 DTaP,Tdap and Td Vaccines (2 - Td or Tdap) DTaP,Tdap and Td Vaccines (2 - Td or Tdap) [facility] Start: 07-24-2023 Influenza vaccination Influenza Vaccine [facility] Start: 07-10-2022 FUV, Provider: Ingrid Ibarra, Status: Pen, Time: 10:50 AM FUV, Provider: Ingrid Ibarra, Status: Pen, Time: 10:50 AM [facility] 250 DO Work Phone: Start: 04-30-2022 FUV, Provider: Cristal Grant, Status: Pen, Time: 10:30 AM FUV, Provider: Cristal Grant, Status: Pen, Time: 10:30 AM [facility] 250 DO Work Phone: Start: 01-15-2022 Adult BMI Screening Adult BMI Screening [facility] Start: 2015 Fall Risk Screening Fall Risk Screening [facility] Start: 2000 Administration of varicella zoster vaccine Zoster (Shingles) Vaccine (1 of 2) [facility] Start: 1962 Depression Screening Depression Screening [facility] Start: 1962 Tobacco Screening Tobacco Screening [facility] Start: 1950 Medicare Annual Wellness Visit Medicare Annual Wellness Visit [facility] Immunizations Immunization Date Immunization Notes Care Provider Grover cintron 12-25-2021 tetanus toxoid, redu zak diphtheria toxoid, and acellular pertussis vaccine, adsorbed James E [facility] Work Phone: [facility] 250 DO Work Phone: 09-11-2020 influenza virus vacc ine, unspecified formulation James E [facility] [place] Work Phone: [facility] 250 DO Work Phone: 09-08-2020 Fluzone QIV High-Dos e 65YR+ James [facility] 09-08-2020 influenza virus vacc ine, unspecified formulation Not Ref Prov [facility] 10-14-2019 influenza, high dose seasonal, preservative-free James [facility] 07-24-2017 pneumococcal polysaccharide vaccine, 23 valent [place] E [facility] Work Phone: -[facility] 250 DO Work Phone: 08-28-2015 influenza, high dose seasonal, preservative-free James Pereira Work Phone: [facility] 250 DO Work Phone: influenza virus vacc ine, unspecified formulation [facility]: [facility] Work Phone: Comment on above: Aug 20122012 Payers Date Payer Category Payer Medicare [employer] MED[employer]ARE UHC MEDICARE ADVANTAGE PPO [id number] 2023-Present [phone] [address] [address] [place] [address] [id number] 2023 Private Health Insurance [id number] 2022 Medicare [id number] 2022 Private Health Insurance [id number] 2022 Self-pay [id number] 1959 Private Health Insurance [id number] 1950 Unknown [id number] 1950 Unknown [id number] 1950 Unknown [id number] 1950 Unknown [id number] 1950 Unknown [id number] Private Health Insurance [id number] Unknown [employer] Unknown [id number] Social History Date Type Detail Facility Start: 07-05-2018 End: 10-02-2020 Tobacco smoking status NH[facility] Start: 1950 Sex Assigned At Female F [facility] Start: 12-18-2020 End: 01-15-2021 No illicit drug use No illicit drug use [facility] 250 DO Work Phone: Comment on above: Quit 1993; 4 cups tea daily; Start: 12-18-2020 End: 01-15-[address] 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) [facility] Start: 1950 Sex Assigned At Not on file P [employer] [facility] Procedure Code Equipment Code Equipment Original Text Equipment Identifier Dates [facility] Start: 10-13-2019 [id number] [facility] Start: 10-13-2019 Goals Date Patient Goal Desired [...] by: RODERICK ESTRELLA Date: 2022-12-27 15:58 [facility] Clinical Note 12-27-2022 Note Date & Type [...] by: RODERICK ESTRELLA Date: 2022-12-27 15:58 [facility] Evaluation note 10-12-2021 Note Date & Type [...] Patient care instructions given in writting by [facility] Care At Home document. [employer] Other History general Narrative - Reported Note Date & Type Note Facility History general Narrative - Reported Type Medical History hypertension Medical History chronic kidney disease stage 3 Surgical History gall bladder Surgical History appendectomy Surgical History knee replacement, left Surgical History HEART CATH WITH STENT PLACEMENT X1 Hospitalization History see above Hospitalization History URINARY TRACT INFECTION 05/2020 Hospitalization History BLOOD PRESSURE ISSUES [facility] [employer] Other History of Present illness Narrative Note [...] medication regimen. She denies medication side effects. [facility] 250 DO Work Phone: History of Present [...] diet and weight loss were again advocated. [facility] Work Phone: Instructions Note Date & Type Note Facility Instructions Not on filedocumented in this en counter [facility] Summary Purpose Family History No [...] pain. * Patient was recently hospitalized at [facility]. The patient was seen in Cardiology consult with subsequent cardiovascular management by [facility]. Hospitalization records have been reviewed. * Reason for Cardiology Consultation: ACS * Consulting Chain Saw Operator: Dr. Contreras * Cardiovascular testing: cardiac cath [...] section and content) DATE CREATED AUTHOR 05/19/[address] [facility] DATE CREATED AUTHOR AUTHOR'S ORGANIZ ATION 12/27/2022 [facility] DATE CREATED AUTHOR AUTHOR'S ORGANIZ ATION 12/29/2022 [facility] DATE CREATED AUTHOR AUTHOR'S ORGANIZ ATION 08/28/2023 [employer] DATE CREATED AUTHOR AUTHOR'S ORGANIZ ATION 10/07/2023 [facility] DATE CREATED AUTHOR AUTHOR'S ORGANIZ ATION 11/24/2023 [facility] DATE CREATED AUTHOR AUTHOR'S ORGANIZ ATION 12/04/2023 [facility] EPIC REASON FOR VISIT (unrecogniz ed section and content) #13 NOT VACCINATED, NO POS C OVID EXP, COUGH, CONGESTION, FEVER Care Teams (unrecognized sec tion and content) 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 [employer] provides no warranty or guarantee of the accuracy or completeness of information in this document.
== END 2023-12-12 13:51 | disposition home or self-care (01) ==
LOC: ER 13:19
PROVIDERS: Emergency Provider Emergency Medicine; PCP Internal Medicine
DX: N39.0 Urinary tract infection, site not specified (principal); R53.1 Weakness; I25.2 Old myocardial infarction; I13.0 Hypertensive heart and chronic kidney disease with heart failure and stage 1 through stage 4 chronic kidney disease, or unspecified chronic kidney disease; I25.10 Atherosclerotic heart disease of native coronary artery without angina pectoris; I50.32 Chronic diastolic (congestive) heart failure; J44.9 Chronic obstructive pulmonary disease, unspecified; N18.9 Chronic kidney disease, unspecified; F11.91 Opioid use, unspecified, in remission; M51.36 Other intervertebral disc degeneration, lumbar region; Z79.899 Other long term (current) drug therapy; Z87.891 Personal history of nicotine dependence; Z95.5 Presence of coronary angioplasty implant and graft; Z90.710 Acquired absence of both cervix and uterus; Z96.652 Presence of left artificial knee joint; Z90.49 Acquired absence of other specified parts of digestive tract
CPT/HCPCS: 36415; 70450; 80053; 81001; 83880; 84484; 85025; 87086; 87150; 87186; 93005; 96374; 99285; J2930

== ENCOUNTER 2023-12-17 10:40 | Outpatient (OUT) | payer MEDICARE, SELFPAY ==
--- OUTSIDE RECORDS SUMMARY | 2023-12-17 10:44 | XMS_ITS | CCD ---
Author Name Unknown Address [address] [place] [address] Organization [facility] Care Team Providers Care Pediatric Physician Assistant Name Role Phone INGRID IBARRA Unavailable Unavailable [...] 0 Refills: 0 Ordered: 30-Apr-2022 DO Active [id number] 200 actuat albuterol 0.09 mg/actuat metered dose [...] October 02, 2020 3:31pm 168 hr cloNIDine 0.48627 mg/hr transdermal system (2 sources) Central alpha-2 [...] Quantity: 90 Refills: 3 Ordered: 20-Aug-2023 Ingrid Ibrara MD Start : 20-Aug-2023 Active Start: 04-20-2018 [...] medications] Episodic Other aftercare (1 source) [facility] [place] [facility] (current) drug therapy; Translations: [[facility] [...] Unclassified (1 source) Athscl heart disease of [place] coronary artery w/o ang pctrs / I25.10(ICD-9) [...] Multiple labsOrdered By: Maureen Eckert on 11-23-2023 [employer] Height or Weight NOT Doneon 08-20-2023 Adult depression screening assessment No [facility] [employer] DO Work Phone: Fall risk assessment a) No falls within the last year [facility] [employer] 600 DO Work Phone: Office Visit (Cardiology)on 08-20-2023 Follow-up visit Diagnoses/Problems Assessed Mixed hyperlipidemia (272.2) (E78.2) Essential hypertension (401.9) (I10) Atherosclerosis of [place] coronary artery without angina pectoris (414.01) (I25.10) Status post angioplasty (V45.89) (Z98.62) Shortness of breath (786.05) (R06.02) Former smoker (V15.82) (Z87.891) Quit 1993 Orders Atherosclerosis of [place] coronary artery without angina pectoris, Status post [...] Former smoker Tobacco Use Screening; Status:Complete; Done: [id number] Unlinked Stop: amLODIPine Besylate 10 MG Oral [...] negative for complaint. Vitals Vital Signs Recorded: [id number] 11:08AM Heart Rate70, L Radial [id number], LUE, Sitting Kvrbpekny17, LUE, Sitting Height5 ft 3 in Height [...] by: CHARLEY LUCAS Date: 2022-12-27 15:51 Normal [facility] XR RIBS LT PA Waqar 3 XR [...] calcified granuloma in the right lung base. [place] screws noted in the right humeral head. IMPRESSION: 1. No acute rib fracture identified. 2. No acute cardiopulmonary process. Electronically authenticated by: MARLON METCALF Date: 2022-12-27 15:50 Normal [facility] Tobacco Screening.on 022 Adult depression screening assessment No [facility] 250 DO Work Phone: Fall risk assessment a) No falls within the last year [facility] 250 DO Work Phone: Tobacco use status [facility] b) No [facility] 250 DO Work Phone: Basic Metabolic Panelon 03-24 Calcium [Mass/Vol] 8.9 mg/dL Normal 8.2-10.2 [facility] Comment on above: Performed By: #### C BC, BMP #### [facility] [address] [place] [address] [place] Chloride [Moles/Vol] 106 mmol/L Normal 95-114 [facility] Comment on above: Performed By: #### C BC, BMP #### [facility] [address] [place] [address] [place] CO2 [Moles/Vol] 22.3 mmol/L Normal 22.0-30.0 [facility] Comment on above: Performed By: #### C BC, BMP #### [address] Creatinine [Mass/Vol] 1.42 mg/dL High 0.44-1.03 [facility] Comment on above: Performed By: #### C BC, BMP #### [address] Creatinine Clr Calc Pharmacy 38.78 [facility] Comment on above: Result Comment: PERF ORMED BY: [place] [address] PATHOLOGIST ELECTRICAL [employer]SEMBLY SUPERVISOR CUCA VOGT M.D. Performed By: #### C BC, BMP #### [address] Estimated GFR ( Jasmin 44 [facility] Comment on above: Result Comment: GFR estimated reference range: According to KDOQI guidelines, <60 ml/min/1.73m2 is sufficient to diagnose a patient with chronic kidney disease. Performed By: #### C BC, BMP #### [place] [address] [place] Estimated GFR (Non- Am 36 [facility] Comment on above: Performed By: #### C BC, BMP #### [address] Glucose [Mass/Vol] 107 mg/dL High 70-100 [facility] Comment on above: Result Comment: [place] Glucose Reference Range is dependent on time and content of last meal. Glucose of more than 200 mg/dL in a nonstressed, ambulatory subject supports the diagnosis of Diabetes Mellitus. ADA recommended reference range Performed By: #### C BC, BMP #### [address] Potassium [Moles/Vol] 4.2 mmol/L Normal 3.5-5.1 [facility] Comment on above: Performed By: #### C BC, BMP #### [address] Sodium [Moles/Vol] 139 mmol/L Normal 136-146 [facility] Comment on above: Performed By: #### C BC, BMP #### [address] Urea nitrogen [Mass/Vol] 16 mg/dL Normal - [facility] Comment on above: Performed By: #### C BC, BMP #### [address] Complete Blood Count Auto Di ffon 04-18-2022 Basophils (Bld) [#/Vol] 0.1 10*3/uL Normal 0.0-0.2 [facility] Comment on above: Result Comment: PERF ORMED BY: [place] [address] PATHOLOGIST ELECTRICAL ASSEMBLY SUPERVISOR CUCA VOGT M.D. Performed By: #### C BC, BMP #### [address] Basophils/100 WBC (Bld) 1.2 % Normal . [facility] Comment on above: Performed By: #### C BC, BMP #### [address] Eosinophils (Bld) [#/Vol] 0.2 10*3/uL Normal 0.0-0.45 [facility] Comment on above: Performed By: #### C BC, BMP #### [address] Eosinophils/100 WBC (Bld) 1.8 % Normal . [facility] Comment on above: Performed By: #### C BC, BMP #### [address] Erythrocyte distribution width (RBC) [Ratio] 17.9 % High 11.9-15.3 [facility] Comment on above: Performed By: #### C BC, BMP #### [address] Hematocrit (Bld) [Volume fraction] 30.9 % Low 34.0-46.4 [facility] Comment on above: Performed By: #### C BC, BMP #### [address] [place] [address] [place] Hemoglobin (Bld) [Mass/Vol] 9.9 g/dL Low 11.8-15.4 [facility] Comment on above: Performed By: #### C BC, BMP #### [facility] [address] Lymphocytes (Bld) [#/Vol] 1.0 10*3/uL Normal 1.00-4.8 [facility] Comment on above: Performed By: #### C BC, BMP #### [facility] [address] Lymphocytes/100 WBC (Bld) 11.3 % Normal . [facility] Comment on above: Performed By: #### C BC, BMP #### [address] MCH (RBC) [Entitic mass] 25.7 pg Normal 24.7-34.3 [facility] Comment on above: Performed By: #### C BC, BMP #### [address] MCV (RBC) [Entitic vol] 80.1 fL Normal 80-100 [facility] Comment on above: Performed By: #### C BC, BMP #### [address] Mean Corpuscular HGB Conc 32.0 g/dL Normal 32.0-35.0 [facility] Comment on above: Performed By: #### C BC, BMP #### [place] [address] [place] Monocytes (Bld) [#/Vol] 0.5 10*3/uL Normal 0.0-0.8 [facility] Comment on above: Performed By: #### C BC, BMP #### [place] [address] [place] Monocytes/100 WBC (Bld) 5.3 % Normal . [facility] Comment on above: Performed By: #### C BC, BMP #### [place] [id number] [place] Neutrophils (Bld) [#/Vol] 7.0 10*3/uL Normal 1.8-7.7 [facility] Comment on above: Performed By: #### C LUCIAN, BMP #### [facility] [address] [place] [address] [place] Neutrophils/100 WBC (Bld) 80.4 % Normal . [facility] Comment on above: Performed By: #### C LUCIAN, BMP #### [facility] [address] [place] [address] [place] Nucleated RBC/100 WBC (Bld) [Ratio] 0.1 % Normal 0-0.5 [facility] Comment on above: Performed By: #### C LUCIAN, BMP #### [address] Platelet mean volume (Bld) [Entitic vol] 8.1 fL Normal 6.3-10.7 [facility] Comment on above: Performed By: #### C LUCIAN, BMP #### [facility] [address] [place] [address] [place] Platelets (Bld) [#/Vol] 236 10*3/uL Normal 150-450 [facility] Comment on above: Performed By: #### C LUCIAN, BMP #### [place] [address] [place] RBC (Bld) [#/Vol] 3.86 10*6/uL Normal 3.60-5.00 [facility] Comment on above: Performed By: #### C LUCIAN, BMP #### [place] [address] [place] WBC (Bld) [#/Vol] 8.7 10*3/uL Normal 4.5-11.0 [facility] Comment on above: Performed By: #### C LUCIAN, BMP #### [place] [address] [place] ECG 12 lead ECGon 04-18-2022 ECG 12 lead ECG [facility] [address] [place] [address] [place] [address] Electrocardiograph Report Signed Patient: Kusum Huerta MR#: [id number] 01 : 1950 Acct:[id number] Age/Sex: 72 / F ADM Date: 04/16/22 Loc: Room: [address] [place] [address] Type: DIS IN Attending Dr: Nisha Crane [...] Tammy Suarez MD 0 04/18/22 1519 Normal [facility] Troponin I High Sensitivityo n 04-18-2022 Troponin I High Sensitivity 5969 pg/mL Off scale high 0-15 [facility] Comment on above: Result Comment: Resu lts called at 0615 on 04/18/22 PERFORMED BY: [place] [address] PATHOLOGIST ELECTRICAL [employer]SEMBL[employer] SUPERVISOR CUCA VOGT M.D. Performed By: #### H S TROP #### [facility] [address] Basic Metabolic Panelon 05 Calcium [Mass/Vol] 8.4 mg/dL Normal 8.2-10.2 [facility] Comment on above: Performed By: #### C OVID 19 [facility], COVID-19 [place], [place] #### [facility] [address] [place] [id number] [place] Chloride [Moles/Vol] 107 mmol/L Normal 95-114 [facility] Comment on above: Performed By: #### C OVID 19 [facility], COVID-19 [place], [place]FI[place] #### [facility] [address] CO2 [Moles/Vol] 24.3 mmol/L Normal 22.0-30.0 [facility] Comment on above: Performed By: #### C OVID 19 [facility], COVID-19 [place], [place]FI[place] #### [facility] [address] Creatinine [Mass/Vol] 1.61 mg/dL High 0.44-1.03 [facility] Comment on above: Performed By: #### C AMORITA 19 [facility], COVID-19 [place], [place]FI[place] #### [facility] [address] Creatinine Clr Calc Pharmacy 34.21 [facility] Comment on above: Result Comment: PERF ORMED BY: [place] [address] PATHOLOGIST ELECTRICAL [employer]SEMBL[employer] SUPERVISOR CUCA VOGT M.D. Performed By: #### C AMORITA 19 [facility], COVID-19 [place], SOFIANEG #### [facility] [address] Estimated GFR ( Jasmin 38 [facility] Comment on above: Result Comment: GFR estimated reference range: According to KDOQI guidelines, <60 ml/min/1.73m2 is sufficient to diagnose a patient with chronic kidney disease. Performed By: #### C AMORITA 19 [facility], COVID-19 [place], SOFI[place]G #### [facility] [address] Estimated GFR (Non- Am 31 [facility] Comment on above: Performed By: #### C AMORITA 19 [facility], COVID-19 [place], SOFI[place]G #### [facility] [address] Glucose [Mass/Vol] 126 mg/dL High 70-100 [facility] Comment on above: Result Comment: [place] Glucose Reference Range is dependent on time and content of last meal. Glucose of more than 200 mg/dL in a nonstressed, ambulatory subject supports the diagnosis of Diabetes Mellitus. ADA recommended reference range Performed By: #### C OVID 19 [facility], COVID-19 [place], [place]FI[place] #### [facility] [address] Potassium [Moles/Vol] 4.4 mmol/L Normal 3.5-5.1 [facility] Comment on above: Performed By: #### C AMORITA 19 [facility], COVID-19 [place], SOFI[place]G #### [facility] [address] Sodium [Moles/Vol] 140 mmol/L Normal 136-146 [facility] Comment on above: Performed By: #### C AMORITA 19 [facility], COVID- [place], [place]FI[place]G #### [facility] [address] Urea nitrogen [Mass/Vol] 19 mg/dL Normal 9-23 [facility] Comment on above: Performed By: #### C AMORITA 19 [facility], COVID- [place], [place]FI[place] #### [facility] [address] Complete Blood Count Auto Di ffon 04-17-2022 Basophils (Bld) [#/Vol] 0.1 10*3/uL Normal 0.0-0.2 [facility] Comment on above: Result Comment: PERF ORMED BY: [place] [address] PATHOLOGIST ELECTRICAL [employer]SEM[employer] SUPERVISOR CUCA VOGT M.D. Performed By: #### C AMORITA 19 [facility], COVID- [place], SOFI[place]G #### [facility] [address] [place] [address] [place] Basophils/100 WBC (Bld) 0.6 % Normal . [facility] Comment on above: Performed By: #### C AMORITA 19 [facility], COVID-19 [place], SOFI[place]G #### [facility] [address] Eosinophils (Bld) [#/Vol] 0.2 10*3/uL Normal 0.0-0.45 [facility] Comment on above: Performed By: #### C AMORITA 19 [facility], COVID-19 [place], SOFI[place]G #### [facility] [address] Eosinophils/100 WBC (Bld) 2.5 % Normal . [facility] Comment on above: Performed By: #### C AMORITA 19 [facility], COVID-19 [place], SOFI[place]G #### [facility] [address] Erythrocyte distribution width (RBC) [Ratio] 17.6 % High 11.9-15.3 [facility] Comment on above: Performed By: #### C AMORITA 19 [facility] [place], [place] #### [address] Hematocrit (Bld) [Volume fraction] 28.4 % Low 34.0-46.4 [facility] Comment on above: Performed By: #### C AMORITA 19 [facility], COVID-19 [place], SOFI[place]G #### [address] Hemoglobin (Bld) [Mass/Vol] 9.2 g/dL Low 11.8-15.4 [facility] Comment on above: Performed By: #### C AMORITA 19 [facility], COVID-19 [place], SOFI[place]G #### [facility] [address] [place] [address] Lymphocytes (Bld) [#/Vol] 1.3 10*3/uL Normal 1.00-4.8 [facility] Comment on above: Performed By: #### C AMORITA 19 [facility], COVID-19 [place], [place]FI[place] #### [address] Lymphocytes/100 WBC (Bld) 16.9 % Normal . [facility] Comment on above: Performed By: #### C AMORITA 19 [facility], COVID-19 [place], [place]FI[place] #### [address] MCH (RBC) [Entitic mass] 25.9 pg Normal 24.7-34.3 [facility] Comment on above: Performed By: #### C OVID 19 [facility], COVID-19 [place], [place]FI[place] #### [address] MCV (RBC) [Entitic vol] 80.3 fL Normal 80-100 [facility] Comment on above: Performed By: #### C AMORITA 19 [facility], COVID-19 [place], [place]FI[place] #### [address] Mean Corpuscular HGB Conc 32.3 g/dL Normal 32.0-35.0 [facility] Comment on above: Performed By: #### C AMORITA 19 [facility], COVID-19 [place], SOFI[place]G #### [address] Monocytes (Bld) [#/Vol] 0.5 10*3/uL Normal 0.0-0.8 [facility] Comment on above: Performed By: #### C OVID 19 [facility], COVID-19 [place], [place]FI[place] #### [address] Monocytes/100 WBC (Bld) 5.8 % Normal . [facility] Comment on above: Performed By: #### C AMORITA 19 [facility], COVID-19 [place], [place]FI[place] #### [facility] [address] [place] [address] Neutrophils (Bld) [#/Vol] 5.9 10*3/uL Normal 1.8-7.7 [facility] Comment on above: Performed By: #### C AMORITA 19 [facility], COVID-19 [place], [place]FI[place] #### [address] Neutrophils/100 WBC (Bld) 74.2 % Normal . [facility] Comment on above: Performed By: #### C AMORITA 19 [facility], COVID-19 [place], [place]FI[place] #### [address] [place] [address] [place] Nucleated RBC/100 WBC (Bld) [Ratio] 0.0 % Normal 0-0.5 [facility] Comment on above: Performed By: #### C AMORITA 19 [facility], [facility] [place], [place] #### [facility] [address] Platelet mean volume (Bld) [Entitic vol] 8.0 fL Normal 6.3-10.7 [facility] Comment on above: Performed By: #### C AMORITA 19 [facility], [place] [address] [place], SOFIANEG #### [facility] [address] Platelets (Bld) [#/Vol] 227 10*3/uL Normal 150-450 [facility] Comment on above: Performed By: #### C AMORITA 19 [facility], [place] [address] [place], [place]FI[place] #### [facility] [address] RBC (Bld) [#/Vol] 3.54 10*6/uL Low 3.60-5.00 [facility] Comment on above: Performed By: #### C AMORITA 19 [facility], [facility] [place], [place]FI[place] #### [address] WBC (Bld) [#/Vol] 7.9 10*3/uL Normal 4.5-11.0 [facility] Comment on above: Performed By: #### C AMORITA 19 [facility], [facility], [place]FIANEG #### [address] ECG 12 lead ECGon 04-17-2022 ECG 12 lead ECG [facility] [address] [place] [address] [place] [address] Electrocardiograph Report Signed Patient: Kusum Huerta MR#: [id number] 01 : 1950 Acct:[id number] Age/Sex: 72 / F ADM Date: 04/16/22 Loc: Room: [address] [place] [address] Type: DIS IN Attending Dr: Nisha Crane [...] was found Confirmed by TAMMY SUAREZ MD ([facility]) on 04/18/2022 3:19:42 PM Referred By: Electronically Signed By:TAMMY SUAREZ MD Transcribed By: MUS Signed By Tammy Suarez MD 0 04/18/22 1519 Normal [facility] Partial Thromboplastin Timeo n 04-17-2022 aPTT Coag (Bld) [Time] 62.4 s High 25.1-36.5 [facility] Comment on above: Result Comment: PERF ORMED BY: [place] [address] PATHOLOGIST ELECTRICAL ASSEMBLY SUPERVISOR CUCA VOGT M.D. Performed By: #### C OVID 19 [facility], COVID-19 [place], [place]FI[place] #### [facility] [address] [place] [id number] [facility] aPTT Coag (Bld) [Time] 49.4 s High 25.1-36.5 [facility] Comment on above: Result Comment: PERF ORMED BY: [facility] [address] [place] [address] PATHOLOGIST ELECTRICAL ASSEMBLY SUPERVISOR CUCA VOGT M.D. Performed By: #### C OVID 19 [facility], COVID-19 [place], [place]FI[place]G #### [facility] [address] [place] [phone] [place] A1C with Estimated Average G tavares 04-16-2022 Glucose [Mass/Vol] 117 mg/dL Normal [facility] Comment on above: Result Comment: PERF ORMED BY: [place] [address] PATHOLOGIST ELECTRICAL ASSEMBLY SUPERVISOR CUCA VOGT M.D. Performed By: #### C OVID 19 [facility], COVID-19 [place], [place]FI[place] #### [facility] [address] HbA1c (Bld) [Mass fraction] 5.7 % High 4.3-5.6 [facility] Comment on above: Result Comment: Incr eased risk for diabetes: 5.7 - 6.4 diabetes: >6.4 glycemic control for adults with diabetes: <7.0 Performed By: #### C OVID 19 [facility], COVID-19 [place], [place] #### [facility] [address] B-Type Natriuretic Peptideon 04-16-2022 Natriuretic peptide B (Bld) [Mass/Vol] 204.0 pg/mL High 5-100 [facility] Comment on above: Result Comment: PERF ORMED BY: [place] [address] PATHOLOGIST ELECTRICAL ASSEMBLY SUPERVISOR CUCA VOGT M.D. Performed By: #### C OVID 19 [facility], COVID-19 [place], [place]FI[place]G #### [place] [phone] [facility] Basic Metabolic Panelon 03-24 Calcium [Mass/Vol] 8.2 mg/dL Normal 8.2-10.2 [facility] Comment on above: Performed By: #### C OVID 19 [facility], COVID-19 [place], [place]FI[place] #### [facility] [address] [place] [id number] [place] Chloride [Moles/Vol] 106 mmol/L Normal 95-114 [facility] Comment on above: Performed By: #### C OVID 19 [facility], COVID-19 [place], [place]FI[place]G #### [facility] [address] [place] [phone] [place] CO2 [Moles/Vol] 19.3 mmol/L Low 22.0-30.0 [facility] Comment on above: Performed By: #### C OVID 19 [facility], COVID-19 [place], [place]FI[place]G #### [facility] [address] Creatinine [Mass/Vol] 1.52 mg/dL High 0.44-1.03 [facility] Comment on above: Performed By: #### C AMORITA 19 [facility], COVID-19 [place], [place]FI[place] #### [facility] [address] [place] [address] [place] Creatinine Clr Calc Pharmacy 36.27 [facility] Comment on above: Result Comment: PERF ORMED BY: [place] [address] PATHOLOGIST ELECTRICAL ASSEMBLY SUPERVISOR CUCA VOGT M.D. Performed By: #### C AMORITA 19 [facility], COVID-19 [place], [place]FI[place]G #### [address] Estimated GFR ( Jasmin 41 [facility] Comment on above: Result Comment: GFR estimated reference range: According to KDOQI guidelines, <60 ml/min/1.73m2 is sufficient to diagnose a patient with chronic kidney disease. Performed By: #### C AMORITA 19 [facility], COVID-19 [place], [place]FI[place] #### [facility] [address] Estimated GFR (Non- Am 34 [facility] Comment on above: Performed By: #### C AMORITA 19 [facility], COVID-19 [place], [place]FI[place]G #### [facility] [address] Glucose [Mass/Vol] 135 mg/dL High 70-100 [facility] Comment on above: Result Comment: [place] om Glucose Reference Range is dependent on time and content of last meal. Glucose of more than 200 mg/dL in a nonstressed, ambulatory subject supports the diagnosis of Diabetes Mellitus. ADA recommended reference range Performed By: #### C AMORITA 19 [facility], COVID-19 [place], [place]FI[place] #### [facility] [address] Potassium [Moles/Vol] 4.4 mmol/L Normal 3.5-5.1 [facility] Comment on above: Performed By: #### C OVID 19 [facility], COVID-19 [place], [place]FI[place] #### [facility] [address] Sodium [Moles/Vol] 135 mmol/L Low 136-146 [facility] Comment on above: Performed By: #### C OVID 19 [facility], COVID-19 [place], [place]FI[place]G #### [facility] [address] Urea nitrogen [Mass/Vol] 27 mg/dL High 9-23 [facility] Comment on above: Performed By: #### C OVID 19 [facility], COVID-19 [place], [place]FI[place]G #### [facility] [address] Calcium [Mass/Vol] 8.3 mg/dL Normal 8.2-10.2 [facility] Comment on above: Performed By: #### B MP #### [facility] [address] [place] [address] [place] Chloride [Moles/Vol] 108 mmol/L Normal 95-114 [facility] Comment on above: Performed By: #### B MP #### [facility] [address] [place] [address] CO2 [Moles/Vol] 18.3 mmol/L Low 22.0-30.0 [facility] Comment on above: Performed By: #### B MP #### [facility] [facility] [address] [place] [address] [place] Creatinine [Mass/Vol] 1.86 mg/dL High 0.44-1.03 [facility] Comment on above: Performed By: #### B MP #### [facility] [address] [place] [address] [place] Creatinine Clr Calc Pharmacy 29.64 Normal [facility] Comment on above: Result Comment: PERF ORMED BY: [place] [address] PATHOLOGIST ELECTRICAL ASSEMBLY SUPERVISOR CUCA VOGT M.D. Performed By: #### B MP #### [address] Estimated GFR ( Jasmin 32 [facility] Comment on above: Result Comment: GFR estimated reference range: According to KDOQI guidelines, <60 ml/min/1.73m2 is sufficient to diagnose a patient with chronic kidney disease. Performed By: #### B MP #### [address] Estimated GFR (Non- Am 27 [facility] Comment on above: Performed By: #### B MP #### [address] Glucose [Mass/Vol] 131 mg/dL High 70-100 [facility] Comment on above: Result Comment: [place] om Glucose Reference Range is dependent on time and content of last meal. Glucose of more than 200 mg/dL in a nonstressed, ambulatory subject supports the diagnosis of Diabetes Mellitus. ADA recommended reference range Performed By: #### B MP #### [address] Potassium [Moles/Vol] 4.9 mmol/L Normal 3.5-5.1 [facility] Comment on above: Performed By: #### B MP #### [address] Sodium [Moles/Vol] 135 mmol/L Low 136-146 [facility] Comment on above: Performed By: #### B MP #### [place] [address] [place] Urea nitrogen [Mass/Vol] 31 mg/dL High 9-23 [facility] Comment on above: Performed By: #### B MP #### [address] COVID-19 Antigenon 2 COVID-19 Antigen Healthcare [...] developed and its performance characteristic determined by [employer] and validated at [facility]. This test has not been FDA [...] for SARS Antigen by SANTIAGO PERFORMED BY: [place] [address] PATHOLOGIST ELECTRICAL ASSEMBLY SUPERVISOR CUCA VOGT M.D. Normal [facility] Comment on above: Performed By: #### C OVID 19 [facility], COVID-19 CHELSEY JACOBSEG #### [address] [facility] SARS-CoV-2 (COVID-19) RNA REN+probe Ql (Unsp spec) Negative Normal Negative [facility] Comment on above: Order Comment: Healt hcare Worker?: N Result Comment: Testing for SARS-CoV-2 by RT-PCR This test was developed and its performance characteristics determined by [employer] and validated at the [facility]. This test has not been FDA [...] is terminated or revoked sooner. PERFORMED BY: [place] [address] PATHOLOGIST ELECTRICAL ASSEMBLY SUPERVISOR CUCA VOGT M.D. Performed By: #### C OVID 19 [facility], COVID-19 ARLENE, SOFIANEG #### [address] Comprehensive Metabolic Pane guerita 04-16-2022 Albumin [Mass/Vol] 4.0 g/dL Normal 3.2-5.5 [facility] Comment on above: Performed By: #### C OVID 19 [facility], COVID-19 ARLENE, SOFIANEG #### [address] Albumin/Globulin [Mass ratio] 1.3 {ratio} Normal [facility] Comment on above: Performed By: #### C OVID 19 [facility], COVID-19 ARLENE, SOFIANEG #### [address] ALP [Catalytic activity/Vol] 157 U/L High 32-92 [facility] Comment on above: Performed By: #### C OVID 19 [facility], COVID-19 ARLENE, SOFIANEG #### [address] [place] [address] [place] ALT [Catalytic activity/Vol] 14 U/L Normal 10-60 [facility] Comment on above: Performed By: #### C OVID 19 [facility], COVID-19 ARLENE, SOFIANEG #### [facility] [address] AST [Catalytic activity/Vol] 19 U/L Normal 10-42 [facility] Comment on above: Performed By: #### C OVID 19 [facility], COVID-19 ARLENE, SOFIANEG #### [facility] [address] Bilirubin [Mass/Vol] 0.7 mg/dL Normal 0.3-1.2 [facility] Comment on above: Performed By: #### C OVID 19 [facility], COVID-19 ARLENE, SOFIANEG #### [facility] [address] Calcium [Mass/Vol] 9.2 mg/dL Normal 8.2-10.2 [facility] Comment on above: Performed By: #### C OVID 19 [facility], COVID-19 ARLENE, SOFIANEG #### [facility] [address] [place] [address] [place] Chloride [Moles/Vol] 105 mmol/L Normal 95-114 [facility] Comment on above: Performed By: #### C OVID 19 [facility], COVID-19 ARLENE, SOFIANEG #### [facility] [address] [place] [address] [place] CO2 [Moles/Vol] 16.2 mmol/L Low 22.0-30.0 [facility] Comment on above: Performed By: #### C OVID 19 [facility], COVID-19 ARLENE, SOFIANEG #### [facility] [address] [place] [address] [place] Creatinine [Mass/Vol] 2.24 mg/dL High 0.44-1.03 [facility] Comment on above: Performed By: #### C OVID 19 [facility], COVID-19 ARLENE, SOFIANEG #### [facility] [address] Creatinine Clr Calc Pharmacy 24.73 [facility] Comment on above: Result Comment: PERF ORMED BY: [place] [address] PATHOLOGIST ELECTRICAL ASSEMBLY SUPERVISOR CUCA VOGT M.D. Performed By: #### C OVID 19 [facility], COVID-19 ARLENE, SOFIANEG #### [facility] [address] Estimated GFR ( Jasmin 26 [facility] Comment on above: Result Comment: GFR estimated reference range: According to KDOQI guidelines, <60 ml/min/1.73m2 is sufficient to diagnose a patient with chronic kidney disease. Performed By: #### C OVID 19 [facility], COVID-19 ARLENE, SOFIANEG #### [address] Estimated GFR (Non- Am 21 [facility] Comment on above: Performed By: #### C OVID 19 [facility], COVID-19 ARLENE, SOFIANEG #### [facility] [address] [place] [address] Globulin (S) [Mass/Vol] 3.2 g/dL [facility] Comment on above: Performed By: #### C OVID 19 [facility], COVID- ARLENE, SOFIANEG #### [address] Glucose [Mass/Vol] 141 mg/dL High 70-100 [facility] Comment on above: Result Comment: [place] Glucose Reference Range is dependent on time and content of last meal. Glucose of more than 200 mg/dL in a nonstressed, ambulatory subject supports the diagnosis of Diabetes Mellitus. ADA recommended reference range Performed By: #### C OVID 19 [facility], COVID-19 ARLENE, SOFIANEG #### [address] Potassium [Moles/Vol] 5.5 mmol/L High 3.5-5.1 [facility] Comment on above: Performed By: #### C OVID 19 [facility], COVID-19 ARLENE, SOFIANEG #### [facility] [address] Protein [Mass/Vol] 7.2 g/dL Normal 6.1-7.9 [facility] Comment on above: Performed By: #### C OVID 19 [facility], COVID-19 ARLENE, SOFIANEG #### [facility] [address] [place] [id number] [place] Sodium [Moles/Vol] 134 mmol/L Low 136-146 [facility] Comment on above: Performed By: #### C OVID 19 [facility], COVID-19 ARLENE, SOFIANEG #### [facility] [address] Urea nitrogen [Mass/Vol] 34 mg/dL High - [facility] Comment on above: Performed By: #### C OVID 19 [facility], COVID-19 ARLENE, SOFIANEG #### [address] Creatine Kinaseon 04-16-2022 CK [Catalytic activity/Vol] 64 U/L Normal 22-269 [facility] Comment on above: Performed By: #### H S TROP #### [address] Creatinine Kinase MBon 04-16 CK.MB [Mass/Vol] 2.0 ng/mL Normal 0.6-6.3 [facility] Comment on above: Performed By: #### H S TROP #### [address] CKMB Relative Index 3.1 % High 0.00-2.50 [facility] Comment on above: Performed By: #### H S TROP #### [address] ECG 12 lead ECGon 04-16-2022 ECG 12 lead ECG [facility] [place] [address] [place] [address] Electrocardiograph Report Signed Patient: Kusum Huerta MR#: [id number] [birth year] : 1950 Acct:[id number] Age/Sex: 72 / F ADM Date: 04/16/22 Loc: Room: [address] [place] [address] Type: DIS IN Attending Dr: Nisha Crane [...] Signed By Roderick Porter DO 04/26 Normal [facility] ECG 12 lead ECG [facility] [place] [address] Electrocardiograph Report Signed Patient: Kusum Huerta MR#: [id number] : 1950 Acct:[id number] Age/Sex: 72 / F ADM Date: 04/16/22 Loc: Room: [address] [place] [address] Type: DIS IN Attending Dr: Nisha Crane [...] in v4-v6 Confirmed by MAXINE SHORT MD ([id number]) on 04/16/2022 4:40:09 AM Referred By: Electronically Signed By:MAXINE SHORT MD Transcribed By: MUS Signed By Maxine Short Jr, MD 0440 [facility] ECG 12 lead ECG [facility] Main [place] [id number] Electrocardiograph Report Signed Patient: Kusum Huerta MR#: [id number] 01 : 1950 Acct:[id number] Age/Sex: 72 / F ADM Date: 04/16/22 Loc: Room: [address] [place] [address] Type: DIS IN Attending Dr: Nisah Crane MD Ordering Provider: Maxine Short Jr, [...] Lateral leads Confirmed by MAXINE SHORT MD ([id number]) on 04/16/2022 4:38:02 AM Referred By: Electronically Signed By:MAXINE SHORT MD Transcribed By: MUS Signed By Maxine Short Jr, MD 0438 [facility] echo transthoracicon [facility] echo transthoracic [facility] Main [address] [address] Echocardiogram Signed Patient: Kusum Huerta MR#: [id number] 01 : 1950 Acct:[id number] Age/Sex: 72 / F ADM Date: 04/16/22 Loc: Room: [address] [place] [address] Type: DIS IN Attending Dr: Nisha Crane MD Ordering Provider: Shivani Etienne APRN Date of Service: 04/16/22 [facility] echo transthoracic: Chest Pain Copies to: LORRIE Rizzo MD Height: 63 in Weight: 205 lb Performed By: Ivonne Weeks RDCS BSA: 2.0 m2 BP: 102/50 mmHg HR: 69 Reason For Study: Chest Pain History: COVID, [place], HTN, Hyperlipidemia, Cancer, PCI, Family history: CAD, [...] By: Tammy Suarez MD 04/16/22 0950 Normal [facility] Lipid Panelon 04-16-2022 Cholesterol [Mass/Vol] 90 mg/dL Low 140-200 [facility] Comment on above: Result Comment: Chol less than 200 mg/dl low risk Chol 201-239 mg/dl borderline risk Chol 240 mg/dl and greater high risk Performed By: #### C OVID 19 [facility], COVID-19 CHELSEY JACOBSEG #### [facility] [address] Cholesterol in HDL [Mass/Vol] 26 mg/dL Low 35-85 [facility] Comment on above: Result Comment: HDL CHOL ATP-III CLASSIFICATION Cardiovascular Risk HDL > or equal to 60 mg/dL LOW HDL < 40 mg/dL HIGH Performed By: #### C OVID 19 [facility], COVID-19 ARLENE, SOFIANEG #### [facility] [address] [place] [address] [place] Cholesterol.total/Cho lesterol in HDL [Mass ratio] 3.5 {ratio} Normal <5.0 [facility] Comment on above: Result Comment: PERF ORMED BY: [place] [address] PATHOLOGIST ELECTRICAL ASSEMBLY SUPERVISOR CUCA VOGT M.D. Performed By: #### C OVID 19 [facility], COVID- ARLENE, SOFIANEG #### [facility] [address] LDL Cholesterol,Calculate d 48 mg/dL Normal 0-100 [facility] Comment on above: Result Comment: LDL ATP III CLASSIFICATION LDL less than 100 mg/dL Optimal LDL 100-129 mg/dL Near or above optimal LDL 130-159 mg/dL Borderline high LDL 160-189 mg/dL High LDL greater than 189 mg/dL Very high Performed By: #### C OVID 19 [facility], COVID- ARLENE, SOFIANEG #### [facility] [address] Triglyceride w/Reflex 81 mg/dL Normal 35-149 [facility] Comment on above: Result Comment: TRIG ATP III CLASSIFICATION TRIG less than 150 mg/dL Normal TRIG 150-199 mg/dL Borderline high TRIG 200-500 mg/dL High TRIG greater than 500 mg/dL Very high Standard traceable to the Center for Disease Conrtrol and Prevention (CDC) test method. Performed By: #### C OVID 19 [facility], COVID- ARLENE, SOFIANEG #### [facility] [address] VLDL CHOLESTEROL 16 mg/dL Normal [facility] Comment on above: Performed By: #### C OVID 19 [facility], COVID- ARLENE, SOFIANEG #### [facility] [address] [place] [phone] [place] Partial Thromboplastin Timeo n 04-16-2022 aPTT Coag (Bld) [Time] 89.2 s High 25.1-36.5 [facility] Comment on above: Result Comment: PERF ORMED BY: [place] [address] PATHOLOGIST ELECTRICAL ASSEMBLY SUPERVISOR CUCA VOGT M.D. Performed By: #### P TT #### [address] aPTT Coag (Bld) [Time] 38.0 s High 25.1-36.5 [facility] Comment on above: Order Comment: List the anticoagulant: HEPARIN, UNFRACTIONATED Result Comment: PERF ORMED BY: [place] [address] PATHOLOGIST ELECTRICAL ASSEMBLY SUPERVISOR CUCA VOGT M.D. Performed By: #### C OVID 19 [facility], COVID-19 ARLENE, SOFIANEG #### [place] [id number] [facility] aPTT Coag (Bld) [Time] 31.6 s Normal 25.1-36.5 [facility] Comment on above: Result Comment: PERF ORMED BY: [place] [address] PATHOLOGIST ELECTRICAL ASSEMBLY SUPERVISOR CUCA VOGT M.D. Performed By: #### H S TROP #### [address] Prothrombin Time INRon 04-16 INR Coag (PPP) [Relative time] 1.0 {INR} Normal [facility] Comment on above: Result Comment: INR [...] Performed By: #### H S TROP #### [address] PT Coag (PPP) [Time] 11.3 s Normal 9.0-12.9 [facility] Comment on above: Performed By: #### H S TROP #### [address] Scan and CBCon 04-16-2022 Basophils (Bld) [#/Vol] 0.1 10*3/uL Normal 0.0-0.2 [facility] Comment on above: Performed By: #### H S TROP #### [address] Basophils/100 WBC (Bld) 1.4 % Normal . [facility] Comment on above: Performed By: #### H S TROP #### [address] Eosinophils (Bld) [#/Vol] 0.2 10*3/uL Normal 0.0-0.45 [facility] Comment on above: Performed By: #### H S TROP #### [address] Eosinophils/100 WBC (Bld) 1.5 % Normal . [facility] Comment on above: Performed By: #### H S TROP #### [address] Erythrocyte distribution width (RBC) [Ratio] 17.9 % High 11.9-15.3 [facility] Comment on above: Performed By: #### H S TROP #### [address] Hematocrit (Bld) [Volume fraction] 36.9 % Normal 34.0-46.4 [facility] Comment on above: Performed By: #### H S TROP #### [address] Hemoglobin (Bld) [Mass/Vol] 11.7 g/dL Low 11.8-15.4 [facility] Comment on above: Performed By: #### H S TROP #### [address] Lymphocytes (Bld) [#/Vol] 2.0 10*3/uL Normal 1.00-4.8 [facility] Comment on above: Performed By: #### H S TROP #### [address] Lymphocytes/100 WBC (Bld) 19.2 % Normal . [facility] Comment on above: Performed By: #### H S TROP #### [address] MCH (RBC) [Entitic mass] 25.7 pg Normal 24.7-34.3 [facility] Comment on above: Performed By: #### H S TROP #### [address] MCV (RBC) [Entitic vol] 80.9 fL Normal 80-100 [facility] Comment on above: Performed By: #### H S TROP #### [address] Mean Corpuscular HGB Conc 31.8 g/dL Low 32.0-35.0 [facility] Comment on above: Performed By: #### H S TROP #### [place] [address] [place] Monocytes (Bld) [#/Vol] 0.5 10*3/uL Normal 0.0-0.8 [facility] Comment on above: Performed By: #### H S TROP #### [address] Monocytes/100 WBC (Bld) 4.5 % Normal . [facility] Comment on above: Performed By: #### H S TROP #### [address] Neutrophils (Bld) [#/Vol] 7.8 10*3/uL High 1.8-7.7 [facility] Comment on above: Performed By: #### H S TROP #### [address] Neutrophils/100 WBC (Bld) 73.4 % Normal . [facility] Comment on above: Performed By: #### H S TROP #### [place] [address] [place] Nucleated RBC/100 WBC (Bld) [Ratio] 0.0 % Normal 0-0.5 [facility] Comment on above: Performed By: #### H S TROP #### [address] Platelet Estimate Normal Normal Normal [facility] Comment on above: Performed By: #### H S TROP #### [address] Platelet mean volume (Bld) [Entitic vol] 8.7 fL Normal 6.3-10.7 [facility] Comment on above: Performed By: #### H S TROP #### [address] Platelet Morphology Normal Normal Normal [facility] Comment on above: Result Comment: PERF ORMED BY: [place] [address] PATHOLOGIST ELECTRICAL ASSEMBLY SUPERVISOR CUCA VOGT M.D. Performed By: #### H S TROP #### [address] Platelets (Bld) [#/Vol] 269 10*3/uL Normal 150-450 [facility] Comment on above: Performed By: #### H S TROP #### [address] RBC (Bld) [#/Vol] 4.56 10*6/uL Normal 3.60-5.00 [facility] Comment on above: Performed By: #### H S TROP #### [address] WBC (Bld) [#/Vol] 10.6 10*3/uL Normal 4.5-11.0 [facility] Comment on above: Performed By: #### H S TROP #### [address] Arlene Ag Negativeon 04-16-20 Arlene Ag Negative Negative Normal Negative [facility] Comment on above: Result Comment: This is a duplicate Arlene SARS Antigen (SANTIAGO) result to be used for statistical tracking purpose only. PERFORMED BY: [place] [address] PATHOLOGIST ELECTRICAL ASSEMBLY SUPERVISOR CUCA VOGT M.D. Performed By: #### C OVID 19 [facility], COVID-19 ARLENE, SOFIANEG #### [place] [id number] [place] Troponin I High Sensitivityo n 04-16-2022 Troponin I High Sensitivity 1946 pg/mL Off scale high 0-15 [facility] Comment on above: Result Comment: Resu lts called at 1106 on 04/16/22 PERFORMED BY: [place] [address] PATHOLOGIST ELECTRICAL ASSEMBLY SUPERVISOR CUCA VOGT M.D. Performed By: #### C OVID 19 [facility], COVID-19 ARLENE, SOFIANEG #### [place] [id number] [place] Troponin I High Sensitivity 104 pg/mL Off scale high 0-15 [facility] Comment on above: Result Comment: Resu lts called at 0439 on 04/16/22 PERFORMED BY: [place] [address] PATHOLOGIST ELECTRICAL ASSEMBLY SUPERVISOR CUCA VOGT M.D. Performed By: #### H S TROP #### [address] [address] [facility] Troponin I High Sensitivity 13 pg/mL Normal 0-15 [facility] Comment on above: Result Comment: PERF ORMED BY: [place] [address] PATHOLOGIST ELECTRICAL ASSEMBLY SUPERVISOR CUCA VOGT M.D. Performed By: #### C OVID 19 [facility], COVID19 ARL[place], SOFIANEG #### [place] [id number] [place] XR chest 1V portableon 04-16 XR chest 1V portable [facility] [place] [address] [place] [address] XRay Report Signed Patient: Kusum Huerta MR#: [id number] 01 : 1950 Acct:[id number] Age/Sex: 72 / F ADM Date: 04/16/22 Loc: Room: 1D9641-2 Type: ADM IN Attending Dr: Kali Helton [...] Parish Muir M.D.04/16/2022 8:37 AM Dictation Location: [place] [address] Transcribed By: [facility] 04/16/22 0837 Dictated By: Parish Muir DO 04/16/22 0835 Signed By: 04/16/22 0837 Normal [facility] COVID Quick Testingon 2020 Result Positive [employer] Other Automated blood platelet cou nt (count/volume)on 03-04-2021 Platelets (Bld) [#/Vol] 249 10*3/uL 150-450 [facility] Automated blood platelet oracio n volume measurementon 03-04-2021 Platelet mean volume (Bld) [Entitic vol] 8.2 fL 6.3-10.7 [facility] Automated erythrocyte distri bution width ratioon 03-04-2021 Erythrocyte distribution width (RBC) [Ratio] 17.4 % 11.9-15.3 [facility] Automated erythrocyte mean c orpuscular hemoglobin (mass per erythrocyte)on 03-04-2021 MCH (RBC) [Entitic mass] 27.2 pg 24.7-34.3 [facility] Automated erythrocyte mean c orpuscular hemoglobin concentration measurement (mass/volon 03-04-2021 MCHC (RBC) [Mass/Vol] 32.7 g/dL 32.0-35.0 [facility] [place] [facility] Automated erythrocyte mean c orpuscular volumeon 03-04-2021 MCV (RBC) [Entitic vol] 83.2 fL 80-100 [facility] Blood erythrocytes automated count (number/volume)on 03-04-2021 RBC (Bld) [#/Vol] 3.83 10*6/uL 3.60-5.00 [facility] Blood hemoglobin measurement (mass/volume)on 03-04-2021 Hemoglobin (Bld) [Mass/Vol] 10.4 g/dL 11.8-15.4 [facility] Blood leukocytes automated c ount (number/volume)on 03-04-2021 WBC (Bld) [#/Vol] 9.9 10*3/uL 3.8-11.6 [facility] Body fluid albumin measureme nt (mass/volume)on 03-04-2021 Albumin (Body fld) [Mass/Vol] 3.6 g/dL 3.2-5.5 [facility] Estimated glomerular filtrat ion rate (GFR) non- Americanon 03-04-2021 GFR/1.73 sq M predicted among non-blacks MDRD (S/P/Bld) [Vol rate/Area] 27 mL/Min [facility] Hematocrit [Volume Fraction] of Blood by Automated counton 03-04-2021 Hematocrit (Bld) [Volume fraction] 31.9 % 34.0-46.4 [facility] Otheron 03-04-2021 GFR/1.73 sq M.predicted MDRD (S/P/Bld) [Vol rate/Area] 33 mL/Min [facility] Comment on above: GFR estimated refere nce range: According to KDOQI guidelines, <60 ml/min/1.73m2 is sufficient to diagnose a patient with chronic kidney disease. Pharmacy Creatinine Clearance (Chem N/A [facility] Protein [Mass/volume] in Ser um or Plasmaon 03-04-2021 Protein [Mass/Vol] 6.6 g/dL 6.1-7.9 [facility] Serum globulin measurement b y calculation (mass/volume)on 03-04-2021 Globulin (S) [Mass/Vol] 3.0 g/dL [facility] Serum or plasma alanine fleming otransferase measurement without P-5'-P (enzymatic activion 03-04-2021 ALT No additional P-5'-P [Catalytic activity/Vol] 12 U/L 10-60 [facility] Serum or plasma albumin/glob ulin mass ratioon 03-04-2021 Albumin/Globulin [Mass ratio] 1.2 {ratio} [facility] Serum or plasma alkaline greyson sphatase measurement (enzymatic activity/volume)on 03-04-2021 ALP [Catalytic activity/Vol] 155 U/L 32-92 [facility] Serum or plasma aspartate am inotransferase measurement (enzymatic activity/volume)on 03-04-2021 AST [Catalytic activity/Vol] 12 U/L 10-42 [facility] Serum or plasma calcium terence urement (mass/volume)on 03-04-2021 Calcium [Mass/Vol] 8.8 mg/dL 8.2-10.2 [facility] Serum or plasma chloride oracio surement (moles/volume)on 03-04-2021 Chloride [Moles/Vol] 104 mmol/L 95-114 [facility] Serum or plasma creatinine m easurement with calculation of estimated glomerular filtron 03-04-2021 Creatinine [Mass/Vol] 1.82 mg/dL 0.44-1.03 [facility] [place] [facility] Serum or plasma glucose terence urement (mass/volume)on 03-04-2021 Glucose [Mass/Vol] 109 mg/dL 70-100 [facility] Comment on above: ADA recommended refe rence rangeRandom Glucose Reference Range is dependent on time and content of last meal. Glucose of more than 200 mg/dL in a nonstressed, ambulatory subject supports the diagnosis of Diabetes Mellitus. Serum or plasma potassium me asurement (moles/volume)on 03-04-2021 Potassium [Moles/Vol] 5.6 mmol/L 3.5-5.1 [facility] Serum or plasma sodium measu rement (moles/volume)on 03-04-2021 Sodium [Moles/Vol] 135 mmol/L 136-146 [facility] Serum or plasma total biliru bin measurement (mass/volume)on 03-04-2021 Bilirubin [Mass/Vol] 1.0 mg/dL 0.3-1.2 [facility] Serum or plasma total carbon dioxide measurement (moles/volume)on 03-04-2021 CO2 [Moles/Vol] 23.9 mmol/L 22.0-30.0 [facility] Serum or plasma urea nitroge n measurement (mass/volume)on 03-04-2021 Urea nitrogen [Mass/Vol] 37 mg/dL 08-15 [facility] Vital Signs Date Time Vital Sign Value Performing Clinician Facility 08-20-2023 11:08-0400 Body height 160.02 cm James Jasso Ambler Work Phone: [facility] 600 DO Work Phone: 08-20-2023 11:08-0400 Body mass index (BMI) [Ratio] Medical Reason Not Done James Jasso Ambler Work Phone: [facility] 600 DO Work Phone: 08-20-2023 11:08-0400 Diastolic blood pressure 52 mm[Hg] James Jasso Ambler Work Phone: [facility] 600 DO Work Phone: 08-20-2023 11:08-0400 Heart rate 70 /min James Jasso Ambler Work Phone: [facility] 600 DO Work Phone: 08-20-2023 11:08-0400 Systolic blood pressure 110 mm[Hg] James Jasso Ambler Work Phone: [facility] 600 DO Work Phone: 04-30-2022 10:57-0400 Body height 160.02 cm James Jasso Ambler Work Phone: [facility] 250 DO Work Phone: 04-30-2022 10:57-0400 Body mass index (BMI) [Ratio] 36.67 kg/m2 James Pereira Work Phone: [facility] 250 DO Work Phone: 04-30-2022 10:57-0400 Body surface area Derived from formula 1.96 m2 James Pereira Work Phone: [facility] 250 DO Work Phone: 04-30-2022 10:57-0400 Body weight 93.9 kg James Pereira Work Phone: [facility] 250 DO Work Phone: 04-30-2022 10:57-0400 Diastolic blood pressure 50 mm[Hg] James Pereira Work Phone: [facility] 250 DO Work Phone: 04-30-2022 10:57-0400 Heart rate 64 /min James Pereira Work Phone: [facility] 250 DO Work Phone: 04-30-2022 10:57-0400 Systolic blood pressure 120 mm[Hg] James Pereira Work Phone: [facility] 250 DO Work Phone: 04-16-2022 00:00-0400 60 1 Ingrid Ben DO Work Phone: [facility] 250 DO Work Phone: Comment on above: [id number] 10-12-2021 14:30-0500 Body height Maxine Aguada Other [facility] Other 10-12-2021 14:30-0500 Body mass index (BMI) [Ratio] 36.61 kg/m2 Maxine Aguada Other [facility] Other 10-12-2021 14:30-0500 Body temperature 98.7 [degF] Maxine Sawyer Other [facility] Other 10-12-2021 14:30-0500 Body weight 99.79 kg Maxine Sawyer Other [facility] Other 10-12-2021 14:30-0500 Diastolic blood pressure 58 mm[Hg] Maxine Sawyer Other [facility] Other 10-12-2021 14:30-0500 SaO2% (BldA) [Mass fraction] 92 % Maxine Sawyer Other [facility] Other 10-12-2021 14:30-0500 Systolic blood pressure 94 mm[Hg] Maxine Sawyer Other [facility] Other Encounters Encounter Date Encounter Type Care Provider Facility Start: 12-02-2023 End: 12-02-2023 ambulatory SHAIKH OTILIA Not Available Start: 11-25-2023 Orders Only Not In System Ref Prov [facility] Start: 11-19-2023 End: 11-24-2023 Emergency department patient visit JAMES PEREIRA [facility] Start: 11-12-2023 End: 11-12-2023 ambulatory ZENA ESPINOSA Not Available Start: 08-20-2023 Office outpatient vi sit 25 minutes James Pereira Work Phone: [facility] 600 DO Work Phone: Start: 08-20-[address] Ingrid Ibarra II Facility: Start: 12-27-2022 End: 12-27-2022 ambulatory LARA EDOUARD Facility: Start: 06-17-2022 Patient encounter procedure James Pereira Work Phone: [facility] 250 DO Work Phone: Start: 04-30-2022 Office outpatient vi sit 25 minutes James Pereira Work Phone: [facility] 250 DO Work Phone: Start: 04-22-2022 Patient encounter procedure Ingrid Contreras DO Work Phone: [facility] 250 DO Work Phone: Start: 04-16-2022 End: 04-18-2022 Evaluation and management of inpatient James Pereira Facility:[facility] Start: 10-12-2021 End: 10-12-2021 ambulatory Maxine Sawyer Other [facility] [employer] Other Start: 10-12-2021 Office outpatient vi sit 15 minutes Maxine Sawyer [facility] Start: 03-04-2021 End: 03-04-2021 Patient encounter procedure James Pereira -Lab [facility] Start: 07-22-2017 Ambulatory INGRID IBARRA Facil [id number] Procedures Date Procedure Procedure Detail Performing Clinician Start: 11-23-2023 MULTIPLE LABS Not In Sy stem Ref Prov Start: 11-23-1979 Total colonoscopy Willi am Ben DO Work Phone: Appendectomy James E Bristo l Work Phone: Arthroplasty of knee James Jasso Ambler Work Phone: Cardiac catheterization Will rey Ben DO Work Phone: Cholecystectomy James E Any stol Work Phone: Hysterectomy James E Bristo l Work Phone: Removal of thrombus James Jasso Ambler Work Phone: Surgical procedure o n eye proper James Jasso Ambler Work Phone: Plan of Treatment Date Care Activity Detail Author Start: 12-25-2031 DTaP,Tdap and Td Vaccines (2 - Td or Tdap) DTaP,Tdap and Td Vaccines (2 - Td or Tdap) [facility] Start: 07-24-2023 Influenza vaccination Influenza Vaccine [facility] Start: 07-10-2022 FUV, Provider: Ingrid Ibarra, Status: Pen, Time: 10:50 AM FUV, Provider: Ingrid Ibarra, Status: Pen, Time: 10:50 AM [facility] 250 DO Work Phone: Start: 04-30-2022 FUV, Provider: Cristal Grant, Status: Pen, Time: 10:30 AM FUV, Provider: Cristal Grant, Status: Pen, Time: 10:30 AM [facility] 250 DO Work Phone: Start: 01-15-2022 Adult BMI Screening Adult BMI Screening [facility] Start: 2015 Fall Risk Screening Fall Risk Screening [facility] Start: 2000 Administration of varicella zoster vaccine Zoster (Shingles) Vaccine (1 of 2) [facility] Start: 1962 Depression Screening Depression Screening [facility] Start: 1962 Tobacco Screening Tobacco Screening [facility] Start: 1950 Medicare Annual Wellness Visit Medicare Annual Wellness Visit [facility] Immunizations Immunization Date Immunization Notes Care Provider Grover cintron 12-25-2021 tetanus toxoid, redu zak diphtheria toxoid, and acellular pertussis vaccine, adsorbed James E Ambler Work Phone: [facility] 250 DO Work Phone: 09-11-2020 influenza virus vacc ine, unspecified formulation James E Ambler Work Phone: [facility] 250 DO Work Phone: 09-08-2020 Fluzone QIV High-Dos e 65YR+ [facility] 09-08-2020 influenza virus vacc ine, unspecified formulation Not Ref Prov [facility] 10-14-2019 influenza, high dose seasonal, preservative-free [facility] 07-24-2017 pneumococcal polysaccharide vaccine, 23 valent [place] E Ambler Work Phone: -[facility] 250 DO Work Phone: 08-28-2015 influenza, high dose seasonal, preservative-free James Pereira Work Phone: [facility] 250 DO Work Phone: influenza virus vacc ine, unspecified formulation [facility] Pereira [facility]: [facility] Work Phone: Comment on above: Aug 20122012 Payers Date Payer Category Payer Medicare [employer] MEDICARE UHC MEDICARE ADVANTAGE PPO [id number] 2023-Present [phone] [address] [address] [place] [address] [id number] 2023 Private Health Insurance [id number] 2022 Medicare [id number] 2022 Private Health Insurance [id number] 2022 Self-pay [id number] 1959 Private Health Insurance [id number] 1950 Unknown [id number] 1950 Unknown [id number] 1950 Unknown [id number] 1950 Unknown [id number] 1950 Unknown [id number] Private Health Insurance [id number] Unknown [employer] Unknown [id number] Social History Date Type Detail Facility Start: 07-05-2018 End: 10-02-2020 Tobacco smoking status NHIS [facility] Start: 1950 Sex Assigned At Female [facility] Start: 12-18-2020 End: 01-15-2021 No illicit drug use No illicit drug use [facility] 250 DO Work Phone: Comment on above: Quit 1993; 4 cups tea daily; Start: 12-18-2020 End: 01-15-2021 Sex Assigned At [facility] [employer] Other History of tobacco use Current smoker [facility] Start: 07-05-2018 Tobacco use and exposure Smokeless [email or web address] Start: 01-15-2021 Alcohol intake 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 Clinical Note 12-27-2022 Note Date & Type [...] by: RODERICK ESTRELLA Date: 2022-12-27 15:[address] [facility] Evaluation note 10-12-2021 Note Date & Type [...] Patient care instructions given in writting by [facility] At Home document. [facility] Other History general Narrative - Reported Note Date & Type Note Facility History general Narrative - Reported Type Medical History hypertension Medical History chronic kidney disease stage 3 Surgical History gall bladder Surgical History appendectomy Surgical History knee replacement, left Surgical History HEART CATH WITH STENT PLACEMENT X1 Hospitalization History see above Hospitalization History URINARY TRACT INFECTION 05/2020 Hospitalization History BLOOD PRESSURE ISSUES [facility] Other History of Present illness Narrative Note [...] medication regimen. She denies medication side effects. [facility] 250 DO Work Phone: History of Present [...] diet and weight loss were again advocated. [facility] Work Phone: Instructions Note Date & Type Note Facility Instructions Not on filedocumented in this en counter [facility] Summary Purpose Family History No Family [...] pain. * Patient was recently hospitalized at [facility]. The patient was seen in Cardiology consult with subsequent cardiovascular management by [facility]. Hospitalization records have been reviewed. * Reason for Cardiology Consultation: ACS * Consulting Chief Crna: Dr. Contreras * Cardiovascular testing: cardiac cath [...] section and content) DATE CREATED AUTHOR 05/19/2018 [facility] DATE CREATED AUTHOR AUTHOR'S ORGANIZ ATION 12/27/2022 [facility] DATE CREATED AUTHOR AUTHOR'S ORGANIZ ATION 12/29/2022 [facility] DATE CREATED AUTHOR AUTHOR'S ORGANIZ ATION 08/28/2023 [facility] DATE CREATED AUTHOR AUTHOR'S ORGANIZ ATION 10/07/2023 [facility] DATE CREATED AUTHOR AUTHOR'S ORGANIZ ATION 11/24/2023 [facility] DATE CREATED AUTHOR AUTHOR'S ORGANIZ ATION 12/04/2023 [facility] EPIC REASON FOR VISIT (unrecogniz ed section and content) #13 NOT VACCINATED, NO POS C OVID EXP, COUGH, CONGESTION, FEVER Care Teams (unrecognized sec tion and content) Pediatric Physician Assistant Relationship Specialty Start Date End Date James Pereira DO [address] [place] [address] PCP - General 06/30/18 FOR RECORDS PERTAINING [...] BE BASED ON THE PRIMARY CLINICAL RECORDS. [employer] provides no warranty or guarantee of the accuracy or completeness of information in this document.
[2023-12-17 11:29] LABS: Erythrocyte Sedimentation Rate 53 mm/hr (<=30)
[2023-12-17 12:45] LABS: C Reactive Protein 0.84 mg/dL (<=0.50)
[2023-12-18 14:11] LABS: Albumin 3.4 g/dL (2.9-4.4); Alpha-1-Globulin 0.3 g/dL (0.0-0.4); Alpha-2-Globulin 0.9 g/dL (0.4-1.0); Gamma Globulin 0.9 g/dL (0.4-1.8); Protein, Total 6.5 g/dL (6.0-8.5)
[2023-12-21 14:08] LABS: Albumin, U 45.9 % (.); Alpha-1-Globulin, U 5.2 % (.); Alpha-2-Globulin, U 10.7 % (.); Beta Globulin, U 22.1 % (.); Gamma Globulin, U 16.1 % (.); M-Spike, % Not Observed % (Not Observed); Protein,Total,Urine 39.3 mg/dL (Not Estab.)
== END 2023-12-17 10:41 | disposition home or self-care (01) ==
LOC: LAB 10:42
PROVIDERS: PCP Internal Medicine; Visit Provider Psychiatry & Neurology Neurology
DX: D50.0 Iron deficiency anemia secondary to blood loss (chronic) (principal); G60.3 Idiopathic progressive neuropathy; D68.9 Coagulation defect, unspecified
CPT/HCPCS: 36415; 82164; 84155; 84156; 84165; 84166; 85652; 86041; 86042; 86043; 86140

== ENCOUNTER 2023-12-22 07:24 | Outpatient (RCR) | payer MEDICARE, SELFPAY | END 2023-12-23 23:59 | disposition home or self-care (01) | LOC: INF 07:24 | PROVIDERS: PCP Internal Medicine; Visit Provider Internal Medicine Hematology & Oncology | DX: D64.9 Anemia, unspecified (principal); R93.89 Abnormal findings on diagnostic imaging of other specified body structures; M85.80 Other specified disorders of bone density and structure, unspecified site; M89.9 Disorder of bone, unspecified; Z90.710 Acquired absence of both cervix and uterus; Z90.49 Acquired absence of other specified parts of digestive tract; Z96.652 Presence of left artificial knee joint; N28.9 Disorder of kidney and ureter, unspecified; E83.52 Hypercalcemia; D72.819 Decreased white blood cell count, unspecified | CPT/HCPCS: G0463 ==

== ENCOUNTER 2023-12-31 08:29 | Outpatient (OUT) | payer MEDICARE, SELFPAY ==
--- NOTE | 2023-12-31 07:45 | NM_ITS ---
The [address] [address] Patient Name: BELLE JEONG MRN: [id number] date: 1950 Sex: F Assigned Patient Location: [place] Current Patient Location: [place] Accession/Order Number: [id number] Exam Date: 12/31/2023 07:40 Report Date: 12/31/2023 12:07 At the request of: VERENICE CONKLIN Procedure: [place] bone scan whole body EXAMINATION: [place] bone scan whole body HISTORY: BACK PAIN, ABNORMAL RADIOGRAPHY, EVALUATE FOR LESIONS COMPARISON: No relevant comparison available. TECHNIQUE: After obtaining the patient's consent, 24.9 Technetium 99m MDP was injected intravenously. Images were obtained approximately two hours later. FINDINGS: The patient was injected at 7:40 AM. The patient returned for the imaging portion of exam and terminated the procedure before imaging was obtained. LA/LA bone scan whole body IMPRESSION: Nondiagnostic exam. The patient terminated the procedure following injection of radionuclide Electronically authenticated by: JANINE LY Date: 12/31/2023 12:07
--- OUTSIDE RECORDS SUMMARY | 2023-12-31 08:35 | XMS_ITS | CCD ---
Author Name Unknown Address [address] [facility] [address] [place] [address] Organization [facility] Care Team Providers Care Wrapper Stitcher Name Role Phone INGRID IBARRA Unavailable Unavailable [...] Primary Care Provider SHAIKH BINGHAM Attending Unavailable TRENT CORTEZ Attending Unavailable SHAIKH BINGHAM Attending Unavailable ZENA ESPINOSA Attending [...] 0 Refills: 0 Ordered: 30-Apr-2022 DO Active [id number] 200 actuat albuterol 0.09 mg/actuat metered dose [...] 09-06-2020 Bacitracin Active 1 APPLIC OPHTHALMIC Q8H 7 October 02, 2020 3:31pm 168 hr cloNIDine 0.23093 mg/hr transdermal system (2 sources) Central alpha-2 [...] Lisinopril Active 40 MG PO Every morning 30 September 09, 2020 12:39pm Magnesium (4 sources) [...] P2Y12 Platelet Inhibitor Start: 10-14-20 End: 09-09-20 take 1 tablet by mouth once Clopidogrel [...] medications] Episodic Other aftercare (1 source) Other mcc (current) drug therapy; Translations: [OTH ALF CURRENT DRUG THERAPY] Onset: 12-29-2022 Episodic Other [...] Unclassified (1 source) Athscl heart disease of [place] coronary artery w/o ang pctrs / I25.10(ICD-9) [...] Multiple labsOrdered By: Maureen Eckert on 11-23-2023 [facility] Height or Weight NOT Doneon 08-20-2023 Adult depression screening assessment No [facility] [employer] 600 DO Work Phone: Fall risk assessment a) No falls within the last year [facility] [employer] 600 DO Work Phone: Office Visit (Cardiology)on 08-20-2023 Follow-up visit Diagnoses/Problems Assessed Mixed hyperlipidemia (272.2) (E78.2) Essential hypertension (401.9) (I10) Atherosclerosis of [place] coronary artery without angina pectoris (414.01) (I25.10) Status post angioplasty (V45.89) (Z98.62) Shortness of breath (786.05) (R06.02) Former smoker (V15.82) (Z87.891) Quit 1993 Orders Atherosclerosis of [place] coronary artery without angina pectoris, Status post [...] Former smoker Tobacco Use Screening; Status:Complete; Done: [id number] Unlinked Stop: amLODIPine Besylate 10 MG Oral [...] negative for complaint. Vitals Vital Signs Recorded: [id number] 11:08AM Heart Rate70, L Radial Xqraapih410, LUE, Sitting Mvmjizizc06, LUE, Sitting Height5 ft 3 in Height [...] by: CHARLEY LUCAS Date: 2022-12-27 15:51 Normal [facility] XR RIBS LT PA Waqar 3 XR [...] calcified granuloma in the right lung base. Robert screws noted in the right humeral head. IMPRESSION: 1. No acute rib fracture identified. 2. No acute cardiopulmonary process. Electronically authenticated by: MARLON METCALF Date: 2022-12-27 15:50 Normal [facility] Tobacco Screening.on 022 Adult depression screening assessment No [facility] 250 DO Work Phone: Fall risk assessment a) No falls within the last year [facility] 250 DO Work Phone: Tobacco use status CPHS b) No [facility] 250 DO Work Phone: Basic Metabolic Panelon 03-24 Calcium [Mass/Vol] 8.9 mg/dL Normal 8.2-10.2 [facility] Comment on above: Performed By: #### C BC, BMP #### [facility] [address] [place] [address] [place] Chloride [Moles/Vol] 106 mmol/L Normal 95-114 [facility] Comment on above: Performed By: #### C BC, BMP #### [facility] [address] [place] [address] [place] CO2 [Moles/Vol] 22.3 mmol/L Normal 22.0-30.0 [facility] Comment on above: Performed By: #### C BC, BMP #### [facility] [address] [place] [address] [place] Creatinine [Mass/Vol] 1.42 mg/dL High 0.44-1.03 [facility] Comment on above: Performed By: #### C BC, BMP #### [facility] [address] [place] [address] [place] Creatinine Clr Calc Pharmacy 38.78 [facility] Comment on above: Result Comment: PERF ORMED BY: [place] [address] PATHOLOGIST MANAGER [employer] CUCA VOGT M.D. Performed By: #### C BC, BMP #### [address] Estimated GFR ( Jasmin 44 [facility] Comment on above: Result Comment: GFR estimated reference range: According to KDOQI guidelines, <60 ml/min/1.73m2 is sufficient to diagnose a patient with chronic kidney disease. Performed By: #### C BC, BMP #### [facility] [address] [place] [address] [place] Estimated GFR (Non- Am 36 [facility] Comment on above: Performed By: #### C BC, BMP #### [address] Glucose [Mass/Vol] 107 mg/dL High 70-100 [facility] Comment on above: Result Comment: Omro Glucose Reference Range is dependent on time and content of last meal. Glucose of more than 200 mg/dL in a nonstressed, ambulatory subject supports the diagnosis of Diabetes Mellitus. ADA recommended reference range Performed By: #### C BC, BMP #### [facility] [address] Potassium [Moles/Vol] 4.2 mmol/L Normal 3.5-5.1 [facility] Comment on above: Performed By: #### C BC, BMP #### [facility] [address] [place] [address] [place] Sodium [Moles/Vol] 139 mmol/L Normal 136-146 [facility] Comment on above: Performed By: #### C BC, BMP #### [address] Urea nitrogen [Mass/Vol] 16 mg/dL Normal 9-23 [facility] Comment on above: Performed By: #### C BC, BMP #### [address] Complete Blood Count Auto Di ffon 04-18-2022 Basophils (Bld) [#/Vol] 0.1 10*3/uL Normal 0.0-0.2 [facility] Comment on above: Result Comment: PERF ORMED BY: [place] [address] PATHOLOGIST MANAGER [employer] CUCA VOGT M.D. Performed By: #### C BC, BMP #### [address] Basophils/100 WBC (Bld) 1.2 % Normal . [facility] Comment on above: Performed By: #### C BC, BMP #### [address] Eosinophils (Bld) [#/Vol] 0.2 10*3/uL Normal 0.0-0.45 [facility] Comment on above: Performed By: #### C BC, BMP #### [address] Eosinophils/100 WBC (Bld) 1.8 % Normal . [facility] Comment on above: Performed By: #### C BC, BMP #### [address] Erythrocyte distribution width (RBC) [Ratio] 17.9 % High 11.9-15.3 [facility] Comment on above: Performed By: #### C BC, BMP #### [address] Hematocrit (Bld) [Volume fraction] 30.9 % Low 34.0-46.4 [facility] Comment on above: Performed By: #### C BC, BMP #### [facility] [address] [place] [address] [place] Hemoglobin (Bld) [Mass/Vol] 9.9 g/dL Low 11.8-15.4 [facility] Comment on above: Performed By: #### C BC, BMP #### [facility] [address] Lymphocytes (Bld) [#/Vol] 1.0 10*3/uL Normal 1.00-4.8 [facility] Comment on above: Performed By: #### C BC, BMP #### [facility] [address] Lymphocytes/100 WBC (Bld) 11.3 % Normal . [facility] Comment on above: Performed By: #### C BC, BMP #### [facility] [address] MCH (RBC) [Entitic mass] 25.7 pg Normal 24.7-34.3 [facility] Comment on above: Performed By: #### C BC, BMP #### [facility] [address] [place] [address] [place] MCV (RBC) [Entitic vol] 80.1 fL Normal 80-100 [facility] Comment on above: Performed By: #### C BC, BMP #### [facility] [address] Mean Corpuscular HGB Conc 32.0 g/dL Normal 32.0-35.0 [facility] Comment on above: Performed By: #### C BC, BMP #### [facility] [address] [place] [address] [place] Monocytes (Bld) [#/Vol] 0.5 10*3/uL Normal 0.0-0.8 [facility] Comment on above: Performed By: #### C BC, BMP #### [facility] [address] [place] [address] [place] Monocytes/100 WBC (Bld) 5.3 % Normal . [facility] Comment on above: Performed By: #### C BC, BMP #### [facility] [address] [place] [address] [place] Neutrophils (Bld) [#/Vol] 7.0 10*3/uL Normal 1.8-7.7 [facility] Comment on above: Performed By: #### C BC, BMP #### [facility] [address] [place] [id number] [place] Neutrophils/100 WBC (Bld) 80.4 % Normal . [facility] Comment on above: Performed By: #### C BC, BMP #### [facility] [address] [place] [address] [place] Nucleated RBC/100 WBC (Bld) [Ratio] 0.1 % Normal 0-0.5 [facility] Comment on above: Performed By: #### C BC, BMP #### [facility] [address] [place] [address] [place] Platelet mean volume (Bld) [Entitic vol] 8.1 fL Normal 6.3-10.7 [facility] Comment on above: Performed By: #### C BC, BMP #### [facility] [address] [place] [address] [place] Platelets (Bld) [#/Vol] 236 10*3/uL Normal 150-450 [facility] Comment on above: Performed By: #### C BC, BMP #### [facility] [address] [place] [address] [place] RBC (Bld) [#/Vol] 3.86 10*6/uL Normal 3.60-5.00 [facility] Comment on above: Performed By: #### C BC, BMP #### [facility] [address] [place] [id number] [place] WBC (Bld) [#/Vol] 8.7 10*3/uL Normal 4.5-11.0 [facility] Comment on above: Performed By: #### C BC, BMP #### [facility] [address] [place] [id number] [place] ECG 12 lead ECGon 04-18-2022 ECG 12 lead ECG [facility] [place] [address] [place] [address] Electrocardiograph Report Signed Patient: Kusum Huerta MR#: [id number] 01 : 1950 Acct:[id number] Age/Sex: 72 / F ADM Date: 04/16/22 Loc: Room: [address] [place] [address] Type: DIS IN Attending Dr: Nisha Crane [...] Tammy Suarez MD 0 04/18/22 1519 Normal [facility] Troponin I High Sensitivityo n 04-18-2022 Troponin I High Sensitivity 5969 pg/mL Off scale high 0-15 [facility] Comment on above: Result Comment: Resu lts called at 0615 on 04/18/22 PERFORMED BY: [place] [address] PATHOLOGIST MANAGER [employer] CUCA VOGT M.D. Performed By: #### H S TROP #### [facility] [address] [place] [address] [place] Basic Metabolic Panelon 03-24 Calcium [Mass/Vol] 8.4 mg/dL Normal 8.2-10.2 [facility] Comment on above: Performed By: #### C OVID 19 [facility], COVID-19 ARLENE, SOFIANEG #### [facility] [address] [place] [address] [place] Chloride [Moles/Vol] 107 mmol/L Normal 95-114 [facility] Comment on above: Performed By: #### C OVID 19 [facility], COVID-19 [place], SOFIANEG #### [facility] [address] CO2 [Moles/Vol] 24.3 mmol/L Normal 22.0-30.0 [facility] Comment on above: Performed By: #### C OVID 19 [facility], COVID-19 [place], SOFIANEG #### [facility] [address] Creatinine [Mass/Vol] 1.61 mg/dL High 0.44-1.03 [facility] Comment on above: Performed By: #### C BRISTOL 19 [facility], COVID-19 A[place], SOFIANEG #### [facility] [address] Creatinine Clr Calc Pharmacy 34.21 [facility] Comment on above: Result Comment: PERF ORMED BY: [place] [address] PATHOLOGIST MANAGER [employer] CUCA VOGT M.D. Performed By: #### C BRISTOL 19 [facility], COVID-19 [place], SOFIANEG #### [address] Estimated GFR ( Jasmin 38 [facility] Comment on above: Result Comment: GFR estimated reference range: According to KDOQI guidelines, <60 ml/min/1.73m2 is sufficient to diagnose a patient with chronic kidney disease. Performed By: #### C OVID 19 [facility], COVID-19 [place], SOFIANEG #### [facility] [address] [place] [address] [place] Estimated GFR (Non- Am 31 [facility] Comment on above: Performed By: #### C OVID 19 [facility], COVID-19 ARL[place], SOFIANEG #### [facility] [address] [place] [address] [place] Glucose [Mass/Vol] 126 mg/dL High 70-100 [facility] Comment on above: Result Comment: Omro Glucose Reference Range is dependent on time and content of last meal. Glucose of more than 200 mg/dL in a nonstressed, ambulatory subject supports the diagnosis of Diabetes Mellitus. ADA recommended reference range Performed By: #### C OVID 19 [facility], COVID-19 [place], SOFIANEG #### [facility] [address] Potassium [Moles/Vol] 4.4 mmol/L Normal 3.5-5.1 [facility] Comment on above: Performed By: #### C OVID 19 [facility], COVID-19 ARLENE, SOFIANEG #### [facility] [address] Sodium [Moles/Vol] 140 mmol/L Normal 136-146 [facility] Comment on above: Performed By: #### C OVID 19 [facility], COVID-19 ARLENE, SOFIANEG #### [facility] [address] Urea nitrogen [Mass/Vol] 19 mg/dL Normal 9-23 [facility] Comment on above: Performed By: #### C OVID 19 [facility], COVID-19 ARLENE, SOFIANEG #### [facility] [address] Complete Blood Count Auto Di ffon 04-17-2022 Basophils (Bld) [#/Vol] 0.1 10*3/uL Normal 0.0-0.2 [facility] Comment on above: Result Comment: PERF ORMED BY: [place] [address] PATHOLOGIST MANAGER [employer] CUCA VOGT M.D. Performed By: #### C OVID 19 [facility], COVID-19 ARL[place], SOFIANEG #### [address] Basophils/100 WBC (Bld) 0.6 % Normal . [facility] Comment on above: Performed By: #### C OVID 19 [facility], COVID-19 ARLENE, SOFIANEG #### [facility] [address] [place] [address] [place] Eosinophils (Bld) [#/Vol] 0.2 10*3/uL Normal 0.0-0.45 [facility] Comment on above: Performed By: #### C BRISTOL 19 [facility], COVID-19 ARL[place], SOFIANEG #### [facility] [address] Eosinophils/100 WBC (Bld) 2.5 % Normal . [facility] Comment on above: Performed By: #### C BRISTOL 19 [facility], COVID-19 ARLENE, SOFIANEG #### [facility] [address] Erythrocyte distribution width (RBC) [Ratio] 17.6 % High 11.9-15.3 [facility] Comment on above: Performed By: #### C BRISTOL 19 [facility], COVID-19 ARLENE, SOFIANEG #### [address] Hematocrit (Bld) [Volume fraction] 28.4 % Low 34.0-46.4 [facility] Comment on above: Performed By: #### C BRISTOL 19 [facility], COVID-19 ARLENE, SOFIANEG #### [address] Hemoglobin (Bld) [Mass/Vol] 9.2 g/dL Low 11.8-15.4 [facility] Comment on above: Performed By: #### C BRISTOL 19 [facility], COVID-19 ARLENE, SOFIANEG #### [address] Lymphocytes (Bld) [#/Vol] 1.3 10*3/uL Normal 1.00-4.8 [facility] Comment on above: Performed By: #### C BRISTOL 19 [facility], COVID-19 ARLENE, SOFIANEG #### [address] Lymphocytes/100 WBC (Bld) 16.9 % Normal . [facility] Comment on above: Performed By: #### C BRISTOL 19 [facility], COVID-19 ARLENE, SOFIANEG #### [facility] [address] MCH (RBC) [Entitic mass] 25.9 pg Normal 24.7-34.3 [facility] Comment on above: Performed By: #### C OVID 19 [facility], COVID-19 ARLENE, SOFIANEG #### [facility] [address] MCV (RBC) [Entitic vol] 80.3 fL Normal 80-100 [facility] Comment on above: Performed By: #### C BRISTOL 19 [facility], COVID-19 ARL[place], SOFIANEG #### [facility] [address] Mean Corpuscular HGB Conc 32.3 g/dL Normal 32.0-35.0 [facility] Comment on above: Performed By: #### C BRISTOL 19 [facility] [place], SOFIANEG #### [facility] [address] Monocytes (Bld) [#/Vol] 0.5 10*3/uL Normal 0.0-0.8 [facility] Comment on above: Performed By: #### C BRISTOL 19 [facility] [place], SOFIANEG #### [facility] [address] Monocytes/100 WBC (Bld) 5.8 % Normal . [facility] Comment on above: Performed By: #### C BRISTOL 19 [facility], COVID-19 A[place], SOFIANEG #### [facility] [address] Neutrophils (Bld) [#/Vol] 5.9 10*3/uL Normal 1.8-7.7 [facility] Comment on above: Performed By: #### C BRISTOL 19 [facility] [place], SOFIANEG #### [facility] [address] [place] [address] [place] Neutrophils/100 WBC (Bld) 74.2 % Normal . [facility] Comment on above: Performed By: #### C BRISTOL 19 [facility], COVID-19 A[place], SOFIANEG #### [facility] [address] Nucleated RBC/100 WBC (Bld) [Ratio] 0.0 % Normal 0-0.5 [facility] Comment on above: Performed By: #### C BRISTOL 19 [facility], COVID-19 [place], SOFIANEG #### [facility] [address] Platelet mean volume (Bld) [Entitic vol] 8.0 fL Normal 6.3-10.7 [facility] Comment on above: Performed By: #### C BRISTOL 19 [facility] [place], SOFIANEG #### [facility] [address] [place] [address] [place] Platelets (Bld) [#/Vol] 227 10*3/uL Normal 150-450 [facility] Comment on above: Performed By: #### C BRISTOL 19 [facility], COVID-19 ARLENE, SOFIANEG #### [facility] [address] RBC (Bld) [#/Vol] 3.54 10*6/uL Low 3.60-5.00 [facility] Comment on above: Performed By: #### C BRISTOL 19 [facility], COVID-19 ARLENE, SOFIANEG #### [address] WBC (Bld) [#/Vol] 7.9 10*3/uL Normal 4.5-11.0 [facility] Comment on above: Performed By: #### C BRISTOL 19 [facility], COVID-19 [place], SOFIANEG #### [address] ECG 12 lead ECGon 04-17-2022 ECG 12 lead ECG [facility] [place] [address] [place] [address] Electrocardiograph Report Signed Patient: Kusum Huerta MR#: [id number] 01 : 1950 Acct:[id number] Age/Sex: 72 / F ADM Date: 04/16/22 Loc: Room: [address] [place] [address] Type: DIS IN Attending Dr: Nisha Crane [...] was found Confirmed by TAMMY SUAREZ MD (Critical [facility] hospital) on 04/18/2022 3:19:42 PM Referred By: Electronically Signed By:TAMMY SUAREZ MD Transcribed By: MUS Signed By Tammy Suarez MD 0 04/18/22 1519 Normal [facility] Partial Thromboplastin Timeo n 04-17-2022 aPTT Coag (Bld) [Time] 62.4 s High 25.1-36.5 [facility] Comment on above: Result Comment: PERF ORMED BY: [place] [address] PATHOLOGIST MANAGER [employer] CUCA VOGT M.D. Performed By: #### C OVID 19 [facility], COVID- ARLENE, SOFIANEG #### [address] aPTT Coag (Bld) [Time] 49.4 s High 25.1-36.5 [facility] Comment on above: Result Comment: PERF ORMED BY: [place] [address] PATHOLOGIST MANAGER [employer] CUCA VOGT M.D. Performed By: #### C OVID 19 [facility], COVID-19 ARL[place], SOFIANEG #### [facility] [address] [place], [place] [address] [facility] A1C with Estimated Average G luon 04-16-2022 Glucose [Mass/Vol] 117 mg/dL Normal [facility] Comment on above: Result Comment: PERF ORMED BY: [place] [address] PATHOLOGIST MANAGER [employer] CUCA VOGT M.D. Performed By: #### C OVID 19 [facility] [place], COVID-19 [place], SOFIANEG #### [address] HbA1c (Bld) [Mass fraction] 5.7 % High 4.3-5.6 [facility] Comment on above: Result Comment: Incr eased risk for diabetes: 5.7 - 6.4 diabetes: >6.4 glycemic control for adults with diabetes: <7.0 Performed By: #### C OVID 19 [facility], COVID-19 [place], SOFIANEG #### [address] B-Type Natriuretic Peptideon 04-16-2022 Natriuretic peptide B (Bld) [Mass/Vol] 204.0 pg/mL High 5-100 [facility] Comment on above: Result Comment: PERF ORMED BY: [place] [address] PATHOLOGIST MANAGER [employer] CUCA VOGT M.D. Performed By: #### C OVID 19 [facility], COVID-19 [place], SOFIANEG #### [address] Basic Metabolic Panelon -2 Calcium [Mass/Vol] 8.2 mg/dL Normal 8.2-10.2 [facility] Comment on above: Performed By: #### C OVID 19 [facility], COVID-19 ARLENE, SOFIANEG #### [facility] [address] [place] [id number] [facility] Chloride [Moles/Vol] 106 mmol/L Normal 95-114 [facility] Comment on above: Performed By: #### C OVID 19 [facility], COVID-19 ARLENE, SOFIANEG #### [address] [place] [address] [place] CO2 [Moles/Vol] 19.3 mmol/L Low 22.0-30.0 [facility] Comment on above: Performed By: #### C OVID 19 [facility], COVID-19 ARLENE, SOFIANEG #### [facility] [address] [place] [id number] [facility] Creatinine [Mass/Vol] 1.52 mg/dL High 0.44-1.03 [facility] Comment on above: Performed By: #### C OVID 19 [facility], COVID-19 ARLENE, SOFIANEG #### [facility] [address] Creatinine Clr Calc Pharmacy 36.27 [facility] Comment on above: Result Comment: PERF ORMED BY: [place] [address] PATHOLOGIST MANAGER [employer] CUCA VOGT M.D. Performed By: #### C BRISTOL 19 [facility], COVID-19 ARL[place], SOFIANEG #### [facility] [address] Estimated GFR ( Jasmin 41 [facility] Comment on above: Result Comment: GFR estimated reference range: According to KDOQI guidelines, <60 ml/min/1.73m2 is sufficient to diagnose a patient with chronic kidney disease. Performed By: #### C OVID 19 [facility], COVID-19 ARL[place], SOFIANEG #### [facility] [address] [place] [address] [place] Estimated GFR (Non- Am 34 [facility] Comment on above: Performed By: #### C OVID 19 [facility], COVID-19 ARLENE, SOFIANEG #### [facility] [address] Glucose [Mass/Vol] 135 mg/dL High 70-100 [facility] Comment on above: Result Comment: Omro Glucose Reference Range is dependent on time and content of last meal. Glucose of more than 200 mg/dL in a nonstressed, ambulatory subject supports the diagnosis of Diabetes Mellitus. ADA recommended reference range Performed By: #### C OVID 19 [facility], COVID-19 ARL[place], SOFIANEG #### [facility] [address] Potassium [Moles/Vol] 4.4 mmol/L Normal 3.5-5.1 [facility] Comment on above: Performed By: #### C OVID 19 [facility], COVID-19 ARL[place], SOFIANEG #### [facility] [facility] [address] Sodium [Moles/Vol] 135 mmol/L Low 136-146 [facility] Comment on above: Performed By: #### C OVID 19 [facility] COVID-19 ARLENE, SOFIANEG #### [facility] [address] Urea nitrogen [Mass/Vol] 27 mg/dL High 9-23 [facility] Comment on above: Performed By: #### C OVID 19 [facility] [place], COVID-19 ARLENE, SOFIANEG #### [facility] [address] Calcium [Mass/Vol] 8.3 mg/dL Normal 8.2-10.2 [facility] Comment on above: Performed By: #### B MP #### [facility] [address] [place] [address] Chloride [Moles/Vol] 108 mmol/L Normal 95-114 [facility] Comment on above: Performed By: #### B MP #### [facility] [address] [place] [address] CO2 [Moles/Vol] 18.3 mmol/L Low 22.0-30.0 [facility] Comment on above: Performed By: #### B MP #### [facility] [address] Creatinine [Mass/Vol] 1.86 mg/dL High 0.44-1.03 [facility] Comment on above: Performed By: #### B MP #### [facility] [address] [place] [address] [place] Creatinine Clr Calc Pharmacy 29.64 Normal [facility] Comment on above: Result Comment: PERF ORMED BY: [place] [address] PATHOLOGIST MANAGER HUMAN RESOURCES CUCA VOGT M.D. Performed By: #### B MP #### [address] Estimated GFR ( Jasmin 32 [facility] Comment on above: Result Comment: GFR estimated reference range: According to KDOQI guidelines, <60 ml/min/1.73m2 is sufficient to diagnose a patient with chronic kidney disease. Performed By: #### B MP #### [address] Estimated GFR (Non- Am 27 [facility] Comment on above: Performed By: #### B MP #### [address] Glucose [Mass/Vol] 131 mg/dL High 70-100 [facility] Comment on above: Result Comment: Omro om Glucose Reference Range is dependent on time and content of last meal. Glucose of more than 200 mg/dL in a nonstressed, ambulatory subject supports the diagnosis of Diabetes Mellitus. ADA recommended reference range Performed By: #### B MP #### [address] Potassium [Moles/Vol] 4.9 mmol/L Normal 3.5-5.1 [facility] Comment on above: Performed By: #### B MP #### [address] Sodium [Moles/Vol] 135 mmol/L Low 136-146 [facility] Comment on above: Performed By: #### B MP #### [address] Urea nitrogen [Mass/Vol] 31 mg/dL High 9-23 [facility] Comment on above: Performed By: #### B MP #### [address] COVID-19 Antigenon 2 COVID-19 [facility] [...] developed and its performance characteristic determined by [employer] and validated at [facility]. This test has not been FDA [...] for SARS Antigen by [employer] PERFORMED BY: [place] [address] PATHOLOGIST MANAGER HUMAN RESOURCES CCUA VOGT M.D. 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 This test has not been FDA [...] is terminated or revoked sooner. PERFORMED BY: [place] [address] PATHOLOGIST MANAGER HUMAN [employer]OURCES CUCA VOGT M.D. Performed By: #### C OVID 19 [facility] [place], COVID-19 ARLENE, SOFIANEG #### [address] Comprehensive Metabolic Pane guerita 04-16-2022 Albumin [Mass/Vol] 4.0 g/dL Normal 3.2-5.5 [facility] Comment on above: Performed By: #### C OVID 19 [facility] [place], COVID-19 ARLENE, SOFIANEG #### [facility] [address] [place] [address] Albumin/Globulin [Mass ratio] 1.3 {ratio} Normal [facility] Comment on above: Performed By: #### C OVID 19 [facility] [place], COVID-19 ARLENE, SOFIANEG #### [facility] [address] [place] [address] ALP [Catalytic activity/Vol] 157 U/L High 32-92 [facility] Comment on above: Performed By: #### C OVID 19 [facility] [place], COVID-19 ARLENE, SOFIANEG #### [facility] [address] [place] [id number] [place] ALT [Catalytic activity/Vol] 14 U/L Normal 10-60 [facility] Comment on above: Performed By: #### C OVID 19 [facility] [place], COVID-19 ARLENE, SOFIANEG #### [facility] [address] [place] [id number] [place] AST [Catalytic activity/Vol] 19 U/L Normal 10-42 [facility] Comment on above: Performed By: #### C OVID 19 [facility] [place], COVID-19 ARLENE, SOFIANEG #### [facility] [address] Bilirubin [Mass/Vol] 0.7 mg/dL Normal 0.3-1.2 [facility] Comment on above: Performed By: #### C OVID 19 [facility], COVID-19 ARLENE, SOFIANEG #### [facility] [address] Calcium [Mass/Vol] 9.2 mg/dL Normal 8.2-10.2 [facility] Comment on above: Performed By: #### C OVID 19 [facility], COVID-19 ARLENE, SOFIANEG #### [facility] [address] Chloride [Moles/Vol] 105 mmol/L Normal 95-114 [facility] Comment on above: Performed By: #### C OVID 19 [facility], COVID-19 ARLENE, SOFIANEG #### [facility] [address] [place] [address] [place] CO2 [Moles/Vol] 16.2 mmol/L Low 22.0-30.0 [facility] Comment on above: Performed By: #### C OVID 19 [facility], COVID-19 ARLENE, SOFIANEG #### [facility] [address] Creatinine [Mass/Vol] 2.24 mg/dL High 0.44-1.03 [facility] Comment on above: Performed By: #### C OVID 19 [facility], COVID-19 ARLENE, SOFIANEG #### [facility] [address] [place] [address] [place] Creatinine Clr Calc Pharmacy 24.73 [facility] Comment on above: Result Comment: PERF ORMED BY: [place] [address] PATHOLOGIST MANAGER [employer] CUCA VOGT M.D. Performed By: #### C BRISTOL 19 [facility], COVID-19 ARLENE, SOFIANEG #### [facility] [address] Estimated GFR ( Jasmin 26 [facility] Comment on above: Result Comment: GFR estimated reference range: According to KDOQI guidelines, <60 ml/min/1.73m2 is sufficient to diagnose a patient with chronic kidney disease. Performed By: #### C BRISTOL 19 [facility], COVID-19 ARLENE, SOFIANEG #### [address] Estimated GFR (Non- Am 21 [facility] Comment on above: Performed By: #### C BRISTOL 19 [facility] [place], COVID-19 ARLENE, SOFIANEG #### [facility] [address] Globulin (S) [Mass/Vol] 3.2 g/dL [facility] Comment on above: Performed By: #### C BRISTOL 19 [facility], COVID-19 ARLENE, SOFIANEG #### [facility] [address] [place] [address] Glucose [Mass/Vol] 141 mg/dL High 70-100 [facility] Comment on above: Result Comment: Omro Glucose Reference Range is dependent on time and content of last meal. Glucose of more than 200 mg/dL in a nonstressed, ambulatory subject supports the diagnosis of Diabetes Mellitus. ADA recommended reference range Performed By: #### C BRISTOL 19 [facility], COVID-19 ARLENE, SOFIANEG #### [facility] [address] Potassium [Moles/Vol] 5.5 mmol/L High 3.5-5.1 [facility] Comment on above: Performed By: #### C OVID 19 [facility], COVID-19 ARLENE, SOFIANEG #### [facility] [address] [place] [id number] [facility] Protein [Mass/Vol] 7.2 g/dL Normal 6.1-7.9 [facility] Comment on above: Performed By: #### C OVID 19 [facility], COVID-19 ARLENE, SOFIANEG #### [facility] [address] Sodium [Moles/Vol] 134 mmol/L Low 136-146 [facility] Comment on above: Performed By: #### C OVID 19 [facility], COVID-19 ARLENE, SOFIANEG #### [facility] [address] Urea nitrogen [Mass/Vol] 34 mg/dL High 9-23 [facility] Comment on above: Performed By: #### C OVID 19 [facility] [place], COVID-19 ARLENE, SOFIANEG #### [facility] [address] [place] [id number] [place] Creatine Kinaseon 04-16-2022 CK [Catalytic activity/Vol] 64 U/L Normal 22-269 [facility] Comment on above: Performed By: #### H S TROP #### [place] [address] [place] Creatinine Kinase MBon 04-16 CK.MB [Mass/Vol] 2.0 ng/mL Normal 0.6-6.3 [facility] Comment on above: Performed By: #### H S TROP #### [facility] [address] [place] [phone] [place] CKMB Relative Index 3.1 % High 0.00-2.50 [facility] Comment on above: Performed By: #### H S TROP #### [facility] [address] [place] [phone] [place] ECG 12 lead ECGon 04-16-2022 ECG 12 lead ECG [facility] Main [place] [address] [place] [address] Electrocardiograph Report Signed Patient: Kusum Huerta MR#: [id number] [birth year] : 1950 Acct:[id number] Age/Sex: 72 / F ADM Date: 04/16/22 Loc: Room: [address] [place] [address] Type: DIS IN Attending Dr: Nisha Crane [...] Signed By Roderick Porter DO 04/26 Normal [facility] ECG 12 lead ECG [facility] [place] [address] Electrocardiograph Report Signed Patient: Kusum Huerta MR#: [id number] 01 : 1950 Acct:[id number] Age/Sex: 72 / F ADM Date: 04/16/22 Loc: Room: [address] [place] [address] Type: DIS IN Attending Dr: Nisha Crane [...] in v4-v6 Confirmed by MAXINE SHORT MD ([id number]) on 04/16/2022 4:40:09 AM Referred By: Electronically Signed By:MAXINE SHORT MD Transcribed By: MUS Signed By Maxine Short Jr, MD 0440 [facility] ECG 12 lead ECG [facility] Main [place] [id number] Electrocardiograph Report Signed Patient: Kusum Huerta MR#: [id number] 01 : 1950 Acct:[id number] Age/Sex: 72 / F ADM Date: 04/16/22 Loc: 4C Room: [address] [place] [address] Type: DIS IN Attending Dr: Nisha Crane [...] Lateral leads Confirmed by MAXINE SHORT MD ([id number]) on 04/16/2022 4:38:02 AM Referred By: Electronically Signed By:MAXINE SHORT MD Transcribed By: MUS Signed By Maxine Short Jr, MD 0438 [facility] ECH echo transthoracicon ECH echo transthoracic [facility] Main [address] [address] Echocardiogram Signed Patient: Kusum Huerta MR#: [id number] 01 : 1950 Acct:[id number] Age/Sex: 72 / F ADM Date: 04/16/22 Loc: 4C Room: [address] [place] [address] Type: DIS IN Attending Dr: Nisha Crane MD Ordering Provider: Shivani Etienne APRN Date of Service: 04/16/22 [facility] echo transthoracic: Chest Pain Copies to: LORRIE Rizzo MD Height: 63 in Weight: 205 lb Performed By: Ivonne Weeks RDCS BSA: 2.0 m2 BP: 102/50 mmHg HR: 69 Reason For Study: Chest Pain History: COVID, [place], HTN, Hyperlipidemia, Cancer, PCI, Family history: CAD, [...] By: Tammy Suarez MD 04/16/22 0950 Normal [facility] Lipid Panelon 04-16-2022 Cholesterol [Mass/Vol] 90 mg/dL Low 140-200 [facility] Comment on above: Result Comment: Chol less than 200 mg/dl low risk Chol 201-239 mg/dl borderline risk Chol 240 mg/dl and greater high risk Performed By: #### C OVID 19 [facility] [place], COVID-19 LIZZY JACOBS #### [address] Cholesterol in HDL [Mass/Vol] 26 mg/dL Low 35-85 [facility] Comment on above: Result Comment: HDL CHOL ATP-III CLASSIFICATION Cardiovascular Risk HDL > or equal to 60 mg/dL LOW HDL < 40 mg/dL HIGH Performed By: #### C OVID 19 [facility] [place], COVID-19 ARLENE, SOFIANEG #### [facility] [address] Cholesterol.total/Cho lesterol in HDL [Mass ratio] 3.5 {ratio} Normal <5.0 [facility] Comment on above: Result Comment: PERF ORMED BY: [facility] 1[address] [place] [address] PATHOLOGIST MANAGER HUM[employer] CUCA VOGT M.D. Performed By: #### C OVID 19 [facility] [place], COVID-19 ARLENE, SOFIANEG #### [facility] [address] LDL Cholesterol,Calculate d 48 mg/dL Normal 0-100 [facility] Comment on above: Result Comment: LDL ATP III CLASSIFICATION LDL less than 100 mg/dL Optimal LDL 100-129 mg/dL Near or above optimal LDL 130-159 mg/dL Borderline high LDL 160-189 mg/dL High LDL greater than 189 mg/dL Very high Performed By: #### C OVID 19 [facility], COVID-19 ARLENE, SOFIANEG #### [facility] [address] Triglyceride w/Reflex 81 mg/dL Normal 35-149 [facility] Comment on above: Result Comment: TRIG ATP III CLASSIFICATION TRIG less than 150 mg/dL Normal TRIG 150-199 mg/dL Borderline high TRIG 200-500 mg/dL High TRIG greater than 500 mg/dL Very high Standard traceable to the Center for Disease Conrtrol and Prevention (CDC) test method. Performed By: #### C OVID 19 [facility], COVID-19 ARLENE, SOFIANEG #### [facility] [address] VLDL CHOLESTEROL 16 mg/dL Normal [facility] Comment on above: Performed By: #### C OVID 19 [facility] [place], COVID-19 ARLENE, SOFIANEG #### [facility] [address] [place] [phone] [place] Partial Thromboplastin Timeo n 04-16-2022 aPTT Coag (Bld) [Time] 89.2 s High 25.1-36.5 [facility] Comment on above: Result Comment: PERF ORMED BY: [place] [address] PATHOLOGIST MANAGER [employer]UM[employer] CUCA VOGT M.D. Performed By: #### P TT #### [facility] [address] [place] [address] [place] aPTT Coag (Bld) [Time] 38.0 s High 25.1-36.5 [facility] Comment on above: Order Comment: List the anticoagulant: HEPARIN, UNFRACTIONATED Result Comment: PERF ORMED BY: [place] [address] PATHOLOGIST MANAGER [employer]UM[employer] CUCA VOGT M.D. Performed By: #### C OVID 19 [facility] [place], COVID-19 ARLENE, SOFIANEG #### [address] [address] [place] aPTT Coag (Bld) [Time] 31.6 s Normal 25.1-36.5 [facility] Comment on above: Result Comment: PERF ORMED BY: [place] [address] PATHOLOGIST MANAGER [employer] CUCA VOGT M.D. Performed By: #### H S TROP #### [facility] [address] [place], [place] [address] [place] Prothrombin Time INRon 04-16 INR Coag (PPP) [Relative time] 1.0 {INR} Normal [facility] Comment on above: Result Comment: INR [...] Performed By: #### H S TROP #### [address] [address] [place] PT Coag (PPP) [Time] 11.3 s Normal 9.0-12.9 [facility] Comment on above: Performed By: #### H S TROP #### [address] Scan and CBCon 04-16-2022 Basophils (Bld) [#/Vol] 0.1 10*3/uL Normal 0.0-0.2 [facility] Comment on above: Performed By: #### H S TROP #### [address] Basophils/100 WBC (Bld) 1.4 % Normal . [facility] Comment on above: Performed By: #### H S TROP #### [address] Eosinophils (Bld) [#/Vol] 0.2 10*3/uL Normal 0.0-0.45 [facility] Comment on above: Performed By: #### H S TROP #### [address] Eosinophils/100 WBC (Bld) 1.5 % Normal . [facility] Comment on above: Performed By: #### H S TROP #### [address] Erythrocyte distribution width (RBC) [Ratio] 17.9 % High 11.9-15.3 [facility] Comment on above: Performed By: #### H S TROP #### [address] Hematocrit (Bld) [Volume fraction] 36.9 % Normal 34.0-46.4 [facility] Comment on above: Performed By: #### H S TROP #### [address] Hemoglobin (Bld) [Mass/Vol] 11.7 g/dL Low 11.8-15.4 [facility] Comment on above: Performed By: #### H S TROP #### [address] Lymphocytes (Bld) [#/Vol] 2.0 10*3/uL Normal 1.00-4.8 [facility] Comment on above: Performed By: #### H S TROP #### [facility] [address] [place] [address] [place] Lymphocytes/100 WBC (Bld) 19.2 % Normal . [facility] Comment on above: Performed By: #### H S TROP #### [facility] [address] MCH (RBC) [Entitic mass] 25.7 pg Normal 24.7-34.3 [facility] Comment on above: Performed By: #### H S TROP #### [address] MCV (RBC) [Entitic vol] 80.9 fL Normal 80-100 [facility] Comment on above: Performed By: #### H S TROP #### [address] Mean Corpuscular HGB Conc 31.8 g/dL Low 32.0-35.0 [facility] Comment on above: Performed By: #### H S TROP #### [place] [address] [place] Monocytes (Bld) [#/Vol] 0.5 10*3/uL Normal 0.0-0.8 [facility] Comment on above: Performed By: #### H S TROP #### [place] [address] [place] Monocytes/100 WBC (Bld) 4.5 % Normal . [facility] Comment on above: Performed By: #### H S TROP #### [place] [address] [place] Neutrophils (Bld) [#/Vol] 7.8 10*3/uL High 1.8-7.7 [facility] Comment on above: Performed By: #### H S TROP #### [address] Neutrophils/100 WBC (Bld) 73.4 % Normal . [facility] Comment on above: Performed By: #### H S TROP #### [address] Nucleated RBC/100 WBC (Bld) [Ratio] 0.0 % Normal 0-0.5 [facility] Comment on above: Performed By: #### H S TROP #### [address] Platelet Estimate Normal Normal Normal [facility] Comment on above: Performed By: #### H S TROP #### [address] Platelet mean volume (Bld) [Entitic vol] 8.7 fL Normal 6.3-10.7 [facility] Comment on above: Performed By: #### H S TROP #### [address] Platelet Morphology Normal Normal Normal [facility] Comment on above: Result Comment: PERF ORMED BY: [place] [address] PATHOLOGIST MANAGER [employer] CUCA VOGT M.D. Performed By: #### H S TROP #### [address] Platelets (Bld) [#/Vol] 269 10*3/uL Normal 150-450 [facility] Comment on above: Performed By: #### H S TROP #### [address] RBC (Bld) [#/Vol] 4.56 10*6/uL Normal 3.60-5.00 [facility] Comment on above: Performed By: #### H S TROP #### [address] WBC (Bld) [#/Vol] 10.6 10*3/uL Normal 4.5-11.0 [facility] Comment on above: Performed By: #### H S TROP #### [address] Arlene Ag Negativeon 04-16-20 Arlene Ag Negative Negative Normal Negative [facility] Comment on above: Result Comment: This is a duplicate Arlene SARS Antigen (SANTIAGO) result to be used for statistical tracking purpose only. PERFORMED BY: [place] [address] PATHOLOGIST MANAGER [employer]UM[employer] CUCA VOGT M.D. Performed By: #### C OVID 19 [facility], COVID-19 ARLENE, SOFIANEG #### [place] [phone] [place] Troponin I High Sensitivityo n 04-16-2022 Troponin I High Sensitivity 1946 pg/mL Off scale high 0-15 [facility] Comment on above: Result Comment: Resu lts called at 1106 on 04/16/22 PERFORMED BY: [place] [address] PATHOLOGIST MANAGER [employer] CUCA VOGT M.D. Performed By: #### C OVID 19 [facility], COVID-19 ARLENE, SOFIANEG #### [place] [id number] [place] Troponin I High Sensitivity 104 pg/mL Off scale high 0-15 [facility] Comment on above: Result Comment: Resu lts called at 0439 on 04/16/22 PERFORMED BY: [place] [address] PATHOLOGIST MANAGER [employer] CUCA VOGT M.D. Performed By: #### H S TROP #### [address] Troponin I High Sensitivity 13 pg/mL Normal 0-15 [facility] Comment on above: Result Comment: PERF ORMED BY: [place] [address] PATHOLOGIST MANAGER [employer] CUCA VOGT M.D. Performed By: #### C OVID 19 [facility], COVID-19 ARLENE, SOFIANEG #### [place] [phone] [place] XR chest 1V portableon 04-16 XR chest 1V portable [facility] Main [place] [address] [place], [place] [id number] XRay Report Signed Patient: Kusum Huerta MR#: [id number] 01 : 1950 Acct:[id number] Age/Sex: 72 / F ADM Date: 04/16/22 Loc: Room: [address] [place] [address] Type: ADM IN Attending Dr: Kali Helton [...] Parish Muir M.D.04/16/2022 8:37 AM Dictation Location: [place] [address] Transcribed By: [facility] 04/16/22 0837 Dictated By: Parish Muir DO 04/16/22 0835 Signed By: 04/16/22 0837 Normal [facility] COVID Quick Testingon 2020 Result Positive [employer] Other Automated blood platelet cou nt (count/volume)on 03-04-2021 Platelets (Bld) [#/Vol] 249 10*3/uL 150-450 [facility] Automated blood platelet oracio n volume measurementon 03-04-2021 Platelet mean volume (Bld) [Entitic vol] 8.2 fL 6.3-10.7 [facility] Automated erythrocyte distri bution width ratioon 03-04-2021 Erythrocyte distribution width (RBC) [Ratio] 17.4 % 11.9-15.3 [facility] Automated erythrocyte mean c orpuscular hemoglobin (mass per erythrocyte)on 03-04-2021 MCH (RBC) [Entitic mass] 27.2 pg 24.7-34.3 [facility] Automated erythrocyte mean c orpuscular hemoglobin concentration measurement (mass/volon 03-04-2021 MCHC (RBC) [Mass/Vol] 32.7 g/dL 32.0-35.0 [facility] Automated erythrocyte mean c orpuscular volumeon 03-04-2021 MCV (RBC) [Entitic vol] 83.2 fL 80-100 [facility] Blood erythrocytes automated count (number/volume)on 03-04-2021 RBC (Bld) [#/Vol] 3.83 10*6/uL 3.60-5.00 [facility] Blood hemoglobin measurement (mass/volume)on 03-04-2021 Hemoglobin (Bld) [Mass/Vol] 10.4 g/dL 11.8-15.4 [facility] Blood leukocytes automated c ount (number/volume)on 03-04-2021 WBC (Bld) [#/Vol] 9.9 10*3/uL 3.8-11.6 [facility] Body fluid albumin measureme nt (mass/volume)on 03-04-2021 Albumin (Body fld) [Mass/Vol] 3.6 g/dL 3.2-5.5 [facility] Estimated glomerular filtrat ion rate (GFR) non- Americanon 03-04-2021 GFR/1.73 sq M predicted among non-blacks MDRD (S/P/Bld) [Vol rate/Area] 27 mL/Min [facility] Hematocrit [Volume Fraction] of Blood by Automated counton 03-04-2021 Hematocrit (Bld) [Volume fraction] 31.9 % 34.0-46.4 [facility] Otheron 03-04-2021 GFR/1.73 sq M.predicted MDRD (S/P/Bld) [Vol rate/Area] 33 mL/Min [facility] Comment on above: GFR estimated refere nce range: According to KDOQI guidelines, <60 ml/min/1.73m2 is sufficient to diagnose a patient with chronic kidney disease. Pharmacy Creatinine Clearance (Chem N/A [facility] Protein [Mass/volume] in Ser um or Plasmaon 03-04-2021 Protein [Mass/Vol] 6.6 g/dL 6.1-7.9 [facility] Serum globulin measurement b y calculation (mass/volume)on 03-04-2021 Globulin (S) [Mass/Vol] 3.0 g/dL [facility] Serum or plasma alanine fleming otransferase measurement without P-5'-P (enzymatic activion 03-04-2021 ALT No additional P-5'-P [Catalytic activity/Vol] 12 U/L 10-60 [facility] Serum or plasma albumin/glob ulin mass ratioon 03-04-2021 Albumin/Globulin [Mass ratio] 1.2 {ratio} [facility] Serum or plasma alkaline greyson sphatase measurement (enzymatic activity/volume)on 03-04-2021 ALP [Catalytic activity/Vol] 155 U/L 32-92 [facility] Serum or plasma aspartate am inotransferase measurement (enzymatic activity/volume)on 03-04-2021 AST [Catalytic activity/Vol] 12 U/L 10-42 [facility] Serum or plasma calcium terence urement (mass/volume)on 03-04-2021 Calcium [Mass/Vol] 8.8 mg/dL 8.2-10.2 [facility] Serum or plasma chloride oracio surement (moles/volume)on 03-04-2021 Chloride [Moles/Vol] 104 mmol/L 95-114 [facility] Serum or plasma creatinine m easurement with calculation of estimated glomerular filtron 03-04-2021 Creatinine [Mass/Vol] 1.82 mg/dL 0.44-1.03 [facility] Serum or plasma glucose terence urement (mass/volume)on 03-04-2021 Glucose [Mass/Vol] 109 mg/dL 70-100 [facility] Comment on above: ADA recommended refe rence rangeRandom Glucose Reference Range is dependent on time and content of last meal. Glucose of more than 200 mg/dL in a nonstressed, ambulatory subject supports the diagnosis of Diabetes Mellitus. Serum or plasma potassium me asurement (moles/volume)on 03-04-2021 Potassium [Moles/Vol] 5.6 mmol/L 3.5-5.1 [facility] Serum or plasma sodium measu rement (moles/volume)on 03-04-2021 Sodium [Moles/Vol] 135 mmol/L 136-146 [facility] Serum or plasma total biliru bin measurement (mass/volume)on 03-04-2021 Bilirubin [Mass/Vol] 1.0 mg/dL 0.3-1.2 [facility] Serum or plasma total carbon dioxide measurement (moles/volume)on 03-04-2021 CO2 [Moles/Vol] 23.9 mmol/L 22.0-30.[address] [facility] Serum or plasma urea nitroge n measurement (mass/volume)on 03-04-2021 Urea nitrogen [Mass/Vol] 37 mg/dL 08-15 [facility] Vital Signs Date Time Vital Sign Value Performing Clinician Facility 08-20-2023 11:08-0400 Body height 160.02 cm James Jasso [employer] Work Phone: [facility] [employer] 600 DO Work Phone: 08-20-2023 11:08-0400 Body mass index (BMI) [Ratio] Medical Reason Not Done James Jasso [employer] Work Phone: [facility] [employer] 600 DO Work Phone: 08-20-2023 11:08-0400 Diastolic blood pressure 52 mm[Hg] James Jasso [employer] Work Phone: [facility] [employer] 600 DO Work Phone: 08-20-2023 11:08-0400 Heart rate 70 /min James Jasso [employer] Work Phone: [facility] [employer] 600 DO Work Phone: 08-20-2023 11:08-0400 Systolic blood pressure 110 mm[Hg] James Jasso [place] Work Phone: [facility] [employer] 600 DO Work Phone: 04-30-2022 10:57-0400 Body height 160.02 cm James Jasso [employer] Work Phone: [facility] 250 DO Work Phone: 04-30-2022 10:57-0400 Body mass index (BMI) [Ratio] 36.67 kg/m2 James Pereira Work Phone: [facility] 250 DO Work Phone: 04-30-2022 10:57-0400 Body surface area Derived from formula 1.96 m2 James Pereira Work Phone: [facility] 250 DO Work Phone: 04-30-2022 10:57-0400 Body weight 93.9 kg James Pereira Work Phone: [facility] 250 DO Work Phone: 04-30-2022 10:57-0400 Diastolic blood pressure 50 mm[Hg] James Pereira Work Phone: [facility] 250 DO Work Phone: 04-30-2022 10:57-0400 Heart rate 64 /min James Pereira Work Phone: [facility] 250 DO Work Phone: 04-30-2022 10:57-0400 Systolic blood pressure 120 mm[Hg] James Pereira Work Phone: [facility] 250 DO Work Phone: 04-16-2022 00:00-0400 60 1 Ingrid Contreras DO Work Phone: [facility] 250 DO Work Phone: Comment on above: [id number] 10-12-2021 14:30-0500 Body height Maxine Camachoaker Other [place] [address] Other 10-12-2021 14:30-0500 Body mass index (BMI) [Ratio] 36.61 kg/m2 Maxine Sawyer Other [employer] Other 10-12-2021 14:30-0500 Body temperature 98.7 [degF] Maxine Sawyer Other [employer] Other 10-12-2021 14:30-0500 Body weight 99.79 kg Maxine Sawyer Other [employer] Other 10-12-2021 14:30-0500 Diastolic blood pressure 58 mm[Hg] Maxine Sawyer Other [employer] Other 10-12-2021 14:30-0500 SaO2% (BldA) [Mass fraction] 92 % Maxine Sawyer Other [employer] Other 10-12-2021 14:30-0500 Systolic blood pressure 94 mm[Hg] Maxine Sawyer Other [employer] Other Encounters Encounter Date Encounter Type Care Provider Facility Start: 12-17-2023 End: 12-17-2023 ambulatory SHAIKH OTILIA Not Available Start: 12-16-2023 End: 12-16-2023 ambulatory TRENT CORTEZ Not Available Start: 12-02-2023 End: 12-02-2023 ambulatory SHAIKH OTILIA Not Available Start: 11-25-2023 Orders Only Not In System Ref Prov [facility] Start: 11-19-2023 End: 11-24-2023 Emergency department patient visit JAMES PEREIRA [facility] Start: 11-12-2023 End: 11-12-2023 ambulatory ZENA ESPINOSA Not Available Start: 08-20-2023 Office outpatient vi sit 25 minutes James Pereira Work Phone: [place] [address] DO Work Phone: Start: 08-20-[address] Ingrid Ibarra II Facility: Start: 12-27-2022 End: 12-27-2022 ambulatory LARA EDOUARD Facility:[facility] Start: 06-17-2022 Patient encounter procedure James Pereira Work Phone: [facility] 250 DO Work Phone: Start: 04-30-2022 Office outpatient vi sit 25 minutes James Jasso Upton Work Phone: [facility] 250 DO Work Phone: Start: 04-22-2022 Patient encounter procedure Ingrid Contreras DO Work Phone: [facility] 250 DO Work Phone: Start: 04-16-2022 End: 04-18-2022 Evaluation and management of inpatient James Gail Facility:[facility] Start: 10-12-2021 End: 10-12-2021 ambulatory Maxine Sawyer Other [facility] [employer] Other Start: 10-12-2021 Office outpatient vi sit 15 minutes Maxine Sawyer [facility] Start: 03-04-2021 End: 03-04-2021 Patient encounter procedure James Gail [facility] [place] Start: 07-22-2017 Ambulatory INGRID IBARRA Facil [id number] Procedures Date Procedure Procedure Detail Performing Clinician Start: 11-23-2023 MULTIPLE LABS Not In Sy stem Ref Prov Start: 11-23-1979 Total colonoscopy Willi am Ben DO Work Phone: Appendectomy [place] [facility] B[facility] l Work Phone: Arthroplasty of knee James Jasso Upton Work Phone: Cardiac catheterization Will rey Ben DO Work Phone: Cholecystectomy James E Any stol Work Phone: Hysterectomy [place] [facility] Brist[facility] Work Phone: Removal of thrombus James Pereira Work Phone: Surgical procedure o n eye proper James Pereira Work Phone: Plan of Treatment Date Care Activity Detail Author Start: 12-25-2031 DTaP,Tdap and Td Vaccines (2 - Td or Tdap) DTaP,Tdap and Td Vaccines (2 - Td or Tdap) [facility] Start: 07-24-2023 Influenza vaccination Influenza Vaccine [facility] Start: 07-10-2022 FUV, Provider: Ingrid Ibarra, Status: Pen, Time: 10:50 AM FUV, Provider: Ingrid Ibarra, Status: Pen, Time: 10:50 AM [facility] [employer] 250 DO Work Phone: Start: 04-30-2022 FUV, Provider: Cristal Grant, Status: Pen, Time: 10:30 AM FUV, Provider: Cristal Grant, Status: Pen, Time: 10:30 AM [facility] Work Phone: Start: 01-15-2022 Adult BMI Screening Adult BMI Screening [facility] Start: 2015 Fall Risk Screening Fall Risk Screening [facility] Start: 2000 Administration of varicella zoster vaccine Zoster (Shingles) Vaccine (1 of 2) [facility] Start: 1962 Depression Screening Depression Screening [facility] Start: 1962 Tobacco Screening Tobacco Screening [facility] Start: 1950 Medicare Annual Wellness Visit Medicare Annual Wellness Visit [facility] Immunizations Immunization Date Immunization Notes Care Provider Fa cility 12-25-2021 tetanus toxoid, redu zak diphtheria toxoid, and acellular pertussis vaccine, adsorbed James Pereira [facility]: [facility] Work Phone: 09-11-2020 influenza virus vacc ine, unspecified formulation [facility]: [facility] Work Phone: 09-08-2020 Fluzone QIV High-Dos e 65YR+ James [facility] 09-08-2020 influenza virus vacc ine, unspecified formulation Not Ref Prov [facility] 10-14-2019 influenza, high dose seasonal, preservative-free James [facility] 07-24-2017 pneumococcal polysaccharide vaccine, 23 valent James Pereira Work Phone: [facility] 250 DO Work Phone: 08-28-2015 influenza, high dose seasonal, preservative-free James Pereira Work Phone: [facility] 250 DO Work Phone: influenza virus vacc ine, unspecified formulation [facility]: [facility] Work Phone: Comment on above: Aug 20122012 Payers Date Payer Category Payer Medicare [employer] MEDICARE UHC MEDICARE ADVANTAGE PPO [id number] 2023-Present [phone] [address] [address] [place] [address] [id number] 2023 Private Health Insurance [id number] 2022 Medicare [id number] 2022 Private Health Insurance [id number] 2022 Self-pay [id number] 1959 Private Health Insurance [id number] 1950 Unknown [id number] [id number] 1950 Unknown [id number] 2.1258 1950 Unknown [id number] 2.1259 1950 Unknown [id number] 2.1259 1950 Unknown [id number]. [id number] 1950 Unknown [id number]. [id number] 1950 Unknown [id number] [id number]. 2.1286 1950 Unknown [id number] 2.1259 Private Health Insurance [id number] Unknown [employer] Unknown [id number] [id number] Social History Date Type Detail Facility Start: 07-05-2018 End: 10-02-2020 Tobacco smoking status NHIS Ex-smoker (finding) [facility] Work Phone: Start: 1950 Sex Assigned At Female F [facility] Start: 12-18-2020 End: 01-15-2021 No illicit drug use No illicit drug use [place] [address] DO Work Phone: Comment on above: Quit 1993; 4 cups tea daily; Start: 12-18-2020 End: 01-15-2021 Sex Assigned At [employer] Other History of tobacco use Current smoker [facility] Start: 07-05-2018 Tobacco use and exposure Smokeless tobacco non-user [facility] Start: 01-15-2021 Alcohol intake 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) [facility] Housing Instability Unknown [facility] Start: 1950 Sex Assigned At [facility] file [facility] Medical Equipment Procedure Code Equipment Code Equipment Original Text Equipment Identifier Dates FDA Start: 10-13-2019 [id number] FDA Start: 10-13-2019 Goals Date Patient Goal Desired [...] authenticated by: RODERICK ESTRELLA Date: 2022-12-27 15:58 [facility] Clinical Note 12-27-2022 Note Date & [...] by: RODERICK ESTRELLA Date: 2022-12-27 15:58 [facility] Evaluation note 10-12-2021 Note Date & Type [...] Patient care instructions given in writting by [facility] Care At Home document. [employer] Other History general Narrative - Reported Note Date & Type Note Facility History general Narrative - Reported Type Medical History hypertension Medical History chronic kidney disease stage 3 Surgical History gall bladder Surgical History appendectomy Surgical History knee replacement, left Surgical History HEART CATH WITH STENT PLACEMENT X1 Hospitalization History see above Hospitalization History URINARY TRACT INFECTION 05/2020 Hospitalization History BLOOD PRESSURE ISSUES [employer] Other History of Present illness Narrative Note [...] medication regimen. She denies medication side effects. [facility] Work Phone: History of Present [...] diet and weight loss were again advocated. -[facility] 600 DO Work Phone: Instructions Note Date & Type Note Facility Instructions Not on filedocumented in this en counter [facility] Summary Purpose Family History No Family [...] pain. * Patient was recently hospitalized at [facility]. The patient was seen in Cardiology consult with subsequent cardiovascular management by [facility]. Hospitalization records have been reviewed. * Reason for Cardiology Consultation: ACS * Consulting Matlab Developer: Dr. Contreras * Cardiovascular testing: cardiac cath [...] section and content) DATE CREATED AUTHOR 05/19/2018 [facility] Healthcare DATE CREATED AUTHOR AUTHOR'S ORGANIZ ATION 12/27/2022 [facility] DATE CREATED AUTHOR AUTHOR'S ORGANIZ ATION 12/29/2022 [facility] DATE CREATED AUTHOR AUTHOR'S ORGANIZ ATION 08/28/2023 [employer] DATE CREATED AUTHOR AUTHOR'S ORGANIZ ATION 10/07/2023 [facility] DATE CREATED AUTHOR AUTHOR'S ORGANIZ ATION 11/24/2023 [facility] DATE CREATED AUTHOR AUTHOR'S ORGANIZ ATION 12/18/2023 [facility] EPIC REASON FOR VISIT (unrecogniz ed section and content) #13 NOT VACCINATED, NO POS C OVID EXP, COUGH, CONGESTION, FEVER Care Teams (unrecognized sec tion and content) 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 [employer] provides no warranty or guarantee of the accuracy or completeness of information in this document.
== END 2023-12-31 08:30 | disposition home or self-care (01) ==
LOC: NM 08:29
PROVIDERS: PCP Internal Medicine; Visit Provider Internal Medicine Hematology & Oncology
DX: D64.9 Anemia, unspecified (principal); R93.89 Abnormal findings on diagnostic imaging of other specified body structures; M85.80 Other specified disorders of bone density and structure, unspecified site
CPT/HCPCS: 78306; A9503

== ENCOUNTER 2024-01-24 22:36 | Inpatient (IN) | payer MEDICARE, SELFPAY ==
[2024-01-24] VITALS (10 sets, daily range): BP systolic 109–141; BP diastolic 70–82; PULSE 98–124; RESP 15–23; TEMP 37; O2SAT 93–98; BMI 33.7
--- OUTSIDE RECORDS SUMMARY | 2024-01-24 22:45 | XMS_ITS | CCD ---
Author Name Unknown Address [address] [place] [address] Organization [facility] Care Team Providers Care Vascular Ultrasound Technologist Name Role Phone INGRID IBARRA Unavailable Unavailable INGRID IBARRA Unavailable Unavailable James Pereira Primary Care Provider NON, STAFF, Attending Provider Unavailable Unavailable Unavailable James Pereira Unavailable Unavailable Unavailable Brian Sawyer Unavailable Unavailable Unavailable DIAB, LARA Admitting Unavailable OMAR EDOUARDM Attending Unavailable KELLI, DR CASTILLO Primary Care Unavailable RODERICK ESTRELLA Consulting Unavailable CHARLEY LUCAS Consulting Unavailable MARLON METCALF Consulting Unavailable DIAB, LARA Consulting Unavailable Julio WALLER, Dr. Ingrid Palma Attending Unavailable Julio WALLER, Dr. Ingrid Palma Referring Unavailable Dr. James Pereira Primary Care Unavailable JAMES PEREIRA Primary Care Unavailable GILMER, EHAD Consulting Unavailable INPATIENT, TELENEUROLOGY Consulting Unavail able James Pereira DO Primary Care Provider [phone] Shaikh Serna MD Primary Care Provider MD Mary Espana Attending Provider [phone] MD Laury Serna Primary Care Provider [phone] Shaikh Serna Primary Care Unavailable Mary Espana Attending Unavailable Mary Espana Admitting Unavailable SHAIKH SERNA Attending Unavailable TRENT RAMIREZ Attending Unavailable SHAIKH SERNA Attending Unavailable ANTONY GRANT Attending Unavailable Unavailable Unavailable Unavailable Allergies Allergy Classification Reported Allergen(s) Allergy Type Date of Onset Reaction(s) Facility (1 source) Non-steroidal anti-inflammator y agent Drug Allergy 11-12-2023 Unknown [facility] Medications Current Medications Medication Drug Class(es) Dates Sig (Normalized) Sig (Original) acetaminophen 325 mg oral tablet (6 sources) Start: 09-09-2020 take 650 mg by mouth every six hours Acetaminophen Active 650 MG PO Q6H 0 September 09, 2020 12:35pm take 1 tablet by mouth every six hours acetaminophen (Tylenol) 325 MG tablet Take 325 mg by mouth every 6 (six) hours 0 Active [id number] actuat albuterol 0.09 mg/actuat metered dose inhaler (3 sources) beta2-Adrenergic Agonist Start: 12-02-2023 End: 01-01-2024 take 2 puff(s) by inhalation every four hours for wheezing albuterol HFA 90 mcg/act inhaler Indications: Chronic obstructive pulmonary disease, unspecified COPD type ([facility]) Inhale 2 puffs every 4 (four) hours if needed for wheezing or shortness of breath 8.5 g 1 12/02/2023 01/01/2024 Active Start: 10-25-2021 End: 12-25-2021 take 1 puff(s) by inhalation every four hours Albuterol Sulfate (Ventolin Hfa) 90 mcg/actuation Hfa Aerosol Inhaler Discontinued 2 PUFF INHALATION Q4H 1 October 25, 2021 12:00am December 25, 2021 5:35pm Start: 10-12-2021 take 2 puff(s) by in halation every four hours as needed Albuterol Sulfate HFA 108 (90 Base) MCG/ACT 2 puffs Inhalation every 4 hours as needed for 7 days Sep, Active amLODIPine 10 mg oral tablet (10 sources) Dihydropyridine Calcium Channel Bronwyn Start: 08-20-2023 take 1 tablet by mouth once daily amLODIPine Besylate 5 MG Oral Tablet TAKE 1 TABLET DAILY. Quantity: 90 Refills: 3 Ordered: 20-Aug-2023 Ingrid Ibarra MD Start : 20-Aug-2023 Active Start: 04-20-2018 End: 09-09-2020 take 10 mg by mouth once daily in the morning Amlodipine Discontinued 10 MG PO Every morning April 04, 2019 11:00pm September 09, 2020 11:40am aspirin 81 mg chewable tablet (9 sources) Platelet Aggregation Inhibitor, Nonsteroidal Anti-inflammatory Drug Start: 10-14-2019 End: 08-29-2020 take 81 mg by mouth once daily in the morning Aspirin Active 81 MG PO Every morning August 29, 2020 3:42pm take 1 tablet by mouth in the mo rning aspirin 81 MG EC tablet Take 81 mg by mouth in the morning. 0 Active atorvastatin 80 mg oral tablet (8 sources) HMG-CoA Reductase Inhibitor Start: 04-18-2022 take 80 mg by mouth once daily in the evening Atorvastatin Active 80 MG PO Every evening April 17, 2022 11:00pm Start: 10-13-2019 End: 04-18-2022 take 40 mg by mouth once daily in the evening Atorvastatin Discontinued 40 MG PO Every evening September 09, 2020 11:39am April 18, 2022 12:26pm azithromycin 250 mg oral tablet (1 source) Macrolide Antimicrobial Zithromax Z-David 250 MG 2 tablet on the first day, then 1 tablet daily for 4 days Orally Once a day for 5 day(s) Active b complex vitamins capsule (1 source) take 1 capsule by mouth in the morning b complex vitamins capsule Take 1 capsule by mouth in the morning. 0 Active biotin 10 mg oral capsule (2 sources) Start: 12-16-19 End: 01-15-20 take 1 tablet by mouth in the morning biotin 10 MG tablet Indications: Iron deficiency anemia due to chronic blood loss , Idiopathic progressive neuropathy Take 1 tablet (10 mg) by mouth in the morning and 1 tablet (10 mg) before bedtime. 60 tablet 12/16/2023 01/15/2024 Active Start: 12-16-2023 End: 12-10-2024 take 1 capsule by mouth in the morning biotin 10 MG capsule Indications: Iron deficiency anemia due to chronic blood loss , Idiopathic progressive neuropathy Take 1 capsule (10 mg) by mouth in the morning. 30 capsule 12/16/2023 12/10/2024 Active buprenorphine 8 mg / naloxone 2 mg sublingual film (2 sources) Partial Opioid Agonist, Opioid Antagonist Start: 11-09-2023 Buprenorphine HCl-Naloxone HCl (Suboxone) 8-2 MG SL film DISSOLVE 1.5 film UNDER THE TONGUE ONCE DAILY 0 11/09/2023 Active Buprenorphine HC l-Naloxone HCl - 8-2 MG Sublingual Film as directed Quantity: 0 Refills: 0 Ordered: 20-Aug-2023 DO Active 168 hr cloNIDine 0.51821 mg/hr transdermal system (3 sources) Central alpha-2 Adrenergic Agonist Start: 12-24-2020 cloNIDine (CATAPRES- TTS) 0.2 mg/24 hr apply ONE PATCH EACH Week @0900 IN THE MORNING 0 12/24/2020 Active Start: 09-09-2020 End: 12-25-2021 Clonidine Active 1 EACH URIBE SDERML We@0900 4 September 09, 2020 12:35pm diclofenac sodium 0.01 mg/mg topical gel (1 source) Nonsteroidal Anti-inflammatory Drug Start: 03-24-2019 diclofenac sodium (VOLTAREN) 1 % gel Apply 2 g topically 4 (four) times a day. 100 g 0 03/24/2019 Active ferrous sulfate 325 mg oral tablet (9 sources) Start: 12-02-2023 End: 03-01-2024 take 1 tablet by mouth at mealtime ferrous sulfate (FerrouSul) 325 (65 Fe) MG tablet Indications: Iron deficiency anemia due to chronic blood loss Take 1 tablet (325 mg) by mouth in the morning. Take with meals. 30 tablet 2 12/02/2023 03/01/2024 Active Start: 08-29-2020 End: 09-09-2020 take 325 mg by mouth once daily in the morning Ferrous Sulfate Active 325 MG PO Every morning September 09, 2020 11:39am take 1 tablet by lucio th once daily at breakfast ferrous sulfate 325 (65 FE) mg tablet Take 325 mg by mouth daily with breakfast. 0 Active take 1 tablet by mouth once scott y Ferrous Sulfate 324 MG Oral Tablet Delayed Release Take 1 tablet daily Quantity: 0 Refills: 0 Ordered: 30-Apr-2022 DO Active furosemide 40 mg oral tablet (3 sources) Loop Diuretic Start: 01-06-2024 take 1 tablet by mouth once daily Furosemide (Lasix) 40 mg tablet Active 40 MG PO Daily January 06, 2024 12:00am Start: 08-20-2023 take 1 tablet by lucio th in the morning furosemide (Lasix) 20 MG tablet Take 20 mg by mouth in the morning. 0 08/20/2023 Active gabapentin 100 mg oral capsule (1 source) Anti-epileptic Agent Start: 11-23-2023 take 1 capsule by mouth in the morning, then take 1 capsule by mouth in the evening, then take 1 capsule by mouth at bedtime gabapentin (Neurontin) 100 MG capsule Take 100 mg by mouth in the morning and 100 mg in the evening and 100 mg before bedtime. 0 11/23/2023 Active hydroCHLOROthiazide 25 mg oral tablet (8 sources) Thiazide Diuretic Start: 09-09-2020 End: 04-18-2022 take 1 tablet by mouth once daily hydroCHLOROthiazide (HYDRODIURIL) 25 mg tablet Take 25 mg by mouth daily. 0 12/24/2020 Active Start: 06-05-2020 End: 09-09-2020 take 12.5 mg by mouth once daily in the morning Hydrochlorothiazide Discontinued 12.5 MG PO Every morning August 29, 2020 3:42pm September 09, 2020 11:40am further refills per PCP or Dr. Ibarra magnesium gluconate 550 mg oral tablet (1 [...] Active metoprolol tartrate 25 mg oral tablet (10 sources) beta-Adrenergic Bronwyn Start: 09-09-2020 take 25 mg by mouth every twelve hours Metoprolol Tartrate Active 25 MG PO Every 12 hours 60 30 September 09, 2020 12:30pm Start: 06-03-2020 End: 09-09-2020 take 50 mg by mouth every twelve hours Metoprolol Tartrate Discontinued 50 MG PO Every 12 hours June 03, 2020 11:09am September 09, 2020 12:40pm Start: 06-24-2018 take 1 tablet by lucio every twelve hours metoprolol tartrate (LOPRESSOR) 50 mg tablet 50 mg every 12 (twelve) hours. 3 06/24/2018 Active take 1 tablet by lucio twice daily Metoprolol Tartrate 25 MG Oral Tablet TAKE 1 TABLET TWICE DAILY. Quantity: 0 Refills: 0 Ordered: 8-Immanuel-2022 DO Active take 1 tablet by lucio [...] DO Active nitroglycerin 0.4 mg sublingual tablet (6 sources) Nitrate Vasodilator Start: 10-14-2019 Nitroglycerin Active 0.4 MG SUBLINGUAL Q5M October 14, 2019 10:44am omeprazole 40 mg delayed release oral capsule (1 source) Proton Pump Inhibitor Start: 12-17-2023 End: 03-16-2024 take 1 capsule by mouth before mealtime omeprazole (PriLOSEC) [address] capsule Indications: Gastroesophageal reflux disease without esophagitis Take 1 capsule (40 mg) by mouth in the morning. Take before meals. Do not crush or chew.. 90 capsule 0 12/17/2023 03/16/2024 Active predniSONE 20 mg oral tablet (3 sources) Start: 12-16-2023 End: 01-09-2024 predniSONE (Deltasone) 20 MG tablet Indications: Iron deficiency anemia due to chronic blood loss , Idiopathic progressive neuropathy 3 pills po daily X3 days, then 2 pills po daily X3 days , then 1 pill po daily X3 days then stop 9 days ,18 pills 18 tablet 1 12/30/2023 01/09/2024 Active Start: 10-12-2021 take 2 tablets by [facility] every twenty-four hours predniSONE 20 MG 2 tablets Orally Once a day for 5 days Sep, Active spironolactone 25 mg oral tablet (2 sources) Aldosterone Antagonist Start: 12-03-2023 End: 12-02-2024 take 1 tablet by mouth in the morning spironolactone (Aldactone) 25 MG tablet Take 25 mg by mouth in the morning. 0 12/03/2023 12/02/2024 Active take 1 tablet by mouth once scott y Spironolactone 25 MG Oral Tablet TAKE 1 TABLET DAILY. Quantity: 90 Refills: 3 Ordered: 20-Aug-2023 DO Active thiamine 100 mg oral tablet (2 sources) Start: 12-16-2023 End: 12-15-2024 take 1 tablet by mouth in the morning thiamine (Vitamin B-1) 100 MG tablet Indications: Iron deficiency anemia due to chronic blood loss , Idiopathic progressive neuropathy Take 1 tablet (100 mg) by mouth in the morning. 30 tablet 11 12/16/2023 12/15/2024 Active tiZANidine 4 mg oral tablet (1 source) Central alpha-2 Adrenergic Agonist Start: 12-17-2023 End: 03-16-2024 take 1 tablet by mouth every eight hours for muscle spasms tiZANidine (Zanaflex) 4 MG tablet Indications: Muscle spasms of both lower extremities Take 1 tablet (4 mg) by mouth every 8 (eight) hours if needed for muscle spasms 90 tablet 2 12/17/2023 03/16/2024 Active torsemide 5 mg oral tablet (1 source) Loop Diuretic Start: 07-30-2020 torsemide (DEMADEX) 5 mg tablet traMADol hydrochloride 50 mg oral tablet (5 sources) Opioid Agonist Start: 02-28-2021 take 1 [...] 4:39pm August 29, 2020 4:43pm Start: 04-05-2019 End: 12-25-2021 take 50 mg by mouth every six hours Tramadol Active 50 MG PO Every 6 hours April 05, 2019 3:44pm valsartan 80 mg oral tablet (5 sources) Angiotensin 2 Receptor Bronwyn Start: 04-18-2022 take 1 tablet by mouth in the morning valsartan (Diovan) 80 MG tablet Take 80 mg by mouth in the morning. 0 08/20/2023 Active Vitamin B Comp And C No.3 (2 sources) Start: 06-05-2020 take 1 capsule by mouth once daily at mealtime Vitamin B Comp And C No.3 Active 1 CAP PO Daily June 05, 2020 4:59pm give with food (meal/snack) Start: 06-05-2020 take 1 capsule by mo [facility] once daily at mealtime Vitamin B Comp And C No.3 Active 1 CAP PO Daily June 04, 2020 11:00pm give with food (meal/snack) Vitamin B12 500 MCG (1 source) take 1 tablet by lucio once daily Vitamin B12 500 MCG 1 tablet Orally Once a day Active Completed/Discontinued Medications Medication Drug Class(es) Dates Sig (Normalized) Sig (Original) bacitracin 0.5 unt/mg ophthalmic ointment (4 sources) Start: 09-06-2020 End: 10-22-2021 Bacitracin Discontinued 1 APPLIC OPHTHALMIC Q8H October 02, 2020 12:00am October 21, 2021 8:50am cephalexin 500 mg oral capsule (1 source) Cephalosporin Antibacterial Start: 10-25-2021 End: 12-25-2021 take 500 mg by mouth twice daily Cephalexin Discontinued 500 MG PO Twice daily 4 October 25, 2021 12:00am December 25, 2021 5:35pm clopidogrel 75 mg oral tablet (9 sources) P2Y12 Platelet Inhibitor Start: 10-14-2019 End: 10-21-2021 take 1 tablet by mouth once daily in the morning Clopidogrel (Plavix) 75 mg tablet Discontinued 75 MG PO Every morning September 09, 2020 11:39am October 21, 2021 8:50am dexamethasone 6 mg oral tablet (1 source) Corticosteroid Start: 10-25-2021 End: 12-25-2021 take 6 mg by mouth once daily Dexamethasone Discontinued 6 MG PO Daily October 25, 2021 12:00am December 25, 2021 5:36pm famotidine 20 mg oral tablet (1 source) Histamine-2 Receptor Antagonist Start: 10-25-2021 End: 12-25-2021 take 20 mg by mouth once daily Famotidine Discontinued 20 MG PO Daily 14 October 25, 2021 12:00am December 25, 2021 5:36pm 17 ml ferumoxytol 30 mg/ml injection (1 source) Parenteral Iron Replacement Start: 07-03-2020 Ferumoxytol 510 MG/17ML as directed Intravenous Jun, Not-Taking 12 hr guaiFENesin 600 mg extended release oral tablet (1 source) Start: 10-25-2021 End: 12-25-2021 take 2 tablets by mouth twice daily, then take 1 tablet by mouth every twelve hours Guaifenesin (Mucinex) 600 mg Tablet Extended Release 12hr Discontinued 1200 MG PO Twice daily 56 October 25, 2021 12:00am December 25, 2021 5:36pm lisinopril 40 mg oral tablet (8 sources) Angiotensin Converting Enzyme Inhibitor Start: 04-05-2019 End: 04-06-2019 take 5 mg by mouth once daily Lisinopril Discontinued 5 MG PO Daily April 05, 2019 8:25am April 06, 2019 12:58pm Start: 04-20-2018 End: 04-18-2022 take 40 mg by mouth once daily in the morning Lisinopril Discontinued 40 MG PO Every morning 30 September 09, 2020 11:39am April 18, 2022 12:26pm Magnesium (6 sources) Start: 09-09-2020 End: 01-06-2024 take 400 mg by mouth once daily in the morning Magnesium Discontinued 400 MG PO Every morning 60 September 09, 2020 11:39am January 06, 2024 10:01am Start: 09-09-2020 take 400 mg by mouth once daily in the morning Magnesium Active 400 MG PO Every morning 60 September 09, 2020 12:39pm Start: 08-29-2020 End: 09-09-2020 take 400 mg by mouth once daily in the morning Magnesium Discontinued 400 MG PO Every morning August 29, 2020 4:39pm September 09, 2020 12:40pm Start: 08-29-2020 End: 09-09-2020 take 400 mg by mouth once daily in the morning Magnesium Discontinued 400 MG PO Every morning August 28, 2020 11:00pm September 09, 2020 11:40am take 1 tablet by lucio th once daily Magnesium 200 MG Oral Tablet TAKE 1 TABLET DAILY DIRECTED. Quantity: 0 Refills: 0 Ordered: 30-Apr-2022 DO Active Oxygen (1 source) Oxygen 3 LPM Vikram ntity: 0 Refills: 0 Ordered: 20-Aug-2023 DO Active potassium chloride 20 meq extended release oral tablet (3 sources) Start: 04-05-2019 End: 06-03-2020 take 20 mEq by mouth once daily [...] Ingrid Ibarra MD Start : 20-Aug-2023 Active rivaroxaban 10 mg oral tablet (1 source) Factor Xa Inhibitor Start: 10-25-2021 End: 12-25-2021 take 1 tablet by mouth once daily Rivaroxaban (Xarelto) 10 mg tablet Discontinued 10 MG PO Daily October 25, 2021 12:00am December 25, 2021 5:37pm ticagrelor 90 mg oral tablet (3 sources) Start: 04-22-2022 take 1 tablet by mouth twice daily Brilinta 90 MG Oral Tablet TAKE 1 TABLET TWICE DAILY. Quantity: 180 Refills: 3 Ordered: 22-Apr-2022 Ingrid Contreras DO Start : 22-Apr-2022 Active Start: 04-18-2022 End: 01-06-2024 take 1 tablet by mouth twice daily Ticagrelor (Brilinta) 60 mg Tablet Discontinued 90 MG PO Twice daily 270 90 April 17, 2022 11:00pm January 06, 2024 10:02am Vitamin B Complex CAPS (2 sources) Vitamin B Comple x CAPS TAKE 1 CAPSULE Daily Quantity: 0 Refills: 0 Ordered: 30-Apr-2022 DO Active Problems Active Problems Problem Classification Problem Date Documented Date Episodic/Chronic Acute and unspecified renal failure (7 sources) Acute renal failure syndrome; Translations: [Injury of kidney] Onset: 12-03-2023 12-16-2023 Episodic Administrative/social admission (1 source) Patient encounter status; Translations: [Persons encountering health services in other specified circumstances] Onset: 12-03-2023 12-03-2023 Episodic Chronic kidney disease (4 sources) Chronic kidney disease stage 3; Translations: [Chronic kidney disease, stage 3 (moderate)] Onset: 12-02-2023 12-02-2023 Chronic Complications of surgical procedures or medical care (2 sources) Trauma and postoperative pulmonary insufficiency; Translations: [Acute postprocedural respiratory failure] 09-04-2020 Episodic Conditions associated with dizziness or vertigo (2 sources) Dizziness; Translations: [Dizziness and giddiness] 04-05-2019 Episodic Congestive heart failure; nonhypertensive (5 sources) Acute congestive heart failure; Translations: [Congestive heart failure] Onset: 12-02-2023 12-02-2023 Chronic Coronary atherosclerosis and other heart disease (13 sources) Coronary arteriosclerosis; Translations: [Preinfarction syndrome] Onset: 12-29-2022 12-02-2023 Chronic Deficiency and other anemia (1 source) Iron deficiency anemia; Translations: [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 Deficiency and other anemia (2 sources) Iron deficiency anemia due to blood loss; Translations: [Iron deficiency anemia secondary to blood loss (chronic)] Onset: 12-02-2023 12-30-2023 Chronic Deficiency and other anemia (2 sources) Anemia; Translations: [Anemia, unspecified] 06-04-2020 Episodic Diabetes mellitus without complication (1 source) Blood glucose abnormal; Translations: [Other abnormal glucose] Onset: 12-02-2023 12-02-2023 Episodic Disorders of lipid metabolism (6 sources) Hyperlipidemia; Translations: [Mixed hyperlipidemia] Onset: 12-02-2023 12-02-2023 Chronic E Codes: Fall (2 sources) Fall on same level, unspecified, initial encounter; Translations: [Fall] Onset: 12-29-2022 12-25-2021 Episodic Esophageal disorders (1 source) Gastroesophageal reflux disease without esophagitis; Translations: [Gastro-esophageal reflux disease without esophagitis] Onset: 12-17-2023 12-17-2023 Chronic Essential hypertension (8 sources) Hypertensive disorder; Translations: [Essential hypertension] Onset: 12-02-2023 12-02-2023 Chronic Essential hypertension (1 source) Essential hypertension Onset: 07-22-2017 Fluid and electrolyte disorders (2 sources) Metabolic acidosis; Translations: [Metabolic acidosis] 04-16-2022 Episodic Fracture of upper limb (1 source) Other intraarticular fracture of lower end of left radius, initial encounter for closed fracture; Translations: [OTH IA FX LOW LT RADUS INIT CLOS FX] Onset: 12-29-2022 Episodic Hypertension with complications and secondary hypertension (5 sources) Hypertensive emergency; Translations: [Hypertensive urgency ] 04-05-2019 Chronic Immunizations and screening for infectious disease (2 sources) Contact with and (suspected) exposure to other viral communicable diseases; Translations: [Tetanus toxoid vaccination given] Onset: 10-12-2021 Resolved: 10-12-2021 Episodic Malaise and fatigue (5 sources) Malaise; Translations: [Asthenia] 06-03-2020 Episodic Nausea and vomiting (2 sources) Nausea; Translations: [Nausea] 04-05-2019 Episodic Nonspecific chest pain (6 sources) Chest pain; Translations: [Other chest pain] Onset: 12-27-2022 Episodic Nutritional deficiencies (1 source) Iron deficiency; Translations: [Iron deficiency] Chronic Nutritional deficiencies (1 source) Iron deficiency; Translations: [Iron deficiency] 06-04-2020 Episodic Open wounds of head; neck; and trunk (1 source) Laceration of right eyelid; Translations: [Laceration without foreign body of right eyelid and periocular area, initial encounter] 12-25-2021 Episodic Other aftercare (3 sources) Treatment changed; Translations: [Long-term (current) use of other medications] Episodic Other aftercare (1 source) Other exterminator termite (current) drug therapy; Translations: [OTH COLD ROLLER CURRENT DRUG THERAPY] Onset: 12-29-2022 Episodic Other bone disease and musculoskeletal deformities (1 source) Other specified disorders of bone density and structure, left lower leg; Translations: [OTH D/O BONE DEN STRUCT LT LOW LEG] Onset: 12-29-2022 Episodic Other circulatory disease (5 sources) Patient post angioplasty; Translations: [Other postprocedural status] Onset: 12-03-2023 12-16-2023 Episodic Other circulatory disease (4 sources) Carotid bruit; Translations: [Other symptoms involving cardiovascular system] Onset: 12-03-2023 12-16-2023 Episodic Other circulatory disease (1 source) H/O: heart failure; Translations: [Personal history of other diseases of the circulatory system] 10-21-2021 Episodic Other lower respiratory disease (2 sources) Hypoxia; Translations: [Hypoxemia] 06-03-2020 Episodic Other lower respiratory disease (4 sources) Dyspnea; Translations: [Shortness of breath] Onset: 12-03-2023 12-16-2023 Episodic Other nervous system disorders (1 source) Neuropathy; Translations: [Idiopathic progressive neuropathy] 12-30-2023 Chronic Other nervous system disorders (1 source) Walking disability; Translations: [Difficulty in walking, not elsewhere classified] Onset: 12-17-2023 12-17-2023 Chronic Other nervous system disorders (1 source) Chronic inflammatory demyelinating polyradiculoneuropathy ; Translations: [Chronic inflammatory demyelinating polyneuritis] Onset: 12-17-2023 12-17-2023 Chronic Other non-epithelial cancer of skin (4 sources) Malignant neoplasm of skin; Translations: [Basal cell carcinoma of face] 09-04-2020 Episodic Other non-traumatic joint disorders (1 source) Effusion, left knee; Translations: [EFFUSION LEFT KNEE] Onset: 12-29-2022 Episodic Other nutritional; endocrine; and metabolic disorders (8 sources) Body mass index 30+ - obesity; Translations: [Body Mass Index 34.0-34.9, adult] Onset: 12-03-2023 12-16-2023 Chronic Other nutritional; endocrine; and metabolic disorders (3 sources) Obesity; Translations: [Obesity, unspecified] Chronic Other nutritional; endocrine; and metabolic disorders (1 source) Hypomagnesemia; Translations: [Hypomagnesemia] Chronic Other nutritional; endocrine; and metabolic disorders (1 source) Hypercalcemia; Translations: [Hypercalcemia] Onset: 12-02-2023 12-02-2023 Chronic Other screening for suspected conditions (not mental disorders or infectious disease) (4 sources) Echocardiogram abnormal; Translations: [Nonspecific (abnormal) findings on radiological and other examination of other intrathoracic organs] Onset: 12-03-2023 12-16-2023 Episodic Other upper respiratory disease (1 source) Anterior epistaxis; Translations: [Epistaxis] 12-25-2021 Episodic Residual codes; unclassified (1 source) Physical deconditioning; Translations: [Physical deconditioning] Episodic Residual codes; unclassified (4 sources) Edema; Translations: [Edema] Onset: 12-03-2023 12-16-2023 Episodic Residual codes; unclassified (1 source) Cognitive perceptual pattern; Translations: [Unspecified symptoms and signs involving general sensations and perceptions] Onset: 12-02-2023 12-02-2023 Episodic Screening and history of mental health and substance abuse codes (4 sources) Ex-smoker; Translations: [Personal history of tobacco use] Episodic Comment on above: Quit 1993; Skull and face fractures (1 source) Closed fracture of nasal bones; Translations: [Fracture of nasal bones, initial encounter for closed fracture] 12-25-2021 Episodic Spondylosis; intervertebral disc disorders; other back problems (2 sources) Lumbosacral spondylosis without myelopathy; Translations: [Spondylosis without myelopathy or radiculopathy, lumbosacral region] Onset: 07-05-2018 03-24-2019 Chronic Spondylosis; intervertebral disc disorders; other back problems (3 sources) Disorder of sacrum; Translations: [Sacrococcygeal disorders, not elsewhere classified] Onset: 05-31-2019 01-15-2021 Episodic Superficial injury; contusion (3 sources) Contusion of left hand, initial encounter; Translations: [Contusion of left knee, initial encounter] Onset: 12-29-2022 12-25-2021 Episodic Syncope (2 sources) Near syncope; Translations: [Syncope and collapse] 04-05-2019 Episodic Unclassified (2 sources) Oth symptoms and signs involving the circ and resp systems / R09.89(ICD-9) Onset: 07-22-2017 Unclassified (1 source) Pure hypercholesterolemia, unspecified / E78.00(ICD-9) Onset: 07-22-2017 Unclassified (1 source) Personal history of nicotine dependence / Z87.891(ICD-9) Onset: 07-22-2017 Unclassified (1 source) Athscl heart disease of ho-chunk coronary artery w/o ang pctrs / I25.10(ICD-9) Onset: 07-22-2017 Unclassified (1 source) Old myocardial infarction / I25.2(ICD-9) Onset: 07-22-2017 Unclassified (1 source) Overweight / E66.3(ICD-9) Onset: 07-22-2017 Viral infection (2 sources) COVID-19; Translations: [Pneumonia due to COVID-19 virus] 10-21-2021 Episodic Past or Other Problems Problem Classification Problem Date Documented Da te Episodic/Chronic Deficiency and other anemia (1 source) Iron deficiency anemia; Translations: [Iron deficiency anemia, unspecified] Episodic Other circulatory disease (1 source) Other specified symptoms and signs involving the circulatory and respiratory systems; Translations: [Oth symptoms and signs involving the circ and resp systems] Onset: 07-22-2017 Episodic Other gastrointestinal disorders (1 source) Occult blood in stools; Translations: [Other fecal abnormalities] Episodic Viral infection (1 source) COVID-19 Onset: 10-12-2021 Resolved: 10-12-2021 Results Test Name Value Interpretation Reference Range Facility Activated partial thrombopla stin time (aPTT) in platelet poor plasma by coagulation aOrdered By: Mary Espana on 01-06-2024 aPTT Coag (PPP) [Time] 24.6 s 25.1-36.5 [facility] Comment on above: A hematocrit value g reater than 55% may lead to inaccurate results in coagulation testing. Patients having hematocrit values >55% require a special collection tube for coagulation studies. Please contact the laboratory at [phone] guided bone marrow bx/asp iron 01-06-2024 CT guided bone marrow bx/aspir [facility] [place] [address] [place] [address] CT Scan Report Signed Patient: Kusum Huerta MR#: [id number] [birth year] : 1950 Acct:[id number] Age/Sex: 73 / F ADM Date: 01/06/24 Loc: CT Room: Type: [facility] Attending Dr: Mary Espana MD Copies to: Mary Espana MD Ordering Provider: Mary Espana MD Date of Service: 01/06/24 CT/CT guided bone marrow bx/aspir: ANEMIA CT guided bone marrow bx/aspir 01/06/2024 11:24 AM SIGNS AND SYMPTOMS: Lower INFORMED CONSENT: Reason for procedure was discussed with the patient. The procedure expectations risks benefits options and alternatives were discussed. All the questions were answered. The patient understood the results cannot be guaranteed. The procedure is indicated and risks were acceptable. Consent was obtained. PROCEDURE: The right posterior iliac spine was visualized using CT. The skin was marked over this location. The skin was prepped and draped in a sterile manner. 8 mL of lidocaine 2% without epinephrine were used for local anesthesia. Under CT visualization a 9 gauge arrow on control drill assisted core biopsy needle was introduced into the posterior iliac spine. A total of 12 mL of bone marrow aspirate was obtained. A 2.5 cm 9 gauge core sample was obtained. The needle was removed and hemostasis was gained using manual pressure. A bandage was placed over the puncture site. The patient tolerated the procedure well. No immediate complications were detected. CT/CT guided bone marrow bx/aspir IMPRESSION: Successful CT-guided bone marrow aspiration and core needle biopsy, as above. Impression dictated by: Yaw Deluca M.D.01/06/2024 2:06 PM Dictation Location: [place] [address] Transcribed By: CHELE 01/06/24 140 Dictated By: Yaw Deluca II, MD 01/06/24 140 Signed By: 01/06/24 140 Normal [facility] Coagulation Profileon 2023 aPTT Coag (Bld) [Time] 24.6 s Low 25.1-36.5 [facility] Comment on above: Order Comment: STAT FOR BX Result Comment: A he matocrit value greater than 55% may lead to inaccurate results in coagulation testing. Patients having hematocrit values >55% require a special collection tube for coagulation studies. Please contact the laboratory at [phone] for redraw instructions. PERFORMED BY: [place] [id number] PATHOLOGIST [employer]SEMBLER CUCA VOGT M.D. Performed By: #### C BC, PLT, PP #### [address] INR Coag (PPP) [Relative time] 0.9 {INR} Normal [facility] Comment on above: Order Comment: STAT FOR BX Result Comment: INR Therapeutic Range A) Pre- [...] valves: 3 - 4.5 Performed By: #### C BC, PLT, PP #### [address] PT Coag (PPP) [Time] 10.4 s Normal 9.0-12.9 [facility] Comment on above: Order Comment: STAT FOR BX Result Comment: A he matocrit value greater than 55% may lead to inaccurate results in coagulation testing. Patients having hematocrit values >55% require a special collection tube for coagulation studies. Please contact the laboratory at [phone] for redraw instructions. Performed By: #### C BC, PLT, PP #### [address] Complete Blood Count Auto Di ffon 01-06-2024 Basophils (Bld) [#/Vol] 0.0 10*3/uL Normal 0.0-0.2 [facility] Comment on above: Order Comment: STAT FOR BX Result Comment: PERF ORMED BY: [place] [address] PATHOLOGIST [employer]SEM[employer] CUCA VOGT M.D. Performed By: #### C BC, PLT, PP #### [address] Basophils/100 WBC (Bld) 0.1 % Normal . [facility] Comment on above: Order Comment: STAT FOR BX Performed By: #### C BC, PLT, PP #### [address] Eosinophils (Bld) [#/Vol] 0.0 10*3/uL Normal 0.0-0.45 [facility] Comment on above: Order Comment: STAT FOR BX Performed By: #### C BC, PLT, PP #### [address] Eosinophils/100 WBC (Bld) 0.4 % Normal . [facility] Comment on above: Order Comment: STAT FOR BX Performed By: #### C BC, PLT, PP #### [address] [address] [place] Erythrocyte distribution width (RBC) [Ratio] 17.3 % High 11.9-15.3 [facility] Comment on above: Order Comment: STAT FOR BX Performed By: #### C BC, PLT, PP #### [address] Hematocrit (Bld) [Volume fraction] 33.3 % Low 34.0-46.4 [facility] Comment on above: Order Comment: STAT FOR BX Performed By: #### C BC, PLT, PP #### [address] Hemoglobin (Bld) [Mass/Vol] 10.4 g/dL Low 11.8-15.4 [facility] Comment on above: Order Comment: STAT FOR BX Performed By: #### C BC, PLT, PP #### [address] Lymphocytes (Bld) [#/Vol] 0.7 10*3/uL Low 1.00-4.8 [facility] Comment on above: Order Comment: STAT FOR BX Performed By: #### C BC, PLT, PP #### [address] Lymphocytes/100 WBC (Bld) 10.7 % Normal . [facility] Comment on above: Order Comment: STAT FOR BX Performed By: #### C BC, PLT, PP #### [address] MCH (RBC) [Entitic mass] 26.6 pg Normal 24.7-34.3 [facility] Comment on above: Order Comment: STAT FOR BX Performed By: #### C BC, PLT, PP #### [address] MCV (RBC) [Entitic vol] 85.0 fL Normal 80-100 [facility] Comment on above: Order Comment: STAT FOR BX Performed By: #### C BC, PLT, PP #### [address] Mean Corpuscular HGB Conc 31.3 g/dL Low 32.0-35.0 [facility] Comment on above: Order Comment: STAT FOR BX Performed By: #### C BC, PLT, PP #### [facility] [address] Monocytes (Bld) [#/Vol] 0.7 10*3/uL Normal 0.0-0.8 [facility] Comment on above: Order Comment: STAT FOR BX Performed By: #### C BC, PLT, PP #### [facility] [address] [place] [address] [place] Monocytes/100 WBC (Bld) 9.4 % Normal . [facility] Comment on above: Order Comment: STAT FOR BX Performed By: #### C BC, PLT, PP #### [address] Neutrophils (Bld) [#/Vol] 5.5 10*3/uL Normal 1.8-7.7 [facility] Comment on above: Order Comment: STAT FOR BX Performed By: #### C BC, PLT, PP #### [facility] [address] Neutrophils/100 WBC (Bld) 79.4 % Normal . [facility] Comment on above: Order Comment: STAT FOR BX Performed By: #### C BC, PLT, PP #### [facility] [address] [place] [address] [place] NRBC% 0.1 /100{WBC} Normal 0-0.5 [facility] Comment on above: Order Comment: STAT FOR BX Performed By: #### C BC, PLT, PP #### [facility] [address] [place] [address] [place] Platelet mean volume (Bld) [Entitic vol] 7.7 fL Normal 6.3-10.7 [facility] Comment on above: Order Comment: STAT FOR BX Performed By: #### C BC, PLT, PP #### [facility] [address] [place] [address] [place] RBC (Bld) [#/Vol] 3.92 10*6/uL Normal 3.60-5.00 [facility] Comment on above: Order Comment: STAT FOR BX Performed By: #### C BC, PLT, PP #### [facility] [address] WBC (Bld) [#/Vol] 6.9 10*3/uL Normal 3.8-11.6 [facility] Comment on above: Order Comment: STAT FOR BX Performed By: #### C BC, PLT, PP #### [address] INR in Platelet poor plasma by Coagulation assayOrdered By: Mary Espana on 01-06-2024 INR Coag (PPP) [Relative time] 0.9 {INR} [facility] Comment on above: INR Therapeutic Rang e A) Pre- and Peroperative OAT started two weeks before surgery. NOT HIP SURGERY: 1.5 - 2.5 HIP SURGERY: 2 - 3B) Primary and secondary prevention of venous THROMBOSIS: 2 - 3C) Active venous thrombosis, pulmonary embolismand prevention of recurrent venous thrombosis: 2 - 3D) Prevention of arterial thromboembolismincluding patients with mechanical heart valves: 3 - 4.5 Platelet Counton 01-06-2024 Platelets (Bld) [#/Vol] 136 10*3/uL Low 150-450 [facility] Comment on above: Order Comment: STAT FOR BX Result Comment: PERF ORMED BY: [place] [address] PATHOLOGIST [employer]SEM[employer] CUCA VOGT M.D. Performed By: #### C BC, PLT, PP #### [address] Platelets Auto (Bld) [#/Vol] Ordered By: Mary Espana on 01-06-2024 Platelets (Bld) [#/Vol] 136 10*3/uL 150-450 [facility] Prothrombin time (PT)Ordered By: Mary Espana on 01-06-2024 PT Coag (PPP) [Time] 10.4 s 9.0-12.9 [facility] Comment on above: A hematocrit value g reater than 55% may lead to inaccurate results in coagulation testing. Patients having hematocrit values >55% require a special collection tube for coagulation studies. Please contact the laboratory at [phone] for redraw instructions. 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 Vitals Vital Signs Recorded: [id number] 11:08AM Heart Rate70, L Radial [id number], LUE, Sitting Xmqeuodpt74, LUE, Sitting Height5 ft 3 in Height [...] eye . (more content not included)... Normal [employer] XR KNEE LT 4V or >on 023 [...] by: CHARLEY LUCAS Date: 2022-12-27 15:51 Normal [facility] XR RIBS LT PA Waqar [...] calcified granuloma in the right lung base. Jewett screws noted in the right humeral head. IMPRESSION: 1. No acute rib fracture identified. 2. No acute cardiopulmonary process. Electronically authenticated by: MARLON METCALF Date: 2022-12-27 15:50 Normal [facility] Tobacco Screening.on 022 Adult depression screening assessment No -[facility] [employer] 250 DO Work Phone: Fall risk assessment a) No falls within the last year [facility] [employer] 250 DO Work Phone: Tobacco use status [facility] b) No -[facility] 250 DO Work Phone: COVID Quick Testingon 2020 Result Positive [employer] Other Automated blood platelet cou nt (count/volume)on 03-04-2021 Platelets (Bld) [#/Vol] 249 10*3/uL 150-450 [facility] Automated blood platelet oracio n volume measurementon 03-04-2021 Platelet mean volume (Bld) [Entitic vol] 8.2 fL 6.3-10.7 [facility] Automated erythrocyte distri bution width ratioon 03-04-2021 Erythrocyte distribution width (RBC) [Ratio] 17.4 % 11.9-15.3 [facility] Automated erythrocyte mean c orpuscular hemoglobin (mass per erythrocyte)on 03-04-2021 MCH (RBC) [Entitic mass] 27.2 pg 24.7-34.3 [facility] Automated erythrocyte mean c orpuscular hemoglobin concentration measurement (mass/volon 03-04-2021 MCHC (RBC) [Mass/Vol] 32.7 g/dL 32.0-35.0 [facility] Automated erythrocyte mean c orpuscular volumeon 03-04-2021 MCV (RBC) [Entitic vol] 83.2 fL 80-100 [facility] Blood erythrocytes automated count (number/volume)on 03-04-2021 RBC (Bld) [#/Vol] 3.83 10*6/uL 3.60-5.00 [facility] Blood hemoglobin measurement (mass/volume)on 03-04-2021 Hemoglobin (Bld) [Mass/Vol] 10.4 g/dL 11.8-15.4 [facility] Blood leukocytes automated c ount (number/volume)on 03-04-2021 WBC (Bld) [#/Vol] 9.9 10*3/uL 3.8-11.6 [facility] Body fluid albumin measureme nt (mass/volume)on 03-04-2021 Albumin (Body fld) [Mass/Vol] 3.6 g/dL 3.2-5.5 [facility] Estimated glomerular filtrat ion rate (GFR) non- Americanon 03-04-2021 GFR/1.73 sq M predicted among non-blacks MDRD (S/P/Bld) [Vol rate/Area] 27 mL/Min [facility] Hematocrit [Volume Fraction] of Blood by Automated counton 03-04-2021 Hematocrit (Bld) [Volume fraction] 31.9 % 34.0-46.4 [facility] Otheron 03-04-2021 GFR/1.73 sq M.predicted MDRD (S/P/Bld) [Vol rate/Area] 33 mL/Min [facility] Comment on above: GFR estimated refere nce range: According to KDOQI guidelines, <60 ml/min/1.73m2 is sufficient to diagnose a patient with chronic kidney disease. Pharmacy Creatinine Clearance (Chem N/A [facility] Protein [Mass/volume] in Ser um or Plasmaon 03-04-2021 Protein [Mass/Vol] 6.6 g/dL 6.1-7.9 [facility] Serum globulin measurement b y calculation (mass/volume)on 03-04-2021 Globulin (S) [Mass/Vol] 3.0 g/dL [facility] Serum or plasma alanine fleming otransferase measurement without P-5'-P (enzymatic activion 03-04-2021 ALT No additional P-5'-P [Catalytic activity/Vol] 12 U/L 10-60 [facility] Serum or plasma albumin/glob ulin mass ratioon 03-04-2021 Albumin/Globulin [Mass ratio] 1.2 {ratio} [facility] Serum or plasma alkaline greyson sphatase measurement (enzymatic activity/volume)on 03-04-2021 ALP [Catalytic activity/Vol] 155 U/L 32-92 [facility] Serum or plasma aspartate am inotransferase measurement (enzymatic activity/volume)on 03-04-2021 AST [Catalytic activity/Vol] 12 U/L 10-42 [facility] Serum or plasma calcium terence urement (mass/volume)on 03-04-2021 Calcium [Mass/Vol] 8.8 mg/dL 8.2-10.2 [facility] Serum or plasma chloride oracio surement (moles/volume)on 03-04-2021 Chloride [Moles/Vol] 104 mmol/L 95-114 [facility] Serum or plasma creatinine m easurement with calculation of estimated glomerular filtron 03-04-2021 Creatinine [Mass/Vol] 1.82 mg/dL 0.44-1.03 [facility] Serum or plasma glucose terence urement (mass/volume)on 03-04-2021 Glucose [Mass/Vol] 109 mg/dL 70-100 [facility] Comment on above: ADA recommended refe rence rangeRandom Glucose Reference Range is dependent on time and content of last meal. Glucose of more than 200 mg/dL in a nonstressed, ambulatory subject supports the diagnosis of Diabetes Mellitus. Serum or plasma potassium me asurement (moles/volume)on 03-04-2021 Potassium [Moles/Vol] 5.6 mmol/L 3.5-5.1 [facility] Serum or plasma sodium measu rement (moles/volume)on 03-04-2021 Sodium [Moles/Vol] 135 mmol/L 136-146 [facility] Serum or plasma total biliru bin measurement (mass/volume)on 03-04-2021 Bilirubin [Mass/Vol] 1.0 mg/dL 0.3-1.2 [facility] Serum or plasma total carbon dioxide measurement (moles/volume)on 03-04-2021 CO2 [Moles/Vol] 23.9 mmol/L 22.0-30.0 [facility] Serum or plasma urea nitroge n measurement (mass/volume)on 03-04-2021 Urea nitrogen [Mass/Vol] 37 mg/dL 9- [facility] Vital Signs Date Time Vital Sign Value Performing Clinician Facility 01-06-2024 11:41-0500 Diastolic blood pressure 73 mm[Hg] MD Shaikh Serna Work Phone: [facility] 01-06-2024 11:41-0500 Heart rate 92 /min MD Shaikh Serna Work Phone: [facility] 01-06-2024 11:41-0500 Respiratory rate 16 /min MD Shaikh Serna Work Phone: [facility] 01-06-2024 11:41-0500 SaO2% (BldA) [Mass fraction] 97 % MD Shaikh Serna Work Phone: [facility] 01-06-2024 11:41-0500 Systolic blood pressure 152 mm[Hg] MD Shaikh Serna Work Phone: [facility] 01-06-2024 10:00-0500 Body height 157.48 cm MD Shaikh Serna Work Phone: [facility] 01-06-2024 10:00-0500 Body weight 86.18 kg MD Shaikh Serna Work Phone: [facility] 08-20-2023 11:08-0400 Body height 160.02 cm James Pereira Work Phone: [facility] [employer] 600 DO Work Phone: 08-20-2023 11:08-0400 Body mass index (BMI) [Ratio] Medical Reason Not Done James Pereira Work Phone: [facility] [employer] 600 DO Work Phone: 08-20-2023 11:08-0400 Diastolic blood pressure 52 mm[Hg] James Pereira Work Phone: [facility] [employer] 600 DO Work Phone: 09-28-2023 11:08-0400 Heart rate 70 /min James Jasso Naylor Work Phone: [facility] 600 DO Work Phone: 08-20-2023 11:08-0400 Systolic blood pressure 110 mm[Hg] James Jasso Naylor Work Phone: [facility] 600 DO Work Phone: 04-30-2022 10:57-0400 Body height 160.02 cm James Jasso Naylor Work Phone: [facility] 250 DO Work Phone: 04-30-2022 10:57-0400 Body mass index (BMI) [Ratio] 36.67 kg/m2 James Jasso Naylor Work Phone: [facility] 250 DO Work Phone: 04-30-2022 10:57-0400 Body surface area Derived from formula 1.96 m2 James Jasso Naylor Work Phone: [facility] 250 DO Work Phone: 04-30-2022 10:57-0400 Body weight 93.9 kg James Pereira Work Phone: [facility] 250 DO Work Phone: 04-30-2022 10:57-0400 Diastolic blood pressure 50 mm[Hg] James Jasso Naylor Work Phone: [facility] 250 DO Work Phone: 04-30-2022 10:57-0400 Heart rate 64 /min James Jasso Naylor Work Phone: [facility] 250 DO Work Phone: 04-30-2022 10:57-0400 Systolic blood pressure 120 mm[Hg] James Jasso Naylor Work Phone: [facility] 250 DO Work Phone: 04-16-2022 00:00-0400 60 1 Ingrid Contreras DO Work Phone: [facility] 250 DO Work Phone: Comment on above: [id number] 10-12-2021 14:30-0500 Body height Brian Sawyer Other [employer] Other 10-12-2021 14:30-0500 Body mass index (BMI) [Ratio] 36.61 kg/m2 Brian Sawyer Other [employer] Other 10-12-2021 14:30-0500 Body temperature 98.7 [degF] Brian Sawyer Other [employer] Other 10-12-2021 14:30-0500 Body weight 99.79 kg Brian Sawyer Other [employer] Other 10-12-2021 14:30-0500 Diastolic blood pressure 58 mm[Hg] Brian Sawyer Other [employer] Other 10-12-2021 14:30-0500 SaO2% (BldA) [Mass fraction] 92 % Brian Sawyer Other [employer] Other 10-12-2021 14:30-0500 Systolic blood pressure 94 mm[Hg] Brian Sawyer Other [employer] Other Encounters Encounter Date Encounter Type Care Provider Facility Start: 01-14-2024 End: 01-14-2024 ambulatory SHAIKH DAPHNE Not Available Start: 01-06-2024 End: 01-06-2024 ambulatory Shaikh Daphne Facility:[facility] Start: 01-06-2024 End: 01-06-2024 Admission to same day surgery center MD Shaikh Serna Work Phone: [facility] [place] Work Phone: Start: 01-06-2024 End: 01-06-2024 ambulatory MD Shaikh Serna Work Phone: [facility] Work Phone: Start: 12-29-2023 Telephone encounter Trent Ramirez MD Work Phone: [facility] Start: 12-17-2023 End: 12-17-2023 ambulatory SHAIKH DAPHNE Not Available Start: 12-16-2023 End: 12-16-2023 ambulatory TRENT RAMIREZ Not Available Start: 12-02-2023 End: 12-02-2023 ambulatory SHAIKH DAPHNE Not Available Start: 11-25-2023 Orders Only Not In System Ref Prov [facility] Start: 11-19-2023 End: 11-24-2023 Emergency department patient visit JAMES Louisa [facility] Start: 11-12-2023 End: 11-12-2023 ambulatory ANTONY GRANT Not Available Start: 08-20-2023 Office outpatient vi sit 25 minutes James Pereira [facility] Work Phone: Start: 08-20-[address] [facility] Start: 12-27-2022 End: 12-27-2022 ambulatory LARA EDOUARD Facility:[facility] Start: 06-17-2022 Patient encounter procedure James Pereira Work Phone: [facility] 250 DO Work Phone: Start: 04-30-2022 Office outpatient vi sit 25 minutes James Pereira Work Phone: [facility] 250 DO Work Phone: Start: 04-22-2022 Patient encounter procedure Ingrid Contreras DO Work Phone: -[facility] 250 DO Work Phone: Start: 10-12-2021 End: 10-12-2021 ambulatory Brian Sawyer Other [facility] [employer] Other Start: 10-12-2021 Office outpatient vi sit 15 minutes Brian Sawyer [facility] Start: 03-04-2021 End: 03-04-2021 Patient encounter procedure James Naylor -[facility] [place] Start: 07-22-2017 Ambulatory INGRID IBARRA Facil [id number] Procedures Date Procedure Procedure Detail Performing Clinician Start: 11-23-2023 MULTIPLE LABS Not In Sy stem Ref Prov Start: 11-23-1979 Total colonoscopy Willi am Ben DO Work Phone: Appendectomy [place] E Bristo l Work Phone: Arthroplasty of knee James Pereira Work Phone: Cardiac catheterization Will rey Ben DO Work Phone: Cholecystectomy James Jasso Any stol Work Phone: Hysterectomy [place] E Bristo [place] Work Phone: Removal of thrombus [place] E Kelli Work Phone: Surgical procedure o n eye proper James E Naylor Work Phone: Plan of Treatment Date Care Activity Detail Author Start: 12-25-2031 DTaP,Tdap and Td Vaccines (2 - Td or Tdap) DTaP,Tdap and Td Vaccines (2 - Td or Tdap) [facility] [employer] Start: 01-21-2024 End: 01-21-2024 Patient encounter procedure 01/21/2024 1:50 PM EST Procedure Visit [facility] [address] [facility] [address] [place] [address] Antony Grant DPM [address] [facility] [address] [place] [address] [facility] Start: 01-20-2024 End: 01-20-2024 Patient encounter procedure 01/20/2024 9:30 AM EST Office Visit [facility] [address] [place] [address] Shaikh Serna MD [address] [place] [address] [facility] Start: 01-14-2024 End: 01-14-2024 Patient encounter procedure 01/14/2024 11:00 AM EST Procedure Visit [facility] [address] [place] [id number] [facility] Start: 01-06-2024 [facility] Start: 01-06-2024 [facility] Start: 01-06-2024 Bone marrow sampling [facility] Start: 07-24-2023 Influenza vaccination [facility] Start: 07-10-2022 FUV, Provider: Ingrid Ibarra, Status: Pen, Time: 10:50 AM FUV, Provider: Ingrid Ibarra, Status: Pen, Time: 10:50 AM [facility] Work Phone: Start: 04-30-2022 FUV, Provider: Cristal Grant, Status: Pen, Time: 10:30 AM FUV, Provider: Cristal Grant, Status: Pen, Time: 10:30 AM [facility] 250 DO Work Phone: Start: 01-15-2022 Adult BMI Screening Adult BMI Screening [facility] Start: 07-24-2018 Pneumococcal Vaccine: 65+ Years (2 - PCV) Pneumococcal Vaccine: 65+ Years (2 - PCV) [facility] Start: 2015 Fall Risk Screening Fall Risk Screening [facility] Start: 2000 Administration of varicella zoster vaccine Zoster (Shingles) Vaccine (1 of 2) [facility] Start: 04-15-1990 Screening for malignant neoplasm of breast Mammogram [facility] Start: 1962 Depression Screening Depression Screening [facility] Start: 1962 Tobacco Screening Tobacco Screening [facility] Start: 1950 Medicare Annual Wellness (AWV) Medicare Annual Wellness (AWV) [facility] Start: 1950 Screening for malignant neoplasm of colon [facility] Start: 1950 Medicare Annual Wellness Visit Medicare Annual Wellness Visit [facility] Basophils [#/volume] in Blood by Automated count [facility] Basophils/100 leukoc ytes in Blood by Automated count [facility] Eosinophils/100 leukocytes in Blood by Automated count [facility] Erythrocyte distribu tion width [Ratio] by Automated count [facility] Erythrocytes [#/volu me] in Blood [facility] Hematocrit [Volume Fraction] of Blood [facility] Hemoglobin [Mass/vol ume] in Blood [facility] Leukocytes [#/volume ] corrected for nucleated erythrocytes in Blood by Automated coun [facility] Leukocytes [#/volume ] in Blood [facility] Lymphocytes [#/volum e] in Blood by Automated count [facility] Lymphocytes/100 leukocytes in Blood by Automated count [facility] MCH [Entitic mass] b y Automated count [facility] MCHC [Mass/volume] b y Automated count [facility] MCV [Entitic volume] by Automated count [facility] Monocytes [#/volume] in Blood by Automated count [facility] Monocytes/100 leukoc ytes in Blood by Automated count [facility] Neutrophils [#/volum e] in Blood by Automated count [facility] Neutrophils/100 leukocytes in Blood by Automated count [facility] Nucleated erythrocyt es [Presence] in Blood by Automated count [facility] Patient Education [facility] Bone Marrow Aspiration or Biopsy [facility] Work Phone: Platelet mean volume [Entitic volume] in Blood by Automated count [facility] Immunizations Immunization Date Immunization Notes Care Provider Fa cility 12-25-2021 tetanus toxoid, redu zak diphtheria toxoid, and acellular pertussis vaccine, adsorbed James Pereira Work Phone: [facility] 09-11-2020 influenza virus vacc ine, unspecified formulation Jamesavril Pereira Work Phone: [facility] 250 DO Work Phone: 09-08-2020 Fluzone QIV High-Dos e 65YR+ [place] 09-08-2020 influenza virus vacc ine, unspecified formulation Not Ref Prov [facility] 10-14-2019 influenza, high dose seasonal, preservative-free James [place] 07-24-2017 pneumococcal polysaccharide vaccine, 23 valent James Jasso Naylor Work Phone: [facility] 250 DO Work Phone: 08-28-2015 influenza, high dose seasonal, preservative-free James Pereira Work Phone: [facility] 250 DO Work Phone: influenza virus vacc ine, unspecified formulation James Pereira Work Phone: [facility] 250 DO Work Phone: Comment on above: Aug 20122012 Payers Date Payer Category Payer Self-pay [id number] 2023 Medicare [id number] 2023 Private Health Insurance [id number] 1959 Private Health Insurance [id number] 1950 Unknown [id number] 1950 Unknown [id number] 1950 Unknown [id number] 1950 Unknown [id number] 1950 Unknown [id number] 1950 Unknown [id number] 1950 Unknown [id number] 1950 Unknown [id number] 1950 Unknown [id number] Medicare [id number] Private Health Insurance [id number] Private Health Insurance Aetna [facility] PFFS [id number] Unknown AETNA Unknown [id number] Social History Date Type Detail Facility Start: 10-02-2020 End: 04-16-2022 Tobacco smoking status INIS Ex-smoker (finding) [facility] Work Phone: Start: 1950 Sex Assigned At Female F [facility] Start: 01-15-2021 End: 12-17-2023 No illicit drug use No illicit drug use [place] [address] DO Work Phone: Comment on above: Quit 1993; 4 cups tea daily; Start: 01-15-2021 End: 12-17-2023 Sex Assigned At [employer] Other History of tobacco use Current smoker [facility] Start: 07-05-2018 End: 12-02-2023 Tobacco use and exposure Smokeless tobacco non-user [facility] Start: 01-15-2021 Alcohol intake Current non-dr strip deburrer of alcohol (finding) [facility] Housing Instability Unknown [facility] Start: 1950 End: 1950 Sex Assigned At Not on file [employer] [facility] Start: 12-02-2023 Tobacco smoking stat us INIS Never smoked tobacco [facility] History of tobacco use Passive smoker [facility] Start: 12-17-2023 Alcohol intake Lifetime non-d rony (finding) [facility] Start: 11-12-2023 Alcohol Comment caffeine intak e: 1-2 cups per day (pepsi, ice tea) [facility] Medical Equipment Procedure Code Equipment Code Equipment Original Text Equipment Identifier Dates FDA Start: 10-13-2019 [id number] FDA Start: 10-13-2019 [id number] FDA Start: 10-13-2019 CL CLOSURE DEVIC E ANGIOSEAL 6F FDA Start: 10-13-2019 Goals Date Patient Goal Desired Activity /State Clinical Notes 10-12-2021 to 12-30-2023 Telephone Encounter - Melissa Berger NP - 12/30/2023 1:50 PM ESTTelephone Encounter - Melissa Berger NP - 12/30/2023 1:50 PM EST Note Date & Type Note Facility 12-30-2023 Telephone encounter Note I called patient and let her know Dr. Ramirez sent in another round of steroids. I left message as no answer. [facility] Work Phone: 12-30-2023 Miscellaneous Notes I called patient and let her know Dr. Ramirez sent in another round of steroids. I left message as no answer. Called patient to reschedule EMG tomorrow due to no tech in office. Patient states that she has four days left of steroid and has no more refill. Wanted to let Dr. Ramirez know and wasn't sure if she needed another rx. Please advise. documented in this encounter [facility] 12-29-2023 Telephone encounter Note Called patient to reschedule EMG tomorrow due to no tech in office. Patient states that she has four days left of steroid and has no more refill. Wanted to let Dr. Ramirez know and wasn't sure if she needed another rx. Please advise. [facility] 12-27-2022 Note PROCEDURE: XR HAND L T [...] by: RODERICK ESTRELLA Date: 2022-12-27 15:58 [facility] 12-27-2022 Note PROCEDURE: XR HAND L T [...] by: RODERICK ESTRELLA Date: 2022-12-27 15:58 [facility] 10-12-2021 Evaluation note Encounter Date Diagnosis Assessment [...] Patient care instructions given in writting by [facility] Care At Home document. 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 documented in this encounter [facility] Healthcare[facility] noteNo assessment [facility] Work Phone: Hiscidd general Narrative - Reported* Type Description Date Medical History hypertension Medical History chronic kidney disease stage 3 Surgical History gall bladder Surgical History appendectomy Surgical History knee replacement, left Surgical History HEART CATH WITH STENT PLACEMENT X1 Hospitalization History see above Hospitalization History URINARY TRACT INFECTION 05/2020 Hospitalization History BLOOD PRESSURE ISSUES [employer] Other History of Present illness Narrative* The patient states she has been generally doing well since the last visit. Comorbid Illnesses: hypertension and hyperlipidemia. * Symptoms: denies chest pain at rest, resolved exertional chest pain, denies dyspnea, denies fatigue, stable exercise intolerance, denies palpitations, denies edema, denies orthopnea, denies dizzinessand denies orthostatic dizziness. * Associated symptoms: no syncope. * Her symptoms do not limit her activities. * Disease Monitoring: The patient has had a stable weight. * Medications: the patient is adherent with her medication regimen. She denies medication side effects. [place] [address] DO Work Phone: History of Present illness Narrative* Returns in follow-up of problems as noted. In the interim she is done well. A long detailed discussion ensued regarding antiplatelet therapy. It was Dr. Contreras's original recommendation that she be on Effient or Brilinta. She could not tolerate Brilinta and was unintentionally switch back to Plavix. Today we will switch to prasugrel as per his original recommendation * She is having some problems with low blood pressure and because of this adjustments in therapy willbe made with a reduction in antihypertensive therapy. Also some edema and because of this a small dose of Lasix is added. She was educated regarding symptoms to watch for and she will call if they blossom se but otherwise she will continue as before. Merits of diet and weight loss were again advocated. [facility] 600 DO Work Phone: InstructionsNot on filedocumented in this encounter [facility] Summary Purpose Family History No [...] cardiovascular disease: Mother, Father, Sister(V17.49, Z82.49) Status:Active Relationship Condition Age at Onset Recorded Date/T xiao Not Specified Heart disease Unknown Chronic obstructive pulmonary disease Unk nown Myocardial infarction Unknown father History of heart surgery Unknown Heart disease Unknown sister Myocardial infarction Unknown father Hypertension Unknown Unknown Diabetes mellitus Unknown family member Unknown Not Specified Hypertension Unknown natural son Hypertension Unknown sister Heart disease Unknown Advance Directives No Advanced Directives Records Found Advance Directive Response Recorded Date/ Time Advance Directives No April 22 8:16am Advance Directive Response Recorded Date/ Time Advance Directives No April 22 7:16am Chief Complaint and Reason for Visit Chief Complaint See order Chief Complaint Anemia Assessments No Assessments Information Available Chief Complaint * Seem to be doing good * KUSUM HUERTA is being seen for follow-up of a hospitalization for chest pain. * Patient was recently hospitalized at [facility]. The patient was seen in Cardiology consult with subsequent cardiovascular management by [facility]. Hospitalization records have been reviewed. * Reason for Cardiology Consultation: ACS * Consulting Channel Supervisor: Dr. Contreras * Cardiovascular testing: cardiac cath [...] section and content) DATE CREATED AUTHOR 05/19/2018 [facility] DATE CREATED AUTHOR AUTHOR'S ORGANIZ ATION 12/29/2022 [facility] DATE CREATED AUTHOR AUTHOR'S ORGANIZ ATION 08/28/2023 [employer] DATE CREATED AUTHOR AUTHOR'S ORGANIZ ATION 10/07/2023 [facility] DATE CREATED AUTHOR AUTHOR'S ORGANIZ ATION 11/24/2023 [facility] DATE CREATED AUTHOR AUTHOR'S ORGANIZ ATION 01/07/2024 [facility] DATE CREATED AUTHOR AUTHOR'S ORGANIZ ATION 01/22/2024 [facility] d[facility] Specialists EPIC REASON FOR VISIT (unrecogniz ed section and content) #13 NOT VACCINATED, NO POS C OVID EXP, COUGH, CONGESTION, FEVER Care Teams (unrecognized sec tion and content) Vascular Ultrasound Technologist Relationship Specialty Start Date End Date James Pereira DO [address] [place] [address] PCP - General 06/30/18 Vascular Ultrasound Technologist Relationship Specialty Start Date End Date Shaikh Serna MD [address] [place] [address] PCP - General Internal Medicine 12/17/23 Team Status: Active Member Role Status Dates Shaikh Daphne MD Primary Care Provider Active Team Status: Inactive Member Role Status Dates Mary Espana MD Attending Provider Active St art: January 06, 2024 End: January 06, 2024 Shaikh Daphne MD Primary Care Provider Active Start: January 06, 2024 End: January 06, 2024 Goals (unrecognized section and content) Goals may be documented in a n alternate section FOR RECORDS PERTAINING TO PATIENTS WHO ARE [...] BE BASED ON THE PRIMARY CLINICAL RECORDS. [facility] [employer] [facility]. provides no warranty or guarantee of the accuracy or completeness of information in this document.
--- NOTE | 2024-01-24 22:59 | ECG_ITS ---
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
--- NOTE | 2024-01-24 23:19 | ED_ITS ---
HPI - Weakness General Chief complaint: Weakness Stated complaint: Fall, Left side pain Time Seen by Provider: 01/24/24 22:45 Source: patient Mode of arrival: ambulance History of Present Illness HPI Narrative: This 73-year-old female with a history of chronic lower extremity weakness, peripheral neuropathy and A diagnosis of acute demyelinating polyneuropathy who currently lives at home with her family is brought emergency department by EMS from home. The patient states she was going to sit in her chair and slid out of her chair. She states that she was formally able to ambulate somewhat and transfer but over the course of the past several weeks her weakness has become more severe. She is planning to go to short-term rehab and [facility] tomorrow. She denies any neck pain. She has chronic low back pain. She has been on opiates in the past and in pain management is currently on Suboxone. The patient's appears somewhat confused and answers most of my questions with a question. She denies any loss of bowel or bladder control. She states she has been voiding normally. She has not had any vomiting or diarrhea. When I asked her why she thinks that EMS was called to bring her to the hospital when she has a room at rehab tomorrow she states she thinks they are trying to get rid of her. She states her [id number] was with her when she slipped while trying to get into the chair today and called EMS. The patient is able to wiggle her toes and move her feet, ankles and flex at the hip and knees.She denies any chest pain or shortness of breath. I reviewed her prior records and she was admitted recently for CHF and anemia. MD Complaint: Reports generalized weakness and difficulty walking Related Data Home Medications Medication Instructions Recorded Confirmed buprenorphine 8 mg-naloxone 2 mg 1.5 film sublingual Q24H 08/15/23 12/12/23 sublingual film metoprolol tartrate 25 mg tablet 25 mg PO Q12H 08/15/23 12/12/23 naloxone 4 mg/actuation nasal 1 spray intranasal Q3M PRN opioid 08/15/23 11/18/23 spray (Narcan) overdose valsartan 80 mg tablet 80 mg PO DAILY 08/15/23 12/12/23 amlodipine 5 mg tablet 5 mg PO DAILY 11/18/23 12/12/23 furosemide 20 mg tablet 20 mg PO DAILY 11/18/23 12/12/23 prasugrel 10 mg tablet 10 mg PO DAILY 11/18/23 12/12/23 albuterol sulfate 90 mcg/actuation inhalation 12/12/23 aerosol inhaler Previous Rx's Medication Instructions Recorded ferrous sulfate 325 mg (65 mg 325 mg PO DAILY 30 days #30 tabs 08/18/23 iron) tablet (Iron (ferrous sulfate)) spironolactone 25 mg tablet 25 mg PO QD 30 days #30 tabs 08/18/23 gabapentin 100 mg capsule 100 mg PO TID #90 caps 11/23/23 prednisone 10 mg tablets in a dose 10 mg PO DAILY #39 ea 11/23/23 pack cephalexin 500 mg capsule 500 mg PO BID 7 days #14 caps 12/12/23 methylprednisolone 4 mg tablets in 4 mg PO DAILY #21 ea 12/12/23 a dose pack (Medrol (David)) Allergies Allergy/AdvReac Type Severity Reaction Status Date / Time No Known Drug Allergies Allergy Verified 01/24/24 22:42 Review of Systems ROS Status of ROS 10 or more systems reviewed and unremark able except as noted in history and below [facility] Medical History (Updated 01/25/24 @ 06:31 by Melissa Parra MD) Lumbar degenerative disc disease ?M51.36 - Other intervertebral disc degeneration, lumbar region (ICD-10) Stage 3a chronic kidney disease (CKD) ?N18.31 - Chronic kidney disease, stage 3a (ICD-10) Opioid use disorder in remission ?F11.91 - Opioid use, unspecified, in remission (ICD-10) Acute on chronic diastolic heart failure ?I50.33 - Acute on chronic diastolic (congestive) heart failure (ICD-10) Hypoxia ?R09.02 - Hypoxemia (ICD-10) COPD (chronic obstructive pulmonary disease) ?J44.9 - Chronic obstructive pulmonary disease, unspecified (ICD-10) Iron deficiency anemia ?D50.9 - Iron deficiency anemia, unspecified (ICD-10) CAD (coronary atherosclerotic disease) ?I25.10 - Atherosclerotic heart disease of kaw coronary artery without angina pectoris (ICD-10) Hypertension ?I10 - Essential (primary) hypertension (ICD-10) Neuropathy ?G62.9 - Polyneuropathy, unspecified (ICD-10) Anemia requiring transfusions ?D64.9 - Anemia, unspecified (ICD-10) Acute on chronic congestive heart failure ?I50.9 - Heart failure, unspecified (ICD-10) CKD (chronic kidney disease) stage 3, GFR 30-59 ml/min ?N18.30 - Chronic kidney disease, stage 3 unspecified (ICD-10) Chronic respiratory failure with hypoxia ?J96.11 - Chronic respiratory failure with hypoxia (ICD-10) Melanoma ?C43.9 - Malignant melanoma of skin, unspecified (ICD-10) History of illicit drug use ?F19.91 - Other psychoactive substance use, unspecified, in remission (ICD- 10) Kidney disease ?N28.9 - Disorder of kidney and ureter, unspecified (ICD-10) CHF (congestive heart failure) ?I50.9 - Heart failure, unspecified (ICD-10) Heart attack ?I21.9 - Acute myocardial infarction, unspecified (ICD-10) Anemia ?D64.9 - Anemia, unspecified (ICD-10) Anemia ?D64.9 - Anemia, unspecified (ICD-10) CHF (congestive heart failure) ?I50.9 - Heart failure, unspecified (ICD-10) Surgical History H/O: hysterectomy ?Z90.710 - Acquired absence of both cervix and uterus (ICD-10) History of cholecystectomy ?Z90.49 - Acquired absence of other specified parts of digestive tract (ICD- 10) History of total left knee replacement ?Z96.652 - Presence of left artificial knee joint (ICD-10) Hx of appendectomy ?Z90.49 - Acquired absence of other specified parts of digestive tract (ICD- 10) History of heart artery stent ?Z95.5 - Presence of coronary angioplasty implant and graft (ICD-10) Family History Father Family history of CHF (congestive heart failure) Family history of diabetes mellitus Family history of hypertension Sister Family history of myocardial infarction Family history of hypertension Mother Family history of COPD (chronic obstructive pulmonary disease) Family history of hypertension Daughter Family history of diabetes mellitus Social History Within the past year, how often did you have a drink containing alcohol: never Within the past year, how many standard drinks containing alcohol did you have on a typical day: 1 or 2 Within the past year, how often did you have six or more drinks on one occasion: never Total score: 0 Score interpretation: A score less than 3 is consistent with normal alcohol consumption. Smoking status: Former smoker Non-prescribed substance use: former substance user, amphetamines/methamphetamines and opiods/painkillers Non-prescribed substance use details: states has been clean for 6 months Previous occupational history: Retired Known occupational exposures/hazards: No Highest level of school completed/degree received: high school graduate Are you now , , , , never or living with a partner: In a typical week, how many times do you talk on the telephone with family, frie nds, or neighbors: 3 or more times per week How often do you get together with friends or relatives: 3 or more times per week How often do you attend religion or gnosticist services: never Do you belong to any clubs or organizations such as religion groups unions, fraternal or athletic groups, or school groups: no Total score: 1 Score interpretation: A score of less than or equal to 1 indicates the most socially isolated. Little interest or pleasure in doing things: not at all Feeling down, depressed, or hopeless: not at all Feel stressed/tense/nervous/anxious/difficulty sleeping: not at all Gender Identity: female Exam Narrative Exam Narrative: Nurses note and vital signs reviewed and patient is not hypoxic. General: The patient appears well and in no apparent distress. Patient is resting comfortably on cart. No distress noted. She seems somewhat confused. Skin: Warm, dry, no pallor noted. There is no rash noted. Head: Normocephalic, atraumatic Eye: Normal conjunctiva, no drainage, EOMI. PERRL Ears, Nose, Mouth, and Throat: oral mucosa is moist. Nares patent. Mouth without vesicles. Cardiovascular: Regular Rate and Rhythm S1 S2, no murmurs, rubs or gallops Respiratory: Patient is in no distress, no accessory muscle use, lungs are clear to auscultation, no wheezing, rales or rhonchi Back: non-tender, no CVA tenderness bilaterally to percussion. GI: Normal bowel sounds, no tenderness to palpation, no masses appreciated. No rebound, guarding, or rigidity noted. Musculoskeletal: The patient has no evidence of calf tenderness, no pitting edema, symmetrical pulses noted bilaterally, there is tenderness to palpation of her lumbar area without skin rash, midline bony vertebral tenderness or step-off Neurological: A&O x4, normal speech, moving all toes, lower extremity strength and sensation is intact, no saddle anesthesia, push/pulls of feet are normal and equal Psychiatric: Cooperative, confused at times Constitutional Vital Signs, click to edit/add: Last Vital Signs Temp 98.6 F 01/24/24 22:39 Pulse 95 H 01/25/24 04:50 Resp 20 01/25/24 04:50 BP 122/58 01/25/24 04:30 Pulse Ox 94 L 01/25/24 03:40 O2 Del Method Room Air 01/24/24 22:39 Course Vital Signs Vital signs: Vital Signs Blood Pressure 141/82 01/24/24 22:38 Temperature 98.6 F 01/24/24 22:39 Pulse Rate 95 H 01/25/24 04:50 Respiratory Rate 20 01/25/24 04:50 Blood Pressure 122/58 01/25/24 04:30 Pulse Oximetry 94 L 01/25/24 03:40 Oxygen Delivery Method Room Air 01/24/24 22:39 MDM - Weakness MDM Narrative Medical decision making narrative: This 73-year-old female with a history of chronic back pain and lower extremity weakness is brought to the emergency department by EMS from home after she slid out of a chair she was attempting to sit down and slid from the chair to the floor. She is currently living with family members. She is supposed to be entering short-term rehabilitation at a local extended care facility tomorrow morning. Upon arrival she was noted to be tachycardic. There is no sign of any injury related to her fall. She does have a history of anemia and congestive heart failure. She denies any chest pain at this time. An EKG done upon arrival was sinus tachycardia at 106 bpm. She currently takes baby aspirin. She states she was taken off of her other medications likely related to anemia in the recent past. She was medicated with IM Toradol. An IV was unable to be obtained immediately. She denies that she has been vomiting or having any diarrhea. She was straight cath'd for a urine due to her inability to use the restroom to the generalized weakness. Labs are reviewed. She is a white count of 5.2 and hemoglobin of 10.2. She has a BUN of 45 and creatinine of 1.85 which is consistent with her chronic renal insufficiency. Troponin is normal. Remainder of her electrolytes are normal. A d dimer was added on as she is persistently tachycardic without explanation and she is mostly immobile. The d dimer is elevated at 3.37. An IV was placed after several unsuccessful attempts and she was given IVF and repeat BMP was ordered. She is still outside of the protocol limits for a CTA of her chest and will be given an additional bolus of normal sa line. She has persistence of her left sided low back pain and a non contrast CT scan of the lumbar spine was ordered. A respiratory panel was ordered and she is positive for Rhino/enterovirus. Since a CTA of her chest is unable to be performed at this time, I ordered a 40 mg SUbQ dose of Lovenox. She stated to the nursing staff that her family is managing her medications and she does not think she has been getting her prescribed Suboxone. She thinks that maybe she was given it but forgot . Her urine did test positive for Suboxone. CT of the lumbar spine was ordered due to her ongoing complaint of left sided low back pain. I shows multi-level degenerative changes but no acute fx or subluxation. She has remained stable in the ER while awaiting further testing. Repeat labs were unable to be drawn this morning due to difficult access. The case was discussed with Dr Guo, Hospitalist service and she is accepted for admission, observation status Medical Records Attestation: I reviewed the patient's medical records. Medical records narrative: The [address] [address] XRay Report Signed Patient: BELLE JEONG MR#: [id number] : 1950 Acct:[id number] Age/Sex: 73 / F ADM Date: 01/24/24 Loc: ER Attending Dr: Ordering Physician: Melissa Parra Date of Service: 01/24/24 Procedure(s): XR chest 1V Accession Number(s): [id number] cc: Shaikh Alea Serna; Melissa Parra~ The [address] [id number] Patient Name: BELLE JEONG MRN: [id number] date: 1950 Sex: F Assigned Patient Location: ER Current Patient Location: ER Accession/Order Number: [id number] Exam Date: 01/24/2024 23:59 Report Date: 01/25/2024 00:54 At the request of: MARKER Procedure: XR chest 1V XR chest 1V 01/24/2024 10:59 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 There is no edema. The lungs are clear without infiltrate, effusion, or pneumothorax. The bones are intact. XR/XR chest 1V Impression: Cardiomegaly without [place] [address] CT Scan Report Signed Patient: BELLE JEONG MR#: [id number] : 1950 Acct:[id number] Age/Sex: 73 / F ADM Date: 01/24/24 Loc: ER Attending Dr: Ordering Physician: Melissa Parra Date of Service: 01/25/24 Procedure(s): CT lumbar spine wo con Accession Number(s): [id number] cc: Shaikh Alea Serna~ The [place] [address] Patient Name: BELLE JEONG MRN: [id number] date: 1950 Sex: F Assigned Patient Location: ER Current Patient Location: ER Accession/Order Number: [id number] Exam Date: 01/25/2024 03:20 Report Date: 01/25/2024 03:53 At the request of: MARKER Procedure: CT lumbar spine wo con CT lumbar spine wo con INDICATION: 73 years old; Female.fall TECHNIQUE: CT of the lumbar spine.Contrast None. Sagittal and coronal images as well as axial reconstructions through the disc spaces were produced.. Ionizing radiation dose reduced via iterative reconstruction/FBP blend and body size kV/mA adjustment. COMPARISON: Lumbar CT dated 11/18/2023. FINDINGS: POSTOPERATIVE CHANGES: None ALIGNMENT AND LORDOSIS: Normal lumbar lordosis. VERTEBRAE: No acute fractures appreciated. There is stable appearance of mild wedging of the anterior aspect of the T12 vertebral body which is unchanged from the prior study. There are multiple hemangiomas noted with thickened trabecular pattern and central areas of hypodensity consistent with fat. These are present in L1, L2, and L5. These remain unchanged as compared to the prior study. No bony displacement is seen. No spondylolysis or spondylolisthesis is present. The transverse processes are intact. SI joints are intact. 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 This is unchanged from prior. No lytic or blastic lesions. DISC LEVELS: L1-L2: No disc herniation. No spinal canal or foraminal narrowing. Anterior osteophyte formation. L2-L3: No disc herniation. No spinal canal or foraminal narrowing. Anterior osteophyte formation. L3-L4: Facet degeneration with bony overgrowth and ligamentous thickening. Anterior osteophyte formation. Mild central canal stenosis. Neural foramina lateral recesses are patent. L4-L5: Facet degeneration with ligamentous thickening. Mild central canal stenosis. Osteophytes and the facets project into the left neural foramen with moderate left-sided foraminal stenosis. There is compression of the exiting left L4 nerve root. L5-S1: Vacuum disc degeneration. Disc space narrowing posteriorly. No focal disc herniation or bulging. There is facet degeneration with bony overgrowth. Severe bilateral foraminal stenosis is present. There is compression of the exiting L5 nerve roots. LOWER THORACIC DISCS: At T12-L1 and T11-T12, disc space narrowing is seen with anterior osteophyte formation. No focal disc herniation is seen. The central canal and neural foramina are patent. The study does not visualize the distal cord or conus. OTHER: Posterior paraspinal muscle atrophy is present. Psoas muscle atrophy is present. Vascular calcifications are seen. The renal cortex appears atrophic. There is bladder distention partially visualized. CT/CT lumbar spine wo con IMPRESSION: 1. No acute fracture or vertebral body collapse. 2. Multilevel degenerative changes. Please see the detailed discussion of the individual levels in the body of this report. 3. Partially visualized distended bladder. 4. Vascular calcifications. 2. No fracture or bony displacement. Electronically authenticated by: JARROD CARR Date: 01/25/2024 03:53 Lab Data Attestation: I reviewed the patient's lab results. Lab results narrative: Elevated BUN/CR, elevated BNP, normal trop, +rhino/enterovirus Labs: Lab Results 01/24/24 01/25/24 01/25/24 Range/Units 23:00 00:20 00:49 WBC 5.2 (4.0-11.0) 10^3/uL RBC 3.90 L (4.20-5.40) 10^6/uL Hgb 10.2 L (12.0-16.0) g/dL Hct 35.1 L (36.0-48.0) % MCV 90.0 (81.0-99.0) fL MCH 26.2 L (26.7-34.0) pg MCHC 29.1 L (29.9-35.2) g/dL RDW 16.1 H (11.0-15.0) % Plt Count 118 L (150-450) 10^3/uL MPV 10.4 (9.5-13.5) fL Neut % (Auto) 71.8 (43.0-75.0) % Lymph % (Auto) 16.7 L (20.5-60.0) % [place] % (Auto) 8.5 (1.7-12.0) % Eos % (Auto) 1.0 (0.9-7.0) % Baso % (Auto) 0.4 (0.2-2.0) % Neut # (Auto) 3.7 (1.4-6.5) 10^3/uL Lymph # (Auto) 0.9 L (1.2-3.8) 10^3/uL [place] # (Auto) 0.4 (0.3-0.8) 10^3/uL Eos # (Auto) 0.1 (0.0-0.7) 10^3/uL Baso # (Auto) 0.0 (0.0-0.1) 10^3/uL Abs Immat Gran (auto) 0.08 H (0.00-0.03) 10^3/uL Imm/Tot Granulo (auto) 1.6 H (0.0-0.5) % D-Dimer 3.37 H* (<=0.59) mg/L FEU Sodium 141 (136-145) mmol/L Potassium 4.6 (3.5-5.1) mmol/L Chloride 106 (98-107) mmol/L Carbon Dioxide 24.9 (21.0-32.0) mmol/L Anion Gap 14.7 BUN 49.0 H (7.0-18.0) mg/dL Creatinine 1.85 H (0.55-1.02) mg/dL Est GFR ( Amer) 32 L (>=60) Est GFR (Non-Af Amer) 27 L (>=60) BUN/Creatinine Ratio 26.5 Glucose 110 H (74-106) mg/dL Calcium 9.0 (8.5-10.1) mg/dL Magnesium 1.9 (1.8-2.4) mg/dL Total Bilirubin 0.7 (0.2-1.0) mg/dL AST 21 (15-37) U/L ALT 35 (14-59) U/L Alkaline Phosphatase 65 (46-116) U/L Total Creatine Kinase 23 L (26-192) U/L Troponin I High Sens 40.9 (4.0-51.3) pg/mL NT-Pro-B Natriuret Pep 3165.0 H* (<=900.0) pg/mL Total Protein 6.4 (6.4-8.2) g/dL Albumin 3.0 L (3.4-5.0) g/dL Globulin 3.4 g/dL Albumin/Globulin Ratio 0.9 Urine Color Yellow (YELLOW) Urine Clarity Clear (CLEAR) Urine pH 6.5 (5.0-9.0) Ur Specific [place] 1.020 (1.005-1.025) Urine Protein 100 A (NEG/TRACE) mg/dL Urine Glucose (UA) 100 A (NEGATIVE) mg/dL Urine Ketones Negative (NEGATIVE) mg/dL Urine Occult Blood Negative (NEGATIVE) Urine Nitrite Negative (NEGATIVE) Urine Bilirubin Negative (NEGATIVE) Urine Urobilinogen 0.2 (0.2-1.0) EU/dL Ur Leukocyte Esterase Negative (NEGATIVE) Urine RBC 0-2 (0-2) #/HPF Urine WBC None seen (NONE SEEN) #/HPF Ur Squamous Epith Cells None seen (NONE/RARE) #/LPF Urine Crystals None seen (None Seen) #/HPF Urine Bacteria None seen (NONE SEEN) #/HPF Urine Casts None seen (NONE SEEN) #/LPF Urine Mucus None seen (NONE SEEN) Urine Opiates Screen Negative (NEGATIVE) Ur Buprenorphine Scrn Positive A (NEGATIVE) Ur Oxycodone Screen Negative (NEGATIVE) Urine Methadone Screen Negative (NEGATIVE) Ur Barbiturates Screen Negative (NEGATIVE) U Tricyclic Antidepress Negative (NEGATIVE) Ur Phencyclidine Scrn Negative (NEGATIVE) Ur Amphetamines Screen Negative (NEGATIVE) U Methamphetamines Scrn Negative (NEGATIVE) U Benzodiazepines Scrn Negative (NEGATIVE) Urine Cocaine Screen Negative (NEGATIVE) U Cannabinoids Screen Negative (NEGATIVE) Adenovirus (PCR) Not detected (NOT DETECTE) C. pneumoniae DNA (PCR) Not detected (NOT DETECTE) Coronavirus Type OC43 Not detected (NOT DETECTE) Coronavirus Type HKU1 Not detected (NOT DETECTE) Coronavirus Type 229E Not detected (NOT DETECTE) Coronavirus Type NL63 Not detected (NOT DETECTE) Human Metapneumovir PCR Not detected (NOT DETECTE) M. pneumoniae (PCR) Not detected (NOT DETECTE) Parainfluenza PCR Not detected (NOT DETECTE) Parainfluenza 2 (PCR) Not detected (NOT DETECTE) Parainfluenza 3 (PCR) Not detected (NOT DETECTE) Parainfluenza 4 (PCR) Not detected (NOT DETECTE) RSV (RT-PCR) Not detected (NOT DETECTE) Entero/Rhino (PCR) Detected A (NOT DETECTE) SARS-CoV-2 (PCR) Not detected (NOT DETECTE) Bordetella pertussis (PCR) Not detected (NOT DETECTE) B parapertussis DNA PCR Not detected (NOT DETECTE) Influenza Type A (PCR) Not detected (NOT DETECTE) Influenza Type B (PCR) Not detected (NOT DETECTE) 01/25/24 Range/Units 02:24 WBC (4.0-11.0) 10^3/uL RBC (4.20-5.40) 10^6/uL Hgb (12.0-16.0) g/dL Hct (36.0-48.0) % MCV (81.0-99.0) fL MCH (26.7-34.0) pg MCHC (29.9-35.2) g/dL RDW (11.0-15.0) % Plt Count (150-450) 10^3/uL MPV (9.5-13.5) fL Neut % (Auto) (43.0-75.0) % Lymph % (Auto) (20.5-60.0) % [place] % (Auto) (1.7-12.0) % Eos % (Auto) (0.9-7.0) % Baso % (Auto) (0.2-2.0) % Neut # (Auto) (1.4-6.5) 10^3/uL Lymph # (Auto) (1.2-3.8) 10^3/uL [place] # (Auto) (0.3-0.8) 10^3/uL Eos # (Auto) (0.0-0.7) 10^3/uL Baso # (Auto) (0.0-0.1) 10^3/uL Abs Immat Gran (auto) (0.00-0.03) 10^3/uL Imm/Tot Granulo (auto) (0.0-0.5) % D-Dimer (<=0.59) mg/L FEU Sodium 141 (136-145) mmol/L Potassium 4.9 (3.5-5.1) mmol/L Chloride 107 (98-107) mmol/L Carbon Dioxide 24.5 (21.0-32.0) mmol/L Anion Gap 14.4 BUN 53.0 H (7.0-18.0) mg/dL Creatinine 1.98 H (0.55-1.02) mg/dL Est GFR ( Amer) 30 L (>=60) Est GFR (Non-Af Amer) 25 L (>=60) BUN/Creatinine Ratio 26.8 Glucose 107 H (74-106) mg/dL Calcium 8.4 L (8.5-10.1) mg/dL Magnesium (1.8-2.4) mg/dL Total Bilirubin (0.2-1.0) mg/dL AST (15-37) U/L ALT (14-59) U/L Alkaline Phosphatase (46-116) U/L Total Creatine Kinase (26-192) U/L Troponin I High Sens (4.0-51.3) pg/mL NT-Pro-B Natriuret Pep (<=900.0) pg/mL Total Protein (6.4-8.2) g/dL Albumin (3.4-5.0) g/dL Globulin g/dL Albumin/Globulin Ratio Urine Color (YELLOW) Urine Clarity (CLEAR) Urine pH (5.0-9.0) Ur Specific [place] (1.005-1.025) Urine Protein (NEG/TRACE) mg/dL Urine Glucose (UA) (NEGATIVE) mg/dL Urine Ketones (NEGATIVE) mg/dL Urine Occult Blood (NEGATIVE) Urine Nitrite (NEGATIVE) Urine Bilirubin (NEGATIVE) Urine Urobilinogen (0.2-1.0) EU/dL Ur Leukocyte Esterase (NEGATIVE) Urine RBC (0-2) #/HPF Urine WBC (NONE SEEN) #/HPF Ur Squamous Epith Cells (NONE/RARE) #/LPF Urine Crystals (None Seen) #/HPF Urine Bacteria (NONE SEEN) #/HPF Urine Casts (NONE SEEN) #/LPF Urine Mucus (NONE SEEN) Urine Opiates Screen (NEGATIVE) Ur Buprenorphine Scrn (NEGATIVE) Ur Oxycodone Screen (NEGATIVE) Urine Methadone Screen (NEGATIVE) Ur Barbiturates Screen (NEGATIVE) U Tricyclic Antidepress (NEGATIVE) Ur Phencyclidine Scrn (NEGATIVE) Ur Amphetamines Screen (NEGATIVE) U Methamphetamines Scrn (NEGATIVE) U Benzodiazepines Scrn (NEGATIVE) Urine Cocaine Screen (NEGATIVE) U Cannabinoids Screen (NEGATIVE) Adenovirus (PCR) (NOT DETECTE) C. pneumoniae DNA (PCR) (NOT DETECTE) Coronavirus Type OC43 (NOT DETECTE) Coronavirus Type HKU1 (NOT DETECTE) Coronavirus Type 229E (NOT DETECTE) Coronavirus Type NL63 (NOT DETECTE) Human Metapneumovir PCR (NOT DETECTE) M. pneumoniae (PCR) (NOT DETECTE) Parainfluenza PCR (NOT DETECTE) Parainfluenza 2 (PCR) (NOT DETECTE) Parainfluenza 3 (PCR) (NOT DETECTE) Parainfluenza 4 (PCR) (NOT DETECTE) RSV (RT-PCR) (NOT DETECTE) Entero/Rhino (PCR) (NOT DETECTE) SARS-CoV-2 (PCR) (NOT DETECTE) Bordetella pertussis (PCR) (NOT DETECTE) B parapertussis DNA PCR (NOT DETECTE) Influenza Type A (PCR) (NOT DETECTE) Influenza Type B (PCR) (NOT DETECTE) ECG Data Attestation: I personally reviewed and interpreted this ECG as follows: (Sinus tachycardia 106 beats for minute, nonspecific ST changes, left axis deviation, flip T waves in lead 1 and aVL, no acute ST segment elevation) Discharge Plan Discharge Chief Complaint: Weakness Clinical Impression: Fall from chair, Generalized weakness, Enterovirus infection, Rhinovirus infection, Chronic low back pain, Elevated d-dimer, Acute kidney injury superimposed on chronic kidney disease, Adult failure to thrive Prescriptions / Home Meds: No Action buprenorphine-naloxone 8-2 mg film 1.5 film sublingual Q24H metoprolol tartrate 25 mg tablet 25 mg PO Q12H naloxone [Narcan] 4 mg/actuation spray,non-aerosol 1 spray INTRANASAL Q3M PRN (Reason: opioid overdose) valsartan 80 mg tablet 80 mg PO DAILY spironolactone 25 mg Tablet 25 mg PO QD 30 Days Qty: 30 0RF ferrous sulfate [Iron (ferrous sulfate)] 325 mg (65 mg iron) tablet 325 mg PO DAILY 30 Days Qty: 30 0RF amlodipine 5 mg tablet 5 mg PO DAILY furosemide 20 mg tablet 20 mg PO DAILY prasugrel 10 mg tablet 10 mg PO DAILY gabapentin 100 mg Capsule 100 mg PO TID Qty: 90 0RF prednisone 10 mg tablets,dose pack 10 mg PO DAILY Qty: 39 0RF Rx Instructions: 6 PO daily x 3 days, then 4 PO daily x 3 days, then 2 PO daily x 3 days, then 1 PO daily x 3 days cephalexin 500 mg capsule 500 mg PO BID 7 Days Qty: 14 0RF methylprednisolone [Medrol (David)] 4 mg tablets,dose pack 4 mg PO DAILY Qty: 21 0RF Rx Instructions: follow directions on the package albuterol sulfate 90 mcg/actuation HFA aerosol inhaler INHALATION Referrals: Shaikh Serna MD [Primary Care Provider] - 1 week Procedures ED Procedure Instructions Procedures Procedures: Peripheral IV placement; done by myself due to difficult access. 22 g angiocath was placed into the right forearm for IVmedications and IV fluids. Pt tolerated procedure well
[2024-01-24 23:27] LABS: Basophils Percent Auto 0.4 % (0.2-2.0); Eosinophils Absolute Auto 0.1 10^3/uL (0.0-0.7); Hematocrit 35.1 % (36.0-48.0); Hemoglobin 10.2 g/dL (12.0-16.0); Immature Granulocytes Abs Auto 0.08 10^3/uL (0.00-0.03); Immature Granulocytes Pct Auto 1.6 % (0.0-0.5); Lymphocytes Absolute Auto 0.9 10^3/uL (1.2-3.8); Lymphocytes Percent Auto 16.7 % (20.5-60.0); Mean Corpuscular HGB Conc 29.1 g/dL (29.9-35.2); Mean Corpuscular Hemoglobin 26.2 pg (26.7-34.0); Mean Platelet Volume 10.4 fL (9.5-13.5); Monocytes Absolute Auto 0.4 10^3/uL (0.3-0.8); Monocytes Percent Auto 8.5 % (1.7-12.0); Neutrophils Absolute Auto 3.7 10^3/uL (1.4-6.5); Neutrophils Percent Auto 71.8 % (43.0-75.0); Platelet Count 118 10^3/uL (150-450); Red Cell Distribution Width 16.1 % (11.0-15.0); White Blood Count 5.2 10^3/uL (4.0-11.0)
[2024-01-24] MEDS: KETOROLAC TROMETHAMINE 30 MG/ML VIAL 15 MG IVP (23:41)
[2024-01-24 23:51] LABS: Alanine Aminotransferase 35 U/L (14-59); Albumin Globulin Ratio 0.9; Alkaline Phosphatase 65 U/L (46-116); Anion Gap 14.7; Aspartate Amino Transferase 21 U/L (15-37); BUN Creatinine Ratio 26.5; Bilirubin Total 0.7 mg/dL (0.2-1.0); Carbon Dioxide 24.9 mmol/L (21.0-32.0); Chloride 106 mmol/L (98-107); Creatine Kinase 23 U/L (26-192); Estimated GFR (African America 32 (>=60); Estimated GFR (Non-African Ame 27 (>=60); Globulin 3.4 g/dL; Glucose 110 mg/dL (74-106); Magnesium 1.9 mg/dL (1.8-2.4); Potassium 4.6 mmol/L (3.5-5.1); Sodium 141 mmol/L (136-145); Total Protein 6.4 g/dL (6.4-8.2); Troponin I High Sensitivity 40.9 pg/mL (4.0-51.3)
--- NOTE | 2024-01-24 23:55 | XR_ITS ---
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 There is no edema. The lungs are clear without infiltrate, effusion, or pneumothorax. The bones are intact. XR/XR chest 1V Impression: Cardiomegaly without acute cardiopulmonary process. Electronically authenticated by: RODERICK JONES Date: 01/25/2024 00:54
[2024-01-25] VITALS (41 sets, daily range): BP systolic 122–168; BP diastolic 58–96; PULSE 77–136; RESP 11–30; TEMP 36.1–36.9; O2SAT 90–98; BMI 32.6
[2024-01-25 00:41] LABS: Bilirubin Urine NEGATIVE (NEGATIVE); Blood Urine NEGATIVE (NEGATIVE); Clarity Urine CLEAR (CLEAR); Color Urine YELLOW (YELLOW); Glucose Urine UA 100 mg/dL (NEGATIVE); Ketones Urine NEGATIVE (NEGATIVE); Leukocyte Esterase Urine NEGATIVE (NEGATIVE); Nitrite Urine NEGATIVE (NEGATIVE); Protein Urine 100 mg/dL (NEG/TRACE); Urobilinogen Urine 0.2 EU/dL (0.2-1.0); pH Urine 6.5 (5.0-9.0)
[2024-01-25 00:46] LABS: Bacteria Urine NONE SEEN #/HPF (NONE SEEN); Crystals Seen? None Seen #/HPF (None Seen); Mucus Urine NONE SEEN (NONE SEEN); RBC Urine 0-2 #/HPF (0-2); Squamous Epithelial Cell Urine NONE SEEN #/LPF (NONE/RARE); WBC Urine NONE SEEN #/HPF (NONE SEEN)
[2024-01-25 00:47] LABS: Cast Seen? NONE SEEN #/LPF (NONE SEEN)
[2024-01-25 00:53] LABS: Adenovirus NOT DETECTED (NOT DETECTE); Bordetella parapertussis NOT DETECTED (NOT DETECTE); Coronavirus 229E NOT DETECTED (NOT DETECTE); Coronavirus HKU1 NOT DETECTED (NOT DETECTE); Coronavirus NL63 NOT DETECTED (NOT DETECTE); Coronavirus OC43 NOT DETECTED (NOT DETECTE); Human Metapneumovirus NOT DETECTED (NOT DETECTE); Influenza A NOT DETECTED (NOT DETECTE); Influenza B NOT DETECTED (NOT DETECTE); Mycoplasma pneumoniae NOT DETECTED (NOT DETECTE); Parainfluenza Virus 1 NOT DETECTED (NOT DETECTE); Parainfluenza Virus 2 NOT DETECTED (NOT DETECTE); Parainfluenza Virus 3 NOT DETECTED (NOT DETECTE); Parainfluenza Virus 4 NOT DETECTED (NOT DETECTE); Respiratory Syncytial Virus NOT DETECTED (NOT DETECTE); SARS-CoV-2 NOT DETECTED (NOT DETECTE)
[2024-01-25] MEDS: 0.9 % SODIUM CHLORIDE 1,000 ML 500 ML IV (01:05)
[2024-01-25 01:07] LABS: D Dimer 3.37 mg/L FEU (<=0.59)
[2024-01-25 02:06] LABS: Human Rhinovirus/Enterovirus DETECTED (NOT DETECTE)
[2024-01-25] MEDS: OXYCODONE HCL/ACETAMINOPHEN 5MG/325MG 1 TAB PO (02:27)
[2024-01-25 02:40] LABS: Anion Gap 14.4; BUN Creatinine Ratio 26.8; Calcium 8.4 mg/dL (8.5-10.1); Carbon Dioxide 24.5 mmol/L (21.0-32.0); Chloride 107 mmol/L (98-107); Estimated GFR (African America 30 (>=60); Estimated GFR (Non-African Ame 25 (>=60); Glucose 107 mg/dL (74-106); Potassium 4.9 mmol/L (3.5-5.1); Sodium 141 mmol/L (136-145)
--- NOTE | 2024-01-25 03:01 | CT_ITS ---
The [address] [address] Patient Name: BELLE JEONG MRN: [id number] date: 1950 Sex: F Assigned Patient Location: ER Current Patient Location: Accession/Order Number: [id number] Exam Date: 01/25/2024 03:20 Report Date: 01/25/2024 03:53 At the request of: TOVA MARKER Procedure: CT lumbar spine wo con CT lumbar spine wo con INDICATION: 73 years old; Female.fall TECHNIQUE: CT of the lumbar spine.Contrast None. Sagittal and coronal images as well as axial reconstructions through the disc spaces were produced.. Ionizing radiation dose reduced via iterative reconstruction/FBP blend and body size kV/mA adjustment. COMPARISON: Lumbar CT dated 11/18/2023. FINDINGS: POSTOPERATIVE CHANGES: None ALIGNMENT AND LORDOSIS: Normal lumbar lordosis. VERTEBRAE: No acute fractures appreciated. There is stable appearance of mild wedging of the anterior aspect of the T12 vertebral body which is unchanged from the prior study. There are multiple hemangiomas noted with thickened trabecular pattern and central areas of hypodensity consistent with fat. These are present in L1, L2, and L5. These remain unchanged as compared to the prior study. No bony displacement is seen. No spondylolysis or spondylolisthesis is present. The transverse processes are intact. SI joints are intact. 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 This is unchanged from prior. No lytic or blastic lesions. DISC LEVELS: L1-L2: No disc herniation. No spinal canal or foraminal narrowing. Anterior osteophyte formation. L2-L3: No disc herniation. No spinal canal or foraminal narrowing. Anterior osteophyte formation. L3-L4: Facet degeneration with bony overgrowth and ligamentous thickening. Anterior osteophyte formation. Mild central canal stenosis. Neural foramina lateral recesses are patent. L4-L5: Facet degeneration with ligamentous thickening. Mild central canal stenosis. Osteophytes and the facets project into the left neural foramen with moderate left-sided foraminal stenosis. There is compression of the exiting left L4 nerve root. L5-S1: Vacuum disc degeneration. Disc space narrowing posteriorly. No focal disc herniation or bulging. There is facet degeneration with bony overgrowth. Severe bilateral foraminal stenosis is present. There is compression of the exiting L5 nerve roots. LOWER THORACIC DISCS: At T12-L1 and T11-T12, disc space narrowing is seen with anterior osteophyte formation. No focal disc herniation is seen. The central canal and neural foramina are patent. The study does not visualize the distal cord or conus. OTHER: Posterior paraspinal muscle atrophy is present. Psoas muscle atrophy is present. Vascular calcifications are seen. The renal cortex appears atrophic. There is bladder distention partially visualized. CT/CT lumbar spine wo con IMPRESSION: 1. No acute fracture or vertebral body collapse. 2. Multilevel degenerative changes. Please see the detailed discussion of the individual levels in the body of this report. 3. Partially visualized distended bladder. 4. Vascular calcifications. 2. No fracture or bony displacement. Electronically authenticated by: ZELDA CARR Date: 01/25/2024 03:53
[2024-01-25 03:27] LABS: Amphetamine Screen Urine NEGATIVE (NEGATIVE); Barbiturates Screen Urine NEGATIVE (NEGATIVE); Benzodiazepines Screen Urine NEGATIVE (NEGATIVE); Buprenorphine Screen Urine POSITIVE (NEGATIVE); Cannabinoid Screen Urine NEGATIVE (NEGATIVE); Cocaine Screen Urine NEGATIVE (NEGATIVE); Methadone Screen Urine NEGATIVE (NEGATIVE); Methamphetamines Screen Urine NEGATIVE (NEGATIVE); Opiate Screen Urine NEGATIVE (NEGATIVE); Oxycodone Screen Urine NEGATIVE (NEGATIVE); Phencyclidine Screen Urine NEGATIVE (NEGATIVE); Tricyclic Antidepressant Urine NEGATIVE (NEGATIVE)
[2024-01-25] MEDS: 0.9 % SODIUM CHLORIDE 500 ML IV (03:33)
[2024-01-25] MEDS: ENOXAPARIN SODIUM 30 MG/0.3 ML SYRINGE SUBQ (03:46)
[2024-01-25] MEDS: 0.9 % SODIUM CHLORIDE 1,000 ML 125 ML IV (04:20)
--- OUTSIDE RECORDS SUMMARY | 2024-01-25 06:36 | XMS_ITS | CCD ---
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 Role Phone INGRID IBARRA Unavailable Unavailable [...] able James Pereira DO Primary Care Provider Shaikh Serna MD Primary Care Provider MD Mary Espana Attending Provider [phone] MD Laury Serna Primary Care Provider [phone] Shaikh Serna Primary Care Unavailable Mary Espana [...] mouth every 6 (six) hours 0 Active [id number] actuat albuterol 0.09 mg/actuat metered dose inhaler (3 sources) beta2-Adrenergic Agonist Start: 12-02-2023 End: 01-01-2024 take 2 puff(s) by inhalation every four hours for wheezing albuterol HFA 90 mcg/act inhaler Indications: Chronic obstructive pulmonary disease, unspecified COPD type ([facility]) Inhale 2 puffs every 4 (four) hours [...] Ordered: 20-Aug-2023 DO Active 168 hr cloNIDine 0.09954 mg/hr transdermal system (3 sources) Central alpha-2 [...] Active Start: 10-12-2021 take 2 tablets by [facility] every twenty-four hours predniSONE 20 MG 2 [...] Start: 06-05-2020 take 1 capsule by mo [facility] once daily at mealtime Vitamin B Comp [...] medications] Episodic Other aftercare (1 source) 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 Patients having hematocrit values >55% require a special collection tube for coagulation studies. Please contact the laboratory at [phone] guided bone marrow bx/asp iron 01-06-2024 CT guided bone marrow bx/aspir [facility] Main [place] [address] [place] [address] CT Scan Report Signed Patient: Kusum Huerta MR#: [id number] 01 : 1950 Acct:[id number] Age/Sex: 73 / F ADM Date: 01/06/24 Loc: CT Room: Type: [facility] Attending Dr: Mary Espana MD [...] Yaw Deluca M.D.01/06/2024 2:06 PM Dictation Location: [place] [address] Transcribed By: CHELE 01/06/24 140 Dictated By: Yaw Deluca II, MD 01/06/24 140 Signed By: 01/06/24 140 Normal [facility] Coagulation Profileon 2023 aPTT Coag (Bld) [Time] 24.6 s Low 25.1-36.5 [facility] Comment on above: Order Comment: STAT FOR BX Result Comment: A he matocrit value greater than 55% may lead to inaccurate results in coagulation testing. Patients having hematocrit values >55% require a special collection tube for coagulation studies. Please contact the laboratory at [phone] for redraw instructions. PERFORMED BY: [place] [id number] PATHOLOGIST CHECK EXAMINER CUCA VOGT M.D. Performed By: #### C BC, PLT, PP #### [address] INR Coag (PPP) [Relative time] 0.9 {INR} Normal [facility] Comment on above: Order Comment: STAT [...] By: #### C BC, PLT, PP #### [address] PT Coag (PPP) [Time] 10.4 s Normal 9.0-12.9 [facility] Comment on above: Order Comment: STAT FOR BX Result Comment: A he matocrit value greater than 55% may lead to inaccurate results in coagulation testing. Patients having hematocrit values >55% require a special collection tube for coagulation studies. Please contact the laboratory at [phone] for redraw instructions. Performed By: #### C BC, PLT, PP #### [address] Complete Blood Count Auto Di ffon 01-06-2024 Basophils (Bld) [#/Vol] 0.0 10*3/uL Normal 0.0-0.2 [facility] Comment on above: Order Comment: STAT FOR BX Result Comment: PERF ORMED BY: [place] [id number] PATHOLOGIST CHECK EXAMINER CUCA VOGT M.D. Performed By: #### C BC, PLT, PP #### [address] Basophils/100 WBC (Bld) 0.1 % Normal . [facility] Comment on above: Order Comment: STAT FOR BX Performed By: #### C BC, PLT, PP #### [address] Eosinophils (Bld) [#/Vol] 0.0 10*3/uL Normal 0.0-0.45 [facility] Comment on above: Order Comment: STAT FOR BX Performed By: #### C BC, PLT, PP #### [address] Eosinophils/100 WBC (Bld) 0.4 % Normal . [facility] Comment on above: Order Comment: STAT FOR BX Performed By: #### C BC, PLT, PP #### [address] [address] [place] Erythrocyte distribution width (RBC) [Ratio] 17.3 % High 11.9-15.3 [facility] Comment on above: Order Comment: STAT FOR BX Performed By: #### C BC, PLT, PP #### [address] Hematocrit (Bld) [Volume fraction] 33.3 % Low 34.0-46.4 [facility] Comment on above: Order Comment: STAT FOR BX Performed By: #### C BC, PLT, PP #### [address] Hemoglobin (Bld) [Mass/Vol] 10.4 g/dL Low 11.8-15.4 [facility] Comment on above: Order Comment: STAT FOR BX Performed By: #### C BC, PLT, PP #### [address] Lymphocytes (Bld) [#/Vol] 0.7 10*3/uL Low 1.00-4.8 [facility] Comment on above: Order Comment: STAT FOR BX Performed By: #### C BC, PLT, PP #### [address] Lymphocytes/100 WBC (Bld) 10.7 % Normal . [facility] Comment on above: Order Comment: STAT FOR BX Performed By: #### C BC, PLT, PP #### [address] MCH (RBC) [Entitic mass] 26.6 pg Normal 24.7-34.3 [facility] Comment on above: Order Comment: STAT FOR BX Performed By: #### C BC, PLT, PP #### [address] MCV (RBC) [Entitic vol] 85.0 fL Normal 80-100 [facility] Comment on above: Order Comment: STAT FOR BX Performed By: #### C BC, PLT, PP #### [address] Mean Corpuscular HGB Conc 31.3 g/dL Low 32.0-35.0 [facility] Comment on above: Order Comment: STAT FOR BX Performed By: #### C BC, PLT, PP #### [facility] [address] Monocytes (Bld) [#/Vol] 0.7 10*3/uL Normal 0.0-0.8 [facility] Comment on above: Order Comment: STAT FOR BX Performed By: #### C BC, PLT, PP #### [facility] [address] [place] [address] [place] Monocytes/100 WBC (Bld) 9.4 % Normal . [facility] Comment on above: Order Comment: STAT FOR BX Performed By: #### C BC, PLT, PP #### [address] Neutrophils (Bld) [#/Vol] 5.5 10*3/uL Normal 1.8-7.7 [facility] Comment on above: Order Comment: STAT FOR BX Performed By: #### C BC, PLT, PP #### [facility] [address] Neutrophils/100 WBC (Bld) 79.4 % Normal . [facility] Comment on above: Order Comment: STAT FOR BX Performed By: #### C BC, PLT, PP #### [facility] [address] [place] [address] [place] NRBC% 0.1 /100{WBC} Normal 0-0.5 [facility] Comment on above: Order Comment: STAT FOR BX Performed By: #### C BC, PLT, PP #### [facility] [address] [place] [address] [place] Platelet mean volume (Bld) [Entitic vol] 7.7 fL Normal 6.3-10.7 [facility] Comment on above: Order Comment: STAT FOR BX Performed By: #### C BC, PLT, PP #### [facility] [address] [place] [address] [place] RBC (Bld) [#/Vol] 3.92 10*6/uL Normal 3.60-5.00 [facility] Comment on above: Order Comment: STAT FOR BX Performed By: #### C BC, PLT, PP #### [facility] [address] WBC (Bld) [#/Vol] 6.9 10*3/uL Normal 3.8-11.6 [facility] Comment on above: Order Comment: STAT FOR BX Performed By: #### C BC, PLT, PP #### [address] INR in Platelet poor plasma by Coagulation assayOrdered By: Mary Espana on 01-06-2024 INR Coag (PPP) [Relative time] 0.9 {INR} [facility] Comment on above: INR Therapeutic Rang e [...] Platelets (Bld) [#/Vol] 136 10*3/uL Low 150-450 [facility] Comment on above: Order Comment: STAT FOR BX Result Comment: PERF ORMED BY: [place] [address] PATHOLOGIST CHECK EXAMINER CUCA VOGT M.D. Performed By: #### C BC, PLT, PP #### [address] Platelets Auto (Bld) [#/Vol] Ordered By: Mary Espana on 01-06-2024 Platelets (Bld) [#/Vol] 136 10*3/uL 150-450 [facility] Prothrombin time (PT)Ordered By: Mary Espana on 01-06-2024 PT Coag (PPP) [Time] 10.4 s 9.0-12.9 [facility] Comment on above: A hematocrit value g reater than 55% may lead to inaccurate results in coagulation testing. Patients having hematocrit values >55% require a special collection tube for coagulation studies. Please contact the laboratory at [phone] for redraw instructions. Multiple labsOrdered By: Maureen Eckert on 11-23-2023 [facility] Height or Weight NOT Doneon 08-20-2023 Adult depression screening assessment No [facility] 600 DO Work Phone: Fall risk assessment a) No falls within the last year [facility] 600 DO Work Phone: Office Visit (Cardiology)on 08-20-2023 Follow-up visit Diagnoses/Problems Assessed Mixed hyperlipidemia (272.2) (E78.2) Essential hypertension (401.9) (I10) Atherosclerosis of [place] coronary artery without angina pectoris (414.01) (I25.10) Status post angioplasty (V45.89) (Z98.62) Shortness of breath (786.05) (R06.02) Former smoker (V15.82) (Z87.891) Quit 1994 Orders Atherosclerosis of [place] coronary artery without angina pectoris, Status post [...] negative for complaint. Vitals Vital Signs Recorded: [id number] 11:08AM Heart Rate70, L Radial [id number], LUE, Sitting Egmjfyvrg12, LUE, Sitting Height5 ft 3 in Height [...] eye . (more content not included)... Normal [employer] XR KNEE LT 4V or >on 023 [...] by: CHARLEY LUCAS Date: 2022-12-27 15:51 Normal [facility] XR RIBS LT PA Waqar 3 [...] calcified granuloma in the right lung base. [place] screws noted in the right humeral head. IMPRESSION: 1. No acute rib fracture identified. 2. No acute cardiopulmonary process. Electronically authenticated by: MARLON METCALF Date: 2022-12-27 15:50 Normal [facility] Tobacco Screening.on 022 Adult depression screening assessment No -[facility] [employer] 250 DO Work Phone: Fall risk assessment a) No falls within the last year [facility] [employer] 250 DO Work Phone: Tobacco use status [facility] b) No -[facility] 250 DO Work Phone: COVID Quick Testingon 2020 Result Positive [employer] Other Automated blood platelet cou nt (count/volume)on 03-04-2021 Platelets (Bld) [#/Vol] 249 10*3/uL 150-450 [facility] Automated blood platelet oracio n volume measurementon 03-04-2021 Platelet mean volume (Bld) [Entitic vol] 8.2 fL 6.3-10.7 [facility] Automated erythrocyte distri bution width ratioon 03-04-2021 Erythrocyte distribution width (RBC) [Ratio] 17.4 % 11.9-15.3 [facility] Automated erythrocyte mean c orpuscular hemoglobin (mass per erythrocyte)on 03-04-2021 MCH (RBC) [Entitic mass] 27.2 pg 24.7-34.3 [facility] Automated erythrocyte mean c orpuscular hemoglobin concentration measurement (mass/volon 03-04-2021 MCHC (RBC) [Mass/Vol] 32.7 g/dL 32.0-35.0 [facility] Automated erythrocyte mean c orpuscular volumeon 03-04-2021 MCV (RBC) [Entitic vol] 83.2 fL 80-100 [facility] Blood erythrocytes automated count (number/volume)on 03-04-2021 RBC (Bld) [#/Vol] 3.83 10*6/uL 3.60-5.00 [facility] Blood hemoglobin measurement (mass/volume)on 03-04-2021 Hemoglobin (Bld) [Mass/Vol] 10.4 g/dL 11.8-15.4 [facility] Blood leukocytes automated c ount (number/volume)on 03-04-2021 WBC (Bld) [#/Vol] 9.9 10*3/uL 3.8-11.6 [facility] Body fluid albumin measureme nt (mass/volume)on 03-04-2021 Albumin (Body fld) [Mass/Vol] 3.6 g/dL 3.2-5.5 [facility] Estimated glomerular filtrat ion rate (GFR) non- Americanon 03-04-2021 GFR/1.73 sq M predicted among non-blacks MDRD (S/P/Bld) [Vol rate/Area] 27 mL/Min [facility] Hematocrit [Volume Fraction] of Blood by Automated counton 03-04-2021 Hematocrit (Bld) [Volume fraction] 31.9 % 34.0-46.4 [facility] Otheron 03-04-2021 GFR/1.73 sq M.predicted MDRD (S/P/Bld) [Vol rate/Area] 33 mL/Min [facility] Comment on above: GFR estimated refere nce range: According to KDOQI guidelines, <60 ml/min/1.73m2 is sufficient to diagnose a patient with chronic kidney disease. Pharmacy Creatinine Clearance (Chem N/A [facility] Protein [Mass/volume] in Ser um or Plasmaon 03-04-2021 Protein [Mass/Vol] 6.6 g/dL 6.1-7.9 [facility] Serum globulin measurement b y calculation (mass/volume)on 03-04-2021 Globulin (S) [Mass/Vol] 3.0 g/dL [facility] Serum or plasma alanine fleming otransferase measurement without P-5'-P (enzymatic activion 03-04-2021 ALT No additional P-5'-P [Catalytic activity/Vol] 12 U/L 10-60 [facility] Serum or plasma albumin/glob ulin mass ratioon 03-04-2021 Albumin/Globulin [Mass ratio] 1.2 {ratio} [facility] Serum or plasma alkaline greyson sphatase measurement (enzymatic activity/volume)on 03-04-2021 ALP [Catalytic activity/Vol] 155 U/L 32-92 [facility] Serum or plasma aspartate am inotransferase measurement (enzymatic activity/volume)on 03-04-2021 AST [Catalytic activity/Vol] 12 U/L 10-42 [facility] Serum or plasma calcium terence urement (mass/volume)on 03-04-2021 Calcium [Mass/Vol] 8.8 mg/dL 8.2-10.2 [facility] Serum or plasma chloride oracio surement (moles/volume)on 03-04-2021 Chloride [Moles/Vol] 104 mmol/L 95-114 [facility] Serum or plasma creatinine m easurement with calculation of estimated glomerular filtron 03-04-2021 Creatinine [Mass/Vol] 1.82 mg/dL 0.44-1.03 [facility] Serum or plasma glucose terence urement (mass/volume)on 03-04-2021 Glucose [Mass/Vol] 109 mg/dL 70-100 [facility] Comment on above: ADA recommended refe rence rangeRandom Glucose Reference Range is dependent on time and content of last meal. Glucose of more than 200 mg/dL in a nonstressed, ambulatory subject supports the diagnosis of Diabetes Mellitus. Serum or plasma potassium me asurement (moles/volume)on 03-04-2021 Potassium [Moles/Vol] 5.6 mmol/L 3.5-5.1 [facility] Serum or plasma sodium measu rement (moles/volume)on 03-04-2021 Sodium [Moles/Vol] 135 mmol/L 136-146 [facility] Serum or plasma total biliru bin measurement (mass/volume)on 03-04-2021 Bilirubin [Mass/Vol] 1.0 mg/dL 0.3-1.2 [facility] Serum or plasma total carbon dioxide measurement (moles/volume)on 03-04-2021 CO2 [Moles/Vol] 23.9 mmol/L 22.0-30.0 [facility] Serum or plasma urea nitroge n measurement (mass/volume)on 03-04-2021 Urea nitrogen [Mass/Vol] 37 mg/dL 9- [facility] Vital Signs Date Time Vital Sign Value Performing Clinician Facility 01-06-2024 11:41-0500 Diastolic blood pressure 73 mm[Hg] MD Shaikh Serna Work Phone: [facility] 01-06-2024 11:41-0500 Heart rate 92 /min MD Shaikh Serna Work Phone: [facility] 01-06-2024 11:41-0500 Respiratory rate 16 /min MD Shaikh Serna Work Phone: [facility] 01-06-2024 11:41-0500 SaO2% (BldA) [Mass fraction] 97 % MD Shaikh Serna Work Phone: [facility] 01-06-2024 11:41-0500 Systolic blood pressure 152 mm[Hg] MD Shaikh Serna Work Phone: [facility] 01-06-2024 10:00-0500 Body height 157.48 cm MD Shaikh Serna Work Phone: [facility] 01-06-2024 10:00-0500 Body weight 86.18 kg MD Shaikh Serna Work Phone: [facility] 08-20-2023 11:08-0400 Body height 160.02 cm James Pereira Work Phone: [facility] [employer] 600 DO Work Phone: 08-20-2023 11:08-0400 Body mass index (BMI) [Ratio] Medical Reason Not Done James Pereira Work Phone: [facility] [employer] 600 DO Work Phone: 08-20-2023 11:08-0400 Diastolic blood pressure 52 mm[Hg] James Pereira Work Phone: [facility] [employer] 600 DO Work Phone: 09-28-2023 11:08-0400 Heart rate 70 /min James Jasso [place] Work Phone: [facility] [employer] 600 DO Work Phone: 08-20-2023 11:08-0400 Systolic blood pressure 110 mm[Hg] James Jasso [place] Work Phone: [facility] 600 DO Work Phone: 04-30-2022 10:57-0400 Body height 160.02 cm James Jasso [place] Work Phone: [facility] 250 DO Work Phone: 04-30-2022 10:57-0400 Body mass index (BMI) [Ratio] 36.67 kg/m2 James Jasso [place] Work Phone: [facility] 250 DO Work Phone: 04-30-2022 10:57-0400 Body surface area Derived from formula 1.96 m2 James Jasso [place] Work Phone: [facility] 250 DO Work Phone: 04-30-2022 10:57-0400 Body weight 93.9 kg James Pereira Work Phone: [facility] 250 DO Work Phone: 04-30-2022 10:57-0400 Diastolic blood pressure 50 mm[Hg] James Jasso [place] Work Phone: [facility] 250 DO Work Phone: 04-30-2022 10:57-0400 Heart rate 64 /min James Jasso [place] Work Phone: [facility] 250 DO Work Phone: 04-30-2022 10:57-0400 Systolic blood pressure 120 mm[Hg] James Jasso [place] Work Phone: [facility] 250 DO Work Phone: 04-16-2022 00:00-0400 60 1 Ingrid Contreras DO Work Phone: [facility] 250 DO Work Phone: Comment on above: [id number] 10-12-2021 14:30-0500 Body height Brian Sawyer Other [employer] Other 10-12-2021 14:30-0500 Body mass index (BMI) [Ratio] 36.61 kg/m2 Brian Sawyer Other [employer] Other 10-12-2021 14:30-0500 Body temperature 98.7 [degF] Brian Sawyer Other [employer] Other 10-12-2021 14:30-0500 Body weight 99.79 kg Brian Sawyer Other [employer] Other 10-12-2021 14:30-0500 Diastolic blood pressure 58 mm[Hg] Brian Sawyer Other [employer] Other 10-12-2021 14:30-0500 SaO2% (BldA) [Mass fraction] 92 % Brian Sawyer Other [employer] Other 10-12-2021 14:30-0500 Systolic blood pressure 94 mm[Hg] Brian Sawyer Other [employer] Other Encounters Encounter Date Encounter Type Care Provider Facility Start: 01-14-2024 End: 01-14-2024 ambulatory SHAIKH DAPHNE Not Available Start: 01-06-2024 End: 01-06-2024 ambulatory Shaikh Daphne Facility:[facility] Start: 01-06-2024 End: 01-06-2024 Admission to same day surgery center MD Shaikh Serna Work Phone: [facility] [place] Work Phone: Start: 01-06-2024 End: 01-06-2024 ambulatory MD Shaikh Serna Work Phone: [facility] Work Phone: Start: 12-29-2023 Telephone encounter Trent Ramirez MD Work Phone: [facility] 210 Start: 12-17-2023 End: 12-17-2023 ambulatory SHAIKH DAPHNE Not Available Start: 12-16-2023 End: 12-16-2023 ambulatory TRENT RAMIREZ Not Available Start: 12-02-2023 End: 12-02-2023 ambulatory SHAIKH DAPHNE Not Available Start: 11-25-2023 Orders Only Not In System Ref Prov [facility] General Surgery Start: 11-19-2023 End: 11-24-2023 Emergency department patient visit JAMES Louisa [facility] Start: 11-12-2023 End: 11-12-2023 ambulatory ANTONY GRANT Not Available Start: 08-20-2023 Office outpatient vi sit 25 minutes James Pereira [facility] Work Phone: Start: 08-20-[address] [facility]: Start: 12-27-2022 End: 12-27-2022 ambulatory LARA EDOUARD Facility:[facility] Start: 06-17-2022 Patient encounter procedure James Pereira Work Phone: [facility] 250 DO Work Phone: Start: 04-30-2022 Office outpatient vi sit 25 minutes James Pereira Work Phone: [facility] 250 DO Work Phone: Start: 04-22-2022 Patient encounter procedure Ingrid Contreras DO Work Phone: -[facility] 250 DO Work Phone: Start: 10-12-2021 End: 10-12-2021 ambulatory Brian Sawyer Other [facility] Other Start: 10-12-2021 Office outpatient vi sit 15 minutes Brian Sawyer [facility] Start: 03-04-2021 End: 03-04-2021 Patient encounter procedure James [place] -[facility] [place] Start: 07-22-2017 Ambulatory INGRID IBARRA Facil [id number] Procedures Date Procedure Procedure Detail Performing Clinician Start: 11-23-2023 MULTIPLE LABS Not In Sy stem Ref Prov Start: 11-23-1979 Total colonoscopy Willi am Ben DO Work Phone: Appendectomy [place] [facility] Work Phone: Arthroplasty of knee James Pereira Work Phone: Cardiac catheterization Will rey Ben DO Work Phone: Cholecystectomy James Jasso Any stol Work Phone: Hysterectomy [place] [facility] Work Phone: Removal of thrombus [place] [facility] Kelli Work Phone: Surgical procedure o n eye proper James E [place] Work Phone: Plan of Treatment Date Care Activity Detail Author Start: 12-25-2031 DTaP,Tdap and Td Vaccines (2 - Td or Tdap) DTaP,Tdap and Td Vaccines (2 - Td or Tdap) [facility] Start: 01-21-2024 End: 01-21-2024 Patient encounter procedure 01/21/2024 1:50 PM EST Procedure Visit [facility] [address] [facility] [address] [place] [address] Antony Grant DPM [address] [facility] [address] [place] [address] [facility] Start: 01-20-2024 End: 01-20-2024 Patient encounter procedure 01/20/2024 9:30 AM EST Office Visit [facility] [address] [place] [address] Shaikh Serna MD [address] [place] [address] [facility] Start: 01-14-2024 End: 01-14-2024 Patient encounter procedure 01/14/2024 11:00 AM EST Procedure Visit [facility] [address] [place] [id number] [facility] Start: 01-06-2024 [facility] Start: 01-06-2024 [facility] Start: 01-06-2024 Bone marrow sampling [facility] Start: 07-24-2023 Influenza vaccination [facility] Start: 07-10-2022 FUV, Provider: Ingrid Ibarra, Status: Pen, Time: 10:50 AM [facility], Provider: Ingrid Ibarra, Status: Pen, Time: 10:50 AM [facility] Work Phone: Start: 04-30-2022 FUV, Provider: Cristal Grant, Status: Pen, Time: 10:30 AM [facility], Provider: Cristal Grant, Status: Pen, Time: 10:30 AM [facility] 250 DO Work Phone: Start: 01-15-2022 Adult BMI Screening Adult BMI Screening [facility] Start: 07-24-2018 Pneumococcal Vaccine: 65+ Years (2 - PCV) Pneumococcal Vaccine: 65+ Years (2 - PCV) [facility] Start: 2015 Fall Risk Screening Fall Risk Screening [facility] Start: 2000 Administration of varicella zoster vaccine Zoster (Shingles) Vaccine (1 of 2) [facility] Start: 04-15-1990 Screening for malignant neoplasm of breast Mammogram [facility] Start: 1962 Depression Screening Depression Screening [facility] Start: 1962 Tobacco Screening Tobacco Screening [facility] Start: 1950 Medicare Annual Wellness (AWV) Medicare Annual Wellness (AWV) [facility] Start: 1950 Screening for malignant neoplasm of colon [facility] Start: 1950 Medicare Annual Wellness Visit Medicare Annual Wellness Visit [facility] Basophils [#/volume] in Blood by Automated count [facility] Basophils/100 leukoc ytes in Blood by Automated count [facility] Eosinophils/100 leukocytes in Blood by Automated count [facility] Erythrocyte distribu tion width [Ratio] by Automated count [facility] Erythrocytes [#/volu me] in Blood [facility] Hematocrit [Volume Fraction] of Blood [facility] Hemoglobin [Mass/vol ume] in Blood [facility] Leukocytes [#/volume ] corrected for nucleated erythrocytes in Blood by Automated coun [facility] Leukocytes [#/volume ] in Blood [facility] Lymphocytes [#/volum e] in Blood by Automated count [facility] Lymphocytes/100 leukocytes in Blood by Automated count [facility] MCH [Entitic mass] b y Automated count [facility] MCHC [Mass/volume] b y Automated count [facility] MCV [Entitic volume] by Automated count [facility] Monocytes [#/volume] in Blood by Automated count [facility] Monocytes/100 leukoc ytes in Blood by Automated count [facility] Neutrophils [#/volum e] in Blood by Automated count [facility] Neutrophils/100 leukocytes in Blood by Automated count [facility] Nucleated erythrocyt es [Presence] in Blood by Automated count [facility] Patient Education Counts Include 234 Beds At The [facility] Bone Marrow Aspiration or Biopsy [facility] Work Phone: Platelet mean volume [Entitic volume] in Blood by Automated count [facility] Immunizations Immunization Date Immunization Notes Care Provider Fa cility 12-25-2021 tetanus toxoid, redu zak diphtheria toxoid, and acellular pertussis vaccine, adsorbed James Pereira Work Phone: [facility] 09-11-2020 influenza virus vacc ine, unspecified formulation Jamesavril Pereira Work Phone: [facility] 250 DO Work Phone: 09-08-2020 Fluzone QIV High-Dos e 65YR+ [facility] 09-08-2020 influenza virus vacc ine, unspecified formulation Not Ref Prov [facility] 10-14-2019 influenza, high dose seasonal, preservative-free [facility] 07-24-2017 pneumococcal polysaccharide vaccine, 23 valent James Jasso [place] Work Phone: [facility] 250 DO Work Phone: 08-28-2015 influenza, high dose seasonal, preservative-free James Pereira Work Phone: [facility] 250 DO Work Phone: influenza virus vacc ine, unspecified formulation James Pereira Work Phone: [facility] 250 DO Work Phone: Comment on above: Aug 20122012 Payers Date Payer Category Payer Self-pay [id number] 2023 Medicare [id number] 2023 Private Health Insurance [id number] 1959 Private Health Insurance [id number] 1950 Unknown [id number] 1950 Unknown [id number] 1950 Unknown [id number] 1950 Unknown [id number] 1950 Unknown [id number] 1950 Unknown [id number] 1950 Unknown [id number] 1950 Unknown [id number] 1950 Unknown [id number] Medicare [id number] Private Health Insurance [id number] Private Health Insurance A[employer]na [facility] PFFS 1 [id number] Unknown [employer]ET[employer] Unknown [id number] Social History Date Type Detail Facility Start: 10-02-2020 End: 04-16-2022 Tobacco smoking status TXIS Ex-smoker (finding) [facility] Work Phone: Start: 1950 Sex Assigned At Female F [facility] Start: 01-15-2021 End: 12-17-2023 No illicit drug use No illicit drug use [place] [address] DO Work Phone: Comment on above: Quit 1993; 4 cups tea daily; Start: 01-15-2021 End: 12-17-2023 Sex Assigned At [employer] Other History of tobacco use Current smoker [facility] Start: 07-05-2018 End: 12-02-2023 Tobacco use and exposure Smokeless tobacco non-user [facility] Start: 01-15-2021 Alcohol intake 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) [facility] Housing Instability Unknown [facility] Start: 1950 End: 1950 Sex Assigned At Not on file [facility] Start: 12-02-2023 Tobacco smoking stat us TXIS Never smoked tobacco [facility] History of tobacco use Passive smoker [facility] Start: 12-17-2023 Alcohol intake Lifetime non-d rony (finding) [facility] Start: 11-12-2023 Alcohol Comment caffeine intak e: 1-2 cups per day (pepsi, ice tea) [facility] Medical Equipment Procedure Code Equipment Code Equipment Original Text Equipment Identifier Dates FDA Start: 10-13-2019 [id number] FDA Start: 10-13-2019 [id number] FDA Start: 10-13-2019 CL CLOSURE DEVIC E [...] steroids. I left message as no answer. [facility] Work Phone: 12-30-2023 Miscellaneous Notes I called [...] rx. Please advise. documented in this encounter [facility] 12-29-2023 Telephone encounter Note Called patient to reschedule EMG tomorrow due to no tech in office. Patient states that she has four days left of steroid and has no more refill. Wanted to let Dr. Ramirez know and wasn't sure if she needed another rx. Please advise. [facility] 12-27-2022 Note PROCEDURE: XR HAND L T [...] by: RODERICK ESTRELLA Date: 2022-12-27 15:58 [facility] 12-27-2022 Note PROCEDURE: XR HAND L T [...] by: RODERICK ESTRELLA Date: 2022-12-27 15:58 [facility] 10-12-2021 Evaluation note Encounter Date Diagnosis Assessment [...] Patient care instructions given in writting by [facility] At Home document. [employer] Other Evaluation note* Diagnosis Iron deficiency anemia due to chronic blood loss Iron deficiency anemia secondary to blood loss (chronic) Idiopathic progressive neuropathy documented in this encounter [facility] HealthcareEvaluation noteNo assessment [facility] Work Phone: Hisjbyu general Narrative - Reported* Type Description Date Medical History hypertension Medical History chronic kidney disease stage 3 Surgical History gall bladder Surgical History appendectomy Surgical History knee replacement, left Surgical History HEART CATH WITH STENT PLACEMENT X1 Hospitalization History see above Hospitalization History URINARY TRACT INFECTION 05/2020 Hospitalization History BLOOD PRESSURE ISSUES [employer] Other History of Present illness Narrative* The [...] medication regimen. She denies medication side effects. [place] [address] DO Work Phone: History of Present illness [...] diet and weight loss were again advocated. [facility] 600 DO Work Phone: InstructionsNot on filedocumented in this encounter [facility] Summary Purpose Family History No [...] pain. * Patient was recently hospitalized at [facility]. The patient was seen in Cardiology consult with subsequent cardiovascular management by [facility]. Hospitalization records have been reviewed. * Reason for Cardiology Consultation: ACS * Consulting Radiologic Electronic Specialist: Dr. Contreras * Cardiovascular testing: cardiac cath [...] section and content) DATE CREATED AUTHOR 05/19/2018 [facility] DATE CREATED AUTHOR AUTHOR'S ORGANIZ ATION 12/29/2022 [facility] DATE CREATED AUTHOR AUTHOR'S ORGANIZ ATION 08/28/2023 [employer] DATE CREATED AUTHOR AUTHOR'S ORGANIZ ATION 10/07/2023 [facility] DATE CREATED AUTHOR AUTHOR'S ORGANIZ ATION 11/24/2023 [facility] DATE CREATED AUTHOR AUTHOR'S ORGANIZ ATION 01/07/2024 [facility] DATE CREATED AUTHOR AUTHOR'S ORGANIZ ATION 01/22/2024 [facility] Specialists EPIC REASON FOR VISIT (unrecogniz ed section and content) #13 NOT VACCINATED, NO POS C OVID EXP, COUGH, CONGESTION, FEVER Care Teams (unrecognized sec tion and content) 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 [facility] [employer] [facility]. provides no warranty or guarantee of the accuracy or completeness of information in this document.
[2024-01-25 08:12] LABS: Basophils Percent Auto 0.3 % (0.2-2.0); Eosinophils Percent Auto 0.5 % (0.9-7.0); Hematocrit 28.8 % (36.0-48.0); Hemoglobin 8.9 g/dL (12.0-16.0); Immature Granulocytes Abs Auto 0.07 10^3/uL (0.00-0.03); Immature Granulocytes Pct Auto 1.1 % (0.0-0.5); Lymphocytes Absolute Auto 1.5 10^3/uL (1.2-3.8); Lymphocytes Percent Auto 24.6 % (20.5-60.0); Mean Corpuscular HGB Conc 30.9 g/dL (29.9-35.2); Mean Corpuscular Hemoglobin 26.4 pg (26.7-34.0); Mean Corpuscular Volume 85.5 fL (81.0-99.0); Monocytes Absolute Auto 0.7 10^3/uL (0.3-0.8); Monocytes Percent Auto 11.5 % (1.7-12.0); Neutrophils Absolute Auto 3.8 10^3/uL (1.4-6.5); Platelet Count 129 10^3/uL (150-450); Red Blood Count 3.37 10^6/uL (4.20-5.40); White Blood Count 6.1 10^3/uL (4.0-11.0)
--- NOTE | 2024-01-25 08:14 | CT_ITS ---
The [address] [address] Patient Name: BELLE JEONG MRN: [id number] date: 1950 Sex: F Assigned Patient Location: Current Patient Location: Accession/Order Number: [id number] Exam Date: 01/25/2024 10:32 Report Date: 01/25/2024 11:25 At the request of: ANGELA WILLETT Procedure: CT abdomen pelvis wo con EXAM: CT abdomen pelvis wo con HISTORY: acute abd abdominal pain COMPARISON: None TECHNIQUE: CT abdomen and CT pelvis studies were performed without the use of intravenous contrast. Multiple axial images were obtained. Reformatted coronal and sagittal images were obtained and reviewed. FINDINGS: Mild pleural thickening in the left lung base posteriorly. Small calcified granuloma in the right lower lung field. Views of the liver demonstrate area of mild decreased attenuation in the left lobe measuring approximately 3.6 x 3.3 cm on series 3 axial image 51 most likely representing complex cyst or hemangioma. Other possibility cannot be entirely excluded. Follow-up ultrasound study of the liver may be considered for further evaluation. No obvious splenic mass. Patient appears to be status post cholecystectomy. Adrenal glands appear grossly unremarkable. Pancreas appears grossly unremarkable. There is grossly unremarkable. Bowel loops appear grossly unremarkable. Atherosclerotic calcifications within portions of the abdominal aorta and visceral branches. No evidence of aneurysm. No evidence of adenopathy in the retroperitoneum. Moderate bilateral renal cortical thinning greater on the right with lobulated contour compatible with scarring. No obvious renal mass. No evidence of renal or ureteral calculus. Mild prominence of the left renal pelvis without ureteral prominence which may be related to some degree of chronic ureteropelvic junction obstruction. Pelvis: No evidence of ureteral or bladder calculus. No evidence of obstructive uropathy. No obvious bladder mass or wall thickening. There is moderate distention of the bladder which can be correlated clinically. Patient appears status post hysterectomy. No obvious adnexal mass. Perirectal fat planes appear grossly unremarkable. Bowel loops appear grossly unremarkable. Atherosclerotic calcifications within portions of the iliofemoral arteries. No evidence of aneurysm. No evidence of adenopathy. Calcification in the expected location of the appendix with associated mild soft tissue prominence though not convincingly related to the appendix, this may be related to postoperative dystrophic calcification secondary to prior appendectomy. Correlate with history. Findings are not typical for appendicitis. Possibility of a calcified granuloma in the region may be considered. Finding is noted on series 3 axial image 77 and series 5 coronal image 46. Findings are unlikely for acute appendicitis, correlate with history. The finding measures approximately 2.1 x 1.7 x 1.5 cm. Generalized osteopenia. Moderate degenerative changes visualized lower dorsal spine with mild to moderate degenerative changes in the lumbar spine. CT/CT abdomen pelvis wo con IMPRESSION: CT abdomen and CT pelvis studies demonstrate moderately distended bladder, correlate clinically. Chronic changes of the kidneys as noted. No evidence of obstructive uropathy. Consider chronic ureteropelvic junction obstruction on the left. Likely complex cyst or hemangioma in the left lobe of the liver. The possibility would be less likely. Follow-up ultrasound study of the liver may be considered for further evaluation. Mild soft tissue prominence with associated calcification in the expected location of the appendix though not convincingly representing the appendix and possibly separate from the cecum. This may represent nonspecific area of dystrophic calcification related to prior appendectomy or possibly calcified granuloma. Finding would be unlikely for acute appendicitis. Correlate with history. Follow-up as needed. Electronically authenticated by: AMANDA MCCANN Date: 01/25/2024 11:25
--- NOTE | 2024-01-25 08:17 | P.HP_ITS ---
H&P: HPI History of Present Illness Chief complaint: Fall, LT FLANK PAIN ACUTE KIDNEY INJURY ELEV DDIME Narrative: Patient presents to the emergency room after a slide out of a chair, no significant injury at that time but the patient has had progressive symptoms. She is to be sent to rehab for a type of demyelinating spinal column disorder. Currently taking Suboxone for pain medication. Pain deteriorated overnight. Patient is admitted for workup and treatment of same I saw patient in room she is very uncomfortable. Try to isolate where the pain is coming from she states all over. See abdominal exam below Review of Systems ROS Status of ROS 10 or more systems reviewed and unremark able except as noted in history and below [facility] Medical History (Updated 01/25/24 @ 10:17 by Franck Guo MD) Lumbar degenerative disc disease ?M51.36 - Other intervertebral disc degeneration, lumbar region (ICD-10) Stage 3a chronic kidney disease (CKD) ?N18.31 - Chronic kidney disease, stage 3a (ICD-10) Opioid use disorder in remission ?F11.91 - Opioid use, unspecified, in remission (ICD-10) Acute on chronic diastolic heart failure ?I50.33 - Acute on chronic diastolic (congestive) heart failure (ICD-10) Hypoxia ?R09.02 - Hypoxemia (ICD-10) COPD (chronic obstructive pulmonary disease) ?J44.9 - Chronic obstructive pulmonary disease, unspecified (ICD-10) Iron deficiency anemia ?D50.9 - Iron deficiency anemia, unspecified (ICD-10) CAD (coronary atherosclerotic disease) ?I25.10 - Atherosclerotic heart disease of [place] coronary artery without angina pectoris (ICD-10) Hypertension ?I10 - Essential (primary) hypertension (ICD-10) Neuropathy ?G62.9 - Polyneuropathy, unspecified (ICD-10) Anemia requiring transfusions ?D64.9 - Anemia, unspecified (ICD-10) Acute on chronic congestive heart failure ?I50.9 - Heart failure, unspecified (ICD-10) CKD (chronic kidney disease) stage 3, GFR 30-59 ml/min ?N18.30 - Chronic kidney disease, stage 3 unspecified (ICD-10) Chronic respiratory failure with hypoxia ?J96.11 - Chronic respiratory failure with hypoxia (ICD-10) Melanoma ?C43.9 - Malignant melanoma of skin, unspecified (ICD-10) History of illicit drug use ?F19.91 - Other psychoactive substance use, unspecified, in remission (ICD- 10) Kidney disease ?N28.9 - Disorder of kidney and ureter, unspecified (ICD-10) CHF (congestive heart failure) ?I50.9 - Heart failure, unspecified (ICD-10) Heart attack ?I21.9 - Acute myocardial infarction, unspecified (ICD-10) Anemia ?D64.9 - Anemia, unspecified (ICD-10) Anemia ?D64.9 - Anemia, unspecified (ICD-10) CHF (congestive heart failure) ?I50.9 - Heart failure, unspecified (ICD-10) Surgical History H/O: hysterectomy ?Z90.710 - Acquired absence of both cervix and uterus (ICD-10) History of cholecystectomy ?Z90.49 - Acquired absence of other specified parts of digestive tract (ICD- 10) History of total left knee replacement ?Z96.652 - Presence of left artificial knee joint (ICD-10) Hx of appendectomy ?Z90.49 - Acquired absence of other specified parts of digestive tract (ICD- 10) History of heart artery stent ?Z95.5 - Presence of coronary angioplasty implant and graft (ICD-10) Family History Father Family history of CHF (congestive heart failure) Family history of diabetes mellitus Family history of hypertension Sister Family history of myocardial infarction Family history of hypertension Mother Family history of COPD (chronic obstructive pulmonary disease) Family history of hypertension Daughter Family history of diabetes mellitus Social History Within the past year, how often did you have a drink containing alcohol: never Within the past year, how many standard drinks containing alcohol did you have on a typical day: 1 or 2 Within the past year, how often did you have six or more drinks on one occasion: never Total score: 0 Score interpretation: A score less than 3 is consistent with normal alcohol consumption. Smoking status: Former smoker Non-prescribed substance use: former substance user, amphetamines/methamphetamines and opiods/painkillers Non-prescribed substance use details: states has been clean for 6 months Previous occupational history: Retired Known occupational exposures/hazards: No Highest level of school completed/degree received: 11th grade Are you now , , , , never or living with a partner: In a typical week, how many times do you talk on the telephone with family, friends, or neighbors: 3 or more times per week How often do you get together with friends or relatives: 3 or more times per week How often do you attend buddhist or latter day services: never Do you belong to any clubs or organizations such as buddhist groups unions, [employer] or [employer] groups, or school groups: no Total score: 1 Score interpretation: A score of less than or equal to 1 indicates the most socially isolated. Little interest or pleasure in doing things: not at all Feeling down, depressed, or hopeless: not at all Feel stressed/tense/nervous/anxious/difficulty sleeping: not at all Gender Identity: female Meds Home Medications and Allergies Home Medications Medication Instructions Recorded Confirmed Type buprenorphine 8 mg-naloxone 2 mg 1.5 film sublingual Q24H 08/15/23 01/25/24 History sublingual film metoprolol tartrate 25 mg tablet 25 mg PO Q12H 08/15/23 01/25/24 History valsartan 80 mg tablet 80 mg PO DAILY 08/15/23 01/25/24 History ferrous sulfate 325 mg (65 mg 325 mg PO DAILY 30 days #30 tabs 08/18/23 01/25/24 Rx iron) tablet (Iron (ferrous sulfate)) spironolactone 25 mg tablet 25 mg PO QD 30 days #30 tabs 08/18/23 01/25/24 Rx amlodipine 5 mg tablet 5 mg PO DAILY 11/18/23 01/25/24 History furosemide 20 mg tablet 20 mg PO DAILY 11/18/23 01/25/24 History gabapentin 100 mg capsule 100 mg PO TID #90 caps 11/23/23 01/25/24 Rx albuterol sulfate 90 mcg/actuation 2 puff inhalation Q4H PRN 12/12/23 01/25/24 History aerosol inhaler shortness of breath or wheezing Allergies Allergy/AdvReac Type Severity Reaction Status Date / Time No Known Drug Allergies Allergy Verified 01/24/24 22:42 Exam Constitutional Vital Signs, click to edit/add: Last Vital Signs Temp 98.2 F 01/25/24 07:52 Pulse 95 H 01/25/24 04:50 Resp 24 01/25/24 07:52 BP 167/75 H 01/25/24 07:52 Pulse Ox 97 01/25/24 07:52 O2 Del Method Room Air 01/25/24 07:52 Documenting provider has reviewed patient's vital signs: yes Common normals: apparent distress (Moderate to severe painful distress) HENMT Common normals: normocephalic Chest Common normals: inspection of chest normal and palpation of chest normal Respiratory Common normals: normal respiratory effort and no retractions Cardio Common normals: regular rate and regular rhythm GI Common normals: Normal to inspection, nondistended, normoactive bowel sounds present and soft to palpation; tender (Diffuse tenderness with rebound tenderness) Back & Pelvis Common normals: no CVA tenderness Results Labs Labs: Short CBC 01/24/24 01/25/24 Range/Units 23:00 07:25 WBC 5.2 6.1 (4.0-11.0) 10^3/uL Hgb 10.2 L 8.9 L (12.0-16.0) g/dL Hct 35.1 L 28.8 L (36.0-48.0) % Plt Count 118 L 129 L (150-450) 10^3/uL BMP 01/24/24 01/25/24 23:00 02:24 Sodium 141 141 Potassium 4.6 4.9 Chloride 106 107 Carbon Dioxide 24.9 24.5 BUN 49.0 H 53.0 H Creatinine 1.85 H 1.98 H Glucose 110 H 107 H Calcium 9.0 8.4 L Cardiac Enzymes 01/24/24 Range/Units 23:00 Total Creatine Kinase 23 L (26-192) U/L Liver Function 01/24/24 Range/Units 23:00 Total Bilirubin 0.7 (0.2-1.0) mg/dL AST 21 (15-37) U/L ALT 35 (14-59) U/L Alkaline Phosphatase 65 (46-116) U/L Albumin 3.0 L (3.4-5.0) g/dL Urine 01/25/24 Range/Units 00:20 Urine Color Yellow (YELLOW) Urine Clarity Clear (CLEAR) Urine pH 6.5 (5.0-9.0) Ur Specific [place] 1.020 (1.005-1.025) Urine Protein 100 A (NEG/TRACE) mg/dL Urine Glucose (UA) 100 A (NEGATIVE) mg/dL Assessment and Plan Assessment and Plan (1) Adult failure to thrive: (2) Acute kidney injury superimposed on chronic kidney disease: (3) Rhinovirus infection: (4) Acute abdomen: Plan Sinus tachycardia, uncontrolled hypertension, acute kidney injury secondary to dehydration, complicated by rhinovirus illness. IV hydration Acute abdomen-check CT scan without contrast secondary to elevated creatinine, start IV antibiotics Demyelinating disorder of the spine with elevated CRP-try high-dose steroids for improved pain control, avoiding narcotics secondary to being on Suboxone. Thrombocytopenia-monitor daily Uncontrolled hypertension-IV hydralazine as needed Acute kidney injury with creatinine 138% above baseline. Baseline is 1.44 before illness started-IV hydration With the severity of her symptoms, medically necessary treatment would likely span [address] patient in inpatient status Urinary Catheter Management Urinary Catheter Management Straight: Cath placed during this visit: yes Urethral indwelling: No Insertion date: 01/25/24 Insertion time: 00:27
--- NOTE | 2024-01-25 08:21 | CA_ITS ---
Patient Name: BELLE JEONG MR#: [id number] : 1950 Exam Date: 01/25/2024 Ordering Doctor: DR Franck Gou . ECHOCARDIOGRAM REPORT PROCEDURE: CA ECHO LIMITED INDICATIONS: Elevated BNP, diastolic heart failure, COPD, hypertension, [place], stent COMPARISON: None. DESCRIPTION: Limited ECHOCARDIOGRAM Real-time transthoracic echocardiography with 2D and M-mode performed. QUALITY: Technical quality was adequate. 63 , 184#, BSA 1.87 m2 LEFT VENTRICLE: Normal chamber size. Mild concentric left ventricular hypertrophy. LV EF: Global left ventricular systolic function is difficult to assess but appears hyperdynamic; visually estimated ejection fraction 65 to 70%. Unable to assess regional wall motion abnormalities. LEFT ATRIUM: Moderate dilatation. RIGHT ATRIUM: Normal chamber size. RIGHT VENTRICLE: Normal chamber size. Normal systolic function. TRICUSPID VALVE: Normal mobility and thickness. MITRAL VALVE: Normal mobility and thickness. Mild mitral annular calcification. AORTIC VALVE: Normal trileaflet appearance. Mildly calcified aortic valve. AORTIC ROOT: Inadequately seen. PULMONIC VALVE: Not well visualized. PERICARDIUM: Anterior free space; trivial effusion versus fat pad. IVC: Collapses with inspirations. CONCLUSION: 1. Global left ventricular systolic function is difficult to assess but appears hyperdynamic; visually estimated ejection fraction 65 to 70% 2. Normal right ventricular size and systolic function 3. The left atrium appears dilated 4. Anterior free space; trivial effusion versus A limited echocardiogram was performed Adult Echocardiography Procedure Report Left Ventricle LVEDD (3.7 - 5.6 cm): 4.56 cm LVESD (2.2 - 4.0 cm): 3.04 cm LVIVS thickness (0.6 - 1.2 cm): 1.34 cm LVPW thickness (0.5 - 1.0 cm): 1.24 cm LVOT Diameter 2.33 cm Left Atrium LA Volume Index (2D A2C): 48.97 ml/m2 Left Atrium Systolic Dimension: 4.40 cm Mitral Valve Right Ventricle Aorta AO Root Diam: 3.59 cm Aortic Valve Tricuspid Valve Pulmonic Valve Right Atrium Right Atrium Systolic Pressure: 35.70 ml, 35.70 ml Dictated by: Jaylon Del Real M.D. on 01/25/2024 at 13:55 Approved by: Jaylon Del Real M.D. on 01/25/2024 at 13:59
[2024-01-25 08:22] LABS: Anion Gap 19.4; BUN Creatinine Ratio 27.1; Calcium 8.3 mg/dL (8.5-10.1); Carbon Dioxide 18.3 mmol/L (21.0-32.0); Chloride 106 mmol/L (98-107); Estimated GFR (African America 31 (>=60); Estimated GFR (Non-African Ame 26 (>=60); Glucose 98 mg/dL (74-106); Potassium 4.7 mmol/L (3.5-5.1); Sodium 139 mmol/L (136-145)
[2024-01-25 08:24] LABS: C Reactive Protein 3.02 mg/dL (<=0.50)
[2024-01-25 08:44] LABS: Erythrocyte Sedimentation Rate 15 mm/hr (<=30)
[2024-01-25] MEDS: BUPRENORPHINE HCL/NALOXONE HCL 8-2 MG TABLET SUBL 1 TAB SL ×2 (11:10→21:03)
[2024-01-25] MEDS: AMLODIPINE BESYLATE 5 MG TABLET PO (11:10)
[2024-01-25] MEDS: LOSARTAN POTASSIUM 50 MG TABLET PO (11:10)
[2024-01-25] MEDS: ORPHENADRINE 60 MG/ 2 ML VIAL IV ×2 (11:11→21:03)
[2024-01-25] MEDS: METHYLPREDNISOLONE SOD SUCC PF 125 MG/2 ML VIAL 250 MG IVP ×3 (11:11→23:43)
[2024-01-25] MEDS: METOPROLOL TARTRATE 25 MG TABLET PO ×2 (11:11→21:03)
[2024-01-25] MEDS: PANTOPRAZOLE SODIUM 40 MG VIAL IV (11:14)
[2024-01-25] MEDS: PIPERACILLIN SODIUM/TAZOBACTAM 3.375 GM in 0.9 % SODIUM CHLORIDE 50 ML IV ×2 (11:14→21:03)
[2024-01-25] MEDS: FERROUS SULFATE 325 MG TABLET PO (11:16)
--- NOTE | 2024-01-25 12:17 | SWNOTE1 ---
Pt's family was in room. Family included 2 grand-daughters, a daughter, and an aunt. STORM asked if any of them were POA and if there was a POA? Everyone expressed there is no POA. The aunt stated her son has been working on getting things lined up for her. STORM spoke about the ED note stating rehab for pt. The aunt possibly a facility around here, the grand-daughter stood up and came over to STORM and the aunt and she voiced she was calling Oliver (the son) and that is not what he wants and became irritated. At this time she was able to get Oliver on the phone and family was all calm. Oliver voiced he would like pt to get in to the [facility]. He stated Dr. Espana and Dr. Amato have been working together to get pt on some kind of medication to help her, unsure of medication. He stated those physicians can just come to the [facility] to see her there. STORM explained to all family that it is a process and it is not that simple. STORM then recommended we have Dr. Espaan consulted to come see pt while she is here in hospital and see what he recommends. STORM let family know Dr. Amato does not come see pt's here. STORM also asked if pt was on Suboxone. Oliver and family voiced she is. STORM is not sure about Suboxone at facilities, but will find out. Oliver voiced she can just stop that if it prevents her from going to [facility], SW did voice that may not be a good idea for pt. At this time SW let family know SW is going to speak with doctor and nursing in regards to Dr. Espana and will also find out about Suboxone at [facility]. At this time no further questions from family. STORM notified nurse that son is point of contact and updated on rest of information. STORM updated face sheet on chart and highlighted pt's son, Oliver, name and number as first contact. Family is all in agreement with Oliver being 1st contact. STORM sent Dr. Guo a message to see if he would consult Dr. Espana? Order is placed. Dr. Espana is here on Thursday, nursing is aware. ED note, physician notes, face sheet, case management referral report, labs, vitals, nursing notes, PT note, med list, and diagnostic imaging sent to [facility]. Pt is a precert. Will need more information in regards to plan for medication between Dr. Espana and Dr. Amato.
[2024-01-25] MEDS: LACTATED RINGER'S SOLUTION 1,000 ML 100 ML IV ×2 (12:52→22:51)
[2024-01-25] MEDS: ONDANSETRON 4 MG RAPDIS TABLET SL (13:22)
[2024-01-25] MEDS: GABAPENTIN 100 MG CAPSULE PO ×2 (14:09→21:04)
[2024-01-25] MEDS: ACETAMINOPHEN 500 MG TABLET 1000 MG PO (14:09)
--- NOTE | 2024-01-25 14:17 | SWNOTE1 ---
SW went back in to room. Pt was sitting up in chair, using the phone. She expressed for SW to come and that she was calling her grand-daughter to see if she was bringing her food. Once off the phone, SW asked if she knew where she was, pt responded with [facility], SW asked if she knew what month, she started month. SW asked if she knew what year and she stated 2023. Pt is alert and oriented. She voiced she was in so much pain earlier and does not remember SW being in room. She stated she is feeling much better now. SW asked how she has been doing at home, she stated she has declined in past few weeks and her family has been helping her at home. Pt lives with her daughter and 2 grandchildren. Pt does have [employer] coming in currently. SW let pt know that her daughter and 2 grand-daughters were in room earlier along with an aunt. SW asked if there was some family dynamics and she voiced yes. SW asked if she had a Health Care POA and she stated she thinks she did one last year. SW to check and if not, she is open to completing one. SW let her know earlier her family voiced she needs to go to rehab. Pt is agreeable to this and she does want to go to [place]. She stated she has been there in past. SW let her know there are several factors that come in to play. STORM has sent the referral and [facility] is checking in to it and seeing what they can do in regards to Suboxone. SW also let her know we did order for Dr. Espana to see her while she is here. She voiced understanding. At this time pt has not other questions. Pt requested SW order food for her, SW ordered her lunch. Prior to this assessment, during earlier assessment with family, they expressed that pt has [employer] [facility] and the nurse is who recommended she goes to rehab. They have NOT looked into a facility and no calls were made to any facility in [place].
--- NOTE | 2024-01-25 15:31 | CM.NOTE ---
[facility] called for PT notes on pt, faxed PT notes from today. Insurance company requesting PT note.
--- NOTE | 2024-01-25 15:48 | SWNOTE1 ---
STORM completed Health care POA with pt, she appointed her son, Oliver Huerta, to be her POA if she can't make decisions for herself. SW made copy and placed in chart, pt kept original. Pt was on phone with her son and let him know she made him POA. [facility] called and needed PT notes, case management sent them over. STORM let Rachel know it is ok to start precert.
--- NOTE | 2024-01-25 16:09 | SWNOTE1 ---
STORM spoke to Florentino at [facility], concern for pain control. STORM reviewed with Florentino the meds the patient has received for pain. Florentino would like to see pt tomorrow. STORM had received email from [facility] that precert has been started, but after speaking to Florentino, she would like updates in morning and see if pt's pain under control.
--- NOTE | 2024-01-25 16:29 | SWNOTE1 ---
STORM spoke to Dr. Guo and he voiced they did start precert as he spoke to maggy.
[2024-01-26] VITALS (10 sets, daily range): BP systolic 122–151; BP diastolic 51–84; PULSE 69–90; RESP 18–20; TEMP 36.3–36.9; O2SAT 91–95
[2024-01-26] MEDS: PIPERACILLIN SODIUM/TAZOBACTAM 3.375 GM in 0.9 % SODIUM CHLORIDE 50 ML IV ×3 (04:15→20:06)
[2024-01-26 04:47] LABS: Hemoglobin 8.3 g/dL (12.0-16.0); Mean Corpuscular HGB Conc 29.6 g/dL (29.9-35.2); Mean Corpuscular Hemoglobin 26.1 pg (26.7-34.0); Mean Corpuscular Volume 88.1 fL (81.0-99.0); Mean Platelet Volume 9.4 fL (9.5-13.5); Platelet Count 149 10^3/uL (150-450); Red Blood Count 3.18 10^6/uL (4.20-5.40); Red Cell Distribution Width 15.9 % (11.0-15.0); White Blood Count 3.4 10^3/uL (4.0-11.0)
[2024-01-26 05:03] LABS: Erythrocyte Sedimentation Rate 25 mm/hr (<=30)
[2024-01-26] MEDS: PANTOPRAZOLE SODIUM 40 MG VIAL IV (05:05)
[2024-01-26] MEDS: GABAPENTIN 100 MG CAPSULE PO ×3 (05:05→20:07)
[2024-01-26 05:17] LABS: Alanine Aminotransferase 58 U/L (14-59); Albumin Globulin Ratio 0.8; Albumin Level 2.6 g/dL (3.4-5.0); Alkaline Phosphatase 58 U/L (46-116); Anion Gap 12.1; Aspartate Amino Transferase 28 U/L (15-37); Bilirubin Total 0.8 mg/dL (0.2-1.0); C Reactive Protein 6.51 mg/dL (<=0.50); Calcium 8.4 mg/dL (8.5-10.1); Chloride 104 mmol/L (98-107); Estimated GFR (African America 40 (>=60); Estimated GFR (Non-African Ame 33 (>=60); Globulin 3.3 g/dL; Glucose 164 mg/dL (74-106); Potassium 5.1 mmol/L (3.5-5.1); Sodium 133 mmol/L (136-145); Total Protein 5.9 g/dL (6.4-8.2)
[2024-01-26 06:40] LABS: Band Neutrophils Absolute 0.5 10^3/uL (0.0-0.3); Lymphocytes Absolute Manual 0.06 10^3/uL (1.20-3.80); Metamyelocytes Absolute Manual 0.03; Monocytes Absolute Manual 0.13 10^3/uL (0.30-0.80); Segmented Neut Absolute Manual 2.68 10^3/uL (1.4-6.5)
[2024-01-26] MEDS: LACTATED RINGER'S SOLUTION 1,000 ML 100 ML IV (07:09)
--- NOTE | 2024-01-26 08:22 | P.PN_ITS ---
Progress Note: Subjective Subjective Interval history: Patient feels much improved, looks very much improved from previous day. Describes no significant back pain or abdominal pain this morning Exam Constitutional Vital Signs, click to edit/add: Last Vital Signs Temp 97.9 F 01/26/24 07:13 Pulse 76 01/26/24 07:13 Resp 20 01/26/24 07:13 BP 151/79 H 01/26/24 07:13 Pulse Ox 92 L 01/26/24 07:13 O2 Del Method Room Air 01/26/24 07:13 Documenting provider has reviewed patient's vital signs: yes Common normals: no apparent distress Chest Common normals: inspection of chest normal Respiratory Common normals: normal respiratory effort and no retractions Cardio Common normals: regular rate and regular rhythm GI Common normals: Normal to inspection, nondistended, normoactive bowel sounds present, soft to palpation and non-tender Progress Note: Objective Labs Labs: Short CBC 01/26/24 Range/Units 04:05 WBC 3.4 L (4.0-11.0) 10^3/uL Hgb 8.3 L (12.0-16.0) g/dL Hct 28.0 L (36.0-48.0) % Plt Count 149 L (150-450) 10^3/uL BMP 01/25/24 01/26/24 07:30 04:05 Sodium 139 133 L Potassium 4.7 5.1 Chloride 106 104 Carbon Dioxide 18.3 L 22.0 BUN 52.0 H 45.0 H Creatinine 1.92 H 1.55 H Glucose 98 164 H Calcium 8.3 L 8.4 L Liver Function 01/26/24 Range/Units 04:05 Total Bilirubin 0.8 (0.2-1.0) mg/dL AST 28 (15-37) U/L ALT 58 (14-59) U/L Alkaline Phosphatase 58 (46-116) U/L Albumin 2.6 L (3.4-5.0) g/dL Progress Note: A&P Assessment and Plan (1) Adult failure to thrive: (2) Acute kidney injury superimposed on chronic kidney disease: (3) Rhinovirus infection: (4) Acute abdomen: Plan Sinus tachycardia, uncontrolled hypertension, acute kidney injury secondary to dehydration, complicated by rhinovirus illness. Overall improved, will saline lock Acute abdomen-CT scan from yesterday unremarkable, patient no longer has abdominal tenderness, uncertain etiology from yesterday. 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 Espana seeing patient for this as an outpatient, continue with steroids but reduce dose Thrombocytopenia-monitor daily Uncontrolled hypertension-IV hydralazine as needed Acute kidney injury with creatinine 138% above baseline on admission. almost back to baseline With the severity of her symptoms, medically necessary treatment would likely span [address] patient in inpatient status Urinary Catheter Management Urinary Catheter Management Straight: Cath placed during this visit: yes Urethral indwelling: No Insertion date: 01/25/24 Insertion time: 00:27
[2024-01-26] MEDS: LOSARTAN POTASSIUM 50 MG TABLET PO (08:41)
[2024-01-26] MEDS: FERROUS SULFATE 325 MG TABLET PO (08:41)
[2024-01-26] MEDS: ORPHENADRINE 60 MG/ 2 ML VIAL IV ×2 (08:41→20:06)
[2024-01-26] MEDS: METOPROLOL TARTRATE 25 MG TABLET PO ×2 (08:41→20:06)
[2024-01-26] MEDS: BUPRENORPHINE HCL/NALOXONE HCL 8-2 MG TABLET SUBL 1 TAB SL ×2 (08:41→20:07)
[2024-01-26] MEDS: SODIUM CHLORIDE 0.9% IV (09:16)
[2024-01-26] MEDS: METHYLPREDNISOLONE SOD SUCC IV (09:16)
[2024-01-26] MEDS: AMLODIPINE BESYLATE 5 MG TABLET PO (09:20)
--- NOTE | 2024-01-26 09:43 | CM.NOTE ---
Rounds made with Dr. Guo. IV steroids to be decreased and awaiting consult from Oncologist. Ms. Huerta verbalizes understanding.
--- NOTE | 2024-01-26 10:07 | CM.NOTE ---
[facility] unable to take patient for skilled therapy, Dr. Guo aware. Called pt's son per her request and he would like to try [facility]. Spoke with [facility] and they are unable to accept pt d/t suboxone.
--- NOTE | 2024-01-26 10:08 | CM.NOTE ---
Called [facility] in [place] (Jenny in admissions) to see if they would be able to accept pt being that she is on Suboxone. Jenny will call or Case Management back.
--- NOTE | 2024-01-26 10:43 | SWNOTE1 ---
[facility] is not able to accept. STORM had messaged case management and [facility] is reviewing referral at this time.
[2024-01-26 11:07] LABS: Hematocrit 27.7 % (36.0-48.0); Immature Granulocytes Abs Auto 0.03 10^3/uL (0.00-0.03); Immature Granulocytes Pct Auto 0.6 % (0.0-0.5); Lymphocytes Absolute Auto 0.5 10^3/uL (1.2-3.8); Lymphocytes Percent Auto 8.8 % (20.5-60.0); Mean Corpuscular HGB Conc 28.9 g/dL (29.9-35.2); Mean Corpuscular Hemoglobin 26.2 pg (26.7-34.0); Mean Corpuscular Volume 90.8 fL (81.0-99.0); Mean Platelet Volume 9.8 fL (9.5-13.5); Monocytes Absolute Auto 0.1 10^3/uL (0.3-0.8); Monocytes Percent Auto 0.9 % (1.7-12.0); Neutrophils Absolute Auto 4.8 10^3/uL (1.4-6.5); Neutrophils Percent Auto 89.7 % (43.0-75.0); Platelet Count 131 10^3/uL (150-450); Red Blood Count 3.05 10^6/uL (4.20-5.40); White Blood Count 5.3 10^3/uL (4.0-11.0)
--- NOTE | 2024-01-26 11:20 | SWNOTE1 ---
[facility] is able to review referral, she will have to bring Suboxone in. to update patient.
--- NOTE | 2024-01-26 11:22 | CM.NOTE ---
Jenny called back from [facility], they would be able to take pt on suboxone as long as she can bring her own medication. Referral then sent to [facility] for review.
[2024-01-26] MEDS: 0.9 % SODIUM CHLORIDE 250 ML 10 ML IV (12:02)
--- NOTE | 2024-01-26 12:04 | PT.DAILY ---
Physical Therapy Daily Note PT Daily Note/Assess Start: 01/26/24 11:59 Freq: Status: Active Protocol: Document 01/26/24 11:59 CASSANDRA (Rec: 01/26/24 12:04 KATASAEL [id number]) Physical Therapy Daily Note/Assessment Time In/Time Out Time In 11:40 Time Out 11:50 Pain In Pain N/A Pain Out Pain N/A Subjective Subjective Seated in BS chair upon arrival. Reports walking a couple feet with OT this morning and it went OK. Denies pain currently. Agreeable to PT. Therapeutic Exercise Time Therapeutic Exercise Minutes (minutes) 4 Therapeutic Exercise Units 0 Therapeutic Exercise Treatment Therapeutic Exercise Treatment Seated bilat LE strengthening/ ROM ex complete in BS chair to improve functional mobility prior to gait/transfer. Therapeutic Activity Time Therapeutic Activity Minutes (minutes) 6 Therapeutic Activity Units 1 Therapeutic Activity Treatment Chair Transfer Ability Minimum Assist Therapeutic Activity Comments Sit>stand to RW from BS chair Gopal with increased time. Pt very shakey and apprehensive pts knees begin to buckle and she needs to sit back in chair . Takes a seated rest break. Reports her legs just feel so weak. Pt agrees to second standing attempt. Sit>stand Gopal with increased time and able to stand statically for 35 sec before needing to sit. Pt remains in BS chair upon completion with call light in reach and needs met. Total Physical Therapy Time Total Therapy Minutes 10 Total Physical Therapy Units 1 Summary Daily Note Summary Better standing tolerance with second attempt. Very weak. Would benefit from SNF to regain strength and endurance to return to PLOF. Moderate fatigue with session today but denies any pain.
--- NOTE | 2024-01-26 12:13 | SWNOTE1 ---
SW updated pt and nurse that [facility] is reviewing referral.
[2024-01-26] MEDS: METHYLPREDNISOLONE SOD SUCC PF 125 MG/2 ML VIAL IVP ×2 (14:18→20:06)
--- NOTE | 2024-01-26 14:21 | SWNOTE1 ---
STORM called Jenny at [facility], left message for her to call STORM back.
--- NOTE | 2024-01-26 15:20 | SWNOTE1 ---
STORM called Jenny from [facility] and she did not answer. STORM called [facility] and asked for the DON. STORM spoke to ROGERIO and voiced that Jenny has not returned email or phone call and checking to see if she knows anything about referral. She voiced she does not. At the same time STORM talking to ROGERIO, Jneny emailed STORM back and she is reviewing referral.
--- NOTE | 2024-01-26 18:14 | P.CN_ITS ---
Consult Note: [facility] Data of Consult Consult date: 01/26/24 Requesting Physician: Franck Guo MD Primary Care Provider: Shaikh Daphne MD Consult Narrative Reason for consult: anemia, thrombocytopenia Narrative: 73 y/o female known to our hematology oncology practice. She was seen by me in mid Nov 2023, due to anemia, abnormal blood counts, renal insufficiency, hypercalcemia, and question of malignancy. She recalls that she has hx of iron infusion 4-5 yrs ago. She was admitted to [facility] 5-6 months ago, with acute Hgb decline. There was some concern for GIB. She did complete upper and lower endoscopy. She was on ASA and prasugrel at the time. She did have pRBC and iron infusions at that time. She had repeat admission to [facility] in Oct 2023. She required 3 unit PRBC. She underwent BM biopsy from our office in mid Dec 2023, which was negative for malignancy or MDS. She was being considered for EPO therapy for anemia of sql ssis developer moni disease. Of note, she is working with neurology (Dr Ramirez) for a demyelinating disorder. She is now admitted with fall, left flank pain, renal insufficiency, elevated D dimer. Patient presents to the emergency room after a slide out of a chair, no significant injury at that time but the patient has had progressive symptoms. She is to be sent to rehab for a type of demyelinating spinal column disorder. Currently taking Suboxone for pain medication. Pain deteriorated overnight. Patient is admitted for workup and treatment of same. She did receive IV steroids, and notes significant improvement when I saw her at bedside today. Her imaging was reviewed. This includes CT abdomen/pelvis. It shows distended bladder, no obstructive uropathy. Complex cyst vs hemangioma in the liver. Pos sible dystrophic calcification in the bowel. She did not appear to have acute process, LAD, or malignancy. She also underwent CT lumbar spine. It shows no acute fracture of vertebral body collapse. She had DJD. At the bedside, she denies major concerns. She is looking forward to being discharged and working with physical therapy at rehab. ECOG PS 2-3. cc:: CC: Franck Guo MD Review of Systems ROS Narrative A comprehensive 10 point review of systems was conducted and is negative other than that reported in the history of present illness. [facility] Medical History (Updated 01/25/24 @ 10:17 by Franck Guo MD) Lumbar degenerative disc disease ?M51.36 - Other intervertebral disc degeneration, lumbar region (ICD-10) Stage 3a chronic kidney disease (CKD) ?N18.31 - Chronic kidney disease, stage 3a (ICD-10) Opioid use disorder in remission ?F11.91 - Opioid use, unspecified, in remission (ICD-10) Acute on chronic diastolic heart failure ?I50.33 - Acute on chronic diastolic (congestive) heart failure (ICD-10) Hypoxia ?R09.02 - Hypoxemia (ICD-10) COPD (chronic obstructive pulmonary disease) ?J44.9 - Chronic obstructive pulmonary disease, unspecified (ICD-10) Iron deficiency anemia ?D50.9 - Iron deficiency anemia, unspecified (ICD-10) CAD (coronary atherosclerotic disease) ?I25.10 - Atherosclerotic heart disease of cahto coronary artery without angina pectoris (ICD-10) Hypertension ?I10 - Essential (primary) hypertension (ICD-10) Neuropathy ?G62.9 - Polyneuropathy, unspecified (ICD-10) Anemia requiring transfusions ?D64.9 - Anemia, unspecified (ICD-10) Acute on chronic congestive heart failure ?I50.9 - Heart failure, unspecified (ICD-10) CKD (chronic kidney disease) stage 3, GFR 30-59 ml/min ?N18.30 - Chronic kidney disease, stage 3 unspecified (ICD-10) Chronic respiratory failure with hypoxia ?J96.11 - Chronic respiratory failure with hypoxia (ICD-10) Melanoma ?C43.9 - Malignant melanoma of skin, unspecified (ICD-10) History of illicit drug use ?F19.91 - Other psychoactive substance use, unspecified, in remission (ICD- 10) Kidney disease ?N28.9 - Disorder of kidney and ureter, unspecified (ICD-10) CHF (congestive heart failure) ?I50.9 - Heart failure, unspecified (ICD-10) Heart attack ?I21.9 - Acute myocardial infarction, unspecified (ICD-10) Anemia ?D64.9 - Anemia, unspecified (ICD-10) Anemia ?D64.9 - Anemia, unspecified (ICD-10) CHF (congestive heart failure) ?I50.9 - Heart failure, unspecified (ICD-10) Surgical History H/O: hysterectomy ?Z90.710 - Acquired absence of both cervix and uterus (ICD-10) History of cholecystectomy ?Z90.49 - Acquired absence of other specified parts of digestive tract (ICD- 10) History of total left knee replacement ?Z96.652 - Presence of left artificial knee joint (ICD-10) Hx of appendectomy ?Z90.49 - Acquired absence of other specified parts of digestive tract (ICD- 10) History of heart artery stent ?Z95.5 - Presence of coronary angioplasty implant and graft (ICD-10) Family History Father Family history of CHF (congestive heart failure) Family history of diabetes mellitus Family history of hypertension Sister Family history of myocardial infarction Family history of hypertension Mother Family history of COPD (chronic obstructive pulmonary disease) Family history of hypertension Daughter Family history of diabetes mellitus Social History Within the past year, how often did you have a drink containing alcohol: never Within the past year, how many standard drinks containing alcohol did you have on a typical day: 1 or 2 Within the past year, how often did you have six or more drinks on one occasion: never Total score: 0 Score interpretation: A score less than 3 is consistent with normal alcohol consumption. Smoking status: Former smoker Non-prescribed substance use: former substance user, amphetamines/methamphetamines and opiods/painkillers Non-prescribed substance use details: states has been clean for 6 months Previous occupational history: Retired Known occupational exposures/hazards: No Highest level of school completed/degree received: 11th grade Are you now , , , , never or living with a partner: In a typical week, how many times do you talk on the telephone with family, friends, or neighbors: 3 or more times per week How often do you get together with friends or relatives: 3 or more times per week How often do you attend religion or adventist services: never Do you belong to any clubs or organizations such as religion groups unions, fraternal or athletic groups, or school groups: no Total score: 1 Score interpretation: A score of less than or equal to 1 indicates the most socially isolated. Little interest or pleasure in doing things: not at all Feeling down, depressed, or hopeless: not at all Feel stressed/tense/nervous/anxious/difficulty sleeping: not at all Gender Identity: female Meds Home Medications and Allergies Home Medications Medication Instructions Recorded Confirmed Type buprenorphine 8 mg-naloxone 2 mg 1.5 film sublingual Q24H 08/15/23 01/25/24 History sublingual film metoprolol tartrate 25 mg tablet 25 mg PO Q12H 08/15/23 01/25/24 History valsartan 80 mg tablet 80 mg PO DAILY 08/15/23 01/25/24 History ferrous sulfate 325 mg (65 mg 325 mg PO DAILY 30 days #30 tabs 08/18/23 01/25/24 Rx iron) tablet (Iron (ferrous sulfate)) spironolactone 25 mg tablet 25 mg PO QD 30 days #30 tabs 08/18/23 01/25/24 Rx amlodipine 5 mg tablet 5 mg PO DAILY 11/18/23 01/25/24 History furosemide 20 mg tablet 20 mg PO DAILY 11/18/23 01/25/24 History gabapentin 100 mg capsule 100 mg PO TID #90 caps 11/23/23 01/25/24 Rx albuterol sulfate 90 mcg/actuation 2 puff inhalation Q4H PRN 12/12/23 01/25/24 History aerosol inhaler shortness of breath or wheezing Allergies Allergy/AdvReac Type Severity Reaction Status Date / Time No Known Drug Allergies Allergy Verified 01/24/24 22:42 Exam Narrative Exam Narrative: Documenting provider has reviewed patient's vital signs: yes Common normals: apparent distress (Moderate to severe painful distress) [facility] Common normals: normocephalic Chest Common normals: inspection of chest normal and palpation of chest normal Respiratory Common normals: normal respiratory effort and no retractions Cardio Common normals: regular rate and regular rhythm GI Common normals: Normal to inspection, nondistended, normoactive bowel sounds present and soft to palpation; tender (Diffuse tenderness with rebound tenderness) Back & Pelvis Common normals: no CVA tenderness Constitutional Vital Signs, click to edit/add: Last Vital Signs Temp 98.1 F 01/26/24 15:47 Pulse 77 01/26/24 15:47 Resp 20 01/26/24 15:47 BP 122/51 01/26/24 15:47 Pulse Ox 93 L 01/26/24 15:47 O2 Del Method Room Air 01/26/24 15:47 Results Labs Labs: Short CBC 01/26/24 01/26/24 Range/Units 04:05 11:01 WBC 3.4 L 5.3 (4.0-11.0) 10^3/uL Hgb 8.3 L 8.0 L (12.0-16.0) g/dL Hct 28.0 L 27.7 L (36.0-48.0) % Plt Count 149 L 131 L (150-450) 10^3/uL BMP 01/26/24 04:05 Sodium 133 L Potassium 5.1 Chloride 104 Carbon Dioxide 22.0 BUN 45.0 H Creatinine 1.55 H Glucose 164 H Calcium 8.4 L Liver Function 01/26/24 Range/Units 04:05 Total Bilirubin 0.8 (0.2-1.0) mg/dL AST 28 (15-37) U/L ALT 58 (14-59) U/L Alkaline Phosphatase 58 (46-116) U/L Albumin 2.6 L (3.4-5.0) g/dL Assessment and Plan Assessment and Plan (1) Adult failure to thrive: (2) Acute kidney injury superimposed on chronic kidney disease: (3) Rhinovirus infection: (4) Acute abdomen: Plan 73 y/o female known to our hematology oncology practice. She was seen by me in mid Nov 2023, due to anemia, abnormal blood counts, renal insufficiency, hypercalcemia, and question of malignancy. She did undergo BM biospy in Dec 2023, negative for malignancy or MDS. Impression: 1. Anemia, likely related to chronic disease / renal disease / inflammation 2. Mild thrombocytopenia 3. SHANKAR on CKD 4. Acute abdomen, now resolved 5. Failure to thrive 6. Back pain 7. Rhinovirus illness 8. Possible demyelinating disorder, neurology managing PLAN: - labs and imaging reviewed. Imaging shows no acute process, LAD, malignancy - bone marrow recently completed in Dec 2023, and negative for clonal stem cell disorder or MDS - she is following with neurology, Dr Ramirez, for her demyelinating disorder (not heme onc). I defer Rx to their expertise. - If neurology desires trial of IVIG or other treatment, this can be given at our infusion center. - steroids per neurology / hospitalist team - she would be a candidate for EPO therapy from our office, and we will discuss this in coming weeks, as an outpt Thank you for the consult. We will follow along with you. Mary Espana MD Hematology Oncology Face to face time: 55 mins
[2024-01-27] VITALS (7 sets, daily range): BP systolic 104–169; BP diastolic 58–85; PULSE 64–80; RESP 18; TEMP 36.1–36.7; O2SAT 93–97
[2024-01-27] MEDS: PIPERACILLIN SODIUM/TAZOBACTAM 3.375 GM in 0.9 % SODIUM CHLORIDE 50 ML IV (03:15)
[2024-01-27] MEDS: METHYLPREDNISOLONE SOD SUCC PF 125 MG/2 ML VIAL IVP ×2 (03:15→08:49)
[2024-01-27] MEDS: ACETAMINOPHEN 500 MG TABLET 1000 MG PO (03:21)
[2024-01-27 04:57] LABS: Hematocrit 25.7 % (36.0-48.0); Hemoglobin 7.7 g/dL (12.0-16.0); Immature Granulocytes Abs Auto 0.06 10^3/uL (0.00-0.03); Lymphocytes Absolute Auto 0.3 10^3/uL (1.2-3.8); Lymphocytes Percent Auto 5.2 % (20.5-60.0); Mean Corpuscular Hemoglobin 26.5 pg (26.7-34.0); Mean Corpuscular Volume 88.3 fL (81.0-99.0); Mean Platelet Volume 9.6 fL (9.5-13.5); Monocytes Absolute Auto 0.1 10^3/uL (0.3-0.8); Monocytes Percent Auto 1.9 % (1.7-12.0); Neutrophils Absolute Auto 5.3 10^3/uL (1.4-6.5); Neutrophils Percent Auto 91.9 % (43.0-75.0); Platelet Count 157 10^3/uL (150-450); Red Blood Count 2.91 10^6/uL (4.20-5.40); Red Cell Distribution Width 15.5 % (11.0-15.0); White Blood Count 5.8 10^3/uL (4.0-11.0)
[2024-01-27 05:12] LABS: Erythrocyte Sedimentation Rate 7 mm/hr (<=30)
[2024-01-27] MEDS: GABAPENTIN 100 MG CAPSULE PO ×3 (05:14→20:01)
[2024-01-27 05:26] LABS: Alanine Aminotransferase 47 U/L (14-59); Albumin Globulin Ratio 0.8; Albumin Level 2.5 g/dL (3.4-5.0); Alkaline Phosphatase 52 U/L (46-116); Anion Gap 9.3; Aspartate Amino Transferase 17 U/L (15-37); BUN Creatinine Ratio 26.9; Bilirubin Total 0.4 mg/dL (0.2-1.0); Calcium 8.4 mg/dL (8.5-10.1); Carbon Dioxide 21.9 mmol/L (21.0-32.0); Chloride 105 mmol/L (98-107); Estimated GFR (African America 38 (>=60); Estimated GFR (Non-African Ame 32 (>=60); Globulin 3.1 g/dL; Glucose 150 mg/dL (74-106); Potassium 4.2 mmol/L (3.5-5.1); Sodium 132 mmol/L (136-145); Total Protein 5.6 g/dL (6.4-8.2)
[2024-01-27] MEDS: PANTOPRAZOLE SODIUM 40 MG VIAL IV (05:38)
[2024-01-27] MEDS: FERROUS SULFATE 325 MG TABLET PO (08:19)
[2024-01-27] MEDS: AMLODIPINE BESYLATE 5 MG TABLET PO (08:19)
[2024-01-27] MEDS: METOPROLOL TARTRATE 25 MG TABLET PO ×2 (08:19→20:01)
[2024-01-27] MEDS: BUPRENORPHINE HCL/NALOXONE HCL 8-2 MG TABLET SUBL 1 TAB SL ×2 (08:19→20:01)
[2024-01-27] MEDS: LOSARTAN POTASSIUM 50 MG TABLET PO (08:19)
[2024-01-27] MEDS: ORPHENADRINE 60 MG/ 2 ML VIAL IV ×2 (08:49→20:01)
--- NOTE | 2024-01-27 09:10 | P.PN_ITS ---
Progress Note: Subjective Subjective Interval history: Patient continues to feel improved. Exam Constitutional Vital Signs, click to edit/add: Last Vital Signs Temp 97.6 F 01/27/24 08:00 Pulse 80 01/27/24 08:00 Resp 18 01/27/24 03:37 BP 169/85 H 01/27/24 08:00 Pulse Ox 94 L 01/27/24 08:00 O2 Del Method Room Air 01/27/24 08:00 Documenting provider has reviewed patient's vital signs: yes Common normals: no apparent distress Chest Common normals: inspection of chest normal Respiratory Common normals: normal respiratory effort and no retractions Cardio Common normals: regular rate and regular rhythm GI Common normals: Normal to inspection, nondistended, normoactive bowel sounds present, soft to palpation and non-tender Progress Note: Objective Labs Labs: Short CBC 01/26/24 01/27/24 Range/Units 11:01 03:58 WBC 5.3 5.8 (4.0-11.0) 10^3/uL Hgb 8.0 L 7.7 L (12.0-16.0) g/dL Hct 27.7 L 25.7 L (36.0-48.0) % Plt Count 131 L 157 (150-450) 10^3/uL BMP 01/27/24 03:58 Sodium 132 L Potassium 4.2 Chloride 105 Carbon Dioxide 21.9 BUN 43.0 H Creatinine 1.60 H Glucose 150 H Calcium 8.4 L Liver Function 01/27/24 Range/Units 03:58 Total Bilirubin 0.4 (0.2-1.0) mg/dL AST 17 (15-37) U/L ALT 47 (14-59) U/L Alkaline Phosphatase 52 (46-116) U/L Albumin 2.5 L (3.4-5.0) g/dL Progress Note: A&P Assessment and Plan (1) Adult failure to thrive: (2) Acute kidney injury superimposed on chronic kidney disease: (3) Rhinovirus infection: (4) Acute abdomen: Plan Sinus tachycardia, uncontrolled hypertension, acute kidney injury secondary to dehydration, complicated by rhinovirus illness. Overall improved, will saline lock Acute abdomen-CT scan from yesterday unremarkable, patient no longer has abdominal tenderness, uncertain etiology from yesterday. 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 Thrombocytopenia-monitor daily Uncontrolled hypertension-IV hydralazine as needed Acute kidney injury with creatinine 138% above baseline on admission. almost back to baseline Continue with currently medically necessary treatment as outlined above, working on placement. Urinary Catheter Management Urinary Catheter Management Straight: Cath placed during this visit: yes Urethral indwelling: No Insertion date: 01/25/24 Insertion time: 00:27
--- NOTE | 2024-01-27 09:13 | SWNOTE1 ---
STORM received email from Jenny at [facility] and they are able to accept and asked if we do precerts or if they start them. STORM advised that they do precert, [facility] does not. STORM sent Jenny email to confirm when they start precert.
--- NOTE | 2024-01-27 09:40 | SWNOTE1 ---
Jenny is starting precert.
--- NOTE | 2024-01-27 10:50 | CM.NOTE ---
Rounds made with Dr. Guo. Dr. Guo to recheck a CBC @ noon today as H/H decreasing. Ms. Huerta verbalizes understanding.
--- NOTE | 2024-01-27 11:08 | PT.DAILY ---
Physical Therapy Daily Note PT Daily Note/Assess Start: 01/26/24 11:59 Freq: Status: Active Protocol: Document 01/27/24 11:01 ROBBISCARLETTASAEL (Rec: 01/27/24 11:08 [facility] [id number]) Physical Therapy Daily Note/Assessment Time In/Time Out Time In 09:45 Time Out 10:00 Pain In Pain N/A Pain Out Pain N/A Subjective Subjective Pt sitting in BS chair upon arrival. Agrees to PT. Denies pain this morning. Therapeutic Exercise Time Therapeutic Exercise Minutes (minutes) 12 Therapeutic Exercise Units 1 Therapeutic Exercise Treatment Therapeutic Exercise Treatment Seated AP, LAQ, marches and add squeezes 10x ea. Seated UE ex with YTB bicep curls, retractions, horizontal abduction, and triceps push down 10x ea. YTB for resisted HS curls and hip abd 10x ea. Attempted stationary foot pedaling with portable pedals but unable to keep feet in pedals with socks on and her family took her shoes home. Pt is going to ask family to bring her shoes back and attempt this later today with them. Therapeutic Activity Time Therapeutic Activity Minutes (minutes) 3 Therapeutic Activity Units 0 Therapeutic Activity Treatment Chair Transfer Ability Moderate Assist Therapeutic Activity Comments Sit>stand to RW ModA. Static standing 30 sec before needing rest break. Legs very shakey. Sit>stand to RW again ModA and takes 3 step forward and backwards with Lebron. Shakey with amb. Returned to BS chair with call light in reach and needs met. Total Physical Therapy Time Total Therapy Minutes 15 Total Physical Therapy Units 1 Summary Daily Note Summary Slight improvement with mobility today. Cont to have significant LE weakness and would benefit from SNF to regain strength and endurance to return to PLOF.
[2024-01-27 11:36] LABS: Hematocrit 29.3 % (36.0-48.0); Hemoglobin 8.6 g/dL (12.0-16.0); Immature Granulocytes Abs Auto 0.08 10^3/uL (0.00-0.03); Immature Granulocytes Pct Auto 1.2 % (0.0-0.5); Lymphocytes Absolute Auto 0.4 10^3/uL (1.2-3.8); Lymphocytes Percent Auto 5.5 % (20.5-60.0); Mean Corpuscular HGB Conc 29.4 g/dL (29.9-35.2); Mean Corpuscular Hemoglobin 26.2 pg (26.7-34.0); Mean Corpuscular Volume 89.3 fL (81.0-99.0); Mean Platelet Volume 9.4 fL (9.5-13.5); Monocytes Absolute Auto 0.1 10^3/uL (0.3-0.8); Monocytes Percent Auto 1.8 % (1.7-12.0); Neutrophils Percent Auto 91.5 % (43.0-75.0); Platelet Count 166 10^3/uL (150-450); Red Blood Count 3.28 10^6/uL (4.20-5.40); Red Cell Distribution Width 15.7 % (11.0-15.0); White Blood Count 6.6 10^3/uL (4.0-11.0)
--- NOTE | 2024-01-27 13:20 | SWNOTE1 ---
SW sent updated PT note, Dr Espana's note, vitals, labs, and med rec to Jenny at [facility].
--- NOTE | 2024-01-27 14:48 | SWNOTE1 ---
STORM reached out to Jenny at [facility] and she has not heard back yet about precert, she will let STORM know.
[2024-01-27] MEDS: METHYLPREDNISOLONE SOD SUCC PF 125 MG/2 ML VIAL 60 MG IVP ×2 (15:22→20:00)
[2024-01-27 19:34] LABS: Glucometer 236 mg/dL (74-106)
[2024-01-28] VITALS: BP 169/75; PULSE 72; RESP 18; TEMP 36.6; O2SAT 94
[2024-01-28] MEDS: METHYLPREDNISOLONE SOD SUCC PF 125 MG/2 ML VIAL 60 MG IVP ×2 (03:09→09:52)
[2024-01-28 04:00] VITALS: BP 162/75; PULSE 70; RESP 18; TEMP 36.4; O2SAT 95
[2024-01-28 05:05] LABS: Basophils Percent Auto 0.1 % (0.2-2.0); Hematocrit 29.9 % (36.0-48.0); Hemoglobin 8.7 g/dL (12.0-16.0); Immature Granulocytes Pct Auto 1.4 % (0.0-0.5); Lymphocytes Absolute Auto 0.3 10^3/uL (1.2-3.8); Lymphocytes Percent Auto 4.4 % (20.5-60.0); Mean Corpuscular HGB Conc 29.1 g/dL (29.9-35.2); Mean Corpuscular Volume 89.5 fL (81.0-99.0); Mean Platelet Volume 9.3 fL (9.5-13.5); Monocytes Absolute Auto 0.3 10^3/uL (0.3-0.8); Monocytes Percent Auto 3.5 % (1.7-12.0); Neutrophils Absolute Auto 6.5 10^3/uL (1.4-6.5); Neutrophils Percent Auto 90.6 % (43.0-75.0); Platelet Count 192 10^3/uL (150-450); Red Blood Count 3.34 10^6/uL (4.20-5.40); Red Cell Distribution Width 15.6 % (11.0-15.0); White Blood Count 7.2 10^3/uL (4.0-11.0)
[2024-01-28 05:14] LABS: Erythrocyte Sedimentation Rate 11 mm/hr (<=30)
[2024-01-28 05:31] LABS: Alanine Aminotransferase 38 U/L (14-59); Albumin Globulin Ratio 0.8; Albumin Level 2.7 g/dL (3.4-5.0); Alkaline Phosphatase 56 U/L (46-116); Anion Gap 11.5; Aspartate Amino Transferase 10 U/L (15-37); BUN Creatinine Ratio 30.3; Bilirubin Total 0.3 mg/dL (0.2-1.0); C Reactive Protein 1.09 mg/dL (<=0.50); Calcium 8.7 mg/dL (8.5-10.1); Carbon Dioxide 21.9 mmol/L (21.0-32.0); Chloride 109 mmol/L (98-107); Estimated GFR (African America 40 (>=60); Estimated GFR (Non-African Ame 33 (>=60); Globulin 3.2 g/dL; Glucose 122 mg/dL (74-106); Potassium 4.4 mmol/L (3.5-5.1); Sodium 138 mmol/L (136-145); Total Protein 5.9 g/dL (6.4-8.2)
[2024-01-28] MEDS: GABAPENTIN 100 MG CAPSULE PO ×2 (05:58→13:41)
[2024-01-28] MEDS: PANTOPRAZOLE SODIUM 40 MG VIAL IV (05:58)
[2024-01-28] MEDS: METOPROLOL TARTRATE 25 MG TABLET 50 MG PO (06:48)
--- NOTE | 2024-01-28 08:38 | P.PN_ITS ---
Progress Note: Subjective Subjective Interval history: Sleeping up in chair. No new complaints, pain well-controlled Exam Constitutional Vital Signs, click to edit/add: Last Vital Signs Temp 97.5 F L 01/28/24 04:00 Pulse 70 01/28/24 04:00 Resp 18 01/28/24 04:00 BP 162/75 H 01/28/24 04:00 Pulse Ox 95 01/28/24 04:00 O2 Del Method Room Air 01/28/24 04:00 Documenting provider has reviewed patient's vital signs: yes Common normals: no apparent distress Chest Common normals: inspection of chest normal Respiratory Common normals: normal respiratory effort and no retractions Cardio Common normals: regular rate and regular rhythm GI Common normals: Normal to inspection, nondistended, normoactive bowel sounds pr esent, soft to palpation and non-tender Progress Note: Objective Labs Labs: Short CBC 01/27/24 01/28/24 Range/Units 11:17 04:07 WBC 6.6 7.2 (4.0-11.0) 10^3/uL Hgb 8.6 L 8.7 L (12.0-16.0) g/dL Hct 29.3 L 29.9 L (36.0-48.0) % Plt Count 166 192 (150-450) 10^3/uL BMP 01/28/24 04:07 Sodium 138 Potassium 4.4 Chloride 109 H Carbon Dioxide 21.9 BUN 47.0 H Creatinine 1.55 H Glucose 122 H Calcium 8.7 Liver Function 01/28/24 Range/Units 04:07 Total Bilirubin 0.3 (0.2-1.0) mg/dL AST 10 L (15-37) U/L ALT 38 (14-59) U/L Alkaline Phosphatase 56 (46-116) U/L Albumin 2.7 L (3.4-5.0) g/dL Progress Note: A&P Assessment and Plan (1) Adult failure to thrive: (2) Acute kidney injury superimposed on chronic kidney disease: (3) Rhinovirus infection: (4) Acute abdomen: Plan Sinus tachycardia, uncontrolled hypertension, acute kidney injury secondary to dehydration, complicated by rhinovirus illness. Overall improved, will saline lock Acute abdomen-CT scan f\unremarkable, patient no longer has abdominal tendern ess, uncertain etiology. 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 It is prednisone tomorrow Thrombocytopenia-monitor daily Uncontrolled hypertension-IV hydralazine as needed-overall stable, maintain current medications Acute kidney injury with creatinine 138% above baseline on admission. back to baseline Continue with currently medically necessary treatment as outlined above, working on placement. Urinary Catheter Management Urinary Catheter Management Straight: Cath placed during this visit: yes Urethral indwelling: No Insertion date: 01/25/24 Insertion time: 00:27
[2024-01-28 09:00] VITALS: BP 148/68; PULSE 71; RESP 18; TEMP 36.4; O2SAT 94
--- NOTE | 2024-01-28 09:32 | CM.NOTE ---
Rounds made with Dr. Guo. Labs reviewed by Dr. Guo with [facility]. Understanding verbalized.
[2024-01-28] MEDS: LOSARTAN POTASSIUM 50 MG TABLET PO (09:52)
[2024-01-28] MEDS: FERROUS SULFATE 325 MG TABLET PO (09:52)
[2024-01-28] MEDS: ORPHENADRINE 60 MG/ 2 ML VIAL IV (09:52)
[2024-01-28] MEDS: AMLODIPINE BESYLATE 5 MG TABLET PO (09:52)
[2024-01-28] MEDS: BUPRENORPHINE HCL/NALOXONE HCL 8-2 MG TABLET SUBL 1 TAB SL (09:52)
--- NOTE | 2024-01-28 10:20 | PT.DAILY ---
Physical Therapy Daily Note PT Daily Note/Assess Start: 01/26/24 11:59 Freq: Status: Active Protocol: Document 01/28/24 10:16 CASSANDRA (Rec: 01/28/24 10:20 CASSANDRA [id number]) Physical Therapy Daily Note/Assessment Time In/Time Out Time In 09:40 Time Out 09:55 Pain In Pain N/A Pain Out Pain N/A Subjective Subjective Sitting in BS chair upon arrival. Agrees to PT. Denies pain. Therapeutic Exercise Time Therapeutic Exercise Minutes (minutes) 8 Therapeutic Exercise Units 1 Therapeutic Exercise Treatment Therapeutic Exercise Treatment Seated AP, LAQ, marches, add squeezes, resisted hip abd with YTB 10x. UE ex with YTB - bilat scap retract, bicep curls, horizontal abd and triceps push downs 10x ea. Therapeutic Activity Time Therapeutic Activity Minutes (minutes) 5 Therapeutic Activity Units 0 Therapeutic Activity Treatment Chair Transfer Ability Minimum Assist Therapeutic Activity Comments Sit>stand from recliner Lebron. Amb 4' with RW, CGA before needing to sit and rest. Pt sits on EOB for seated rest break. Sit>stand from bed CGA (higher surface) amb 4' back to chair. Remains in BS chair with call light in reach and needs met. Total Physical Therapy Time Total Therapy Minutes 13 Total Physical Therapy Units 1 Summary Daily Note Summary Pt is very easily fatigued with dynamic standing activity . Would benefit from SNF.
--- NOTE | 2024-01-28 10:58 | SWNOTE1 ---
STORM emailed Jenny at [facility] in regards to precert. She emailed back and she has not heard anything at this time, she will check with case management.
--- NOTE | 2024-01-28 11:37 | SWNOTE1 ---
STORM sent over updated PT/OT and physician notes, med list, and nursing notes to Jenny brown [facility].
--- NOTE | 2024-01-28 11:39 | SWNOTE1 ---
SW received message from Jenny brown [facility] and pt is approved. SW let doctor and nursing know.
[2024-01-28 11:48] VITALS: O2SAT 92
--- NOTE | 2024-01-28 12:16 | SWNOTE1 ---
Pt is approved to go to [facility] in [place] for rehab. STORM set up trips for 2:00-2:30. STORM notified nursing, Jenny at [facility], and patient. STORM sent over dc med rec to Jenny at [facility] as well. STORM reminded pt that she will need to bring in her own Suboxone.
--- NOTE | 2024-01-28 12:23 | P.DS_ITS ---
DS: Providers Provider Date of admission: 01/25/24 10:21 Primary care physician: Shaikh Daphne MD Consults: 01/25/24 07:21 Occupational Therapy Eval and Treat Routine Reason for consultation: Only if needed for Rehab Has provider been notified: No Physical Therapy Eval and Treat Routine Reason for consultation: Eval and Treat Has provider been notified: No 01/25/24 11:32 Consult to Oncology Routine Consulting Provider: Mary Espana Reason for consultation: pt known to him Has provider been notified: No DS: Diagnosis Discharge Diagnosis (1) Adult failure to thrive: (2) Acute kidney injury superimposed on chronic kidney disease: (3) Rhinovirus infection: (4) Acute abdomen: Plan Sinus tachycardia, uncontrolled hypertension, acute kidney injury secondary to dehydration, complicated by rhinovirus illness Acute abdomen- 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 Found to have viral illness but pain was out of proportion to findings. When I saw her the following morning she had a definite acute abdomen Fuhs tenderness with some guarding and positive rebound tenderness. CT scan was done which showed no infectious etiology. It was done without contrast secondary to the acute renal failure on admission. She was placed on IV antibiotics, also started on steroids for her demyelinating disorder. By the next day her pain was resolved, she was kept on antibiotics for 2 more days, no other focal signs of infection. Those antibiotics have been off for the last 2 days. She was given high-dose steroids initially due to the demyelinating disorder of her spine. We have tapered the steroids every day since that first day. Her pain is not increased. Currently stable on her Subox one. Patient still need of rehab. Due to safety with ambulation. Medically stable for discharge to rehab today. Medications see list. Follow-up with PCP at discharge from rehab. Time Spent with Patient Time attestation: Total time spent providing and/or coordinating discharge services: Exam Constitutional Vital Signs, click to edit/add: Last Vital Signs Temp 97.6 F 01/28/24 09:00 Pulse 71 01/28/24 09:00 Resp 18 01/28/24 09:00 BP 148/68 H 01/28/24 09:00 Pulse Ox 92 L 01/28/24 11:48 O2 Del Method Room Air 01/28/24 11:48 Documenting provider has reviewed patient's vital signs: yes Common normals: no apparent distress Chest Common normals: inspection of chest normal Respiratory Common normals: normal respiratory effort and no retractions Cardio Common normals: regular rate and regular rhythm GI Common normals: Normal to inspection, nondistended, normoactive bowel sounds present, soft to palpation and non-tender DS: Data Data Completed and Pending Labs on day of discharge: Labs from last 24 hours 01/28/24 01/27/24 04:07 19:33 WBC 7.2 RBC 3.34 L Hgb 8.7 L Hct 29.9 L MCV 89.5 MCH 26.0 L MCHC 29.1 L RDW 15.6 H Plt Count 192 MPV 9.3 L Neut % (Auto) 90.6 H Lymph % (Auto) 4.4 L Spencer % (Auto) 3.5 Eos % (Auto) 0.0 L Baso % (Auto) 0.1 L Neut # (Auto) 6.5 Lymph # (Auto) 0.3 L Spencer # (Auto) 0.3 Eos # (Auto) 0.0 Baso # (Auto) 0.0 Abs Immat Gran (auto) 0.10 H Imm/Tot Granulo (auto) 1.4 H ESR 11 Sodium 138 Potassium 4.4 Chloride 109 H Carbon Dioxide 21.9 Anion Gap 11.5 BUN 47.0 H Creatinine 1.55 H Est GFR ( Amer) 40 L Est GFR (Non-Af Amer) 33 L BUN/Creatinine Ratio 30.3 Glucose 122 H Calcium 8.7 Total Bilirubin 0.3 AST 10 L ALT 38 Alkaline Phosphatase 56 C-Reactive Protein 1.09 H Total Protein 5.9 L Albumin 2.7 L Globulin 3.2 Albumin/Globulin Ratio 0.8 POC Glucose 236 H Discharge Plan Discharge Disposition: Xfer SNF Condition: Good Discharge Medications: New buprenorphine-naloxone 8-2 mg Tablet, Sublingual 1 tab sublingual BID Qty: 60 0RF prednisone 10 mg tablet 50 mg PO DAILY Qty: 47 0RF Rx Instructions: 5/day for 3 days. 4/day for 3 days, 3/day for 3 days, 2/day for 3 days, 1/day for 3 days, 1/2 /day for 4 days prednisone 10 mg tablet 50 mg PO DAILY Qty: 47 0RF Rx Instructions: 5/day for 3 days. 4/day for 3 days, 3/day for 3 days, 2/day for 3 days, 1/day for 3 days, 1/2 /day for 4 days Continued metoprolol tartrate 25 mg tablet 25 mg PO Q12H valsartan 80 mg tablet 80 mg PO DAILY ferrous sulfate [Iron (ferrous sulfate)] 325 mg (65 mg iron) tablet 325 mg PO DAILY 30 Days Qty: 30 0RF amlodipine 5 mg tablet 5 mg PO DAILY gabapentin 100 mg Capsule 100 mg PO TID Qty: 90 0RF albuterol sulfate 90 mcg/actuation HFA aerosol inhaler 2 puff INHALATION Q4H PRN (Reason: shortness of breath or wheezing) Discontinued buprenorphine-naloxone 8-2 mg film 1.5 film sublingual Q24H spironolactone 25 mg Tablet 25 mg PO QD 30 Days Qty: 30 0RF furosemide 20 mg tablet 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 Espana (oncology) @ [facility] [phone], ext. [phone]
[2024-01-28 13:00] VITALS: BP 167/71; PULSE 60; RESP 18; TEMP 36.5; O2SAT 93
== END 2024-01-28 14:16 | DRG 392 ==
LOC: ER 22:43 → MS 01-25 06:34
PROVIDERS: Admitting Provider Family Medicine; Emergency Provider Emergency Medicine; PCP Internal Medicine; Visit Provider Family Medicine
DX: R10.0 Acute abdomen (principal); N17.9 Acute kidney failure, unspecified; G37.9 Demyelinating disease of central nervous system, unspecified; I13.0 Hypertensive heart and chronic kidney disease with heart failure and stage 1 through stage 4 chronic kidney disease, or unspecified chronic kidney disease; J96.11 Chronic respiratory failure with hypoxia; I50.32 Chronic diastolic (congestive) heart failure; M51.36 Other intervertebral disc degeneration, lumbar region; N18.31 Chronic kidney disease, stage 3a; J44.9 Chronic obstructive pulmonary disease, unspecified; I25.10 Atherosclerotic heart disease of native coronary artery without angina pectoris; B34.8 Other viral infections of unspecified site; E86.0 Dehydration; D63.8 Anemia in other chronic diseases classified elsewhere; F11.91 Opioid use, unspecified, in remission; D69.6 Thrombocytopenia, unspecified; B34.1 Enterovirus infection, unspecified; G89.29 Other chronic pain; R62.7 Adult failure to thrive; Z68.32 Body mass index [BMI] 32.0-32.9, adult; M54.50 Low back pain, unspecified; R79.1 Abnormal coagulation profile; I25.2 Old myocardial infarction; Z20.822 Contact with and (suspected) exposure to COVID-19; Z90.710 Acquired absence of both cervix and uterus; Z96.652 Presence of left artificial knee joint; Z95.5 Presence of coronary angioplasty implant and graft; Z87.891 Personal history of nicotine dependence; Z79.899 Other long term (current) drug therapy; Z85.820 Personal history of malignant melanoma of skin; Z82.49 Family history of ischemic heart disease and other diseases of the circulatory system; Z83.3 Family history of diabetes mellitus; Z83.6 Family history of other diseases of the respiratory system; Z79.02 Long term (current) use of antithrombotics/antiplatelets; R79.89 Other specified abnormal findings of blood chemistry
CPT/HCPCS: 0202U; 36415; 71045; 72131; 74176; 80048; 80053; 80307; 81001; 82550; 82948; 83735; 83880; 84484; 85007; 85025; 85027; 85378; 85652; 86140; 93005; 93308; 94667; 94668; 94761; 96361; 96365; 96366; 96367; 96372; 96375; 96376; 97110; 97161; 97165; 97530; 97535; 99285; G0328; J2930

== ENCOUNTER 2024-02-17 10:02 | Outpatient (OUT) | payer MEDICARE, SELFPAY ==
--- OUTSIDE RECORDS SUMMARY | 2024-02-17 10:14 | XMS_ITS | CCD ---
Author Organization [facility] Care Team Providers Care [facility] Manager Name Role Phone INGRID IBARRA Unavailable Unavailable INGRID IBARRA Unavailable Unavailable James Pereira Primary Care Provider NON, STAFF, Attending Provider Unavailable Unavailable Unavailable James Pereira Unavailable Unavailable Unavailable Brian Sawyer Unavailable Unavailable Unavailable LARA EDOUARD Admitting Unavailable LARA EDOUARD Attending Unavailable DR JAMES PEREIRA Primary Care Unavailable RODERICK ESTRELLA Consulting Unavailable CHARLEY LUCAS Consulting Unavailable MARLON METCALF Consulting Unavailable LARA EDOUARD Consulting Unavailable Julio WALLER, Dr. Ingrid Palma Attending Unavailable Julio WALLER, Dr. Ingrid Palma Referring Unavailable Dr. James Pereira Primary Care Unavailable JAMES PEREIRA Primary Care Unavailable GILMER, EHAD Consulting Unavailable INPATIENT, TELENEUROLOGY Consulting Unavail able James Pereira DO Primary Care Provider Shaikh Serna MD Primary Care Provider MD Mary Espana Attending Provider MD Laury Serna Primary Care Provider [phone] Shaikh Serna Primary Care Unavailable Mary Espana Attending Unavailable Mayr Espana Admitting Unavailable SHAIKH SERNA Attending Unavailable TRENT RAMIREZ Attending Unavailable SHAIKH SERNA Attending Unavailable ANTONY GRANT Attending Unavailable Unavailable Unavailable Unavailable Allergies Allergy Classification Reported Allergen(s) Allergy Type Date of Onset Reaction(s) Facility (1 source) Non-steroidal anti-inflammato ry agent Drug Allergy 3 Unknown [facility] (2 sources) Non-steroidal anti-inflammato ry agent Propensity to adverse reactions to drug 3 Other (See Comments) [facility] Medications Current Medications Medication Drug Class(es) Dates Sig (Normalized) Sig (Original) acetaminophen 325 mg oral tablet (6 sources) Start: 09-09-2020 take 650 mg by mouth every six hours Acetaminophen Active 650 MG PO Q6H 0 September 09, 2020 12:35pm take 1 tablet by mouth every six hours acetaminophen (Tylenol) 325 MG tablet Take 325 mg by mouth every 6 (six) hours 0 Active [id number] actuat albuterol 0.09 mg/actuat metered dose inhaler (3 sources) beta2-Adrenergic Agonist Start: 12-02-2023 End: 01-01-2024 take 2 puff(s) by inhalation every four hours for wheezing albuterol HFA 90 mcg/act inhaler Indications: Chronic obstructive pulmonary disease, unspecified COPD type ([facility]) Inhale 2 puffs every 4 (four) hours [...] Sep, Active amLODIPine 10 mg oral tablet (13 sources) Dihydropyridine Calcium Channel Bronwyn Start: 08-20-2023 take 1 tablet by mouth once daily amLODIPine Besylate 5 MG Oral Tablet TAKE 1 TABLET DAILY. Quantity: 90 Refills: 3 Ordered: 20-Aug-2023 Ingrid Ibarra MD Start : 20-Aug-2023 Active Start: 04-20-2018 End: 09-09-2020 take 1 tablet by mouth once daily amLODIPine (NORVASC) 10 mg tablet Take 10 mg by mouth daily. 3 04/20/2018 Active aspirin 81 mg chewable tablet (9 sources) [...] 0 Active atorvastatin 80 mg oral tablet (11 sources) HMG-CoA Reductase Inhibitor Start: 04-18-2022 take 80 mg by mouth once daily in the evening Atorvastatin Active 80 MG PO Every evening April 17, 2022 11:00pm Start: 10-13-2019 End: 04-18-2022 take 1 tablet by mouth once daily atorvastatin (LIPITOR) 40 mg tablet Take 40 mg by mouth nightly. 3 10/13/2019 Active azithromycin 250 mg oral tablet (1 [...] by mouth in the morning. 30 capsule 11 12/16/2023 12/10/2024 Active buprenorphine 8 mg / naloxone 2 mg sublingual film (2 sources) Partial Opioid Agonist, Opioid Antagonist Start: 11-09-2023 Buprenorphine HCl-Naloxone HCl (Suboxone) 8-2 MG SL film DISSOLVE 1.5 film UNDER THE TONGUE ONCE DAILY 0 11/09/2023 Active Buprenorphine HC l-Naloxone HCl - 8-2 MG Sublingual Film as directed Quantity: 0 Refills: 0 Ordered: 20-Aug-2023 DO Active 168 hr cloNIDine 0.70800 mg/hr transdermal system (6 sources) Central alpha-2 Adrenergic Agonist Start: 12-24-2020 cloNIDine (CATAPRES- TTS) 0.2 mg/24 hr apply ONE PATCH EACH Week @0900 IN THE MORNING 0 12/24/2020 Active Start: 09-09-2020 End: 12-25-2021 Clonidine Active 1 EACH URIBE SDERML We@0900 4 September 09, 2020 12:35pm clopidogrel 75 mg oral tablet (12 sources) P2Y12 Platelet Inhibitor Start: 10-14-2019 End: 10-21-2021 take 1 tablet by mouth once daily clopidogrel (PLAVIX) 75 mg tablet Take 75 mg by mouth daily. 12 10/14/2019 Active diclofenac sodium 0.01 mg/mg topical gel (4 sources) Nonsteroidal Anti-inflammatory Drug Start: 03-24-2019 diclofenac sodium (VOLTAREN) 1 % gel Apply 2 g topically 4 (four) times a day. 100 g 0 03/24/2019 Active ferrous sulfate 325 mg oral tablet (12 sources) Start: 12-02-2023 End: 03-01-2024 take 1 [...] 09, 2020 11:39am take 1 tablet by mouth once scott [...] 11/23/2023 Active hydroCHLOROthiazide 25 mg oral tablet (11 sources) Thiazide Diuretic Start: 09-09-2020 End: 04-18-2022 [...] Ibarra magnesium gluconate 550 mg oral tablet (4 sources) take 1 tablet by mouth twice daily magnesium 30 mg tablet Take 30 mg by mouth 2 (two) times a day. 0 Active magnesium oxide 400 mg oral tablet (4 sources) Start: 12-24-2020 take 1 tablet by mouth once daily as needed magnesium oxide (MAG-OX) 400 mg tablet Take 1 tablet by mouth daily as needed. 0 12/24/2020 Active metoprolol tartrate 25 mg oral tablet (13 sources) beta-Adrenergic Bronwyn Start: 09-09-2020 take 25 [...] DO Active take 1 tablet by lucio every twelve hours Metoprolol Tartrate 50 MG 1 tablet with food Orally Twice a day Active naloxone hydrochloride 40 mg/ml nasal spray (5 sources) Opioid Antagonist Start: 01-15-2021 naloxone (NA [...] Active Start: 10-12-2021 take 2 tablets by mo [facility] every twenty-four hours predniSONE 20 MG [...] 03/16/2024 Active torsemide 5 mg oral tablet (4 sources) Loop Diuretic Start: 07-30-2020 torsemide (DEMADEX) 5 mg tablet traMADol hydrochloride 50 mg oral tablet (8 sources) Opioid Agonist Start: 02-28-2021 take 1 [...] Start: 06-05-2020 take 1 capsule by mo [facility] once daily at mealtime Vitamin B [...] 25, 2021 12:00am December 25, 2021 5:35pm dexamethasone 6 mg oral tablet (1 source) [...] 2021 5:36pm lisinopril 40 mg oral tablet (11 sources) Angiotensin Converting Enzyme Inhibitor Start: 04-05-2019 End: 04-06-2019 take 5 mg by mouth once daily Lisinopril Discontinued 5 MG PO Daily April 05, 2019 8:25am April 06, 2019 12:58pm Start: 04-20-2018 End: 04-18-2022 take 1 tablet by mouth once daily lisinopril (PRINIVIL,ZESTRIL) 40 mg tablet Take 40 mg by mouth daily. 3 04/20/2018 Active Magnesium (6 sources) Start: 09-09-2020 End: 01-06-2024 [...] chloride 20 meq extended release oral tablet (5 sources) Start: 04-05-2019 End: 06-03-2020 take 20 mEq by mouth once daily Potassium Chloride Discontinued 20 MEQ PO Daily April 05, 2019 8:25am June 03, 2020 11:05am Start: 04-20-2018 End: 02-13-2024 potassium chloride (K-DUR,KL OR-CON) 20 MEQ CR tablet Take 20 mEq by mouth daily. 3 04/20/2018 02/13/2024 Discontinued (Therapy completed) prasugrel 10 mg oral tablet (1 source) [...] Date Episodic/Chronic Acute and unspecified renal failure (12 sources) Acute renal failure syndrome; Translations: [Injury of kidney] Onset: 12-03-2023 12-16-2023 Episodic Administrative/social admission (1 source) Patient encounter status; Translations: [Persons encountering health services in other specified circumstances] Onset: 12-03-2023 12-03-2023 Episodic Cardiac dysrhythmias (4 sources) Sinus tachycardia; Translations: [Tachycardia, unspecified] Onset: 01-29-2024 01-29-2024 Episodic Chronic kidney disease (10 sources) Chronic kidney disease stage 3; Translations: [Chronic kidney disease, stage 3 (moderate)] Onset: 12-02-2023 12-02-2023 Chronic Complications of surgical procedures or medical care (2 sources) Trauma and postoperative pulmonary insufficiency; Translations: [Acute postprocedural respiratory failure] 09-04-2020 Episodic Conditions associated with dizziness or vertigo (2 sources) Dizziness; Translations: [Dizziness and giddiness] 04-05-2019 Episodic Congestive heart failure; nonhypertensive (11 sources) Acute congestive heart failure; Translations: [Congestive heart failure] Onset: 12-02-2023 12-02-2023 Chronic Coronary atherosclerosis and other heart disease (16 sources) Coronary arteriosclerosis; Translations: [Preinfarction syndrome] Onset: [...] sources) Anemia; Translations: [Anemia, unspecified] 06-04-2020 Episodic Deficiency and other anemia (5 sources) Iron deficiency anemia; Translations: [Iron deficiency anemia, unspecified] Onset: 01-29-2024 01-29-2024 Episodic Diabetes mellitus without complication (1 source) [...] esophagitis] Onset: 12-17-2023 12-17-2023 Chronic Essential hypertension (13 sources) Hypertensive disorder; Translations: [Essential hypertension] Onset: 12-02-2023 12-02-2023 Chronic Essential hypertension (1 source) Essential hypertension Onset: 07-22-2017 Fluid and electrolyte disorders (6 sources) Metabolic acidosis; Translations: [Metabolic acidosis] Onset: 02-13-2024 2 Episodic Fracture of upper limb (1 source) [...] medications] Episodic Other aftercare (1 source) Other terminal carman (current) drug therapy; Translations: [[employer] OFF[employer] MANAGER CURRENT DRUG THERAPY] Onset: 12-29-2022 Episodic Other [...] of the circulatory system] 10-21-2021 Episodic Other connective tissue disease (4 sources) Muscle weakness; Translations: [Muscle weakness (generalized)] Onset: 02-13-2024 02-13-2024 Episodic Other lower respiratory disease (2 sources) [...] demyelinating polyneuritis] Onset: 12-17-2023 12-17-2023 Chronic Other nervous system disorders (4 sources) Polyneuropathy; Translations: [Polyneuropathy, unspecified] Onset: 01-29-2024 01-29-2024 Chronic Other nervous system disorders (4 sources) Finding related to ability to move; Translations: [Other abnormalities of gait and mobility] Onset: 02-13-2024 02-13-2024 Episodic Other non-epithelial cancer of skin (4 sources) [...] Chronic Other nutritional; endocrine; and metabolic disorders (6 sources) Obesity; Translations: [Obesity, unspecified] Onset: 01-29-2024 01-29-2024 Chronic Other nutritional; endocrine; and metabolic disorders (1 source) Hypomagnesemia; Translations: [Hypomagnesemia] Chronic Other nutritional; endocrine; and metabolic disorders (1 source) Hypercalcemia; Translations: [Hypercalcemia] Onset: 12-02-2023 12-02-2023 Chronic Other nutritional; endocrine; and metabolic disorders (2 sources) Obesity caused by energy imbalance; Translations: [Other obesity due to excess calories] 01-29-2024 Chronic Other nutritional; endocrine; and metabolic disorders (4 sources) Adult failure to thrive syndrome; Translations: [Adult failure to thrive] Onset: 01-29-2024 01-29-2024 Episodic Other screening for suspected conditions (not mental [...] Spondylosis; intervertebral disc disorders; other back problems (6 sources) Lumbosacral spondylosis without myelopathy; Translations: [Spondylosis without myelopathy or radiculopathy, lumbosacral region] Onset: 07-05-2018 03-24-2019 Chronic Superficial injury; contusion (3 sources) Contusion of [...] Unclassified (1 source) Athscl heart disease of [place] coronary artery w/o ang pctrs / I25.10(ICD-9) Onset: 07-22-2017 Unclassified (1 source) Old myocardial infarction / I25.2(ICD-9) Onset: 07-22-2017 Unclassified (1 source) Overweight / E66.3(ICD-9) Onset: 07-22-2017 Viral infection (7 sources) COVID-19; Translations: [Pneumonia due to COVID-19 virus] Onset: 01-29-2024 10-21-2021 Episodic Past or Other Problems Problem Classification Problem Date Documented Da te Episodic/Chronic Other circulatory disease (1 source) Other specified symptoms and signs involving the circulatory and respiratory systems; Translations: [Oth symptoms and signs involving the circ and resp systems] Onset: 07-22-2017 Episodic Other gastrointestinal disorders (1 source) Occult blood in stools; Translations: [Other fecal abnormalities] Episodic Spondylosis; intervertebral disc disorders; other back problems (6 sources) Disorder of sacrum; Translations: [Sacrococcygeal disorders, not elsewhere classified] Onset: 05-31-2019 01-15-2021 Episodic Viral infection (1 source) COVID-19 Onset: 10-12-2021 Resolved: 10-12-2021 Results Test Name Value Interpretation Reference Range Facility Activated partial thrombopla stin time (aPTT) in platelet poor plasma by coagulation aOrdered By: Mary Espana on 01-06-2024 aPTT Coag (PPP) [Time] 24.6 s 25.1-36.5 [facility] Comment on above: A hematocrit value g reater than 55% may lead to inaccurate results in coagulation testing. Patients having hematocrit values >55% require a special collection tube for coagulation studies. Please contact the laboratory at [phone] guided bone marrow bx/asp iron 01-06-2024 CT guided bone marrow bx/aspir [facility] Main [place] [id number] CT Scan Report Signed Patient: Kusum Huerta MR#: [id number] [birth year] : 1950 Acct:[id number] Age/Sex: 73 / F ADM Date: 01/06/24 Loc: CT Room: Type: [facility] Attending Dr: Mary Espana MD Copies to: [...] Yaw Deluca M.D.01/06/2024 2:06 PM Dictation Location: [place] [address] Transcribed By: [facility] 01/06/24 1406 Dictated By: Yaw Deluca II, MD 01/06/24 1401 Signed By: 01/06/24 1406 Normal [facility] Coagulation Profileon 2023 aPTT Coag (Bld) [Time] 24.6 s Low 25.1-36.5 [facility] Comment on above: Order Comment: STAT FOR BX Result Comment: A he matocrit value greater than 55% may lead to inaccurate results in coagulation testing. Patients having hematocrit values >55% require a special collection tube for coagulation studies. Please contact the laboratory at [phone] for redraw instructions. PERFORMED BY: [place] [address] PATHOLOGIST COTTON PROGRAM TECHNICIAN CUCA VOGT M.D. Performed By: #### C BC, PLT, PP #### [address] INR Coag (PPP) [Relative time] 0.9 {INR} Normal [facility] Comment on above: Order Comment: STAT FOR [...] By: #### C BC, PLT, PP #### [place] [id number] [facility] Coag (PPP) [Time] 10.4 s Normal 9.0-12.9 [facility] Comment on above: Order Comment: STAT FOR BX Result Comment: A he matocrit value greater than 55% may lead to inaccurate results in coagulation testing. Patients having hematocrit values >55% require a special collection tube for coagulation studies. Please contact the laboratory at [phone] for redraw instructions. Performed By: #### C BC, PLT, PP #### [place] [id number] [facility] Complete Blood Count Auto Di ffon 01-06-2024 Basophils (Bld) [#/Vol] 0.0 10*3/uL Normal 0.0-0.2 [facility] Comment on above: Order Comment: STAT FOR BX Result Comment: PERF ORMED BY: [place] [address] PATHOLOGIST COTTON PROGRAM TECHNICIAN JIANLAN SUN M.D. Performed By: #### C BC, PLT, PP #### [address] Basophils/100 WBC (Bld) 0.1 % Normal . [facility] Comment on above: Order Comment: STAT FOR BX Performed By: #### C BC, PLT, PP #### [address] Eosinophils (Bld) [#/Vol] 0.0 10*3/uL Normal 0.0-0.45 [facility] Comment on above: Order Comment: STAT FOR BX Performed By: #### C BC, PLT, PP #### [address] Eosinophils/100 WBC (Bld) 0.4 % Normal . [facility] Comment on above: Order Comment: STAT FOR BX Performed By: #### C BC, PLT, PP #### [address] Erythrocyte distribution width (RBC) [Ratio] 17.3 % High 11.9-15.3 [facility] Comment on above: Order Comment: STAT FOR BX Performed By: #### C BC, PLT, PP #### [address] Hematocrit (Bld) [Volume fraction] 33.3 % Low 34.0-46.4 [facility] Comment on above: Order Comment: STAT FOR BX Performed By: #### C BC, PLT, PP #### [address] Hemoglobin (Bld) [Mass/Vol] 10.4 g/dL Low 11.8-15.4 [facility] Comment on above: Order Comment: STAT FOR BX Performed By: #### C BC, PLT, PP #### [address] Lymphocytes (Bld) [#/Vol] 0.7 10*3/uL Low 1.00-4.8 [facility] Comment on above: Order Comment: STAT FOR BX Performed By: #### C BC, PLT, PP #### [address] Lymphocytes/100 WBC (Bld) 10.7 % Normal . [facility] Comment on above: Order Comment: STAT FOR BX Performed By: #### C BC, PLT, PP #### [address] MCH (RBC) [Entitic mass] 26.6 pg Normal 24.7-34.3 [facility] Comment on above: Order Comment: STAT FOR BX Performed By: #### C BC, PLT, PP #### [address] MCV (RBC) [Entitic vol] 85.0 fL Normal 80-100 [facility] Comment on above: Order Comment: STAT FOR BX Performed By: #### C BC, PLT, PP #### [address] Mean Corpuscular HGB Conc 31.3 g/dL Low 32.0-35.0 [facility] Comment on above: Order Comment: STAT FOR BX Performed By: #### C BC, PLT, PP #### [place] [address] [place] Monocytes (Bld) [#/Vol] 0.7 10*3/uL Normal 0.0-0.8 [facility] Comment on above: Order Comment: STAT FOR BX Performed By: #### C BC, PLT, PP #### [place] [address] [place] Monocytes/100 WBC (Bld) 9.4 % Normal . [facility] Comment on above: Order Comment: STAT FOR BX Performed By: #### C BC, PLT, PP #### [place] [address] [place] Neutrophils (Bld) [#/Vol] 5.5 10*3/uL Normal 1.8-7.7 [facility] Comment on above: Order Comment: STAT FOR BX Performed By: #### C BC, PLT, PP #### [place] [address] [place] Neutrophils/100 WBC (Bld) 79.4 % Normal . [facility] Comment on above: Order Comment: STAT FOR BX Performed By: #### C BC, PLT, PP #### [facility] [address] NRBC% 0.1 /100{WBC} Normal 0-0.5 [facility] Comment on above: Order Comment: STAT FOR BX Performed By: #### C BC, PLT, PP #### [facility] [address] Platelet mean volume (Bld) [Entitic vol] 7.7 fL Normal 6.3-10.7 [facility] Comment on above: Order Comment: STAT FOR BX Performed By: #### C BC, PLT, PP #### [address] RBC (Bld) [#/Vol] 3.92 10*6/uL Normal 3.60-5.00 [facility] Comment on above: Order Comment: STAT FOR BX Performed By: #### C BC, PLT, PP #### [facility] [address] WBC (Bld) [#/Vol] 6.9 10*3/uL Normal 3.8-11.6 [facility] Comment on above: Order Comment: STAT FOR BX Performed By: #### C BC, PLT, PP #### [address] INR in Platelet poor plasma by Coagulation assayOrdered By: Mary Espana on 01-06-2024 INR Coag (PPP) [Relative time] 0.9 {INR} [facility] Comment on above: INR Therapeutic Rang e [...] Platelets (Bld) [#/Vol] 136 10*3/uL Low 150-450 [facility] Comment on above: Order Comment: STAT FOR BX Result Comment: PERF ORMED BY: [facility] [address] [facility] [id number] PATHOLOGIST COTTON PROGRAM TECHNICIAN CUCA VOGT M.D. Performed By: #### C BC, PLT, PP #### [facility] [address] [place] [id number] [place] Platelets Auto (Bld) [#/Vol] Ordered By: Mary Espana on 01-06-2024 Platelets (Bld) [#/Vol] 136 10*3/uL 150-450 [facility] Prothrombin time (PT)Ordered By: Mary Espana on 01-06-2024 PT Coag (PPP) [Time] 10.4 s 9.0-12.9 [facility] Comment on above: A hematocrit value g reater than 55% may lead to inaccurate results in coagulation testing. Patients having hematocrit values >55% require a special collection tube for coagulation studies. Please contact the laboratory at [phone] for redraw instructions. Multiple labsOrdered By: Maureen Eckert on 11-23-2023 [employer] Height or Weight NOT Doneon 08-20-2023 Adult depression screening assessment No [facility] Work Phone: Fall risk assessment a) No falls within the last year [facility] 600 DO Work Phone: Office Visit (Cardiology)on 08-20-2023 Follow-up visit Diagnoses/Problems Assessed Mixed hyperlipidemia (272.2) (E78.2) Essential hypertension (401.9) (I10) Atherosclerosis of [place] coronary artery without angina pectoris (414.01) (I25.10) Status post angioplasty (V45.89) (Z98.62) Shortness of breath (786.05) (R06.02) Former smoker (V15.82) (Z87.891) Quit 1993 Orders Atherosclerosis of [place] coronary artery without angina pectoris, Status post [...] Former smoker Tobacco Use Screening; Status:Complete; Done: [id number] Unlinked Stop: amLODIPine Besylate 10 MG Oral [...] negative for complaint. Vitals Vital Signs Recorded: [id number] 11:08AM Heart Rate70, L Radial [id number], LUE, Sitting Dfbsenxeg31, LUE, Sitting Height5 ft 3 in Height [...] by: CHARLEY LUCAS Date: 2022-12-27 15:51 Normal [facility] XR RIBS LT PA Waqar 3 XR [...] calcified granuloma in the right lung base. [place] screws noted in the right humeral head. IMPRESSION: 1. No acute rib fracture identified. 2. No acute cardiopulmonary process. Electronically authenticated by: MARLON METCALF Date: 2022-12-27 15:50 Normal [facility] Tobacco Screening.on 022 Adult depression screening assessment No [facility] [employer] 250 DO Work Phone: Fall risk assessment a) No falls within the last year [facility] [employer] 250 DO Work Phone: Tobacco use status [facility] b) No [facility] [employer] 250 DO Work Phone: COVID Quick Testingon 2020 Result Positive [employer] Other Automated blood platelet cou nt (count/volume)on 03-04-2021 Platelets (Bld) [#/Vol] 249 10*3/uL 150-450 [facility] Automated blood platelet oracio n volume measurementon 03-04-2021 Platelet mean volume (Bld) [Entitic vol] 8.2 fL 6.3-10.7 [facility] Automated erythrocyte distri bution width ratioon 03-04-2021 Erythrocyte distribution width (RBC) [Ratio] 17.4 % 11.9-15.3 [facility] Automated erythrocyte mean c orpuscular hemoglobin (mass per erythrocyte)on 03-04-2021 MCH (RBC) [Entitic mass] 27.2 pg 24.7-34.3 [facility] Automated erythrocyte mean c orpuscular hemoglobin concentration measurement (mass/volon 03-04-2021 MCHC (RBC) [Mass/Vol] 32.7 g/dL 32.0-35.0 [facility] Automated erythrocyte mean c orpuscular volumeon 03-04-2021 MCV (RBC) [Entitic vol] 83.2 fL 80-100 [facility] Blood erythrocytes automated count (number/volume)on 03-04-2021 RBC (Bld) [#/Vol] 3.83 10*6/uL 3.60-5.00 [facility] Blood hemoglobin measurement (mass/volume)on 03-04-2021 Hemoglobin (Bld) [Mass/Vol] 10.4 g/dL 11.8-15.4 [facility] Blood leukocytes automated c ount (number/volume)on 03-04-2021 WBC (Bld) [#/Vol] 9.9 10*3/uL 3.8-11.6 [facility] Body fluid albumin measureme nt (mass/volume)on 03-04-2021 Albumin (Body fld) [Mass/Vol] 3.6 g/dL 3.2-5.5 [facility] Estimated glomerular filtrat ion rate (GFR) non- Americanon 03-04-2021 GFR/1.73 sq M predicted among non-blacks MDRD (S/P/Bld) [Vol rate/Area] 27 mL/Min [facility] Hematocrit [Volume Fraction] of Blood by Automated counton 03-04-2021 Hematocrit (Bld) [Volume fraction] 31.9 % 34.0-46.4 [facility] Otheron 03-04-2021 GFR/1.73 sq M.predicted MDRD (S/P/Bld) [Vol rate/Area] 33 mL/Min [facility] Comment on above: GFR estimated refere nce range: According to KDOQI guidelines, <60 ml/min/1.73m2 is sufficient to diagnose a patient with chronic kidney disease. Pharmacy Creatinine Clearance (Chem N/A [facility] Protein [Mass/volume] in Ser um or Plasmaon 03-04-2021 Protein [Mass/Vol] 6.6 g/dL 6.1-7.9 [facility] Serum globulin measurement b y calculation (mass/volume)on 03-04-2021 Globulin (S) [Mass/Vol] 3.0 g/dL [facility] Serum or plasma alanine fleming otransferase measurement without P-5'-P (enzymatic activion 03-04-2021 ALT No additional P-5'-P [Catalytic activity/Vol] 12 U/L 10-60 [facility] Serum or plasma albumin/glob ulin mass ratioon 03-04-2021 Albumin/Globulin [Mass ratio] 1.2 {ratio} [facility] Serum or plasma alkaline greyson sphatase measurement (enzymatic activity/volume)on 03-04-2021 ALP [Catalytic activity/Vol] 155 U/L 32-92 [facility] Serum or plasma aspartate am inotransferase measurement (enzymatic activity/volume)on 03-04-2021 AST [Catalytic activity/Vol] 12 U/L 10-42 [facility] Serum or plasma calcium terence urement (mass/volume)on 03-04-2021 Calcium [Mass/Vol] 8.8 mg/dL 8.2-10.2 [facility] Serum or plasma chloride oracio surement (moles/volume)on 03-04-2021 Chloride [Moles/Vol] 104 mmol/L 95-114 [facility] Serum or plasma creatinine m easurement with calculation of estimated glomerular filtron 03-04-2021 Creatinine [Mass/Vol] 1.82 mg/dL 0.44-1.03 [facility] Serum or plasma glucose terence urement (mass/volume)on 03-04-2021 Glucose [Mass/Vol] 109 mg/dL 70-100 [facility] Comment on above: ADA recommended refe rence rangeRandom Glucose Reference Range is dependent on time and content of last meal. Glucose of more than 200 mg/dL in a nonstressed, ambulatory subject supports the diagnosis of Diabetes Mellitus. Serum or plasma potassium me asurement (moles/volume)on 03-04-2021 Potassium [Moles/Vol] 5.6 mmol/L 3.5-5.1 [facility] Serum or plasma sodium measu rement (moles/volume)on 03-04-2021 Sodium [Moles/Vol] 135 mmol/L 136-146 [facility] Serum or plasma total biliru bin measurement (mass/volume)on 03-04-2021 Bilirubin [Mass/Vol] 1.0 mg/dL 0.3-1.2 [facility] Serum or plasma total carbon dioxide measurement (moles/volume)on 03-04-2021 CO2 [Moles/Vol] 23.9 mmol/L 22.0-30.0 [facility] Serum or plasma urea nitroge n measurement (mass/volume)on 03-04-2021 Urea nitrogen [Mass/Vol] 37 mg/dL 9- [facility] Vital Signs Date Time Vital Sign Value Performing Clinician Facility 02-12-2024 18:27-0400 Body mass index (BMI) [Ratio] 33.39 kg/m2 [employer] DO Work Phone: [facility] 02-12-2024 18:27-0400 Body weight 85.5 kg JosrmSellerng DO Work Phone: [facility] 02-12-2024 18:27-0400 Diastolic blood pressure 78 mm[Hg] Josr Furlong DO Work Phone: [facility] 02-12-2024 18:27-0400 Heart rate 76 /min Josr ULURUlong DO Work Phone: [facility] 02-12-2024 18:27-0400 Systolic blood pressure 138 mm[Hg] Josr Furlong DO Work Phone: [facility] 02-09-2024 12:10-0400 Body mass index (BMI) [Ratio] 33.18 kg/m2 JosrLimbolong DO Work Phone: [facility] 02-09-2024 12:10-0400 Body temperature 97.7 [degF] Josr Furlong DO Work Phone: [facility] 02-09-2024 12:10-0400 Body weight 84.96 kg Josr Furlong DO Work Phone: [facility] 02-09-2024 12:10-0400 Diastolic blood pressure 66 mm[Hg] Josr Furlong DO Work Phone: [facility] 02-09-2024 12:10-0400 Heart rate 82 /min Josr Furlong DO Work Phone: [facility] 02-09-2024 12:10-0400 Respiratory rate 18 /min Josr Furlong DO Work Phone: [facility] 02-09-2024 12:10-0400 SaO2% (BldA) [Mass fraction] 99 % Josr Furlong DO Work Phone: [facility] 02-09-2024 12:10-0400 Systolic blood pressure 117 mm[Hg] Josr Furlong DO Work Phone: [facility] 01-29-2024 17:52-0500 Body height 160 cm Josr Furlong DO Work Phone: [facility] 01-29-2024 17:52-0500 Body mass index (BMI) [Ratio] 34.56 kg/m2 Josr Furlong DO Work Phone: [facility] 01-29-2024 17:52-0500 Body temperature 98.49 [degF] Josr Furlong DO Work Phone: [facility] 01-29-2024 17:52-0500 Body weight 88.5 kg Josr Furlong DO Work Phone: [facility] 01-29-2024 17:52-0500 Diastolic blood pressure 65 mm[Hg] Josr Furlong DO Work Phone: [facility] 01-29-2024 17:52-0500 Heart rate 63 /min Josr Furlong DO Work Phone: [facility] 01-29-2024 17:52-0500 Respiratory rate 18 /min Josr Furlong DO Work Phone: [facility] 01-29-2024 17:52-0500 SaO2% (BldA) [Mass fraction] 98 % Josr Furlong DO Work Phone: [facility] 01-29-2024 17:52-0500 Systolic blood pressure 133 mm[Hg] Josr Furlong DO Work Phone: [facility] 01-06-2024 11:41-0500 Diastolic blood pressure 73 mm[Hg] MD Shaikh Serna Work Phone: [facility] 01-06-2024 11:41-0500 Heart rate 92 /min MD Shaikh Serna Work Phone: [facility] 01-06-2024 11:41-0500 Respiratory rate 16 /min MD Shaikh Serna Work Phone: [facility] 01-06-2024 11:41-0500 SaO2% (BldA) [Mass fraction] 97 % MD Shaikh Serna Work Phone: [facility] 01-06-2024 11:41-0500 Systolic blood pressure 152 mm[Hg] MD Shaikh Serna Work Phone: [facility] 01-06-2024 10:00-0500 Body height 157.48 cm MD Shaikh Serna Work Phone: [facility] 01-06-2024 10:00-0500 Body weight 86.18 kg MD Shaikh Serna Work Phone: [facility] 09-28-2023 11:08-0400 Body height 160.02 cm James Pereira Work Phone: [facility] [address] DO Work Phone: 08-20-2023 11:08-0400 Body mass index (BMI) [Ratio] Medical Reason Not Done James Pereira Work Phone: [facility] [address] DO Work Phone: 08-20-2023 11:08-0400 Diastolic blood pressure 52 mm[Hg] James Jasso [place] Work Phone: [facility] [address] DO Work Phone: 08-20-2023 11:08-0400 Heart rate 70 /min James Pereira Work Phone: [facility] [address] DO Work Phone: 08-20-2023 11:08-0400 Systolic blood pressure 110 mm[Hg] James Jasso [place] Work Phone: [facility] [address] DO Work Phone: 04-30-2022 10:57-0400 Body height 160.02 cm James Pereira Work Phone: [facility] 250 DO Work Phone: 04-30-2022 10:57-0400 Body mass index (BMI) [Ratio] 36.67 kg/m2 James Jasso [place] Work Phone: [facility] [facility] DO Work Phone: 04-30-2022 10:57-0400 Body surface area Derived from formula 1.96 m2 James Jasso [place] Work Phone: [facility] DO Work Phone: 04-30-2022 10:57-0400 Body weight 93.9 kg James Jasso [place] Work Phone: [facility] DO Work Phone: 04-30-2022 10:57-0400 Diastolic blood pressure 50 mm[Hg] James Pereira Work Phone: [facility] DO Work Phone: 04-30-2022 10:57-0400 Heart rate 64 /min James Pereira Work Phone: [facility] DO Work Phone: 04-30-2022 10:57-0400 Systolic blood pressure 120 mm[Hg] James Pereira Work Phone: [facility] DO Work Phone: 04-16-2022 00:00-0400 60 1 Ingrid Contreras DO Work Phone: [facility] DO Work Phone: Comment on above: [id number] 10-12-2021 14:30-0500 Body height Brian Sawyer Other [employer] Other 10-12-2021 14:30-0500 Body mass index (BMI) [Ratio] 36.61 kg/m2 Brian Sawyer Other [employer] Other 10-12-2021 14:30-0500 Body temperature 98.7 [degF] Brian Sawyer Other [employer] Other 10-12-2021 14:30-0500 Body weight 99.79 kg Brian Sawyer Other [employer] Other 10-12-2021 14:30-0500 Diastolic blood pressure 58 mm[Hg] Brian Sawyer Other [employer] Other 10-12-2021 14:30-0500 SaO2% (BldA) [Mass fraction] 92 % Brian Sawyer Other [employer] Other 10-12-2021 14:30-0500 Systolic blood pressure 94 mm[Hg] Brian Sawyer Other [employer] Other Encounters Encounter Date Encounter Type Care Provider Facility Start: 02-12-2024 ambulatory Josr mario [email or web address] Phone: [facility] Comment on above: Acute renal failure superimposed on stage 4 chronic kidney disease, unspecified acute renal failure type (CMS-HCC) (Primary Dx); Congestive heart failure, unspecified HF chronicity, unspecified heart failure type (CMS-HCC); Anemia associated with chronic renal failure; Hyperkalemia; Other abnormalities of gait and mobility; Muscle weakness (generalized) Start: 02-09-2024 ambulatory Josr mario [email or web address] Phone: [facility] Comment on above: Acute renal failure superimposed on stage 4 chronic kidney disease, unspecified acute renal failure type (CMS-HCC) (Primary Dx); Congestive heart failure, unspecified HF chronicity, unspecified heart failure type (CMS-HCC); Rhinovirus; Primary hypertension; Anemia associated with chronic renal failure; Hyperkalemia; Muscle weakness (generalized); Other abnormalities of gait and mobility; Class 1 obesity due to excess calories with serious comorbidity and body mass index (BMI) of 34.0 to 34.9 in adult; Atherosclerosis of lower [place] coronary artery of lower [place] heart without angina pectoris Start: 01-29-2024 ambulatory Josr mario Ci[employer] Work Phone: [facility] Comment on above: Acute renal failure superimposed on stage 4 chronic kidney disease, unspecified acute renal failure type (CMS-HCC) (Primary Dx); Congestive heart failure, unspecified HF chronicity, unspecified heart failure type (CMS-HCC); Primary hypertension; Rhinovirus; Anemia associated with chronic renal failure; Lumbosacral spondylosis without myelopathy; Class 1 obesity due to excess calories with serious comorbidity and body mass index (BMI) of 34.0 to 34.9 in adult; Adult failure to thrive; Iron deficiency anemia, unspecified iron deficiency anemia type; Sinus tachycardia; Polyneuropathy Start: 01-14-2024 End: 01-14-2024 ambulatory SHAIKH DAPHNE Not Available Start: 01-06-2024 End: 01-06-2024 ambulatory Schaeffer Daphne Facility:[facility] Start: 01-06-2024 End: 01-06-2024 Admission to same day surgery center MD Shaikh Serna Work Phone: [facility] [place] Work Phone: Start: 01-06-2024 End: 01-06-2024 ambulatory MD Shaikh Serna Work Phone: [facility] Work Phone: Start: 12-29-2023 Telephone encounter Trent Ramirez MD Work Phone: [facility] Start: 12-17-2023 End: 12-17-2023 ambulatory SCHAEFFER DAPHNE Not Available Start: 12-16-2023 End: 12-16-2023 ambulatory TRENT RAMIREZ Not Available Start: 12-02-2023 End: 12-02-2023 ambulatory SHAIKH SCARLETTSIMBA Not Available Start: 11-25-2023 Orders Only Not In System Ref Prov [facility] General Surgery Start: 11-19-2023 End: 11-24-2023 Emergency department patient visit JAMES PEREIRA [facility] Start: 11-12-2023 End: 11-12-2023 ambulatory ANTONY GRANT Not Available Start: 08-20-2023 Office outpatient vi sit 25 minutes James Pereira Work Phone: [facility] [address] DO Work Phone: Start: 08-20-[address] Ingrid Ibarra II Facility:[id number] Start: 12-27-2022 End: 12-27-2022 ambulatory LARA DIAB Facility: Start: 06-17-2022 Patient encounter procedure James Jasso [place] Work Phone: [facility] DO Work Phone: Start: 04-30-2022 Office outpatient vi sit 25 minutes James Pereira Work Phone: [facility] [facility] DO Work Phone: Start: 04-22-2022 Patient encounter procedure Ingrid Ben DO Work Phone: [facility] DO Work Phone: Start: 10-12-2021 End: 10-12-2021 ambulatory Brian Sawyer Other [facility] [employer] Other Start: 10-12-2021 Office outpatient vi sit 15 minutes Brian Sawyer [facility] Start: 03-04-2021 End: 03-04-2021 Patient encounter procedure James Gail [facility] Start: 07-22-2017 Ambulatory INGRID IBARRA Facil [id number] [...] Td Vaccines (2 - Td or Tdap) [facility] Start: 02-08-2025 Adult BMI Screening Adult BMI Screening [facility] Start: 01-28-2025 Adult BMI Screening Adult BMI Screening [facility] Start: 01-28-2025 Tobacco Screening Tobacco Screening [facility] Start: 01-21-2024 End: 01-21-2024 Patient encounter procedure 01/21/2024 1:50 PM EST Procedure Visit [facility] [address] [facility] [address] [place] [address] Antony Grant, DPEsperanza [address] [facility] [address] [place] [address] [facility] Start: 01-20-2024 End: 01-20-2024 Patient encounter procedure 01/20/2024 9:30 AM EST Office Visit [facility] [address] [place] [address] Shaikh Serna MD [address] [place] [address] [facility] Start: 01-14-2024 End: 01-14-2024 Patient encounter procedure 01/14/2024 11:00 AM EST Procedure Visit [facility] [address] [facility] [address] [place] [address] [facility] Start: 01-06-2024 [facility] Start: 01-06-2024 [facility] Start: 01-06-2024 Bone marrow sampling [facility] Start: 07-24-2023 Influenza vaccination [facility] Start: 07-10-2022 FUV, Provider: Ingrid Ibarra, Status: Pen, Time: 10:50 AM FUV, Provider: Ingrid Ibarra, Status: Pen, Time: 10:50 AM -[facility] 250 DO Work Phone: Start: 04-30-2022 FUV, Provider: Cristal Grant, Status: Pen, Time: 10:30 AM FUV, Provider: Cristal Grant, Status: Pen, Time: 10:30 AM [facility] DO Work Phone: Start: 01-15-2022 Adult BMI Screening Adult BMI Screening [facility] Start: 07-24-2018 Pneumococcal Vaccine: 65+ Years (2 - PCV) Pneumococcal Vaccine: 65+ Years (2 - PCV) [facility] Start: 2015 Fall Risk Screening Fall Risk Screening [facility] Start: 2000 Administration of varicella zoster vaccine Zoster (Shingles) Vaccine (1 of 2) [facility] Start: 04-15-1990 Screening for malignant neoplasm of breast Mammogram [facility] Start: 1968 Adult BMI Follow Up Plan Adult BMI Follow Up Plan [facility] Start: 1962 Depression Screening Depression Screening [facility] Start: 1962 Tobacco Screening Tobacco Screening [facility] Start: 1950 Medicare Annual Wellness (AWV) Medicare Annual Wellness (AWV) [facility] Start: 1950 Screening for malignant neoplasm of colon [facility] Start: 1950 Medicare Annual Wellness Visit Medicare Annual Wellness Visit [facility] Basophils [#/volume] in Blood by Automated count [facility] Basophils/100 leukoc ytes in Blood by Automated count [facility] Eosinophils/100 leukocytes in Blood by Automated count [facility] Erythrocyte distribu tion width [Ratio] by Automated count [facility] Erythrocytes [#/volu me] in Blood [facility] Hematocrit [Volume Fraction] of Blood [facility] Hemoglobin [Mass/vol ume] in Blood [facility] Leukocytes [#/volume ] corrected for nucleated erythrocytes in Blood by Automated coun [facility] Leukocytes [#/volume ] in Blood [facility] Lymphocytes [#/volum e] in Blood by Automated count [facility] Lymphocytes/100 leukocytes in Blood by Automated count [facility] MCH [Entitic mass] b y Automated count [facility] MCHC [Mass/volume] b y Automated count [facility] MCV [Entitic volume] by Automated count [facility] Monocytes [#/volume] in Blood by Automated count [facility] Monocytes/100 leukoc ytes in Blood by Automated count [facility] Neutrophils [#/volum e] in Blood by Automated count [facility] Neutrophils/100 leukocytes in Blood by Automated count [facility] Nucleated erythrocyt es [Presence] in Blood by Automated count [facility] Patient Education [facility] Bone Marrow Aspiration or Biopsy [facility] Work Phone: Platelet mean volume [Entitic volume] in Blood by Automated count [facility] Immunizations Immunization Date Immunization Notes Care Provider Fa cility 12-25-2021 tetanus toxoid, redu zak diphtheria toxoid, and acellular pertussis vaccine, adsorbed [place] Work Phone: [facility] 09-11-2020 influenza virus vacc ine, unspecified formulation James E [place] Work Phone: [facility] 250 DO Work Phone: 09-08-2020 Fluzone QIV High-Dos e 65YR+ [place] [facility] 09-08-2020 influenza virus vacc ine, unspecified formulation Not Ref Prov [employer] 10-14-2019 influenza, high dose seasonal, preservative-free James [facility] 07-24-2017 pneumococcal polysaccharide vaccine, 23 valent James E [place] Work Phone: [facility] 250 DO Work Phone: 08-28-2015 influenza, high dose seasonal, preservative-free James E [place] Work Phone: [facility] 250 DO Work Phone: influenza virus vacc ine, unspecified formulation James E [place] Work Phone: [facility] 250 DO Work Phone: Comment on above: Aug 20122012 Payers Date Payer Category Payer Self-pay [id number] 2023 Medicare [id number] 2023 Private Health Insurance [id number] 1959 Private Health Insurance [id number] 1950 Unknown [id number] 1950 Unknown [id number] 1950 Unknown [id number] 1950 Unknown [id number] 1950 Unknown [id number] 1950 Unknown [id number] 1950 Unknown [id number] 1950 Unknown [id number] 1950 Unknown [id number] Medicare [id number] Private Health Insurance [facility] [id number] Private Health Insurance [employer] MCR PFFS [id number] Unknown [employer] Unknown [id number] Social History Date Type Detail Facility Start: 07-05-2018 End: 10-02-2020 Tobacco smoking status [facility] Ex-smoker (finding) [facility] Work Phone: Start: 1950 Sex Assigned At Female F [facility] Start: 12-18-2020 End: 01-15-2021 No illicit drug use No illicit drug use -[facility] DO Work Phone: Comment on above: Quit 1993; 4 cups tea daily; Start: 12-18-2020 End: 01-15-2021 Sex Assigned At [facility] [employer] Other History of tobacco use [facility] Start: 07-05-2018 End: 12-02-2023 Tobacco use and exposure Smokeless [facility] Start: 01-15-2021 End: 01-29-2024 Alcohol intake Current non-drinker of alcohol (finding) [facility] Housing Instability Unknown [facility] Start: 1950 End: 1950 Sex Assigned At Not on file [facility] Start: 12-02-2023 Tobacco smoking stat [facility] Never smoked tobacco [facility] History of tobacco use Passive smoker [facility] Start: 12-17-2023 Alcohol intake Lifetime non-d rony (finding) [facility] Start: 11-12-2023 Alcohol Comment caffeine intak e: 1-2 cups per day (pepsi, ice tea) [facility] Healthcare Medical Equipment Procedure Code Equipment Code Equipment Original Text Equipment Identifier Dates FDA Start: 10-13-2019 [id number] FDA Start: 10-13-2019 [id number] FDA Start: 10-13-2019 CL CLOSURE DEVIC E ANGIOSEAL 6F FDA Start: 10-13-2019 Goals Date Patient Goal Desired Activity /State Clinical Notes 10-12-2021 to 02-12-2024 Josr Leon, DO - 02/12/2024 11:59 PM EDKelly Leon, DO - 02/09/2024 11:59 PM Paul Leon, DO - 01/29/2024 5:52 PM ESTTelephone Encounter - Christina Munroe - 12/29/2023 3:01 PM EST Note Date & Type Note Facility 02-12-2024 History of Present illness Narrative Patient Name: Kusum Huerta Date of : 1950 Date of Service: 02/12/2024 Facility: [facility] Type of Visit: Skilled Visit Subjective Kusum Huerta is a 73 y.o. female seen today at nursing home facility for No chief complaint on file. . Kusum was seen again due to abnormal and worsening labs. Recheck of her hemoglobin on Thursday was 7.6 and now it is 7.1 today. Her potassium was normal on Thursday at 4.7. GFR actually improved to 54. She came in with the history of stage 4 chronic kidney disease. She is on an iron supplement. Her stools are black. She does not have any abdominal pain. She sees a head of research & insights for her anemia. She said she has been checked before for blood loss and they do not know where it is coming from. Whe was taking aspirin 325 daily And Plavix in the past but not taking either one here. She says she feels fine. She does not have any dizziness, lightheadedness or shortness a breath. Does not feel like she is going to pass out. She is hoping to go home tomorrow is still wants to go home tomorrow. Allergies: Nsaids (non-steroidal anti-inflammatory drug) Code Status: FULL CODE BP 138/78 Pulse 76 Wt 85.5 kg (188 lb 8 oz) BMI 33.39 kg/m Physical Exam Constitutional: General: She is awake. She is not in acute distress. Appearance: She is obese. She is not ill-appearing. Comments: Pt in chair in room. HENT: Head: Normocephalic. Eyes: Extraocular Movements: Extraocular movements intact. Conjunctiva/sclera: Conjunctivae normal. Cardiovascular: Rate and Rhythm: Normal rate and regular rhythm. Pulses: Normal pulses. Heart sounds: Murmur (LA grad 4/6) heard. Pulmonary: Effort: Pulmonary effort is normal. No respiratory distress. Breath sounds: Normal breath sounds. No wheezing, rhonchi or rales. Musculoskeletal: Cervical back: Neck supple. Right lower le+ Pitting Edema present. Left lower le+ Pitting Edema present. Skin: General: Skin is warm and dry. Neurological: General: No focal deficit present. Mental Status: She is alert and oriented to person, place, and time. Psychiatric: Attention and Perception: Attention normal. Mood and Affect: Mood and affect normal. Speech: Speech normal. Behavior: Behavior normal. Behavior is cooperative. Thought Content: Thought content normal. Cognition and Memory: Cognition normal. Judgment: Judgment normal. HGB was 7.6 and now is 7.1. It was 10 at the hospital. Assessment/Plan Summary / Assessment / Plan 1. Acute renal failure superimposed on stage 4 chronic kidney disease, unspecified acute renal failure type (CMS-HCC) 2. Congestive heart failure, unspecified HF chronicity, unspecified heart failure type (CMS-HCC) 3. Anemia associated with chronic renal failure 4. Hyperkalemia 5. Other abnormalities of gait and mobility 6. Muscle weakness (generalized) Kusum is hoping to go home tomorrow. She seems to be stable clinically although her hemoglobin is declining. She promises to call her PCP 1st thing on Thursday to get in and also her head of research & insights. I ordered a CBC for her to get on Thursday. She is to go to the emergency room if she has any dizziness, lightheadedness or shortness a breath or other problems. She agrees to do so. We will plan on discharge tomorrow. She has done well with therapy. ELECTRONICALLY SIGNED BY: Josr Leon DO documented in this encounter [facility] 02-09-2024 History of Present illness Narrative Patient Name: Kusum Huerta Date of : 1950 Date of Service: 02/09/2024 Facility: [facility] Type of Visit: Skilled Visit Subjective Kusum Huerta is a 73 y.o. female seen today at nursing home facility for therapy visit. Kusum is in therapy and doing very well. She walk for 30 ft today with a wheeled walker in therapy. She would like to go home this weekend if possible. Nurses reported abnormal labs for my review. Allergies: Patient has no known allergies. Code Status: FULL CODE BP 117/66 Pulse 82 Temp 36.5 C (97.7 F) Resp 18 Wt 85 kg (187 lb 4.8 oz) SpO2 99% BMI 33.18 kg/m Physical Exam Constitutional: General: She is awake. She is not in acute distress. Appearance: She is obese. She is not ill-appearing. Comments: Pt in chair in room. HENT: Head: Normocephalic. Eyes: Extraocular Movements: Extraocular movements intact. Conjunctiva/sclera: Conjunctivae normal. Cardiovascular: Rate and Rhythm: Normal rate and regular rhythm. Pulses: Normal pulses. Heart sounds: Murmur (LA grad 4/6) heard. Pulmonary: Effort: Pulmonary effort is normal. No respiratory distress. Breath sounds: Normal breath sounds. No wheezing, rhonchi or rales. Musculoskeletal: Cervical back: Neck supple. Right lower le+ Pitting Edema present. Left lower le+ Pitting Edema present. Skin: General: Skin is warm and dry. Neurological: General: No focal deficit present. Mental Status: She is alert and oriented to person, place, and time. Psychiatric: Attention and Perception: Attention normal. Mood and Affect: Mood and affect normal. Speech: Speech normal. Behavior: Behavior normal. Behavior is cooperative. Thought Content: Thought content normal. Cognition and Memory: Cognition normal. Judgment: Judgment normal. K+ 6.0 CBC not done due to insufficient quantity. It was also slightly hemolyzed which may have affected potassium level GFR 37 Total protein 5.4-L Summary / Assessment / Plan 1. Acute renal failure superimposed on stage 4 chronic kidney disease, unspecified acute renal failure type (CMS-HCC) 2. Congestive heart failure, unspecified HF chronicity, unspecified heart failure type (CMS-HCC) 3. Rhinovirus 4. Primary hypertension 5. Anemia associated with chronic renal failure 6. Hyperkalemia 7. Muscle weakness (generalized) 8. Other abnormalities of gait and mobility 9. Class 1 obesity due to excess calories with serious comorbidity and body mass index (BMI) of 34.0 to 34.9 in adult 10. Atherosclerosis of lower b[place] coronary artery of lower brule heart without angina pectoris Recheck potassium tomorrow with CBC. Continue therapy to reach maximum improvement. Possible discharge to home this weekend. Continue other orders as directed. ELECTRONICALLY SIGNED BY: Josr Leon DO documented in this encounter [employer] 01-29-2024 History of Present illness Narrative Patient Name: Kusum Huerta Date of : 1950 Date of Service: 01/29/2024 Facility: [facility] Type of Visit: Admission H&P Subjective Kusum Huerta is a 73 y.o. female seen today at nursing home facility for admission H&P. Kusum presents to [facility] from [facility] where she was admitted for adult failure to thrive, SHANKAR due to dehydration, rhinovirus, sinus tachycardia and hypertension. She has multiple other problems such as CHF and a polyneuropathy which leads to her debility. She lives at home with her daughter and 2 grand-daughters in her home. She is . He has had 4 heart attacks and 1 stent placed. She was walking prior to her hospitalization. Her home is wheelchair accessible as she had a wheelchair she used for long distances. She has no new problems to report tonight. She is eating ok. She doesn't have any CP or SOB. She thought she was drinking enough before she went into the hospital. She is seeing a neurologist and is looking to get IV infusions for her neuropathy. 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, Right cheek Chronic back pain HTN (hypertension) IA (myocardial infarction) ([facility]) 2013 1 stent Obesity Past Surgical History: Procedure Laterality Date APPENDECTOMY CAROTID STENT r/t 1 collapsed 09/2019 CHOLECYSTECTOMY HYSTERECTOMY INJECTION MEDIAL BRANCH NERVE BLOCK: left L45 51 Left 02/25/2019 Performed by Ingrid Beckman MD at [facility] INJECTION MEDIAL BRANCH NERVE BLOCK: left L45 51 Left 12/31/2018 Performed by Ingrid Beckman MD at [facility] INJECTION MEDIAL BRANCH NERVE BLOCK: RIGHT [id number] Right 08/27/2018 Performed by Ingrid Beckman MD at [facility] INJECTION SI JOINT Left 08/12/2019 Performed by Ingrid Beckman MD at [facility] INJECTION SI JOINT Left SI Joint Left 06/15/2020 Performed by Ingrid Beckman MD at [facility] RADIO FREQUENCY ABLATION: left L45 51 Left 04/15/2019 Performed by Ingrid Beckman MD at [facility] RADIO FREQUENCY ABLATION: right L45 [id number] Right 05/02/2019 Performed by Ingrid Beckman MD at [facility] RIGHT L3/4, 4/5, 5/1 MBB Right 07/23/2018 Performed by Ingrid Beckman MD at [facility] TOTAL KNEE ARTHROPLASTY Left No family history on file. See med list Allergies: Patient has no known allergies. Code Status: FULL CODE The following portions of the patient's history were reviewed and updated as appropriate: allergies, current medications, past family history, past medical history, past social history, past surgical history, problem list, and medication reconciliation was completed including current medication and post discharge medication. Review of Systems Constitutional: Negative. HENT: Negative. Eyes: Negative. Respiratory: Negative. Cardiovascular: Positive for leg swelling. Gastrointestinal: Negative. Endocrine: Negative. Musculoskeletal: Positive for arthralgias, back pain and gait problem. Allergic/Immunologic: Negative. Neurological: Positive for weakness and numbness. Psychiatric/Behavioral: Negative. Objective BP 133/65 Pulse 63 Temp 36.9 C (98.5 F) Resp 18 Ht 160 cm (5' 3 ) Wt 88.5 kg (195 lb 1.6 oz) SpO2 98% BMI 34.56 kg/m Physical Exam Exam conducted with a medical numerical control operator present (granddaughter present). Constitutional: General: She is awake. Appearance: She is obese. Comments: Pt in chair in room. HENT: Head: Normocephalic. Eyes: Extraocular Movements: Extraocular movements intact. Conjunctiva/sclera: Conjunctivae normal. Cardiovascular: Rate and Rhythm: Normal rate and regular rhythm. Pulses: Normal pulses. Heart sounds: Murmur (LA grad 4/6) heard. Pulmonary: Effort: Pulmonary effort is normal. No respiratory distress. Breath sounds: Normal breath sounds. No wheezing or rales. Abdominal: General: Bowel sounds are normal. Palpations: Abdomen is soft. Tenderness: There is no abdominal tenderness. Musculoskeletal: Cervical back: Neck supple. Right lower le+ Pitting Edema present. Left lower le+ Pitting Edema present. Skin: General: Skin is warm and dry. Neurological: General: No focal deficit present. Mental Status: She is alert and oriented to person, place, and time. Psychiatric: Attention and Perception: Attention normal. Mood and Affect: Mood and affect normal. Speech: Speech normal. Behavior: Behavior normal. Behavior is cooperative. Thought Content: Thought content normal. Cognition and Memory: Cognition normal. Assessment/Plan Summary / Assessment / Plan 1. Acute renal failure superimposed on stage 4 chronic kidney disease, unspecified acute renal failure type (CMS-HCC) 2. Congestive heart failure, unspecified HF chronicity, unspecified heart failure type (CMS-HCC) 3. Primary hypertension 4. Rhinovirus 5. Anemia associated with chronic renal failure 6. Lumbosacral spondylosis without myelopathy 7. Class 1 obesity due to excess calories with serious comorbidity and body mass index (BMI) of 34.0 to 34.9 in adult 8. Adult failure to thrive 9. Iron deficiency anemia, unspecified iron deficiency anemia type 10. Sinus tachycardia 11. Polyneuropathy Admit for therapies. Home medications. Good rehab potential. Hopefully with be discharged home. Full code. Will follow. FITNESS PROFESSIONAL will see next week in my absence. ELECTRONICALLY SIGNED BY: Josr Leon DO documented in this encounter [facility] 12-30-2023 Telephone encounter Note I called patient and let her know Dr. Ramirez sent in another round of steroids. I left message as no answer. [facility] Work Phone: 12-30-2023 Miscellaneous Notes I called [...] Please advise. documented in this encounter [facility] 12-29-2023 Telephone encounter Note Called patient to reschedule EMG tomorrow due to no tech in office. Patient states that she has four days left of steroid and has no more refill. Wanted to let Dr. Ramirez know and wasn't sure if she needed another rx. Please advise. [facility] 12-27-2022 Note PROCEDURE: XR HAND L T [...] authenticated by: RODERICK ESTRELLA Date: 2022-12-27 15:58 [facility] 12-27-2022 Note PROCEDURE: XR HAND L T [...] by: RODERICK ESTRELLA Date: 2022-12-27 15:58 [facility] 10-12-2021 Evaluation note Encounter Date Diagnosis Assessment [...] Patient care instructions given in writting by [facility] document. [employer] Other Evaluation note* Diagnosis Iron deficiency anemia due to chronic blood loss Iron deficiency anemia secondary to blood loss (chronic) Idiopathic progressive neuropathy documented in this encounter [facility] HealthcareEvaluation noteNo assessment information availableReg[facility] Work Phone: Evaluation note* Diagnosis Acute renal failure superimposed on stage 4 chronic kidney disease, unspecified acute renal failure type (CMS-HCC)- Primary Congestive heart failure, unspecified HF chronicity, unspecified heart failure type (CMS-HCC) Primary hypertension Unspecified essential hypertension Rhinovirus Rhinovirus infection in conditions classified elsewhere and of unspecified site Anemia associated with chronic renal failure Anemia in chronic kidney disease Lumbosacral spondylosis without myelopathy Class 1 obesity due to excess calories with serious comorbidity and body mass index (BMI) of 34.0 to 34.9 in adult Adult failure to thrive Iron deficiency anemia, unspecified iron deficiency anemia type Sinus tachycardia Other specified cardiac dysrhythmias Polyneuropathy Unspecified hereditary and idiopathic peripheral neuropathy documented in this [facility] Diagnosis Acute renal failure superimposed on stage 4 chronic kidney disease, unspecified acute renal failure type (CMS-HCC)- Primary Congestive heart failure, unspecified HF chronicity, unspecified heart failure type (CMS-HCC) Rhinovirus Rhinovirus infection in conditions classified elsewhere and of unspecified site Primary hypertension Unspecified essential hypertension Anemia associated with chronic renal failure Anemia in chronic kidney disease Hyperkalemia Hyperpotassemia Muscle weakness (generalized) Other abnormalities of gait and mobility Class 1 obesity due to excess calories with serious comorbidity and body mass index (BMI) of 34.0 to 34.9 in adult Atherosclerosis of lower b[place] coronary artery of lower [place] heart without angina pectoris documented [facility]* Diagnosis Acute renal failure superimposed on stage 4 chronic kidney disease, unspecified acute renal failure type ([facility])- Primary Congestive heart failure, unspecified HF chronicity, unspecified heart failure type ([facility]) Anemia associated with chronic renal failure Anemia in chronic kidney disease Hyperkalemia Hyperpotassemia Other abnormalities of gait and mobility Muscle weakness (generalized) documented [facility] general Narrative - Reported* Type Description Date Medical History hypertension Medical History chronic kidney disease stage 3 Surgical History gall bladder Surgical History appendectomy Surgical History knee replacement, left Surgical History HEART CATH WITH STENT PLACEMENT X1 Hospitalization History see above Hospitalization History URINARY TRACT INFECTION 05/2020 Hospitalization History BLOOD PRESSURE ISSUES [employer] Other History of Present illness Narrative* The [...] medication regimen. She denies medication side effects. [facility] DO Work Phone: History of Present illness [...] diet and weight loss were again advocated. -[facility] [address] DO Work Phone: InstructionsNot on filedocumented in this encounter [facility] System[facility]ructionsNot on filedocumented in this encounter [facility] SystemInstructionsNot on filedocumented in this encounter [facility] SystemInstructionsNot on filedocumented in this encounter [facility] Summary Purpose Family History Relationship Condition Age at Onset Recorded Date/T [...] Unknown sister Heart disease Unknown Advance Directives Advance Directive Response Recorded Date/ Time Advance Directives No April 22 8 8:16am Advance Directive Response Recorded Date/ Time Advance Directives No April 22 8 7:16am Chief Complaint and Reason for Visit Chief Complaint See order Chief Complaint Anemia Assessments No Assessments Information Available Chief Complaint * Seem to be doing good * KUSUM HUERTA is being seen for follow-up of a hospitalization for chest pain. * Patient was recently hospitalized at [facility]. The patient was seen in Cardiology consult with subsequent cardiovascular management by [facility]. Hospitalization records have been reviewed. * Reason for Cardiology Consultation: ACS * Consulting Map Editor: Dr. Contreras * Cardiovascular testing: cardiac cath [...] section and content) DATE CREATED AUTHOR 05/19/2018 [facility] Healthcare DATE CREATED AUTHOR AUTHOR'S ORGANIZ ATION 12/29/2022 [facility] DATE CREATED AUTHOR AUTHOR'S ORGANIZ ATION 08/28/2023 [employer] DATE CREATED AUTHOR AUTHOR'S ORGANIZ ATION 10/07/2023 [facility] DATE CREATED AUTHOR AUTHOR'S ORGANIZ ATION 11/24/2023 [facility] DATE CREATED AUTHOR AUTHOR'S ORGANIZ ATION 01/07/2024 [facility] DATE CREATED AUTHOR AUTHOR'S ORGANIZ ATION 01/22/2024 [facility] EPIC REASON FOR VISIT (unrecogniz ed section and content) #13 NOT VACCINATED, NO POS C OVID EXP, COUGH, CONGESTION, FEVER Care Teams (unrecognized sec tion and content) [employer] Manager Relationship Specialty Start Date End Date James Pereira DO [address] [place] [address] PCP - General 06/30/18 [employer] Relationship Specialty Start Date End Date Shaikh Serna MD [address] [place] [address] PCP - General Internal Medicine 12/17/23 Team Status: Active Member Role Status Dates Shaikh Daphne MD Primary Care Provider Active Team Status: Inactive Member Role Status Dates Mary Espana MD Attending Provider Active St art: January 06, 2024 End: January 06, 2024 Shaikh Daphne MD Primary Care Provider Active Start: January 06, 2024 End: January 06, 2024 [employer] Manager Relationship Specialty Start Date End Date James Pereira DO [address] [place] [address] PCP - General 06/30/18 [employer] Manager Relationship Specialty [place] [address] [place] [id number] PCP - General 06/30/18 [employer] Manager Relationship Specialty [place] [address] [place] [id number] PCP - General 06/30/18 Goals (unrecognized section and content) Goals may [...] BE BASED ON THE PRIMARY CLINICAL RECORDS. [facility] [employer] [facility] provides no warranty or guarantee of the accuracy or completeness of information in this document.
[2024-02-17 11:33] LABS: Basophils Percent Auto 0.6 % (0.2-2.0); Eosinophils Absolute Auto 0.1 10^3/uL (0.0-0.7); Eosinophils Percent Auto 1.3 % (0.9-7.0); Hematocrit 26.5 % (36.0-48.0); Hemoglobin 7.5 g/dL (12.0-16.0); Immature Granulocytes Abs Auto 0.04 10^3/uL (0.00-0.03); Immature Granulocytes Pct Auto 0.6 % (0.0-0.5); Lymphocytes Absolute Auto 1.2 10^3/uL (1.2-3.8); Mean Corpuscular HGB Conc 28.3 g/dL (29.9-35.2); Mean Corpuscular Hemoglobin 25.4 pg (26.7-34.0); Mean Corpuscular Volume 89.8 fL (81.0-99.0); Mean Platelet Volume 9.8 fL (9.5-13.5); Monocytes Absolute Auto 0.5 10^3/uL (0.3-0.8); Monocytes Percent Auto 6.9 % (1.7-12.0); Neutrophils Absolute Auto 5.1 10^3/uL (1.4-6.5); Neutrophils Percent Auto 73.6 % (43.0-75.0); Platelet Count 177 10^3/uL (150-450); Red Blood Count 2.95 10^6/uL (4.20-5.40); Red Cell Distribution Width 16.7 % (11.0-15.0); White Blood Count 6.9 10^3/uL (4.0-11.0)
== END 2024-02-17 10:03 | disposition home or self-care (01) ==
LOC: LAB 10:04
PROVIDERS: PCP Internal Medicine; Visit Provider Family Medicine
DX: D64.9 Anemia, unspecified (principal)
CPT/HCPCS: 36415; 85025

== ENCOUNTER 2024-02-17 10:06 | Outpatient (OUT) | payer MEDICARE, SELFPAY ==
--- OUTSIDE RECORDS SUMMARY | 2024-02-17 10:15 | XMS_ITS | CCD ---
Author Organization [facility] Care Team Providers Care Switchman Supervisor Name Role Phone INGRID IBARRA Unavailable Unavailable INGRID IBARRA Unavailable Unavailable James Pereira Primary Care Provider [phone] NON, STAFF, Attending Provider Unavailable Unavailable Unavailable [...] Provider Shaikh Serna MD Primary Care Provider [phone] MD Mary Espana Attending Provider [phone] MD Laury Serna Primary Care Provider [phone] Shaikh Serna Primary Care Unavailable Mary Espana [...] mouth every 6 (six) hours 0 Active [id number] 200 actuat albuterol 0.09 mg/actuat metered dose inhaler (3 sources) beta2-Adrenergic Agonist Start: 12-02-2023 End: 01-01-2024 take 2 puff(s) by inhalation every four hours for wheezing albuterol HFA 90 mcg/act inhaler Indications: Chronic obstructive pulmonary disease, unspecified COPD type ([facility]) Inhale 2 puffs every 4 (four) [...] Ordered: 20-Aug-2023 DO Active 168 hr cloNIDine 0.91588 mg/hr transdermal system (6 sources) Central alpha-2 [...] Start: 10-12-2021 take 2 tablets by mo [facility] every twenty-four hours predniSONE 20 MG [...] Start: 06-05-2020 take 1 capsule by mo [facility] once daily at mealtime Vitamin B [...] medications] Episodic Other aftercare (1 source) 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 Comment on above: A hematocrit value g reater than 55% may lead to inaccurate results in coagulation testing. Patients having hematocrit values >55% require a special collection tube for coagulation studies. Please contact the laboratory at [phone] guided bone marrow bx/asp iron 01-06-2024 CT guided bone marrow bx/aspir [facility] Main [place] [id number] CT Scan Report Signed Patient: Kusum Huerta MR#: [id number] [birth year] : 1950 Acct:[id number] Age/Sex: 73 / F ADM Date: 01/06/24 Loc: CT Room: Type: [facility] Attending Dr: Mary Espana MD [...] Yaw Deluca M.D.01/06/2024 2:06 PM Dictation Location: [place] [address] Transcribed By: [facility] 01/06/24 1406 Dictated By: Yaw Deluca II, MD 01/06/24 1401 Signed By: 01/06/24 [address] [facility] Coagulation Profileon 2023 aPTT Coag (Bld) [Time] 24.6 s Low 25.1-36.[address] [facility] Comment on above: Order Comment: STAT FOR BX Result Comment: A he matocrit value greater than 55% may lead to inaccurate results in coagulation testing. Patients having hematocrit values >55% require a special collection tube for coagulation studies. Please contact the laboratory at [phone] for redraw instructions. PERFORMED BY: [place] [id number] PATHOLOGIST QUARTER BACKER CUCA VOGT M.D. Performed By: #### C BC, PLT, PP #### [address] INR Coag (PPP) [Relative time] 0.9 {INR} Normal [facility] Comment on above: Order Comment: STAT [...] By: #### C BC, PLT, PP #### [place] [id number] [facility] PT Coag (PPP) [Time] 10.4 s Normal 9.0-12.[address] [facility] Comment on above: Order Comment: STAT FOR BX Result Comment: A he matocrit value greater than 55% may lead to inaccurate results in coagulation testing. Patients having hematocrit values >55% require a special collection tube for coagulation studies. Please contact the laboratory at [phone] for redraw instructions. Performed By: #### C BC, PLT, PP #### [place] [id number] [facility] Complete Blood Count Auto Di ffon 01-06-2024 Basophils (Bld) [#/Vol] 0.0 10*3/uL Normal 0.0-0.[address] [facility] Comment on above: Order Comment: STAT FOR BX Result Comment: PERF ORMED BY: [place] [address] PATHOLOGIST QUARTER BACKER JIANLAN SUN M.D. Performed By: #### C BC, PLT, PP #### [address] Basophils/100 WBC (Bld) 0.1 % Normal . [facility] Comment on above: Order Comment: STAT FOR BX Performed By: #### C BC, PLT, PP #### [address] Eosinophils (Bld) [#/Vol] 0.0 10*3/uL Normal 0.0-0.[address] [facility] Comment on above: Order Comment: STAT FOR BX Performed By: #### C BC, PLT, PP #### [address] Eosinophils/100 WBC (Bld) 0.4 % Normal . [facility] Comment on above: Order Comment: STAT FOR BX Performed By: #### C BC, PLT, PP #### [address] Erythrocyte distribution width (RBC) [Ratio] 17.3 % High 11.9-15.[address] [facility] Comment on above: Order Comment: STAT FOR BX Performed By: #### C BC, PLT, PP #### [address] Hematocrit (Bld) [Volume fraction] 33.3 % Low 34.0-46.[address] [facility] Comment on above: Order Comment: STAT FOR BX Performed By: #### C BC, PLT, PP #### [address] Hemoglobin (Bld) [Mass/Vol] 10.4 g/dL Low 11.8-15.[address] [facility] Comment on above: Order Comment: STAT FOR BX Performed By: #### C BC, PLT, PP #### [address] Lymphocytes (Bld) [#/Vol] 0.7 10*3/uL Low 1.00-4.[address] [facility] Comment on above: Order Comment: STAT FOR BX Performed By: #### C BC, PLT, PP #### [address] Lymphocytes/100 WBC (Bld) 10.7 % Normal . [facility] Comment on above: Order Comment: STAT FOR BX Performed By: #### C BC, PLT, PP #### [address] MCH (RBC) [Entitic mass] 26.6 pg Normal 24.7-34.[address] [facility] Comment on above: Order Comment: STAT FOR BX Performed By: #### C BC, PLT, PP #### [address] MCV (RBC) [Entitic vol] 85.0 fL Normal 80-[address] [facility] Comment on above: Order Comment: STAT FOR BX Performed By: #### C BC, PLT, PP #### [address] Mean Corpuscular HGB Conc 31.3 g/dL Low 32.0-35.[address] [facility] Comment on above: Order Comment: STAT FOR BX Performed By: #### C BC, PLT, PP #### [place] [address] [place] Monocytes (Bld) [#/Vol] 0.7 10*3/uL Normal 0.0-0.[address] [facility] Comment on above: Order Comment: STAT FOR BX Performed By: #### C BC, PLT, PP #### [place] [address] [place] Monocytes/100 WBC (Bld) 9.4 % Normal . [facility] Comment on above: Order Comment: STAT FOR BX Performed By: #### C BC, PLT, PP #### [place] [address] [place] Neutrophils (Bld) [#/Vol] 5.5 10*3/uL Normal 1.8-7.[address] [facility] Comment on above: Order Comment: STAT FOR BX Performed By: #### C BC, PLT, PP #### [place] [address] [place] Neutrophils/100 WBC (Bld) 79.4 % Normal . [facility] Comment on above: Order Comment: STAT FOR BX Performed By: #### C BC, PLT, PP #### [facility] [address] NRBC% 0.1 /100{WBC} Normal 0-0.[address] [facility] Comment on above: Order Comment: STAT FOR BX Performed By: #### C BC, PLT, PP #### [facility] [address] Platelet mean volume (Bld) [Entitic vol] 7.7 fL Normal 6.3-10.[address] [facility] Comment on above: Order Comment: STAT FOR BX Performed By: #### C BC, PLT, PP #### [address] RBC (Bld) [#/Vol] 3.92 10*6/uL Normal 3.60-5.00 [facility] Comment on above: Order Comment: STAT FOR BX Performed By: #### C BC, PLT, PP #### [facility] [address] WBC (Bld) [#/Vol] 6.9 10*3/uL Normal 3.8-11.6 [facility] Comment on above: Order Comment: STAT FOR BX Performed By: #### C BC, PLT, PP #### [address] INR in Platelet poor plasma by Coagulation assayOrdered By: Mary Espana on 01-06-2024 INR Coag (PPP) [Relative time] 0.9 {INR} [facility] Comment on above: INR Therapeutic Rang [...] Platelets (Bld) [#/Vol] 136 10*3/uL Low 150-[address] [facility] Comment on above: Order Comment: STAT FOR BX Result Comment: PERF ORMED BY: [facility] [address] [facility] [id number] PATHOLOGIST QUARTER BACKER CUCA VOGT M.D. Performed By: #### C BC, PLT, PP #### [facility] [address] [place] [id number] [place] Platelets Auto (Bld) [#/Vol] Ordered By: Mary Espana on 01-06-2024 Platelets (Bld) [#/Vol] 136 10*3/uL 150-[address] [facility] Prothrombin time (PT)Ordered By: Mary Espana on 01-06-2024 PT Coag (PPP) [Time] 10.4 s 9.0-12.[address] [facility] Comment on above: A hematocrit value g reater than 55% may lead to inaccurate results in coagulation testing. Patients having hematocrit values >55% require a special collection tube for coagulation studies. Please contact the laboratory at [phone] for redraw instructions. Multiple labsOrdered By: Maureen Eckert on 11-23-2023 [employer] Height or Weight NOT Doneon 08-20-2023 Adult depression screening assessment No 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 Vitals Vital Signs Recorded: [id number] 11:08AM Heart Rate70, L Radial [id number], LUE, Sitting Etbnwyfhz55, LUE, Sitting Height5 ft 3 in Height [...] by: CHARLEY LUCAS Date: 2022-12-27 15:51 Normal [facility] XR RIBS LT PA Waqar 3 [...] calcified granuloma in the right lung base. [place] screws noted in the right humeral head. IMPRESSION: 1. No acute rib fracture identified. 2. No acute cardiopulmonary process. Electronically authenticated by: MARLON METCALF Date: 2022-12-27 15:50 Normal [facility] Tobacco Screening.on 022 Adult depression screening assessment No [facility] [employer] 250 DO Work Phone: Fall risk assessment a) No falls within the last year [facility] [employer] 250 DO Work Phone: Tobacco use status CPH[facility] b) No [facility] [employer] 250 DO Work Phone: COVID Quick Testingon 2020 Result Positive [employer] Other Automated blood platelet cou nt (count/volume)on 03-04-2021 Platelets (Bld) [#/Vol] 249 10*3/uL 150-450 [facility] Automated blood platelet oracio n volume measurementon 03-04-2021 Platelet mean volume (Bld) [Entitic vol] 8.2 fL 6.3-10.7 [facility] Automated erythrocyte distri bution width ratioon 03-04-2021 Erythrocyte distribution width (RBC) [Ratio] 17.4 % 11.9-15.3 [facility] Automated erythrocyte mean c orpuscular hemoglobin (mass per erythrocyte)on 03-04-2021 MCH (RBC) [Entitic mass] 27.2 pg 24.7-34.3 [facility] Automated erythrocyte mean c orpuscular hemoglobin concentration measurement (mass/volon 03-04-2021 MCHC (RBC) [Mass/Vol] 32.7 g/dL 32.0-35.0 [facility] Automated erythrocyte mean c orpuscular volumeon 03-04-2021 MCV (RBC) [Entitic vol] 83.2 fL 80-100 [facility] Blood erythrocytes automated count (number/volume)on 03-04-2021 RBC (Bld) [#/Vol] 3.83 10*6/uL 3.60-5.00 [facility] Blood hemoglobin measurement (mass/volume)on 03-04-2021 Hemoglobin (Bld) [Mass/Vol] 10.4 g/dL 11.8-15.4 [facility] Blood leukocytes automated c ount (number/volume)on 03-04-2021 WBC (Bld) [#/Vol] 9.9 10*3/uL 3.8-11.6 [facility] Body fluid albumin measureme nt (mass/volume)on 03-04-2021 Albumin (Body fld) [Mass/Vol] 3.6 g/dL 3.2-5.5 [facility] Estimated glomerular filtrat ion rate (GFR) non- Americanon 03-04-2021 GFR/1.73 sq M predicted among non-blacks MDRD (S/P/Bld) [Vol rate/Area] 27 mL/Min [facility] Hematocrit [Volume Fraction] of Blood by Automated counton 03-04-2021 Hematocrit (Bld) [Volume fraction] 31.9 % 34.0-46.4 [facility] Otheron 03-04-2021 GFR/1.73 sq M.predicted MDRD (S/P/Bld) [Vol rate/Area] 33 mL/Min [facility] Comment on above: GFR estimated refere nce range: According to KDOQI guidelines, <60 ml/min/1.73m2 is sufficient to diagnose a patient with chronic kidney disease. Pharmacy Creatinine Clearance (Chem N/A [facility] Protein [Mass/volume] in Ser um or Plasmaon 03-04-2021 Protein [Mass/Vol] 6.6 g/dL 6.1-7.9 [facility] Serum globulin measurement b y calculation (mass/volume)on 03-04-2021 Globulin (S) [Mass/Vol] 3.0 g/dL [facility] Serum or plasma alanine fleming otransferase measurement without P-5'-P (enzymatic activion 03-04-2021 ALT No additional P-5'-P [Catalytic activity/Vol] 12 U/L 10-60 [facility] Serum or plasma albumin/glob ulin mass ratioon 03-04-2021 Albumin/Globulin [Mass ratio] 1.2 {ratio} [facility] Serum or plasma alkaline greyson sphatase measurement (enzymatic activity/volume)on 03-04-2021 ALP [Catalytic activity/Vol] 155 U/L 32-92 [facility] Serum or plasma aspartate am inotransferase measurement (enzymatic activity/volume)on 03-04-2021 AST [Catalytic activity/Vol] 12 U/L 10-42 [facility] Serum or plasma calcium terence urement (mass/volume)on 03-04-2021 Calcium [Mass/Vol] 8.8 mg/dL 8.2-10.2 [facility] Serum or plasma chloride oracio surement (moles/volume)on 03-04-2021 Chloride [Moles/Vol] 104 mmol/L 95-114 [facility] Serum or plasma creatinine m easurement with calculation of estimated glomerular filtron 03-04-2021 Creatinine [Mass/Vol] 1.82 mg/dL 0.44-1.03 [facility] Serum or plasma glucose terence urement (mass/volume)on 03-04-2021 Glucose [Mass/Vol] 109 mg/dL 70-100 [facility] Comment on above: ADA recommended refe rence rangeRandom Glucose Reference Range is dependent on time and content of last meal. Glucose of more than 200 mg/dL in a nonstressed, ambulatory subject supports the diagnosis of Diabetes Mellitus. Serum or plasma potassium me asurement (moles/volume)on 03-04-2021 Potassium [Moles/Vol] 5.6 mmol/L 3.5-5.1 [facility] Serum or plasma sodium measu rement (moles/volume)on 03-04-2021 Sodium [Moles/Vol] 135 mmol/L 136-146 [facility] Serum or plasma total biliru bin measurement (mass/volume)on 03-04-2021 Bilirubin [Mass/Vol] 1.0 mg/dL 0.3-1.2 [facility] Serum or plasma total carbon dioxide measurement (moles/volume)on 03-04-2021 CO2 [Moles/Vol] 23.9 mmol/L 22.0-30.0 [facility] Serum or plasma urea nitroge n measurement (mass/volume)on 03-04-2021 Urea nitrogen [Mass/Vol] 37 mg/dL 9- [facility] Vital Signs Date Time Vital Sign Value Performing Clinician Facility 02-12-2024 18:27-0400 Body mass index (BMI) [Ratio] 33.39 kg/m2 AGNITiO DO Work Phone: [facility] 02-12-2024 18:27-0400 Body weight 85.5 kg JosrSignadyneng DO Work Phone: [facility] 02-12-2024 18:27-0400 Diastolic blood pressure 78 mm[Hg] Josr Furlong DO Work Phone: [facility] 02-12-2024 18:27-0400 Heart rate 76 /min Josr SchoolFeedlong DO Work Phone: [facility] 02-12-2024 18:27-0400 Systolic blood pressure 138 mm[Hg] Josr Furlong DO Work Phone: [facility] 02-09-2024 12:10-0400 Body mass index (BMI) [Ratio] 33.18 kg/m2 JosrPopCap Gameslong DO Work Phone: [facility] 02-09-2024 12:10-0400 Body temperature 97.7 [degF] Josr Furlong DO Work Phone: [facility] 02-09-2024 12:10-0400 Body weight 84.96 kg Josr Furlong DO Work Phone: [facility] 02-09-2024 12:10-0400 Diastolic blood pressure 66 mm[Hg] Josr Furlong DO Work Phone: [facility] 02-09-2024 12:10-0400 Heart rate 82 /min Josr Furlong DO Work Phone: [facility] 02-09-2024 12:10-0400 Respiratory rate 18 /min Josr Furlong DO Work Phone: [facility] 02-09-2024 12:10-0400 SaO2% (BldA) [Mass fraction] 99 % Josr Furlong DO Work Phone: [facility] 02-09-2024 12:10-0400 Systolic blood pressure 117 mm[Hg] Josr Furlong DO Work Phone: [facility] 01-29-2024 17:52-0500 Body height 160 cm Josr Furlong DO Work Phone: [facility] 01-29-2024 17:52-0500 Body mass index (BMI) [Ratio] 34.56 kg/m2 Josr Furlong DO Work Phone: [facility] 01-29-2024 17:52-0500 Body temperature 98.49 [degF] Josr Furlong DO Work Phone: [facility] 01-29-2024 17:52-0500 Body weight 88.5 kg Josr Furlong DO Work Phone: [facility] 01-29-2024 17:52-0500 Diastolic blood pressure 65 mm[Hg] Josr Furlong DO Work Phone: [facility] 01-29-2024 17:52-0500 Heart rate 63 /min Josr Furlong DO Work Phone: [facility] 01-29-2024 17:52-0500 Respiratory rate 18 /min Josr Furlong DO Work Phone: [facility] 01-29-2024 17:52-0500 SaO2% (BldA) [Mass fraction] 98 % Josr Furlong DO Work Phone: [facility] 01-29-2024 17:52-0500 Systolic blood pressure 133 mm[Hg] Josr Furlong DO Work Phone: [facility] 01-06-2024 11:41-0500 Diastolic blood pressure 73 mm[Hg] MD Shaikh Serna Work Phone: [facility] 01-06-2024 11:41-0500 Heart rate 92 /min MD Shaikh Serna Work Phone: [facility] 01-06-2024 11:41-0500 Respiratory rate 16 /min MD Shaikh Serna Work Phone: [facility] 01-06-2024 11:41-0500 SaO2% (BldA) [Mass fraction] 97 % MD Shaikh Serna Work Phone: [facility] 01-06-2024 11:41-0500 Systolic blood pressure 152 mm[Hg] MD Shaikh Serna Work Phone: [facility] 01-06-2024 10:00-0500 Body height 157.48 cm MD Shaikh Serna Work Phone: [facility] 01-06-2024 10:00-0500 Body weight 86.18 kg MD Shaikh Serna Work Phone: [facility] 09-28-2023 11:08-0400 Body height 160.02 cm James Pereira Work Phone: [facility] 600 DO Work Phone: 08-20-2023 11:08-0400 Body mass index (BMI) [Ratio] Medical Reason Not Done James Pereira Work Phone: [facility] 600 DO Work Phone: 08-20-2023 11:08-0400 Diastolic blood pressure 52 mm[Hg] James Jasso [place] Work Phone: [facility] 600 DO Work Phone: 08-20-2023 11:08-0400 Heart rate 70 /min James Pereira Work Phone: [facility] 600 DO Work Phone: 08-20-2023 11:08-0400 Systolic blood pressure 110 mm[Hg] James Jasso [place] Work Phone: [facility] 600 DO Work Phone: 04-30-2022 10:57-0400 Body height 160.02 cm James Pereira Work Phone: [facility] 250 DO Work Phone: 04-30-2022 10:57-0400 Body mass index (BMI) [Ratio] 36.67 kg/m2 James Jasso [place] Work Phone: [facility] 250 DO Work Phone: 04-30-2022 10:57-0400 Body surface area Derived from formula 1.96 m2 James Jasso [place] Work Phone: [facility] 250 DO Work Phone: 04-30-2022 10:57-0400 Body weight 93.9 kg James Jasso [place] Work Phone: [facility] [place] 250 DO Work Phone: 04-30-2022 10:57-0400 Diastolic blood pressure 50 mm[Hg] James Pereira Work Phone: [facility] [facility] DO Work Phone: 04-30-2022 10:57-0400 Heart rate 64 /min James Pereira Work Phone: [facility] 250 DO Work Phone: 04-30-2022 10:57-0400 Systolic blood pressure 120 mm[Hg] James Pereira Work Phone: [facility] [place] 250 DO Work Phone: 04-16-2022 00:00-0400 60 1 Ingrid Contreras DO Work Phone: [facility] [place] 250 DO Work Phone: Comment on above: [id number] 10-12-2021 14:30-0500 Body height Brian Sawyer Other [employer] Other 10-12-2021 14:30-0500 Body mass index (BMI) [Ratio] 36.61 kg/m2 Brian Sawyer Other [employer] Other 10-12-2021 14:30-0500 Body temperature 98.7 [degF] Brian Sawyer Other [employer] Other 10-12-2021 14:30-0500 Body weight 99.79 kg Brian Sawyer Other [employer] Other 10-12-2021 14:30-0500 Diastolic blood pressure 58 mm[Hg] Brian Sawyer Other [employer] Other 10-12-2021 14:30-0500 SaO2% (BldA) [Mass fraction] 92 % Brian Sawyer Other [employer] Other 10-12-2021 14:30-0500 Systolic blood pressure 94 mm[Hg] Brian Sawyer Other [employer] Other Encounters Encounter Date Encounter Type Care Provider Facility Start: 02-12-2024 ambulatory Josr mario [employer] Phone: [facility] Comment on above: Acute renal failure superimposed on stage 4 chronic kidney disease, unspecified acute renal failure type (CMS-HCC) (Primary Dx); Congestive heart failure, unspecified HF chronicity, unspecified heart failure type (CMS-HCC); Anemia associated with chronic renal failure; Hyperkalemia; Other abnormalities of gait and mobility; Muscle weakness (generalized) Start: 02-09-2024 ambulatory Josr mario [employer] Phone: [facility] [...] 34.0 to 34.9 in adult; Atherosclerosis of kashia coronary artery of kashia heart without angina pectoris Start: 01-29-2024 ambulatory Josr mario [employer] Work Phone: [facility] [...] Start: 01-06-2024 End: 01-06-2024 ambulatory Schaeffer Daphne Facility:[facility] Start: 01-06-2024 End: 01-06-2024 Admission to same day surgery center MD Shaikh Serna Work Phone: [facility] [place] Work Phone: Start: 01-06-2024 End: 01-06-2024 ambulatory MD Shaikh Serna Work Phone: [facility] Work Phone: Start: 12-29-2023 Telephone encounter Trent Ramirez MD Work Phone: [facility] Start: 12-17-2023 End: 12-17-2023 ambulatory SCHAEFFER DAPHNE Not Available Start: 12-16-2023 End: 12-16-2023 ambulatory TRENT RAMIREZ Not Available Start: 12-02-2023 End: 12-02-2023 ambulatory SHAIKH SCARLETTSIMBA Not Available Start: 11-25-2023 Orders Only Not In System Ref Prov [facility] General Surgery Start: 11-19-2023 End: 11-24-2023 Emergency department patient visit JAMES PEREIRA [facility] Start: 11-12-2023 End: 11-12-2023 ambulatory ANTONY GRANT Not Available Start: 08-20-2023 Office outpatient vi sit 25 minutes James Pereira Work Phone: [facility] 600 DO Work Phone: Start: 08-20-[address] Ingrid Ibarra II Facility:[id number] Start: 12-27-2022 End: 12-27-2022 ambulatory LARA DIAB Facility: Start: 06-17-2022 Patient encounter procedure James Jasso [place] Work Phone: [facility] 250 DO Work Phone: Start: 04-30-2022 Office outpatient vi sit 25 minutes James Pereira Work Phone: [facility] 250 DO Work Phone: Start: 04-22-2022 Patient encounter procedure Ingrid Ben DO Work Phone: [facility] 250 DO Work Phone: Start: 10-12-2021 End: 10-12-2021 ambulatory Brian Sawyer Other [facility] [email or web address] Other Start: 10-12-2021 Office outpatient vi sit 15 minutes Brian Sawyer [facility] Urgent [facility] Start: 03-04-2021 End: 03-04-2021 Patient encounter procedure James Gail -[facility] [place] Start: 07-22-2017 Ambulatory INGRID IBARRA Facil ity:[id number] [...] Td Vaccines (2 - Td or Tdap) [facility] Start: 02-08-2025 Adult BMI Screening Adult BMI Screening [facility] Start: 01-28-2025 Adult BMI Screening Adult BMI Screening [facility] Start: 01-28-2025 Tobacco Screening Tobacco Screening [facility] Start: 01-21-2024 End: 01-21-2024 Patient encounter procedure 01/21/2024 1:50 PM EST Procedure Visit [facility] [address] [facility] [address] [place] [address] Antony Grant, DPEsperanza [address] [facility] [address] [place] [address] [facility] Start: 01-20-2024 End: 01-20-2024 Patient encounter procedure 01/20/2024 9:30 AM EST Office Visit [facility] [address] [place] [address] Shaikh Serna MD [address] [place] [address] [facility] Start: 01-14-2024 End: 01-14-2024 Patient encounter procedure 01/14/2024 11:00 AM EST Procedure Visit [facility] [address] [facility] [address] [place] [address] [facility] Start: 01-06-[address] [facility] Start: 01-06-[address] [facility] Start: 01-06-2024 Bone marrow sampling [facility] Start: 07-24-2023 Influenza vaccination [facility] Start: 07-10-2022 FUV, Provider: Ingrid Ibarra, Status: Pen, Time: 10:50 AM FUV, Provider: Ingrid Ibarra, Status: Pen, Time: 10:50 AM -[facility] 250 DO Work Phone: Start: 04-30-2022 FUV, Provider: Cristal Grant, Status: Pen, Time: 10:30 AM FUV, Provider: Cristal Grant, Status: Pen, Time: 10:30 AM [facility] 250 DO Work Phone: Start: 01-15-2022 Adult BMI Screening Adult BMI Screening [facility] Start: 07-24-2018 Pneumococcal Vaccine: 65+ Years (2 - PCV) Pneumococcal Vaccine: 65+ Years (2 - PCV) [facility] Start: 2015 Fall Risk Screening Fall Risk Screening [facility] Start: 2000 Administration of varicella zoster vaccine Zoster (Shingles) Vaccine (1 of 2) [facility] Start: 04-15-1990 Screening for malignant neoplasm of breast Mammogram [facility] Start: 1968 Adult BMI Follow Up Plan Adult BMI Follow Up Plan [facility] Start: 1962 Depression Screening Depression Screening [facility] Start: 1962 Tobacco Screening Tobacco Screening [facility] Start: 1950 Medicare Annual Wellness (AWV) Medicare Annual Wellness (AWV) [facility] Start: 1950 Screening for malignant neoplasm of colon [facility] Start: 1950 Medicare Annual Wellness Visit Medicare Annual Wellness Visit [facility] Basophils [#/volume] in Blood by Automated count [facility] Basophils/100 leukoc ytes in Blood by Automated count [facility] Eosinophils/100 leukocytes in Blood by Automated count [facility] Erythrocyte distribu tion width [Ratio] by Automated count [facility] Erythrocytes [#/volu me] in Blood [facility] Hematocrit [Volume Fraction] of Blood [facility] Hemoglobin [Mass/vol ume] in Blood [facility] Leukocytes [#/volume ] corrected for nucleated erythrocytes in Blood by Automated coun [facility] Leukocytes [#/volume ] in Blood [facility] Lymphocytes [#/volum e] in Blood by Automated count [facility] Lymphocytes/100 leukocytes in Blood by Automated count [facility] MCH [Entitic mass] b y Automated count [facility] MCHC [Mass/volume] b y Automated count [facility] MCV [Entitic volume] by Automated count [facility] Monocytes [#/volume] in Blood by Automated count [facility] Monocytes/100 leukoc ytes in Blood by Automated count [facility] Neutrophils [#/volum e] in Blood by Automated count [facility] Neutrophils/100 leukocytes in Blood by Automated count [facility] Nucleated erythrocyt es [Presence] in Blood by Automated count [facility] Patient Education [facility] Bone Marrow Aspiration or Biopsy [facility] Work Phone: Platelet mean volume [Entitic volume] in Blood by Automated count [facility] Immunizations Immunization Date Immunization Notes Care Provider Fa cility 12-25-2021 tetanus toxoid, redu zak diphtheria toxoid, and acellular pertussis vaccine, adsorbed [place] E [place] Work Phone: [facility] 09-11-2020 influenza virus vacc ine, unspecified formulation James E [place] Work Phone: [facility] 250 DO Work Phone: 09-08-2020 Fluzone QIV High-Dos e 65YR+ [place] [facility] 09-08-2020 influenza virus vacc ine, unspecified formulation Not Ref Prov [employer] [facility] 10-14-2019 influenza, high dose seasonal, preservative-free James [facility] 07-24-2017 pneumococcal polysaccharide vaccine, 23 valent James E [place] Work Phone: [facility] 250 DO Work Phone: 08-28-2015 influenza, high dose seasonal, preservative-free James E [place] Work Phone: [facility] 250 DO Work Phone: influenza virus vacc ine, unspecified formulation James E [place] Work Phone: [facility] 250 DO Work Phone: Comment on above: Aug 20122012 Payers Date Payer Category Payer Self-pay [id number] 2023 Medicare [id number] 2023 Private Health Insurance [id number] 1959 Private Health Insurance [id number] 1950 Unknown [id number] 1950 Unknown [id number] 1950 Unknown [id number] 1950 Unknown [id number] 1950 Unknown [id number] 1950 Unknown [id number] 1950 Unknown [id number] 1950 Unknown [id number] 1950 Unknown [id number] Medicare [id number] Private Health Insurance [facility] [id number] Private Health Insurance [employer] MCR PFFS 1 [id number] Unknown [employer] Unknown [id number] Social History Date Type Detail Facility Start: 07-05-2018 End: 10-02-2020 Tobacco smoking status [facility] Ex-smoker (finding) [facility] Work Phone: Start: 1950 Sex Assigned At Female F [facility] Start: 12-18-2020 End: 01-15-2021 No illicit drug use No illicit drug use -[facility] 250 DO Work Phone: Comment on above: Quit 1993; 4 cups tea daily; Start: 12-18-2020 End: 01-15-2021 Sex Assigned At [facility] [email or web address] Other History of tobacco use Current smoker [facility] Start: 07-05-2018 End: 12-02-2023 Tobacco use and exposure Smokeless tobacco non-user [facility] Start: 01-15-2021 End: 01-29-2024 Alcohol intake Current non-drinker of alcohol (finding) [facility] Housing Instability Unknown [facility] Start: 1950 End: 1950 Sex Assigned At Not on file [facility] Start: 12-02-2023 Tobacco smoking stat [facility] Never smoked tobacco [facility] History of tobacco use Passive smoker [facility] Start: 12-17-2023 Alcohol intake Lifetime non-d rony (finding) [facility] Start: 11-12-2023 Alcohol Comment caffeine intak e: 1-2 cups per day (pepsi, ice tea) [facility] Healthcare Medical Equipment Procedure Code Equipment Code Equipment Original Text Equipment Identifier Dates FDA Start: 10-13-2019 [id number] FDA Start: 10-13-2019 [id number] FDA Start: 10-13-2019 CL CLOSURE DEVIC E [...] : 1950 Date of Service: 02/12/2024 Facility: [facility] Type of Visit: Skilled Visit Subjective Kusum Huerta is a 73 y.o. female seen today at residential facility for No chief complaint on file. [...] have any abdominal pain. She sees a marketing communications associate for her anemia. She said she has [...] Thursday to get in and also her marketing communications associate. I ordered a CBC for her to get on Thursday. She is to go to the emergency room if she has any dizziness, lightheadedness or shortness a breath or other problems. She agrees to do so. We will plan on discharge tomorrow. She has done well with therapy. ELECTRONICALLY SIGNED BY: Josr Leon DO documented in this encounter [facility] 02-09-2024 History of Present illness Narrative Patient Name: Kusum Huerta Date of : 1950 Date of Service: 02/09/2024 Facility: [facility] Type of Visit: Skilled Visit Subjective Kusum Huerta is a 73 y.o. female seen today at residential facility for therapy visit. Kusum is in [...] to 34.9 in adult 10. 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 Continue therapy to reach maximum improvement. Possible discharge to home this weekend. Continue other orders as directed. ELECTRONICALLY SIGNED BY: Josr Leon DO documented in this encounter [facility] 01-29-2024 History of Present illness Narrative Patient Name: Kusum Huerta Date of : 1950 Date of Service: 01/29/2024 Facility: [facility] Type of Visit: Admission H&P Subjective Kusum Huerta is a 73 y.o. female seen today at residential facility for admission H&P. Kusum presents to [facility] from [facility] where she was admitted for adult failure [...] neuropathy. 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, Right cheek Chronic back pain HTN (hypertension) GA (myocardial infarction) ([facility]) 2013 1 stent Obesity Past Surgical History: Procedure Laterality Date APPENDECTOMY CAROTID STENT r/t 1 collapsed 09/2019 CHOLECYSTECTOMY HYSTERECTOMY INJECTION MEDIAL BRANCH NERVE BLOCK: left L45 51 Left 02/25/2019 Performed by Ingrid Beckman MD at [facility] INJECTION MEDIAL BRANCH NERVE BLOCK: left L45 51 Left 12/31/2018 Performed by Ingrid Beckman MD at [facility] INJECTION MEDIAL BRANCH NERVE BLOCK: RIGHT [id number] Right 08/27/2018 Performed by Ingrid Beckman MD at [facility] INJECTION SI JOINT Left 08/12/2019 Performed by Ingrid Beckman MD at [facility] INJECTION SI JOINT Left SI Joint Left 06/15/2020 Performed by Ingrid Beckman MD at [facility] RADIO FREQUENCY ABLATION: left L45 51 Left 04/15/2019 Performed by Ingrid Beckman MD at [facility] RADIO FREQUENCY ABLATION: right L45 [id number] Right 05/02/2019 Performed by Ingrid Beckman MD at [facility] RIGHT L3/4, 4/5, 5/1 MBB Right 07/23/2018 Performed by Ingrid Beckman MD at [facility] TOTAL KNEE ARTHROPLASTY Left No family history [...] kg/m Physical Exam Exam conducted with a geographic information scientist present (granddaughter present). Constitutional: General: She is [...] be discharged home. Full code. Will follow. LINEN ROOM WORKER will see next week in my absence. ELECTRONICALLY SIGNED BY: Josr Leon DO documented in this encounter [facility] 12-30-2023 Telephone encounter Note I called patient and let her know Dr. Ramirez sent in another round of steroids. I left message as no answer. [facility] Work Phone: 12-30-2023 Miscellaneous Notes I called [...] rx. Please advise. documented in this encounter [facility] 12-29-2023 Telephone encounter Note Called patient to reschedule EMG tomorrow due to no tech in office. Patient states that she has four days left of steroid and has no more refill. Wanted to let Dr. Ramirez know and wasn't sure if she needed another rx. Please advise. [facility] 12-27-2022 Note PROCEDURE: XR HAND L T [...] authenticated by: RODERICK ESTRELLA Date: 2022-12-27 15:58 [facility] 12-27-2022 Note PROCEDURE: XR HAND L [...] by: RODERICK ESTRELLA Date: 2022-12-27 15:58 [facility] 10-12-2021 Evaluation note Encounter Date Diagnosis [...] [facility] document. 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 documented in this encounter [facility] System[facility] note* Diagnosis Acute renal failure superimposed on stage 4 chronic kidney disease, unspecified acute renal failure type ([facility] Primary Congestive heart failure, unspecified HF chronicity, unspecified heart failure type ([facility]) Anemia associated with chronic renal failure Anemia in chronic kidney disease Hyperkalemia Hyperpotassemia Other abnormalities of gait and mobility Muscle weakness (generalized) documented in this encounter [facility] SystemHistory general Narrative - Reported* Type Description Date Medical History hypertension Medical History chronic kidney disease stage 3 Surgical History gall bladder Surgical History appendectomy Surgical History knee replacement, left Surgical History HEART CATH WITH STENT PLACEMENT X1 Hospitalization History see above Hospitalization History URINARY TRACT INFECTION 05/2020 Hospitalization History BLOOD PRESSURE ISSUES [employer] Other History of Present illness Narrative* The [...] medication regimen. She denies medication side effects. [facility] Work Phone: History of Present illness [...] diet and weight loss were again advocated. -[facility] 600 DO Work Phone: InstructionsNot on filedocumented in this encounter [facility] SystemInstructionsNot on filedocumented in this encounter [facility] SystemInstructionsNot on filedocumented in this encounter [facility] SystemInstructionsNot on filedocumented in this encounter [facility] Summary Purpose Family History Relationship Condition [...] Patient was recently hospitalized at [facility]. The patient was seen in Cardiology consult with subsequent cardiovascular management by [facility]. Hospitalization records have been reviewed. * Reason for Cardiology Consultation: ACS * Consulting Quality Audit Representative: Dr. Contreras * Cardiovascular testing: cardiac cath [...] DATE CREATED AUTHOR AUTHOR'S ORGANIZ ATION 10/07/2023 [facility] DATE CREATED AUTHOR AUTHOR'S ORGANIZ ATION 11/24/2023 [facility] DATE CREATED AUTHOR AUTHOR'S ORGANIZ ATION 01/07/2024 [facility] DATE CREATED AUTHOR AUTHOR'S ORGANIZ ATION 01/22/2024 [facility] EPIC REASON FOR VISIT (unrecogniz ed section and content) #13 NOT VACCINATED, NO POS C OVID EXP, COUGH, CONGESTION, FEVER Care Teams (unrecognized sec tion and content) Switchman Supervisor Relationship Specialty Start Date End Date James Pereira DO [address] [place] [address] PCP - General 06/30/18 Switchman Supervisor Relationship Specialty Start Date End Date Shaikh Serna MD [address] [facility] [place] [address] PCP - General Internal Medicine 12/17/23 Team Status: Active Member Role Status Dates Shaikh Daphne MD Primary Care Provider Active Team Status: Inactive Member Role Status Dates Mary Espana MD Attending Provider Active St art: January 06, 2024 End: January 06, 2024 Shaikh Daphne MD Primary Care Provider Active Start: January 06, 2024 End: January 06, 2024 Switchman Supervisor Relationship Specialty Start Date End Date James Pereira DO [address] [place] [address] PCP - General 06/30/18 Switchman Supervisor Relationship Specialty [place] [address] [place] [address] PCP - General 06/30/18 Switchman Supervisor Relationship Specialty [place] [address] [place] [address] PCP - General 06/30/18 Goals (unrecognized section [...] BE BASED ON THE PRIMARY CLINICAL RECORDS. [facility]. provides no warranty or guarantee of the accuracy or completeness of information in this document.
--- NOTE | 2024-02-17 10:25 | US_ITS ---
The [place] [id number] Patient Name: BELLE JEONG MRN: [id number] date: 1950 Sex: F Assigned Patient Location: [facility] Current Patient Location: [facility] Accession/Order Number: [id number] Exam Date: 02/17/2024 10:30 Report Date: 02/17/2024 12:08 At the request of: SHAIKH OTILIA Procedure: US venous doppler LE LT EXAMINATION: US venous doppler LE LT HISTORY: left leg swelling M79.89 COMPARISON: No relevant comparison available. FINDINGS: REGION: Left lower extremity THROMBI: None. COMPRESSIBILITY: Normal compressibility. FLOW: Normal waveform and antegrade flow between 5 and 20 cm/s. OTHER: None. US/US venous doppler LE LT IMPRESSION: 1. No deep vein thrombus within the left lower extremity. Electronically authenticated by: CHARLEY AQUINO Date: 02/17/2024 12:08
[2024-02-17 12:40] LABS: Anion Gap 14.5; BUN Creatinine Ratio 18.7; Calcium 8.6 mg/dL (8.5-10.1); Carbon Dioxide 26.6 mmol/L (21.0-32.0); Chloride 103 mmol/L (98-107); Estimated GFR (African America 40 (>=60); Estimated GFR (Non-African Ame 33 (>=60); Glucose 135 mg/dL (74-106); Potassium 5.1 mmol/L (3.5-5.1); Sodium 139 mmol/L (136-145)
== END 2024-02-17 10:07 | disposition home or self-care (01) ==
LOC: RAD 10:08
PROVIDERS: PCP Internal Medicine; Visit Provider Internal Medicine
DX: D64.9 Anemia, unspecified (principal); M79.89 Other specified soft tissue disorders; N17.9 Acute kidney failure, unspecified
CPT/HCPCS: 36415; 80048; 85025; 93971

== ENCOUNTER 2024-02-21 19:35 | Inpatient (IN) | payer MEDICARE, SELFPAY ==
[2024-02-21] VITALS (29 sets, daily range): BP systolic 87–121; BP diastolic 37–59; PULSE 65–76; TEMP 36.7–36.9; O2SAT 91–98; BMI 33.7
--- NOTE | 2024-02-21 19:42 | ECG_ITS ---
The [facility] Test Date: 2024-02-21 Pat Name: BELLE JEONG Department: Room: - Gender: Female Application Release Manager: : 1950 Requested By: SHAIKH OTILIA Order Number: [id number] Reading MD: KEERTHI WALTER Measurements Intervals [place] Rate: 72 P: 60 NC: 180 QRS: 50 QRSD: 84 T: 80 QT: 394 QTc: 418 Interpretive Statements 1100 Sinus rhythm 1570 with occasional ventricular premature complexes 9140 abnormal rhythm ECG Electronically Signed On 02-21-2024 20:26:49 EDT by KEERTHI WALTER
--- NOTE | 2024-02-21 19:42 | XR_ITS ---
The [address] [address] Patient Name: BELLE JEONG MRN: [id number] date: 1950 Sex: F Assigned Patient Location: ER Current Patient Location: ER Accession/Order Number: [id number] Exam Date: 02/21/2024 20:15 Report Date: 02/21/2024 21:17 At the request of: EDVIN LAM Procedure: XR chest 1V EXAMINATION: XR chest 1V, , 02/21/2024 8:15 PM EDT INDICATION: CP HISTORY: Ordering Provider Reason for Exam: CP Technologist Note: Additional: COMPARISON: XR chest 1V Study Date: 01/25/2024 TECHNIQUE: Chest x-ray: One view. FINDINGS: No pneumothorax, pleural effusion or focal airspace consolidation. Heart is normal in size. Bony thorax is unremarkable. XR/XR chest 1V IMPRESSION: No acute cardiopulmonary process. Electronically authenticated by: CLIFF ALVARENGA Date: 02/21/2024 21:17
--- OUTSIDE RECORDS SUMMARY | 2024-02-21 19:42 | XMS_ITS | CCD ---
Author Organization [facility] Care Team Providers Care Social Media Specialist Name Role Phone INGRID IBARRA Unavailable Unavailable INGRID IBARRA Unavailable Unavailable James Pereira Primary Care Provider NON, STAFF, Attending Provider Unavailable Unavailable Unavailable James Pereira Unavailable Unavailable Unavailable Brian Sawyer Unavailable Unavailable Unavailable DIAB, LARA Admitting Unavailable OMAR EDOUARDM Attending Unavailable DR JAMES PEREIRA Primary Care Unavailable RODERICK ESTRELLA Consulting Unavailable CHARLEY LUCAS Consulting Unavailable MARLON METCALF Consulting Unavailable SILKE, LARA Consulting Unavailable Julio WALLER, Dr. Ingrid Palma Attending Unavailable Julio WALLER, Dr. Ingrid Palma Referring Unavailable Dr. James Pereira Primary Care Unavailable JAMES PEREIRA Primary Care Unavailable GILMER, EHAD Consulting Unavailable INPATIENT, TELENEUROLOGY Consulting Unavail able James Pereira DO Primary Care Provider Shaikh Serna MD Primary Care Provider MD Mary Espana Attending Provider [phone] MD Laury Serna Primary Care Provider [phone] Shaikh Serna Primary Care Unavailable Mary Espana Attending Unavailable Mary Espana Admitting Unavailable SHAIKH SERNA Attending Unavailable TRENT RAMIREZ Attending Unavailable SHAIKH ESRNA Attending Unavailable SHAIKH SERNA Attending Unavailable ANTONY [...] mouth every 6 (six) hours 0 Active [id number] 200 actuat albuterol 0.09 mg/actuat metered dose inhaler (3 sources) beta2-Adrenergic Agonist Start: 12-02-2023 End: 01-01-2024 take 2 puff(s) by inhalation every four hours for wheezing albuterol HFA 90 mcg/act inhaler Indications: Chronic obstructive pulmonary disease, unspecified COPD type ([facility]) Inhale 2 puffs every 4 (four) hours [...] Ordered: 20-Aug-2023 DO Active 168 hr cloNIDine 0.42362 mg/hr transdermal system (6 sources) Central alpha-2 Adrenergic Agonist Start: 12-24-2020 cloNIDine (CATAPRES- TTS) 0.2 mg/24 hr apply ONE PATCH EACH Week @0900 IN THE MORNING 0 12/24/2020 Active Start: 09-09-2020 End: 12-25-2021 Clonidine Active 1 EACH URIBE SDERML We@0900 03 22September 09, 2020 12:35pm clopidogrel 75 mg oral [...] 3 06/24/2018 Active take 1 tablet by [facility] twice daily Metoprolol Tartrate 25 MG Oral Tablet TAKE 1 TABLET TWICE DAILY. Quantity: 0 Refills: 0 Ordered: 30-Apr-2022 DO Active take 1 tablet by [facility] every twelve hours Metoprolol Tartrate 50 MG [...] Start: 10-12-2021 take 2 tablets by [facility] every twenty-four hours predniSONE 20 MG 2 [...] Start: 06-05-2020 take 1 capsule by [facility] once daily at mealtime Vitamin B Comp [...] sources) Hypertensive disorder; Translations: [Essential hypertension] Onset: 01-10-2024 01-10-2024 Chronic Essential hypertension (1 source) Essential hypertension Onset: 07-22-2017 Fluid and electrolyte disorders (6 sources) Metabolic acidosis; Translations: [Metabolic acidosis] Onset: 02-13-2024 04-16-2022 Episodic Fracture of upper limb (1 [...] medications] Episodic Other aftercare (1 source) Other fpc (current) drug therapy; Translations: [OTH LONGTERM CURRENT DRUG THERAPY] Onset: 12-29-2022 Episodic Other [...] Unclassified (1 source) Athscl heart disease of [place] coronary artery w/o ang pctrs / I25.10(ICD-9) [...] aPTT Coag (PPP) [Time] 24.6 s 25.1-36.5 [facility] Comment on above: A hematocrit value g reater than 55% may lead to inaccurate results in coagulation testing. Patients having hematocrit values >55% require a special collection tube for coagulation studies. Please contact the laboratory at [phone] guided bone marrow bx/asp iron 01-06-2024 CT guided bone marrow bx/aspir [facility] [place] [address] [place] [address] CT Scan Report Signed Patient: Kusum Huerta MR#: [id number] [birth year] : 1950 Acct:[id number] Age/Sex: 73 / F ADM Date: 01/06/24 Loc: CT Room: Type: [facility] Attending Dr: Mary Esapna MD Copies to: Mary Espana MD Ordering [...] Yaw Deluca M.D.01/06/2024 2:06 PM Dictation Location: [place] [address] Transcribed By: [facility] 01/06/24 1406 Dictated By: Yaw Deluca II, MD 01/06/24 1401 Signed By: 01/06/24 140 Normal [facility] Coagulation Profileon 2023 aPTT Coag (Bld) [Time] 24.6 s Low 25.1-36.5 [facility] Comment on above: Order Comment: STAT FOR BX Result Comment: A he matocrit value greater than 55% may lead to inaccurate results in coagulation testing. Patients having hematocrit values >55% require a special collection tube for coagulation studies. Please contact the laboratory at [phone] for redraw instructions. PERFORMED BY: [place] [address] PATHOLOGIST FLOOR MANAGER CUCA VOGT M.D. Performed By: #### C BC, PLT, PP #### [address] INR Coag (PPP) [Relative time] 0.9 {INR} Normal [facility] Comment on above: Order Comment: STAT [...] By: #### C BC, PLT, PP #### [address] PT Coag (PPP) [Time] 10.4 s Normal 9.0-12.9 [facility] Comment on above: Order Comment: STAT FOR BX Result Comment: A he matocrit value greater than 55% may lead to inaccurate results in coagulation testing. Patients having hematocrit values >55% require a special collection tube for coagulation studies. Please contact the laboratory at [phone] for redraw instructions. Performed By: #### C BC, PLT, PP #### [facility] [address] [address] Complete Blood Count Auto Di ffon 01-06-2024 Basophils (Bld) [#/Vol] 0.0 10*3/uL Normal 0.0-0.2 [facility] Comment on above: Order Comment: STAT FOR BX Result Comment: PERF ORMED BY: [place] [address] PATHOLOGIST FLOOR MANAGER CUCA VOGT M.D. Performed By: #### C BC, PLT, PP #### [address] Basophils/100 WBC (Bld) 0.1 % Normal . [facility] Comment on above: Order Comment: STAT FOR BX Performed By: #### C BC, PLT, PP #### [address] Eosinophils (Bld) [#/Vol] 0.0 10*3/uL Normal 0.0-0.45 [facility] Comment on above: Order Comment: STAT FOR BX Performed By: #### C BC, PLT, PP #### [address] Eosinophils/100 WBC (Bld) 0.4 % Normal . [facility] Comment on above: Order Comment: STAT FOR BX Performed By: #### C BC, PLT, PP #### [address] Erythrocyte distribution width (RBC) [Ratio] 17.3 % High 11.9-15.3 [facility] Comment on above: Order Comment: STAT FOR BX Performed By: #### C BC, PLT, PP #### [address] Hematocrit (Bld) [Volume fraction] 33.3 % Low 34.0-46.4 [facility] Comment on above: Order Comment: STAT FOR BX Performed By: #### C BC, PLT, PP #### [address] Hemoglobin (Bld) [Mass/Vol] 10.4 g/dL Low 11.8-15.4 [facility] Comment on above: Order Comment: STAT FOR BX Performed By: #### C BC, PLT, PP #### [place] [address] [place] Lymphocytes (Bld) [#/Vol] 0.7 10*3/uL Low 1.00-4.8 [facility] Comment on above: Order Comment: STAT FOR BX Performed By: #### C BC, PLT, PP #### [address] Lymphocytes/100 WBC (Bld) 10.7 % Normal . [facility] Comment on above: Order Comment: STAT FOR BX Performed By: #### C BC, PLT, PP #### [address] MCH (RBC) [Entitic mass] 26.6 pg Normal 24.7-34.3 [facility] Comment on above: Order Comment: STAT FOR BX Performed By: #### C BC, PLT, PP #### [address] MCV (RBC) [Entitic vol] 85.0 fL Normal 80-100 [facility] Comment on above: Order Comment: STAT FOR BX Performed By: #### C BC, PLT, PP #### [address] Mean Corpuscular HGB Conc 31.3 g/dL Low 32.0-35.0 [facility] Comment on above: Order Comment: STAT FOR BX Performed By: #### C BC, PLT, PP #### [address] Monocytes (Bld) [#/Vol] 0.7 10*3/uL Normal 0.0-0.8 [facility] Comment on above: Order Comment: STAT FOR BX Performed By: #### C BC, PLT, PP #### [address] Monocytes/100 WBC (Bld) 9.4 % Normal . [facility] Comment on above: Order Comment: STAT FOR BX Performed By: #### C BC, PLT, PP #### [address] Neutrophils (Bld) [#/Vol] 5.5 10*3/uL Normal 1.8-7.7 [facility] Comment on above: Order Comment: STAT FOR BX Performed By: #### C BC, PLT, PP #### [facility] [address] Neutrophils/100 WBC (Bld) 79.4 % Normal . [facility] Comment on above: Order Comment: STAT FOR BX Performed By: #### C BC, PLT, PP #### [facility] [address] NRBC% 0.1 /100{WBC} Normal 0-0.5 [facility] Comment on above: Order Comment: STAT FOR BX Performed By: #### C BC, PLT, PP #### [facility] [address] Platelet mean volume (Bld) [Entitic vol] 7.7 fL Normal 6.3-10.7 [facility] Comment on above: Order Comment: STAT FOR BX Performed By: #### C BC, PLT, PP #### [address] RBC (Bld) [#/Vol] 3.92 10*6/uL Normal 3.60-5.00 [facility] Comment on above: Order Comment: STAT FOR BX Performed By: #### C BC, PLT, PP #### [address] WBC (Bld) [#/Vol] 6.9 10*3/uL Normal 3.8-11.6 [facility] Comment on above: Order Comment: STAT FOR BX Performed By: #### C BC, PLT, PP #### [address] INR in Platelet poor plasma by Coagulation assayOrdered By: Mary Espana on 01-06-2024 INR Coag (PPP) [Relative time] 0.9 {INR} [facility] Comment on above: INR Therapeutic Rang [...] Platelets (Bld) [#/Vol] 136 10*3/uL Low 150-450 [facility] Comment on above: Order Comment: STAT FOR BX Result Comment: PERF ORMED BY: [facility] [address] [place] [address] PATHOLOGIST FLOOR MANAGER CUCA VOGT M.D. Performed By: #### C BC, PLT, PP #### [facility] [address] Platelets Auto (Bld) [#/Vol] Ordered By: Mary Espana on 01-06-2024 Platelets (Bld) [#/Vol] 136 10*3/uL 150-450 [facility] Prothrombin time (PT)Ordered By: Mary Espana on 01-06-2024 PT Coag (PPP) [Time] 10.4 s 9.0-12.9 [facility] Comment on above: A hematocrit value g reater than 55% may lead to inaccurate results in coagulation testing. Patients having hematocrit values >55% require a special collection tube for coagulation studies. Please contact the laboratory at [phone] for redraw instructions. Multiple labsOrdered By: Maureen Eckert on 11-23-2023 Collections Height or Weight NOT Doneon 08-20-2023 Adult depression screening assessment [facility] Work Phone: Fall risk assessment a) No falls within the last year [facility] 600 DO Work Phone: Office Visit (Cardiology)on 08-20-2023 Follow-up visit Diagnoses/Problems Assessed Mixed hyperlipidemia (272.2) (E78.2) Essential hypertension (401.9) (I10) Atherosclerosis of [place] coronary artery without angina pectoris (414.01) (I25.10) Status post angioplasty (V45.89) (Z98.62) Shortness of breath (786.05) (R06.02) Former smoker (V15.82) (Z87.891) Quit 1993 Orders Atherosclerosis of [place] coronary artery without angina pectoris, Status post [...] Former smoker Tobacco Use Screening; Status:Complete; Done: [id number] Unlinked Stop: amLODIPine Besylate 10 MG Oral [...] negative for complaint. Vitals Vital Signs Recorded: [id number] 11:08AM Heart Rate70, L Radial Dsditgzy180, LUE, Sitting Rngvvdrpz70, LUE, Sitting Height5 ft 3 in Height [...] eye . (more content not included)... Normal [facility] XR KNEE LT 4V or >on 02-04-2 023 XR KNEE LT 4V or > [...] by: CHARLEY LUCAS Date: 2022-12-27 15:51 Normal [facility] XR RIBS LT PA Waqar [...] calcified granuloma in the right lung base. [place] screws noted in the right humeral head. IMPRESSION: 1. No acute rib fracture identified. 2. No acute cardiopulmonary process. Electronically authenticated by: MARLON METCALF Date: 2022-12-27 15:50 Normal [facility] Tobacco Screening.on 022 Adult depression screening assessment No [facility] [employer] 250 DO Work Phone: Fall risk assessment a) No falls within the last year [facility] 250 DO Work Phone: Tobacco use status [facility] b) No [facility] 250 DO Work Phone: COVID Quick Testingon 2020 Result Positive [employer] Other Automated blood platelet cou nt (count/volume)on 03-04-2021 Platelets (Bld) [#/Vol] 249 10*3/uL 150-450 [facility] Automated blood platelet oracio n volume measurementon 03-04-2021 Platelet mean volume (Bld) [Entitic vol] 8.2 fL 6.3-10.7 [facility] Automated erythrocyte distri bution width ratioon 03-04-2021 Erythrocyte distribution width (RBC) [Ratio] 17.4 % 11.9-15.3 [facility] Automated erythrocyte mean c orpuscular hemoglobin (mass per erythrocyte)on 03-04-2021 MCH (RBC) [Entitic mass] 27.2 pg 24.7-34.3 [facility] Automated erythrocyte mean c orpuscular hemoglobin concentration measurement (mass/volon 03-04-2021 MCHC (RBC) [Mass/Vol] 32.7 g/dL 32.0-35.0 [facility] Automated erythrocyte mean c orpuscular volumeon 03-04-2021 MCV (RBC) [Entitic vol] 83.2 fL 80-100 [facility] Blood erythrocytes automated count (number/volume)on 03-04-2021 RBC (Bld) [#/Vol] 3.83 10*6/uL 3.60-5.00 [facility] Blood hemoglobin measurement (mass/volume)on 03-04-2021 Hemoglobin (Bld) [Mass/Vol] 10.4 g/dL 11.8-15.4 [facility] Blood leukocytes automated c ount (number/volume)on 03-04-2021 WBC (Bld) [#/Vol] 9.9 10*3/uL 3.8-11.6 [facility] Body fluid albumin measureme nt (mass/volume)on 03-04-2021 Albumin (Body fld) [Mass/Vol] 3.6 g/dL 3.2-5.5 [facility] Estimated glomerular filtrat ion rate (GFR) non- Americanon 03-04-2021 GFR/1.73 sq M predicted among non-blacks MDRD (S/P/Bld) [Vol rate/Area] 27 mL/Min [facility] Hematocrit [Volume Fraction] of Blood by Automated counton 03-04-2021 Hematocrit (Bld) [Volume fraction] 31.9 % 34.0-46.4 [facility] Otheron 03-04-2021 GFR/1.73 sq M.predicted MDRD (S/P/Bld) [Vol rate/Area] 33 mL/Min [facility] Comment on above: GFR estimated refere nce range: According to KDOQI guidelines, <60 ml/min/1.73m2 is sufficient to diagnose a patient with chronic kidney disease. Pharmacy Creatinine Clearance (Chem N/A [facility] Protein [Mass/volume] in Ser um or Plasmaon 03-04-2021 Protein [Mass/Vol] 6.6 g/dL 6.1-7.9 [facility] Serum globulin measurement b y calculation (mass/volume)on 03-04-2021 Globulin (S) [Mass/Vol] 3.0 g/dL [facility] Serum or plasma alanine fleming otransferase measurement without P-5'-P (enzymatic activion 03-04-2021 ALT No additional P-5'-P [Catalytic activity/Vol] 12 U/L 10-60 [facility] Serum or plasma albumin/glob ulin mass ratioon 03-04-2021 Albumin/Globulin [Mass ratio] 1.2 {ratio} [facility] Serum or plasma alkaline greyson sphatase measurement (enzymatic activity/volume)on 03-04-2021 ALP [Catalytic activity/Vol] 155 U/L 32-92 [facility] Serum or plasma aspartate am inotransferase measurement (enzymatic activity/volume)on 03-04-2021 AST [Catalytic activity/Vol] 12 U/L 10-42 [facility] Serum or plasma calcium terence urement (mass/volume)on 03-04-2021 Calcium [Mass/Vol] 8.8 mg/dL 8.2-10.2 [facility] Serum or plasma chloride oracio surement (moles/volume)on 03-04-2021 Chloride [Moles/Vol] 104 mmol/L 95-114 [facility] Serum or plasma creatinine m easurement with calculation of estimated glomerular filtron 03-04-2021 Creatinine [Mass/Vol] 1.82 mg/dL 0.44-1.03 [facility] Serum or plasma glucose terence urement (mass/volume)on 03-04-2021 Glucose [Mass/Vol] 109 mg/dL 70-100 [facility] Comment on above: ADA recommended refe rence rangeRandom Glucose Reference Range is dependent on time and content of last meal. Glucose of more than 200 mg/dL in a nonstressed, ambulatory subject supports the diagnosis of Diabetes Mellitus. Serum or plasma potassium me asurement (moles/volume)on 03-04-2021 Potassium [Moles/Vol] 5.6 mmol/L 3.5-5.1 [facility] Serum or plasma sodium measu rement (moles/volume)on 03-04-2021 Sodium [Moles/Vol] 135 mmol/L 136-146 [facility] Serum or plasma total biliru bin measurement (mass/volume)on 03-04-2021 Bilirubin [Mass/Vol] 1.0 mg/dL 0.3-1.2 [facility] Serum or plasma total carbon dioxide measurement (moles/volume)on 03-04-2021 CO2 [Moles/Vol] 23.9 mmol/L 22.0-30.0 [facility] Serum or plasma urea nitroge n measurement (mass/volume)on 03-04-2021 Urea nitrogen [Mass/Vol] 37 mg/dL 08-15 [facility] Vital Signs Date Time Vital Sign Value Performing Clinician Facility 02-12-2024 18:27-0400 Body mass index (BMI) [Ratio] 33.39 kg/m2 3ROAM Work Phone: [facility] 02-12-2024 18:27-0400 Body weight 85.5 kg 3ROAM Work Phone: [facility] [employer] 02-12-2024 18:27-0400 Diastolic blood pressure 78 mm[Hg] [employer] Work Phone: [facility] 02-12-2024 18:27-0400 Heart rate 76 /min [employer]RO[employer] Work Phone: [facility] 02-12-2024 18:27-0400 Systolic blood pressure 138 mm[Hg] 3RO[employer] Work Phone: [facility] 02-09-2024 12:10-0400 Body mass index (BMI) [Ratio] 33.18 kg/m2 Josr Furlong DO Work Phone: [facility] [employer] [facility] 02-09-2024 12:10-0400 Body temperature 97.7 [degF] Josr Furlong DO Work Phone: [facility] [employer] [facility] 02-09-2024 12:10-0400 Body weight 84.96 kg Josr Furlong DO Work Phone: [facility] [employer] [facility] 02-09-2024 12:10-0400 Diastolic blood pressure 66 mm[Hg] Josr Furlong DO Work Phone: [facility] [employer] [facility] 02-09-2024 12:10-0400 Heart rate 82 /min Josr Furlong DO Work Phone: [facility] [employer] [facility] 02-09-2024 12:10-0400 Respiratory rate 18 /min Josr Furlong DO Work Phone: [facility] [employer] [facility] 02-09-2024 12:10-0400 SaO2% (BldA) [Mass fraction] 99 % Josr Furlong DO Work Phone: [facility] [employer] 02-09-2024 12:10-0400 Systolic blood pressure 117 mm[Hg] Josr Furlong DO Work Phone: [facility] [employer] [facility] 01-29-2024 17:52-0500 Body height 160 cm Josr Furlong DO Work Phone: [facility] [employer] [facility] 01-29-2024 17:52-0500 Body mass index (BMI) [Ratio] 34.56 kg/m2 Josr Furlong DO Work Phone: [facility] [employer] [facility] 01-29-2024 17:52-0500 Body temperature 98.49 [degF] Josr Furlong DO Work Phone: [facility] [employer] [facility] 01-29-2024 17:52-0500 Body weight 88.5 kg Josr Furlong DO Work Phone: [facility] 01-29-2024 17:52-0500 Diastolic blood pressure 65 mm[Hg] Josr Furlong DO Work Phone: [facility] [employer] [facility] 01-29-2024 17:52-0500 Heart rate 63 /min Josr Furlong DO Work Phone: [facility] 01-29-2024 17:52-0500 Respiratory rate 18 /min Josr Furlong DO Work Phone: [facility] 01-29-2024 17:52-0500 SaO2% (BldA) [Mass fraction] 98 % Josr Furlong DO Work Phone: [facility] 01-29-2024 17:52-0500 Systolic blood pressure 133 mm[Hg] Josr Furlong DO Work Phone: [facility] 01-06-2024 11:41-0500 Diastolic blood pressure 73 mm[Hg] MD Shaikh Serna Work Phone: [facility] 01-06-2024 11:41-0500 Heart rate 92 /min MD Shaikh Serna Work Phone: [facility] 01-06-2024 11:41-0500 Respiratory rate 16 /min MD Shaikh Serna Work Phone: [facility] 01-06-2024 11:41-0500 SaO2% (BldA) [Mass fraction] 97 % MD Shaikh Serna Work Phone: [facility] 01-06-2024 11:41-0500 Systolic blood pressure 152 mm[Hg] MD Shaikh Serna Work Phone: [facility] 01-06-2024 10:00-0500 Body height 157.48 cm MD Shaikh Serna Work Phone: [facility] 01-06-2024 10:00-0500 Body weight 86.18 kg MD Shaikh Serna Work Phone: [facility] 08-20-2023 11:08-0400 Body height 160.02 cm James Pereira Work Phone: [facility] 600 DO Work Phone: 08-20-2023 11:08-0400 Body mass index (BMI) [Ratio] Medical Reason Not Done James Pereira Work Phone: [facility] 600 DO Work Phone: 08-20-2023 11:08-0400 Diastolic blood pressure 52 mm[Hg] James Pereira Work Phone: [facility] 600 DO Work Phone: 08-20-2023 11:08-0400 Heart rate 70 /min James Pereira Work Phone: [facility] 600 DO Work Phone: 08-20-2023 11:08-0400 Systolic blood pressure 110 mm[Hg] James Pereira Work Phone: [facility] 600 DO Work Phone: 04-30-2022 10:57-0400 Body height 160.02 cm James Pereira Work Phone: [facility] 250 DO Work Phone: 04-30-2022 10:57-0400 Body mass index (BMI) [Ratio] 36.67 kg/m2 James Pereira Work Phone: [facility] 250 DO Work Phone: 04-30-2022 10:57-0400 Body surface area Derived from formula 1.96 m2 James Pereira Work Phone: [facility] 250 DO Work Phone: 04-30-2022 10:57-0400 Body weight 93.9 kg James Jasso Loomis Work Phone: [facility] 250 DO Work Phone: 04-30-2022 10:57-0400 Diastolic blood pressure 50 mm[Hg] James Jasso Loomis Work Phone: [facility] 250 DO Work Phone: 04-30-2022 10:57-0400 Heart rate 64 /min James Jasso Loomis Work Phone: [facility] 250 DO Work Phone: 04-30-2022 10:57-0400 Systolic blood pressure 120 mm[Hg] James Jasso Loomis Work Phone: [facility] 250 DO Work Phone: 04-16-2022 00:00-0400 60 1 Ingrid Contreras DO Work Phone: [facility] 250 DO Work Phone: Comment on above: [id number] 10-12-2021 14:30-0500 Body height Brian Sawyer Other [employer] Other 10-12-2021 14:30-0500 Body mass index (BMI) [Ratio] 36.61 kg/m2 Brian Sawyer Other [employer] Other 10-12-2021 14:30-0500 Body temperature 98.7 [degF] Brian Sawyer Other [employer] Other 10-12-2021 14:30-0500 Body weight 99.79 kg Brian Sawyer Other [employer] Other 10-12-2021 14:30-0500 Diastolic blood pressure 58 mm[Hg] Brian Sawyer Other [employer] Other 10-12-2021 14:30-0500 SaO2% (BldA) [Mass fraction] 92 % Brian Sawyer Other [employer] Other 10-12-2021 14:30-0500 Systolic blood pressure 94 mm[Hg] Brian Sawyer Other [employer] Other Encounters Encounter Date Encounter Type Care Provider Facility Start: 02-17-2024 End: 02-17-2024 ambulatory DAPHNE Not Available Start: 02-12-2024 ambulatory Josr mario DO Work Phone: [facility] Comment on above: Acute renal failure superimposed on stage 4 chronic kidney disease, unspecified acute renal failure type (CMS-HCC) (Primary Dx); Congestive heart failure, unspecified HF chronicity, unspecified heart failure type (CMS-HCC); Anemia associated with chronic renal failure; Hyperkalemia; Other abnormalities of gait and mobility; Muscle weakness (generalized) Start: 02-09-2024 ambulatory Josr mario DO Work Phone: [facility] - [...] 34.0 to 34.9 in adult; Atherosclerosis 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 Start: 01-29-2024 ambulatory Josr mario DO Work Phone: [facility] - [...] Start: 01-06-2024 End: 01-06-2024 ambulatory Shaikh Daphne Facility:[facility] Start: 01-06-2024 End: 01-06-2024 Admission to same day surgery center MD Shaikh Serna Work Phone: [facility] [place] Work Phone: Start: 01-06-2024 End: 01-06-2024 ambulatory MD Shaikh Serna Work Phone: [facility] Work Phone: Start: 12-29-2023 Telephone encounter Trent Ramirez MD Work Phone: [facility] 210 Start: 12-17-2023 End: 12-17-2023 ambulatory SHAIKH DAPHNE Not Available Start: 12-16-2023 End: 12-16-2023 ambulatory TRENT RAMIREZ Not Available Start: 12-02-2023 End: 12-02-2023 ambulatory SHAIKH DAPHNE Not Available Start: 11-25-2023 Orders Only Not In System Ref Prov [facility] Start: 11-19-2023 End: 11-24-2023 Emergency department patient visit JAMES PEREIRA [facility] Start: 11-12-2023 End: 11-12-2023 ambulatory ANTONY GRANT Not Available Start: 08-20-2023 Office outpatient vi sit 25 minutes James Pereira Work Phone: [facility] 600 DO Work Phone: Start: 08-20-[address] Ingrid Ibarra II Facility: Start: 12-27-2022 End: 12-27-2022 ambulatory LARA EDOUARD Facility:H1 Start: 06-17-2022 Patient encounter procedure James Jasso Loomis Work Phone: [facility] 250 DO Work Phone: Start: 04-30-2022 Office outpatient vi sit 25 minutes Hodgen E Loomis Work Phone: [facility] 250 DO Work Phone: Start: 04-22-2022 Patient encounter procedure Ingrid Contreras DO Work Phone: [facility] 250 DO Work Phone: Start: 10-12-2021 End: 10-12-2021 ambulatory Brian Sawyer Other [facility] Other Start: 10-12-2021 Office outpatient vi sit 15 minutes Brian Sawyer [facility] Start: 03-04-2021 End: 03-04-2021 Patient encounter procedure James Pereira -Lab [facility] Start: 07-22-2017 Ambulatory INGRID IBARRA Facil [id number] Procedures Date Procedure Procedure Detail Performing Clinician Start: 11-23-2023 MULTIPLE LABS Not In Sy stem Ref Prov Start: 11-23-1979 Total colonoscopy Willi am Ben DO Work Phone: Appendectomy Hodgen E Bristo l Work Phone: Arthroplasty of knee James Jasso Loomis Work Phone: Cardiac catheterization Will rey Ben DO Work Phone: Cholecystectomy James E Any stol Work Phone: Hysterectomy Hodgen E Bristo l Work Phone: Removal of thrombus James Jasso Loomis Work Phone: Surgical procedure o n eye proper James E Loomis Work Phone: Plan of Treatment Date Care Activity Detail Author Start: 12-25-2031 DTaP,Tdap and Td Vaccines (2 - Td or Tdap) DTaP,Tdap and Td Vaccines (2 - Td or Tdap) [facility] Start: 02-08-2025 Adult BMI Screening Adult BMI Screening [facility] Start: 01-28-2025 Adult BMI Screening Adult BMI Screening [facility] Start: 01-28-2025 Tobacco Screening Tobacco Screening [facility] Start: 01-21-2024 End: 01-21-2024 Patient encounter procedure 01/21/2024 1:50 PM EST Procedure Visit [facility] [address] [facility] [address] [place] [id number] Antony Grant, DPEsperanza [address] [facility] [address] [place] [address] [facility] Start: 01-20-2024 End: 01-20-2024 Patient encounter procedure 01/20/2024 9:30 AM EST Office Visit [facility] [address] [place] [address] Shaikh Serna MD [address] [place] [address] [facility] Start: 01-14-2024 End: 01-14-2024 Patient encounter procedure 01/14/2024 11:00 AM EST Procedure Visit [facility] [address] [facility] [address] [place] [address] [facility] Start: 01-06-2024 [facility] Start: 01-06-2024 [facility] Start: 01-06-2024 Bone marrow sampling [facility] Start: 07-24-2023 Influenza vaccination [facility] Start: 07-10-2022 FUV, Provider: Ingrid Ibarra, Status: Henrry, Time: 10:50 AM FUV, Provider: Ingrid Ibarra, Status: Pen, Time: 10:[address] [facility] 250 DO Work Phone: Start: 04-30-2022 FUV, Provider: Cristal Grant, Status: Pen, Time: 10:30 AM FUV, Provider: Cristal Grant, Status: Pen, Time: 10:[address] [facility] 250 DO Work Phone: Start: 01-15-2022 Adult BMI Screening Adult BMI Screening [facility] Start: 07-24-2018 Pneumococcal Vaccine: 65+ Years (2 - PCV) Pneumococcal Vaccine: 65+ Years (2 - PCV) [facility] Start: 2015 Fall Risk Screening Fall Risk Screening [facility] Start: 2000 Administration of varicella zoster vaccine Zoster (Shingles) Vaccine (1 of 2) [facility] Start: 04-15-1990 Screening for malignant neoplasm of breast Mammogram [facility] Start: 1968 Adult BMI Follow Up Plan Adult BMI Follow Up Plan [facility] Start: 1962 Depression Screening Depression Screening [facility] Start: 1962 Tobacco Screening Tobacco Screening [facility] Start: 1950 Medicare Annual Wellness (AWV) Medicare Annual Wellness (AWV) [facility] Start: 1950 Screening for malignant neoplasm of colon [facility] Start: 1950 Medicare Annual Wellness Visit Medicare Annual Wellness Visit [facility] Basophils [#/volume] in Blood by Automated count [facility] Basophils/100 leukoc ytes in Blood by Automated count [facility] Eosinophils/100 leukocytes in Blood by Automated count [facility] Erythrocyte distribu tion width [Ratio] by Automated count [facility] Erythrocytes [#/volu me] in Blood [facility] Hematocrit [Volume Fraction] of Blood [facility] Hemoglobin [Mass/vol ume] in Blood [facility] Leukocytes [#/volume ] corrected for nucleated erythrocytes in Blood by Automated coun [facility] Leukocytes [#/volume ] in Blood [facility] Lymphocytes [#/volum e] in Blood by Automated count [facility] Lymphocytes/100 leukocytes in Blood by Automated count [facility] MCH [Entitic mass] b y Automated count [facility] MCHC [Mass/volume] b y Automated count [facility] MCV [Entitic volume] by Automated count [facility] Monocytes [#/volume] in Blood by Automated count [facility] Monocytes/100 leukoc ytes in Blood by Automated count [facility] Neutrophils [#/volum e] in Blood by Automated count [facility] Neutrophils/100 leukocytes in Blood by Automated count [facility] Nucleated erythrocyt es [Presence] in Blood by Automated count [facility] Patient Education [facility] Bone Marrow Aspiration or Biopsy [facility] Work Phone: Platelet mean volume [Entitic volume] in Blood by Automated count [facility] Immunizations Immunization Date Immunization Notes Care Provider Fa abdulaziz 12-25-2021 tetanus toxoid, redu zak diphtheria toxoid, and acellular pertussis vaccine, adsorbed James E Loomis Work Phone: [facility] 09-11-2020 influenza virus vacc ine, unspecified formulation Hodgen E Loomis Work Phone: [facility] 250 DO Work Phone: 09-08-2020 Fluzone QIV High-Dos e 65YR+ Hodgen [facility] 09-08-2020 influenza virus vacc ine, unspecified formulation Not Ref Prov [facility] 10-14-2019 influenza, high dose seasonal, preservative-free Hodgen [facility] 07-24-2017 pneumococcal polysaccharide vaccine, 23 valent Hodgen E Loomis Work Phone: [facility] 250 DO Work Phone: 08-28-2015 influenza, high dose seasonal, preservative-free Hodgen E Loomis Work Phone: [facility] 250 DO Work Phone: influenza virus vacc ine, unspecified formulation Hodgen E Loomis Work Phone: [facility] 250 DO Work Phone: Comment on above: Aug 20122012 Payers Date Payer Category Payer Self-pay [id number] 2023 Medicare [id number] 2023 Private Health Insurance [id number] Private Health Insurance [id number] 1950 Unknown [id number] 1950 Unknown [id number] 1950 Unknown [id number] 1950 Unknown [id number] 1950 Unknown [id number] 1950 Unknown [id number] 1950 Unknown [id number] 1950 Unknown [id number] 1950 Unknown [id number] [id number] 1950 Unknown [id number] [id number] Medicare [id number] Private Health Insurance [id number] Private Health Insurance [employer] [id number] [id number] Unknown AETNA Unknown [id number] Social History Date Type Detail Facility Start: 07-05-2018 End: 10-02-2020 Tobacco smoking status NHIS Ex-smoker (finding) [facility] Work Phone: Start: 1950 Sex Assigned At Female F [facility] Start: 12-18-2020 End: 01-15-2021 No illicit drug use No illicit drug use [facility] [address] DO Work Phone: Comment on above: Quit 1993; 4 cups tea daily; Start: 12-18-2020 End: 01-15-2021 Sex Assigned At [facility] Other History of tobacco use Current smoker [facility] Start: 07-05-2018 End: 12-02-2023 Tobacco use and exposure Smokeless tobacco non-user [facility] Start: 01-15-2021 End: 01-29-2024 Alcohol intake Current non-drinker of alcohol (finding) [facility] Housing Instability Unknown [facility] Start: 1950 End: 1950 Sex Assigned At Not on file [facility] Start: 12-02-2023 Tobacco smoking stat [facility] Never smoked tobacco [facility] History of tobacco use Passive smoker [facility] Start: 12-17-2023 Alcohol intake Lifetime non-d rony (finding) [facility] Start: 11-12-2023 Alcohol Comment caffeine intak e: 1-2 cups per day (pepsi, ice tea) [facility] Medical Equipment Procedure Code Equipment Code Equipment Original Text Equipment Identifier Dates FDA Start: 10-13-2019 [id number] FDA Start: 10-13-2019 [id number] FDA Start: 10-13-2019 CL CLOSURE DEVIC E ANGIOSEAL 6F FDA Start: 10-13-2019 Goals Date Patient Goal Desired Activity /State Clinical Notes 10-12-2021 to 02-12-2024 Josr Leon DO - 02/12/2024 11:59 PM Paul Leon, DO - 02/09/2024 11:59 PM Paul Leon, DO - 01/29/2024 5:52 PM ESTTelephone Encounter - Christina Munroe - 12/29/2023 3:01 PM EST Note Date & Type Note Facility 02-12-2024 History of Present illness Narrative Patient Name: Kusum Huerta Date of : 1950 Date of Service: 02/12/2024 Facility: [facility] Type of Visit: Skilled Visit Subjective Kusum Huerta is a 73 y.o. female seen today at alf facility for No chief complaint on file. [...] have any abdominal pain. She sees a import export coordinator for her anemia. She said she has [...] Thursday to get in and also her import export coordinator. I ordered a CBC for her to get on Thursday. She is to go to the emergency room if she has any dizziness, lightheadedness or shortness a breath or other problems. She agrees to do so. We will plan on discharge tomorrow. She has done well with therapy. ELECTRONICALLY SIGNED BY: Josr Leon DO documented in this encounter Collections 02-09-2024 History of Present illness Narrative Patient Name: Kusum Huerta Date of : 1950 Date of Service: 02/09/2024 Facility: [facility] Type of Visit: Skilled Visit Subjective Kusum Huerta is a 73 y.o. female seen today at alf facility for therapy visit. Kusum is in [...] to 34.9 in adult 10. 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 Continue therapy to reach maximum improvement. Possible discharge to home this weekend. Continue other orders as directed. ELECTRONICALLY SIGNED BY: Josr Leon DO documented in this encounter Collections 01-29-2024 History of Present illness Narrative Patient Name: Kusum Huerta Date of : 1950 Date of Service: 01/29/2024 Facility: [facility] Type of Visit: Admission H&P Subjective Kusum Huerta is a 73 y.o. female seen today at alf facility for admission H&P. Kusum presents to [facility] from [facility] where she was admitted for [...] neuropathy. 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, Right cheek Chronic back pain HTN (hypertension) [place] (myocardial infarction) ([facility]) 2013 1 stent Obesity Past Surgical History: Procedure Laterality Date APPENDECTOMY CAROTID STENT r/t 1 collapsed 09/2019 CHOLECYSTECTOMY HYSTERECTOMY INJECTION MEDIAL BRANCH NERVE BLOCK: left L45 51 Left 02/25/2019 Performed by Ingrid Beckman MD at [place] PAIN INJECTION MEDIAL BRANCH NERVE BLOCK: left L45 51 Left 12/31/2018 Performed by Ingrid Beckman MD at [place] PAIN INJECTION MEDIAL BRANCH NERVE BLOCK: RIGHT [id number] Right 08/27/2018 Performed by Ingrid Beckman MD at [place] PAIN INJECTION SI JOINT Left 08/12/2019 Performed by Ingrid Beckman MD at [place] PAIN INJECTION SI JOINT Left SI Joint Left 06/15/2020 Performed by Ingrid Beckman MD at [facility] RADIO FREQUENCY ABLATION: left L45 51 Left 04/15/2019 Performed by Ingrid Beckman MD at [facility] RADIO FREQUENCY ABLATION: right [id number] [id number] Right 05/02/2019 Performed by Ingrid Beckman MD at [facility] RIGHT L3/4, 4/5, 5/1 MBB Right 07/23/2018 Performed by Ingrid Beckman MD at [facility] TOTAL KNEE ARTHROPLASTY Left No family history [...] kg/m Physical Exam Exam conducted with a furnace combustion analyst present (granddaughter present). Constitutional: General: She is [...] be discharged home. Full code. Will follow. CASING BLOWER will see next week in my absence. ELECTRONICALLY SIGNED BY: Josr Leon DO documented in this encounter [facility] 12-30-2023 Telephone encounter Note I called patient and let her know Dr. Ramirez sent in another round of steroids. I left message as no answer. [facility] Work Phone: 12-30-2023 Miscellaneous Notes I called [...] rx. Please advise. documented in this encounter [facility] 12-29-2023 Telephone encounter Note Called patient to reschedule EMG tomorrow due to no tech in office. Patient states that she has four days left of steroid and has no more refill. Wanted to let Dr. Ramirez know and wasn't sure if she needed another rx. Please advise. [facility] 12-27-2022 Note PROCEDURE: XR HAND L T [...] authenticated by: RODERICK ESTRELLA Date: 2022-12-27 15:58 [facility] 12-27-2022 Note PROCEDURE: XR HAND L T [...] by: RODERICK ESTRELLA Date: 2022-12-27 15:58 [facility] 10-12-2021 Evaluation note Encounter Date [...] Patient care instructions given in writting by [facility] Care At Home document. [employer] Other Evaluation note* Diagnosis Iron deficiency anemia due to chronic blood loss Iron deficiency anemia secondary to blood loss (chronic) Idiopathic progressive neuropathy documented in this encounter [facility] HealthcareEvaluation noteNo assessment information [facility] Work Phone: Evaluation note* Diagnosis [...] idiopathic peripheral neuropathy [facility] Diagnosis Acute renal failure superimposed on stage 4 chronic kidney disease, unspecified acute renal failure type ([facility])- Primary Congestive heart failure, unspecified HF [...] 34.0 to 34.9 in adult Atherosclerosis 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 documented [facility] Diagnosis Acute renal failure superimposed on stage 4 chronic kidney disease, unspecified acute renal failure type (CMS-HCC)- Primary Congestive heart failure, unspecified HF chronicity, unspecified heart failure type ([facility]) Anemia associated with chronic renal failure Anemia in chronic kidney disease Hyperkalemia Hyperpotassemia Other abnormalities of gait and mobility Muscle weakness (generalized) documented [facility] N[facility] - Reported* Type Description Date Medical History hypertension Medical History chronic kidney disease stage 3 Surgical History gall bladder Surgical History appendectomy Surgical History knee replacement, left Surgical History HEART CATH WITH STENT PLACEMENT X1 Hospitalization History see above Hospitalization History URINARY TRACT INFECTION 05/2020 Hospitalization History BLOOD PRESSURE ISSUES [employer] Other History of Present illness Narrative* The [...] medication regimen. She denies medication side effects. -[facility] 250 DO Work Phone: History of Present [...] diet and weight loss were again advocated. [facility] 600 DO Work Phone: InstructionsNot on filedocumented in this encounter [facility] SystemInstructionsNot on filedocumented in this encounter [facility] SystemInstructionsNot on filedocumented in this encounter [facility] [employer] SystemInstructionsNot on filedocumented in this encounter [facility] [employer] [facility] Summary Purpose Family History No Family [...] pain. * Patient was recently hospitalized at [facility]. The patient was seen in Cardiology consult with subsequent cardiovascular management by [facility]. Hospitalization records have been reviewed. * Reason for Cardiology Consultation: ACS * Consulting [employer] Checker: Dr. Contreras * Cardiovascular testing: cardiac cath [...] section and content) DATE CREATED AUTHOR 05/19/2018 [facility] DATE CREATED AUTHOR AUTHOR'S ORGANIZ ATION 12/29/2022 [facility] DATE CREATED AUTHOR AUTHOR'S ORGANIZ ATION 08/28/2023 [employer] DATE CREATED AUTHOR AUTHOR'S ORGANIZ ATION 10/07/2023 [facility] DATE CREATED AUTHOR AUTHOR'S ORGANIZ ATION 11/24/2023 [facility] DATE CREATED AUTHOR AUTHOR'S ORGANIZ ATION 01/07/2024 [facility] DATE CREATED AUTHOR AUTHOR'S ORGANIZ ATION 02/18/2024 [facility] dical Specialists EPIC REASON FOR VISIT (unrecogniz ed section and content) #13 NOT VACCINATED, NO POS C OVID EXP, COUGH, CONGESTION, FEVER Care Teams (unrecognized sec tion and content) Social Media Specialist Relationship Specialty Start Date End Date James Pereira DO [address] [place] [address] PCP - General 06/30/18 Social Media Specialist Relationship Specialty Start Date End Date Shaikh Serna MD [address] [facility] [place] [address] PCP - General Internal Medicine 12/17/23 Team Status: Active Member Role Status Dates Shaikh Daphne MD Primary Care Provider Active Team Status: Inactive Member Role Status Dates Mary Espana MD Attending Provider Active St art: January 06, 2024 End: January 06, 2024 Shaikh Daphne MD Primary Care Provider Active Start: January 06, 2024 End: January 06, 2024 Social Media Specialist Relationship Specialty Start Date End Date James Pereira DO [address] [place] [address] PCP General 06/30/18 Social Media Specialist Relationship Specialty Start Date End Date GailJames DO [address] [place] [address] [facility] General 06/30/18 Social Media Specialist Relationship Specialty Start Date End Date James Pereira DO [address] [place] [address] [facility] General 06/30/18 Goals (unrecognized section and content) [...] BE BASED ON THE PRIMARY CLINICAL RECORDS. [facility] [employer] provides no warranty or guarantee of the accuracy or completeness of information in this document.
--- NOTE | 2024-02-21 19:43 | ED_ITS ---
HPI - Chest Pain General Chief Complaint: Chest Pain Stated Complaint: CHEST PAIN Time Seen by Provider: 02/21/24 19:38 Source: patient Mode of arrival: ambulance Limitations: no limitations History of Present Illness HPI narrative: 73-year-old female presents to the emergency department for chest pain. It started 1 hour ago when she was sitting on her couch and it was in the substernal area and it goes up into the left neck. She took aspirin at home and it went away but then came back and she took more aspirin and it went away and then came back again. The paramedics gave her nitroglycerin and it seemed to be getting better but she rates it as a 4 out of 10 now. No fever back pain or nausea. She did not become diaphoretic. She states it feels like when she had her last heart attack and she has had 5 heart attacks. She has 1 cardiac stent according to the patient. Related Data Home Medications ?Medication ?Instructions ?Recorded ?Confirmed metoprolol tartrate 25 mg tablet 25 mg PO Q12H 08/15/23 01/25/24 valsartan 80 mg tablet 80 mg PO DAILY 08/15/23 01/25/24 amlodipine 5 mg tablet 5 mg PO DAILY 11/18/23 01/25/24 albuterol sulfate 90 mcg/actuation 2 puff inhalation Q4H PRN 12/12/23 01/25/24 aerosol inhaler shortness of breath or wheezing Previous Rx's ?Medication ?Instructions ?Recorded ferrous sulfate 325 mg (65 mg 325 mg PO DAILY 30 days #30 tabs 08/18/23 iron) tablet (Iron (ferrous sulfate)) gabapentin 100 mg capsule 100 mg PO TID #90 caps 11/23/23 buprenorphine 8 mg-naloxone 2 mg 1 tab sublingual BID #60 tabs 01/28/24 sublingual tablet prednisone 10 mg tablet 50 mg (5 x 10 mg) PO DAILY #47 tabs 01/28/24 prednisone 10 mg tablet 50 mg (5 x 10 mg) PO DAILY #47 tabs 01/28/24 Allergies Allergy/AdvReac Type Severity Reaction Status Date / Time No Known Drug Allergies Allergy Verified 02/21/24 19:38 Review of Systems ROS Narrative A ten point review of systems is negative except as noted above. [facility] Medical History (Updated 02/21/24 @ 22:48 by Javier Conway MD) Acute abdomen ?R10.0 - Acute abdomen (ICD-10) Adult failure to thrive ?R62.7 - Adult failure to thrive (ICD-10) Acute kidney injury superimposed on chronic kidney disease ?N17.9 - Acute kidney failure, unspecified (ICD-10) ?N18.9 - Chronic kidney disease, unspecified (ICD-10) Elevated d-dimer ?R79.89 - Other specified abnormal findings of blood chemistry (ICD-10) Chronic low back pain ?M54.50 - Low back pain, unspecified (ICD-10) ?G89.29 - Other chronic pain (ICD-10) Rhinovirus infection ?B34.8 - Other viral infections of unspecified site (ICD-10) Enterovirus infection ?B34.1 - Enterovirus infection, unspecified (ICD-10) Generalized weakness ?R53.1 - Weakness (ICD-10) Fall from chair ?W07.XXXA - Fall from chair, initial encounter (ICD-10) Lumbar degenerative disc disease ?M51.36 - Other intervertebral disc degeneration, lumbar region (ICD-10) Stage 3a chronic kidney disease (CKD) ?N18.31 - Chronic kidney disease, stage 3a (ICD-10) Opioid use disorder in remission ?F11.91 - Opioid use, unspecified, in remission (ICD-10) Acute on chronic diastolic heart failure ?I50.33 - Acute on chronic diastolic (congestive) heart failure (ICD-10) Hypoxia ?R09.02 - Hypoxemia (ICD-10) COPD (chronic obstructive pulmonary disease) ?J44.9 - Chronic obstructive pulmonary disease, unspecified (ICD-10) Iron deficiency anemia ?D50.9 - Iron deficiency anemia, unspecified (ICD-10) CAD (coronary atherosclerotic disease) ?I25.10 - Atherosclerotic heart disease of [place] coronary artery without angina pectoris (ICD-10) Hypertension ?I10 - Essential (primary) hypertension (ICD-10) Neuropathy ?G62.9 - Polyneuropathy, unspecified (ICD-10) Anemia requiring transfusions ?D64.9 - Anemia, unspecified (ICD-10) Acute on chronic congestive heart failure ?I50.9 - Heart failure, unspecified (ICD-10) CKD (chronic kidney disease) stage 3, GFR 30-59 ml/min ?N18.30 - Chronic kidney disease, stage 3 unspecified (ICD-10) Chronic respiratory failure with hypoxia ?J96.11 - Chronic respiratory failure with hypoxia (ICD-10) Melanoma ?C43.9 - Malignant melanoma of skin, unspecified (ICD-10) History of illicit drug use ?F19.91 - Other psychoactive substance use, unspecified, in remission (ICD- 10) Kidney disease ?N28.9 - Disorder of kidney and ureter, unspecified (ICD-10) CHF (congestive heart failure) ?I50.9 - Heart failure, unspecified (ICD-10) Heart attack ?I21.9 - Acute myocardial infarction, unspecified (ICD-10) Anemia ?D64.9 - Anemia, unspecified (ICD-10) Anemia ?D64.9 - Anemia, unspecified (ICD-10) CHF (congestive heart failure) ?I50.9 - Heart failure, unspecified (ICD-10) Surgical History H/O: hysterectomy ?Z90.710 - Acquired absence of both cervix and uterus (ICD-10) History of cholecystectomy ?Z90.49 - Acquired absence of other specified parts of digestive tract (ICD- 10) History of total left knee replacement ?Z96.652 - Presence of left artificial knee joint (ICD-10) Hx of appendectomy ?Z90.49 - Acquired absence of other specified parts of digestive tract (ICD- 10) History of heart artery stent ?Z95.5 - Presence of coronary angioplasty implant and graft (ICD-10) Family History Father Family history of CHF (congestive heart failure) Family history of diabetes mellitus Family history of hypertension Sister Family history of myocardial infarction Family history of hypertension Mother Family history of COPD (chronic obstructive pulmonary disease) Family history of hypertension Daughter Family history of diabetes mellitus Social History Within the past year, how often did you have a drink containing alcohol: never Within the past year, how many standard drinks containing alcohol did you have on a typical day: 1 or 2 Within the past year, how often did you have six or more drinks on one occasion: never Total score: 0 Score interpretation: A score less than 3 is consistent with normal alcohol consumption. Smoking status: Former smoker Non-prescribed substance use: former substance user, amphetamines/methamphetamines and opiods/painkillers Non-prescribed substance use details: states has been clean for 6 months Previous occupational history: Retired Known occupational exposures/hazards: No Highest level of school completed/degree received: 11th grade Are you now , , , , never or living with a partner: In a typical week, how many times do you talk on the telephone with family, friends, or neighbors: 3 or more times per week How often do you get together with friends or relatives: 3 or more times per week How often do you attend mormonism or synagogue services: never Do you belong to any clubs or organizations such as mormonism groups unions, fraternal or athletic groups, or school groups: no Total score: 1 Score interpretation: A score of less than or equal to 1 indicates the most socially isolated. Little interest or pleasure in doing things: not at all Feeling down, depressed, or hopeless: not at all Feel stressed/tense/nervous/anxious/difficulty sleeping: not at all Gender Identity: female Exam Narrative Exam Narrative: Nurses note and vital signs reviewed and patient is not hypoxic. General: The patient appears well and in no apparent distress. Patient is resting comfortably on cart. Skin: Warm, dry, no pallor noted. There is no rash noted. Head: Normocephalic, atraumatic Eye: Normal conjunctiva, no drainage Ears, Nose, Mouth, and Throat: oral mucosa is moist. Nares patent. Cardiovascular: Regular Rate and Rhythm Respiratory: Patient is in no distress, no accessory muscle use, lungs are clear to auscultation, no wheezing, rales or rhonchi Back: non-tender GI: Soft and nontender Musculoskeletal: The patient has no evidence of calf tenderness, no pitting edema, symmetrical pulses noted bilaterally Neurological: A&O, normal speech Psychiatric: Cooperative Constitutional Vital Signs, click to edit/add: Last Vital Signs Temp 98.5 F 02/21/24 19:38 Pulse 71 02/21/24 22:31 Resp 18 02/21/24 19:38 BP 102/49 02/21/24 22:31 Pulse Ox 93 L 02/21/24 21:10 O2 Del Method Room Air 02/21/24 19:49 Course Vital Signs Vital signs: Vital Signs Temperature 98.5 F 02/21/24 19:38 Pulse Rate 74 02/21/24 19:38 Respiratory Rate 18 02/21/24 19:38 Blood Pressure 121/51 02/21/24 19:38 Pulse Oximetry 95 02/21/24 19:38 Oxygen Delivery Method Room Air 02/21/24 19:38 Temperature 98.5 F 02/21/24 19:38 Pulse Rate 71 02/21/24 22:31 Respiratory Rate 18 02/21/24 19:38 Blood Pressure 102/49 02/21/24 22:31 Pulse Oximetry 93 L 02/21/24 21:10 Oxygen Delivery Method Room Air 02/21/24 19:49 MDM - Chest Pain MDM Narrative Medical decision making narrative: 2 sets of troponin are both negative. Serial troponin was recommended to admitting service. BUN and creatinine are typically elevated but they are slightly higher than typical and she has had some diarrhea recently and at this point my clinical impression is that she has dehydration causing the increase in her creatinine. At this point there is no evidence of NH and she will be admitted. Treatment diagnosis and disposition were discussed with the patient. Differential Diagnosis Differential diagnosis: Likely pneumothorax, unstable angina pectoris, atypical chest pain, st elevation myocardial infarction and chest pain Lab Data Attestation: I reviewed the patient's lab results. Labs: Lab Results 02/21/24 02/21/24 Range/Units 20:05 21:42 WBC 7.2 (4.0-11.0) 10^3/uL RBC 3.00 L (4.20-5.40) 10^6/uL Hgb 7.6 L (12.0-16.0) g/dL Hct 26.8 L (36.0-48.0) % MCV 89.3 (81.0-99.0) fL MCH 25.3 L (26.7-34.0) pg MCHC 28.4 L (29.9-35.2) g/dL RDW 16.6 H (11.0-15.0) % Plt Count 260 (150-450) 10^3/uL MPV 10.0 (9.5-13.5) fL Neut % (Auto) 62.0 (43.0-75.0) % Lymph % (Auto) 27.3 (20.5-60.0) % [place] % (Auto) 6.2 (1.7-12.0) % Eos % (Auto) 2.8 (0.9-7.0) % Baso % (Auto) 1.1 (0.2-2.0) % Neut # (Auto) 4.5 (1.4-6.5) 10^3/uL Lymph # (Auto) 2.0 (1.2-3.8) 10^3/uL [place] # (Auto) 0.5 (0.3-0.8) 10^3/uL Eos # (Auto) 0.2 (0.0-0.7) 10^3/uL Baso # (Auto) 0.1 (0.0-0.1) 10^3/uL Abs Immat Gran (auto) 0.04 H (0.00-0.03) 10^3/uL Imm/Tot Granulo (auto) 0.6 H (0.0-0.5) % Sodium 138 (136-145) mmol/L Potassium 4.4 (3.5-5.1) mmol/L Chloride 101 (98-107) mmol/L Carbon Dioxide 24.6 (21.0-32.0) mmol/L Anion Gap 16.8 BUN 53.0 H (7.0-18.0) mg/dL Creatinine 3.17 H (0.55-1.02) mg/dL Est GFR ( Amer) 17 L (>=60) Est GFR (Non-Af Amer) 14 L (>=60) BUN/Creatinine Ratio 16.7 Glucose 124 H (74-106) mg/dL Calcium 8.0 L (8.5-10.1) mg/dL Troponin I High Sens 24.3 33.6 (4.0-51.3) pg/mL Imaging Data Chest x-ray: Radiologist's impression: ITS Impressions Chest X-Ray 02/21/24 19:42 IMPRESSION: No acute cardiopulmonary process. Electronically authenticated by: CLIFF ALVARENGA Date: 02/21/2024 21:17 ECG Data Attestation: I personally reviewed and interpreted this ECG as follows: (EKG on my interpretation shows normal sinus rhythm with a PVC and no acute changes. Rate of 72.) Heart Score History: Moderately Suspicious ECG: Normal Age: >65 years Risk Factors: >3 Risk Factors/ HX of CAD:2 Troponin: <Normal Limit Total Heart Score Recommendations & Risks:: 5 Discharge Plan Discharge Chief Complaint: Chest Pain Clinical Impression: Chest pain, Dehydration Patient Disposition: Admitted as Observation Time of Disposition Decision: 22:48 Condition: Good
[2024-02-21] MEDS: NITROGLYCERIN 0.4 MG BOTTLE 0.400000000000000022 MG SL ×2 (19:54→20:10)
[2024-02-21] MEDS: ONDANSETRON PF 4 MG/2 ML VIAL IV (20:10)
[2024-02-21 20:21] LABS: Basophils Absolute Auto 0.1 10^3/uL (0.0-0.1); Basophils Percent Auto 1.1 % (0.2-2.0); Eosinophils Absolute Auto 0.2 10^3/uL (0.0-0.7); Eosinophils Percent Auto 2.8 % (0.9-7.0); Hematocrit 26.8 % (36.0-48.0); Hemoglobin 7.6 g/dL (12.0-16.0); Immature Granulocytes Abs Auto 0.04 10^3/uL (0.00-0.03); Immature Granulocytes Pct Auto 0.6 % (0.0-0.5); Lymphocytes Percent Auto 27.3 % (20.5-60.0); Mean Corpuscular HGB Conc 28.4 g/dL (29.9-35.2); Mean Corpuscular Hemoglobin 25.3 pg (26.7-34.0); Mean Corpuscular Volume 89.3 fL (81.0-99.0); Monocytes Absolute Auto 0.5 10^3/uL (0.3-0.8); Monocytes Percent Auto 6.2 % (1.7-12.0); Neutrophils Absolute Auto 4.5 10^3/uL (1.4-6.5); Platelet Count 260 10^3/uL (150-450); Red Cell Distribution Width 16.6 % (11.0-15.0); White Blood Count 7.2 10^3/uL (4.0-11.0)
[2024-02-21 21:15] LABS: Anion Gap 16.8; BUN Creatinine Ratio 16.7; Carbon Dioxide 24.6 mmol/L (21.0-32.0); Chloride 101 mmol/L (98-107); Estimated GFR (African America 17 (>=60); Estimated GFR (Non-African Ame 14 (>=60); Glucose 124 mg/dL (74-106); Potassium 4.4 mmol/L (3.5-5.1); Sodium 138 mmol/L (136-145); Troponin I High Sensitivity 24.3 pg/mL (4.0-51.3)
[2024-02-21 22:07] LABS: Troponin I High Sensitivity 33.6 pg/mL (4.0-51.3)
[2024-02-21] MEDS: 0.9 % SODIUM CHLORIDE 500 ML IV (22:11)
[2024-02-21] MEDS: ACETAMINOPHEN 325 MG TABLET 650 MG PO (22:37)
[2024-02-22] VITALS (25 sets, daily range): BP systolic 71–136; BP diastolic 49–83; PULSE 57–85; TEMP 36.4–36.7; O2SAT 91–99; BMI 34.5
--- OUTSIDE RECORDS SUMMARY | 2024-02-22 00:11 | XMS_ITS | CCD ---
Author Organization [facility] Care Team Providers Care Grounds Supervisor Name Role Phone INGRID IBARRA Unavailable Unavailable INGRID IBARRA Unavailable Unavailable James Pereira Primary Care Provider [phone] NON, STAFF, Attending Provider Unavailable Unavailable Unavailable [...] able James Pereira DO Primary Care Provider [phone] Shaikh Serna MD Primary Care Provider MD Mary Espana Attending Provider MD Laury Serna Primary Care Provider Shaikh Serna Primary Care Unavailable Mary Espana Attending Unavailable Mary Espana Admitting Unavailable SHAIKH SERNA Attending Unavailable TRENT RAMIREZ Attending Unavailable SHAIKH SERNA Attending Unavailable SHAIKH SERNA Attending Unavailable ANTONY [...] mouth every 6 (six) hours 0 Active [id number] 200 actuat albuterol 0.09 mg/actuat metered dose inhaler (3 sources) beta2-Adrenergic Agonist Start: 12-02-2023 End: 01-01-2024 take 2 puff(s) by inhalation every four hours for wheezing albuterol HFA 90 mcg/act inhaler Indications: Chronic obstructive pulmonary disease, unspecified COPD type ([facility]) Inhale 2 puffs every 4 (four) hours [...] Ordered: 20-Aug-2023 DO Active 168 hr cloNIDine 0.75490 mg/hr transdermal system (6 sources) Central alpha-2 [...] 3 06/24/2018 Active take 1 tablet by [facility] twice daily Metoprolol Tartrate 25 MG Oral Tablet TAKE 1 TABLET TWICE DAILY. 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 Patients having hematocrit values >55% require a special collection tube for coagulation studies. Please contact the laboratory at [phone] guided bone marrow bx/asp iron 01-06-2024 CT guided bone marrow bx/aspir [facility] [place] [address] [place] [address] CT Scan Report Signed Patient: Kusum Huerta MR#: [id number] 01 : 1950 Acct:[id number] Age/Sex: 73 / F ADM Date: 01/06/24 Loc: CT Room: Type: [facility] Attending Dr: Mary Espana MD Copies to: [...] Yaw Deluca M.D.01/06/2024 2:06 PM Dictation Location: [place] [address] Transcribed By: [facility] 01/06/24 1406 Dictated By: Yaw Deluca II, MD 01/06/24 1401 Signed By: 01/06/24 140 Normal [facility] Coagulation Profileon 2023 aPTT Coag (Bld) [Time] 24.6 s Low 25.1-36.5 [facility] Comment on above: Order Comment: STAT FOR BX Result Comment: A he matocrit value greater than 55% may lead to inaccurate results in coagulation testing. Patients having hematocrit values >55% require a special collection tube for coagulation studies. Please contact the laboratory at [phone] for redraw instructions. PERFORMED BY: [place] [id number] PATHOLOGIST MAINTENANCE CARPENTER CUCA VOGT M.D. Performed By: #### C BC, PLT, PP #### [address] INR Coag (PPP) [Relative time] 0.9 {INR} Normal [facility] Comment on above: Order Comment: STAT [...] #### C BC, PLT, PP #### [address] PT Coag (PPP) [Time] 10.4 s Normal 9.0-12.9 [facility] Comment on above: Order Comment: STAT FOR BX Result Comment: A he matocrit value greater than 55% may lead to inaccurate results in coagulation testing. Patients having hematocrit values >55% require a special collection tube for coagulation studies. Please contact the laboratory at [phone] for redraw instructions. Performed By: #### C BC, PLT, PP #### [facility] [address] [place] [address] Complete Blood Count Auto Di ffon 01-06-2024 Basophils (Bld) [#/Vol] 0.0 10*3/uL Normal 0.0-0.2 [facility] Comment on above: Order Comment: STAT FOR BX Result Comment: PERF ORMED BY: [place] [address] PATHOLOGIST MAINTENANCE CARPENTER CUCA VOGT M.D. Performed By: #### C BC, PLT, PP #### [address] Basophils/100 WBC (Bld) 0.1 % Normal . [facility] Comment on above: Order Comment: STAT FOR BX Performed By: #### C BC, PLT, PP #### [address] Eosinophils (Bld) [#/Vol] 0.0 10*3/uL Normal 0.0-0.45 [facility] Comment on above: Order Comment: STAT FOR BX Performed By: #### C BC, PLT, PP #### [address] Eosinophils/100 WBC (Bld) 0.4 % Normal . [facility] Comment on above: Order Comment: STAT FOR BX Performed By: #### C BC, PLT, PP #### [address] Erythrocyte distribution width (RBC) [Ratio] 17.3 % High 11.9-15.3 [facility] Comment on above: Order Comment: STAT FOR BX Performed By: #### C BC, PLT, PP #### [address] Hematocrit (Bld) [Volume fraction] 33.3 % Low 34.0-46.4 [facility] Comment on above: Order Comment: STAT FOR BX Performed By: #### C BC, PLT, PP #### [address] Hemoglobin (Bld) [Mass/Vol] 10.4 g/dL Low 11.8-15.4 [facility] Comment on above: Order Comment: STAT FOR BX Performed By: #### C BC, PLT, PP #### [place] [address] [place] Lymphocytes (Bld) [#/Vol] 0.7 10*3/uL Low 1.00-4.8 [facility] Comment on above: Order Comment: STAT FOR BX Performed By: #### C BC, PLT, PP #### [address] Lymphocytes/100 WBC (Bld) 10.7 % Normal . [facility] Comment on above: Order Comment: STAT FOR BX Performed By: #### C BC, PLT, PP #### [address] MCH (RBC) [Entitic mass] 26.6 pg Normal 24.7-34.3 [facility] Comment on above: Order Comment: STAT FOR BX Performed By: #### C BC, PLT, PP #### [address] MCV (RBC) [Entitic vol] 85.0 fL Normal 80-100 [facility] Comment on above: Order Comment: STAT FOR BX Performed By: #### C BC, PLT, PP #### [address] Mean Corpuscular HGB Conc 31.3 g/dL Low 32.0-35.0 [facility] Comment on above: Order Comment: STAT FOR BX Performed By: #### C BC, PLT, PP #### [address] Monocytes (Bld) [#/Vol] 0.7 10*3/uL Normal 0.0-0.8 [facility] Comment on above: Order Comment: STAT FOR BX Performed By: #### C BC, PLT, PP #### [address] Monocytes/100 WBC (Bld) 9.4 % Normal . [facility] Comment on above: Order Comment: STAT FOR BX Performed By: #### C BC, PLT, PP #### [address] Neutrophils (Bld) [#/Vol] 5.5 10*3/uL Normal 1.8-7.7 [facility] Comment on above: Order Comment: STAT FOR BX Performed By: #### C BC, PLT, PP #### [facility] [address] Neutrophils/100 WBC (Bld) 79.4 % Normal . [facility] Comment on above: Order Comment: STAT FOR BX Performed By: #### C BC, PLT, PP #### [facility] [address] NRBC% 0.1 /100{WBC} Normal 0-0.5 [facility] Comment on above: Order Comment: STAT FOR BX Performed By: #### C BC, PLT, PP #### [facility] [address] Platelet mean volume (Bld) [Entitic vol] 7.7 fL Normal 6.3-10.7 [facility] Comment on above: Order Comment: STAT FOR BX Performed By: #### C BC, PLT, PP #### [address] RBC (Bld) [#/Vol] 3.92 10*6/uL Normal 3.60-5.00 [facility] Comment on above: Order Comment: STAT FOR BX Performed By: #### C BC, PLT, PP #### [address] WBC (Bld) [#/Vol] 6.9 10*3/uL Normal 3.8-11.6 [facility] Comment on above: Order Comment: STAT FOR BX Performed By: #### C BC, PLT, PP #### [address] INR in Platelet poor plasma by Coagulation assayOrdered By: Mary Espana on 01-06-2024 INR Coag (PPP) [Relative time] 0.9 {INR} [facility] Comment on above: INR Therapeutic Rang [...] Platelets (Bld) [#/Vol] 136 10*3/uL Low 150-450 [facility] Comment on above: Order Comment: STAT FOR BX Result Comment: PERF ORMED BY: [facility] [address] [place] [address] PATHOLOGIST MAINTENANCE CARPENTER CUCA VOGT M.D. Performed By: #### C BC, PLT, PP #### [facility] [address] Platelets Auto (Bld) [#/Vol] Ordered By: Mary Espana on 01-06-2024 Platelets (Bld) [#/Vol] 136 10*3/uL 150-450 [facility] Prothrombin time (PT)Ordered By: Mary Espana on 01-06-2024 PT Coag (PPP) [Time] 10.4 s 9.0-12.9 [facility] Comment on above: A hematocrit value g reater than 55% may lead to inaccurate results in coagulation testing. Patients having hematocrit values >55% require a special collection tube for coagulation studies. Please contact the laboratory at [phone] for redraw instructions. Multiple labsOrdered By: Maureen Eckert on 11-23-2023 ScoreBig Height or Weight NOT Doneon 08-20-2023 [facility] Work Phone: Fall risk assessment a) No falls within the last year [facility] 600 DO Work Phone: Office Visit (Cardiology)on 08-20-2023 Follow-up visit Diagnoses/Problems Assessed Mixed hyperlipidemia (272.2) (E78.2) Essential hypertension (401.9) (I10) Atherosclerosis of [place] coronary artery without angina pectoris (414.01) (I25.10) Status post angioplasty (V45.89) (Z98.62) Shortness of breath (786.05) (R06.02) Former smoker (V15.82) (Z87.891) Quit 1993 Orders Atherosclerosis of [place] coronary artery without angina pectoris, Status post [...] Former smoker Tobacco Use Screening; Status:Complete; Done: [id number] Unlinked Stop: amLODIPine Besylate 10 MG Oral [...] negative for complaint. Vitals Vital Signs Recorded: [id number] 11:08AM Heart Rate70, L Radial [id number], LUE, Sitting [id number], LUE, Sitting Height5 ft 3 in Height [...] CHARLEY LUCAS Date: 2022-12-27 15:51 Normal [facility] XR RIBS LT PA Waqar 3 [...] calcified granuloma in the right lung base. Proctor screws noted in the right humeral head. IMPRESSION: 1. No acute rib fracture identified. 2. No acute cardiopulmonary process. Electronically authenticated by: MARLON METCALF Date: 2022-12-27 15:50 Normal [facility] Tobacco Screening.on 022 Adult depression screening assessment No [facility] [employer] 250 DO Work Phone: Fall risk assessment a) No falls within the last year [facility] 250 DO Work Phone: Tobacco use status [facility] b) No [facility] 250 DO Work Phone: COVID Quick Testingon 2020 Result Positive [facility] Other Automated blood platelet cou nt (count/volume)on 03-04-2021 Platelets (Bld) [#/Vol] 249 10*3/uL 150-450 [facility] Automated blood platelet oracio n volume measurementon 03-04-2021 Platelet mean volume (Bld) [Entitic vol] 8.2 fL 6.3-10.7 [facility] Automated erythrocyte distri bution width ratioon 03-04-2021 Erythrocyte distribution width (RBC) [Ratio] 17.4 % 11.9-15.3 [facility] Automated erythrocyte mean c orpuscular hemoglobin (mass per erythrocyte)on 03-04-2021 MCH (RBC) [Entitic mass] 27.2 pg 24.7-34.3 [facility] Automated erythrocyte mean c orpuscular hemoglobin concentration measurement (mass/volon 03-04-2021 MCHC (RBC) [Mass/Vol] 32.7 g/dL 32.0-35.0 [facility] Automated erythrocyte mean c orpuscular volumeon 03-04-2021 MCV (RBC) [Entitic vol] 83.2 fL 80-100 [facility] Blood erythrocytes automated count (number/volume)on 03-04-2021 RBC (Bld) [#/Vol] 3.83 10*6/uL 3.60-5.00 [facility] Blood hemoglobin measurement (mass/volume)on 03-04-2021 Hemoglobin (Bld) [Mass/Vol] 10.4 g/dL 11.8-15.4 [facility] Blood leukocytes automated c ount (number/volume)on 03-04-2021 WBC (Bld) [#/Vol] 9.9 10*3/uL 3.8-11.6 [facility] Body fluid albumin measureme nt (mass/volume)on 03-04-2021 Albumin (Body fld) [Mass/Vol] 3.6 g/dL 3.2-5.5 [facility] Estimated glomerular filtrat ion rate (GFR) non- Americanon 03-04-2021 GFR/1.73 sq M predicted among non-blacks MDRD (S/P/Bld) [Vol rate/Area] 27 mL/Min [facility] Hematocrit [Volume Fraction] of Blood by Automated counton 03-04-2021 Hematocrit (Bld) [Volume fraction] 31.9 % 34.0-46.4 [facility] Otheron 03-04-2021 GFR/1.73 sq M.predicted MDRD (S/P/Bld) [Vol rate/Area] 33 mL/Min [facility] Comment on above: GFR estimated refere nce range: According to KDOQI guidelines, <60 ml/min/1.73m2 is sufficient to diagnose a patient with chronic kidney disease. Pharmacy Creatinine Clearance (Chem N/A [facility] Protein [Mass/volume] in Ser um or Plasmaon 03-04-2021 Protein [Mass/Vol] 6.6 g/dL 6.1-7.9 [facility] Serum globulin measurement b y calculation (mass/volume)on 03-04-2021 Globulin (S) [Mass/Vol] 3.0 g/dL [facility] Serum or plasma alanine fleming otransferase measurement without P-5'-P (enzymatic activion 03-04-2021 ALT No additional P-5'-P [Catalytic activity/Vol] 12 U/L 10-60 [facility] Serum or plasma albumin/glob ulin mass ratioon 03-04-2021 Albumin/Globulin [Mass ratio] 1.2 {ratio} [facility] Serum or plasma alkaline greyson sphatase measurement (enzymatic activity/volume)on 03-04-2021 ALP [Catalytic activity/Vol] 155 U/L 32-92 [facility] Serum or plasma aspartate am inotransferase measurement (enzymatic activity/volume)on 03-04-2021 AST [Catalytic activity/Vol] 12 U/L 10-42 [facility] Serum or plasma calcium terence urement (mass/volume)on 03-04-2021 Calcium [Mass/Vol] 8.8 mg/dL 8.2-10.2 [facility] Serum or plasma chloride oarcio surement (moles/volume)on 03-04-2021 Chloride [Moles/Vol] 104 mmol/L 95-114 [facility] Serum or plasma creatinine m easurement with calculation of estimated glomerular filtron 03-04-2021 Creatinine [Mass/Vol] 1.82 mg/dL 0.44-1.03 [facility] Serum or plasma glucose terence urement (mass/volume)on 03-04-2021 Glucose [Mass/Vol] 109 mg/dL 70-100 [facility] Comment on above: ADA recommended refe rence rangeRandom Glucose Reference Range is dependent on time and content of last meal. Glucose of more than 200 mg/dL in a nonstressed, ambulatory subject supports the diagnosis of Diabetes Mellitus. Serum or plasma potassium me asurement (moles/volume)on 03-04-2021 Potassium [Moles/Vol] 5.6 mmol/L 3.5-5.1 [facility] Serum or plasma sodium measu rement (moles/volume)on 03-04-2021 Sodium [Moles/Vol] 135 mmol/L 136-146 [facility] Serum or plasma total biliru bin measurement (mass/volume)on 03-04-2021 Bilirubin [Mass/Vol] 1.0 mg/dL 0.3-1.2 [facility] Serum or plasma total carbon dioxide measurement (moles/volume)on 03-04-2021 CO2 [Moles/Vol] 23.9 mmol/L 22.0-30.0 [facility] Serum or plasma urea nitroge n measurement (mass/volume)on 03-04-2021 Urea nitrogen [Mass/Vol] 37 mg/dL 08-15 [facility] Vital Signs Date Time Vital Sign Value Performing Clinician Facility 02-12-2024 18:27-0400 Body mass index (BMI) [Ratio] 33.39 kg/m2 [employer] Work Phone: [facility] 02-12-2024 18:27-0400 Body weight 85.5 kg [employer] Work Phone: [facility] [place] 02-12-2024 18:27-0400 Diastolic blood pressure 78 mm[Hg] [employer] Work Phone: [facility] [place] 02-12-2024 18:27-0400 Heart rate 76 /min [employer] Work Phone: [facility] 02-12-2024 18:27-0400 Systolic blood pressure 138 mm[Hg] [employer] Work Phone: [facility] 02-09-2024 12:10-0400 Body mass index (BMI) [Ratio] 33.18 kg/m2 Josr Furlong DO Work Phone: [facility] 02-09-2024 12:10-0400 Body temperature 97.7 [degF] Josr Furlong DO Work Phone: [facility] 02-09-2024 12:10-0400 Body weight 84.96 kg Josr Furlong DO Work Phone: [facility] 02-09-2024 12:10-0400 Diastolic blood pressure 66 mm[Hg] Josr Furlong DO Work Phone: [facility] 02-09-2024 12:10-0400 Heart rate 82 /min Josr Furlong DO Work Phone: [facility] 02-09-2024 12:10-0400 Respiratory rate 18 /min Josr Furlong DO Work Phone: [facility] 02-09-2024 12:10-0400 SaO2% (BldA) [Mass fraction] 99 % Josr Furlong DO Work Phone: [facility] [employer] 02-09-2024 12:10-0400 Systolic blood pressure 117 mm[Hg] Josr Furlong DO Work Phone: [facility] 01-29-2024 17:52-0500 Body height 160 cm Josr Furlong DO Work Phone: [facility] 01-29-2024 17:52-0500 Body mass index (BMI) [Ratio] 34.56 kg/m2 Josr Furlong DO Work Phone: [facility] 01-29-2024 17:52-0500 Body temperature 98.49 [degF] Josr Furlong DO Work Phone: [facility] 01-29-2024 17:52-0500 Body weight 88.5 kg Josr Furlong DO Work Phone: [facility] 01-29-2024 17:52-0500 Diastolic blood pressure 65 mm[Hg] Josr Furlong DO Work Phone: [facility] 01-29-2024 17:52-0500 Heart rate 63 /min Josr Furlong DO Work Phone: [facility] 01-29-2024 17:52-0500 Respiratory rate 18 /min Josr Furlong DO Work Phone: [facility] 01-29-2024 17:52-0500 SaO2% (BldA) [Mass fraction] 98 % Josr Furlong DO Work Phone: [facility] 01-29-2024 17:52-0500 Systolic blood pressure 133 mm[Hg] Josr Furlong DO Work Phone: [facility] 01-06-2024 11:41-0500 Diastolic blood pressure 73 mm[Hg] MD Shaikh Serna Work Phone: [facility] 01-06-2024 11:41-0500 Heart rate 92 /min MD Shaikh Serna Work Phone: [facility] 01-06-2024 11:41-0500 Respiratory rate 16 /min MD Shaikh Serna Work Phone: [facility] 01-06-2024 11:41-0500 SaO2% (BldA) [Mass fraction] 97 % MD Shaikh Serna Work Phone: [facility] 01-06-2024 11:41-0500 Systolic blood pressure 152 mm[Hg] MD Shaikh Serna Work Phone: [facility] 01-06-2024 10:00-0500 Body height 157.48 cm MD Shaikh Serna Work Phone: [facility] 01-06-2024 10:00-0500 Body weight 86.18 kg MD Shaikh Serna Work Phone: [facility] 08-20-2023 11:08-0400 Body height 160.02 cm James Pereira Work Phone: [facility] 600 DO Work Phone: 08-20-2023 11:08-0400 Body mass index (BMI) [Ratio] Medical Reason Not Done James Pereira Work Phone: [facility] 600 DO Work Phone: 08-20-2023 11:08-0400 Diastolic blood pressure 52 mm[Hg] James Pereira Work Phone: [facility] 600 DO Work Phone: 08-20-2023 11:08-0400 Heart rate 70 /min James Pereira Work Phone: [facility] 600 DO Work Phone: 08-20-2023 11:08-0400 Systolic blood pressure 110 mm[Hg] James Pereira Work Phone: [facility] 600 DO Work Phone: 04-30-2022 10:57-0400 Body height 160.02 cm James Pereira Work Phone: [facility] 250 DO Work Phone: 04-30-2022 10:57-0400 Body mass index (BMI) [Ratio] 36.67 kg/m2 James Pereira Work Phone: [facility] 250 DO Work Phone: 04-30-2022 10:57-0400 Body surface area Derived from formula 1.96 m2 James Pereira Work Phone: [facility] 250 DO Work Phone: 04-30-2022 10:57-0400 Body weight 93.9 kg James Jasso [place] Work Phone: [facility] 250 DO Work Phone: 04-30-2022 10:57-0400 Diastolic blood pressure 50 mm[Hg] James Jasso [place] Work Phone: [facility] 250 DO Work Phone: 04-30-2022 10:57-0400 Heart rate 64 /min James Jasso [place] Work Phone: [facility] 250 DO Work Phone: 04-30-2022 10:57-0400 Systolic blood pressure 120 mm[Hg] James Jasso [place] Work Phone: [facility] 250 DO Work Phone: 04-16-2022 00:00-0400 60 1 Ingrid Contreras DO Work Phone: [facility] 250 DO Work Phone: Comment on above: [id number] 10-12-2021 14:30-0500 Body height Brian Sawyer Other [employer] Other 10-12-2021 14:30-0500 Body mass index (BMI) [Ratio] 36.61 kg/m2 Brian Sawyer Other [facility] Other 10-12-2021 14:30-0500 Body temperature 98.7 [degF] Brian Sawyer Other [facility] Other 10-12-2021 14:30-0500 Body weight 99.79 kg Brian Sawyer Other [facility] Other 10-12-2021 14:30-0500 Diastolic blood pressure 58 mm[Hg] Brian Sawyer Other [facility] Other 10-12-2021 14:30-0500 SaO2% (BldA) [Mass fraction] 92 % Brian Sawyer Other [facility] Other 10-12-2021 14:30-0500 Systolic blood pressure 94 mm[Hg] Brian Sawyer Other [employer] Other Encounters Encounter Date Encounter Type Care [...] 34.0 to 34.9 in adult; Atherosclerosis of [place] coronary artery of [place] heart without angina pectoris Start: 01-29-2024 ambulatory [...] Start: 01-06-2024 End: 01-06-2024 ambulatory Shaikh Daphne Facility:[facility] Start: 01-06-2024 End: 01-06-2024 Admission to same day surgery center MD Shaikh Serna Work Phone: [facility] [place] Work Phone: Start: 01-06-2024 End: 01-06-2024 ambulatory MD Shaikh Serna Work Phone: [facility] Work Phone: Start: 12-29-2023 Telephone encounter Trent Ramirez MD Work Phone: [facility] Start: 12-17-2023 End: 12-17-2023 ambulatory SHAIKH DAPHNE Not Available Start: 12-16-2023 End: 12-16-2023 ambulatory TRENT RAMIREZ Not Available Start: 12-02-2023 End: 12-02-2023 ambulatory SHAIKH DAPHNE Not Available Start: 11-25-2023 Orders Only Not In System Ref Prov [facility] Start: 11-19-2023 End: 11-24-2023 Emergency department patient visit JAMES PEREIRA [facility] Start: 11-12-2023 End: 11-12-2023 ambulatory ANTONY GRANT Not Available Start: 08-20-2023 Office outpatient vi sit 25 minutes James Pereira Work Phone: [facility] 600 DO Work Phone: Start: 08-20-[address] Ingrid Ibarra II Facility: Start: 12-27-2022 End: 12-27-2022 ambulatory LARA EDOUARD Facility:[facility] Start: 06-17-2022 Patient encounter procedure James Jasso [place] Work Phone: [facility] 250 DO Work Phone: Start: 04-30-2022 Office outpatient vi sit 25 minutes James E [place] Work Phone: [facility] 250 DO Work Phone: Start: 04-22-2022 Patient encounter procedure Ingrid Contreras DO Work Phone: [facility] 250 DO Work Phone: Start: 10-12-2021 End: 10-12-2021 ambulatory Brian Sawyer Other [facility] [employer] Other Start: 10-12-2021 Office outpatient vi sit 15 minutes Brian Sawyer [facility] Start: 03-04-2021 End: 03-04-2021 Patient encounter procedure James Pereira -[facility] Start: 07-22-2017 Ambulatory INGRID IBARRA Facil [id number] Procedures Date Procedure Procedure Detail Performing Clinician Start: 11-23-2023 MULTIPLE LABS Not In Sy stem Ref Prov Start: 11-23-1979 Total colonoscopy Willi am Ben DO Work Phone: Appendectomy James E Bristo l Work Phone: Arthroplasty of knee James Jasso [place] Work Phone: Cardiac catheterization Will rey Ben DO Work Phone: Cholecystectomy James E Any stol Work Phone: Hysterectomy [place] E Bristo l Work Phone: Removal of thrombus James Jasso [place] Work Phone: Surgical procedure o n eye proper [place] Work Phone: Plan of Treatment Date Care Activity Detail Author Start: 12-25-2031 DTaP,Tdap and Td Vaccines (2 - Td or Tdap) DTaP,Tdap and Td Vaccines (2 - Td or Tdap) [facility] Start: 02-08-2025 Adult BMI Screening Adult BMI Screening [facility] Start: 01-28-2025 Adult BMI Screening Adult BMI Screening [facility] Start: 01-28-2025 Tobacco Screening Tobacco Screening [facility] Start: 01-21-2024 End: 01-21-2024 Patient encounter procedure 01/21/2024 1:50 PM EST Procedure Visit [facility] [address] [facility] [address] [place] [id number] Antony Grant, DPEsperanza [address] [facility] [address] [place] [address] [facility] Start: 01-20-2024 End: 01-20-2024 Patient encounter procedure 01/20/2024 9:30 AM EST Office Visit [facility] [address] [place] [address] Shaikh Serna MD [address] [place] [address] [facility] Start: 01-14-2024 End: 01-14-2024 Patient encounter procedure 01/14/2024 11:00 AM EST Procedure Visit [facility] [address] [facility] [address] [place] [address] [facility] Start: 01-06-2024 [facility] Start: 01-06-2024 [facility] Start: 01-06-2024 Bone marrow sampling [facility] Start: 07-24-2023 Influenza vaccination [facility] Start: 07-10-2022 FUV, Provider: Ingrid Ibarra, Status: Henrry, Time: 10:50 AM FUV, Provider: Ingrid Ibarra, Status: Pen, Time: 10:50 AM [facility] 250 DO Work Phone: Start: 04-30-2022 FUV, Provider: Cristal Grant, Status: Pen, Time: 10:30 AM FUV, Provider: Cristal Grant, Status: Pen, Time: 10:30 AM [facility] 250 DO Work Phone: Start: 01-15-2022 Adult BMI Screening Adult BMI Screening [facility] Start: 07-24-2018 Pneumococcal Vaccine: 65+ Years (2 - PCV) Pneumococcal Vaccine: 65+ Years (2 - PCV) [facility] Start: 2015 Fall Risk Screening Fall Risk Screening [facility] Start: 2000 Administration of varicella zoster vaccine Zoster (Shingles) Vaccine (1 of 2) [facility] Start: 04-15-1990 Screening for malignant neoplasm of breast Mammogram [facility] Start: 1968 Adult BMI Follow Up Plan Adult BMI Follow Up Plan [facility] Start: 1962 Depression Screening Depression Screening [facility] Start: 1962 Tobacco Screening Tobacco Screening [facility] Start: 1950 Medicare Annual Wellness (AWV) Medicare Annual Wellness (AWV) [facility] Start: 1950 Screening for malignant neoplasm of colon [facility] Start: 1950 Medicare Annual Wellness Visit Medicare Annual Wellness Visit [facility] Basophils [#/volume] in Blood by Automated count [facility] Basophils/100 leukoc ytes in Blood by Automated count [facility] Eosinophils/100 leukocytes in Blood by Automated count [facility] Erythrocyte distribu tion width [Ratio] by Automated count [facility] Erythrocytes [#/volu me] in Blood [facility] Hematocrit [Volume Fraction] of Blood [facility] Hemoglobin [Mass/vol ume] in Blood [facility] Leukocytes [#/volume ] corrected for nucleated erythrocytes in Blood by Automated coun [facility] Leukocytes [#/volume ] in Blood [facility] Lymphocytes [#/volum e] in Blood by Automated count [facility] Lymphocytes/100 leukocytes in Blood by Automated count [facility] MCH [Entitic mass] b y Automated count [facility] MCHC [Mass/volume] b y Automated count [facility] MCV [Entitic volume] by Automated count [facility] Monocytes [#/volume] in Blood by Automated count [facility] Monocytes/100 leukoc ytes in Blood by Automated count [facility] Neutrophils [#/volum e] in Blood by Automated count [facility] Neutrophils/100 leukocytes in Blood by Automated count [facility] Nucleated erythrocyt es [Presence] in Blood by Automated count [facility] Patient Education [facility] Bone Marrow Aspiration or Biopsy [facility] Work Phone: Platelet mean volume [Entitic volume] in Blood by Automated count [facility] Immunizations Immunization Date Immunization Notes Care Provider Fa abdulaziz 12-25-2021 tetanus toxoid, redu zak diphtheria toxoid, and acellular pertussis vaccine, adsorbed [place] Work Phone: [facility] 09-11-2020 influenza virus vacc ine, unspecified formulation [place] Work Phone: [facility] 250 DO Work Phone: 09-08-2020 Fluzone QIV High-Dos e 65YR+ [place] [facility] 09-08-2020 influenza virus vacc ine, unspecified formulation Not Ref Prov [facility] 10-14-2019 influenza, high dose seasonal, preservative-free [place] [facility] 07-24-2017 pneumococcal polysaccharide vaccine, 23 valent [place] Work Phone: [facility] 250 DO Work Phone: 08-28-2015 influenza, high dose seasonal, preservative-free [place] Work Phone: [facility] 250 DO Work Phone: influenza virus vacc ine, unspecified formulation [place] Work Phone: [facility] 250 DO Work Phone: Comment on above: Aug 20122012 Payers Date Payer Category Payer Self-pay [id number] 2023 Medicare [id number] 2023 Private Health Insurance [id number] Private Health Insurance [id number] 1950 Unknown [id number] 1950 Unknown [id number] 1950 Unknown [id number] 1950 Unknown [id number] 1950 Unknown [id number] 1950 Unknown [id number] 1950 Unknown [id number] 1950 Unknown [id number] [id number] 1950 Unknown [id number] [id number] 1950 Unknown [id number] [id number] Medicare [id number] Private Health Insurance [id number] Private Health Insurance [employer] MCR PFFS [id number] Unknown [employer]ET[employer] Unknown [id number] Social History Date Type Detail Facility Start: 07-05-2018 End: 10-02-2020 Tobacco smoking status NHIS Ex-smoker (finding) [facility] Work Phone: Start: 1950 Sex Assigned At Female F [facility] Start: 12-18-2020 End: 01-15-2021 No illicit drug use No illicit drug use [facility] 250 DO Work Phone: Comment on above: Quit 1993; 4 cups tea daily; Start: 12-18-2020 End: 01-15-2021 Sex Assigned At [facility] Other History of tobacco use Current smoker [facility] Start: 07-05-2018 End: 12-02-2023 Tobacco use and exposure Smokeless tobacco non-user [facility] Start: 01-15-2021 End: 01-29-2024 Alcohol intake Current non-drinker of alcohol (finding) [facility] Housing Instability Unknown [facility] Start: 1950 End: 1950 Sex Assigned At Not on file [facility] Start: 12-02-2023 Tobacco smoking stat [facility] Never smoked tobacco [facility] History of tobacco use Passive smoker [facility] Start: 12-17-2023 Alcohol intake Lifetime non-d rony (finding) [facility] Start: 11-12-2023 Alcohol Comment caffeine intak e: 1-2 cups per day (pepsi, ice tea) [facility] Healthcare Medical Equipment Procedure Code Equipment Code Equipment Original Text Equipment Identifier Dates FDA Start: 10-13-2019 [id number] FDA Start: 10-13-2019 [id number] FDA Start: 10-13-2019 CL CLOSURE DEVIC E [...] : 1950 Date of Service: 02/12/2024 Facility: [facility] Type of Visit: Skilled Visit Subjective Kusum Huerta is a 73 y.o. female seen today at longterm facility for No chief complaint on file. [...] have any abdominal pain. She sees a space studies faculty member for her anemia. She said she has [...] Thursday to get in and also her space studies faculty member. I ordered a CBC for her to get on Thursday. She is to go to the emergency room if she has any dizziness, lightheadedness or shortness a breath or other problems. She agrees to do so. We will plan on discharge tomorrow. She has done well with therapy. ELECTRONICALLY SIGNED BY: Josr Leon DO documented in this encounter [facility] 02-09-2024 History of Present illness Narrative Patient Name: Kusum Huerta Date of : 1950 Date of Service: 02/09/2024 Facility: [facility] Type of Visit: Skilled Visit Subjective Kusum Huerta is a 73 y.o. female seen today at longterm facility for therapy visit. Kusum is in [...] to 34.9 in adult 10. Atherosclerosis of [place] coronary artery of [place] heart without angina pectoris Recheck potassium tomorrow with CBC. Continue therapy to reach maximum improvement. Possible discharge to home this weekend. Continue other orders as directed. ELECTRONICALLY SIGNED BY: Josr Leon DO documented in this encounter [facility] 01-29-2024 History of Present illness Narrative Patient Name: Kusum Huerta Date of : 1950 Date of Service: 01/29/2024 Facility: [facility] Type of Visit: Admission H&P Subjective Kusum Huerta is a 73 y.o. female seen today at longterm facility for admission H&P. Kusum presents to [facility] from [facility] where she was admitted for adult [...] neuropathy. 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, Right cheek Chronic back pain HTN (hypertension) [place] (myocardial infarction) ([facility]) 2013 1 stent Obesity Past Surgical History: Procedure Laterality Date APPENDECTOMY CAROTID STENT r/t 1 collapsed 09/2019 CHOLECYSTECTOMY HYSTERECTOMY INJECTION MEDIAL BRANCH NERVE BLOCK: left L45 51 Left 02/25/2019 Performed by Ingrid Beckman MD at [facility] MEDIAL BRANCH NERVE BLOCK: left L45 51 Left 12/31/2018 Performed by Ingrid Beckman MD at [facility] MEDIAL BRANCH NERVE BLOCK: RIGHT [id number] Right 08/27/2018 Performed by Ingrid Beckman MD at [facility] SI JOINT Left 08/12/2019 Performed by Ingrid Beckman MD at [facility] SI JOINT Left SI Joint Left 06/15/2020 Performed by Ingrid Beckman MD at [facility] RADIO FREQUENCY ABLATION: left L45 51 Left 04/15/2019 Performed by Ingrid Beckman MD at [facility] RADIO FREQUENCY ABLATION: right [id number] [id number] Right 05/02/2019 Performed by Ingrid Beckman MD at [facility] RIGHT L3/4, 4/5, 5/1 MBB Right 07/23/2018 Performed by Ingrid Beckman MD at [facility] TOTAL KNEE ARTHROPLASTY Left No family history [...] kg/m Physical Exam Exam conducted with a media supervisor present (granddaughter present). Constitutional: General: She is [...] be discharged home. Full code. Will follow. KING MAKER will see next week in my absence. ELECTRONICALLY SIGNED BY: Josr Leon DO documented in this encounter [facility] 12-30-2023 Telephone encounter Note I called [...] rx. Please advise. documented in this encounter [facility] 12-29-2023 Telephone encounter Note Called patient to reschedule EMG tomorrow due to no tech in office. Patient states that she has four days left of steroid and has no more refill. Wanted to let Dr. Ramirez know and wasn't sure if she needed another rx. Please advise. [facility] 12-27-2022 Note PROCEDURE: XR HAND L [...] authenticated by: RODERICK ESTRELLA Date: 2022-12-27 15:58 [facility] 12-27-2022 Note PROCEDURE: XR HAND L [...] by: RODERICK ESTRELLA Date: 2022-12-27 15:58 [facility] 10-12-2021 Evaluation note Encounter Date Diagnosis [...] Patient care instructions given in writting by [facility] Care At Home document. [facility] Other Evaluation note* Diagnosis Iron deficiency anemia due to chronic blood loss Iron deficiency anemia secondary to blood loss (chronic) Idiopathic progressive neuropathy documented in this encounter [facility] HealthcareEvaluation noteNo assessment information availableGreene [facility] Work Phone: Evaluation note* [...] idiopathic peripheral neuropathy [facility] Diagnosis Acute renal failure superimposed on stage 4 chronic kidney disease, unspecified acute renal failure type ([facility] Primary Congestive heart failure, unspecified HF chronicity, [...] 34.0 to 34.9 in adult Atherosclerosis of [place] coronary artery of [place] heart without angina pectoris documented [facility] Diagnosis Acute renal failure superimposed on stage 4 chronic kidney disease, unspecified acute renal failure type (CMS-HCC)- Primary Congestive heart failure, unspecified HF chronicity, unspecified heart failure type ([facility]) Anemia associated with chronic renal failure Anemia in chronic kidney disease Hyperkalemia Hyperpotassemia Other abnormalities of gait and mobility Muscle weakness (generalized) [facility] - Reported* Type Description Date Medical History hypertension Medical History chronic kidney disease stage 3 Surgical History gall bladder Surgical History appendectomy Surgical History knee replacement, left Surgical History HEART CATH WITH STENT PLACEMENT X1 Hospitalization History see above Hospitalization History URINARY TRACT INFECTION 05/2020 Hospitalization History BLOOD PRESSURE ISSUES [facility] Other History of Present illness Narrative* The [...] medication regimen. She denies medication side effects. -[facility] 250 DO Work Phone: History of Present [...] diet and weight loss were again advocated. [facility] 600 DO Work Phone: InstructionsNot on filedocumented in this encounter [facility]MyOpt[facility] GroupNew [facility] SystemInstructionsNot on filedocumented in this encounter [facility] SystemInstructionsNot on filedocumented in this encounter [facility] SystemInstructionsNot on filedocumented in this encounter [facility] Summary Purpose Family History No Family [...] pain. * Patient was recently hospitalized at [facility]. The patient was seen in Cardiology consult with subsequent cardiovascular management by [facility]. Hospitalization records have been reviewed. * Reason for Cardiology Consultation: ACS * Consulting Rn Angiography: Dr. Contreras * Cardiovascular testing: cardiac cath [...] section and content) DATE CREATED AUTHOR 05/19/2018 [facility] DATE CREATED AUTHOR AUTHOR'S ORGANIZ ATION 12/29/2022 [facility] DATE CREATED AUTHOR AUTHOR'S ORGANIZ ATION 08/28/2023 [facility] DATE CREATED AUTHOR AUTHOR'S ORGANIZ ATION 10/07/[address] [facility] DATE CREATED AUTHOR AUTHOR'S ORGANIZ ATION 11/24/2023 [facility] DATE CREATED AUTHOR AUTHOR'S ORGANIZ ATION 01/07/2024 [facility] DATE CREATED AUTHOR AUTHOR'S ORGANIZ ATION 02/18/2024 [facility] dical Specialists EPIC REASON FOR VISIT (unrecogniz ed section and content) #13 NOT VACCINATED, NO POS C OVID EXP, COUGH, CONGESTION, FEVER Care Teams (unrecognized sec tion and content) Grounds Supervisor Relationship Specialty Start Date End Date James Pereira DO [address] [place] [address] PCP - General 06/30/18 Grounds Supervisor Relationship Specialty Start Date End Date Shaikh Serna MD [address] [place] [address] PCP - General Internal Medicine 12/17/23 Team Status: Active Member Role Status Dates Shaikh Daphne MD Primary Care Provider Active Team Status: Inactive Member Role Status Dates Mary Espana MD Attending Provider Active St art: January 06, 2024 End: January 06, 2024 Shaikh Daphne MD Primary Care Provider Active Start: January 06, 2024 End: January 06, 2024 Grounds Supervisor Relationship Specialty Start Date End Date James Pereira DO [address] [place] [address] PCP General 06/30/18 Grounds Supervisor Relationship Specialty Start Date End Date GailJames DO [address] [place] [address] [facility] General 06/30/18 Grounds Supervisor Relationship Specialty Start Date End Date James Pereira DO [address] [place] [address] [facility] General 06/30/18 Goals (unrecognized section and content) [...] BE BASED ON THE PRIMARY CLINICAL RECORDS. [facility] [employer] provides no warranty or guarantee of the accuracy or completeness of information in this document.
[2024-02-22] MEDS: 0.9 % SODIUM CHLORIDE 1,000 ML 100 ML IV ×3 (00:21→22:20)
[2024-02-22] MEDS: ACETAMINOPHEN 325 MG TABLET 650 MG PO (00:22)
[2024-02-22] MEDS: TIZANIDINE HCL 4 MG TABLET PO ×2 (02:16→21:12)
[2024-02-22] MEDS: METOPROLOL TARTRATE 25 MG TABLET PO ×2 (02:16→21:11)
[2024-02-22 05:48] LABS: Mean Corpuscular HGB Conc 28.4 g/dL (29.9-35.2); Mean Corpuscular Hemoglobin 25.3 pg (26.7-34.0); Mean Platelet Volume 10.6 fL (9.5-13.5); Platelet Count 215 10^3/uL (150-450); Red Blood Count 2.45 10^6/uL (4.20-5.40); Red Cell Distribution Width 16.7 % (11.0-15.0); White Blood Count 5.6 10^3/uL (4.0-11.0)
[2024-02-22 05:59] LABS: Anion Gap 14.1; BUN Creatinine Ratio 17.3; Calcium 7.4 mg/dL (8.5-10.1); Carbon Dioxide 24.3 mmol/L (21.0-32.0); Chloride 105 mmol/L (98-107); Estimated GFR (African America 18 (>=60); Estimated GFR (Non-African Ame 15 (>=60); Glucose 105 mg/dL (74-106); Magnesium 1.5 mg/dL (1.8-2.4); Potassium 4.4 mmol/L (3.5-5.1); Sodium 139 mmol/L (136-145)
[2024-02-22 06:02] LABS: Hematocrit 21.8 % (36.0-48.0); Hemoglobin 6.2 g/dL (12.0-16.0)
[2024-02-22 08:11] LABS: INR 1.03; Partial Thromboplastin Time 30.1 sec (22.3-36.2); Prothrombin Time 10.9 sec (9.0-11.6)
--- NOTE | 2024-02-22 09:07 | P.HP_ITS ---
HPI H&P: HPI History of Present Illness Chief complaint: CHEST PAIN Narrative: Patient presented to the emergency room with chest pain. She has a history of coronary artery disease. No other associated symptoms. Just a general feeling of weakness. Found to have acute renal failure. Her baseline creatinine is 1.55-creatinine on admission was 3.17. Send parts sales representative 204% above baseline for increasing creatinine consistent with acute renal failure. Patient also with significant anemia. I saw patient up on the medical surgical floor, she overall felt somewhat better. Still just very weak. Her hemoglobin is down significantly this morning she is going to receive 2 units of PRBCs. Opioid HPI Opioid Management Most Recent Opioid Data: Last Pain Scale 0 02/22/24 10:55 Last Pain Intensity 0 01/27/24 11:51 Last Pain Assessment 02/22/24 19:00 Last MAR Pain Assessment 02/22/24 10:55 Last ORT Total Score 0 02/22/24 00:10 Last ORT Risk Category Low Risk 02/22/24 00:10 Ur Phencyclidine Scrn Negative (NEGATIVE) 01/25/24 00:20 Review of Systems ROS Status of ROS 10 or more systems reviewed and unremark able except as noted in history and below [facility] Medical History (Updated 02/21/24 @ 22:48 by Javier Conway MD) Acute abdomen ?R10.0 - Acute abdomen (ICD-10) Adult failure to thrive ?R62.7 - Adult failure to thrive (ICD-10) Acute kidney injury superimposed on chronic kidney disease ?N17.9 - Acute kidney failure, unspecified (ICD-10) ?N18.9 - Chronic kidney disease, unspecified (ICD-10) Elevated d-dimer ?R79.89 - Other specified abnormal findings of blood chemistry (ICD-10) Chronic low back pain ?M54.50 - Low back pain, unspecified (ICD-10) ?G89.29 - Other chronic pain (ICD-10) Rhinovirus infection ?B34.8 - Other viral infections of unspecified site (ICD-10) Enterovirus infection ?B34.1 - Enterovirus infection, unspecified (ICD-10) Generalized weakness ?R53.1 - Weakness (ICD-10) Fall from chair ?W07.XXXA - Fall from chair, initial encounter (ICD-10) Lumbar degenerative disc disease ?M51.36 - Other intervertebral disc degeneration, lumbar region (ICD-10) Stage 3a chronic kidney disease (CKD) ?N18.31 - Chronic kidney disease, stage 3a (ICD-10) Opioid use disorder in remission ?F11.91 - Opioid use, unspecified, in remission (ICD-10) Acute on chronic diastolic heart failure ?I50.33 - Acute on chronic diastolic (congestive) heart failure (ICD-10) Hypoxia ?R09.02 - Hypoxemia (ICD-10) COPD (chronic obstructive pulmonary disease) ?J44.9 - Chronic obstructive pulmonary disease, unspecified (ICD-10) Iron deficiency anemia ?D50.9 - Iron deficiency anemia, unspecified (ICD-10) CAD (coronary atherosclerotic disease) ?I25.10 - Atherosclerotic heart disease of [place] coronary artery without angina pectoris (ICD-10) Hypertension ?I10 - Essential (primary) hypertension (ICD-10) Neuropathy ?G62.9 - Polyneuropathy, unspecified (ICD-10) Anemia requiring transfusions ?D64.9 - Anemia, unspecified (ICD-10) Acute on chronic congestive heart failure ?I50.9 - Heart failure, unspecified (ICD-10) CKD (chronic kidney disease) stage 3, GFR 30-59 ml/min ?N18.30 - Chronic kidney disease, stage 3 unspecified (ICD-10) Chronic respiratory failure with hypoxia ?J96.11 - Chronic respiratory failure with hypoxia (ICD-10) Melanoma ?C43.9 - Malignant melanoma of skin, unspecified (ICD-10) History of illicit drug use ?F19.91 - Other psychoactive substance use, unspecified, in remission (ICD- 10) Kidney disease ?N28.9 - Disorder of kidney and ureter, unspecified (ICD-10) CHF (congestive heart failure) ?I50.9 - Heart failure, unspecified (ICD-10) Heart attack ?I21.9 - Acute myocardial infarction, unspecified (ICD-10) Anemia ?D64.9 - Anemia, unspecified (ICD-10) Anemia ?D64.9 - Anemia, unspecified (ICD-10) CHF (congestive heart failure) ?I50.9 - Heart failure, unspecified (ICD-10) Surgical History H/O: hysterectomy ?Z90.710 - Acquired absence of both cervix and uterus (ICD-10) History of cholecystectomy ?Z90.49 - Acquired absence of other specified parts of digestive tract (ICD- 10) History of total left knee replacement ?Z96.652 - Presence of left artificial knee joint (ICD-10) Hx of appendectomy ?Z90.49 - Acquired absence of other specified parts of digestive tract (ICD- 10) History of heart artery stent ?Z95.5 - Presence of coronary angioplasty implant and graft (ICD-10) Family History Father Family history of CHF (congestive heart failure) Family history of diabetes mellitus Family history of hypertension Sister Family history of myocardial infarction Family history of hypertension Mother Family history of COPD (chronic obstructive pulmonary disease) Family history of hypertension Daughter Family history of diabetes mellitus Social History Within the past year, how often did you have a drink containing alcohol: never Within the past year, how many standard drinks containing alcohol did you have on a typical day: 1 or 2 Within the past year, how often did you have six or more drinks on one occasion: never Total score: 0 Score interpretation: A score less than 3 is consistent with normal alcohol consumption. Smoking status: Former smoker Non-prescribed substance use: former substance user, amphetamines/methamphetamines and opiods/painkillers Non-prescribed substance use details: states has been clean for 6 months Previous occupational history: Retired Known occupational exposures/hazards: No Highest level of school completed/degree received: 11th grade Are you now , , , , never or living with a partner: In a typical week, how many times do you talk on the telephone with family, friends, or neighbors: 3 or more times per week How often do you get together with friends or relatives: 3 or more times per week How often do you attend hinduism or baptist services: never Do you belong to any clubs or organizations such as hinduism groups unions, fraternal or athletic groups, or school groups: no Total score: 1 Score interpretation: A score of less than or equal to 1 indicates the most socially isolated. Little interest or pleasure in doing things: not at all Feeling down, depressed, or hopeless: not at all Feel stressed/tense/nervous/anxious/difficulty sleeping: not at all Gender Identity: female Meds Home Medications and Allergies Home Medications ?Medication ?Instructions ?Recorded ?Confirmed ?Type metoprolol tartrate 25 mg tablet 25 mg PO Q12H 08/15/23 02/21/24 History valsartan 80 mg tablet 80 mg PO DAILY 08/15/23 02/21/24 History ferrous sulfate 325 mg (65 mg 325 mg PO DAILY 30 days #30 tabs 08/18/23 02/21/24 Rx iron) tablet (Iron (ferrous sulfate)) amlodipine 5 mg tablet 5 mg PO DAILY 11/18/23 02/21/24 History gabapentin 100 mg capsule 100 mg PO TID #90 caps 11/23/23 02/21/24 Rx albuterol sulfate 90 mcg/actuation 2 puff inhalation Q4H PRN 12/12/23 02/21/24 History aerosol inhaler shortness of breath or wheezing buprenorphine 8 mg-naloxone 2 mg 1 tab sublingual BID #60 tabs 01/28/24 02/21/24 Rx sublingual tablet furosemide 20 mg tablet 20 mg PO DAILY 02/21/24 02/21/24 History immune glob,gamma (IgG) 10 5 g IV Q21D 02/21/24 02/22/24 History %-gly-IgA over 50 mcg/mL injection solution (Gammagard Liquid) pregabalin 50 mg capsule 50 mg PO Q8H 02/21/24 02/22/24 History spironolactone 25 mg tablet 25 mg PO DAILY 02/21/24 02/21/24 History tizanidine 4 mg tablet 4 mg PO Q8H PRN muscle spasticity 02/21/24 02/21/24 History buprenorphine 8 mg-naloxone 2 mg 1 film sublingual .QD 02/22/24 02/22/24 History sublingual film Allergies Allergy/AdvReac Type Severity Reaction Status Date / Time No Known Drug Allergies Allergy Verified 02/21/24 19:38 Exam Constitutional Vital Signs, click to edit/add: Last Vital Signs Temp 98.1 F 02/22/24 07:48 Pulse 60 02/22/24 08:00 Resp 16 02/22/24 07:48 BP 99/65 02/22/24 07:48 Pulse Ox 95 02/22/24 07:48 O2 Del Method Nasal Cannula 02/22/24 07:48 O2 Flow Rate 2 02/22/24 07:48 Documenting provider has reviewed patient's vital signs: yes Common normals: no apparent distress Chest Common normals: inspection of chest normal Respiratory Common normals: normal respiratory effort Effort & inspection: able to speak in complete sentences Cardio Common normals: regular rate and regular rhythm GI Common normals: Normal to inspection, nondistended, normoactive bowel sounds present, soft to palpation and non-tender Extremity Common normals: normal to inspection Results Labs Labs: Short CBC 02/21/24 02/22/24 Range/Units 20:05 04:43 WBC 7.2 5.6 (4.0-11.0) 10^3/uL Hgb 7.6 L 6.2 L* (12.0-16.0) g/dL Hct 26.8 L 21.8 L* (36.0-48.0) % Plt Count 260 215 (150-450) 10^3/uL BMP 02/21/24 02/22/24 20:05 04:43 Sodium 138 139 Potassium 4.4 4.4 Chloride 101 105 Carbon Dioxide 24.6 24.3 BUN 53.0 H 53.0 H Creatinine 3.17 H 3.07 H Glucose 124 H 105 Calcium 8.0 L 7.4 L Assessment and Plan Assessment and Plan (1) Chest pain: (2) Dehydration: Plan Chest pain in a patient with known coronary artery disease-troponin so far negative. BNP is somewhat elevated. Will check on echocardiogram. Significant anemia-she states this has been an issue for her in the past, workup with endoscopies this found no active bleeding source. She is not on a PPI as an outpatient. Will start proton pump inhibitors while she is here. 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 Acute renal failure-uncertain etiology other than dehydration, will see if that improves by tomorrow. Given her baseline creatinine was 1.55, creatinine admission 3.17 with a 204% increase above baseline check renal ultrasound Low back pain-continue with home medications Inpatient criteria: Patient found to have significant acute renal failure with a creatinine over 200% above baseline. Uncertain etiology. Workup in progress. Medically necessary treatment will span [address] patient inpatient status, she is likely to have a 3 to 4-day hospital stay.
--- NOTE | 2024-02-22 09:18 | CM.NOTE ---
Rounds made with Dr. Guo, no discharge today. Pt will receive PRBC's today. Pt will also have PT and OT evaluation today for discharge recommendations.
[2024-02-22] MEDS: ACETAMINOPHEN 500 MG TABLET 1000 MG PO (09:55)
[2024-02-22] MEDS: BUPRENORPHINE HCL/NALOXONE HCL 8-2 MG TABLET SUBL 1 TAB SL ×2 (09:55→21:11)
[2024-02-22] MEDS: PANTOPRAZOLE SODIUM 40 MG VIAL IV (09:55)
[2024-02-22] MEDS: FERROUS SULFATE 325 MG TABLET PO ×2 (09:55→21:11)
--- NOTE | 2024-02-22 11:51 | RESP.RT ---
placed on room air
--- NOTE | 2024-02-22 12:22 | SWNOTE1 ---
SW met with pt to discuss dc needs. Pt lives at home with family including her daughter and grandchildren. Pt uses a walker to get around. Pt went to rehab at [place] the last time she was here. She voiced it went well and she was doing well at home. She is current with [facility]. Pt voices she wants to go home with at discharge. She has no dc concerns. SW to follow as needed. STORM sent face sheet, ER note, physician notes, and PT/OT notes to [facility].
[2024-02-22 13:13] LABS: Hematocrit 33.7 % (36.0-48.0); Hemoglobin 9.7 g/dL (12.0-16.0)
[2024-02-22 15:38] LABS: C. Difficile PCR NEGATIVE (NEGATIVE)
--- NOTE | 2024-02-22 15:50 | SWNOTE1 ---
Important Message from [employer] reviewed and discussed with patient. Pt. verbalized understanding and signed the form. Original given to patient and copy placed in patient?s chart.
[2024-02-22 17:11] LABS: Occult Blood Positive
[2024-02-22 17:11] LABS: Hemoglobin 9.5 g/dL (12.0-16.0); Mean Corpuscular HGB Conc 28.8 g/dL (29.9-35.2); Mean Corpuscular Hemoglobin 25.7 pg (26.7-34.0); Mean Corpuscular Volume 89.2 fL (81.0-99.0); Mean Platelet Volume 10.2 fL (9.5-13.5); Platelet Count 248 10^3/uL (150-450); Red Cell Distribution Width 16.5 % (11.0-15.0); White Blood Count 8.3 10^3/uL (4.0-11.0)
[2024-02-22] MEDS: PREGABALIN 50 MG CAPSULE PO ×2 (18:28→21:12)
[2024-02-23] VITALS (12 sets, daily range): BP systolic 92–112; BP diastolic 53–63; PULSE 55–80; TEMP 36.6–36.7; O2SAT 91–96
[2024-02-23 05:00] LABS: Basophils Absolute Auto 0.1 10^3/uL (0.0-0.1); Basophils Percent Auto 0.6 % (0.2-2.0); Eosinophils Absolute Auto 0.2 10^3/uL (0.0-0.7); Eosinophils Percent Auto 2.9 % (0.9-7.0); Hematocrit 30.9 % (36.0-48.0); Hemoglobin 8.8 g/dL (12.0-16.0); Immature Granulocytes Abs Auto 0.06 10^3/uL (0.00-0.03); Immature Granulocytes Pct Auto 0.7 % (0.0-0.5); Lymphocytes Absolute Auto 2.1 10^3/uL (1.2-3.8); Lymphocytes Percent Auto 25.4 % (20.5-60.0); Mean Corpuscular HGB Conc 28.5 g/dL (29.9-35.2); Mean Corpuscular Hemoglobin 25.8 pg (26.7-34.0); Mean Corpuscular Volume 90.6 fL (81.0-99.0); Monocytes Absolute Auto 0.6 10^3/uL (0.3-0.8); Monocytes Percent Auto 6.6 % (1.7-12.0); Neutrophils Absolute Auto 5.3 10^3/uL (1.4-6.5); Neutrophils Percent Auto 63.8 % (43.0-75.0); Platelet Count 232 10^3/uL (150-450); Red Blood Count 3.41 10^6/uL (4.20-5.40); Red Cell Distribution Width 17.1 % (11.0-15.0); White Blood Count 8.3 10^3/uL (4.0-11.0)
[2024-02-23 05:33] LABS: Alanine Aminotransferase 23 U/L (14-59); Albumin Globulin Ratio 0.8; Albumin Level 2.3 g/dL (3.4-5.0); Alkaline Phosphatase 69 U/L (46-116); Anion Gap 15.2; Aspartate Amino Transferase 85 U/L (15-37); BUN Creatinine Ratio 20.5; Bilirubin Total 0.3 mg/dL (0.2-1.0); Calcium 7.8 mg/dL (8.5-10.1); Carbon Dioxide 20.2 mmol/L (21.0-32.0); Chloride 107 mmol/L (98-107); Estimated GFR (African America 24 (>=60); Estimated GFR (Non-African Ame 19 (>=60); Globulin 2.9 g/dL; Glucose 106 mg/dL (74-106); Potassium 4.4 mmol/L (3.5-5.1); Sodium 138 mmol/L (136-145); Total Protein 5.2 g/dL (6.4-8.2)
[2024-02-23] MEDS: 0.9 % SODIUM CHLORIDE 1,000 ML 100 ML IV (08:23)
[2024-02-23] MEDS: METOPROLOL TARTRATE 25 MG TABLET PO (09:27)
[2024-02-23] MEDS: PREGABALIN 50 MG CAPSULE PO (09:27)
[2024-02-23] MEDS: TIZANIDINE HCL 4 MG TABLET PO (09:27)
[2024-02-23] MEDS: BUPRENORPHINE HCL/NALOXONE HCL 8-2 MG TABLET SUBL 1 TAB SL (09:27)
[2024-02-23] MEDS: FERROUS SULFATE 325 MG TABLET PO (09:27)
--- NOTE | 2024-02-23 10:55 | P.DS_ITS ---
DS: Providers Provider Date of admission: 02/22/24 09:05 Primary care physician: Shaikh Daphne MD Consults: 02/22/24 06:22 Consult to Pharmacy Routine Consulting Provider: Reason for consultation: Please [place] me when Med Rec is Updated Has provider been notified: No Occupational Therapy Eval and Treat Routine Reason for consultation: Only if needed for Rehab Has provider been notified: No Physical Therapy Eval and Treat Routine Reason for consultation: Eval and Treat Has provider been notified: No DS: Diagnosis Discharge Diagnosis (1) Chest pain: (2) Dehydration: Plan Chest pain in a patient with known coronary artery disease-troponin so far negative. BNP is somewhat elevated. Will check on echocardiogram. Significant anemia-she states this has been an issue for her in the past, workup with endoscopies this found no active bleeding source. She is not on a PPI as an outpatient. Will start proton pump inhibitors while she is here. 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 Acute renal failure-uncertain etiology other than dehydration, will see if that improves by tomorrow. Given her baseline creatinine was 1.55, creatinine admission 3.17 with a 204% increase above baseline check renal ultrasound Low back pain-continue with home medications Inpatient criteria: Patient found to have significant acute renal failure with a creatinine over 200% above baseline. Uncertain etiology. Workup in progress. Medically necessary treatment will span [address] patient inpatient status, she is likely to have a 3 to 4-day hospital stay. ? DS: Summary Hospital Course Hospital Course: Patient mated with increasing weakness. Found to have acute renal failure and significant upper gastrointestinal blood loss anemia secondary to acute upper gastrointestinal bleeding. She did have positive Hemoccult. She was given 2 units of PRBCs with good improvement in her hemoglobin it is down somewhat today. But overall patient feels much improved. Her acute renal failure is still persisting but overall improved. The patient could benefit from possibly further evaluation with 1 more day of medical treatment, patient insisting on being discharged home and close follow-up with her PCP and neurology and hematology. Medications see list. Follow-up with providers as outlined above Time Spent with Patient Time attestation: Total time spent providing and/or coordinating discharge services: Exam Constitutional Vital Signs, click to edit/add: Last Vital Signs Temp 97.8 F 02/23/24 08:29 Pulse 80 02/23/24 10:00 Resp 20 02/23/24 08:29 BP 112/53 02/23/24 08:29 Pulse Ox 93 L 02/23/24 08:30 O2 Del Method Room Air 02/23/24 08:30 O2 Flow Rate 2 02/22/24 11:50 Documenting provider has reviewed patient's vital signs: yes Common normals: no apparent distress Chest Common normals: inspection of chest normal Respiratory Common normals: normal respiratory effort Effort & inspection: able to speak in complete sentences Cardio Common normals: regular rate and regular rhythm GI Common normals: Normal to inspection, nondistended, normoactive bowel sounds present, soft to palpation and non-tender Extremity Common normals: normal to inspection DS: Data Data Completed and Pending Labs on day of discharge: Labs from last 24 hours 02/23/24 02/22/24 02/22/24 04:27 17:05 13:09 WBC 8.3 8.3 RBC 3.41 L 3.70 L Hgb 8.8 L 9.5 L 9.7 L Hct 30.9 L 33.0 L 33.7 L MCV 90.6 89.2 MCH 25.8 L 25.7 L MCHC 28.5 L 28.8 L RDW 17.1 H 16.5 H Plt Count 232 248 MPV 10.0 10.2 Neut % (Auto) 63.8 Lymph % (Auto) 25.4 [place] % (Auto) 6.6 Eos % (Auto) 2.9 Baso % (Auto) 0.6 Neut # (Auto) 5.3 Lymph # (Auto) 2.1 [place] # (Auto) 0.6 Eos # (Auto) 0.2 Baso # (Auto) 0.1 Abs Immat Gran (auto) 0.06 H Imm/Tot Granulo (auto) 0.7 H Sodium 138 Potassium 4.4 Chloride 107 Carbon Dioxide 20.2 L Anion Gap 15.2 BUN 50.0 H Creatinine 2.44 H Est GFR ( Amer) 24 L Est GFR (Non-Af Amer) 19 L BUN/Creatinine Ratio 20.5 Glucose 106 Calcium 7.8 L Total Bilirubin 0.3 AST 85 H ALT 23 Alkaline Phosphatase 69 NT-Pro-B Natriuret Pep 26904.0 H* Total Protein 5.2 L Albumin 2.3 L Globulin 2.9 Albumin/Globulin Ratio 0.8 Stool Occult Blood C. difficile Toxin PCR Crossmatch 02/22/24 02/22/24 11:01 04:43 WBC RBC Hgb Hct MCV MCH MCHC RDW Plt Count MPV Neut % (Auto) Lymph % (Auto) [place] % (Auto) Eos % (Auto) Baso % (Auto) Neut # (Auto) Lymph # (Auto) [place] # (Auto) Eos # (Auto) Baso # (Auto) Abs Immat Gran (auto) Imm/Tot Granulo (auto) Sodium Potassium Chloride Carbon Dioxide Anion Gap BUN Creatinine Est GFR ( Amer) Est GFR (Non-Af Amer) BUN/Creatinine Ratio Glucose Calcium Total Bilirubin AST ALT Alkaline Phosphatase NT-Pro-B Natriuret Pep Total Protein Albumin Globulin Albumin/Globulin Ratio Stool Occult Blood Positive A C. difficile Toxin PCR Negative Crossmatch See Detail Discharge Plan Discharge Disposition: Home Health Service Condition: Good Discharge Medications: New pantoprazole [Protonix] 40 mg granules for susp in packet 40 mg PO DAILY Qty: 30 11RF Continued metoprolol tartrate 25 mg tablet 25 mg PO Q12H ferrous sulfate [Iron (ferrous sulfate)] 325 mg (65 mg iron) tablet 325 mg PO DAILY 30 Days Qty: 30 0RF amlodipine 5 mg tablet 5 mg PO DAILY gabapentin 100 mg Capsule 100 mg PO TID Qty: 90 0RF buprenorphine-naloxone 8-2 mg Tablet, Sublingual 1 tab sublingual BID Qty: 60 0RF Gammagard Liquid 10 % solution 5 g IV Q21D pregabalin 50 mg capsule 50 mg PO Q8H Patient Comments: 1 CAPSULE EVERY MORNING, CHARLES EVENING AND AT BEDTIME tizanidine 4 mg tablet 4 mg PO Q8H PRN (Reason: muscle spasticity) buprenorphine-naloxone 8-2 mg film 1 film sublingual .QD Rx Instructions: 1 &1/2 FILM; albuterol sulfate 90 mcg/actuation HFA aerosol inhaler 2 puff INHALATION Q4H PRN (Reason: shortness of breath or wheezing) Discontinued valsartan 80 mg tablet 80 mg PO DAILY spironolactone 25 mg tablet 25 mg PO DAILY furosemide 20 mg tablet 20 mg PO DAILY Activity: increase activity as tolerated Diet: advance to your usual diet Print Language: Kinyarwanda Patient Instructions: Pantoprazole (By mouth), Dehydration (DC) 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 Fuentes (cardio) [phone] March 03 @ 10am with Meena Wills NP (Dr. Serna on vacation) [phone] Discharge Date/Time: 02/23/24 12:40
--- NOTE | 2024-02-23 10:57 | CM.NOTE ---
Rounds made with Dr. Guo, pt will discharge to home today with [facility]. Discussed with pt about f/u with die casting machine setter.
[2024-02-23] MEDS: PANTOPRAZOLE SODIUM 40 MG VIAL IV (10:58)
--- NOTE | 2024-02-23 12:57 | SWNOTE1 ---
STORM sent dc med rec and CRF to [facility].
--- NOTE | 2024-02-25 14:31 | CM.DCFOLLOWU ---
Person spoke with: Kusum How are you feeling? Great How is your pain? No pain Did you understand your discharge instructions? Yes Do you have any questions about your discharge instructions? No Were you given any prescriptions at discharge? Yes Were you able to get your prescriptions filled? Will burr picker today Do you understand how to take your medications as ordered? Yes Do you have any questions about your follow up appointment and do you plan to keep your follow up appointment? No and yes I plan on keeping appt's Is there anything else that you would like to discuss? No Questions/Comments/Concerns/Other:
== END 2024-02-23 12:40 | disposition home health service (06) | DRG 683 ==
LOC: ER 22:48 → MS 02-22 00:09
PROVIDERS: Registered Nurse; Admitting Provider Family Medicine; Emergency Provider Emergency Medicine; PCP Internal Medicine; Visit Provider Family Medicine
DX: N17.9 Acute kidney failure, unspecified (principal); G37.89 Other specified demyelinating diseases of central nervous system; I13.0 Hypertensive heart and chronic kidney disease with heart failure and stage 1 through stage 4 chronic kidney disease, or unspecified chronic kidney disease; I50.32 Chronic diastolic (congestive) heart failure; D50.0 Iron deficiency anemia secondary to blood loss (chronic); K92.2 Gastrointestinal hemorrhage, unspecified; G62.9 Polyneuropathy, unspecified; R19.5 Other fecal abnormalities; R07.89 Other chest pain; N18.31 Chronic kidney disease, stage 3a; E86.0 Dehydration; J44.9 Chronic obstructive pulmonary disease, unspecified; I25.10 Atherosclerotic heart disease of native coronary artery without angina pectoris; I25.2 Old myocardial infarction; M51.36 Other intervertebral disc degeneration, lumbar region; Z96.652 Presence of left artificial knee joint; Z95.5 Presence of coronary angioplasty implant and graft; Z87.891 Personal history of nicotine dependence; Z85.820 Personal history of malignant melanoma of skin; Z79.899 Other long term (current) drug therapy; Z82.49 Family history of ischemic heart disease and other diseases of the circulatory system
CPT/HCPCS: 36415; 36430; 71045; 80048; 80053; 81001; 83735; 83880; 84484; 85014; 85018; 85025; 85027; 85610; 85730; 86850; 86900; 86901; 87086; 87493; 93005; 94667; 94668; 94761; 96361; 96374; 96375; 96376; 97161; 97165; 97530; 99285; G0328; P9016

== ENCOUNTER 2024-03-08 07:39 | Outpatient (RCR) | payer MEDICARE, SELFPAY ==
[2024-03-08 12:17] LABS: Alanine Aminotransferase 13 U/L (14-59); Albumin Globulin Ratio 0.5; Albumin Level 2.3 g/dL (3.4-5.0); Alkaline Phosphatase 72 U/L (46-116); Anion Gap 13.3; Aspartate Amino Transferase 22 U/L (15-37); BUN Creatinine Ratio 18.1; Bilirubin Total 0.4 mg/dL (0.2-1.0); Calcium 8.6 mg/dL (8.5-10.1); Chloride 105 mmol/L (98-107); Estimated GFR (African America 33 (>=60); Estimated GFR (Non-African Ame 27 (>=60); Glucose 110 mg/dL (74-106); Potassium 4.3 mmol/L (3.5-5.1); Sodium 138 mmol/L (136-145); Total Protein 7.3 g/dL (6.4-8.2)
[2024-03-08 12:18] LABS: Basophils Absolute Auto 0.1 10^3/uL (0.0-0.1); Basophils Percent Auto 1.2 % (0.2-2.0); Eosinophils Percent Auto 0.6 % (0.9-7.0); Hematocrit 25.7 % (36.0-48.0); Hemoglobin 7.6 g/dL (12.0-16.0); Immature Granulocytes Abs Auto 0.03 10^3/uL (0.00-0.03); Immature Granulocytes Pct Auto 0.4 % (0.0-0.5); Lymphocytes Absolute Auto 2.1 10^3/uL (1.2-3.8); Mean Corpuscular HGB Conc 29.6 g/dL (29.9-35.2); Mean Corpuscular Hemoglobin 25.4 pg (26.7-34.0); Mean Platelet Volume 10.3 fL (9.5-13.5); Monocytes Absolute Auto 0.5 10^3/uL (0.3-0.8); Monocytes Percent Auto 6.2 % (1.7-12.0); Neutrophils Absolute Auto 4.6 10^3/uL (1.4-6.5); Neutrophils Percent Auto 62.6 % (43.0-75.0); Platelet Count 285 10^3/uL (150-450); Red Blood Count 2.99 10^6/uL (4.20-5.40); Red Cell Distribution Width 18.4 % (11.0-15.0); White Blood Count 7.3 10^3/uL (4.0-11.0)
[2024-03-08 12:25] LABS: Percent Iron Saturation 24.8 %
[2024-03-08 13:45] LABS: Erythrocyte Sedimentation Rate 49 mm/hr (<=30)
[2024-03-09 18:07] LABS: Erythropoietin (EPO), Serum 51.4 mIU/mL (2.6-18.5)
== END 2024-03-22 23:59 | disposition home or self-care (01) ==
LOC: INF 07:39
PROVIDERS: PCP Internal Medicine; Visit Provider Internal Medicine Hematology & Oncology
DX: D64.9 Anemia, unspecified (principal); R93.89 Abnormal findings on diagnostic imaging of other specified body structures; M85.80 Other specified disorders of bone density and structure, unspecified site; M89.9 Disorder of bone, unspecified; N18.4 Chronic kidney disease, stage 4 (severe); D63.1 Anemia in chronic kidney disease
CPT/HCPCS: 36415; 80053; 82668; 82728; 83540; 83550; 85025; 85652; 86140; G0463

== ENCOUNTER 2024-04-12 07:44 | Outpatient (RCR) | payer MEDICARE, SELFPAY ==
[2024-04-12 10:29] LABS: Basophils Absolute Auto 0.1 10^3/uL (0.0-0.1); Basophils Percent Auto 1.2 % (0.2-2.0); Eosinophils Absolute Auto 0.2 10^3/uL (0.0-0.7); Eosinophils Percent Auto 4.2 % (0.9-7.0); Hematocrit 30.6 % (36.0-48.0); Hemoglobin 8.8 g/dL (12.0-16.0); Immature Granulocytes Abs Auto 0.02 10^3/uL (0.00-0.03); Immature Granulocytes Pct Auto 0.5 % (0.0-0.5); Lymphocytes Absolute Auto 1.3 10^3/uL (1.2-3.8); Lymphocytes Percent Auto 30.4 % (20.5-60.0); Mean Corpuscular HGB Conc 28.8 g/dL (29.9-35.2); Mean Corpuscular Hemoglobin 25.8 pg (26.7-34.0); Mean Corpuscular Volume 89.7 fL (81.0-99.0); Mean Platelet Volume 9.4 fL (9.5-13.5); Monocytes Absolute Auto 0.5 10^3/uL (0.3-0.8); Monocytes Percent Auto 10.4 % (1.7-12.0); Neutrophils Absolute Auto 2.3 10^3/uL (1.4-6.5); Neutrophils Percent Auto 53.3 % (43.0-75.0); Platelet Count 206 10^3/uL (150-450); Red Blood Count 3.41 10^6/uL (4.20-5.40); Red Cell Distribution Width 20.3 % (11.0-15.0); White Blood Count 4.3 10^3/uL (4.0-11.0)
[2024-04-12 10:46] LABS: Alanine Aminotransferase 17 U/L (14-59); Albumin Globulin Ratio 0.8; Alkaline Phosphatase 95 U/L (46-116); Anion Gap 16.6; Aspartate Amino Transferase 13 U/L (15-37); BUN Creatinine Ratio 26.6; Bilirubin Total 0.4 mg/dL (0.2-1.0); Calcium 8.8 mg/dL (8.5-10.1); Carbon Dioxide 19.8 mmol/L (21.0-32.0); Chloride 107 mmol/L (98-107); Estimated GFR (African America 30 (>=60); Estimated GFR (Non-African Ame 25 (>=60); Globulin 3.9 g/dL; Glucose 98 mg/dL (74-106); Potassium 5.4 mmol/L (3.5-5.1); Sodium 138 mmol/L (136-145); Total Protein 6.9 g/dL (6.4-8.2)
[2024-04-12] MEDS: EPOETIN ALFA-EPBX 20,000 UNIT/ML VIAL 20000 UNIT SUBQ (11:14)
== END 2024-04-22 23:59 | disposition home or self-care (01) ==
LOC: INF 07:44
PROVIDERS: PCP Internal Medicine; Visit Provider Internal Medicine Hematology & Oncology
DX: R93.89 Abnormal findings on diagnostic imaging of other specified body structures (principal); M85.80 Other specified disorders of bone density and structure, unspecified site; M89.9 Disorder of bone, unspecified; N18.4 Chronic kidney disease, stage 4 (severe); D63.1 Anemia in chronic kidney disease; E83.52 Hypercalcemia; Z90.710 Acquired absence of both cervix and uterus; Z90.49 Acquired absence of other specified parts of digestive tract; Z96.652 Presence of left artificial knee joint
CPT/HCPCS: 36415; 80053; 85025; 96372; G0463; Q5106

== ENCOUNTER 2024-05-10 07:14 | Outpatient (RCR) | payer MEDICARE, SELFPAY ==
[2024-04-26 11:37] VITALS: BP 144/74; PULSE 80; TEMP 36.6; O2SAT 97
--- NOTE | 2024-04-26 11:41 | PC.NURSE ---
1120 Arrival per wheelchair. alert oriented. Labs drawn per Keeley Ryan RN and sent to lab.
[2024-04-26 12:18] LABS: Hematocrit 29.1 % (36.0-48.0); Hemoglobin 8.6 g/dL (12.0-16.0); Mean Corpuscular HGB Conc 29.6 g/dL (29.9-35.2); Mean Corpuscular Hemoglobin 25.7 pg (26.7-34.0); Mean Corpuscular Volume 86.9 fL (81.0-99.0); Mean Platelet Volume 9.8 fL (9.5-13.5); Platelet Count 252 10^3/uL (150-450); Red Blood Count 3.35 10^6/uL (4.20-5.40); White Blood Count 2.9 10^3/uL (4.0-11.0)
[2024-04-26] MEDS: EPOETIN ALFA-EPBX 20,000 UNIT/ML VIAL 20000 UNIT SUBQ (12:32)
[2024-04-26 13:21] LABS: Basophils Abs Manual 0.02 10^3/uL (0.00-0.10); Lymphocytes Absolute Manual 1.71 10^3/uL (1.20-3.80); Segmented Neut Absolute Manual 0.75 10^3/uL (1.4-6.5)
[2024-04-26 13:22] LABS: Anisocytosis 1+; Ovalocytes 1+; Poikilocytosis 1+
[2024-05-10 09:50] VITALS: BP 163/70; PULSE 71; TEMP 36.8; O2SAT 97
[2024-05-10 10:10] LABS: Basophils Absolute Auto 0.1 10^3/uL (0.0-0.1); Basophils Percent Auto 1.6 % (0.2-2.0); Eosinophils Absolute Auto 0.2 10^3/uL (0.0-0.7); Eosinophils Percent Auto 3.6 % (0.9-7.0); Hematocrit 30.4 % (36.0-48.0); Hemoglobin 8.9 g/dL (12.0-16.0); Immature Granulocytes Abs Auto 0.05 10^3/uL (0.00-0.03); Lymphocytes Absolute Auto 1.8 10^3/uL (1.2-3.8); Lymphocytes Percent Auto 35.4 % (20.5-60.0); Mean Corpuscular HGB Conc 29.3 g/dL (29.9-35.2); Mean Corpuscular Hemoglobin 25.9 pg (26.7-34.0); Mean Corpuscular Volume 88.4 fL (81.0-99.0); Mean Platelet Volume 9.7 fL (9.5-13.5); Monocytes Absolute Auto 0.5 10^3/uL (0.3-0.8); Monocytes Percent Auto 10.5 % (1.7-12.0); Neutrophils Absolute Auto 2.4 10^3/uL (1.4-6.5); Neutrophils Percent Auto 47.9 % (43.0-75.0); Platelet Count 256 10^3/uL (150-450); Red Blood Count 3.44 10^6/uL (4.20-5.40); White Blood Count 4.9 10^3/uL (4.0-11.0)
[2024-05-10 10:17] LABS: Alanine Aminotransferase 16 U/L (14-59); Albumin Globulin Ratio 0.7; Alkaline Phosphatase 93 U/L (46-116); Anion Gap 15.4; Aspartate Amino Transferase 15 U/L (15-37); Bilirubin Total 0.4 mg/dL (0.2-1.0); Calcium 8.9 mg/dL (8.5-10.1); Carbon Dioxide 22.9 mmol/L (21.0-32.0); Chloride 104 mmol/L (98-107); Estimated GFR (African America 38 (>=60); Estimated GFR (Non-African Ame 31 (>=60); Globulin 4.3 g/dL; Glucose 96 mg/dL (74-106); Lactate Dehydrogenase 117 U/L (81-234); Potassium 5.3 mmol/L (3.5-5.1); Sodium 137 mmol/L (136-145); Total Protein 7.3 g/dL (6.4-8.2)
[2024-05-10] MEDS: EPOETIN ALFA-EPBX 20,000 UNIT/ML VIAL 20000 UNIT SUBQ (10:39)
[2024-05-10 10:43] LABS: Reticulocyte Pct Auto 1.82 % (0.60-3.10)
[2024-05-10 11:08] LABS: Red Cell Distribution Width 18.6 % (11.0-15.0)
[2024-05-11 04:08] LABS: Haptoglobin 220 mg/dL (42-346)
== END 2024-05-11 15:09 | disposition home or self-care (01) ==
LOC: INF 07:14
PROVIDERS: PCP Internal Medicine; Visit Provider Internal Medicine Hematology & Oncology
DX: R93.89 Abnormal findings on diagnostic imaging of other specified body structures (principal); D63.1 Anemia in chronic kidney disease; M85.80 Other specified disorders of bone density and structure, unspecified site; M89.9 Disorder of bone, unspecified; N18.4 Chronic kidney disease, stage 4 (severe)
CPT/HCPCS: 36415; 80053; 83010; 83615; 85007; 85025; 85027; 85045; 96372; Q5106

== ENCOUNTER 2024-05-16 14:05 | Emergency (ER) | payer MEDICARE, SELFPAY ==
[2024-05-16 14:05] VITALS: BP 165/89; PULSE 106; TEMP 36.9; O2SAT 96; BMI 32.4
--- OUTSIDE RECORDS SUMMARY | 2024-05-16 14:18 | XMS_ITS | CCD ---
Author Organization [facility] Care Team Providers Care Police Chief Name Role Phone INGRID IBARRA Unavailable Unavailable INGRID IBARRA Unavailable Unavailable James Pereira Primary Care Provider [phone] NON, STAFF, Attending Provider Unavailable Unavailable Unavailable James Pereira Unavailable Unavailable Unavailable Brian Sawyer Unavailable Unavailable Unavailable SILKE LARA Admitting Unavailable OMAR EDOUARDM Attending Unavailable DR JAMES PEREIRA Primary Care Unavailable RODERICK ESTRELLA Consulting Unavailable CHARLEY LUCAS Consulting Unavailable MARLON METCALF Consulting Unavailable SILKE LARA Consulting Unavailable Julio WALLER, Dr. Ingrid [...] [place]span[place] Attending Unavailable Mary Espana Admitting Unavailable INGRID IBARRA Attending Unavailable SHAIKH SERNA Primary Care Unavailable SHAIKH SERNA Attending Unavailable TRENT RAMIREZ Attending Unavailable SHAIKH SERNA Attending Unavailable SHAIKH SERNA Attending Unavailable ANTONY GRANT Attending Unavailable SHAIKH SERNA Attending Unavailable SHAIKH SERNA Attending Unavailable TRENT RAMIREZ Attending Unavailable Unavailable Unavailable Unavailable Allergies Allergy Classification Reported Allergen(s) Allergy Type Date of Onset Reaction(s) Facility (1 source) Non-steroidal anti-inflammato ry agent Drug Allergy 3 Unknown [facility] (3 sources) Non-steroidal anti-inflammato ry agent; Translations: [NSAIDS (NON-STEROIDAL ANTI-INFLAMMATO RY DRUG)] Propensity to adverse reactions to drug 3 Other (See Comments) [facility] Medications Current Medications Medication Drug Class(es) Dates Sig (Normalized) Sig (Original) acetaminophen 325 mg oral tablet (7 sources) Start: 09-09-2020 take 650 mg by mouth every six hours Acetaminophen Active 650 MG PO Q6H 0 September 09, 2020 12:00am take 1 tablet by mouth every six hours acetaminophen (Tylenol) 325 MG tablet Take 325 mg by mouth every 6 (six) hours 0 Active [id number] actuat albuterol 0.09 mg/actuat metered dose inhaler (5 sources) beta2-Adrenergic Agonist Start: 05-04-2024 take 1 puff(s) by inhalation every four hours Albuterol Sulfate Active 2 PUFF INHALATION Every 4 hours May 04, 2024 12:00am Start: 12-02-2023 End: 01-01-2024 take 2 puff(s) by inhalation every four hours for wheezing albuterol HFA 90 mcg/act inhaler Indications: Chronic obstructive pulmonary disease, unspecified COPD type ([facility]) Inhale 2 puffs every 4 (four) hours if needed for wheezing or shortness of breath 8.5 g 1 12/02/2023 01/01/2024 Active Start: 10-25-2021 End: 12-25-2021 take 1 puff(s) by inhalation every four hours Albuterol Sulfate (Ventolin Hfa) 90 mcg/actuation Hfa Aerosol Inhaler Discontinued 2 PUFF INHALATION Q4H 11 29October 25, 2021 1:00am December 25, 2021 6:35pm Start: 10-12-2021 take 2 puff(s) by in halation every four hours as needed Albuterol Sulfate HFA 108 (90 Base) MCG/ACT 2 puffs Inhalation every 4 hours as needed for 7 days Sep, Active amLODIPine 5 mg oral tablet (17 sources) Dihydropyridine Calcium Channel Bronwyn Start: 05-04-2024 take 10 mg by mouth once daily Amlodipine Active 10 MG PO Daily May 04, 2024 9:58am Start: 05-04-2024 End: 05-04-2024 take 5 mg by mouth once daily Amlodipine Discontinued 5 MG PO Daily May 04, 2024 12:00am May 04, 2024 9:58am Start: 08-20-2023 take 1 tablet by lucio th once daily amLODIPine Besylate 5 MG Oral Tablet TAKE 1 TABLET DAILY. Quantity: 90 Refills: 3 Ordered: 20-Aug-2023 Ingrid Ibarra MD Start : 20-Aug-2023 Active Start: 04-20-2018 End: 05-04-2024 take 10 mg by mouth once daily in the morning Amlodipine Discontinued 10 MG PO Every morning April 05, 2019 12:00am September 09, 2020 12:40pm apixaban 2.5 mg oral tablet (1 source) Factor Xa Inhibitor Start: 05-04-2024 take 1 tablet by mouth twice daily Apixaban (Eliquis) 2.5 mg tablet Active 2.5 MG PO Twice daily May 04, 2024 12:00am aspirin 81 mg chewable tablet (11 sources) Platelet Aggregation Inhibitor, Nonsteroidal Anti-inflammatory Drug Start: 10-14-2019 End: 08-29-2020 take 81 mg by mouth once daily in the morning Aspirin Active 81 MG PO Every morning August 29, 2020 4:42pm take 1 tablet by mouth in the mo rning aspirin 81 MG EC tablet Take 81 mg by mouth in the morning. 0 Active atorvastatin 80 mg oral tablet (14 sources) HMG-CoA Reductase Inhibitor Start: 04-18-2022 take 80 mg by mouth once daily in the evening Atorvastatin Active 80 MG PO Every evening April 18, 2022 12:00am Start: 10-13-2019 End: 04-18-2022 take 40 mg by mouth once daily in the evening Atorvastatin Discontinued 40 MG PO Every evening September 09, 2020 12:39pm April 18, 2022 1:26pm azithromycin 250 mg oral tablet (1 source) [...] mg / naloxone 2 mg sublingual film (3 sources) Partial Opioid Agonist, Opioid Antagonist Start: 05-04-2024 Buprenorphine-Naloxo ne Active 0 SUBLINGUAL Daily May 04, 2024 12:00am 1.5 film sublingually daily; Start: 11-09-2023 Buprenorphine HCl-Naloxone HCl (Suboxone) 8-2 MG SL film DISSOLVE 1.5 film UNDER THE TONGUE ONCE DAILY 0 11/09/2023 Active Buprenorphine HC l-Naloxone HCl - 8-2 MG Sublingual Film as directed Quantity: 0 Refills: 0 Ordered: 20-Aug-2023 DO Active 168 hr cloNIDine 0.72992 mg/hr transdermal system (7 sources) Central alpha-2 Adrenergic Agonist Start: 12-24-2020 cloNIDine (CATAPRES- TTS) 0.2 mg/24 hr apply ONE PATCH EACH Week @0900 IN THE MORNING 0 12/24/2020 Active Start: 09-09-2020 End: 12-25-2021 Clonidine Discontinued 1 EAC H TRANSDERML We@0900 4 September 09, 2020 12:00am December 25, 2021 6:36pm diclofenac sodium 0.01 mg/mg topical gel (4 sources) Nonsteroidal Anti-inflammatory Drug Start: 03-24-2019 diclofenac sodium (VOLTAREN) 1 % gel Apply 2 g topically 4 (four) times a day. 100 g 0 03/24/2019 Active ferrous sulfate 325 mg oral tablet (15 sources) Start: 05-04-2024 take 1 tablet by mouth once daily Ferrous Sulfate (Ferosul) 325 mg (65 mg iron) tablet Active 325 MG PO Daily May 04, 2024 12:00am Start: 12-02-2023 End: 03-01-2024 take 1 tablet by mouth at mealtime ferrous sulfate (FerrouSul) 325 (65 Fe) MG tablet Indications: Iron deficiency anemia due to chronic blood loss Take 1 tablet (325 mg) by mouth in the morning. Take with meals. 30 tablet 2 12/02/2023 03/01/2024 Active Start: 08-29-2020 End: 05-04-2024 take 325 mg by mouth once daily in the morning Ferrous Sulfate Discontinued 325 MG PO Every morning September 09, 2020 12:39pm May 04, 2024 9:48am take 1 tablet by lucio th once daily Ferrous Sulfate 324 MG Oral Tablet Delayed Release Take 1 tablet daily Quantity: 0 Refills: 0 Ordered: 30-Apr-2022 DO Active fluconazole 150 mg oral tablet (1 source) Azole Antifungal Start: 05-04-2024 take 150 mg by mouth every week Fluconazole Active 150 MG PO every week May 04, 2024 12:00am furosemide 20 mg oral tablet (5 sources) Loop Diuretic Start: 05-04-2024 take 20 mg by mouth once daily Furosemide Active 20 MG PO Daily May 04, 2024 12:00am Start: 01-06-2024 End: 05-04-2024 take 1 tablet by mouth once daily Furosemide (Lasix) 40 mg tablet Discontinued 40 MG PO Daily January 06, 2024 1:00am May 04, 2024 9:48am Start: 08-20-2023 take 1 tablet by lucio [...] mg before bedtime. 0 11/23/2023 Active hydroCHLOROthiazide 12.5 mg oral tablet (15 sources) Thiazide Diuretic Start: 05-04-2024 take 12.5 mg by mouth once daily Hydrochlorothiazide Active 12.5 MG PO Daily May 04, 2024 12:00am Start: 09-09-2020 End: 04-18-2022 take 25 mg by mouth once daily in the morning Hydrochlorothiazide Discontinued 25 MG PO Every morning September 09, 2020 12:00am April 18, 2022 1:26pm Start: 06-05-2020 End: 09-09-2020 take 12.5 mg by mouth once daily in the morning Hydrochlorothiazide Discontinued 12.5 MG PO Every morning August 29, 2020 4:42pm September 09, 2020 12:40pm further refills per PCP or Dr. Ibarra 50 ml immunoglobulin g, human 100 mg/ml injection (1 source) Human Immunoglobulin G Start: 05-04-2024 Immun Glob G(Igg)-Gly-Iga Ov50 (Gammagard Liquid) 10 % solution Active 50 GM IV .COMPLEX May 04, 2024 12:00am 50 grams intravenously Q 21 days; lisinopril 40 mg oral tablet (15 sources) Angiotensin Converting Enzyme Inhibitor Start: 05-04-2024 take 40 mg by mouth once daily Lisinopril Active 40 MG PO Daily May 04, 2024 12:00am Start: 04-05-2019 End: 04-06-2019 take 5 mg by mouth once daily Lisinopril Discontinued 5 MG PO Daily April 05, 2019 12:00am April 06, 2019 12:58pm Start: 04-20-2018 End: 04-18-2022 take 40 mg by mouth once daily in the morning Lisinopril Discontinued 40 MG PO Every morning September 09, 2020 12:39pm April 18, 2022 1:26pm magnesium gluconate 550 mg oral tablet (4 [...] as needed. 0 12/24/2020 Active metoprolol tartrate 50 mg oral tablet (16 sources) beta-Adrenergic Bronwyn Start: 05-04-2024 take 50 mg by mouth twice daily Metoprolol Tartrate Active 50 MG PO Twice daily May 04, 2024 12:00am Start: 09-09-2020 End: 05-04-2024 take 25 mg by mouth every twelve hours Metoprolol Tartrate Discontinued 25 MG PO Every 12 hours 30 September 09, 2020 12:00am May 04, 2024 9:48am Start: 06-03-2020 End: 09-09-2020 take 50 mg by mouth every twelve hours Metoprolol Tartrate Discontinued 50 MG PO Every 12 hours June 03, 2020 12:00am September 09, 2020 12:40pm Start: 06-24-2018 take [...] DO Active nitroglycerin 0.4 mg sublingual tablet (7 sources) Nitrate Vasodilator Start: 10-14-2019 Nitroglycerin Active 0.4 MG SUBLINGUAL Q5M 25 October 14, 2019 1:00am omeprazole 40 mg delayed release oral capsule (1 source) Proton Pump Inhibitor Start: 12-17-2023 End: 03-16-2024 take 1 capsule by mouth before mealtime omeprazole (PriLOSEC) [address] capsule Indications: Gastroesophageal reflux disease without esophagitis Take 1 capsule (40 mg) by mouth in the morning. Take before meals. Do not crush or chew.. 90 capsule 0 12/17/2023 03/16/2024 Active ondansetron 4 mg oral tablet (1 source) Serotonin-3 Receptor Antagonist Start: 05-04-2024 take 4 mg by mouth every eight hours Ondansetron Hcl Active 4 MG PO Every 8 hours May 04, 2024 12:00am predniSONE 20 mg oral tablet (3 sources) [...] Start: 10-12-2021 take 2 tablets by [facility] every twenty-four hours predniSONE 20 MG 2 tablets Orally Once a day for 5 days Sep, Active pregabalin 75 mg oral capsule (1 source) Start: 05-04-2024 take 75 mg by mouth twice daily Pregabalin Active 75 MG PO Twice daily May 04, 2024 12:00am spironolactone 25 mg oral tablet (3 sources) Aldosterone Antagonist Start: 12-03-2023 End: 12-02-2024 take 25 mg by mouth once daily Spironolactone Active 25 MG PO Daily May 04, 2024 12:00am take 1 tablet by mouth once scott y Spironolactone 25 MG Oral Tablet TAKE 1 TABLET DAILY. Quantity: 90 Refills: 3 Ordered: 20-Aug-2023 DO Active thiamine 100 mg oral tablet (3 sources) Start: 12-16-2023 End: 12-15-2024 take 100 mg by mouth once daily Thiamine Hcl (Vitamin B1) Active 100 MG PO Daily May 04, 2024 12:00am tiZANidine 4 mg oral tablet (2 sources) Central alpha-2 Adrenergic Agonist Start: 05-04-2024 take 4 mg by mouth every eight hours Tizanidine Active 4 MG PO Every 8 hours May 04, 2024 12:00am Start: 12-17-2023 End: 03-16-2024 take 1 tablet [...] tablet traMADol hydrochloride 50 mg oral tablet (10 sources) Opioid Agonist Start: 02-28-2021 take 1 [...] Discontinued MG TAB LET August 29, 2020 12:00am August 29, 2020 4:43pm Start: 04-05-2019 End: 12-25-2021 take 50 mg by mouth every six hours Tramadol Discontinued 50 MG PO Every 6 hours April 05, 2019 12:00am December 25, 2021 6:36pm Vitamin B Comp And C No.3 (3 sources) Start: 06-05-2020 take 1 capsule by mouth once daily at mealtime Vitamin B Comp And C No.3 Active 1 CAP PO Daily June 05, 2020 4:59pm give with food (meal/snack) Start: 06-05-2020 End: 05-04-2024 take 1 capsule by mouth once daily at mealtime Vitamin B Comp And C No.3 Discontinued 1 CAP PO Daily June 05, 2020 12:00am May 04, 2024 9:48am give with food (meal/snack) Start: 06-05-2020 take 1 capsule by mo [facility] once daily at mealtime Vitamin B Comp And C No.3 Active 1 CAP PO Daily June 04, 2020 11:00pm give with food (meal/snack) vitamin B12 (1 source) Vitamin B12 Start: 05-04-2024 take 500 ug by mouth once daily Cyanocobalamin (Vitamin B-12) Active 500 MCG PO Daily May 04, 2024 12:00am Vitamin B12 500 MCG (1 source) take 1 tablet by mouth once daily Vitamin B12 500 MCG 1 tablet Orally Once a day Active Completed/Discontinued Medications Medication Drug Class(es) Dates Sig (Normalized) Sig (Original) bacitracin 0.5 unt/mg ophthalmic ointment (6 sources) Start: 09-06-2020 End: 10-22-2021 Bacitracin Discontinued 1 APPLIC OPHTHALMIC Q8H 7 October 02, 2020 1:00am October 21, 2021 9:50am cephalexin 500 mg oral capsule (2 sources) Cephalosporin Antibacterial Start: 10-25-2021 End: 12-25-2021 take 500 mg by mouth twice daily Cephalexin Discontinued 500 MG PO Twice daily 4 October 25, 2021 1:00am December 25, 2021 6:35pm clopidogrel 75 mg oral tablet (15 sources) P2Y12 Platelet Inhibitor Start: 10-14-2019 End: 10-21-2021 take 1 tablet by mouth once daily in the morning Clopidogrel (Plavix) 75 mg tablet Discontinued 75 MG PO Every morning September 09, 2020 12:39pm October 21, 2021 9:50am dexamethasone 6 mg oral tablet (2 sources) Corticosteroid Start: 10-25-2021 End: 12-25-2021 take 6 mg by mouth once daily Dexamethasone Discontinued 6 MG PO Daily October 25, 2021 1:00am December 25, 2021 6:36pm famotidine 20 mg oral tablet (2 sources) Histamine-2 Receptor Antagonist Start: 10-25-2021 End: 12-25-2021 take 20 mg by mouth once daily Famotidine Discontinued 20 MG PO Daily 14 October 25, 2021 1:00am December 25, 2021 6:36pm 17 ml ferumoxytol 30 mg/ml injection (1 source) Parenteral Iron Replacement Start: 07-03-2020 Ferumoxytol 510 MG/17ML as directed Intravenous Jun, Not-Taking 12 hr guaiFENesin 600 mg extended release oral tablet (2 sources) Start: 10-25-2021 End: 12-25-2021 take 2 tablets by mouth twice daily, then take 1 tablet by mouth every twelve hours Guaifenesin (Mucinex) 600 mg Tablet Extended Release 12hr Discontinued 1200 MG PO Twice daily 56 October 25, 2021 1:00am December 25, 2021 6:36pm Magnesium (8 sources) Start: 09-09-2020 End: 01-06-2024 take 400 mg by mouth once daily in the morning Magnesium Discontinued 400 MG PO Every morning 60 September 09, 2020 12:39pm January 06, 2024 11:01am Start: 09-09-2020 End: 01-06-2024 take 400 mg [...] MG PO Every morning August 29, 2020 12:00am September 09, 2020 12:40pm Start: 08-29-2020 End: [...] chloride 20 meq extended release oral tablet (6 sources) Start: 04-05-2019 End: 06-03-2020 take 20 mEq by mouth once daily Potassium Chloride Discontinued 20 MEQ PO Daily April 05, 2019 12:00am June 03, 2020 11:05am Start: 04-20-2018 End: [...] 20-Aug-2023 Active rivaroxaban 10 mg oral tablet (2 sources) Factor Xa Inhibitor Start: 10-25-2021 End: 12-25-2021 take 1 tablet by mouth once daily Rivaroxaban (Xarelto) 10 mg tablet Discontinued 10 MG PO Daily October 25, 2021 1:00am December 25, 2021 6:37pm ticagrelor 90 mg oral tablet (4 sources) Start: 04-22-2022 take 1 tablet by mouth twice daily Brilinta 90 MG Oral Tablet TAKE 1 TABLET TWICE DAILY. Quantity: 180 Refills: 3 Ordered: 22-Apr-2022 Ingrid Contreras DO Start : 22-Apr-2022 Active Start: 04-18-2022 End: 01-06-2024 take 1 tablet by mouth twice daily Ticagrelor (Brilinta) 60 mg Tablet Discontinued 90 MG PO Twice daily 270 April 18, 2022 12:00am January 06, 2024 11:02am valsartan 80 mg oral tablet (6 sources) Angiotensin 2 Receptor Bronwyn Start: 04-18-2022 End: 05-04-2024 take 80 mg by mouth once daily Valsartan Discontinued 80 MG PO Daily 30 April 18, 2022 12:00am May 04, 2024 9:54am Vitamin B Complex CAPS (2 sources) Vitamin B Comple x CAPS TAKE 1 CAPSULE Daily Quantity: 0 Refills: 0 Ordered: 30-Apr-2022 DO Active Problems Active Problems Problem Classification Problem Date Documented Date Episodic/Chronic Acute and unspecified renal failure (14 sources) Acute renal failure syndrome; Translations: [Injury of kidney] Onset: 12-03-2023 12-16-2023 Episodic Administrative/social admission (1 source) Patient encounter status; Translations: [Persons encountering health services in other specified circumstances] Onset: 12-03-2023 12-03-2023 Episodic Cardiac dysrhythmias (4 sources) Sinus tachycardia; Translations: [Tachycardia, unspecified] Onset: 01-29-2024 01-29-2024 Episodic Chronic kidney disease (15 sources) Chronic kidney disease stage 3; Translations: [Chronic kidney disease, stage 3 (moderate)] Onset: 12-02-2023 12-02-2023 Chronic Complications of surgical procedures or medical care (3 sources) Trauma and postoperative pulmonary insufficiency; Translations: [Acute postprocedural respiratory failure] 09-04-2020 Episodic Conditions associated with dizziness or vertigo (3 sources) Dizziness; Translations: [Dizziness and giddiness] 04-05-2019 Episodic Congestive heart failure; nonhypertensive (13 sources) Acute congestive heart failure; Translations: [Congestive heart failure] Onset: 12-02-2023 12-02-2023 Chronic Coronary atherosclerosis and other heart disease (20 sources) Coronary arteriosclerosis; Translations: [Preinfarction syndrome] Onset: 12-29-2022 12-02-2023 Chronic Deficiency and other anemia (1 source) Iron deficiency anemia; Translations: [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 Deficiency and other anemia (2 sources) Iron deficiency anemia due to blood loss; Translations: [Iron deficiency anemia secondary to blood loss (chronic)] Onset: 12-02-2023 12-30-2023 Chronic Deficiency and other anemia (3 sources) Anemia; Translations: [Anemia, unspecified] 06-04-2020 Episodic Deficiency and other anemia (5 sources) Iron deficiency anemia; Translations: [Iron deficiency anemia, unspecified] Onset: 01-29-2024 01-29-2024 Episodic Diabetes mellitus without complication (1 source) Blood glucose abnormal; Translations: [Other abnormal glucose] Onset: 12-02-2023 12-02-2023 Episodic Disorders of lipid metabolism (9 sources) Hyperlipidemia; Translations: [Mixed hyperlipidemia] Onset: 12-02-2023 12-02-2023 Chronic E Codes: Fall (3 sources) Fall on same level, unspecified, initial encounter; Translations: [Fall] Onset: 12-29-2022 12-25-2021 Episodic Esophageal disorders (1 source) Gastroesophageal reflux disease without esophagitis; Translations: [Gastro-esophageal reflux disease without esophagitis] Onset: 12-17-2023 12-17-2023 Chronic Essential hypertension (17 sources) Hypertensive disorder; Translations: [Essential hypertension] Onset: 12-02-2023 12-02-2023 Chronic Essential hypertension (1 source) Essential hypertension Onset: 07-22-2017 Fluid and electrolyte disorders (8 sources) Metabolic acidosis; Translations: [Metabolic acidosis] Onset: 02-13-2024 04-16-2022 Episodic Fracture of upper limb (1 source) Other intraarticular fracture of lower end of left radius, initial encounter for closed fracture; Translations: [OTH IA FX LOW LT RADUS INIT CLOS FX] Onset: 12-29-2022 Episodic Hypertension with complications and secondary hypertension (9 sources) Hypertensive emergency; Translations: [Hypertensive urgency ] 04-05-2019 Chronic Immunizations and screening for infectious disease (3 sources) Contact with and (suspected) exposure to other viral communicable diseases; Translations: [Tetanus toxoid vaccination given] Onset: 10-12-2021 Resolved: 10-12-2021 Episodic Malaise and fatigue (8 sources) Malaise; Translations: [Asthenia] 06-03-2020 Episodic Nausea and vomiting (3 sources) Nausea; Translations: [Nausea] 04-05-2019 Episodic Nonspecific chest pain (7 sources) Chest pain; Translations: [Other chest pain] Onset: 12-27-2022 Episodic Nutritional deficiencies (1 source) Iron deficiency; Translations: [Iron deficiency] Chronic Nutritional deficiencies (2 sources) Iron deficiency; Translations: [Iron deficiency] 06-04-2020 Episodic Open wounds of head; neck; and trunk (2 sources) Laceration of right eyelid; Translations: [Laceration without foreign body of right eyelid and periocular area, initial encounter] 12-25-2021 Episodic Other aftercare (3 sources) Treatment changed; Translations: [Long-term (current) use of other medications] Episodic Other aftercare (1 source) Other oysterman (current) drug therapy; Translations: [OTH SHELTER CURRENT DRUG THERAPY] Onset: 12-29-2022 Episodic Other [...] Onset: 12-03-2023 12-16-2023 Episodic Other circulatory disease (2 sources) H/O: heart failure; Translations: [Personal history of other diseases of the circulatory system] 10-21-2021 Episodic Other circulatory disease (2 sources) Peripheral vascular angioplasty status; Translations: [Peripheral vascular angioplasty status] Onset: 12-03-2023 Episodic Other connective tissue disease (4 sources) Muscle weakness; Translations: [Muscle weakness (generalized)] Onset: 02-13-2024 02-13-2024 Episodic Other lower respiratory disease (3 sources) Hypoxia; Translations: [Hypoxemia] 06-03-2020 Episodic Other lower respiratory disease (4 sources) Dyspnea; Translations: [Shortness of breath] Onset: 12-03-2023 12-16-2023 Episodic Other nervous system disorders (1 source) Neuropathy; Translations: [Idiopathic progressive neuropathy] 12-30-2023 Chronic Other nervous system disorders (1 source) Walking disability; Translations: [Difficulty in walking, not elsewhere classified] Onset: 12-17-2023 12-17-2023 Chronic Other nervous system disorders (2 sources) Chronic inflammatory demyelinating polyradiculoneuropathy ; Translations: [Chronic inflammatory demyelinating polyneuritis] Onset: 12-17-2023 12-17-2023 Chronic Other nervous system disorders (4 sources) Polyneuropathy; Translations: [Polyneuropathy, unspecified] Onset: 01-29-2024 01-29-2024 Chronic Other nervous system disorders (4 sources) Finding related to ability to move; Translations: [Other abnormalities of gait and mobility] Onset: 02-13-2024 02-13-2024 Episodic Other non-epithelial cancer of skin (5 sources) Malignant neoplasm of skin; Translations: [Basal [...] 12-03-2023 12-16-2023 Episodic Other upper respiratory disease (2 sources) Anterior epistaxis; Translations: [Epistaxis] 12-25-2021 Episodic Residual [...] above: Quit 1993; Skull and face fractures (2 sources) Closed fracture of nasal bones; Translations: [Fracture of nasal bones, initial encounter for closed fracture] 12-25-2021 Episodic Spondylosis; intervertebral disc disorders; other back problems (6 sources) Lumbosacral spondylosis without myelopathy; Translations: [Spondylosis without myelopathy or radiculopathy, lumbosacral region] Onset: 07-05-2018 03-24-2019 Chronic Superficial injury; contusion (4 sources) Contusion of left hand, initial encounter; Translations: [Contusion of left knee, initial encounter] Onset: 12-29-2022 12-25-2021 Episodic Syncope (3 sources) Near syncope; Translations: [Syncope and collapse] 04-05-2019 Episodic Unclassified (2 sources) Oth symptoms and signs involving the circ and resp systems / R09.89(ICD-9) Onset: 07-22-2017 Unclassified (1 source) Pure hypercholesterolemia, unspecified / E78.00(ICD-9) Onset: 07-22-2017 Unclassified (1 source) Personal history of nicotine dependence / Z87.891(ICD-9) Onset: 07-22-2017 Unclassified (1 source) Athscl heart disease of [place] coronary artery w/o ang pctrs / I25.10(ICD-9) Onset: 07-22-2017 Unclassified (1 source) Old myocardial infarction / I25.2(ICD-9) Onset: 07-22-2017 Unclassified (1 source) Overweight / E66.3(ICD-9) Onset: 07-22-2017 Viral infection (9 sources) COVID-19; Translations: [Pneumonia due to COVID-19 [...] aPTT Coag (PPP) [Time] 24.6 s 25.1-36.5 [facility] Comment on above: A hematocrit value g reater than 55% may lead to inaccurate results in coagulation testing. Patients having hematocrit values >55% require a special collection tube for coagulation studies. Please contact the laboratory at [phone] guided bone marrow bx/asp iron 01-06-2024 CT guided bone marrow bx/aspir [facility] [place] [address] [place] [address] CT Scan Report Signed Patient: Kusum Huerta MR#: [id number] [birth year] : 1950 Acct:[id number] Age/Sex: 73 / F ADM Date: 01/06/24 Loc: CT Room: Type: [facility] Attending Dr: Mary Espana MD Copies [...] Yaw Deluca M.D.01/06/2024 2:06 PM Dictation Location: [place] [address] Transcribed By: [facility] 01/06/24 140 Dictated By: Yaw Deluca II, MD 01/06/24 1401 Signed By: 01/06/24 140 Normal [facility] Coagulation Profileon 2023 aPTT Coag (Bld) [Time] 24.6 s Low 25.1-36.5 [facility] Comment on above: Order Comment: STAT FOR BX Result Comment: A he matocrit value greater than 55% may lead to inaccurate results in coagulation testing. Patients having hematocrit values >55% require a special collection tube for coagulation studies. Please contact the laboratory at [phone] for redraw instructions. PERFORMED BY: [place] [address] PATHOLOGIST OVAL OR CIRCULAR GLASS CUTTER CUCA VOGT M.D. Performed By: #### C BC, PLT, PP #### [address] INR Coag (PPP) [Relative time] 0.9 {INR} Normal [facility] Comment on above: Order Comment: STAT [...] By: #### C BC, PLT, PP #### [address] PT Coag (PPP) [Time] 10.4 s Normal 9.0-12.9 [facility] Comment on above: Order Comment: STAT FOR BX Result Comment: A he matocrit value greater than 55% may lead to inaccurate results in coagulation testing. Patients having hematocrit values >55% require a special collection tube for coagulation studies. Please contact the laboratory at [phone] for redraw instructions. Performed By: #### C BC, PLT, PP #### [facility] [address] [place] [address] Complete Blood Count Auto Di ffon 01-06-2024 Basophils (Bld) [#/Vol] 0.0 10*3/uL Normal 0.0-0.2 [facility] Comment on above: Order Comment: STAT FOR BX Result Comment: PERF ORMED BY: [address] [address] PATHOLOGIST OVAL OR CIRCULAR GLASS CUTTER CUCA VOGT M.D. Performed By: #### C BC, PLT, PP #### [address] Basophils/100 WBC (Bld) 0.1 % Normal . [facility] Comment on above: Order Comment: STAT FOR BX Performed By: #### C BC, PLT, PP #### [address] Eosinophils (Bld) [#/Vol] 0.0 10*3/uL Normal 0.0-0.45 [facility] Comment on above: Order Comment: STAT FOR BX Performed By: #### C BC, PLT, PP #### [address] Eosinophils/100 WBC (Bld) 0.4 % Normal . [facility] Comment on above: Order Comment: STAT FOR BX Performed By: #### C BC, PLT, PP #### [address] Erythrocyte distribution width (RBC) [Ratio] 17.3 % High 11.9-15.3 [facility] Comment on above: Order Comment: STAT FOR BX Performed By: #### C BC, PLT, PP #### [address] Hematocrit (Bld) [Volume fraction] 33.3 % Low 34.0-46.4 [facility] Comment on above: Order Comment: STAT FOR BX Performed By: #### C BC, PLT, PP #### [address] Hemoglobin (Bld) [Mass/Vol] 10.4 g/dL Low 11.8-15.4 [facility] Comment on above: Order Comment: STAT FOR BX Performed By: #### C BC, PLT, PP #### [address] Lymphocytes (Bld) [#/Vol] 0.7 10*3/uL Low 1.00-4.8 [facility] Comment on above: Order Comment: STAT FOR BX Performed By: #### C BC, PLT, PP #### [address] Lymphocytes/100 WBC (Bld) 10.7 % Normal . [facility] Comment on above: Order Comment: STAT FOR BX Performed By: #### C BC, PLT, PP #### [address] MCH (RBC) [Entitic mass] 26.6 pg Normal 24.7-34.3 [facility] Comment on above: Order Comment: STAT FOR BX Performed By: #### C BC, PLT, PP #### [address] MCV (RBC) [Entitic vol] 85.0 fL Normal 80-100 [facility] Comment on above: Order Comment: STAT FOR BX Performed By: #### C BC, PLT, PP #### [address] Mean Corpuscular HGB Conc 31.3 g/dL Low 32.0-35.0 [facility] Comment on above: Order Comment: STAT FOR BX Performed By: #### C BC, PLT, PP #### [address] Monocytes (Bld) [#/Vol] 0.7 10*3/uL Normal 0.0-0.8 [facility] Comment on above: Order Comment: STAT FOR BX Performed By: #### C BC, PLT, PP #### [address] Monocytes/100 WBC (Bld) 9.4 % Normal . [facility] Comment on above: Order Comment: STAT FOR BX Performed By: #### C BC, PLT, PP #### [address] Neutrophils (Bld) [#/Vol] 5.5 10*3/uL Normal 1.8-7.7 [facility] Comment on above: Order Comment: STAT FOR BX Performed By: #### C BC, PLT, PP #### [facility] [address] Neutrophils/100 WBC (Bld) 79.4 % Normal . [facility] Comment on above: Order Comment: STAT FOR BX Performed By: #### C BC, PLT, PP #### [facility] [address] NRBC% 0.1 /100{WBC} Normal 0-0.5 [facility] Comment on above: Order Comment: STAT FOR BX Performed By: #### C BC, PLT, PP #### [facility] [address] Platelet mean volume (Bld) [Entitic vol] 7.7 fL Normal 6.3-10.7 [facility] Comment on above: Order Comment: STAT FOR BX Performed By: #### C BC, PLT, PP #### [address] RBC (Bld) [#/Vol] 3.92 10*6/uL Normal 3.60-5.00 [facility] Comment on above: Order Comment: STAT FOR BX Performed By: #### C BC, PLT, PP #### [address] WBC (Bld) [#/Vol] 6.9 10*3/uL Normal 3.8-11.6 [facility] Comment on above: Order Comment: STAT FOR BX Performed By: #### C BC, PLT, PP #### [address] INR in Platelet poor plasma by Coagulation assayOrdered By: Mary Espana on 01-06-2024 INR Coag (PPP) [Relative time] 0.9 {INR} [facility] Comment on above: INR Therapeutic Rang e [...] Platelets (Bld) [#/Vol] 136 10*3/uL Low 150-450 [facility] Comment on above: Order Comment: STAT FOR BX Result Comment: PERF ORMED BY: [place] [address] PATHOLOGIST OVAL OR CIRCULAR GLASS CUTTER CUCA VOGT M.D. Performed By: #### C BC, PLT, PP #### [facility] [address] Platelets Auto (Bld) [#/Vol] Ordered By: Mary Espana on 01-06-2024 Platelets (Bld) [#/Vol] 136 10*3/uL 150-450 [facility] Prothrombin time (PT)Ordered By: Mary Espana on 01-06-2024 PT Coag (PPP) [Time] 10.4 s 9.0-12.9 [facility] Comment on above: A hematocrit value g reater than 55% may lead to inaccurate results in coagulation testing. Patients having hematocrit values >55% require a special collection tube for coagulation studies. Please contact the laboratory at [phone] for redraw instructions. Multiple labsOrdered By: Maureen Eckert on 11-23-2023 Posh Eyes Height or Weight NOT Doneon 08-20-2023 Adult depression screening assessment No [facility] 600 DO Work Phone: Fall risk assessment a) No falls within the last year [facility] 600 DO Work Phone: Office Visit (Cardiology)on 08-20-2023 Follow-up visit Diagnoses/Problems Assessed Mixed hyperlipidemia (272.2) (E78.2) Essential hypertension (401.9) (I10) Atherosclerosis of [place] coronary artery without angina pectoris (414.01) (I25.10) Status post angioplasty (V45.89) (Z98.62) Shortness of breath (786.05) (R06.02) Former smoker (V15.82) (Z87.891) Quit 1993 Orders Atherosclerosis of [place] coronary artery without angina pectoris, Status post [...] Former smoker Tobacco Use Screening; Status:Complete; Done: [id number] Unlinked Stop: amLODIPine Besylate 10 MG Oral [...] negative for complaint. Vitals Vital Signs Recorded: [id number] 11:08AM Heart Rate70, L Radial [id number], LUE, Sitting Poryjfsbt74, LUE, Sitting Height5 ft 3 in Height [...] LUCAS Date: 2022-12-27 15:51 Normal [facility] XR RIBS LT PA Waqar 3 [...] calcified granuloma in the right lung base. Costilla screws noted in the right humeral head. IMPRESSION: 1. No acute rib fracture identified. 2. No acute cardiopulmonary process. Electronically authenticated by: MARLON METCALF Date: 2022-12-27 15:50 Normal [facility] Tobacco Screening.on 022 Adult depression screening assessment No [facility] 250 DO Work Phone: Fall risk assessment a) No falls within the last year [facility] 250 DO Work Phone: Tobacco use status [facility] b) No [facility] 250 DO Work Phone: COVID Quick Testingon 2020 Result Positive [employer] Other Automated blood platelet cou nt (count/volume)on 03-04-2021 Platelets (Bld) [#/Vol] 249 10*3/uL 150-450 [facility] Automated blood platelet oracio n volume measurementon 03-04-2021 Platelet mean volume (Bld) [Entitic vol] 8.2 fL 6.3-10.7 [facility] Automated erythrocyte distri bution width ratioon 03-04-2021 Erythrocyte distribution width (RBC) [Ratio] 17.4 % 11.9-15.3 [facility] Automated erythrocyte mean c orpuscular hemoglobin (mass per erythrocyte)on 03-04-2021 MCH (RBC) [Entitic mass] 27.2 pg 24.7-34.3 [facility] Automated erythrocyte mean c orpuscular hemoglobin concentration measurement (mass/volon 03-04-2021 MCHC (RBC) [Mass/Vol] 32.7 g/dL 32.0-35.0 [facility] Automated erythrocyte mean c orpuscular volumeon 03-04-2021 MCV (RBC) [Entitic vol] 83.2 fL 80-100 [facility] Blood erythrocytes automated count (number/volume)on 03-04-2021 RBC (Bld) [#/Vol] 3.83 10*6/uL 3.60-5.00 [facility] Blood hemoglobin measurement (mass/volume)on 03-04-2021 Hemoglobin (Bld) [Mass/Vol] 10.4 g/dL 11.8-15.4 [facility] Blood leukocytes automated c ount (number/volume)on 03-04-2021 WBC (Bld) [#/Vol] 9.9 10*3/uL 3.8-11.6 [facility] Body fluid albumin measureme nt (mass/volume)on 03-04-2021 Albumin (Body fld) [Mass/Vol] 3.6 g/dL 3.2-5.5 [facility] Estimated glomerular filtrat ion rate (GFR) non- Americanon 03-04-2021 GFR/1.73 sq M predicted among non-blacks MDRD (S/P/Bld) [Vol rate/Area] 27 mL/Min [facility] Hematocrit [Volume Fraction] of Blood by Automated counton 03-04-2021 Hematocrit (Bld) [Volume fraction] 31.9 % 34.0-46.4 [facility] Otheron 03-04-2021 GFR/1.73 sq M.predicted MDRD (S/P/Bld) [Vol rate/Area] 33 mL/Min [facility] Comment on above: GFR estimated refere nce range: According to KDOQI guidelines, <60 ml/min/1.73m2 is sufficient to diagnose a patient with chronic kidney disease. Pharmacy Creatinine Clearance (Chem N/A [facility] Protein [Mass/volume] in Ser um or Plasmaon 03-04-2021 Protein [Mass/Vol] 6.6 g/dL 6.1-7.9 [facility] Serum globulin measurement b y calculation (mass/volume)on 03-04-2021 Globulin (S) [Mass/Vol] 3.0 g/dL [facility] Serum or plasma alanine fleming otransferase measurement without P-5'-P (enzymatic activion 03-04-2021 ALT No additional P-5'-P [Catalytic activity/Vol] 12 U/L 10-60 [facility] Serum or plasma albumin/glob ulin mass ratioon 03-04-2021 Albumin/Globulin [Mass ratio] 1.2 {ratio} [facility] Serum or plasma alkaline greyson sphatase measurement (enzymatic activity/volume)on 03-04-2021 ALP [Catalytic activity/Vol] 155 U/L 32-92 [facility] Serum or plasma aspartate am inotransferase measurement (enzymatic activity/volume)on 03-04-2021 AST [Catalytic activity/Vol] 12 U/L 10-42 [facility] Serum or plasma calcium terence urement (mass/volume)on 03-04-2021 Calcium [Mass/Vol] 8.8 mg/dL 8.2-10.2 [facility] Serum or plasma chloride oracio surement (moles/volume)on 03-04-2021 Chloride [Moles/Vol] 104 mmol/L 95-114 [facility] Serum or plasma creatinine m easurement with calculation of estimated glomerular filtron 03-04-2021 Creatinine [Mass/Vol] 1.82 mg/dL 0.44-1.03 [facility] Serum or plasma glucose terence urement (mass/volume)on 03-04-2021 Glucose [Mass/Vol] 109 mg/dL 70-100 [facility] Comment on above: ADA recommended refe rence rangeRandom Glucose Reference Range is dependent on time and content of last meal. Glucose of more than 200 mg/dL in a nonstressed, ambulatory subject supports the diagnosis of Diabetes Mellitus. Serum or plasma potassium me asurement (moles/volume)on 03-04-2021 Potassium [Moles/Vol] 5.6 mmol/L 3.5-5.1 [facility] Serum or plasma sodium measu rement (moles/volume)on 03-04-2021 Sodium [Moles/Vol] 135 mmol/L 136-146 [facility] Serum or plasma total biliru bin measurement (mass/volume)on 03-04-2021 Bilirubin [Mass/Vol] 1.0 mg/dL 0.3-1.2 [facility] Serum or plasma total carbon dioxide measurement (moles/volume)on 03-04-2021 CO2 [Moles/Vol] 23.9 mmol/L 22.0-30.0 [facility] Serum or plasma urea nitroge n measurement (mass/volume)on 03-04-2021 Urea nitrogen [Mass/Vol] 37 mg/dL 08-15 [facility] Vital Signs Date Time Vital Sign Value Performing Clinician Facility 05-04-2024 09:36-0400 Body height 157.48 cm [facility] 05-04-2024 09:36-0400 Body mass index (BMI) [Ratio] 33.5 kg/m2 [facility] 05-04-2024 09:36-0400 Body temperature 97.5 [degF] [facility] 05-04-2024 09:36-0400 Body weight 83 kg [facility] 05-04-2024 09:36-0400 Diastolic blood pressure 85 mm[Hg] [facility] 05-04-2024 09:36-0400 Heart rate 65 /min [facility] 05-04-2024 09:36-0400 Respiratory rate 16 /min [facility] 05-04-2024 09:36-0400 SaO2% (BldA) [Mass fraction] 100 % [facility] 05-04-2024 09:36-0400 Systolic blood pressure 160 mm[Hg] [facility] 02-12-2024 18:27-0400 Body mass index (BMI) [Ratio] 33.39 kg/m2 Josr Furlong DO Work Phone: [facility] [employer] [facility] 02-12-2024 18:27-0400 Body weight 85.5 kg Josr Furlong DO Work Phone: [facility] [employer] [facility] 02-12-2024 18:27-0400 Diastolic blood pressure 78 mm[Hg] Josr Furlong DO Work Phone: [facility] [employer] [facility] 02-12-2024 18:27-0400 Heart rate 76 /min Josr Furlong DO Work Phone: [facility] [employer] 02-12-2024 18:27-0400 Systolic blood pressure 138 mm[Hg] Josr Furlong DO Work Phone: [facility] [employer] [facility] 02-09-2024 12:10-0400 Body mass index (BMI) [Ratio] 33.18 kg/m2 Josr Furlong DO Work Phone: [facility] 02-09-2024 12:10-0400 Body temperature 97.7 [degF] Josr Furlong DO Work Phone: [facility] [employer] [facility] 02-09-2024 12:10-0400 Body weight 84.96 kg Josr Furlong DO Work Phone: [facility] [employer] [facility] 02-09-2024 12:10-0400 Diastolic blood pressure 66 mm[Hg] Josr Furlong DO Work Phone: [facility] [employer] [facility] 02-09-2024 12:10-0400 Heart rate 82 /min Josr Furlong DO Work Phone: [facility] [employer] [facility] 02-09-2024 12:10-0400 Respiratory rate 18 /min Josr Furlong DO Work Phone: [facility] [employer] [facility] 02-09-2024 12:10-0400 SaO2% (BldA) [Mass fraction] 99 % Josr Furlong DO Work Phone: [facility] 02-09-2024 12:10-0400 Systolic blood pressure 117 mm[Hg] Josr Furlong DO Work Phone: [facility] 01-29-2024 17:52-0500 Body height 160 cm Josr Furlong DO Work Phone: [facility] 01-29-2024 17:52-0500 Body mass index (BMI) [Ratio] 34.56 kg/m2 Josr Furlong DO Work Phone: [facility] 01-29-2024 17:52-0500 Body temperature 98.49 [degF] Josr Furlong DO Work Phone: [facility] 01-29-2024 17:52-0500 Body weight 88.5 kg Josr Furlong DO Work Phone: [facility] 01-29-2024 17:52-0500 Diastolic blood pressure 65 mm[Hg] Josr Furlong DO Work Phone: [facility] 01-29-2024 17:52-0500 Heart rate 63 /min Josr Furlong DO Work Phone: [facility] 01-29-2024 17:52-0500 Respiratory rate 18 /min Josr Furlong DO Work Phone: [facility] 01-29-2024 17:52-0500 SaO2% (BldA) [Mass fraction] 98 % Josr Furlong DO Work Phone: [facility] 01-29-2024 17:52-0500 Systolic blood pressure 133 mm[Hg] Josr Furlong DO Work Phone: [facility] [employer] [facility] 01-06-2024 11:41-0500 Diastolic blood pressure 73 mm[Hg] MD Shaikh Serna Work Phone: [facility] 01-06-2024 11:41-0500 Heart rate 92 /min MD Shaikh Serna Work Phone: [facility] 01-06-2024 11:41-0500 Respiratory rate 16 /min MD Shaikh Serna Work Phone: [facility] 01-06-2024 11:41-0500 SaO2% (BldA) [Mass fraction] 97 % MD Shaikh Serna Work Phone: [facility] 01-06-2024 11:41-0500 Systolic blood pressure 152 mm[Hg] MD Shaikh Serna Work Phone: [facility] 01-06-2024 10:00-0500 Body height 157.48 cm MD Shaikh Serna Work Phone: [facility] 01-06-2024 10:00-0500 Body weight 86.18 kg MD Shaikh eSrna Work Phone: [facility] 08-20-2023 11:08-0400 Body height 160.02 cm James Pereira Work Phone: [facility] 600 DO Work Phone: 08-20-2023 11:08-0400 Body mass index (BMI) [Ratio] Medical Reason Not Done James Pereira Work Phone: [facility] [employer] 600 DO Work Phone: 08-20-2023 11:08-0400 Diastolic blood pressure 52 mm[Hg] James Pereira Work Phone: [facility] 600 DO Work Phone: 08-20-2023 11:08-0400 Heart rate 70 /min James Pereira Work Phone: [facility] 600 DO Work Phone: 08-20-2023 11:08-0400 Systolic blood pressure 110 mm[Hg] James Pereira Work Phone: [facility] 600 DO Work Phone: 04-30-2022 10:57-0400 Body height 160.02 cm James Pereira Work Phone: [facility] 250 DO Work Phone: 04-30-2022 10:57-0400 Body mass index (BMI) [Ratio] 36.67 kg/m2 James Pereira Work Phone: [facility] 250 DO Work Phone: 04-30-2022 10:57-0400 Body surface area Derived from formula 1.96 m2 James Pereira Work Phone: [facility] 250 DO Work Phone: 04-30-2022 10:57-0400 Body weight 93.9 kg James Pereira Work Phone: [facility] 250 DO Work Phone: 04-30-2022 10:57-0400 Diastolic blood pressure 50 mm[Hg] James Pereira Work Phone: [facility] 250 DO Work Phone: 04-30-2022 10:57-0400 Heart rate 64 /min James Pereira Work Phone: [facility] 250 DO Work Phone: 04-30-2022 10:57-0400 Systolic blood pressure 120 mm[Hg] James Pereira Work Phone: [facility] 250 DO Work Phone: 04-16-2022 00:00-0400 60 1 Ingrid Contreras DO Work Phone: [facility] 250 DO Work Phone: Comment on above: [id number] 10-12-2021 14:30-0500 Body height Brian Sawyer Other [employer] Other 10-12-2021 14:30-0500 Body mass index (BMI) [Ratio] 36.61 kg/m2 Brian Sawyer Other [employer] Other 10-12-2021 14:30-0500 Body temperature 98.7 [degF] Brian Sawyer Other [employer] Other 10-12-2021 14:30-0500 Body weight 99.79 kg Brian Sawyer Other [employer] Other 10-12-2021 14:30-0500 Diastolic blood pressure 58 mm[Hg] Brian Sawyer Other [employer] Other 10-12-2021 14:30-0500 SaO2% (BldA) [Mass fraction] 92 % Brian Sawyer Other [employer] Other 10-12-2021 14:30-0500 Systolic blood pressure 94 mm[Hg] Brian Sawyer Other [employer] Other Encounters Encounter Date Encounter Type Care Provider Facility Start: 05-04-2024 End: 05-04-2024 ambulatory [facility] Work Phone: Start: 05-04-2024 End: 05-04-2024 Patient encounter procedure [facility] Work Phone: Start: 04-25-2024 End: 04-25-2024 ambulatory TRENT RAMIREZ Not Available Start: 04-19-2024 End: 04-19-2024 ambulatory SHAIKH DAPHNE Not Available Start: 03-17-2024 End: 03-17-2024 ambulatory SHAIKH DAPHNE Not Available Start: 03-02-2024 End: 03-02-2024 ambulatory [facility] Start: 02-17-2024 End: 02-17-2024 ambulatory SHAIKH DAPHNE Not Available Start: 02-12-2024 ambulatory Josr [...] 34.0 to 34.9 in adult; 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 Start: 01-29-2024 ambulatory [...] tachycardia; Polyneuropathy Start: 01-14-2024 End: 01-14-2024 ambulatory SCHAEFFER DAPHNE Not Available Start: 01-06-2024 End: 01-06-2024 ambulatory Schaeffer Daphne Facility:[facility] Start: 01-06-2024 End: 01-06-2024 Admission to same day surgery center MD Shaikh Serna Work Phone: [facility] [place] Work Phone: Start: 01-06-2024 End: 01-06-2024 ambulatory MD Shaikh Serna Work Phone: [facility] Work Phone: Start: 12-29-2023 Telephone encounter Trent Ramirez MD Work Phone: [facility] Start: 12-17-2023 End: 12-17-2023 ambulatory SHAIKH DAPHNE Not Available Start: 12-16-2023 End: 12-16-2023 ambulatory TRENT RAMIREZ Not Available Start: 12-02-2023 End: 12-02-2023 ambulatory SCHAEFFER DAPHNE Not Available Start: 11-25-2023 Orders Only Not In System Ref Prov [facility] Start: 11-19-2023 End: 11-24-2023 Emergency department patient visit JAMES PEREIRA [facility] Start: 11-12-2023 End: 11-12-2023 ambulatory ANTONY GRANT Not Available Start: 08-20-2023 Office outpatient vi sit 25 minutes James Pereira Work Phone: [facility] 600 DO Work Phone: Start: 08-20-[address] Ingrid Ibarra II Facility: Start: 12-27-2022 End: 12-27-2022 ambulatory LARA EDOUARD Facility: Start: 06-17-2022 Patient encounter procedure James Pereira Work Phone: [facility] 250 DO Work Phone: Start: 04-30-2022 Office outpatient vi sit 25 minutes James Jasso Gove Work Phone: [facility] 250 DO Work Phone: Start: 04-22-2022 Patient encounter procedure Ingrid Contreras DO Work Phone: [facility] 250 DO Work Phone: Start: 10-12-2021 End: 10-12-2021 ambulatory Brian Sawyer Other [facility] Other Start: 10-12-2021 Office outpatient vi sit 15 minutes Brian Sawyer [facility] Start: 03-04-2021 End: 03-04-2021 Patient encounter procedure James Pereira [facility] [place] Start: 07-22-2017 Ambulatory INGRID IBARRA Facil [id number] Procedures Date Procedure Procedure Detail Performing Clinician Start: 11-23-2023 MULTIPLE LABS Not In Sy stem Ref Prov Start: 11-23-1979 Total colonoscopy Willi am Ben DO Work Phone: Appendectomy James E Bristo l Work Phone: Arthroplasty of knee James Jasso Gove Work Phone: Cardiac catheterization Will rey Ben DO Work Phone: Cholecystectomy James E Any stol Work Phone: Hysterectomy Dallas E Bristo l Work Phone: Removal of thrombus Dallas E Gove Work Phone: Surgical procedure o n eye proper James E Gove Work Phone: Plan of Treatment Date Care Activity Detail Author Start: 12-25-2031 DTaP,Tdap and Td Vaccines (2 - Td or Tdap) DTaP,Tdap and Td Vaccines (2 - Td or Tdap) [facility] Start: 02-08-2025 Adult BMI Screening Adult BMI Screening [facility] Start: 01-28-2025 Adult BMI Screening Adult BMI Screening [facility] Start: 01-28-2025 Tobacco Screening Tobacco Screening [facility] Start: 01-21-2024 End: 01-21-2024 Patient encounter procedure 01/21/2024 1:50 PM EST Procedure Visit [facility] [address] [place] [id number] Antony Grant, DPM [address] [facility] [address] [place] [address] [facility] Start: 01-20-2024 End: 01-20-2024 Patient encounter procedure 01/20/2024 9:30 AM EST Office Visit [facility] [address] [place] [phone] Shaikh Serna MD [address] [place] [phone] [facility] Start: 01-14-2024 End: 01-14-2024 Patient encounter procedure 01/14/2024 11:00 AM EST Procedure Visit [facility] [address] [facility] [address] [place] [phone] [facility] Start: 01-06-2024 [facility] Start: 01-06-2024 [facility] Start: 01-06-2024 Bone marrow sampling [facility] Start: 07-24-2023 Influenza vaccination [facility] Start: 07-10-2022 FUV, Provider: Ingrid Ibarra, Status: Pen, Time: 10:50 AM FUV, Provider: Ingrid Ibarra, Status: Pen, Time: 10:50 AM [facility] 250 DO Work Phone: Start: 04-30-2022 FUV, Provider: Cristal Grant, Status: Pen, Time: 10:30 AM FUV, Provider: Cristal Grant, Status: Pen, Time: 10:30 AM [facility] 250 DO Work Phone: Start: 01-15-2022 Adult BMI Screening Adult BMI Screening [facility] Start: 07-24-2018 Pneumococcal Vaccine: 65+ Years (2 - PCV) Pneumococcal Vaccine: 65+ Years (2 - PCV) [facility] Start: 2015 Fall Risk Screening Fall Risk Screening [facility] Start: 2000 Administration of varicella zoster vaccine Zoster (Shingles) Vaccine (1 of 2) [facility] Start: 04-15-1990 Screening for malignant neoplasm of breast Mammogram [facility] Start: 1968 Adult BMI Follow Up Plan Adult BMI Follow Up Plan [facility] Start: 1962 Depression Screening Depression Screening [facility] Start: 1962 Tobacco Screening Tobacco Screening [facility] Start: 1950 Medicare Annual Wellness (AWV) Medicare Annual Wellness (AWV) [facility] Start: 1950 Screening for malignant neoplasm of colon [facility] Start: 1950 Medicare Annual Wellness Visit Medicare Annual Wellness Visit [facility] Basophils [#/volume] in Blood by Automated count [facility] Basophils/100 leukoc ytes in Blood by Automated count [facility] Eosinophils/100 leukocytes in Blood by Automated count [facility] Erythrocyte distribu tion width [Ratio] by Automated count [facility] Erythrocytes [#/volu me] in Blood [facility] Erythropoietin (EPO) [Units/volume] in Serum or Plasma [facility] Hematocrit [Volume Fraction] of Blood [facility] Hemoglobin [Mass/vol ume] in Blood [facility] Leukocytes [#/volume ] corrected for nucleated erythrocytes in Blood by Automated coun [facility] Leukocytes [#/volume ] in Blood [facility] Lymphocytes [#/volum e] in Blood by Automated count [facility] Lymphocytes/100 leukocytes in Blood by Automated count [facility] MCH [Entitic mass] b y Automated count [facility] MCHC [Mass/volume] b y Automated count [facility] MCV [Entitic volume] by Automated count [facility] Monocytes [#/volume] in Blood by Automated count [facility] Monocytes/100 leukoc ytes in Blood by Automated count [facility] Neutrophils [#/volum e] in Blood by Automated count [facility] Neutrophils/100 leukocytes in Blood by Automated count [facility] Nucleated erythrocyt es [Presence] in Blood by Automated count [facility] Patient Education [facility] Bone Marrow Aspiration or Biopsy [facility] Work Phone: Platelet mean volume [Entitic volume] in Blood by Automated count [facility] Renal function 2000 panel - Serum or Plasma [facility] US [facility] Immunizations Immunization Date Immunization Notes Care Provider Fa cility 12-25-2021 tetanus toxoid, redu zak diphtheria toxoid, and acellular pertussis vaccine, adsorbed James E Gove Work Phone: [facility] 09-11-2020 influenza virus vacc ine, unspecified formulation [place] E Gove Work Phone: [facility] DO Work Phone: 09-08-2020 Fluzone QIV High-Dos e 65YR+ [facility] 09-08-2020 influenza virus vacc ine, unspecified formulation Not Ref Prov [facility] 10-14-2019 influenza, high dose seasonal, preservative-free [facility] 07-24-2017 pneumococcal polysaccharide vaccine, 23 valent Dallas E Gove Work Phone: [facility] DO Work Phone: 08-28-2015 influenza, high dose seasonal, preservative-free Dallas E Gove Work Phone: [facility] DO Work Phone: influenza virus vacc ine, unspecified formulation Dallas E Gove Work Phone: [facility] DO Work Phone: Comment on above: Aug 20122012 Payers Date Payer Category Payer Self-pay [id number] 2023 Medicare [id number] 2023 Private Health Insurance [id number] 1959 Private Health Insurance [id number] 1950 Unknown [id number] 1950 Unknown [id number] [id number] 1950 Unknown [id number] 2.16.840.1.618112.3.579.2.1259 1950 Unknown [id number] 2.16.840.1.781502.3.579.2.1259 1950 Unknown [id number] 2.16.840.1.689517.3.579.2.1259 1950 Unknown [id number] 2.16.840.1.709461.3.579.2.1259 1950 Unknown [id number] 2.16.840.1.263760.3.579.2.593 1950 Unknown [id number] 2.16.840.1.132934.3.579.2.356 1950 Unknown [id number] 2.16.840.1.673202.3.579.2.1286 1950 Unknown [id number] 2.16.840.1.077113.3.579.2.1244 1950 Unknown [id number] 2.16.840.1.438171.3.579.2.1259 1950 Unknown [id number] 2.16.840.1.777068.3.579.2.1259 1950 Unknown [id number] 2.16.840.1.985345.3.579.2.1259 1950 Unknown [id number] 2.16.840.1.083283.3.579.2.1259 Medicare [id number] Private Health Insurance [id number] Private Health Insurance [employer] [facility] PFFS [id number] Unknown [employer] Unknown [id number] Social History Date Type Detail Facility Start: 10-02-2020 End: 05-04-2024 Tobacco smoking status NHIS Ex-smoker (finding) [facility] [employer] Work Phone: Start: 1950 Sex Assigned At Female F [facility] Start: 12-18-2020 End: 01-15-2021 No illicit drug use No illicit drug use [place] [address] DO Work Phone: Comment on above: Quit 1993; 4 cups tea daily; Start: 12-18-2020 End: 01-15-2021 Sex Assigned At [facility] Other History of tobacco use Current smoker [facility] Start: 07-05-2018 End: 12-02-2023 Tobacco use and exposure Smokeless tobacco non-user [facility] Start: 01-15-2021 End: 01-29-2024 Alcohol intake Current non-drinker of alcohol (finding) [facility] Housing Instability Unknown [facility] Start: 1950 End: 1950 Sex Assigned At Not on file [facility] [employer] Start: 12-02-2023 Tobacco smoking stat us VAIS Never smoked tobacco [facility] History of tobacco use Passive smoker [facility] Start: 12-17-2023 Alcohol intake Lifetime non-d rony (finding) [facility] Start: 11-12-2023 Alcohol Comment caffeine intak e: 1-2 cups per day (pepsi, ice tea) [facility] Medical Equipment Procedure Code Equipment Code Equipment Original Text Equipment Identifier Dates FDA Start: 10-13-2019 [id number] FDA Start: 10-13-2019 [id number] FDA Start: 10-13-2019 CL CLOSURE DEVIC E ANGIOSEAL 6F FDA Start: 10-13-2019 [id number] FDA Start: 10-13-2019 CL CLOSURE DEVIC E ANGIOSEAL 6F FDA Start: 10-13-2019 Goals Date Patient Goal Desired Activity /State Clinical Notes 10-12-2021 to 02-12-2024 Josr Leon, DO - 02/12/2024 11:59 PM EDTJosr Leon, DO - 02/09/2024 11:59 PM EDKelly Leon, DO - 01/29/2024 5:52 PM ESTTelephone Encounter - Christina Ludwig - 12/29/2023 3:01 PM EST Note Date & Type Note Facility 02-12-2024 History of Present illness Narrative Patient Name: Kusum Huerta Date of : 1950 Date of Service: 02/12/2024 Facility: [facility] Type of Visit: Skilled Visit Subjective Kusum Huerta is a 73 y.o. female seen today at [facility] facility for No chief complaint on file. [...] have any abdominal pain. She sees a pyridine recovery operator for her anemia. She said she has [...] Thursday to get in and also her pyridine recovery operator. I ordered a CBC for her to get on Thursday. She is to go to the emergency room if she has any dizziness, lightheadedness or shortness a breath or other problems. She agrees to do so. We will plan on discharge tomorrow. She has done well with therapy. ELECTRONICALLY SIGNED BY: Josr Leon DO documented in this encounter [facility] 02-09-2024 History of Present illness Narrative Patient Name: Kusum Huerta Date of : 1950 Date of Service: 02/09/2024 Facility: [facility] Type of Visit: Skilled Visit Subjective Kusum Huerta is a 73 y.o. female seen today at retirement facility for therapy visit. Kusum is in [...] unspecified HF chronicity, unspecified heart failure type ([facility]) 3. Rhinovirus 4. Primary hypertension 5. Anemia associated with chronic renal failure 6. Hyperkalemia 7. Muscle weakness (generalized) 8. Other abnormalities of gait and mobility 9. Class 1 obesity due to excess calories with serious comorbidity and body mass index (BMI) of 34.0 to 34.9 in adult 10. 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 Continue therapy to reach maximum improvement. Possible discharge to home this weekend. Continue other orders as directed. ELECTRONICALLY SIGNED BY: Josr Leon DO documented in this encounter [facility] 01-29-2024 History of Present illness Narrative Patient Name: Kusum Huerta Date of : 1950 Date of Service: 01/29/2024 Facility: [facility] Type of Visit: Admission H&P Subjective Kusum Huerta is a 73 y.o. female seen today at retirement facility for admission H&P. Kusum presents to [facility] from [facility] where she was admitted for adult [...] neuropathy. 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, Right cheek Chronic back pain HTN (hypertension) OK (myocardial infarction) ([facility] 2013 1 stent Obesity Past Surgical History: Procedure Laterality Date APPENDECTOMY CAROTID STENT r/t 1 collapsed 09/2019 CHOLECYSTECTOMY HYSTERECTOMY INJECTION MEDIAL BRANCH NERVE BLOCK: left L45 51 Left 02/25/2019 Performed by Ingrid Beckman MD at [facility] INJECTION MEDIAL BRANCH NERVE BLOCK: left L45 51 Left 12/31/2018 Performed by Ingrid Beckman MD at [facility] INJECTION MEDIAL BRANCH NERVE BLOCK: RIGHT [id number] Right 08/27/2018 Performed by Ingrid Beckman MD at [facility] INJECTION SI JOINT Left 08/12/2019 Performed by Ingrid Beckman MD at [facility] INJECTION SI JOINT Left SI Joint Left 06/15/2020 Performed by Ingrid Beckman MD at [facility] RADIO FREQUENCY ABLATION: left L45 51 Left 04/15/2019 Performed by Ingrid Beckman MD at [facility] RADIO FREQUENCY ABLATION: right L45 [id number] Right 05/02/2019 Performed by Ingrid Beckman MD at [facility] RIGHT L3/4, 4/5, 5/1 MBB Right 07/23/2018 Performed by Ingrid Beckman MD at [facility] TOTAL KNEE ARTHROPLASTY Left No family history [...] kg/m Physical Exam Exam conducted with a elder counselor present (granddaughter present). Constitutional: General: She is [...] be discharged home. Full code. Will follow. UTILITY WORKER DRIVER will see next week in my absence. ELECTRONICALLY SIGNED BY: Josr Leon DO documented in this encounter [facility] 12-30-2023 Telephone encounter Note I called patient [...] rx. Please advise. documented in this encounter [facility] 12-29-2023 Telephone encounter Note Called patient to reschedule EMG tomorrow due to no tech in office. Patient states that she has four days left of steroid and has no more refill. Wanted to let Dr. Ramirez know and wasn't sure if she needed another rx. Please advise. [facility] 12-27-2022 Note PROCEDURE: XR HAND L [...] RODERICK ESTRELLA Date: 2022-12-27 15:58 [facility] 12-27-2022 Note PROCEDURE: XR HAND L [...] by: RODERICK ESTRELLA Date: 2022-12-27 15:58 [facility] 10-12-2021 Evaluation note Encounter Date Diagnosis [...] Patient care instructions given in writting by [facility] Care At Home document. 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 documented [facility] noteNo assessment information available[facility] Work Phone: Evaluation note* Diagnosis Acute renal failure superimposed on stage 4 chronic kidney disease, unspecified acute renal failure type (CMS-HCC)- Primary Congestive heart failure, unspecified HF chronicity, unspecified heart failure type ([facility]) Primary hypertension Unspecified essential hypertension Rhinovirus Rhinovirus [...] idiopathic peripheral neuropathy [facility] Diagnosis Acute renal failure superimposed on stage 4 chronic kidney disease, unspecified acute renal failure type ([facility])- Primary Congestive heart failure, unspecified HF chronicity, unspecified heart failure type ([facility]) Rhinovirus Rhinovirus infection in conditions classified elsewhere and of unspecified site Primary hypertension Unspecified essential hypertension Anemia associated with chronic renal failure Anemia in chronic kidney disease Hyperkalemia Hyperpotassemia Muscle weakness (generalized) Other abnormalities of gait and mobility Class 1 obesity due to excess calories with serious comorbidity and body mass index (BMI) of 34.0 to 34.9 in adult 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 documented [facility] Diagnosis Acute renal failure superimposed on stage 4 chronic kidney disease, unspecified acute renal failure type ([facility])- Primary Congestive heart failure, unspecified HF chronicity, unspecified heart failure type ([facility]) Anemia associated with chronic renal failure Anemia in chronic kidney disease Hyperkalemia Hyperpotassemia Other abnormalities of gait and mobility Muscle weakness (generalized) documented [facility]* Diagnosis Onset Date Resolution Status Anemia of renal disease acut e Chronic kidney disease, stage 3b acute Hypertensive nephropathy acu te [facility] Work Phone: History general Narrative - Reported* Type Description Date Medical History hypertension Medical History chronic kidney disease stage 3 Surgical History gall bladder Surgical History appendectomy Surgical History knee replacement, left Surgical History HEART CATH WITH STENT PLACEMENT X1 Hospitalization History see above Hospitalization History URINARY TRACT INFECTION 05/2020 Hospitalization History BLOOD PRESSURE ISSUES [facility] Other History of Present illness Narrative* The [...] medication regimen. She denies medication side effects. [facility] Work Phone: History of Present [...] diet and weight loss were again advocated. [facility] 600 DO Work Phone: InstructionsNot on filedocumented in this encounter [facility] System[facility]ructionsNot on filedocumented in this encounter [facility]Not on filedocumented in this encounter [facility] SystemInstructionsNot on filedocumented in this encounter [facility] Summary Purpose Family History Relationship Condition [...] Chief Complaint See order Chief Complaint Anemia Chief Complaint RENAL CKD 4 Reason for Visit Anemia of renal dise ase Chronic kidney disease, stage 3b Hypertensive nephropathy Assessments No Assessments Information Available Chief Complaint * Seem to be doing good * KUSUM HUERTA is being seen for follow-up of a hospitalization for chest pain. * Patient was recently hospitalized at [facility]. The patient was seen in Cardiology consult with subsequent cardiovascular management by [facility]. Hospitalization records have been reviewed. * Reason for Cardiology Consultation: ACS * Consulting Reservoir Caretaker: Dr. Contreras * Cardiovascular testing: cardiac cath [...] section and content) DATE CREATED AUTHOR 05/19/2018 [facility] DATE CREATED AUTHOR AUTHOR'S ORGANIZ ATION 12/29/2022 [facility] DATE CREATED AUTHOR AUTHOR'S ORGANIZ ATION 08/28/2023 [employer] DATE CREATED AUTHOR AUTHOR'S ORGANIZ ATION 10/07/2023 [facility] DATE CREATED AUTHOR AUTHOR'S ORGANIZ ATION 11/24/2023 [facility] DATE CREATED AUTHOR AUTHOR'S ORGANIZ ATION 01/07/2024 [facility] DATE CREATED AUTHOR AUTHOR'S ORGANIZ ATION 03/10/2024 [facility] DATE CREATED AUTHOR AUTHOR'S ORGANIZ ATION 04/25/2024 [facility] dical Specialists EPIC REASON FOR VISIT (unrecogniz ed section and content) #13 NOT VACCINATED, NO POS C OVID EXP, COUGH, CONGESTION, FEVER Care Teams (unrecognized sec tion and content) Police Chief Relationship Specialty Start Date End Date James Pereira DO [address] [place] [address] PCP - General 06/30/18 Police Chief Relationship Specialty Start Date End Date Shaikh Serna MD [address] [place] [address] PCP - General Internal Medicine 12/17/23 Team Status: Active Member Role Status Dates Shaikh Daphne MD Primary Care Provider Active Team Status: Inactive Member Role Status Mary Espana MD Attending Provider Active St art: January 06, 2024 End: January 06, 2024 Shaikh Daphne MD Primary Care Provider Active Start: January 06, 2024 End: January 06, 2024 Police Chief Relationship Specialty Start Date End Date James Pereira DO [address] [place] [address] PCP - General 06/30/18 Police Chief Relationship Specialty Start Date End Date James Pereira DO [address] [place] [address] PCP - General 06/30/18 Police Chief Relationship Specialty Start Date End Date James Pereira DO [address] [place] [address] PCP - General 06/30/18 Team Status: Inactive Member Role Status Dates Shaikh Daphne MD Primary Care Provider Active Start: May 04, 2024 End: May 04, 2024 Elayne Stoddard MD Attending Provider Active Star t: May 04, 2024 End: May 04, 2024 Goals (unrecognized section and content) Goals [...] BE BASED ON THE PRIMARY CLINICAL RECORDS. [employer] provides no warranty or guarantee of the accuracy or completeness of information in this document.
--- NOTE | 2024-05-16 14:20 | ECG_ITS ---
[facility] Test Date: 2024-05-16 Pat Name: BELLE JEONG Department: Room: - Gender: Female Roastmaster: : 1950 Requested By: SHAIKH OTILIA Order Number: [id number] Reading MD: KEERTHI WALTER Measurements Intervals [place] Rate: 103 P: 50 WI: 154 QRS: -6 QRSD: 82 T: 78 QT: 336 QTc: 396 Interpretive Statements 1120 Sinus tachycardia 3634 Inferior myocardial infarction, age undetermined [address] depression 9150 abnormal ECG Electronically Signed On 05-16-2024 23:05:22 EDT by KEERTHI WALTER
--- NOTE | 2024-05-16 14:20 | XR_ITS ---
The [address] [address] Patient Name: BELLE JEONG MRN: [id number] date: 1950 Sex: F Assigned Patient Location: ER Current Patient Location: ER Accession/Order Number: [id number] Exam Date: 05/16/2024 14:56 Report Date: 05/16/2024 15:16 At the request of: ROXY EDOUARD Procedure: XR chest 1V EXAMINATION: XR chest 1V HISTORY: Chest pain COMPARISON: 02/21/2024 TECHNIQUE: AP portable FINDINGS: LUNGS: No significant pulmonary parenchymal abnormalities. Scattered pulmonary nodules. Size and density suggests granulomas, stable VASCULATURE: No increased pulmonary vasculature. PLEURA: No pneumothorax, effusion, or pleural thickening. CARDIAC: No cardiomegaly or cardiac silhouette abnormality. MEDIASTINUM: No visible mass or adenopathy. Aortic atherosclerosis BONES: No fracture or visible bone lesion. OTHER: Negative. XR/XR chest 1V IMPRESSION: No acute cardiopulmonary process Electronically authenticated by: JANINE LY Date: 05/16/2024 15:16
--- NOTE | 2024-05-16 14:20 | ED.CHESTPAI1 ---
HPI - Chest Pain General Chief Complaint: Chest Pain Stated Complaint: CHEST PAIN Time Seen by Provider: 05/16/24 14:16 Source: patient Mode of arrival: ambulance Limitations: no limitations History of Present Illness HPI narrative: 74 year old female presents to the ED for mid chest pain. Onset was approx 1 hour ago while watching television. Denies fever, chills, MCINTOSH, dizziness. Denies cough, SOB, abd pain. 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 She was given 4 mg asa and 3 nitro per EMS with improvement in her pain. She takes Eliquis. Rates her pain 12/02 at this time. She has hx COPD, PA, CHF, CKD. 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 Related Data Home Medications ?Medication ?Instructions ?Recorded ?Confirmed metoprolol tartrate 25 mg tablet 25 mg PO Q12H 08/15/23 05/16/24 amlodipine 5 mg tablet 5 mg PO DAILY 11/18/23 05/16/24 albuterol sulfate 90 mcg/actuation 2 puff inhalation Q4H PRN 12/12/23 04/26/24 aerosol inhaler shortness of breath or wheezing immune glob,gamma (IgG) 10 5 g IV Q21D 02/21/24 04/26/24 %-gly-IgA over 50 mcg/mL injection solution (Gammagard Liquid) tizanidine 4 mg tablet 4 mg PO Q8H PRN muscle spasticity 02/21/24 05/16/24 buprenorphine 8 mg-naloxone 2 mg 1 film sublingual .QD 02/22/24 05/16/24 sublingual film apixaban 2.5 mg tablet (Eliquis) 2.5 mg PO BID 05/16/24 05/16/24 furosemide 20 mg tablet 20 mg PO DAILY 05/16/24 05/16/24 nitroglycerin 0.4 mg sublingual 0.4 mg sublingual Q5M PRN chest 05/16/24 05/16/24 tablet pain pregabalin 75 mg capsule 75 mg PO BID 05/16/24 05/16/24 spironolactone 25 mg tablet 25 mg PO DAILY 05/16/24 05/16/24 valsartan 80 mg tablet 80 mg PO DAILY 05/16/24 05/16/24 Previous Rx's ?Medication ?Instructions ?Recorded ferrous sulfate 325 mg (65 mg 325 mg PO DAILY 30 days #30 tabs 08/18/23 iron) tablet (Iron (ferrous sulfate)) gabapentin 100 mg capsule 100 mg PO TID #90 caps 11/23/23 buprenorphine 8 mg-naloxone 2 mg 1 tab sublingual BID #60 tabs 01/28/24 sublingual tablet Allergies Allergy/AdvReac Type Severity Reaction Status Date / Time No Known Drug Allergies Allergy Verified 05/16/24 14:08 Review of Systems ROS Constitutional Denies: fever or chills Ears, nose, mouth, and throat Denies: throat pain or neck pain Cardiovascular Reports: chest pain; Denies: palpitations or edema Respiratory Denies: shortness of breath or cough Gastrointestinal Denies: abdominal pain, nausea or vomiting Musculoskeletal Denies: neck pain [facility] Medical History (Updated 05/16/24 @ 15:48 by Teresa Cisneros) Dehydration ?E86.0 - Dehydration (ICD-10) Chest pain ?R07.9 - Chest pain, unspecified (ICD-10) Acute abdomen ?R10.0 - Acute abdomen (ICD-10) Adult failure to thrive ?R62.7 - Adult failure to thrive (ICD-10) Acute kidney injury superimposed on chronic kidney disease ?N17.9 - Acute kidney failure, unspecified (ICD-10) ?N18.9 - Chronic kidney disease, unspecified (ICD-10) Elevated d-dimer ?R79.89 - Other specified abnormal findings of blood chemistry (ICD-10) Chronic low back pain ?M54.50 - Low back pain, unspecified (ICD-10) ?G89.29 - Other chronic pain (ICD-10) Rhinovirus infection ?B34.8 - Other viral infections of unspecified site (ICD-10) Enterovirus infection ?B34.1 - Enterovirus infection, unspecified (ICD-10) Generalized weakness ?R53.1 - Weakness (ICD-10) Fall from chair ?W07.XXXA - Fall from chair, initial encounter (ICD-10) Lumbar degenerative disc disease ?M51.36 - Other intervertebral disc degeneration, lumbar region (ICD-10) Stage 3a chronic kidney disease (CKD) ?N18.31 - Chronic kidney disease, stage 3a (ICD-10) Opioid use disorder in remission ?F11.91 - Opioid use, unspecified, in remission (ICD-10) Acute on chronic diastolic heart failure ?I50.33 - Acute on chronic diastolic (congestive) heart failure (ICD-10) Hypoxia ?R09.02 - Hypoxemia (ICD-10) COPD (chronic obstructive pulmonary disease) ?J44.9 - Chronic obstructive pulmonary disease, unspecified (ICD-10) Iron deficiency anemia ?D50.9 - Iron deficiency anemia, unspecified (ICD-10) CAD (coronary atherosclerotic disease) ?I25.10 - Atherosclerotic heart disease of [place] coronary artery without angina pectoris (ICD-10) Hypertension ?I10 - Essential (primary) hypertension (ICD-10) Neuropathy ?G62.9 - Polyneuropathy, unspecified (ICD-10) Anemia requiring transfusions ?D64.9 - Anemia, unspecified (ICD-10) Acute on chronic congestive heart failure ?I50.9 - Heart failure, unspecified (ICD-10) CKD (chronic kidney disease) stage 3, GFR 30-59 ml/min ?N18.30 - Chronic kidney disease, stage 3 unspecified (ICD-10) Chronic respiratory failure with hypoxia ?J96.11 - Chronic respiratory failure with hypoxia (ICD-10) Melanoma ?C43.9 - Malignant melanoma of skin, unspecified (ICD-10) History of illicit drug use ?F19.91 - Other psychoactive substance use, unspecified, in remission (ICD-10) Kidney disease ?N28.9 - Disorder of kidney and ureter, unspecified (ICD-10) CHF (congestive heart failure) ?I50.9 - Heart failure, unspecified (ICD-10) Heart attack ?I21.9 - Acute myocardial infarction, unspecified (ICD-10) Anemia ?D64.9 - Anemia, unspecified (ICD-10) Anemia ?D64.9 - Anemia, unspecified (ICD-10) CHF (congestive heart failure) ?I50.9 - Heart failure, unspecified (ICD-10) Surgical History H/O: hysterectomy ?Z90.710 - Acquired absence of both cervix and uterus (ICD-10) History of cholecystectomy ?Z90.49 - Acquired absence of other specified parts of digestive tract (ICD-10) History of total left knee replacement ?Z96.652 - Presence of left artificial knee joint (ICD-10) Hx of appendectomy ?Z90.49 - Acquired absence of other specified parts of digestive tract (ICD-10) History of heart artery stent ?Z95.5 - Presence of coronary angioplasty implant and graft (ICD-10) Family History Father Family history of CHF (congestive heart failure) Family history of diabetes mellitus Family history of hypertension Sister Family history of myocardial infarction Family history of hypertension Mother Family history of COPD (chronic obstructive pulmonary disease) Family history of hypertension Daughter Family history of diabetes mellitus Social History Within the past year, how often did you have a drink containing alcohol: never Within the past year, how many standard drinks containing alcohol did you have on a typical day: 1 or 2 Within the past year, how often did you have six or more drinks on one occasion: never Total score: 0 Score interpretation: A score less than 3 is consistent with normal alcohol consumption. Smoking status: Former smoker Non-prescribed substance use: former substance user, amphetamines/methamphetamines and opiods/painkillers Non-prescribed substance use details: states has been clean for 6 months Previous occupational history: Retired Known occupational exposures/hazards: No Highest level of school completed/degree received: 11th grade Are you now , , , , never or living with a partner: In a typical week, how many times do you talk on the telephone with family, friends, or neighbors: 3 or more times per week How often do you get together with friends or relatives: 3 or more times per week How often do you attend moravian or amish services: never Do you belong to any clubs or organizations such as moravian groups unions, fraternal or athletic groups, or school groups: no Total score: 1 Score interpretation: A score of less than or equal to 1 indicates the most socially isolated. Little interest or pleasure in doing things: not at all Feeling down, depressed, or hopeless: not at all Feel stressed/tense/nervous/anxious/difficulty sleeping: not at all Gender Identity: female Exam Constitutional Vital Signs, click to edit/add: Last Vital Signs Temp 98.4 F 05/16/24 14:05 Pulse 88 05/16/24 16:04 Resp 18 05/16/24 16:04 BP 184/90 H 05/16/24 16:04 Pulse Ox 98 05/16/24 16:04 O2 Del Method Room Air 05/16/24 16:04 Common normals: no apparent distress and oriented x3 General appearance: cooperative HENMT Mouth: oral and palatal mucosa normal and lip normal Eye Common normals: conjunctivae normal and no scleral icterus Neck & C-Spine Common normals: supple Chest Chest: symmetrical chest wall rise Respiratory Common normals: normal respiratory effort and clear to auscultation bilaterally Cardio Common normals: regular rate and regular rhythm Extremity Common normals: normal capillary refill and no pedal edema Neuro Common normals: oriented x3 and moves all extremities Sensorium/orientation: awake and alert Course Vital Signs Vital signs: Vital Signs Temperature 98.4 F 05/16/24 14:05 Pulse Rate 106 H 05/16/24 14:05 Respiratory Rate 24 H 05/16/24 14:05 Blood Pressure 165/89 H 05/16/24 14:05 Pulse Oximetry 96 05/16/24 14:05 Oxygen Delivery Method Room Air 05/16/24 14:05 Temperature 98.4 F 05/16/24 14:05 Pulse Rate 88 05/16/24 16:04 Respiratory Rate 18 05/16/24 16:04 Blood Pressure 184/90 H 05/16/24 16:04 Pulse Oximetry 98 05/16/24 16:04 Oxygen Delivery Method Room Air 05/16/24 16:04 MDM - Chest Pain MDM Narrative Medical decision making narrative: Initial troponin was 129.1. She was given 324 mg asa and nitro per EMS. She will need to be transferred for further evaluation and treatment by cardiology. Her records section supervisor is at [facility]. The patient is in agreement with the transfer. I spoke with Dr. Contreras for cardiology; he accepted the patient for transfer to [facility]. I also spoke with the hospitalist Dr. Chan who accepted the patient for transfer. Medical Records Data Attestation: I reviewed the patient's medical records. Lab Data Attestation: I reviewed the patient's lab results. Labs: Lab Results 05/16/24 Range/Units 14:15 WBC 4.7 (4.0-11.0) 10^3/uL RBC 4.00 L (4.20-5.40) 10^6/uL Hgb 10.2 L (12.0-16.0) g/dL Hct 34.9 L (36.0-48.0) % MCV 87.3 (81.0-99.0) fL MCH 25.5 L (26.7-34.0) pg MCHC 29.2 L (29.9-35.2) g/dL RDW 18.7 H (11.0-15.0) % Plt Count 245 (150-450) 10^3/uL MPV 10.4 (9.5-13.5) fL Neut % (Auto) 40.8 L (43.0-75.0) % Lymph % (Auto) 46.5 (20.5-60.0) % [place] % (Auto) 10.4 (1.7-12.0) % Eos % (Auto) 0.6 L (0.9-7.0) % Baso % (Auto) 1.5 (0.2-2.0) % Neut # (Auto) 1.9 (1.4-6.5) 10^3/uL Lymph # (Auto) 2.2 (1.2-3.8) 10^3/uL [place] # (Auto) 0.5 (0.3-0.8) 10^3/uL Eos # (Auto) 0.0 (0.0-0.7) 10^3/uL Baso # (Auto) 0.1 (0.0-0.1) 10^3/uL Abs Immat Gran (auto) 0.01 (0.00-0.03) 10^3/uL Imm/Tot Granulo (auto) 0.2 (0.0-0.5) % PT 11.2 (9.0-11.6) sec INR 1.06 APTT 28.9 (22.3-36.2) sec Sodium 140 (136-145) mmol/L Potassium 4.3 (3.5-5.1) mmol/L Chloride 108 H (98-107) mmol/L Carbon Dioxide 16.9 L (21.0-32.0) mmol/L Anion Gap 19.4 BUN 53.0 H (7.0-18.0) mg/dL Creatinine 2.45 H (0.55-1.02) mg/dL Est GFR ( Amer) 23 L (>=60) Est GFR (Non-Af Amer) 19 L (>=60) BUN/Creatinine Ratio 21.6 Glucose 105 (74-106) mg/dL Calcium 8.7 (8.5-10.1) mg/dL Total Bilirubin 1.1 H (0.2-1.0) mg/dL AST 27 (15-37) U/L ALT 24 (14-59) U/L Alkaline Phosphatase 96 (46-116) U/L Troponin I High Sens 129.1 H* (4.0-51.3) pg/mL Total Protein 8.7 H (6.4-8.2) g/dL Albumin 3.6 (3.4-5.0) g/dL Globulin 5.1 g/dL Albumin/Globulin Ratio 0.7 Imaging Data Chest x-ray: Attestation: I have reviewed the pertinent imaging results. Radiologist's impression: ITS Impressions Chest X-Ray 05/16/24 14:20 IMPRESSION: No acute cardiopulmonary process Electronically authenticated by: JANINE LY Date: 05/16/2024 15:16 ECG Data Attestation: ?I have reviewed the pertinent ECG results. (EKG was reviewed by the attending physician. It showed sinus tachycardia at a rate of 103 bpm. QTc 396 ms. ) Interpretation: Measurements Intervals [place] Rate: 103 P: 50 OR: 154 QRS: -6 QRSD: 82 T: 78 QT: 336 QTc: 396 Interpretive Statements 1120 Sinus tachycardia 3634 Inferior myocardial infarction, age undetermined [address] depression 9150 abnormal ECG No previous ECG available for comparison Heart Score History: Slightly/Non-Suspicious ECG: NS Repolarization Age: >65 years Risk Factors: >3 Risk Factors/ HX of CAD:2 Troponin: >3X Normal Limit Total Heart Score Recommendations & Risks:: 7 Discharge Plan Discharge Chief Complaint: Chest Pain Clinical Impression: Chest pain, Elevated troponin Patient Disposition: [facility] Time of Disposition Decision: 16:20 Discharge Location: [facility] Condition: Good Mode of Transportation: EMS
[2024-05-16 14:32] LABS: Basophils Absolute Auto 0.1 10^3/uL (0.0-0.1); Basophils Percent Auto 1.5 % (0.2-2.0); Eosinophils Percent Auto 0.6 % (0.9-7.0); Hematocrit 34.9 % (36.0-48.0); Hemoglobin 10.2 g/dL (12.0-16.0); Immature Granulocytes Abs Auto 0.01 10^3/uL (0.00-0.03); Immature Granulocytes Pct Auto 0.2 % (0.0-0.5); Lymphocytes Absolute Auto 2.2 10^3/uL (1.2-3.8); Lymphocytes Percent Auto 46.5 % (20.5-60.0); Mean Corpuscular HGB Conc 29.2 g/dL (29.9-35.2); Mean Corpuscular Hemoglobin 25.5 pg (26.7-34.0); Mean Corpuscular Volume 87.3 fL (81.0-99.0); Mean Platelet Volume 10.4 fL (9.5-13.5); Monocytes Absolute Auto 0.5 10^3/uL (0.3-0.8); Monocytes Percent Auto 10.4 % (1.7-12.0); Neutrophils Absolute Auto 1.9 10^3/uL (1.4-6.5); Neutrophils Percent Auto 40.8 % (43.0-75.0); Platelet Count 245 10^3/uL (150-450); Red Cell Distribution Width 18.7 % (11.0-15.0); White Blood Count 4.7 10^3/uL (4.0-11.0)
[2024-05-16 14:51] LABS: Alanine Aminotransferase 24 U/L (14-59); Albumin Globulin Ratio 0.7; Albumin Level 3.6 g/dL (3.4-5.0); Alkaline Phosphatase 96 U/L (46-116); Anion Gap 19.4; Aspartate Amino Transferase 27 U/L (15-37); BUN Creatinine Ratio 21.6; Bilirubin Total 1.1 mg/dL (0.2-1.0); Calcium 8.7 mg/dL (8.5-10.1); Carbon Dioxide 16.9 mmol/L (21.0-32.0); Chloride 108 mmol/L (98-107); Estimated GFR (African America 23 (>=60); Estimated GFR (Non-African Ame 19 (>=60); Globulin 5.1 g/dL; Glucose 105 mg/dL (74-106); Potassium 4.3 mmol/L (3.5-5.1); Sodium 140 mmol/L (136-145); Total Protein 8.7 g/dL (6.4-8.2)
[2024-05-16 14:58] LABS: INR 1.06; Partial Thromboplastin Time 28.9 sec (22.3-36.2); Prothrombin Time 11.2 sec (9.0-11.6)
[2024-05-16 15:04] LABS: Troponin I High Sensitivity 129.1 pg/mL (4.0-51.3)
[2024-05-16] MEDS: ONDANSETRON PF 4 MG/2 ML VIAL IV ×2 (15:21→15:54)
[2024-05-16] MEDS: MORPHINE SULFATE 4 MG/ML VIAL IV (15:21)
[2024-05-16 16:04] VITALS: BP 184/90; PULSE 88; O2SAT 98
[2024-05-16] MEDS: MORPHINE SULFATE 2 MG/ML SYRINGE IV (18:07)
[2024-05-16 18:30] VITALS: BP 190/90; PULSE 84; O2SAT 98
[2024-05-16 19:29] LABS: Troponin I High Sensitivity 126.2 pg/mL (4.0-51.3)
[2024-05-16 19:36] VITALS: BP 174/83; PULSE 87; TEMP 37.4; O2SAT 95
[2024-05-16] MEDS: NITROGLYCERIN 0.1 MG/HR PATCH.TD24 1 EACH TD (19:44)
== END 2024-05-16 19:49 | disposition short-term general hospital (02) ==
PROVIDERS: Nurse Practitioner Family; Emergency Provider Emergency Medicine; PCP Internal Medicine
DX: R07.9 Chest pain, unspecified (principal); R79.89 Other specified abnormal findings of blood chemistry; I25.2 Old myocardial infarction; Z95.5 Presence of coronary angioplasty implant and graft; Z79.01 Long term (current) use of anticoagulants; J44.9 Chronic obstructive pulmonary disease, unspecified; I50.9 Heart failure, unspecified; N18.9 Chronic kidney disease, unspecified; Z87.891 Personal history of nicotine dependence
CPT/HCPCS: 36415; 71045; 80053; 84484; 85025; 85610; 85730; 93005; 96374; 96375; 96376; 99285; J2270; J2405

== ENCOUNTER 2024-05-24 01:37 | Inpatient (IN) | payer MEDICARE, SELFPAY ==
[2024-05-24] VITALS (58 sets, daily range): BP systolic 80–164; BP diastolic 39–75; PULSE 52–84; RESP 12; TEMP 36.2–37.3; O2SAT 85–100; BMI 29.9; BMI 29.5
--- OUTSIDE RECORDS SUMMARY | 2024-05-24 01:46 | XMS_ITS | CCD ---
Author Organization [facility] Care Team Providers 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 Name Role Phone DEVANTE IBARRA Unavailable Unavailable DEVANTE IBARRA Unavailable Unavailable Anna Pereira Primary Care Provider [phone] NON, STAFF, Attending Provider Unavailable Unavailable Unavailable Anna Pereira Unavailable Unavailable Unavailable Brian Sawyer Unavailable Unavailable Unavailable LARA EDOUARD Admitting Unavailable LARA EDOUARD Attending Unavailable DR ANNA PEREIRA Primary Care Unavailable RODERICK ESTRELLA Consulting Unavailable CHARLEY LUCAS Consulting Unavailable MARLON METCALF Consulting Unavailable LARA EDOUARD Consulting Unavailable Julio WALLER, Dr. Devante Palma Attending Unavailable Julio WALLER, Dr. Devante Palma Referring Unavailable Dr. Anna Pereira Primary Care Unavailable ANNA PEREIRA Primary Care Unavailable GILMER, EHAD Consulting Unavailable INPATIENT, TELENEUROLOGY Consulting Unavail able Anna Pereira DO Primary Care Provider Shaikh Serna MD Primary Care Provider [phone] MD Mary Espana Attending Provider MD Laury Serna Primary Care Provider [phone] SHAIKH SERNA Attending Unavailable TRENT RAMIREZ Attending Unavailable SHAIKH SERNA Attending Unavailable SHAIKH SERNA Attending Unavailable ANTONY GRANT Attending Unavailable SHAIKH SERNA Attending Unavailable SHAIKH SERNA Attending Unavailable TRENT RAMIREZ Attending Unavailable MD Laury Serna Primary Care Provider MD Isabelle Dale Admit Provider [phone] MD Shahzad Gomez Attending Provider [phone] MD Elayne Stoddard Other Provider DEVANTE IBARRA Attending Unavailable [facility] Unavailable Jeremy Angel Kim Emergency Provider [phone] MD Kali Helton Admit Provider MD Kali Helton Attending Provider [phone] Mary Espana Attending Unavailable Mary Espana Admitting Unavailable [facility] Care Unavailable Elayne Stoddard Consulting Unavailable Isabelle Dale Admitting Unavailable Shahzad Gomez Attending Unavailable [facility] Unavailable Kali Helton Attending Unavailable Kali Helton Admitting Unavailable [facility] Unavailable Unavailable Unavailable Unavailable Allergies Allergy Classification [...] Sig (Original) acetaminophen 325 mg oral tablet (10 sources) Start: 09-09-2020 take 650 mg by mouth every six hours Acetaminophen Active 650 MG PO Q6H 0 September 09, 2020 12:00am take 1 tablet by mouth every six hours acetaminophen (Tylenol) 325 MG tablet Take 325 mg by mouth every 6 (six) hours 0 Active amLODIPine 10 mg / hydroCHLOROthiazide 25 mg / valsartan 320 mg oral tablet (1 source) Thiazide Diuretic, Dihydropyridine Calcium Channel Bronwyn, Angiotensin 2 Receptor Bronwyn Start: 05-22-2024 take 1 tablet by mouth once daily Pxfubyqxir-Bxnditacw-Hxeohzdzr Active 1 TAB PO Daily May 22, 2024 12:00am apixaban 2.5 mg oral tablet (4 sources) Factor Xa Inhibitor Start: 05-04-2024 take 1 tablet by mouth twice daily Apixaban (Eliquis) 2.5 mg tablet Active 2.5 MG PO Twice daily May 04, 2024 12:00am atorvastatin 80 mg oral tablet (20 sources) HMG-CoA Reductase Inhibitor Start: 04-18-2022 take [...] the morning. 30 capsule 12/16/2023 12/10/2024 Active 168 hr cloNIDine 0.12728 mg/hr transdermal system (10 sources) Central alpha-2 Adrenergic Agonist Start: 12-24-2020 cloNIDine (CATAPRES- TTS) 0.2 mg/24 hr apply ONE PATCH EACH Week @0900 IN THE MORNING 0 12/24/2020 Active Start: 09-09-2020 End: 12-25-2021 Clonidine Discontinued 1 EAC H TRANSDERML We@0900 4 September 09, 2020 12:00am December 25, 2021 6:36pm clopidogrel 75 mg oral tablet (20 sources) [id number] Platelet Inhibitor Start: 05-17-2024 take 1 tablet by mouth once daily Clopidogrel (Plavix) 75 mg tablet Active 75 MG PO Daily May 17, 2024 12:00am Start: 10-14-2019 End: 10-21-2021 take 1 tablet by mouth once daily in the morning Clopidogrel (Plavix) 75 mg tablet Discontinued 75 MG PO Every morning September 09, 2020 12:39pm October 21, 2021 9:50am diclofenac sodium 0.01 mg/mg topical gel (4 sources) Nonsteroidal Anti-inflammatory Drug Start: 03-24-2019 diclofenac sodium (VOLTAREN) 1 % gel Apply 2 g topically 4 (four) times a day. 100 g 0 03/24/2019 Active ferrous sulfate 325 mg oral tablet (20 sources) Start: 05-22-2024 Ferrous Sulfat e (Ferosul) 325 mg (65 mg iron) tablet Active 325 MG PO Q48H 0 360 May 22, 2024 11:43am Start: 05-04-2024 End: 05-22-2024 take 1 tablet by mouth once daily Ferrous Sulfate (Ferosul) 325 mg (65 mg iron) tablet Discontinued 325 MG PO Daily May 04, 2024 12:00am May 22, 2024 11:46am Start: 12-02-2023 End: 03-01-2024 take 1 tablet [...] DO Active fluconazole 150 mg oral tablet (4 sources) Azole Antifungal Start: 05-04-2024 take 150 mg by mouth every week Fluconazole Active 150 MG PO every week May 04, 2024 12:00am folic acid 1 mg oral tablet (1 source) Start: 05-22-2024 take 1 mg by mouth once daily Folic Acid Active 1 MG PO Daily 90 May 22, 2024 12:00am furosemide 20 mg oral tablet (11 sources) Loop Diuretic Start: 05-04-2024 take 20 [...] 100 mg before bedtime. 0 11/23/2023 Active 50 ml immunoglobulin g, human 100 mg/ml injection (4 sources) Human Immunoglobulin G Start: 05-04-2024 Immun Glob G(Igg)-Gly-Iga Ov50 (Gammagard Liquid) 10 % solution Active 50 GM IV .COMPLEX May 04, 2024 12:00am 50 grams intravenously Q 21 days; magnesium gluconate 550 mg oral tablet (4 [...] Active metoprolol tartrate 50 mg oral tablet (20 sources) beta-Adrenergic Bronwyn Start: 05-04-2024 take 50 mg by mouth twice daily Metoprolol Tartrate Active 50 MG PO Twice daily May 04, 2024 12:00am Start: 09-09-2020 End: 05-04-2024 take 25 mg by mouth every twelve hours Metoprolol Tartrate Discontinued 25 MG PO Every 12 hours September 09, 2020 12:00am May 04, 2024 [...] 0 Refills: 0 Ordered: 20-Aug-2023 DO Active 24 hr nitroglycerin 0.2 mg/hr transdermal system (13 sources) Nitrate Vasodilator Start: 05-17-2024 apply 0.2 mg transdermal route every hour, then apply 1 dose transdermal route every twenty-four hours Nitroglycerin (Nitro-Dur) 0.2 mg/hr patch 24 hour Active 1 PATCH TRANSDERML Daily May 17, 2024 12:00am allow nitrate-free interval of approx. 10-12 hrs per 24-hour period Start: 10-14-2019 Nitroglycerin Active 0.4 MG SUBLINGUAL Q5M October 14, 2019 1:00am omeprazole 20 mg delayed release oral tablet (2 sources) Proton Pump Inhibitor Start: 05-22-2024 take 20 mg by mouth once daily Omeprazole Active 20 MG PO Daily May 22, 2024 12:00am Start: 12-17-2023 End: 03-16-2024 take 1 capsule by mouth before mealtime omeprazole (PriLOSEC) [address] capsule Indications: Gastroesophageal reflux disease without esophagitis Take 1 capsule (40 mg) by mouth in the morning. Take before meals. Do not crush or chew.. 90 capsule 0 12/17/2023 03/16/2024 Active ondansetron 4 mg oral tablet (4 sources) Serotonin-3 Receptor Antagonist Start: 05-04-2024 take 4 [...] Active Start: 10-12-2021 take 2 tablets by [facility] every twenty-four hours predniSONE 20 MG 2 tablets Orally Once a day for 5 days Sep, Active pregabalin 75 mg oral capsule (4 sources) Start: 05-04-2024 take 75 mg by mouth twice daily Pregabalin Active 75 MG PO Twice daily May 04, 2024 12:00am spironolactone 25 mg oral tablet (6 sources) Aldosterone Antagonist Start: 12-03-2023 End: 12-02-2024 take 25 mg by mouth once daily Spironolactone Active 25 MG PO Daily May 04, 2024 12:00am take 1 tablet by mouth once scott y Spironolactone 25 MG Oral Tablet TAKE 1 TABLET DAILY. Quantity: 90 Refills: 3 Ordered: 20-Aug-2023 DO Active thiamine 100 mg oral tablet (6 sources) Start: 12-16-2023 End: 12-15-2024 take 100 mg by mouth once daily Thiamine Hcl (Vitamin B1) Active 100 MG PO Daily May 04, 2024 12:00am tiZANidine 4 mg oral tablet (5 sources) Central alpha-2 Adrenergic Agonist Start: 05-04-2024 [...] tablet traMADol hydrochloride 50 mg oral tablet (16 sources) Opioid Agonist Start: 02-28-2021 take 1 [...] 6:36pm Vitamin B Comp And C No.3 (6 sources) Start: 06-05-2020 take 1 capsule by [...] (meal/snack) Start: 06-05-2020 take 1 capsule by [facility] once daily at mealtime Vitamin B Comp And C No.3 Active 1 CAP PO Daily June 04, 2020 11:00pm give with food (meal/snack) vitamin b12 1 mg oral capsule (5 sources) Vitamin B12 Start: 05-22-2024 take 1000 ug by mouth once daily Cyanocobalamin (Vitamin B-12) Active 1000 MCG PO Daily May 22, 2024 12:00am Start: 05-04-2024 End: 05-22-2024 take 500 ug by mouth once daily Cyanocobalamin (Vitamin B-12) Discontinued 500 MCG PO Daily May 04, 2024 12:00am May 22, 2024 2:15pm Start: 05-04-2024 take 500 ug by mouth once daily Cyanocobalamin (Vitamin B-12) Active 500 MCG PO Daily May 04, 2024 12:00am Vitamin B12 500 MCG (1 source) take 1 tablet by once daily Vitamin B12 500 MCG 1 tablet Orally Once a day Active Completed/Discontinued Medications Medication Drug Class(es) Dates Sig (Normalized) Sig (Original) [id number] actuat albuterol 0.09 mg/actuat metered dose inhaler (11 sources) beta2-Adrenergic Agonist Start: 05-04-2024 End: 05-20-2024 take 1 puff(s) by inhalation every four hours Albuterol Sulfate Discontinued 2 PUFF INHALATION Every 4 hours May 04, 2024 12:00am May 20, 2024 4:39pm Start: 12-02-2023 End: 01-01-2024 take 2 puff(s) by inhalation every four hours for wheezing albuterol HFA 90 mcg/act inhaler Indications: Chronic obstructive pulmonary disease, unspecified COPD type (CMS/HCC) Inhale 2 puffs every 4 (four) hours if needed for wheezing or shortness of breath 8.5 g 1 12/02/2023 01/01/2024 Active Start: 10-25-2021 End: 12-25-2021 take 1 puff(s) by inhalation every four hours Albuterol Sulfate (Ventolin Hfa) 90 mcg/actuation Hfa Aerosol Inhaler Discontinued 2 PUFF INHALATION Q4H 1 October 25, 2021 1:00am December 25, 2021 6:35pm Start: 10-12-2021 take 2 puff(s) by in halation every four hours as needed Albuterol Sulfate HFA 108 (90 Base) MCG/ACT 2 puffs Inhalation every 4 hours as needed for 7 days Sep, Active amLODIPine 5 mg oral tablet (20 sources) Dihydropyridine Calcium Channel Bronwyn Start: 05-04-2024 End: 05-22-2024 take 10 mg by mouth once daily Amlodipine Discontinued 10 MG PO Daily May 04, 2024 9:58am May 22, 2024 11:46am Start: 05-04-2024 End: 05-04-2024 take 5 mg by mouth once daily Amlodipine Discontinued 5 MG PO Daily May 04, 2024 12:00am May 04, 2024 9:58am Start: 08-20-2023 take 1 tablet by lucio th once daily amLODIPine Besylate 5 MG Oral Tablet TAKE 1 TABLET DAILY. Quantity: 90 Refills: 3 Ordered: 20-Aug-2023 Devante Ibarra MD Start : 20-Aug-2023 Active Start: 04-20-2018 End: 05-04-2024 take 10 mg by mouth once daily in the morning Amlodipine Discontinued 10 MG PO Every morning April 05, 2019 12:00am September 09, 2020 12:40pm aspirin 81 mg chewable tablet (17 sources) Platelet Aggregation Inhibitor, Nonsteroidal Anti-inflammatory Drug Start: 10-14-2019 End: 05-18-2024 take 81 mg by mouth once daily in the morning Aspirin Discontinued 81 MG PO Every morning August 29, 2020 4:42pm May 18, 2024 1:19pm take 1 tablet by mouth in the mo rning aspirin 81 MG EC tablet Take 81 mg by mouth in the morning. 0 Active bacitracin 0.5 unt/mg ophthalmic ointment (12 sources) Start: 09-06-2020 End: 10-22-2021 Bacitracin Discontinued 1 APPLIC OPHTHALMIC Q8H 7 October 02, 2020 1:00am October 21, 2021 9:50am buprenorphine 8 mg / naloxone 2 mg sublingual film (6 sources) Partial Opioid Agonist, Opioid Antagonist Start: 05-04-2024 End: 05-18-2024 Buprenorphine-Naloxone Discontinued 0 SUBLINGUAL Daily May 04, 2024 12:00am May 18, 2024 1:19pm 1.5 film sublingually daily; Start: 11-09-2023 Buprenorphine HCl-Naloxone HCl (Suboxone) 8-2 MG SL film DISSOLVE 1.5 film UNDER THE TONGUE ONCE DAILY 0 11/09/2023 Active Buprenorphine HC l-Naloxone HCl - 8-2 MG Sublingual Film as directed Quantity: 0 Refills: 0 Ordered: 20-Aug-2023 DO Active cephalexin 500 mg oral capsule (5 sources) Cephalosporin Antibacterial Start: 10-25-2021 End: 12-25-2021 take 500 mg by mouth twice daily Cephalexin Discontinued 500 MG PO Twice daily 4 October 25, 2021 1:00am December 25, 2021 6:35pm dexamethasone 6 mg oral tablet (5 sources) Corticosteroid Start: 10-25-2021 End: 12-25-2021 take 6 mg by mouth once daily Dexamethasone Discontinued 6 MG PO Daily October 25, 2021 1:00am December 25, 2021 6:36pm famotidine 20 mg oral tablet (5 sources) Histamine-2 Receptor Antagonist Start: 10-25-2021 End: 12-25-2021 take 20 mg by mouth once daily Famotidine Discontinued 20 MG PO Daily 14 October 25, 2021 1:00am December 25, 2021 6:36pm 17 ml ferumoxytol 30 mg/ml injection (1 source) Parenteral Iron Replacement Start: 07-03-2020 Ferumoxytol 510 MG/17ML as directed Intravenous Jun, Not-Taking 12 hr guaiFENesin 600 mg extended release oral tablet (5 sources) Start: 10-25-2021 End: 12-25-2021 take 2 tablets by mouth twice daily, then take 1 tablet by mouth every twelve hours Guaifenesin (Mucinex) 600 mg Tablet Extended Release 12hr Discontinued 1200 MG PO Twice daily 56 October 25, 2021 1:00am December 25, 2021 6:36pm hydroCHLOROthiazide 12.5 mg oral tablet (20 sources) Thiazide Diuretic Start: 05-04-2024 End: 05-22-2024 take 12.5 mg by mouth once daily Hydrochlorothiazide Discontinued 12.5 MG PO Daily May 04, 2024 12:00am May 22, 2024 11:46am On Hold: hold until you see your tubing oiler Start: 09-09-2020 End: 04-18-2022 take 25 mg [...] Dr. Ibarra lisinopril 40 mg oral tablet (20 sources) Angiotensin Converting Enzyme Inhibitor Start: 05-04-2024 End: 05-22-2024 take 40 mg by mouth once daily Lisinopril Discontinued 40 MG PO Daily May 04, 2024 12:00am May 22, 2024 11:46am Start: 04-05-2019 End: 04-06-2019 take 5 mg by mouth once daily Lisinopril Discontinued 5 MG PO Daily April 05, 2019 12:00am April 06, 2019 12:58pm Start: 04-20-2018 End: 04-18-2022 take 40 mg by mouth once daily in the morning Lisinopril Discontinued 40 MG PO Every morning September 09, 2020 12:39pm April 18, 2022 1:26pm Magnesium (14 sources) Start: 09-09-2020 End: 01-06-2024 take 400 [...] chloride 20 meq extended release oral tablet (9 sources) Start: 04-05-2019 End: 06-03-2020 take 20 [...] DAILY. Quantity: 90 Refills: 3 Ordered: 20-Aug-2023 Devante Ibarra MD Start : 20-Aug-2023 Active rivaroxaban 10 mg oral tablet (5 sources) Factor Xa Inhibitor Start: 10-25-2021 End: 12-25-2021 take 1 tablet by mouth once daily Rivaroxaban (Xarelto) 10 mg tablet Discontinued 10 MG PO Daily October 25, 2021 1:00am December 25, 2021 6:37pm ticagrelor 90 mg oral tablet (7 sources) Start: 04-22-2022 take 1 tablet by mouth twice daily Brilinta 90 MG Oral Tablet TAKE 1 TABLET TWICE DAILY. Quantity: 180 Refills: 3 Ordered: 22-Apr-2022 Devante Contreras DO Start : 22-Apr-2022 Active Start: 04-18-2022 End: 01-06-2024 take 1 tablet by mouth twice daily Ticagrelor (Brilinta) 60 mg Tablet Discontinued 90 MG PO Twice daily 270 90 April 18, 2022 12:00am January 06, 2024 11:02am valsartan 80 mg oral tablet (9 sources) Angiotensin 2 Receptor Bronwyn Start: 04-18-2022 End: 05-04-2024 take 80 mg by mouth once daily Valsartan Discontinued 80 MG PO Daily April 18, 2022 12:00am May 04, 2024 9:54am Vitamin B Complex CAPS (2 sources) Vitamin B Comple x CAPS TAKE 1 CAPSULE Daily Quantity: 0 Refills: 0 Ordered: 30-Apr-2022 DO Active Problems Active Problems Problem Classification Problem Date Documented Date Episodic/Chronic Acute and unspecified renal failure (20 sources) Acute renal failure syndrome; Translations: [Injury of kidney] Onset: 12-03-2023 12-16-2023 Episodic Administrative/social admission (1 source) Patient encounter status; Translations: [Persons encountering health services in other specified circumstances] Onset: 12-03-2023 12-03-2023 Episodic Cardiac dysrhythmias (4 sources) Sinus tachycardia; Translations: [Tachycardia, unspecified] Onset: 01-29-2024 01-29-2024 Episodic Chronic kidney disease (20 sources) Chronic kidney disease stage 3; Translations: [Chronic kidney disease, stage 3 (moderate)] Onset: 12-02-2023 12-02-2023 Chronic Chronic kidney disease (1 source) Chronic kidney disease; Translations: [Chronic kidney disease, stage 3b] Onset: 05-16-2024 Complications of surgical procedures or medical care (6 sources) Trauma and postoperative pulmonary insufficiency; Translations: [Acute postprocedural respiratory failure] 09-04-2020 Episodic Conditions associated with dizziness or vertigo (6 sources) Dizziness; Translations: [Dizziness and giddiness] 04-05-2019 Episodic Congestive heart failure; nonhypertensive (19 sources) Acute congestive heart failure; Translations: [Congestive [...] 12-02-2023 12-30-2023 Chronic Deficiency and other anemia (6 sources) Anemia; Translations: [Anemia, unspecified] 06-04-2020 Episodic Deficiency and other anemia (5 sources) Iron deficiency anemia; Translations: [Iron deficiency anemia, unspecified] Onset: 01-29-2024 01-29-2024 Episodic Diabetes mellitus without complication (1 source) Blood glucose abnormal; Translations: [Other abnormal glucose] Onset: 12-02-2023 12-02-2023 Episodic Disorders of lipid metabolism (12 sources) Hyperlipidemia; Translations: [Mixed hyperlipidemia] Onset: 12-02-2023 12-02-2023 Chronic E Codes: Fall (6 sources) Fall on same level, unspecified, initial encounter; Translations: [Fall] Onset: 12-29-2022 12-25-2021 Episodic Esophageal disorders (1 source) Gastroesophageal reflux disease without esophagitis; Translations: [Gastro-esophageal reflux disease without esophagitis] Onset: 12-17-2023 12-17-2023 Chronic Essential hypertension (20 sources) Hypertensive disorder; Translations: [Essential hypertension] Onset: 12-02-2023 12-02-2023 Chronic Essential hypertension (1 source) Essential hypertension Onset: 07-22-2017 Fluid and electrolyte disorders (18 sources) Metabolic acidosis; Translations: [Metabolic acidosis] Onset: 02-13-2024 04-16-2022 Episodic Fracture of upper limb (1 source) Other intraarticular fracture of lower end of left radius, initial encounter for closed fracture; Translations: [OTH IA FX LOW LT RADUS INIT CLOS FX] Onset: 12-29-2022 Episodic Hypertension with complications and secondary hypertension (20 sources) Hypertensive emergency; Translations: [Hypertensive urgency ] 04-05-2019 Chronic Immunizations and screening for infectious disease (6 sources) Contact with and (suspected) exposure to other viral communicable diseases; Translations: [Tetanus toxoid vaccination given] Onset: 10-12-2021 Resolved: 10-12-2021 Episodic Malaise and fatigue (17 sources) Malaise; Translations: [Asthenia] 06-03-2020 Episodic Nausea and vomiting (6 sources) Nausea; Translations: [Nausea] 04-05-2019 Episodic Nonspecific chest pain (20 sources) Chest pain; Translations: [Other chest pain] Onset: 12-27-2022 Episodic Nutritional deficiencies (1 source) Iron deficiency; Translations: [Iron deficiency] Chronic Nutritional deficiencies (5 sources) Iron deficiency; Translations: [Iron deficiency] 06-04-2020 Episodic Open wounds of head; neck; and trunk (5 sources) Laceration of right eyelid; Translations: [Laceration without foreign body of right eyelid and periocular area, initial encounter] 12-25-2021 Episodic Other aftercare (3 sources) Treatment changed; Translations: [Long-term (current) use of other medications] Episodic Other aftercare (1 source) Other terminal operator (current) drug therapy; Translations: [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 THERAPY] Onset: 12-29-2022 Episodic Other aftercare (3 sources) Long-term current use of anticoagulant; Translations: [terminal operator (current) use of anticoagulants] 05-17-2024 Episodic Other aftercare (4 sources) terminal operator (current) use of anticoagulants; Translations: [Long-term (current) use of anticoagulants] Onset: 05-16-2024 05-18-2024 Episodic Other bone disease and musculoskeletal deformities [...] Onset: 12-03-2023 12-16-2023 Episodic Other circulatory disease (5 sources) H/O: heart failure; Translations: [Personal history of other diseases of the circulatory system] 10-21-2021 Episodic Other circulatory disease (2 sources) Peripheral vascular angioplasty status; Translations: [Peripheral vascular angioplasty status] Onset: 12-03-2023 Episodic Other connective tissue disease (4 sources) Muscle weakness; Translations: [Muscle weakness (generalized)] Onset: 02-13-2024 02-13-2024 Episodic Other lower respiratory disease (6 sources) Hypoxia; Translations: [Hypoxemia] 06-03-2020 Episodic Other lower respiratory disease (4 sources) Dyspnea; Translations: [Shortness of breath] Onset: 12-03-2023 12-16-2023 Episodic Other nervous system disorders (1 source) Neuropathy; Translations: [Idiopathic progressive neuropathy] 12-30-2023 Chronic Other nervous system disorders (1 source) Walking disability; Translations: [Difficulty in walking, not elsewhere classified] Onset: 12-17-2023 12-17-2023 Chronic Other nervous system disorders (5 sources) Chronic inflammatory demyelinating polyradiculoneuropathy ; Translations: [Chronic inflammatory demyelinating polyneuritis] Onset: 12-17-2023 12-17-2023 Chronic Other nervous system disorders (4 sources) Polyneuropathy; Translations: [Polyneuropathy, unspecified] Onset: 01-29-2024 01-29-2024 Chronic Other nervous system disorders (3 sources) Chronic inflammatory demyelinating polyneuritis; Translations: [Chronic inflammatory demyelinating polyneuritis] 05-04-2024 Chronic Other nervous system disorders (4 sources) Finding related to ability to move; Translations: [Other abnormalities of gait and mobility] Onset: 02-13-2024 02-13-2024 Episodic Other non-epithelial cancer of skin (8 sources) Malignant neoplasm of skin; Translations: [Basal [...] 12-03-2023 12-16-2023 Episodic Other upper respiratory disease (5 sources) Anterior epistaxis; Translations: [Epistaxis] 12-25-2021 Episodic [...] above: Quit 1993; Skull and face fractures (5 sources) Closed fracture of nasal bones; Translations: [Fracture of nasal bones, initial encounter for closed fracture] 12-25-2021 Episodic Spondylosis; intervertebral disc disorders; other back problems (6 sources) Lumbosacral spondylosis without myelopathy; Translations: [Spondylosis without myelopathy or radiculopathy, lumbosacral region] Onset: 07-05-2018 03-24-2019 Chronic Superficial injury; contusion (7 sources) Contusion of left hand, initial encounter; Translations: [Contusion of left knee, initial encounter] Onset: 12-29-2022 12-25-2021 Episodic Syncope (6 sources) Near syncope; Translations: [Syncope and collapse] 04-05-2019 Episodic Unclassified (2 sources) Oth symptoms and signs involving the circ and resp systems / R09.89(ICD-9) Onset: 07-22-2017 Unclassified (1 source) Pure hypercholesterolemia, unspecified / E78.00(ICD-9) Onset: 07-22-2017 Unclassified (1 source) Personal history of nicotine dependence / Z87.891(ICD-9) Onset: 07-22-2017 Unclassified (1 source) Athscl heart disease of [place] coronary artery w/o ang pctrs / I25.10(ICD-9) Onset: 07-22-2017 Unclassified (1 source) Old myocardial infarction / I25.2(ICD-9) Onset: 07-22-2017 Unclassified (1 source) Overweight / E66.3(ICD-9) Onset: 07-22-2017 Viral infection (15 sources) COVID-19; Translations: [Pneumonia due to COVID-19 virus] Onset: 01-29-2024 10-21-2021 Episodic Past or Other Problems Problem Classification Problem Date Documented Da te Episodic/Chronic Deficiency and other anemia (4 sources) Anemia, unspecified; Translations: [Anemia, unspecified] Onset: 01-06-2024 05-18-2024 Episodic Other circulatory disease (1 source) Other [...] Test Name Value Interpretation Reference Range Facility Folate [Mass/volume] in Seru m or PlasmaOrdered By: Kali Helton on 05-22-2024 Folate [Mass/Vol] 5.4 ng/mL Low >5.9 [facility] Comment on above: Folate reference ran ge: >5.9 ng/mlThe WHO technical consultation on folate and vitamin [id number] has determined that folate concentrations lessthan 4 ng/ml are considered deficient. Vit. B12/Folate Profileon Folate 5.4 ng/mL Low >5.9 [facility] Comment on above: Order Comment: Comme nt addon Result Comment: Maryann te reference range: >5.9 ng/ml The WHO technical consultation on folate and vitamin b12 deficiencies has determined that folate concentrations less than 4 ng/ml are considered deficient. PERFORMED BY: [facility] [address] [place] [address] PATHOLOGIST CLIENT SERVICE SUPERVISOR CUCA VOGT M.D. Performed By: #### B MP, LIPID, MG #### [facility] [address] [place] [address] Vitamin B12 ser/plasOrdered By: Kali Helton on 05-22-2024 Cobalamin (Vitamin B12) [Mass/Vol] 219 pg/mL Normal 180-914 [facility] Comment on above: Order Comment: Commlouisa nt addon Performed By: #### B MP, LIPID, MG #### [address] Troponin I High Sensitivityo n 05-21-2024 Troponin I High Sensitivity 34.0 pg/mL High 0.0-15.0 [facility] Comment on above: Result Comment: PERF ORMED BY: [place] [address] PATHOLOGIST CLIENT SERVICE SUPERVISOR CUCA VOGT M.D. Performed By: #### H S TROP #### [address] Troponin I.cardiac [Mass/vol ume] in Serum or Plasma by Detection limit <= 0.01 ng/Ordered By: Kali Helton on 05-21-2024 Troponin I.cardiac DL <= 0.01 ng/mL [Mass/Vol] 34.0 pg/mL High 0.0-15.0 [facility] Activated partial thrombopla stin time (aPTT) in platelet poor plasma by coagulation aOrdered By: Angel Luna on 05-20-2024 aPTT Coag (PPP) [Time] 22.7 s Low 25.1-36.5 [facility] Comment on above: A hematocrit value g reater than 55% may lead to inaccurate results in coagulation testing. Patients having hematocrit values >55% require a special collection tube for coagulation studies. Please contact the laboratory at [phone] for redraw instructions. Alanine aminotransferase [En zymatic activity/volume] in Serum or PlasmaOrdered By: Angel Luna on 05-20-2024 ALT [Catalytic activity/Vol] 22 U/L Normal 7-52 [facility] Comment on above: Performed By: #### B MP, LIPID, MG #### [address] Albumin [Mass/volume] in Ser um or Plasma by Bromocresol green (BCG) dye binding methoOrdered By: Angel Luna on 05-20-2024 Albumin BCG dye [Mass/Vol] 3.7 g/dL 3.5-5.7 [facility] Alkaline phosphatase [Enzyma tic activity/volume] in Serum or PlasmaOrdered By: Angel Luna on 05-20-2024 ALP [Catalytic activity/Vol] 74 U/L Normal 34-104 [facility] Comment on above: Performed By: #### B MP, LIPID, MG #### [address] Aspartate aminotransferase [ Enzymatic activity/volume] in Serum or PlasmaOrdered By: Angel Luna on 05-20-2024 AST [Catalytic activity/Vol] 37 U/L Normal 13-39 [facility] Comment on above: Performed By: #### B MP, LIPID, MG #### [address] Automated basophil %Ordered By: Angel Luna on 05-20-2024 Basophils/100 WBC (Bld) 1.1 % Normal . [facility] Comment on above: Performed By: #### C K, BMP, BNP, HS TROP, CBC, HEPATIC, PTT, PT #### [address] Automated basophil countOrde red By: Angel Luna on 05-20-2024 Basophils (Bld) [#/Vol] 0.0 10*3/uL Normal 0.0-0.2 [facility] Comment on above: Result Comment: PERF ORMED BY: [place] [address] PATHOLOGIST CLIENT SERVICE SUPERVISOR CUCA VOGT M.D. Performed By: #### C K, BMP, BNP, HS TROP, CBC, HEPATIC, PTT, PT #### [facility] [address] Automated blood monocyte cou ntOrdered By: Angel Luna on 05-20-2024 Monocytes (Bld) [#/Vol] 0.6 10*3/uL Normal 0.0-0.8 [facility] Comment on above: Performed By: #### C K, BMP, BNP, HS TROP, CBC, HEPATIC, PTT, PT #### [address] Automated eosinophil %Ordere d By: Angel Luna on 05-20-2024 Eosinophils/100 WBC (Bld) 0.6 % Normal . [facility] Comment on above: Performed By: #### C K, BMP, BNP, HS TROP, CBC, HEPATIC, PTT, PT #### [address] Automated eosinophil countOr dered By: Angel Luna on 05-20-2024 Eosinophils (Bld) [#/Vol] 0.0 10*3/uL Normal 0.0-0.45 [facility] Comment on above: Performed By: #### C K, BMP, BNP, HS TROP, CBC, HEPATIC, PTT, PT #### [address] Automated monocyte %Ordered By: Angel Luna on 05-20-2024 Monocytes/100 WBC (Bld) 13.6 % Normal . [facility] Comment on above: Performed By: #### C K, BMP, BNP, HS TROP, CBC, HEPATIC, PTT, PT #### [address] Automated neutrophil %Ordere d By: Angel Luna on 05-20-2024 Neutrophils/100 WBC (Bld) 44.7 % Normal . [facility] Comment on above: Performed By: #### C K, BMP, BNP, HS TROP, CBC, HEPATIC, PTT, PT #### [address] BNP ser/plasOrdered By: Izabela Luna on 05-20-2024 Natriuretic peptide B (Bld) [Mass/Vol] 461.0 pg/mL High 5-100 [facility] Comment on above: Result Comment: PERF ORMED BY: [place] [address] PATHOLOGIST CLIENT SERVICE SUPERVISOR CUCA VOGT M.D. Performed By: #### B MP, LIPID, MG #### [facility] [address] [place] [address] Basic Metabolic Panelon 04-24 Creatinine Clr Calc Pharmacy 34.50 Normal [facility] Comment on above: Result Comment: PERF ORMED BY: [place] [address] PATHOLOGIST CLIENT SERVICE SUPERVISOR CUCA VOGT M.D. Performed By: #### B MP, LIPID, MG #### [address] GFR/1.73 sq M.predicted MDRD (S/P/Bld) [Vol rate/Area] 37.233 mL/min/{1.73_m2} Normal [facility] Comment on above: Performed By: #### B MP, LIPID, MG #### [facility] [address] [place] [address] Bilirubin.direct [Mass/volum e] in Serum or PlasmaOrdered By: Angel Luna on 05-20-2024 Bilirubin.direct [Mass/Vol] 0.10 mg/dL 0.03-0.18 [facility] Bilirubin.total [Mass/volume ] in Serum or PlasmaOrdered By: Angel Luna on 05-20-2024 Bilirubin [Mass/Vol] 0.5 mg/dL Normal 0.3-1.0 [facility] Comment on above: Performed By: #### B MP, LIPID, MG #### [facility] [address] [place] [address] Calcium [Mass/volume] in Ser um or PlasmaOrdered By: Angel Luna on 05-20-2024 Calcium [Mass/Vol] 8.8 mg/dL Normal 8.6-10.3 [facility] Comment on above: Performed By: #### B MP, LIPID, MG #### [address] Carbon dioxide, total [Moles /volume] in Serum or PlasmaOrdered By: Angel Luna on 05-20-2024 CO2 [Moles/Vol] 24.1 mmol/L Normal 21.0-31.0 [facility] Comment on above: Performed By: #### B MP, LIPID, MG #### [place] [address] [place] Chloride [Moles/volume] in S jocelyn or PlasmaOrdered By: Angel Luna on 05-20-2024 Chloride [Moles/Vol] 106 mmol/L Normal 98-107 [facility] Comment on above: Performed By: #### B MP, LIPID, MG #### [address] Complete Blood Count Auto Di ffon 05-20-2024 Mean Corpuscular HGB Conc 32.1 g/dL Normal 32.0-35.0 [facility] Comment on above: Performed By: #### C K, BMP, BNP, HS TROP, CBC, HEPATIC, PTT, PT #### [place] [address] [place] Monocytes/100 WBC (Bld) 19.14 % Normal 0.00-20.00 [facility] Comment on above: Performed By: #### C K, BMP, BNP, HS TROP, CBC, HEPATIC, PTT, PT #### [place] [address] [place] NRBC% 0.1 /100{WBC} Normal 0-0.5 [facility] Comment on above: Performed By: #### C K, BMP, BNP, HS TROP, CBC, HEPATIC, PTT, PT #### [place] [address] [place] Creatine kinase [Enzymatic a ctivity/volume] in Serum or PlasmaOrdered By: Angel Luna on 05-20-2024 CK [Catalytic activity/Vol] 26 U/L Low 30-223 [facility] Comment on above: Performed By: #### B MP, LIPID, MG #### [facility] [address] [place] [address] Creatinine [Mass/volume] in Serum or PlasmaOrdered By: Angel Luna on 05-20-2024 Creatinine [Mass/Vol] 1.47 mg/dL High 0.60-1.20 [facility] Comment on above: Performed By: #### B MP, LIPID, MG #### [facility] [address] [place] [address] ECG 12 lead ECGon 05-20-2024 ECG 12 lead ECG [facility] [place] [address] [place] [address] Electrocardiograph Report Signed Patient: Kusum Huerta MR#: [id number] 01 : 1950 Acct:[id number] Age/Sex: 74 / F ADM Date: 05/20/24 Loc: Room: [address] [place] [address] Type: ADM INOo Attending Dr: Kali Helton MD Ordering Provider: Angel Luna DO Date of Service: 05/20/24 ECG/ECG 12 lead ECG: Chest Pain Copies to: Test Reason : Blood Pressure : / mmHG Vent. Rate : 073 BPM Atrial Rate : 073 BPM P-R Int : 132 ms QRS Dur : 090 ms QT Int : 392 ms P-R-T Axes : 038 011 069 degrees QTc Int : 431 ms Normal sinus rhythm Possible Inferior infarct (cited on or before 17-MAY-2024) Abnormal ECG When compared with ECG of 17-MAY-2024 07:36, No significant change was found Confirmed by ANGEL LUNA DO ([id number]) on 05/21/2024 1:47:24 AM Referred By: Electronically Signed By:ANGEL LUNA DO Transcribed By: MUS S[place] [address] Normal [facility] Erythrocyte distribution wid th [Ratio] by Automated countOrdered By: Angel Luna on 05-20-2024 Erythrocyte distribution width (RBC) [Ratio] 19.6 % High 11.9-15.3 [facility] Comment on above: Performed By: #### C K, BMP, BNP, HS TROP, CBC, HEPATIC, PTT, PT #### [facility] [address] Erythrocytes [#/volume] in B lood by Automated countOrdered By: Angel Luna on 05-20-2024 RBC (Bld) [#/Vol] 3.82 10*6/uL Normal 3.60-5.00 [facility] Comment on above: Performed By: #### C K, BMP, BNP, HS TROP, CBC, HEPATIC, PTT, PT #### [facility] [address] Glucose [Mass/volume] in Ser um or PlasmaOrdered By: Angel Luna on 05-20-2024 Glucose [Mass/Vol] 108 mg/dL High 70-100 [facility] Comment on above: ADA recommended refe rence rangeRandom Glucose Reference Range is dependent on time and content of last meal. Glucose of more than 200 mg/dL in a nonstressed, ambulatory subject supports the diagnosis of Diabetes Mellitus. Result Comment: [place] om Glucose Reference Range is dependent on time and content of last meal. Glucose of more than 200 mg/dL in a nonstressed, ambulatory subject supports the diagnosis of Diabetes Mellitus. ADA recommended reference range Performed By: #### B MP, LIPID, MG #### [facility] [address] Hematocrit [Volume Fraction] of Blood by Automated countOrdered By: Angel Luna on 05-20-2024 Hematocrit (Bld) [Volume fraction] 31.3 % Low 34.0-46.4 [facility] Comment on above: Performed By: #### C K, BMP, BNP, HS TROP, CBC, HEPATIC, PTT, PT #### [facility] [address] Hemoglobin [Mass/volume] in BloodOrdered By: Angel Luna on 05-20-2024 Hemoglobin (Bld) [Mass/Vol] 10.0 g/dL Low 11.8-15.4 [facility] Comment on above: Performed By: #### C K, BMP, BNP, HS TROP, CBC, HEPATIC, PTT, PT #### [facility] [address] [place] [id number] [facility] Hepatic Panelon 05-20-2024 Albumin [Mass/Vol] 3.7 g/dL Normal 3.5-5.7 [facility] Comment on above: Performed By: #### B MP, LIPID, MG #### [facility] [address] Bilirubin,Indirect 0.4 mg/dL Normal [facility] Comment on above: Performed By: #### B MP, LIPID, MG #### [facility] [address] Bilirubin.indirect [Mass/Vol] 0.10 mg/dL Normal 0.03-0.18 [facility] Comment on above: Performed By: #### B MP, LIPID, MG #### [facility] [address] INR in Platelet poor plasma by Coagulation assayOrdered By: Angel Luna on 05-20-2024 INR Coag (PPP) [Relative time] 1.1 {INR} Normal [facility] Comment on above: INR Therapeutic Rang [...] with mechanical heart valves: 3 - 4.5 Result Comment: INR Therapeutic Range A) Pre- [...] valves: 3 - 4.5 Performed By: #### B MP, LIPID, MG #### [facility] [address] Leukocytes [#/volume] correc jovani for nucleated erythrocytes in Blood by Automated counOrdered By: Angel Luna on 05-20-2024 WBC corrected for nucl RBC Auto (Bld) [#/Vol] 4.3 10*3/uL 3.8-11.6 [facility] Leukocytes [#/volume] in Blo od by Automated countOrdered By: Angel Luna on 05-20-2024 WBC (Bld) [#/Vol] 4.3 10*3/uL Normal 3.8-11.6 [facility] Comment on above: Performed By: #### C K, BMP, BNP, HS TROP, CBC, HEPATIC, PTT, PT #### [facility] [address] Lymphocytes [#/volume] in Bl ood by Automated countOrdered By: Angel Luna on 05-20-2024 Lymphocytes (Bld) [#/Vol] 1.7 10*3/uL Normal 1.00-4.8 [facility] Comment on above: Performed By: #### C K, BMP, BNP, HS TROP, CBC, HEPATIC, PTT, PT #### [facility] [address] [place] [address] Lymphocytes/100 leukocytes i n Blood by Automated countOrdered By: Angel Luna on 05-20-2024 Lymphocytes/100 WBC (Bld) 40.0 % Normal . [facility] Comment on above: Performed By: #### C K, BMP, BNP, HS TROP, CBC, HEPATIC, PTT, PT #### [facility] [address] MCH [Entitic mass] by Automa jovani countOrdered By: Angel Luna on 05-20-2024 MCH (RBC) [Entitic mass] 26.3 pg Normal 24.7-34.3 [facility] Comment on above: Performed By: #### C K, BMP, BNP, HS TROP, CBC, HEPATIC, PTT, PT #### [facility] [address] [place] [address] MCHC Auto (RBC) [Mass/Vol]Or dered By: Angel Luna on 05-20-2024 MCHC (RBC) [Mass/Vol] 32.1 g/dL 32.0-35.0 [facility] MCV [Entitic volume] by Auto mated countOrdered By: Angel Jeremy on 05-20-2024 MCV (RBC) [Entitic vol] 81.9 fL Normal 80-100 [facility] Comment on above: Performed By: #### C K, BMP, BNP, HS TROP, CBC, HEPATIC, PTT, PT #### [facility] [address] Monocyte distribution width [Entitic volume] in Blood by AutomatedOrdered By: Angel Luna on 05-20-2024 Monocyte distribution width Auto (Bld) [Entitic vol] 19.14 % 0.00-20.00 [facility] Neutrophils [#/volume] in Bl ood by Automated countOrdered By: Angel Luna on 05-20-2024 Neutrophils (Bld) [#/Vol] 1.9 10*3/uL Normal 1.8-7.7 [facility] Comment on above: Performed By: #### C K, BMP, BNP, HS TROP, CBC, HEPATIC, PTT, PT #### [facility] [address] No Panel InformationOrdered By: Angel Luna on 05-20-2024 Estimated GFR (CKD-EPI) 37.233 mL/Min [facility] Creatinine Clearance (Chem 34.50 [facility] Nucleated erythrocytes [Pres ence] in Blood by Automated countOrdered By: Angel Luna on 05-20-2024 Nucleated RBC Auto Ql (Bld) 0.1 /100{WBC} 0-0.5 [facility] Partial Thromboplastin Timeo n 05-20-2024 aPTT Coag (Bld) [Time] 22.7 s Low 25.1-36.5 [facility] Comment on above: Result Comment: A he matocrit value greater than 55% may lead to inaccurate results in coagulation testing. Patients having hematocrit values >55% require a special collection tube for coagulation studies. Please contact the laboratory at [phone] for redraw instructions. PERFORMED BY: [place] [address] PATHOLOGIST CLIENT SERVICE SUPERVISOR CUCA VOGT M.D. Performed By: #### B MP, LIPID, MG #### [address] Platelet mean volume [Entiti c volume] in Blood by Automated countOrdered By: Angel Luna on 05-20-2024 Platelet mean volume (Bld) [Entitic vol] 8.4 fL Normal 6.3-10.7 [facility] Comment on above: Performed By: #### C K, BMP, BNP, HS TROP, CBC, HEPATIC, PTT, PT #### [facility] [address] Platelets [#/volume] in Bloo d by Automated countOrdered By: Angel Luna on 05-20-2024 Platelets (Bld) [#/Vol] 220 10*3/uL Normal 150-450 [facility] Comment on above: Performed By: #### C K, BMP, BNP, HS TROP, CBC, HEPATIC, PTT, PT #### [address] Potassium [Moles/volume] in Serum or PlasmaOrdered By: Angel Luna on 05-20-2024 Potassium [Moles/Vol] 3.8 mmol/L Normal 3.5-5.1 [facility] Comment on above: Performed By: #### B MP, LIPID, MG #### [address] Protein [Mass/volume] in Ser um or PlasmaOrdered By: Angel Luna on 05-20-2024 Protein [Mass/Vol] 7.4 g/dL Normal 6.4-8.9 [facility] Comment on above: Performed By: #### B MP, LIPID, MG #### [address] Prothrombin time (PT)Ordered By: Angel Luna on 05-20-2024 PT Coag (PPP) [Time] 12.4 s Normal 9.0-12.9 [facility] Comment on above: A hematocrit value g reater than 55% may lead to inaccurate results in coagulation testing. Patients having hematocrit values >55% require a special collection tube for coagulation studies. Please contact the laboratory at [phone] for redraw instructions. Result Comment: A he matocrit value greater than 55% may lead to inaccurate results in coagulation testing. Patients having hematocrit values >55% require a special collection tube for coagulation studies. Please contact the laboratory at [phone] for redraw instructions. Performed By: #### B MP, LIPID, MG #### [address] Serum globulin measurement b y calculation (mass/volume)Ordered By: Angel Luna on 05-20-2024 Globulin (S) [Mass/Vol] 3.7 g/dL [facility] Comment on above: Performed By: #### B MP, LIPID, MG #### [address] Serum or plasma albumin/glob ulin mass ratioOrdered By: Angel Luna on 05-20-2024 Albumin/Globulin [Mass ratio] 1.0 {ratio} [facility] Comment on above: Performed By: #### B MP, LIPID, MG #### [address] Serum or plasma anion gap de terminationOrdered By: Angel Luna on 05-20-2024 Anion gap [Moles/Vol] 11.7 mmol/L Normal 6.0-15.0 [facility] Comment on above: Performed By: #### B MP, LIPID, MG #### [address] Serum or plasma non-glucuron idated bilirubin measurement (mass/volume)Ordered By: Angel Luna on 05-20-2024 Bilirubin.indirect [Mass/Vol] 0.4 mg/dL [facility] Sodium [Moles/volume] in Ser um or PlasmaOrdered By: Angel Luna on 05-20-2024 Sodium [Moles/Vol] 138 mmol/L Normal 136-145 [facility] Comment on above: Performed By: #### B MP, LIPID, MG #### [address] Troponin I High Sensitivityo n 05-20-2024 Troponin I High Sensitivity 43.8 pg/mL High 0.0-15.0 [facility] Comment on above: Result Comment: PERF ORMED BY: [place] [address] PATHOLOGIST CLIENT SERVICE SUPERVISOR CUCA VOGT M.D. Performed By: #### B MP, LIPID, MG #### [address] Troponin I High Sensitivity 39.2 pg/mL High 0.0-15.0 [facility] Comment on above: Result Comment: PERF ORMED BY: [place] [address] PATHOLOGIST CLIENT SERVICE SUPERVISOR CUCA VOGT M.D. Performed By: #### B MP, LIPID, MG #### [address] Troponin I.cardiac [Mass/vol ume] in Serum or Plasma by Detection limit <= 0.01 ng/Ordered By: Angel Luna on 05-20-2024 Troponin I.cardiac DL <= 0.01 ng/mL [Mass/Vol] 39.2 pg/mL High 0.0-15.0 [facility] Urea nitrogen [Mass/volume] in Serum or PlasmaOrdered By: Angel Luna on 05-20-2024 Urea nitrogen [Mass/Vol] 24 mg/dL Normal 7-25 [facility] Comment on above: Performed By: #### B MP, LIPID, MG #### [place] [address] [place] XR chest 2V*on 05-20-2024 XR chest 2V* [facility] [place] [address] XRay Report Signed Patient: Kusum Huerta MR#: [id number] 01 : 1950 Acct:[id number] Age/Sex: 74 / F ADM Date: 05/20/24 Loc: ER Room: Type: PRE ER Attending Dr: Copies to: Angel Luna DO Ordering Provider: Angel Luna DO Date of Service: 05/20/24 XR/XR chest 2V*: Chest Pain XR chest 2V* 05/20/2024 4:37 PM SIGNS AND SYMPTOMS: Mid chest pain PROTOCOL: Frontal and lateral radiographs of the chest COMPARISON: 07/16/2024 FINDINGS: The trachea is midline. The heart and mediastinal structures are within normal limits. The lung parenchyma is clear. There is a calcified granuloma near the right lung base similar to the prior exam. The bony thorax is intact. Degenerative changes are noted in the shoulders and thoracic spine. Postoperative changes are partly visualized in the right shoulder. XR/XR chest 2V* IMPRESSION: No acute cardiopulmonary pathology. Impression dictated by: Yaw Deluca M.D.05/20/2024 5:00 PM Dictation Location: [place] [address] Transcribed By: [facility] 05/20/24 1700 Dictated By: Yaw Deluca II, MD 05/20/24 1658 Signed By: 05/20/24 1700 Normal [facility] Alanine aminotransferase [En zymatic activity/volume] in Serum or PlasmaOrdered By: Shahzad Gomez on 05-18-2024 ALT [Catalytic activity/Vol] 10 U/L Normal 7-52 [facility] Comment on above: Performed By: #### B MP, LIPID, MG #### [facility] [address] [place] [address] [place] Albumin [Mass/volume] in Ser um or Plasma by Bromocresol green (BCG) dye binding methoOrdered By: Shahzad Gomez on 05-18-2024 Albumin BCG dye [Mass/Vol] 3.4 g/dL Low 3.5-5.7 [facility] Alkaline phosphatase [Enzyma tic activity/volume] in Serum or PlasmaOrdered By: Shahzad Gomez on 05-18-2024 ALP [Catalytic activity/Vol] 75 U/L Normal 34-104 [facility] Comment on above: Performed By: #### B MP, LIPID, MG #### [facility] [address] [place] [address] [place] Aspartate aminotransferase [ Enzymatic activity/volume] in Serum or PlasmaOrdered By: Shahzad Gomez on 05-18-2024 AST [Catalytic activity/Vol] 16 U/L Normal 13-39 [facility] Comment on above: Performed By: #### B MP, LIPID, MG #### [address] Automated basophil %Ordered By: Isabelle Dale on 05-18-2024 Basophils/100 WBC (Bld) 1.9 % Normal . [facility] Comment on above: Performed By: #### B MP, LIPID, MG #### [address] Automated basophil countOrde red By: Isabelle Dale on 05-18-2024 Basophils (Bld) [#/Vol] 0.1 10*3/uL Normal 0.0-0.2 [facility] Comment on above: Result Comment: PERF ORMED BY: [place] [address] PATHOLOGIST CLIENT SERVICE SUPERVISOR CUCA VOGT M.D. Performed By: #### B MP, LIPID, MG #### [address] Automated blood monocyte cou ntOrdered By: Isabelle Dale on 05-18-2024 Monocytes (Bld) [#/Vol] 0.5 10*3/uL Normal 0.0-0.8 [facility] Comment on above: Performed By: #### B MP, LIPID, MG #### [address] Automated eosinophil %Ordere d By: Isabelle Dale on 05-18-2024 Eosinophils/100 WBC (Bld) 5.3 % Normal . [facility] Comment on above: Performed By: #### B MP, LIPID, MG #### [address] Automated eosinophil countOr dered By: Isabelle Dale on 05-18-2024 Eosinophils (Bld) [#/Vol] 0.2 10*3/uL Normal 0.0-0.45 [facility] Comment on above: Performed By: #### B MP, LIPID, MG #### [address] Automated monocyte %Ordered By: Isabelle Dale on 05-18-2024 Monocytes/100 WBC (Bld) 12.9 % Normal . [facility] Comment on above: Performed By: #### B MP, LIPID, MG #### [address] Automated neutrophil %Ordere d By: Isabelle Dale on 05-18-2024 Neutrophils/100 WBC (Bld) 37.4 % Normal . [facility] Comment on above: Performed By: #### B MP, LIPID, MG #### [address] Bilirubin.total [Mass/volume ] in Serum or PlasmaOrdered By: Obaydah Daromar on 05-18-2024 Bilirubin [Mass/Vol] 0.4 mg/dL Normal 0.3-1.0 [facility] Comment on above: Performed By: #### B MP, LIPID, MG #### [address] Calcium [Mass/volume] in Ser um or PlasmaOrdered By: Obaydah Daromar on 05-18-2024 Calcium [Mass/Vol] 8.6 mg/dL Normal 8.6-10.3 [facility] Comment on above: Performed By: #### B MP, LIPID, MG #### [address] Carbon dioxide, total [Moles /volume] in Serum or PlasmaOrdered By: Obaydah Daromar on 05-18-2024 CO2 [Moles/Vol] 23.0 mmol/L Normal 21.0-31.0 [facility] Comment on above: Performed By: #### B MP, LIPID, MG #### [place] [address] [place] Chloride [Moles/volume] in S jocelyn or PlasmaOrdered By: Shahzad Gomez on 05-18-2024 Chloride [Moles/Vol] 109 mmol/L High 98-107 [facility] Comment on above: Performed By: #### B MP, LIPID, MG #### [address] Complete Blood Count Auto Di ffon 05-18-2024 Mean Corpuscular HGB Conc 31.6 g/dL Low 32.0-35.0 [facility] Comment on above: Performed By: #### B MP, LIPID, MG #### [facility] [address] [place] [address] NRBC% 0.3 /100{WBC} Normal 0-0.5 [facility] Comment on above: Performed By: #### B MP, LIPID, MG #### [address] Comprehensive Metabolic Pane murphy 05-18-2024 Albumin [Mass/Vol] 3.4 g/dL Low 3.5-5.7 [facility] Comment on above: Performed By: #### B MP, LIPID, MG #### [address] Creatinine Clr Calc Pharmacy 32.87 Normal [facility] Comment on above: Result Comment: PERF ORMED BY: [place] [address] PATHOLOGIST CLIENT SERVICE SUPERVISOR CUCA VOGT M.D. Performed By: #### B MP, LIPID, MG #### [address] GFR/1.73 sq M.predicted MDRD (S/P/Bld) [Vol rate/Area] 34.939 mL/min/{1.73_m2} Normal [facility] Comment on above: Performed By: #### B MP, LIPID, MG #### [address] Creatinine [Mass/volume] in Serum or PlasmaOrdered By: Shahzad Marrufoomar on 05-18-2024 Creatinine [Mass/Vol] 1.55 mg/dL High 0.60-1.20 [facility] Comment on above: Performed By: #### B MP, LIPID, MG #### [facility] [address] Erythrocyte distribution wid th [Ratio] by Automated countOrdered By: Isabelle Dale on 05-18-2024 Erythrocyte distribution width (RBC) [Ratio] 20.1 % High 11.9-15.3 [facility] Comment on above: Performed By: #### B MP, LIPID, MG #### [facility] [address] Erythrocytes [#/volume] in B lood by Automated countOrdered By: Isabelle Dale on 05-18-2024 RBC (Bld) [#/Vol] 3.62 10*6/uL Normal 3.60-5.00 [facility] Comment on above: Performed By: #### B MP, LIPID, MG #### [facility] [address] [place] [address] [place] Glucose [Mass/volume] in Ser um or PlasmaOrdered By: Shahzad Gomez on 05-18-2024 Glucose [Mass/Vol] 110 mg/dL High 70-100 [facility] Comment on above: ADA recommended refe rence rangeRandom Glucose Reference Range is dependent on time and content of last meal. Glucose of more than 200 mg/dL in a nonstressed, ambulatory subject supports the diagnosis of Diabetes Mellitus. Result Comment: [place] om Glucose Reference Range is dependent on time and content of last meal. Glucose of more than 200 mg/dL in a nonstressed, ambulatory subject supports the diagnosis of Diabetes Mellitus. ADA recommended reference range Performed By: #### B MP, LIPID, MG #### [facility] [address] [place] [address] [place] Hematocrit [Volume Fraction] of Blood by Automated countOrdered By: Isabelle Dale on 05-18-2024 Hematocrit (Bld) [Volume fraction] 29.8 % Low 34.0-46.4 [facility] Comment on above: Performed By: #### B MP, LIPID, MG #### [facility] [address] [place] [address] Hemoglobin [Mass/volume] in BloodOrdered By: Isabelle Dale on 05-18-2024 Hemoglobin (Bld) [Mass/Vol] 9.4 g/dL Low 11.8-15.4 [facility] Comment on above: Performed By: #### B MP, LIPID, MG #### [facility] [address] Leukocytes [#/volume] correc jovani for nucleated erythrocytes in Blood by Automated counOrdered By: Isabelle Dale on 05-18-2024 WBC corrected for nucl RBC Auto (Bld) [#/Vol] 3.8 10*3/uL 3.8-11.6 [facility] Leukocytes [#/volume] in Blo od by Automated countOrdered By: Isabelle Dale on 05-18-2024 WBC (Bld) [#/Vol] 3.8 10*3/uL Normal 3.8-11.6 [facility] Comment on above: Performed By: #### B MP, LIPID, MG #### [facility] [address] [place] [address] [place] Lymphocytes [#/volume] in Bl ood by Automated countOrdered By: Isabelle Dale on 05-18-2024 Lymphocytes (Bld) [#/Vol] 1.6 10*3/uL Normal 1.00-4.8 [facility] Comment on above: Performed By: #### B MP, LIPID, MG #### [facility] [address] [place] [address] [place] Lymphocytes/100 leukocytes i n Blood by Automated countOrdered By: Isabelle Dale on 05-18-2024 Lymphocytes/100 WBC (Bld) 42.5 % Normal . [facility] Comment on above: Performed By: #### B MP, LIPID, MG #### [facility] [address] [place] [address] [place] MCH [Entitic mass] by Automa jovani countOrdered By: Isabelle Dale on 05-18-2024 MCH (RBC) [Entitic mass] 26.1 pg Normal 24.7-34.3 [facility] Comment on above: Performed By: #### B MP, LIPID, MG #### [facility] [address] [place] [address] MCHC Auto (RBC) [Mass/Vol]Or dered By: Isabelle Dale on 05-18-2024 MCHC (RBC) [Mass/Vol] 31.6 g/dL Low 32.0-35.0 [facility] MCV [Entitic volume] by Auto mated countOrdered By: Isabelle Dale on 05-18-2024 MCV (RBC) [Entitic vol] 82.4 fL Normal 80-100 [facility] Comment on above: Performed By: #### B MP, LIPID, MG #### [facility] [address] [place] [address] Neutrophils [#/volume] in Bl ood by Automated countOrdered By: Isabelle Dale on 05-18-2024 Neutrophils (Bld) [#/Vol] 1.4 10*3/uL Low 1.8-7.7 [facility] Comment on above: Performed By: #### B MP, LIPID, MG #### [facility] [address] [place] [address] No Panel InformationOrdered By: Shahzad Gomez on 05-18-2024 Estimated GFR (CKD-EPI) 34.939 mL/Min [facility] Creatinine Clearance (Chem 32.87 [facility] Nucleated erythrocytes [Pres ence] in Blood by Automated countOrdered By: Isabelle Dale on 05-18-2024 Nucleated RBC Auto Ql (Bld) 0.3 /100{WBC} 0-0.5 [facility] Platelet mean volume [Entiti c volume] in Blood by Automated countOrdered By: Isabelle Dale on 05-18-2024 Platelet mean volume (Bld) [Entitic vol] 8.6 fL Normal 6.3-10.7 [facility] Comment on above: Performed By: #### B MP, LIPID, MG #### [facility] [address] [place] [address] Platelets [#/volume] in Bloo d by Automated countOrdered By: Isabelle Dale on 05-18-2024 Platelets (Bld) [#/Vol] 193 10*3/uL Normal 150-450 [facility] Comment on above: Performed By: #### B MP, LIPID, MG #### [facility] [address] [place] [address] Potassium [Moles/volume] in Serum or PlasmaOrdered By: Obaydah Daromar on 05-18-2024 Potassium [Moles/Vol] 3.9 mmol/L Normal 3.5-5.1 [facility] Comment on above: Performed By: #### B MP, LIPID, MG #### [facility] [address] [place] [address] Protein [Mass/volume] in Ser um or PlasmaOrdered By: Obaydah Daromar on 05-18-2024 Protein [Mass/Vol] 7.0 g/dL Normal 6.4-8.9 [facility] Comment on above: Performed By: #### B MP, LIPID, MG #### [facility] [address] [place] [address] Serum globulin measurement b y calculation (mass/volume)Ordered By: Obaydah Daromar on 05-18-2024 Globulin (S) [Mass/Vol] 3.6 g/dL [facility] Comment on above: Performed By: #### B MP, LIPID, MG #### [facility] [address] [place] [address] Serum or plasma albumin/glob ulin mass ratioOrdered By: Obaydah Daromar on 05-18-2024 Albumin/Globulin [Mass ratio] 0.9 {ratio} [facility] Comment on above: Performed By: #### B MP, LIPID, MG #### [facility] [address] [place] [address] Serum or plasma anion gap de terminationOrdered By: Obaydah Daromar on 05-18-2024 Anion gap [Moles/Vol] 10.9 mmol/L Normal 6.0-15.0 [facility] Comment on above: Performed By: #### B MP, LIPID, MG #### [address] Sodium [Moles/volume] in Ser um or PlasmaOrdered By: Obaydah Daromar on 05-18-2024 Sodium [Moles/Vol] 139 mmol/L Normal 136-145 [facility] Comment on above: Performed By: #### B MP, LIPID, MG #### [address] Urea nitrogen [Mass/volume] in Serum or PlasmaOrdered By: Obaydah Be my eyesomar on 05-18-2024 Urea nitrogen [Mass/Vol] 42 mg/dL High 725 [facility] Comment on above: Performed By: #### B MP, LIPID, MG #### [place] [address] [place] Bacteria [Presence] in Urine by AutomatedOrdered By: ObFeideedaTripConnectomar on 05-17-2024 Bacteria Auto Ql (U) None seen [HPF] None Seen [facility] Basic Metabolic Panelon 04-24 Anion gap [Moles/Vol] 15.6 mmol/L High 6.0-15.0 [facility] Comment on above: Performed By: #### B MP, LIPID, MG #### [place] [address] [place] Calcium [Mass/Vol] 8.5 mg/dL Low 8.6-10.3 [facility] Comment on above: Performed By: #### B MP, LIPID, MG #### [place] [address] [place] Chloride [Moles/Vol] 114 mmol/L High 98-107 [facility] Comment on above: Performed By: #### B MP, LIPID, MG #### [address] CO2 [Moles/Vol] 15.1 mmol/L Low 21.0-31.0 [facility] Comment on above: Performed By: #### B MP, LIPID, MG #### [address] Creatinine [Mass/Vol] 1.96 mg/dL High 0.60-1.20 [facility] Comment on above: Performed By: #### B MP, LIPID, MG #### [address] Creatinine Clr Calc Pharmacy 25.85 Normal [facility] Comment on above: Performed By: #### B MP, LIPID, MG #### [address] GFR/1.73 sq M.predicted MDRD (S/P/Bld) [Vol rate/Area] 26.364 mL/min/{1.73_m2} Normal [facility] Comment on above: Performed By: #### B MP, LIPID, MG #### [address] Glucose [Mass/Vol] 80 mg/dL Normal 70-100 [facility] Comment on above: Result Comment: [facility] Glucose Reference Range is dependent on time and content of last meal. Glucose of more than 200 mg/dL in a nonstressed, ambulatory subject supports the diagnosis of Diabetes Mellitus. ADA recommended reference range Performed By: #### B MP, LIPID, MG #### [address] Potassium [Moles/Vol] 4.7 mmol/L Normal 3.5-5.1 [facility] Comment on above: Performed By: #### B MP, LIPID, MG #### [place] [address] [place] Sodium [Moles/Vol] 140 mmol/L Normal 136-145 [facility] Comment on above: Performed By: #### B MP, LIPID, MG #### [address] Urea nitrogen [Mass/Vol] 52 mg/dL High 7-25 [facility] Comment on above: Performed By: #### B MP, LIPID, MG #### [facility] [address] Bilirubin Test strip Ql (U)O rdered By: Shahzad Gomez on 05-17-2024 Bilirubin Ql (U) Negative Negative [facility] Cholesterol [Mass/volume] in Serum or PlasmaOrdered By: Yulia Jacob on 05-17-2024 Cholesterol [Mass/Vol] 111 mg/dL Low 140-200 [facility] Comment on above: Chol less than 200 m g/dl low riskChol 201-239 mg/dl borderline riskChol 240 mg/dl and greater high risk Result Comment: Chol less than 200 mg/dl low risk Chol 201-239 mg/dl borderline risk Chol 240 mg/dl and greater high risk Performed By: #### B MP, LIPID, MG #### [facility] [address] Cholesterol in LDL Calc [Mas s/Vol]Ordered By: Yulia Jacob on 05-17-2024 Cholesterol in LDL [Mass/Vol] 61 mg/dL 0-100 [facility] Comment on above: LDL ATP III CLASSIFI CATIONLDL less than 100 mg/dL OptimalLDL 100-129 mg/dL Near or above optimalLDL 130-159 mg/dL Borderline highLDL 160-189 mg/dL HighLDL greater than 189 mg/dL Very high Cholesterol in VLDL Calc [Ma ss/Vol]Ordered By: Yulia Jacob on 05-17-2024 Cholesterol in VLDL [Mass/Vol] 21 mg/dL [facility] Color of Urine by AutoOrdere d By: Shahzad Gomez on 05-17-2024 Color (U) Light-yellow Normal Yellow [facility] Comment on above: Order Comment: Name Collection Type:: Clean-Voided Midstream Performed By: #### U CREA, CHETAN, ADDONUAPLUS #### [facility] [address] Complete Blood Count Auto Di ffon 05-17-2024 Basophils (Bld) [#/Vol] 0.1 10*3/uL Normal 0.0-0.2 [facility] Comment on above: Order Comment: DRAW AT 0830 WITH HER OTHER LAB Result Comment: PERF ORMED BY: [place] [address] PATHOLOGIST CLIENT SERVICE SUPERVISOR CUCA VOGT M.D. Performed By: #### B MP, LIPID, MG #### [address] Basophils/100 WBC (Bld) 2.7 % Normal . [facility] Comment on above: Order Comment: DRAW AT 0830 WITH HER OTHER LAB Performed By: #### B MP, LIPID, MG #### [address] Eosinophils (Bld) [#/Vol] 0.0 10*3/uL Normal 0.0-0.45 [facility] Comment on above: Order Comment: DRAW AT 0830 WITH HER OTHER LAB Performed By: #### B MP, LIPID, MG #### [address] Eosinophils/100 WBC (Bld) 0.5 % Normal . [facility] Comment on above: Order Comment: DRAW AT 0830 WITH HER OTHER LAB Performed By: #### B MP, LIPID, MG #### [address] Erythrocyte distribution width (RBC) [Ratio] 20.4 % High 11.9-15.3 [facility] Comment on above: Order Comment: DRAW AT 0830 WITH HER OTHER LAB Performed By: #### B MP, LIPID, MG #### [address] Hematocrit (Bld) [Volume fraction] 30.9 % Low 34.0-46.4 [facility] Comment on above: Order Comment: DRAW AT 0830 WITH HER OTHER LAB Performed By: #### B MP, LIPID, MG #### [address] Hemoglobin (Bld) [Mass/Vol] 9.6 g/dL Low 11.8-15.4 [facility] Comment on above: Order Comment: DRAW AT 0830 WITH HER OTHER LAB Performed By: #### B MP, LIPID, MG #### [address] Lymphocytes (Bld) [#/Vol] 1.1 10*3/uL Normal 1.00-4.8 [facility] Comment on above: Order Comment: DRAW AT 0830 WITH HER OTHER LAB Performed By: #### B MP, LIPID, MG #### [address] Lymphocytes/100 WBC (Bld) 29.6 % Normal . [facility] Comment on above: Order Comment: DRAW AT 0830 WITH HER OTHER LAB Performed By: #### B MP, LIPID, MG #### [address] MCH (RBC) [Entitic mass] 26.1 pg Normal 24.7-34.3 [facility] Comment on above: Order Comment: DRAW AT 0830 WITH HER OTHER LAB Performed By: #### B MP, LIPID, MG #### [address] MCV (RBC) [Entitic vol] 83.8 fL Normal 80-100 [facility] Comment on above: Order Comment: DRAW AT 0830 WITH HER OTHER LAB Performed By: #### B MP, LIPID, MG #### [address] Mean Corpuscular HGB Conc 31.2 g/dL Low 32.0-35.0 [facility] Comment on above: Order Comment: DRAW AT 0830 WITH HER OTHER LAB Performed By: #### B MP, LIPID, MG #### [address] Monocytes (Bld) [#/Vol] 0.4 10*3/uL Normal 0.0-0.8 [facility] Comment on above: Order Comment: DRAW AT 0830 WITH HER OTHER LAB Performed By: #### B MP, LIPID, MG #### [address] Monocytes/100 WBC (Bld) 10.0 % Normal . [facility] Comment on above: Order Comment: DRAW AT 0830 WITH HER OTHER LAB Performed By: #### B MP, LIPID, MG #### [address] Neutrophils (Bld) [#/Vol] 2.1 10*3/uL Normal 1.8-7.7 [facility] Comment on above: Order Comment: DRAW AT 0830 WITH HER OTHER LAB Performed By: #### B MP, LIPID, MG #### [place] [address] [place] Neutrophils/100 WBC (Bld) 57.2 % Normal . [facility] Comment on above: Order Comment: DRAW AT 0830 WITH HER OTHER LAB Performed By: #### B MP, LIPID, MG #### [address] NRBC% 0.2 /100{WBC} Normal 0-0.5 [facility] Comment on above: Order Comment: DRAW AT 0830 WITH HER OTHER LAB Performed By: #### B MP, LIPID, MG #### [address] Platelet mean volume (Bld) [Entitic vol] 8.4 fL Normal 6.3-10.7 [facility] Comment on above: Order Comment: DRAW AT 0830 WITH HER OTHER LAB Performed By: #### B MP, LIPID, MG #### [place] [address] [place] Platelets (Bld) [#/Vol] 218 10*3/uL Normal 150-450 [facility] Comment on above: Order Comment: DRAW AT 0830 WITH HER OTHER LAB Performed By: #### B MP, LIPID, MG #### [place] [address] [place] RBC (Bld) [#/Vol] 3.69 10*6/uL Normal 3.60-5.00 [facility] Comment on above: Order Comment: DRAW AT 0830 WITH HER OTHER LAB Performed By: #### B MP, LIPID, MG #### [place] [address] [place] WBC (Bld) [#/Vol] 3.7 10*3/uL Low 3.8-11.6 [facility] Comment on above: Order Comment: DRAW AT 0830 WITH HER OTHER LAB Performed By: #### B MP, LIPID, MG #### [facility] [address] Creatinine [Mass/volume] in UrineOrdered By: Shahzad Gomez on 05-17-2024 Creatinine (U) [Mass/Vol] 80.00 mg/dL [facility] Comment on above: No reference range e stablished Creatinine, Urine (Random)on 05-17-2024 Creatinine, Urine (Random) 80.00 mg/dL Normal [facility] Comment on above: Result Comment: No r eference range established Performed By: #### U CREA, CHETAN, ADDONUAPLUS #### [address] Dipstick and Microscopicon 0 05-17-2024 Bacteria,Urine None Seen Normal None Seen [facility] Comment on above: Order Comment: Name Collection Type:: Clean-Voided Midstream Performed By: #### U CREA, CHETAN, ADDONUAPLUS #### [address] Bilirubin,Urine Negative Normal Negative [facility] Comment on above: Order Comment: Name Collection Type:: Clean-Voided Midstream Performed By: #### U CREA, CHETAN, ADDONUAPLUS #### [address] Glucose Ql (U) Normal Normal Normal [facility] Comment on above: Order Comment: Name Collection Type:: Clean-Voided Midstream Performed By: #### U CREA, CHETAN, ADDONUAPLUS #### [place] [address] [place] Hyaline Casts,Urine 0-8 Normal 0-8 [facility] Comment on above: Order Comment: Name Collection Type:: Clean-Voided Midstream Performed By: #### U CREA, CHETAN, ADDONUAPLUS #### [place] [address] [place] Mucus,Urine Rare Normal [facility] Comment on above: Order Comment: Name Collection Type:: Clean-Voided Midstream Result Comment: PERF ORMED BY: [place] [address] PATHOLOGIST CLIENT SERVICE SUPERVISOR CUCA VOGT M.D. Performed By: #### U CREA, CHETAN, ADDONUAPLUS #### [place] [address] [place] Nitrite,Urine Negative Normal Negative [facility] Comment on above: Order Comment: Name Collection Type:: Clean-Voided Midstream Performed By: #### U CREA, CHETAN, ADDONUAPLUS #### [place] [address] [place] Occult Blood,Urine Negative Normal Negative [facility] Comment on above: Order Comment: Name Collection Type:: Clean-Voided Midstream Result Comment: PERF ORMED BY: [place] [address] PATHOLOGIST CLIENT SERVICE SUPERVISOR CUCA VOGT M.D. Performed By: #### U CREA, CHETAN, ADDONUAPLUS #### [address] RBC,Urine 1-2 Normal 0-4 [facility] Comment on above: Order Comment: Name Collection Type:: Clean-Voided Midstream Performed By: #### U CREA, CHETAN, ADDONUAPLUS #### [place] [address] [place] Specificy [place],Urine 1.022 Normal 1.001-1.03 0 [facility] Comment on above: Order Comment: Name Collection Type:: Clean-Voided Midstream Performed By: #### U CREA, CHETAN, ADDONUAPLUS #### [place] [address] [place] Squamous Epithelial Cell,Urine 5-9 High 0-2 [facility] Comment on above: Order Comment: Name Collection Type:: Clean-Voided Midstream Performed By: #### U CREA, CHETAN, ADDONUAPLUS #### [facility] [address] Urobilinogen,Urine Normal Normal Normal [facility] Comment on above: Order Comment: Name Collection Type:: Clean-Voided Midstream Performed By: #### U CREA, CHETAN, ADDONUAPLUS #### [facility] [address] WBC,Urine 1-2 Normal 0-4 [facility] Comment on above: Order Comment: Name Collection Type:: Clean-Voided Midstream Performed By: #### U CREA, CHETAN, ADDONUAPLUS #### [facility] [address] ECG 12 lead ECGon 05-17-2024 ECG 12 lead ECG [facility] [place] [address] [place] [address] Electrocardiograph Report Signed Patient: Kusum Huerta MR#: [id number] [birth year] : 1950 Acct:[id number] Age/Sex: 74 / F ADM Date: 05/16/24 Loc: Room: [address] [place] [address] Type: ADM IN Attending Dr: Shahzad Gomez MD Ordering Provider: Yulia Jacob APRN Date of Service: 05/17/24 ECG/ECG 12 lead ECG: chest pain Copies to: Test Reason : Blood Pressure : / mmHG Vent. Rate : 087 BPM Atrial Rate : 087 BPM P-R Int : 148 ms QRS Dur : 088 ms QT Int : 364 ms P-R-T Axes : 025 006 078 degrees QTc Int : 438 ms Normal sinus rhythm Possible Inferior infarct , age undetermined Abnormal ECG When compared with ECG of 18-APR-2022 07:42, Vent. rate has increased BY 29 BPM Borderline criteria for Inferior infarct are now present Confirmed by ANGEL IBARRA MD, FACC ([id number]) on 05/17/2024 8:41:32 AM Referred By: Electronically Signed By:ANGEL IBARRA MD [facility] Transcribed By: MUS Signed By Devante Ibarra MD 05/17/24 0841 Normal [facility] echo transthoracicon [facility] echo transthoracic [facility] [place] [address] [place] [address] Echocardiogram Signed Patient: Kusum Huerta MR#: [id number] 01 : 1950 Acct:[id number] Age/Sex: 74 / F ADM Date: 05/16/24 Loc: Room: [address] [place] [address] Type: ADM IN Attending Dr: Shahzad Gomez MD Ordering Provider: Yulia Jacob APRN Date of Service: 05/17/24 [facility] echo transthoracic: chest pain, murmur Copies to: LORRIE Contreras MD Height: 62 in Weight: 193 lb Performed By: CLAUDIA Christiansen BSA: 1.9 m2 BP: 152/78 mmHg HR: 75 Reason For Study: chest pain, murmur History: COVID, MA, HTN, Hyperlipidemia, Cancer, PCI, Family history: CAD, Former Smoker Interpretation Summary Moderate to severe concentric left ventricular hypertrophy. Ejection Fraction = 55-60%. The left atrium appears mildly dilated. Mild to moderate valvular aortic stenosis. There is trace mitral regurgitation. Small left pleural effusion. Procedure/Quality: A two-dimensional transthoracic echocardiogram with color flow and Doppler was performed. The study was technically fair in quality. Left Ventricle: The left ventricular size is normal. Moderate to severe concentric left ventricular hypertrophy. Ejection Fraction = 55-60%. No left ventricular thrombus or mass is seen. Left Atrium: The left atrium appears mildly dilated. The atrial septum appears normal. Right Atrium: The right atrium appears normal in size. Right Ventricle: The right ventricular size, thickness and function are normal. Aortic Valve: The aortic valve is moderately calcified. Mild to moderate valvular aortic stenosis. Mitral Valve: The mitral valve is mildly sclerotic. There is trace mitral regurgitation. Tricuspid Valve: The tricuspid valve is normal in structure and function. Pulmonic Valve: The pulmonic valve is not well visualized. Arteries: The aortic root is normal size. The aortic arch was visualized and no abnormalities were seen. Pericardium/Pleura: No pericardial effusion seen. Small left pleural effusion. IVC/Hepatic Veins: The IVC is normal in size with an inspiratory collapse of greater then 50%, suggesting normal right atrial pressure. Measurements with Normals IVSd: 1.8 cm (0.7-1.1 cm)LVIDd: 4.4 cm (3.7-5.4 cm) LVPWd: 1.4 cm (0.7-1.1 cm)LVIDs: 3.2 cm (2.3-3.6 cm) LA dimension: 4.1 cm (2.3-4.0 cm)Ao root diam: 3.0 cm(2.0-3.6 cm) asc Aorta Diam: 3.2 cm(2.1-3.4cm) Doppler with Normals LV V1 max: 102.2 cm/sec (0.7-1.7m/s)MV E max pablo: 128.0 cm/sec(0.8-1.3m/s) MV A max pablo: 158.5 cm/sec(0.0-0.0m/s) MV E/A: 0.81 (<1.5) MMode/2D Measurements Calculations RVDd: 3.3 cm FS: 26.9 % Ao root area: LVOT diam: 2.0 cm TAPSE: 2.4 cm EDV(Teich): 7.0 cm2 LVOT area: 3.0 cm2 RV S Pablo: 87.1 ml 16.1 cm/sec ESV(Teich): 41.2 ml EF(Teich): 52.7 % __ LVLd ap4: 8.5 cm SV(MOD-sp4): LAV(MOD-sp4): LA A2 area: 17.8 cm2 EDV(MOD-sp4): 63.5 ml 52.2 ml 104.0 ml LAV(MOD-sp2): LA A4 area: 18.8 cm2 LVLs ap4: 6.8 cm 51.9 ml LA length (vol): ESV(MOD-sp4): 5.1 cm 40.5 ml LA vol: 55.8 ml EF(MOD-sp4): 61.1 % LA vol index: 29.7 ml/m2 Doppler Measurements Calculations MV dec time: MV max PG: E/E' lat: 14.7 MV dec slope: 0.16 sec 135.0 mmHg E/E' med: 21.0 821.1 cm/sec2 __ Ao V2 max: LV V1 max PG: MR max pablo: 251.9 cm/sec 4.2 mmHg 579.9 cm/sec Ao max PG: LV V1 mean PG: MR max P.4 mmHg 2.2 mmHg 134.5 mmHg Ao mean PG: LV V1 mean: 15.4 mmHg 69.4 cm/sec Ao V2 mean: LV V1 VTI: 34.1 cm 189.5 cm/sec Ao V2 VTI: 64.6 cm FAIZAN(I,D): 1.6 cm2 FAIZAN(V,D): 1.2 cm2 ___ Transcribed By: SCV Performed At: 05/17/24 0917 Signed By: Devante Ibarra MD 05/17/24 1703 Normal [facility] Epithelial cells.squamous [# /area] in Urine sediment by Automated countOrdered By: Shahzad Gomez on 05-17-2024 Epithelial cells.squamous Auto (Urine sed) [#/Area] 5-9 [HPF] High 0-2 [facility] Erythrocytes [#/area] in Uri ne sediment by Automated countOrdered By: Shahzad Gomez on 05-17-2024 RBC Auto (Urine sed) [#/Area] 1-2 [HPF] 0-4 [facility] Glucose [Mass/volume] in Uri ne by Test stripOrdered By: Shahzad Gomez on 05-17-2024 Glucose Test strip (U) [Mass/Vol] Normal mg/dL Normal [facility] Hemoglobin Test strip Ql (U) Ordered By: Shahzad Gomez on 05-17-2024 Hemoglobin Ql (U) Negative Negative [facility] Hyaline casts [#/area] in Ur ine sediment by Automated countOrdered By: Shahzad Gomez on 05-17-2024 Hyaline casts Auto (Urine sed) [#/Area] 0-8 [LPF] 0-8 [facility] Ketones [Presence] in Urine by Test stripOrdered By: Shahzad Gomez on 05-17-2024 Ketones Ql (U) Trace High Negative [facility] Comment on above: Order Comment: Name Collection Type:: Clean-Voided Midstream Performed By: #### U CREA, CHETAN, ADDONUAPLUS #### [facility] [address] [place] [address] [place] Lactate [Moles/volume] in Se rum or PlasmaOrdered By: Shahzad Gomez on 05-17-2024 Lactate [Moles/Vol] 0.9 mmol/L Normal 0.5-2.2 [facility] Comment on above: Result Comment: PERF ORMED BY: [place] [address] PATHOLOGIST CLIENT SERVICE SUPERVISOR CUCA VOGT M.D. Performed By: #### B MP, LIPID, MG #### [facility] [address] [place] [address] [place] Leukocyte esterase [Presence ] in Urine by Test stripOrdered By: Shahzad Gomez on 05-17-2024 Leukocyte esterase Test strip Ql (U) Negative Normal Negative [facility] Comment on above: Order Comment: Name Collection Type:: Clean-Voided Midstream Performed By: #### U CREA, CHETAN, ADDONUAPLUS #### [facility] [address] [place] [address] [place] Leukocytes [#/area] in Urine sediment by Automated countOrdered By: Shahzad Gomez on 05-17-2024 WBC Auto (Urine sed) [#/Area] 1-2 [HPF] 0-4 [facility] Lipid Panelon 05-17-2024 LDL Cholesterol,Calculated 61 mg/dL Normal 0-100 [facility] Comment on above: Result Comment: LDL ATP III CLASSIFICATION LDL less than 100 mg/dL Optimal LDL 100-129 mg/dL Near or above optimal LDL 130-159 mg/dL Borderline high LDL 160-189 mg/dL High LDL greater than 189 mg/dL Very high Performed By: #### B MP, LIPID, MG #### [facility] [address] Triglyceride w/Reflex 106 mg/dL Normal 0-149 [facility] Comment on above: Result Comment: TRIG ATP III CLASSIFICATION TRIG less than 150 mg/dL Normal TRIG 150-199 mg/dL Borderline high TRIG 200-500 mg/dL High TRIG greater than 500 mg/dL Very high Standard traceable to the Center for Disease Conrtrol and Prevention (CDC) test method. Performed By: #### B MP, LIPID, MG #### [facility] [address] VLDL CHOLESTEROL 21 mg/dL Normal [facility] Comment on above: Performed By: #### B MP, LIPID, MG #### [facility] [address] Magnesium [Mass/volume] in S jocelyn or PlasmaOrdered By: Yulia Jacob on 05-17-2024 Magnesium [Mass/Vol] 1.6 mg/dL Low 1.9-2.7 [facility] Comment on above: Performed By: #### B MP, LIPID, MG #### [facility] [address] Mucus [Presence] in Urine by AutomatedOrdered By: Shahzad Gomez on 05-17-2024 Mucus Auto Ql (U) Rare [LPF] [facility] Nitrite Test strip Ql (U)Ord ered By: Shahzad Gomez on 05-17-2024 Nitrite Ql (U) Negative Negative [facility] No Panel InformationOrdered By: Shahzad Gomze on 05-17-2024 Blood Gas Critical Value See comment [facility] Comment on above: Critical Value valentin d on: 05/17/2024 at 11:16 Blood Gas Sample Site Venous Fir [facility] FiO2 21 % [facility] Venous Blood Base Excess -10.8 mmol/L Low -3.0-3.0 [facility] Venous Blood Oxygen Content 6.4 mmol/L Low 6.6-9.7 [facility] Venous Blood Oxygen Saturation 91.2 % High 73.0-76.0 [facility] Venous Blood Partial Pressure CO2 32.5 mm[Hg] Low 38.0-50.0 [facility] Venous Blood Partial Pressure O2 62.5 mm[Hg] High 35.0-45.0 [facility] Venous Blood pH 7.28 Low 7.32-7.43 [facility] Protein [Mass/volume] in Uri ne by Test stripOrdered By: Shahzad Gomez on 05-17-2024 Protein (U) [Mass/Vol] 30 mg/dL High Negative [facility] Comment on above: Order Comment: Name Collection Type:: Clean-Voided Midstream Performed By: #### U CREA, CHETAN, ADDONUAPLUS #### [facility] [address] Serum or plasma high density lipoprotein (HDL) cholesterol measurementOrdered By: Yulia Jacob on 05-17-2024 Cholesterol in HDL [Mass/Vol] 29 mg/dL Normal 23-92 [facility] Comment on above: HDL CHOL ATP-III CLA SSIFICATION Cardiovascular RiskHDL > or equal to 60 mg/dL LOWHDL < 40 mg/dL HIGH Result Comment: HDL CHOL ATP-III CLASSIFICATION Cardiovascular Risk HDL > or equal to 60 mg/dL LOW HDL < 40 mg/dL HIGH Performed By: #### B MP, LIPID, MG #### [facility] [address] Serum or plasma total choles terol/high density lipoprotein (HDL) cholesterol mass ratOrdered By: Yulia Jacob on 05-17-2024 Cholesterol.total/Chol esterol in HDL [Mass ratio] 3.8 {ratio} Normal <5.0 [facility] Comment on above: Result Comment: PERF ORMED BY: [place] [address] PATHOLOGIST CLIENT SERVICE SUPERVISOR CUCA VOGT M.D. Performed By: #### B MP, LIPID, MG #### [facility] [address] Sodium [Moles/volume] in Uri neOrdered By: Shahzad Marrufoomanoni on 05-17-2024 Sodium (U) [Moles/Vol] 109 mmol/L Normal [facility] Comment on above: No reference range e stablished Result Comment: No r eference range established PERFORMED BY: [place] [address] PATHOLOGIST CLIENT SERVICE SUPERVISOR CUCA VOGT M.D. Performed By: #### U CREA, CHETAN, ADDONUAPLUS #### [facility] [address] [place] [address] Specific gravity Test strip (U) [Rel density]Ordered By: Objeyson Marrufoomar on 05-17-2024 Specific gravity (U) [Rel density] 1.022 1.001-1.03 0 [facility] Triglyceride [Mass/volume] i n Serum or PlasmaOrdered By: Yulia Jacob on 05-17-2024 Triglyceride [Mass/Vol] 106 mg/dL 0-149 [facility] Comment on above: TRIG ATP III CLASSIF ICATIONTRIG less than 150 mg/dL NormalTRIG 150-199 mg/dL Borderline highTRIG 200-500 mg/dL High TRIG greater than 500 mg/dL Very highStandard traceable to the Center for Disease Conrtrol and Prevention (CDC) test method. Troponin I High Sensitivityo n 05-17-2024 Troponin I High Sensitivity 37.7 pg/mL High 0.0-15.0 [facility] Comment on above: Order Comment: DRAW AT 0830 WITH HER OTHER LAB Result Comment: PERF ORMED BY: [place] [address] PATHOLOGIST CLIENT SERVICE SUPERVISOR CUCA VOGT M.D. Performed By: #### B MP, LIPID, MG #### [facility] [address] [place], [place] [id number] [facility] Troponin I High Sensitivity 37.5 pg/mL High 0.0-15.0 [facility] Comment on above: Result Comment: PERF ORMED BY: [place] [address] PATHOLOGIST CLIENT SERVICE SUPERVISOR JIANLAN SUN M.D. Performed By: #### B MP, LIPID, MG #### [facility] [address] [place] [address] Troponin I High Sensitivity 36.5 pg/mL High 0.0-15.0 [facility] Comment on above: Result Comment: PERF ORMED BY: [place] [address] PATHOLOGIST CLIENT SERVICE SUPERVISOR CUCA VOGT M.D. Performed By: #### H S TROP #### [address] Troponin I.cardiac [Mass/vol ume] in Serum or Plasma by Detection limit <= 0.01 ng/Ordered By: Yulia Jacob on 05-17-2024 Troponin I.cardiac DL <= 0.01 ng/mL [Mass/Vol] 37.7 pg/mL High 0.0-15.0 [facility] US renal BIon 05-17-2024 US renal BI [facility] [place] [address] Ultrasound Report Signed Patient: Kusum Huerta MR#: [id number] [birth year] : 1950 Acct:[id number] Age/Sex: 74 / F ADM Date: 05/16/24 Loc: Room: [address] [place] [address] Type: ADM IN Attending Dr: Shahzad Gomez MD Ordering Provider: Elayne Stoddard MD Date of Service: 05/17/24 US/ renal BI: SHANKAR Copies to: MD Shahzad Benton MD US renal BI 05/17/2024 2:08 PM SIGNS AND SYMPTOMS: SHANKAR COMPARISON: None. FINDINGS: Right kidney measures 9.76 cm x 3.77 cm x 4.59 cm . There is no hydronephrosis or mass. Left kidney measures 12.36 cm x 4.33 cm x 4.51 cm . There is no hydronephrosis or mass. There is an anechoic cyst measuring up to 3.5 cm. The urinary bladder is morphologically normal. No free fluid is seen in the pelvis. Before voiding, the bladder measures 9.25 cm x 8.27 cm x 9.27 cm , which corresponds to an estimated volume of 371.30 mL . US/US renal BI IMPRESSION: No hydronephrosis or mass. There is an anechoic cyst on the left measuring up to 3.5 cm in greatest dimension. Impression dictated by: Yaw Deluca M.D.05/17/2024 7:28 PM Dictation Location: [place] [address] Tech: Claudia Davies Transcribed By: CHELE 05/17/241927 Dictated By: Yaw Deluca II, MD 05/17/241926 Signed By: 05/17/241927 Normal [facility] Urine appearanceOrdered By: Shahzad Gomez on 05-17-2024 Appearance (U) Clear Normal Clear [facility] Comment on above: Order Comment: Name Collection Type:: Clean-Voided Midstream Performed By: #### U CREA, CHETAN, ADDONUAPLUS #### [address] Urobilinogen Test strip (U) [Mass/Vol]Ordered By: Shahzad Gomez on 05-17-2024 Urobilinogen (U) [Mass/Vol] Normal mg/dL Normal [facility] Venous Blood GasOrdered By: Shahzad Gomez on 05-17-2024 CO2 [Moles/Vol] 15.9 mmol/L Low 24.0-29.0 [facility] Comment on above: Performed By: #### V BG #### Point of Care testing , HCO3 (Bld) [Moles/Vol] 14.9 mmol/L Low 23.0-29.0 [facility] Comment on above: Performed By: #### V BG #### Point of Care testing , Venous Blood Gason Respiratory Critical Normal [facility] Comment on above: Result Comment: Crit ical Value called on: 05/17/2024 at 11:16 PERFORMED BY: [place] [address] PATHOLOGIST CLIENT SERVICE SUPERVISOR CUCA VOGT M.D. Performed By: #### V BG #### Point of Care testing , VBG Base Excess -10.8 mmol/L Low -3.0-3.0 [facility] Comment on above: Performed By: #### V BG #### Point of Care testing , VBG Draw Site Venous Normal [facility] Comment on above: Performed By: #### V BG #### Point of Care testing , VBG Frac Inspired O2 21 % Normal [facility] Comment on above: Performed By: #### V BG #### Point of Care testing , VBG O2 Content 6.4 mmol/L Low 6.6-9.7 [facility] Comment on above: Performed By: #### V BG #### Point of Care testing , VBG Oxygen Saturation 91.2 % Off scale high 73.0-76.0 [facility] Comment on above: Performed By: #### V BG #### Point of Care testing , VBG PCO2 32.5 mm[Hg] Low 38.0-50.0 [facility] Comment on above: Performed By: #### V BG #### Point of Care testing , VBG PH Venous PH 7.28 Low 7.32-7.43 [facility] Comment on above: Performed By: #### V BG #### Point of Care testing , VBG PO2 62.5 mm[Hg] High 35.0-45.0 [facility] Comment on above: Performed By: #### V BG #### Point of Care testing , pH of Urine by Test stripOrd ered By: Shahzad Gomez on 05-17-2024 pH (U) 5.5 [pH] Normal 5.0-9.0 [facility] Comment on above: Order Comment: Name Collection Type:: Clean-Voided Midstream Performed By: #### U CHETAN OSORIO, ROBERTO CARLOSUAPLUS #### [address] Troponin I High Sensitivityo n 05-16-2024 Troponin I High Sensitivity 35.5 pg/mL High 0.0-15.0 [facility] Comment on above: Result Comment: PERF ORMED BY: [place] [address] PATHOLOGIST CLIENT SERVICE SUPERVISOR CUCA VOGT M.D. Performed By: #### B MP, LIPID, MG #### [place] [id number] [facility] Activated partial thrombopla stin time (aPTT) in platelet poor plasma by coagulation aOrdered By: Mary Espana on 01-06-2024 aPTT Coag (PPP) [Time] 24.6 s 25.1-36.5 [facility] Comment on above: A hematocrit value g reater than 55% may lead to inaccurate results in coagulation testing. Patients having hematocrit values >55% require a special collection tube for coagulation studies. Please contact the laboratory at [phone] guided bone marrow bx/asp iron 01-06-2024 CT guided bone marrow bx/aspir [facility] [place] [address] [place], [place] [id number] CT Scan Report Signed Patient: Kusum Huerta MR#: [id number] 01 : 1950 Acct:[id number] Age/Sex: 73 / F ADM Date: 01/06/24 Loc: CT Room: Type: [facility] Attending Dr: Mary Espana MD Copies [...] Yaw Deluca M.D.01/06/2024 2:06 PM Dictation Location: [place] [address] Transcribed By: [facility] 01/06/24 140 Dictated By: Yaw Deluca II, MD 01/06/24 1401 Signed By: 01/06/24 140 Normal [facility] Coagulation Profileon 2023 aPTT Coag (Bld) [Time] 24.6 s Low 25.1-36.5 [facility] Comment on above: Order Comment: STAT FOR BX Result Comment: A he matocrit value greater than 55% may lead to inaccurate results in coagulation testing. Patients having hematocrit values >55% require a special collection tube for coagulation studies. Please contact the laboratory at [phone] for redraw instructions. PERFORMED BY: [place] [address] PATHOLOGIST CLIENT SERVICE SUPERVISOR CUCA VOGT M.D. Performed By: #### B MP, LIPID, MG #### [facility] [address] [place] [address] Complete Blood Count Auto Di ffon 01-06-2024 Basophils (Bld) [#/Vol] 0.0 10*3/uL Normal 0.0-0.2 [facility] Comment on above: Order Comment: STAT FOR BX Result Comment: PERF ORMED BY: [place] [address] PATHOLOGIST CLIENT SERVICE SUPERVISOR CUCA VOGT M.D. Performed By: #### B MP, LIPID, MG #### [address] Basophils/100 WBC (Bld) 0.1 % Normal . [facility] Comment on above: Order Comment: STAT FOR BX Performed By: #### B MP, LIPID, MG #### [address] Eosinophils (Bld) [#/Vol] 0.0 10*3/uL Normal 0.0-0.45 [facility] Comment on above: Order Comment: STAT FOR BX Performed By: #### B MP, LIPID, MG #### [place] [address] [place] Eosinophils/100 WBC (Bld) 0.4 % Normal . [facility] Comment on above: Order Comment: STAT FOR BX Performed By: #### B MP, LIPID, MG #### [address] Erythrocyte distribution width (RBC) [Ratio] 17.3 % High 11.9-15.3 [facility] Comment on above: Order Comment: STAT FOR BX Performed By: #### B MP, LIPID, MG #### [address] Hematocrit (Bld) [Volume fraction] 33.3 % Low 34.0-46.4 [facility] Comment on above: Order Comment: STAT FOR BX Performed By: #### B MP, LIPID, MG #### [address] Hemoglobin (Bld) [Mass/Vol] 10.4 g/dL Low 11.8-15.4 [facility] Comment on above: Order Comment: STAT FOR BX Performed By: #### B MP, LIPID, MG #### [place] [address] [place] Lymphocytes (Bld) [#/Vol] 0.7 10*3/uL Low 1.00-4.8 [facility] Comment on above: Order Comment: STAT FOR BX Performed By: #### B MP, LIPID, MG #### [address] Lymphocytes/100 WBC (Bld) 10.7 % Normal . [facility] Comment on above: Order Comment: STAT FOR BX Performed By: #### B MP, LIPID, MG #### [address] MCH (RBC) [Entitic mass] 26.6 pg Normal 24.7-34.3 [facility] Comment on above: Order Comment: STAT FOR BX Performed By: #### B MP, LIPID, MG #### [address] MCV (RBC) [Entitic vol] 85.0 fL Normal 80-100 [facility] Comment on above: Order Comment: STAT FOR BX Performed By: #### B MP, LIPID, MG #### [address] Mean Corpuscular HGB Conc 31.3 g/dL Low 32.0-35.0 [facility] Comment on above: Order Comment: STAT FOR BX Performed By: #### B MP, LIPID, MG #### [address] Monocytes (Bld) [#/Vol] 0.7 10*3/uL Normal 0.0-0.8 [facility] Comment on above: Order Comment: STAT FOR BX Performed By: #### B MP, LIPID, MG #### [address] Monocytes/100 WBC (Bld) 9.4 % Normal . [facility] Comment on above: Order Comment: STAT FOR BX Performed By: #### B MP, LIPID, MG #### [address] Neutrophils (Bld) [#/Vol] 5.5 10*3/uL Normal 1.8-7.7 [facility] Comment on above: Order Comment: STAT FOR BX Performed By: #### B MP, LIPID, MG #### [address] Neutrophils/100 WBC (Bld) 79.4 % Normal . [facility] Comment on above: Order Comment: STAT FOR BX Performed By: #### B MP, LIPID, MG #### [facility] [address] NRBC% 0.1 /100{WBC} Normal 0-0.5 [facility] Comment on above: Order Comment: STAT FOR BX Performed By: #### B MP, LIPID, MG #### [facility] [address] Platelet mean volume (Bld) [Entitic vol] 7.7 fL Normal 6.3-10.7 [facility] Comment on above: Order Comment: STAT FOR BX Performed By: #### B MP, LIPID, MG #### [facility] [address] RBC (Bld) [#/Vol] 3.92 10*6/uL Normal 3.60-5.00 [facility] Comment on above: Order Comment: STAT FOR BX Performed By: #### B MP, LIPID, MG #### [facility] [address] WBC (Bld) [#/Vol] 6.9 10*3/uL Normal 3.8-11.6 [facility] Comment on above: Order Comment: STAT FOR BX Performed By: #### B MP, LIPID, MG #### [facility] [address] INR in Platelet poor plasma by Coagulation assayOrdered By: Mary Espana on 01-06-2024 INR Coag (PPP) [Relative time] 0.9 {INR} Normal [facility] Comment on above: INR Therapeutic Rang [...] with mechanical heart valves: 3 - 4.5 Order Comment: STAT FOR BX Result Comment: [...] valves: 3 - 4.5 Performed By: #### B MP, LIPID, MG #### [facility] [address] [place] [id number] [facility] Murphy 01-06-2024 L Specimen: [id number] Received: 01/06/24 Status: KENNEDY Castillo Num: [id number] Spec Type: Bone Marro Subm Dr: Yaw Deluca II, MD Tissues: A Bone Marrow Aspirate (Clot) (CLOT) B Bone Marrow Biopsy/Core (BONE) Procedures: Reticulum I, Peripheral Smr, PAS - LGRN/2, Iron/4, HE/4, Gross/Micro L4/2, Bm Smear/2, CD138/2, CD20, CD3, CD31, CD34/2, CD68, E CADHERIN, Decalcification, PAS - Hemat/2, Bone Marrow TP, GIEMSA STN/5 Age/ Patient Sex Location Account Attending Physician Kusum Heurta F 73/F CT [id number] Mary Espana MD SPEC NUM: [id number] RECD: 01/06/24 STATUS: KENNEDY CASTILLO NUM: [id number] HAZEL: 01/06/24 DR: Yaw Deluca II, MD ENTERED: 01/06/[address] [facility] [address]: Mary Espana MD SPEC TYPE: Bone Marro DEPT: ENTERED BY: [id number] RECV BY: [id number] ORDERED: Reticulum I, Peripheral Smr, PAS - LGRN/2, Iron/4, HE/4, Gross/Micro L4/2, Bm Smear/2, CD138/2, CD20, CD3, CD31, CD34/2, CD68, E CADHERIN, Decalcification, PAS - Hemat/2, Bone Marrow TP, GIEMSA STN/5 ORDERED: Reticulum I, Peripheral Smr, PAS - LGRN/2, Iron/4, HE/4, Gross/Micro L4/2, Bm Smear/2, CD138/2, CD20, CD3, CD31, CD34/2, CD68, E CADHERIN, USS/12, Decalcification, PAS - Hemat/2, Bone Marrow TP, GIEMSA STN/5 Pathological Diagnosis A and B, left iliac crest bone marrow biopsy and aspirate: - Normocellular marrow for the age (about 30%) - Apparent normal and moderate granulocytic predominance with adequate granulocytic maturation - Adequate presence of erythroid precursors population with some normoblastic maturation - Some preserved functioning megakaryocytes, but also with suggested ineffective or inefficient megakaryocytopoiesis, due to the occasional scattered late or end-stage megakaryocytes in both aspirate smears and the clot section - Some preserved iron storage, at least score 1/4 - No myelodysplastic features or increased blast Specimen: [id number] Received: 01/06/24 Status: KENNEDY Castillo Num: [id number] Spec Type: Bone Marro Subm Dr: Yaw Deluca II, MD Tissues: A Bone Marrow Aspirate (Clot) (CLOT) B Bone Marrow Biopsy/Core (BONE) Procedures: Reticulum I, Peripheral Smr, PAS - LGRN/2, Iron/4, HE/4, Gross/Micro L4/2, Bm Smear/2, CD138/2, CD20, CD3, CD31, CD34/2, CD68, E CADHERIN, Decalcification, PAS - Hemat/2, Bone Marrow TP, GIEMSA STN/ Patient: BradleyKusum [id number] (Continued) Specimen: [id number] Received: 01/06/24 (Continued) Pathological Diagnosis (Continued) Signed (signature on file) Timo Mccallum MD 01/17/241930 Specimen: [id number] Received: 01/06/24 Status: KENNEDY Castillo Num: [id number] Spec Type: Bone Marro Subm Dr: Yaw Deluca, IIMD Tissues: A Bone Marrow Aspirate (Clot) (CLOT) B Bone Marrow Biopsy/Core (BONE) Procedures: Reticulum I, Peripheral Smr, PAS - LGRN/2, Iron/4, HE/4, Gross/Micro L4/2, Bm Smear/2, CD138/2, CD20, CD3, CD31, CD34/2, CD68, E CADHERIN, Decalcification, PAS - Hemat/2, Bone Marrow TP, GIEMSA STN/5 Patient: Kusum Huerta [id number] (Continued) Specimen: [id number] Received: 01/06/24-1311 (Continued) Pathological Diagnosis (Continued) - No obvious lymphoplasmacytic disorder Note 1: - The diagnosis of the concurrent flow cytometric analysis is left shifted myeloid maturation pattern - The FISH analysis of the standard MDS panel is normal - The cytogenetics study is normal female karyotype : 46, XX[20] Note 2: - The cause of mild anemia is most likely multifactorial etiology in this case, including iron deficiency type anemia (evidence of mild or borderline microcytic anemia for a few years), anemia of chronic renal disease (mild chronic renal insufficiency with mildly elevated serum Cr for a few years), and possible occult or subclinical heart failure, therefore also anemia of chronic disease type - The cause of the mild thrombocytopenia is a fairly newly onset event (normal platelet levels before 2021), and may also suggest multifactorial etiology, including peripheral sequestration (renal insufficiency or heart failure related fluid retention), and potentially reduced production of erythropoietin due to renal insufficiency and therefore reduced contribution of thrombopoietin effect by erythropoietin, possible senile aging biologic effect and ineffective megakaryopoiesis, and possibly als (more content not included)... Normal [facility] Platelets [#/volume] in Bloo d by Automated countOrdered By: Mary Espana on 01-06-2024 Platelets (Bld) [#/Vol] 136 10*3/uL Low 150-450 [facility] Comment on above: Order Comment: STAT FOR BX Result Comment: PERF ORMED BY: [place] [address] PATHOLOGIST CLIENT SERVICE SUPERVISOR CUCA VOGT M.D. Performed By: #### B MP, LIPID, MG #### [address] Prothrombin time (PT)Ordered By: Mary Espana on 01-06-2024 PT Coag (PPP) [Time] 10.4 s Normal 9.0-12.9 [facility] Comment on above: A hematocrit value g reater than 55% may lead to inaccurate results in coagulation testing. Patients having hematocrit values >55% require a special collection tube for coagulation studies. Please contact the laboratory at [phone] for redraw instructions. Order Comment: STAT FOR BX Result Comment: A he matocrit value greater than 55% may lead to inaccurate results in coagulation testing. Patients having hematocrit values >55% require a special collection tube for coagulation studies. Please contact the laboratory at [phone] for redraw instructions. Performed By: #### B MP, LIPID, MG #### [facility] [address] [id number] [facility] Multiple labsOrdered By: Maureen Eckert on 11-23-2023 [employer] Height or Weight NOT Doneon 08-20-2023 Adult depression screening assessment No [facility] 600 DO Work Phone: Fall risk assessment a) No falls within the last year [facility] [employer] 600 DO Work Phone: Office Visit (Cardiology)on 08-20-2023 Follow-up visit Diagnoses/Problems Assessed Mixed hyperlipidemia (272.2) (E78.2) Essential hypertension (401.9) (I10) Atherosclerosis of [place] coronary artery without angina pectoris (414.01) (I25.10) Status post angioplasty (V45.89) (Z98.62) Shortness of breath (786.05) (R06.02) Former smoker (V15.82) (Z87.891) Quit 1993 Orders Atherosclerosis of [place] coronary artery without angina pectoris, Status post [...] negative for complaint. Vitals Vital Signs Recorded: [id number] 11:08AM Heart Rate70, L Radial Yrylmpal121, LUE, Sitting [id number], LUE, Sitting Height5 ft 3 in Height [...] eye . (more content not included)... Normal [employer] XR KNEE LT 4V or >on 023 [...] CHARLEY LUCAS Date: 2022-12-27 15:51 Normal [facility] XR RIBS LT PA [...] calcified granuloma in the right lung base. [place] screws noted in the right humeral head. IMPRESSION: 1. No acute rib fracture identified. 2. No acute cardiopulmonary process. Electronically authenticated by: MARLON METCALF Date: 2022-12-27 15:50 Normal [facility] Tobacco Screening.on 022 Adult depression screening assessment No [facility] 250 DO Work Phone: Fall risk assessment a) No falls within the last year [facility] 250 DO Work Phone: Tobacco use status [facility] b) No [facility] 250 DO Work Phone: COVID Quick Testingon 2020 Result Positive [employer] Other Automated blood platelet cou nt (count/volume)on 03-04-2021 Platelets (Bld) [#/Vol] 249 10*3/uL 150-450 [facility] Automated blood platelet oracio n volume measurementon 03-04-2021 Platelet mean volume (Bld) [Entitic vol] 8.2 fL 6.3-10.7 [facility] Automated erythrocyte distri bution width ratioon 03-04-2021 Erythrocyte distribution width (RBC) [Ratio] 17.4 % 11.9-15.3 [facility] Automated erythrocyte mean c orpuscular hemoglobin (mass per erythrocyte)on 03-04-2021 MCH (RBC) [Entitic mass] 27.2 pg 24.7-34.3 [facility] Automated erythrocyte mean c orpuscular hemoglobin concentration measurement (mass/volon 03-04-2021 MCHC (RBC) [Mass/Vol] 32.7 g/dL 32.0-35.0 [facility] Automated erythrocyte mean c orpuscular volumeon 03-04-2021 MCV (RBC) [Entitic vol] 83.2 fL 80-100 [facility] Blood erythrocytes automated count (number/volume)on 03-04-2021 RBC (Bld) [#/Vol] 3.83 10*6/uL 3.60-5.00 [facility] Blood hemoglobin measurement (mass/volume)on 03-04-2021 Hemoglobin (Bld) [Mass/Vol] 10.4 g/dL 11.8-15.4 [facility] Blood leukocytes automated c ount (number/volume)on 03-04-2021 WBC (Bld) [#/Vol] 9.9 10*3/uL 3.8-11.6 [facility] Body fluid albumin measureme nt (mass/volume)on 03-04-2021 Albumin (Body fld) [Mass/Vol] 3.6 g/dL 3.2-5.5 [facility] Estimated glomerular filtrat ion rate (GFR) non- Americanon 03-04-2021 GFR/1.73 sq M predicted among non-blacks MDRD (S/P/Bld) [Vol rate/Area] 27 mL/Min [facility] Hematocrit [Volume Fraction] of Blood by Automated counton 03-04-2021 Hematocrit (Bld) [Volume fraction] 31.9 % 34.0-46.4 [facility] Otheron 03-04-2021 GFR/1.73 sq M.predicted MDRD (S/P/Bld) [Vol rate/Area] 33 mL/Min [facility] Comment on above: GFR estimated refere nce range: According to KDOQI guidelines, <60 ml/min/1.73m2 is sufficient to diagnose a patient with chronic kidney disease. Pharmacy Creatinine Clearance (Chem N/A [facility] Protein [Mass/volume] in Ser um or Plasmaon 03-04-2021 Protein [Mass/Vol] 6.6 g/dL 6.1-7.9 [facility] Serum globulin measurement b y calculation (mass/volume)on 03-04-2021 Globulin (S) [Mass/Vol] 3.0 g/dL [facility] Serum or plasma alanine fleming otransferase measurement without P-5'-P (enzymatic activion 03-04-2021 ALT No additional P-5'-P [Catalytic activity/Vol] 12 U/L 10-60 [facility] Serum or plasma albumin/glob ulin mass ratioon 03-04-2021 Albumin/Globulin [Mass ratio] 1.2 {ratio} [facility] Serum or plasma alkaline greyson sphatase measurement (enzymatic activity/volume)on 03-04-2021 ALP [Catalytic activity/Vol] 155 U/L 32-92 [facility] Serum or plasma aspartate am inotransferase measurement (enzymatic activity/volume)on 03-04-2021 AST [Catalytic activity/Vol] 12 U/L 10-42 [facility] Serum or plasma calcium terence urement (mass/volume)on 03-04-2021 Calcium [Mass/Vol] 8.8 mg/dL 8.2-10.2 [facility] Serum or plasma chloride oracio surement (moles/volume)on 03-04-2021 Chloride [Moles/Vol] 104 mmol/L 95-114 [facility] Serum or plasma creatinine m easurement with calculation of estimated glomerular filtron 03-04-2021 Creatinine [Mass/Vol] 1.82 mg/dL 0.44-1.03 [facility] Serum or plasma glucose terence urement (mass/volume)on 03-04-2021 Glucose [Mass/Vol] 109 mg/dL 70-100 [facility] Comment on above: ADA recommended refe rence rangeRandom Glucose Reference Range is dependent on time and content of last meal. Glucose of more than 200 mg/dL in a nonstressed, ambulatory subject supports the diagnosis of Diabetes Mellitus. Serum or plasma potassium me asurement (moles/volume)on 03-04-2021 Potassium [Moles/Vol] 5.6 mmol/L 3.5-5.1 [facility] Serum or plasma sodium measu rement (moles/volume)on 03-04-2021 Sodium [Moles/Vol] 135 mmol/L 136-146 [facility] Serum or plasma total biliru bin measurement (mass/volume)on 03-04-2021 Bilirubin [Mass/Vol] 1.0 mg/dL 0.3-1.2 [facility] Serum or plasma total carbon dioxide measurement (moles/volume)on 03-04-2021 CO2 [Moles/Vol] 23.9 mmol/L 22.0-30.0 [facility] Serum or plasma urea nitroge n measurement (mass/volume)on 03-04-2021 Urea nitrogen [Mass/Vol] 37 mg/dL 08-15 [facility] Vital Signs Date Time Vital Sign Value Performing Clinician Facility 05-22-2024 08:00-0400 Body temperature 98.1 [degF] MD Shaikh Serna Work Phone: [facility] 05-22-2024 08:00-0400 Diastolic blood pressure 77 mm[Hg] MD Shaikh Serna Work Phone: [facility] 05-22-2024 08:00-0400 Heart rate 78 /min MD Shaikh Serna Work Phone: [facility] 05-22-2024 08:00-0400 Respiratory rate 16 /min MD Shaikh Serna Work Phone: [facility] 05-22-2024 08:00-0400 SaO2% (BldA) [Mass fraction] 95 % MD Shaikh Serna Work Phone: [facility] 05-22-2024 08:00-0400 Systolic blood pressure 148 mm[Hg] MD Shaikh Serna Work Phone: [facility] 05-21-2024 06:00-0400 Body weight 80 kg MD Shaikh Serna Work Phone: [facility] 05-20-2024 20:35-0400 Body height 160.02 cm MD Shaikh Serna Work Phone: [facility] 05-20-2024 19:30-0400 Diastolic blood pressure 70 mm[Hg] MD Shaikh Serna Work Phone: [facility] 05-20-2024 19:30-0400 Heart rate 76 /min MD Shaikh Serna Work Phone: [facility] 05-20-2024 19:30-0400 SaO2% (BldA) [Mass fraction] 95 % MD Shaikh Serna Work Phone: [facility] 05-20-2024 19:30-0400 Systolic blood pressure 150 mm[Hg] MD Shaikh Serna Work Phone: [facility] 05-20-2024 18:35-0400 Respiratory rate 20 /min MD Shaikh Serna Work Phone: [facility] 05-20-2024 16:37-0400 Body temperature 98.3 [degF] MD Shaikh Serna Work Phone: [facility] 05-20-2024 16:34-0400 Body height 160.02 cm MD Shaikh Serna Work Phone: [facility] 05-20-2024 16:34-0400 Body weight 84.1 kg MD Shaikh Serna Work Phone: [facility] 05-18-2024 11:09-0400 Diastolic blood pressure 81 mm[Hg] MD Shaikh Serna Work Phone: [facility] 05-18-2024 11:09-0400 Heart rate 70 /min MD Shaikh Serna Work Phone: [facility] 05-18-2024 11:09-0400 Respiratory rate 18 /min MD Shaikh Serna Work Phone: [facility] 05-18-2024 11:09-0400 SaO2% (BldA) [Mass fraction] 96 % MD Shaikh Serna Work Phone: [facility] 05-18-2024 11:09-0400 Systolic blood pressure 179 mm[Hg] MD Shaikh Serna Work Phone: [facility] 05-18-2024 08:00-0400 Body temperature 98.5 [degF] MD Shaikh Serna Work Phone: [facility] 05-18-2024 04:26-0400 Body weight 88.3 kg MD Shaikh Serna Work Phone: [facility] 05-16-2024 20:50-0400 Body height 157.48 cm MD Shaikh Serna Work Phone: [facility] 05-04-2024 09:36-0400 Body height 157.[address] [facility] 05-04-2024 09:36-0400 Body mass index (BMI) [Ratio] 33.5 kg/m2 [facility] 05-04-2024 09:36-0400 Body temperature 97.5 [degF] [facility] 05-04-2024 09:36-0400 Body weight [address] [facility] 05-04-2024 09:36-0400 Diastolic blood pressure 85 mm[Hg] [facility] 05-04-2024 09:36-0400 Heart rate 65 /min [facility] 05-04-2024 09:36-0400 Respiratory rate 16 /min [facility] 05-04-2024 09:36-0400 SaO2% (BldA) [Mass fraction] 100 % [facility] 05-04-2024 09:36-0400 Systolic blood pressure 160 mm[Hg] [facility] 02-12-2024 18:27-0400 Body mass index (BMI) [Ratio] 33.39 kg/m2 Josr Furlong DO Work Phone: [facility] 02-12-2024 18:27-0400 Body weight 85.5 kg Josr Furlong DO Work Phone: [facility] 02-12-2024 18:27-0400 Diastolic blood pressure 78 mm[Hg] Josr Furlong DO Work Phone: [facility] 02-12-2024 18:27-0400 Heart rate 76 /min Josr Furlong DO Work Phone: [facility] 02-12-2024 18:27-0400 Systolic blood pressure 138 mm[Hg] Josr Furlong DO Work Phone: [facility] 02-09-2024 12:10-0400 Body mass index (BMI) [Ratio] 33.18 kg/m2 Josr Furlong DO Work Phone: [facility] 02-09-2024 12:10-0400 Body temperature 97.7 [degF] Josr Furlong DO Work Phone: [facility] 02-09-2024 12:10-0400 Body weight 84.96 kg Josr Furlong DO Work Phone: [facility] 02-09-2024 12:10-0400 Diastolic blood pressure 66 mm[Hg] Josr Furlong DO Work Phone: [facility] 02-09-2024 12:10-0400 Heart rate 82 /min Josr Furlong DO Work Phone: [facility] 02-09-2024 12:10-0400 Respiratory rate 18 /min Josr Furlong DO Work Phone: [facility] 02-09-2024 12:10-0400 SaO2% (BldA) [Mass fraction] 99 % Josr Furlong DO Work Phone: [facility] 02-09-2024 12:10-0400 Systolic blood pressure 117 mm[Hg] Josr Furlong DO Work Phone: [facility] 01-29-2024 17:52-0500 Body height 160 cm Josr Furlong DO Work Phone: [facility] 01-29-2024 17:52-0500 Body mass index (BMI) [Ratio] 34.56 kg/m2 Josr Furlong DO Work Phone: [facility] 01-29-2024 17:52-0500 Body temperature 98.49 [degF] Josr Furlong DO Work Phone: [facility] 01-29-2024 17:52-0500 Body weight 88.5 kg Josr Furlong DO Work Phone: [facility] 01-29-2024 17:52-0500 Diastolic blood pressure 65 mm[Hg] Josr Furlong DO Work Phone: [facility] 01-29-2024 17:52-0500 Heart rate 63 /min Josr Graematterlong DO Work Phone: [facility] 01-29-2024 17:52-0500 Respiratory rate 18 /min Josr Graematterlong DO Work Phone: [facility] 01-29-2024 17:52-0500 SaO2% (BldA) [Mass fraction] 98 % Josr Furlong DO Work Phone: [facility] 01-29-2024 17:52-0500 Systolic blood pressure 133 mm[Hg] Josr Furlong DO Work Phone: [facility] 01-06-2024 11:41-0500 Diastolic blood pressure 73 mm[Hg] MD Shaikh Serna Work Phone: [facility] 01-06-2024 11:41-0500 Heart rate 92 /min MD Shaikh Serna Work Phone: [facility] 01-06-2024 11:41-0500 Respiratory rate 16 /min MD Shaikh Serna Work Phone: [facility] 01-06-2024 11:41-0500 SaO2% (BldA) [Mass fraction] 97 % MD Shaikh Serna Work Phone: [facility] 01-06-2024 11:41-0500 Systolic blood pressure 152 mm[Hg] MD Shaikh Serna Work Phone: [facility] 01-06-2024 10:00-0500 Body height 157.48 cm MD Shaikh Serna Work Phone: [facility] 01-06-2024 10:00-0500 Body weight 86.18 kg MD Shaikh Serna Work Phone: [facility] 08-20-2023 11:08-0400 Body height 160.02 cm Anna ePreira Work Phone: [facility] [employer] 600 DO Work Phone: 08-20-2023 11:08-0400 Body mass index (BMI) [Ratio] Medical Reason Not Done Anna Pereira Work Phone: [facility] 600 DO Work Phone: 08-20-2023 11:08-0400 Diastolic blood pressure 52 mm[Hg] Anna Jasso De Witt Work Phone: [facility] 600 DO Work Phone: 08-20-2023 11:08-0400 Heart rate 70 /min Anna Jasso De Witt Work Phone: [facility] 600 DO Work Phone: 08-20-2023 11:08-0400 Systolic blood pressure 110 mm[Hg] Anna Jasso De Witt Work Phone: [facility] 600 DO Work Phone: 04-30-2022 10:57-0400 Body height 160.02 cm Anna Jasso De Witt Work Phone: [facility] 250 DO Work Phone: 04-30-2022 10:57-0400 Body mass index (BMI) [Ratio] 36.67 kg/m2 Anna Pereira Work Phone: [facility] 250 DO Work Phone: 04-30-2022 10:57-0400 Body surface area Derived from formula 1.96 m2 Anna Pereira Work Phone: [facility] 250 DO Work Phone: 04-30-2022 10:57-0400 Body weight 93.9 kg Anna Pereira Work Phone: [facility] 250 DO Work Phone: 04-30-2022 10:57-0400 Diastolic blood pressure 50 mm[Hg] Anna Pereira Work Phone: [facility] 250 DO Work Phone: 04-30-2022 10:57-0400 Heart rate 64 /min Anna Pereira Work Phone: [facility] 250 DO Work Phone: 04-30-2022 10:57-0400 Systolic blood pressure 120 mm[Hg] Anna Pereira Work Phone: [facility] 250 DO Work Phone: 04-16-2022 00:00-0400 60 1 Devante Ben DO Work Phone: [facility] 250 DO Work Phone: Comment on above: [id number] 10-12-2021 14:30-0500 Body height Brian Winchester Other [facility] [employer] Other 10-12-2021 14:30-0500 Body mass index (BMI) [Ratio] 36.61 kg/m2 Brian Silverio Other [employer] Other 10-12-2021 14:30-0500 Body temperature 98.7 [degF] Brian Sawyer Other [employer] Other 10-12-2021 14:30-0500 Body weight 99.79 kg Brian Sawyer Other [employer] Other 10-12-2021 14:30-0500 Diastolic blood pressure 58 mm[Hg] Brian Sawyer Other [employer] Other 10-12-2021 14:30-0500 SaO2% (BldA) [Mass fraction] 92 % Brian Sawyer Other [employer] Other 10-12-2021 14:30-0500 Systolic blood pressure 94 mm[Hg] Brian Sawyer Other [employer] Other Encounters Encounter Date Encounter Type Care Provider Facility Start: 05-20-2024 End: 05-22-2024 Evaluation and management of inpatient MD Shaikh Serna Work Phone: [facility] [place] [facility] Work Phone: Start: 05-20-2024 End: 05-22-2024 observation encounter MD Shaikh Serna Work Phone: [facility] Work Phone: Start: 05-20-2024 End: 05-22-2024 ambulatory Kali Danie Facility:[facility] Start: 05-17-2024 Non-patient / Non-visit MD Kenyon Serna Work Phone: [facility] Work Phone: Start: 05-16-2024 End: 05-18-2024 Evaluation and management of inpatient MD Shaikh Serna Work Phone: [facility] [place] [facility] Work Phone: Start: 05-04-2024 End: 05-04-2024 ambulatory [facility] Work Phone: Start: 05-04-2024 End: 05-04-2024 Patient encounter procedure [facility] Work Phone: Start: 04-25-2024 End: 04-25-2024 ambulatory TRENT RAMIREZ Not Available Start: 04-19-2024 End: 04-19-2024 ambulatory SHAIKH DAPHNE Not Available Start: 03-17-2024 End: 03-17-2024 ambulatory SHAIKH DAPHNE Not Available Start: 03-02-2024 End: 03-02-2024 ambulatory [facility] Ambulatory Start: 02-17-2024 End: 02-17-2024 ambulatory [...] 34.0 to 34.9 in adult; Atherosclerosis of [place] coronary artery of [place] heart without angina pectoris Start: 01-29-2024 ambulatory Josr mario DO Work Phone: [facility] Comment [...] DAPHNE Not Available Start: 01-06-2024 End: 01-06-2024 Admission to same day surgery center MD Shaikh Serna Work Phone: [facility] [place] Work Phone: Start: 01-06-2024 End: 01-06-2024 ambulatory MD Shaikh Serna Work Phone: [facility] Work Phone: Start: 12-29-2023 Telephone encounter Trent Ramirez MD Work Phone: [facility] Start: 12-17-2023 End: 12-17-2023 ambulatory SHAIKH DAPHNE Not Available Start: 12-16-2023 End: 12-16-2023 ambulatory TRENT RAMIREZ Not Available Start: 12-02-2023 End: 12-02-2023 ambulatory SHAIKH DAPHNE Not Available Start: 11-25-2023 Orders Only Not In System Ref Prov [facility] Start: 11-19-2023 End: 11-24-2023 Emergency department patient visit ANNA PEREIRA [facility] Start: 11-12-2023 End: 11-12-2023 ambulatory ANTONY Edson JESÚS Not Available Start: 08-20-2023 Office outpatient vi sit 25 minutes Anna Jasso De Witt Work Phone: [facility] 600 DO Work Phone: Start: 08-20-[address] Devante Ibarra II Facility: Start: 12-27-2022 End: 12-27-2022 ambulatory LARA EDOUARD Facility: Start: 06-17-2022 Patient encounter procedure Anna Jasso De Witt Work Phone: [facility] 250 DO Work Phone: Start: 04-30-2022 Office outpatient vi sit 25 minutes Anna Jasso De Witt Work Phone: [facility] 250 DO Work Phone: Start: 04-22-2022 Patient encounter procedure Devante Contreras DO Work Phone: [facility] 250 DO Work Phone: Start: 10-12-2021 End: 10-12-2021 ambulatory Brian Sawyer Other [employer] Other Start: 10-12-2021 Office outpatient vi sit 15 minutes Brian Sawyer [facility] Start: 03-04-2021 End: 03-04-2021 Patient encounter procedure Anna De [place] -Lab [facility] Start: 07-22-2017 Ambulatory DEVANTE IBARRA Facil [id number] Procedures Date Procedure Procedure Detail Performing Clinician Start: 05-20-2024 Plain chest X-ray MD Martha Serna Work Phone: Start: 05-17-2024 Ultrasonography of b ilateral kidneys MD Shaikh Serna Work Phone: Start: 11-23-2023 MULTIPLE LABS Not In Sy stem Ref Prov Start: 11-23-1979 Total colonoscopy Syd Contreras DO Work Phone: Appendectomy Anna E Bristo l Work Phone: Arthroplasty of knee Anna Pereira Work Phone: Cardiac catheterization Will reykim Contreras DO Work Phone: Cholecystectomy Anna Agarwal storeynaldo Work Phone: Hysterectomy Anna Jasso Bristo l Work Phone: Removal of thrombus Anna Pereira Work Phone: Surgical procedure o n eye proper Anna Pereira Work Phone: Plan of Treatment Date Care Activity Detail Author Start: 12-25-2031 DTaP,Tdap and Td Vaccines (2 - Td or Tdap) DTaP,Tdap and Td Vaccines (2 - Td or Tdap) [facility] Start: 02-08-2025 Adult BMI Screening Adult BMI Screening [facility] Start: 01-28-2025 Adult BMI Screening Adult BMI Screening [facility] Start: 01-28-2025 Tobacco Screening Tobacco Screening [facility] Start: 05-22-2024 [facility] Start: 05-21-2024 [facility] Start: 05-20-2024 [facility] Start: 05-20-2024 End: 05-20-2024 [facility] Start: 05-20-2024 Hospital admission [facility] Start: 05-20-2024 Hepatic function panel [facility] Start: 05-20-2024 [facility] Start: 05-18-2024 [facility] Start: 05-17-2024 Referral to tyre retreader [facility] Start: 05-16-2024 Hospital admission [facility] Start: 01-21-2024 End: 01-21-2024 Patient encounter procedure 01/21/2024 1:50 PM EST Procedure Visit [facility] [address] [facility] [address] [place] [address] Antony Grant DPM [address] [facility] [address] [place] [address] [facility] Start: 01-20-2024 End: 01-20-2024 Patient encounter procedure 01/20/2024 9:30 AM EST Office Visit [facility] [address] [place] [address] Shaikh Serna MD [address] [place] [address] [facility] Start: 01-14-2024 End: 01-14-2024 Patient encounter procedure 01/14/2024 11:00 AM EST Procedure Visit [facility] [address] [place] [id number] [facility] Start: 01-06-2024 [facility] Start: 01-06-2024 [facility] Start: 01-06-2024 Bone marrow sampling [facility] Start: 07-24-2023 Influenza vaccination [facility] Start: 07-10-2022 FUV, Provider: Devante Ibarra, Status: Pen, Time: 10:50 AM [facility]UV, Provider: Devante Ibarra, Status: Pen, Time: 10:50 AM [facility] 250 DO Work Phone: Start: 04-30-2022 FUV, Provider: Cristal Grant, Status: Pen, Time: 10:30 AM [facility]UV, Provider: Cristal Grant, Status: Pen, Time: 10:30 AM [facility] 250 DO Work Phone: Start: 01-15-2022 Adult BMI Screening Adult BMI Screening [facility] Start: 07-24-2018 Pneumococcal Vaccine: 65+ Years (2 - PCV) Pneumococcal Vaccine: 65+ Years (2 - PCV) [facility] Start: 2015 Fall Risk Screening Fall Risk Screening [facility] Start: 2000 Administration of varicella zoster vaccine Zoster (Shingles) Vaccine (1 of 2) [facility] Start: 04-15-1990 Screening for malignant neoplasm of breast Mammogram [facility] Start: 1968 Adult BMI Follow Up Plan Adult BMI Follow Up Plan [facility] Start: 1962 Depression Screening Depression Screening [facility] Start: 1962 Tobacco Screening Tobacco Screening [facility] Start: 1950 Medicare Annual Wellness (AWV) Medicare Annual Wellness (AWV) [facility] Start: 1950 Screening for malignant neoplasm of colon [facility] Start: 1950 Medicare Annual Wellness Visit Medicare Annual Wellness Visit [facility] Albumin/Globulin ratio [facility] Basophils [#/volume] in Blood by Automated count [facility] Basophils/100 leukoc ytes in Blood by Automated count [facility] Bilirubin.indirect [Mass/volume] in Serum or Plasma [facility] Eosinophils/100 leukocytes in Blood by Automated count [facility] Erythrocyte distribu tion width [Ratio] by Automated count [facility] Erythrocytes [#/volu me] in Blood [facility] Erythropoietin (EPO) [Units/volume] in Serum or Plasma [facility] Globulin [Mass/volum e] in Serum [facility] Hematocrit [Volume Fraction] of Blood [facility] Hemoglobin [Mass/vol ume] in Blood [facility] Leukocytes [#/volume ] corrected for nucleated erythrocytes in Blood by Automated coun [facility] Leukocytes [#/volume ] in Blood [facility] Lymphocytes [#/volum e] in Blood by Automated count [facility] Lymphocytes/100 leukocytes in Blood by Automated count [facility] MCH [Entitic mass] b y Automated count [facility] MCHC [Mass/volume] b y Automated count [facility] MCV [Entitic volume] by Automated count [facility] Monocytes [#/volume] in Blood by Automated count [facility] Monocytes/100 leukoc ytes in Blood by Automated count [facility] Neutrophils [#/volum e] in Blood by Automated count [facility] Neutrophils/100 leukocytes in Blood by Automated count [facility] Nucleated erythrocyt es [Presence] in Blood by Automated count [facility] Patient Education [facility] Work Phone: Patient referral [facility] Work Phone: Platelet mean volume [Entitic volume] in Blood by Automated count [facility] Renal function 2000 panel - Serum or Plasma [facility]ney - [facility] Immunizations Immunization Date Immunization Notes Care Provider Fa abdulaziz 12-25-2021 tetanus toxoid, redu zak diphtheria toxoid, and acellular pertussis vaccine, adsorbed Anna E De Witt Work Phone: [facility] 09-11-2020 influenza virus vacc ine, unspecified formulation Dawes E De Witt Work Phone: [facility] 250 DO Work Phone: 09-08-2020 Fluzone QIV High-Dos e 65YR+ Anna [facility] 09-08-2020 influenza virus vacc ine, unspecified formulation Not Ref Prov [facility] 10-14-2019 influenza, high dose seasonal, preservative-free Dawes [facility] 07-24-2017 pneumococcal polysaccharide vaccine, 23 valent Dawes E De Witt Work Phone: [facility] 250 DO Work Phone: 08-28-2015 influenza, high dose seasonal, preservative-free Anna E De Witt Work Phone: [facility] 250 DO Work Phone: influenza virus vacc ine, unspecified formulation Dawes E De Witt Work Phone: [facility] 250 DO Work Phone: Comment on above: Aug 20122012 Payers Date Payer Category Payer Self-pay [id number] 2023 Medicare [id number] 2023 Private Health Insurance [id number] Private Health Insurance [id number] 1950 Unknown [id number] 1950 Unknown [id number] [id number]59 1950 Unknown [id number] 2.16.840.1.579516.3.579.2.1259 1950 Unknown [id number] 2.16.840.1.361621.3.579.2.1259 1950 Unknown [id number] 2.16.840.1.908791.3.579.2.125 1950 Unknown [id number] 2.16.840.1.858784.3.579.2.1258 1950 Unknown [id number] 2.16.840.1.647319.3.579.2.593 1950 Unknown [id number] 2.16.840.1.238265.3.579.2.356 1950 Unknown [id number] 2.16.840.1.451117.3.579.2.1286 1950 Unknown [id number] 2.16.840.1.738298.3.579.2.1259 1950 Unknown [id number] 2.16.840.1.467311.3.579.2.9 1950 Unknown [id number] 2.16.840.1.970582.3.579.2.1258 1950 Unknown [id number] 2.16.840.1.548439.3.579.2.125 1950 Unknown [id number] 2.16.840.1.425634.3.579.2.1244 Medicare [id number] Private Health Insurance [id number] Private Health Insurance [employer] [id number] Unknown [employer] Unknown [id number] [id number]1 Unknown [id number] [id number]1 Unknown [id number] Social History Date Type Detail Facility Start: 10-02-2020 End: 05-20-2024 Tobacco smoking status NHIS Ex-smoker (finding) [facility] Work Phone: Start: 1950 Sex Assigned At Female F [facility] Start: 12-18-2020 End: 01-15-2021 No illicit drug use No illicit drug use -[facility] [address] DO Work Phone: Comment on above: Quit 1993; 4 cups tea daily; Start: 12-18-2020 End: 01-15-2021 Sex Assigned At [facility] [employer] Other History of tobacco use Current smoker [facility] Start: 07-05-2018 End: 12-02-2023 Tobacco use and exposure Smokeless tobacco non-user [facility] Start: 01-15-2021 End: 01-29-2024 Alcohol intake Current non-drinker of alcohol (finding) [facility] Housing Instability Unknown [facility] Start: 1950 End: 1950 Sex Assigned At Not on file [facility] Start: 12-02-2023 Tobacco smoking stat [facility] Never smoked tobacco [facility] History of tobacco use Passive smoker [facility] Start: 12-17-2023 Alcohol intake Lifetime non-d rony (finding) [facility] Start: 11-12-2023 Alcohol Comment caffeine intak e: 1-2 cups per day (pepsi, ice tea) [facility] Medical Equipment Procedure Code Equipment Code Equipment Original Text Equipment Identifier Dates FDA Start: 10-13-2019 [id number] FDA Start: 10-13-2019 [id number] FDA Start: 10-13-2019 CL CLOSURE DEVIC E ANGIOSEAL 6F FDA Start: 10-13-2019 [id number] FDA Start: 10-13-2019 CL CLOSURE DEVIC E ANGIOSEAL 6F FDA Start: 10-13-2019 [id number] FDA Start: 10-13-2019 CL CLOSURE DEVIC E ANGIOSEAL 6F FDA Start: 10-13-2019 [id number] FDA Start: 10-13-2019 CL CLOSURE DEVIC E ANGIOSEAL 6F FDA Start: 10-13-2019 [id number] FDA Start: 10-13-2019 CL CLOSURE DEVIC E ANGIOSEAL 6F FDA Start: 10-13-2019 Goals Date Patient Goal Desired Activity /State Functional Status Date Assessment Result Facility 05-22-2024 Functional status Patient at Baseline [facility] Work Phone: 05-18-2024 Functional status Patient at Baseline [facility] Work Phone: Mental Status Date Assessment Result Facility 05-22-2024 Cognitive function Cognitive Sta tus Patient at Baseline [facility] Work Phone: 05-18-2024 Cognitive function Cognitive Sta tus Patient at Baseline [facility] Work Phone: Clinical Notes 10-12-2021 to 05-22-2024 Note Date & Type Note Facility 05-22-2024 Discharge summary Note Date/Time May 22, 2024 2:15pm [facility] [address] [place] [address] Discharge Summary Signed Patient: Kusum Huerta MR#: [id number] : 1950 Acct:[id number] Age/Sex: 74 / F Adm Date: 4 Loc: Room: [address] [place] [address]: Kali Helton MD Copies to: MD Shaikh Daphne Chavis MD~ Providers Date of Discharge: 05/22/24 Discharging Provider: Kali Helton Primary Care Provider: Shaikh Daphne Consults: 05/21/24 07:02 Consult to Occupational Therapy Routine Comment: Physician Instructions: Consult to OT for:: Evaluation and Treat Consult to Physical Therapy Routine Comment: Physician Instructions: Consult to PT for:: Evaluation and Treat Discharge Diagnosis Final Diagnosis Final Discharge Diagnosis: Nausea secondary to IVIG Uncontrolled hypertension Chest pain Vitamin B12 and folate deficiency Chronic problems Obesity class I BMI 31 Hypertension Mild to moderate aortic stenosis Moderate to severe 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 difficile colitis Dyslipidemia Summary Hospital Course Hospital course: Patient is a 74-year-old female, recently hospitalized for chest pain, and SHANKAR. She was discharged home with plan for outpatient stress test. She presented back to the hospital with chest discomfort, nausea, shortness of breath. She was readmitted for evaluation. Her nausea was felt to be secondary to her recent treatment with IVIG for GM Ahmadi? syndrome. It was treated conservatively and it resolved. Her blood pressure remained elevated, and antihypertensive regimen was changed as noted below. I was able to combine 3 antihypertensives in 1 tablet to improve compliance and ease of administration. She was discharged home in stable condition on May 22. She will continue regimen as noted below. Outpatient stress test is already indicated. Incidentally, her B12 and folate were rechecked, found to be low, and supplementation was adjusted as noted below. I recommend B12 levels be checked in a couple of months to ensure improvement given her severe neuropathy. PPI was prescribed given coadministration of antiplatelets and anticoagulants. Time Spent with Patient Time spent providing/coordinating discharge services (# min): 40 Discharge Plan Discharge Plan Patient Disposition: Home Health [facility] Activity: No Activity Restriction Diet: Low-Sodium Additional Instructions: Home Health to manage care: - Full code - PT/OT eval and treat - Routine vital signs - Medication management and education Instructions: Know your Meds Prescriptions: New nfltvhxygh-krnqrqloe-euobyzwym 10-320-25 mg tablet 1 tab PO DAILY Qty: 90 3RF omeprazole 20 mg tablet,delayed release (DR/EC) 20 mg PO DAILY Qty: 90 3RF cyanocobalamin (vitamin B-12) 1,000 mcg capsule 1,000 mcg PO DAILY Qty: 90 0RF folic acid 1 mg tablet 1 mg PO DAILY Qty: 90 0RF Continued nitroglycerin 0.4 mg Tablet, Sublingual 0.4 mg sublingual Q5M PRN (Reason: Chest Pain) 30 Days Qty: 25 3RF acetaminophen 325 mg Tablet 650 mg PO Q6H PRN (Reason: Fever >101) Qty: 0 0RF atorvastatin 80 mg Tablet 80 mg PO QPM 30 Days Qty: 30 12RF clopidogrel [Plavix] 75 mg tablet 75 mg PO DAILY 30 Days Qty: 30 12RF nitroglycerin [Nitro-Dur] 0.2 mg/hr patch 24 hour 1 patch transdermal DAILY 30 Days Qty: 30 0RF Rx Instructions: allow nitrate-free interval of approx. 10-12 hrs per 24-hour period ondansetron HCl 4 mg tablet 4 mg PO Q8HR PRN (Reason: nausea and vomiting) fluconazole 150 mg tablet 150 mg PO QWEEK pregabalin 75 mg capsule 75 mg PO BID tizanidine 4 mg tablet 4 mg PO Q8HR PRN (Reason: pain ) Eliquis 2.5 mg tablet 2.5 mg PO BID Gammagard Liquid 10 % solution 50 g IV .COMPLEX Rx Instructions: 50 grams intravenously Q 21 days; thiamine HCl (vitamin B1) 100 mg tablet 100 mg PO DAILY furosemide 20 mg tablet 20 mg PO DAILY spironolactone 25 mg tablet 25 mg PO DAILY Hold Instructions: hold until you see your tubing oiler metoprolol tartrate 50 mg tablet 50 mg PO BID Changed ferrous sulfate [FeroSul] 325 mg (65 mg iron) tablet 325 mg PO Q48H 360 Days Qty: 0 0RF Discontinued cyanocobalamin (vitamin B-12) 500 mcg tablet 500 mcg PO DAILY lisinopril 40 mg tablet 40 mg PO DAILY hydrochlorothiazide 12.5 mg tablet 12.5 mg PO DAILY Hold Instructions: hold until you see your tubing oiler amlodipine 5 mg tablet 10 mg PO DAILY Other Ambulatory Orders: Initiate Home Health (Routine) Timeframe: 1 Day Location: Determined by Patient Ordered By: Kali Helton Follow Up: Shaikh Serna MD [Primary Care Provider] - (Call office on Thursday to schedule follow-up with your Primary Care Provider in 3-5 days. ) Exam Physical Exam Vital Signs: Temp Pulse Resp BP Pulse Ox O2 Del Method 98.1 F 78 16 148/77 H 95 Room Air 05/22/24 08:00 05/22/24 08:00 05/22/24 08:00 05/22/24 08:00 05/22/24 08:00 05/22/24 08:00 Diagnostic Studies Completed and Pending Studies Labs on day of discharge: 05/22/24 12:12: Vitamin B12 219, Folate 5.4 L Documented By: Kali Helton MD 05/22/24 1412 Signed By: <Electronically signed by Kali Helton MD> 05/22/24 1420 [facility] Work Phone: 1(134) 570-489606-29-2024 Progress note Author Kali Helton [facility] May 21, 2024 12:14pm Note Date/Time May 21, 2024 12:1 4pm [facility] [address] [place] [address] Hospitalist Progress Note Signed Patient: Kusum Huerta MR#: [id number] : 1950 Acct:[id number] Age/Sex: 74 / F Adm Date: 4 Loc: Room: [address] [place] [address] Type: ADM INOo Attending Dr: Kali Helton MD Copies to: ~ Date of Service: 05/21/2024 Subjective Subjective Narrative: Patient is feeling better today. Nausea is slowly improving. She did not have any diarrhea. No chest pains. Heart regular Lungs clear Abdomen soft benign Neurological nonfocal Assessment and plan 1. Nausea, diarrhea. History of C. difficile colitis. Patient has not had a bowel movement while in the hospital. Unlikely to be C. difficile. Vancomycin was administered empirically until this could be ruled out, given her history. It is possible that her GI symptoms are secondary to IVIG infusion for Guillain-Ahmadi?, which occurred about a week ago, followed shortly by the GI symptoms. Continue symptomatic treatment. Added also PPI given the fact that she is on aspirin and anticoagulant. 2. Chest pain. Troponin and EKG so far have demonstrated no clear signs of ischemia No evidence of new ACS. Outpatient stress test is indicated during recent admission 3. Uncontrolled hypertension. Added hydralazine to the current regimen. 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 difficile colitis Dyslipidemia Exam Physical Exam Vital Signs: Temp Pulse Resp BP Pulse Ox O2 Del Method 97.7 F 57 L 16 140/82 96 Room Air 05/21/24 07:53 05/21/24 12:00 05/21/24 12:00 05/21/24 12:00 05/21/24 12:00 05/21/24 12:00 Objective Lab Results 05/20/24 17:30 05/20/24 17:30 Meds Allergies and Active Meds Allergies No Known Allergies Allergy (Verified 05/20/24 16:38) Active Meds: Active Medications Generic Name Dose Route Start Last Admin Trade Name Freq PRN Reason Stop Dose Admin Acetaminophen 650 mg 05/20/24 19:54 05/21/24 06:34 Acetaminophen 325 Mg Tablet PO 05/20/25 19:53 650 mg Q6H PRN Administration Fever >101 Amlodipine Besylate 10 mg 05/21/24 09:00 05/21/24 10:13 Amlodipine 10 Mg Tablet PO 05/21/25 08:59 10 mg DAILY KRYSTYNA Administration Apixaban 2.5 mg 05/20/24 21:00 05/21/24 10:13 Apixaban 2.5 Mg Tablet PO 05/20/25 20:59 2.5 mg BID KRYSTYNA Administration Atorvastatin Calcium 80 mg 05/20/24 21:00 05/20/24 21:24 Atorvastatin 80 Mg Tablet PO 05/20/25 20:59 80 mg QPM KRYSTYNA Administration Clopidogrel Bisulfate 75 mg 05/21/24 09:00 05/21/24 10:12 Clopidogrel Bisulfate 75 Mg Tablet PO 05/21/25 08:59 75 mg DAILY KRYSTYNA Administration Hydralazine HCl 25 mg 05/21/24 11:40 Hydralazine 25 Mg Tablet PO 05/21/25 11:39 TID KRYSTYNA Lisinopril 40 mg 05/21/24 09:00 05/21/24 10:29 Lisinopril 40 Mg Tablet PO 05/21/25 08:59 40 mg DAILY KRYSTYNA Administration Metoprolol Tartrate 50 mg 05/20/24 21:00 05/21/24 10:13 Metoprolol Tartrate 50 Mg Tablet PO 05/20/25 20:59 50 mg BID KRYSTYNA Administration Nitroglycerin 1 each 05/21/24 09:00 05/21/24 10:13 Nitroglycerin Patch 0.2 Mg/Hr 1 Each Patch.Td24 TRANSDERML 05/21/25 08:59 1each DAILY KRYSTYNA Administration Pantoprazole Sodium 40 mg 05/21/24 11:35 Pantoprazole 40 Mg Tablet. PO 05/21/25 11:34 BID KRYSTYNA Pregabalin 75 mg 05/20/24 21:00 05/21/24 10:13 Pregabalin 75 Mg Capsule PO 11/16/24 20:59 75 mg BID KRYSTYNA Administration Prochlorperazine Edisylate 10 mg 05/20/24 19:55 05/21/24 08:57 Prochlorperazine Edisylate 10 Mg/2 Ml Vial IV-PUSH 05/20/25 19:54 10 mg Q4H PRN Administration Nausea And Vomiting Sodium Chloride 0 ml 05/20/24 16:36 05/21/24 08:58 Sodium Chloride 0.9 % 10 Ml Syringe IV-PUSH 05/20/25 16:35 10 ml PRN PRN Administration Flush Spironolactone 25 mg 05/21/24 09:00 05/21/24 10:13 Spironolactone 25 Mg Tablet PO 05/21/25 08:59 25 mg DAILY KRYSTYNA Administration Vancomycin HCl 125 mg 05/20/24 22:00 05/21/24 10:14 Vancomycin 125 Mg Capsule PO 05/30/24 18:01 125 mg QID KRYSTYNA Administration A&P - Hospitalist Assessment/Plan (1) Chest pain at rest: Plan . Documented By: Kali Helton MD 05/21/241211 Signed By: <Electronically signed by Kali Helton MD> 05/21/[address] [facility] Work Phone: 1(879) 792-247306-28-2024 History and physical note Author Kali Helton [facility] May 20, 2024 8:01pm Note Date/Time May 20, 2024 6:46 pm [facility] [address] [place] [address] Hospitalist H&P Signed Patient: Kusum Huerta MR#: [id number] : 1950 Acct:[id number] Age/Sex: 74 / F Adm Date: 4 Loc: Room: [address] [place] [address] Type: ADM INOo Attending Dr: Kali Helton MD Copies to: MD Shaikh Daphne Chavis MD~ HPI DATE OF EXAMINATION: 05/20/24 HISTORY OF PRESENT ILLNESS: Patient is 74-year-old female, who presents today to the emergency department complaining of chest discomfort. Patient was discharged 2 days ago, after being hospitalized through [facility] and then transferred to us, with SHANKAR, chest discomfort. She was discharged withplans for outpatient stress test. Since going home, she remains weak. She felt a bit confused, the iyvaoqia-sf-ilb stated that similarly to situation in the past where she had UTIs. However she has no urinary symptoms such as dysuria. She did have diarrhea 3-4 times yesterday with liquid stool. No abdominal pain. Remains very nauseated unable to eat anything really. No fever or chills. No respiratory symptoms. Today watching TV, she developed chest pressure. This was associated with some shortness of breath. Presented to the ED with administration of morphine and nitroglycerin was successful in alleviating the pain. However she still has some mild pain at the time of my exam. 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 difficile colitis Dyslipidemia 10 point review of systems negative except as noted Physical exam Patient appears comfortable, in no distress. Skin is normally colored, no icterus, cyanosis or edema noted. Capillary refill is normal. Joints are without any effusion. Abdomen is soft, benign, no rebound or rigidity. No organomegaly. Bowel sounds present. Heart regular, no gallop, rub or JVD. Peripheral pulses present bilaterally. Lungs are clear to auscultation, no rales, ronchi or wheezes. HENT normal Neurological: Patient is awake. Cognition is normal. Cranial nerves are intact. Power is symmetric all extremities, with no focal motor deficit identified on a cursory exam. Psych: affect is normal. EKG Labs imaging reviewed Assessment and plan 1. Nausea, diarrhea. History of C. difficile colitis. Test stool for C. difficile. Start empiric treatment with oral vancomycin untilresults back. 2. Chest pain. Troponin and EKG so far have demonstrated no clear signs of ischemia Continue cardiac monitoring and serial troponins. Given current renal function which is improving, coronary angiogram can be reconsidered. 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 difficile colitis Dyslipidemia [facility] Medical History COVID Skin cancer Back pain Arthritis Hyperlipidemia C. difficile diarrhea Heart attack HTN (hypertension) Surgical History History of orthopedic surgery History of cardiac catheterization Hx of cholecystectomy Total knee replacement status History of appendectomy H/O: hysterectomy H/O heart artery stent Family History (Updated 05/16/24 @ 23:52 by Yulia Jacob APRN) Mother , Hx of heart attack, COPD, and heart surgery Heart disease COPD (chronic obstructive pulmonary disease) Myocardial infarction Father , at 64 in his sleep, had heart surgery in his 50s History of heart surgery Heart disease COPD (chronic obstructive pulmonary disease) Myocardial infarction Sister Myocardial infarction Father Hypertension Diabetes Family/Other Legacy FamHx Problem: Sister MA :2 sons -1 auto accident/1 pulmonary fibrosis:daughter-BERTA Mother Hypertension Son Hypertension Heart disease Sister Heart disease Social History Smoking Status: Former smoker Tobacco Type: cigarettes Substance Use Type: None Substance Abuse Comment: currently prescribed suboxone, states last film on Thursday Meds Medications and Allergies Allergies No Known Allergies Allergy (Verified 05/20/24 16:38) Home Medications nitroglycerin 0.4 mg sublingual tablet 0.4 mg sublingual Q5M PRN Chest Pain 30 days #25 tabs 10/14/19 [Rx Confirmed 05/20/24] acetaminophen 325 mg tablet 650 mg (2 x 325 mg) PO Q6H PRN Fever >101 #0 tabs 09/09/20 [Rx Confirmed 05/20/24] atorvastatin 80 mg tablet 80 mg PO QPM 30 days #30 tabs 04/18/22 [Rx Confirmed 05/20/24] amlodipine 5 mg tablet 10 mg PO DAILY 05/04/24 [History Confirmed 05/20/24] apixaban 2.5 mg tablet (Eliquis) 2.5 mg PO BID 05/04/24 [History Confirmed 05/20/24] cyanocobalamin (vitamin B-12) 500 mcg tablet 500 mcg PO DAILY 05/04/24 [History Confirmed 05/20/24] ferrous sulfate 325 mg (65 mg iron) tablet (FeroSul) 325 mg PO DAILY 05/04/24 [History Confirmed 05/20/24] fluconazole 150 mg tablet 150 mg PO QWEEK 05/04/24 [History Confirmed 05/20/24] furosemide 20 mg tablet 20 mg PO DAILY 05/04/24 [History Confirmed 05/20/24] hydrochlorothiazide 12.5 mg tablet 12.5 mg PO DAILY 05/04/24 [History Confirmed 05/20/24] immune glob,gamma (IgG) 10 %-gly-IgA over 50 mcg/mL injection solution (Gammagard Liquid) 50 g IV .COMPLEX 05/04/24 [History Confirmed 05/20/24] lisinopril 40 mg tablet 40 mg PO DAILY 05/04/24 [History Confirmed 05/20/24] metoprolol tartrate 50 mg tablet 50 mg PO BID 05/04/24 [History Confirmed 05/20/24] ondansetron HCl 4 mg tablet 4 mg PO Q8HR PRN nausea and vomiting 05/04/24 [History Confirmed 05/20/24] pregabalin 75 mg capsule 75 mg PO BID 05/04/24 [History Confirmed 05/20/24] spironolactone 25 mg tablet 25 mg PO DAILY 05/04/24 [History Confirmed 05/20/24] thiamine HCl (vitamin B1) 100 mg tablet 100 mg PO DAILY 05/04/24 [History Confirmed 05/20/24] tizanidine 4 mg tablet 4 mg PO Q8HR PRN pain 05/04/24 [History Confirmed 05/20/24] clopidogrel 75 mg tablet (Plavix) 75 mg PO DAILY 30 days #30 tabs 05/17/24 [Rx Confirmed 05/20/24] nitroglycerin 0.2 mg/hr transdermal 24 hour patch (Nitro-Dur) 1 patch transdermal DAILY 30 days #30 ea 05/17/24 [Rx Confirmed 05/20/24] Exam Physical Exam Vital Signs: Temp Pulse Resp BP Pulse Ox O2 Del Method 98.3 F 69 20 162/75 H 96 Room Air 05/20/24 16:37 05/20/24 18:35 05/20/24 18:35 05/20/24 18:35 05/20/24 16:42 05/20/24 16:42 Results - Hospitalist H&P Lab Results Labs: Laboratory Last Values Corrected WBC 4.3 X10E3/uL (3.8-11.6) 05/20/24 17:30 Uncorrected WBC Count 4.3 x10E3/uL (3.8-11.6) 05/20/24 17:30 RBC 3.82 X10E6/uL (3.60-5.00) 05/20/24 17:30 Hgb 10.0 g/dL (11.8-15.4) L 05/20/24 17:30 Hct 31.3 % (34.0-46.4) L 05/20/24 17:30 MCV 81.9 fl (80-100) 05/20/24 17:30 MCH 26.3 pg (24.7-34.3) 05/20/24 17:30 MCHC 32.1 g/dL (32.0-35.0) 05/20/24 17:30 RDW 19.6 % (11.9-15.3) H 05/20/24 17:30 Plt Count 220 x10E3/uL (150-450) 05/20/24 17:30 MPV 8.4 fl (6.3-10.7) 05/20/24 17:30 Neut % (Auto) 44.7 % (.) 05/20/24 17:30 Lymph % (Auto) 40.0 % (.) 05/20/24 17:30 Ogle % (Auto) 13.6 % (.) 05/20/24 17:30 Eos % (Auto) 0.6 % (.) 05/20/24 17:30 Baso % (Auto) 1.1 % (.) 05/20/24 17:30 Nucleat RBC Rel Count 0.1 /100 WBC (0-0.5) 05/20/24 17:30 Neut # (Auto) 1.9 x10E3/uL (1.8-7.7) 05/20/24 17:30 Lymph # (Auto) 1.7 x10E3/uL (1.00-4.8) 05/20/24 17:30 Ogle # (Auto) 0.6 x10E3/uL (0.0-0.8) 05/20/24 17:30 Eos # (Auto) 0.0 x10E3/uL (0.0-0.45) 05/20/24 17:30 Baso # (Auto) 0.0 x10E3/uL (0.0-0.2) 05/20/24 17:30 Monocyte Dist Width 19.14 % (0.00-20.00) 05/20/24 17:30 PT 12.4 Seconds (9.0-12.9) 05/20/24 17:30 INR 1.1 05/20/24 17:30 APTT 22.7 Seconds (25.1-36.5) L 05/20/24 17:30 PHA Creatinine Clear 34.50 05/20/24 17:30 Sodium 138 mmol/L (136-145) 05/20/24 17:30 Potassium 3.8 mmol/L (3.5-5.1) 05/20/24 17:30 Chloride 106 mmol/L (98-107) 05/20/24 17:30 Carbon Dioxide 24.1 mmol/L (21.0-31.0) 05/20/24 17:30 Anion Gap 11.7 mEq/L (6.0-15.0) 05/20/24 17:30 BUN 24 mg/dL (7-25) 05/20/24 17:30 Creatinine 1.47 mg/dL (0.60-1.20) H 05/20/24 17:30 Est GFR (CKD-EPI) 37.233 mL/Min 05/20/24 17:30 Glucose 108 mg/dL (70-100) H 05/20/24 17:30 Calcium 8.8 mg/dL (8.6-10.3) 05/20/24 17:30 Total Creatine Kinase 26 U/L (30-223) L 05/20/24 17:30 Troponin I High Sens 39.2 pg/mL (0.0-15.0) H 05/20/24 17:30 B-Natriuretic Peptide 461.0 pg/mL (5-100) H 05/20/24 17:30 Assessment & Plan Assessment/Plan (1) Chest pain at rest: Plan . IP vs OBS Justification Based on differential dx, clinical care plan, and risk of adverse events, if untreated, in my clinical judgement this patient requires an acute care setting as: OBSERVATION because of an expectation of an under 2 midnight stay. Estimated length of stay (# of days): 1 Documented By: Kali Helton MD 05/20/241843 Signed By: <Electronically signed by Kali Helton MD> 05/20/242000 [facility] Work Phone: 1(264) 994-943606-26-2024 Discharge summary Author Shahzad Gomez [facility] May 18, 2024 1:44pm Note Date/Time May 18, 2024 1:22 pm [facility] [address] [place] [address] Discharge Summary Signed Patient: Kusum Huerta MR#: [id number] : 1950 Acct:[id number] Age/Sex: 74 / F Adm Date: 4 Loc: Room: [address] [place] [address]: Shahzad Gomez MD Copies to: MD Shaikh Daphne Kirkland MD~ Providers Date of Discharge: 05/18/24 Discharging Provider: Shahzad Gomez Primary Care Provider: Shaikh Daphne Consults: 05/16/24 21:14 Consult to Cardiology Routine Comment: Consulting Provider: [facility], [facility] Reason For Exam: chest pain Has Provider Been Notified: Yes Date of Notification: 05/17/24 Time of Notification: 06:38 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 05/17/24 10:46 Consult to Nephrology Routine Comment: Consulting Provider: Elayne Stoddard Has Provider Been Notified: Yes Date of Notification: 05/17/24 Time of Notification: 10:54 Reason for Consult: Renal Failure 05/17/24 11:22 Consult to Occupational Therapy Routine Comment: Physician Instructions: Consult to OT for:: Evaluation and Treat Consult to Physical Therapy Routine Comment: Physician Instructions: Consult to PT for:: Evaluation and Treat Discharge Diagnosis (1) Acute kidney injury superimposed on chronic kidney disease: (2) Metabolic acidosis: (3) Ischemic cardiomyopathy: (4) Anemia: (5) HTN (hypertension): (6) Chest pain: Final Diagnosis Final Discharge Diagnosis: as above Summary Hospital Course Hospital course: Ms. 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 Patient was admitted here for SHANKAR on CKDshe was found to have metabolic acidosis as well. She was transferred to our facility from [facility] due to elevated troponin with concerns for ACS given her cardiac history and cardiology was consulted. Troponin levels were minimally elevated. Cardiology did not recommend any interventions at this timeand recommended to switch aspirin to Plavix. Plan for outpatient stress testing. As of today, patient remained hemodynamically stable, clinically feeling better, plan to continue to hold spironolactone and hydrochlorothiazide and resume home medication lisinopril 40 mg daily and Lasix 20 mg daily. Discussed with patient at bedside, all questions answered, patient in agreement and comfortable with the plan. Condition Condition at Discharge: Stable Time Spent with Patient Time spent providing/coordinating discharge services (# min): 36 Discharge Plan Discharge Plan Patient Disposition: Home Health [facility] Activity: No Activity Restriction Diet: Low-Fat and Low-Sodium Additional Instructions: Home Health to manage care: - Full code - PT/OT eval and treat - Routine vital signs - Medication management and education - Left forearm skin tear- Clean with NS and pat dry. Hydrogel to the wound bed. Top with Adaptic and gauze. Secure with Conform and paper tape. Change daily and as needed. - -Continue to hold your Spironolactone and hydrochlorothiazide until you see yourcardiologist Instructions: Heart Failure, Adult (DC), Clopidogrel, Nitroglycerin, Going Homeon Blood Thinners , Know your Meds Prescriptions: New clopidogrel [Plavix] 75 mg tablet 75 mg PO DAILY 30 Days Qty: 30 12RF nitroglycerin [Nitro-Dur] 0.2 mg/hr patch 24 hour 1 patch transdermal DAILY 30 Days Qty: 30 0RF Rx Instructions: allow nitrate-free interval of approx. 10-12 hrs per 24-hour period Continued nitroglycerin 0.4 mg Tablet, Sublingual 0.4 mg sublingual Q5M PRN (Reason: Chest Pain) 30 Days Qty: 25 3RF acetaminophen 325 mg Tablet 650 mg PO Q6H PRN (Reason: Fever >101) Qty: 0 0RF atorvastatin 80 mg Tablet 80 mg PO QPM 30 Days Qty: 30 12RF ferrous sulfate [FeroSul] 325 mg (65 mg iron) tablet 325 mg PO DAILY ondansetron HCl 4 mg tablet 4 mg PO Q8HR PRN (Reason: nausea and vomiting) fluconazole 150 mg tablet 150 mg PO QWEEK pregabalin 75 mg capsule 75 mg PO BID tizanidine 4 mg tablet 4 mg PO Q8HR PRN (Reason: pain ) Eliquis 2.5 mg tablet 2.5 mg PO BID Gammagard Liquid 10 % solution 50 g IV .COMPLEX Rx Instructions: 50 grams intravenously Q 21 days; thiamine HCl (vitamin B1) 100 mg tablet 100 mg PO DAILY furosemide 20 mg tablet 20 mg PO DAILY albuterol sulfate 90 mcg/actuation HFA aerosol inhaler 2 puff inhalation Q4HR PRN (Reason: shortness of breath or wheezing) cyanocobalamin (vitamin B-12) 500 mcg tablet 500 mcg PO DAILY metoprolol tartrate 50 mg tablet 50 mg PO BID lisinopril 40 mg tablet 40 mg PO DAILY amlodipine 5 mg tablet 10 mg PO DAILY Held spironolactone 25 mg tablet 25 mg PO DAILY Hold Instructions: hold until you see your tubing oiler hydrochlorothiazide 12.5 mg tablet 12.5 mg PO DAILY Hold Instructions: hold until you see your tubing oiler Discontinued aspirin 81 mg tablet,chewable 81 mg PO QAM buprenorphine-naloxone 8-2 mg film See Rx Instructions sublingual DAILY Rx Instructions: 1.5 film sublingually daily; Other Ambulatory Orders: Initiate Home Health (Routine) Timeframe: 1 Day Location: Determined by Patient Ordered By: Shahzad Gomez Follow Up: [facility] [Outside] (Lexiscan Stress Test- once insurance approves we will contact you with appointment and instructions) Cristal Jacob APRN [Nurse Practitioner] - Elayne Stoddard MD [Active Staff] - 08/23/24 10:20 am (Follow-up with Nephrology as previously scheduled. ) Shaikh Serna MD [Primary Care Provider] - (Left message with Dr. Serna's office regarding discharge and need for follow-up within 3-5 days of discharge. The office will call you to arrange a date/time. ) Exam Physical Exam Vital Signs: Temp Pulse Resp BP Pulse Ox O2 Del Method 98.5 F 70 18 179/81 H 96 Room Air 05/18/24 08:00 05/18/24 11:09 05/18/24 11:09 05/18/24 11:09 05/18/24 11:09 05/18/24 11:09 Narrative: Const General: cooperative HEENT Normal oropharyngeal mucosa without any ulcers or exudates Eyes: Conjunctiva normal Pulmonary Auscultation: clear to auscultation , no crackles, no wheezes Cardiovascular Rate: normal rate Rhythm: regular rhythm Heart Sounds: S1 normal, S2 normal and no murmurs GI Inspection: non-distended Palpation: soft, not firm and nontender. No rigidity or rebound. Deferred Neuro General: alert, awake and oriented x3. No obvious new focal deficit. Chronic LE weakness (underlying GBS on Tx) Musculoskeletal: normal range of motion Extrem General: no cyanosis, no pedal edema Psych Appearance: appropriate affect. Grossly normal Diagnostic Studies Completed and Pending Studies Labs on day of discharge: 05/18/24 05:46: Corrected WBC 3.8, Uncorrected WBC Count 3.8, RBC 3.62, Hgb 9.4 L, Hct 29.8 L, MCV 82.4, MCH 26.1, MCHC 31.6 L, RDW 20.1 H, Plt Count 193, MPV 8.6, Neut % (Auto) 37.4, Lymph % (Auto) 42.5, Ogle % (Auto) 12.9, Eos % (Auto) 5.3, Baso % (Auto) 1.9, Nucleat RBC Rel Count 0.3, Neut # (Auto) 1.4 L, Lymph # (Auto) 1.6, Ogle # (Auto) 0.5, Eos # (Auto) 0.2, Baso # (Auto) 0.1, PHA Creatinine Clear 32.87, Sodium 139, Potassium 3.9, Chloride 109 H, Carbon Dioxide 23.0, Anion Gap 10.9, BUN 42 H, Creatinine 1.55 H, Est GFR (CKD-EPI) 34.939, Glucose 110 H, Calcium 8.6, Total Bilirubin 0.4, AST 16, ALT 10, Alkaline Phosphatase 75, Total Protein 7.0, Albumin 3.4 L, Globulin 3.6, Albumin/Globulin Ratio 0.9 Documented By: Shahzad Gomez MD 05/18/24 13 21 Signed By: <Electronically signed by Shahzad Gomez MD> 05/18/24 1344 [facility] Work Phone: 1(659) 761-130806-26-2024 Progress note Author Elayne Puenteraman [facility] May 18, 2024 12:56pm Note Date/Time May 18, 2024 12:5 2pm [facility] [address] [place] [address] Nephrology Progress Note Signed Patient: Kusum Huerta MR#: [id number] : 1950 Acct:[id number] Age/Sex: 74 / F Adm Date: 4 Loc: Room: [address] [place] [address] Type: ADM IN Attending Dr: Shahzad Gomez MD Copies to: ~ Date of Service: 05/18/2024 Subjective Subjective Narrative: This is 74-year-old female patient with 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 Patient was seen as new patient earlier this months in my office. CKD was contributed to hypertensive nephropathy and possible SHANKAR from IVIG. Patient presented to the hospital with sudden onset of chest pain. EKG at admission revealed T wave inversions some of the leads. Chest x-ray revealed bilateral scattered pulmonary granulomas. In the emergency room creatinine was 2.4 mg deciliter. Patient was given a liter of IV fluid and kept on maintenanceIV fluid. Lab from this morning reviewed. Creatinine 1.96 mg deciliter, serum bicarb 15.1, BUN 52 potassium 4.7 and sodium 140. Hemoglobin 9.6 g deciliter. Patient follows with hematology clinic for SAWYER injection as indicated. Renal team was consulted to help managing SHANKAR. I reviewed the patient's home medications. She is on Norvasc, atorvastatin, Eliquis, vitamin B12, iron supplement, Lasix, hydrochlorothiazide, lisinopril, metoprolol, spironolactone and IVIG. Cardiology service was consulted and the plan to do outpatient cardiac stress test. Patient stated she has been making urine. She did not notice reduction in urineoutput. No NSAID use. No recent IV contrast exposure. Interval history: Patient was seen examined her room. Denied chest pain. No back pain. Continues to have nausea but able to eat and able to keep fluid. Continues to be on isotonic sodium bicarb drip. Lab from this morning revealed serum bicarb level up to 23, creatinine down to 1.5 mg deciliter. Noted high blood pressure this morning. Patient only on Norvasc and metoprolol. Home lisinopril, Lasix, Aldactone and hydrochlorothiazide remain on hold Exam Physical Exam Vital Signs: Temp Pulse Resp BP Pulse Ox O2 Del Method 98.5 F 70 18 179/81 H 96 Room Air 05/18/24 08:00 05/18/24 11:09 05/18/24 11:09 05/18/24 11:09 05/18/24 11:09 05/18/24 11:09 Narrative: General: No acute distress Head :atraumatic normocephalic Eyes: PERRLA. Neck: no JVD no bruit. Heart: S1-S2. RRR Respiratory: Clear to auscultation. No wheezing. No crackles Abdomen: Soft, positive bowel sounds,no tenderness. Neurology: Awake alert oriented x3. No focal deficits Extremity. No cyanosis. No edema Skin: No skin rash Objective Intake and Output I&O: Intake & Output 05/15/24 05/16/24 05/17/24 05/18/24 23:59 23:59 23:59 23:59 Intake Total 560 / 560 1510 / 1510 Output Total 100 / 100 Balance 560 / 560 1410 / 1410 Weight 180 lb 8.937 oz 192 lb 10.944 oz 194 lb 10.691 oz Meds and Allergies Meds: Active Medications Acetaminophen (Acetaminophen 500 Mg Tablet) 1,000 mg PO Q6HR PRN PRN Reason: Pain Scale 1 - 3 or fever Stop: 05/16/25 21:13 Last Admin: 05/18/24 11:17 Dose: 1,000 mg Amlodipine Besylate (Amlodipine 10 Mg Tablet) 10 mg PO DAILY [facility] Stop: 05/17/25 08:59 Last Admin: 05/18/24 09:34 Dose: 10 mg Aspirin (Aspirin 81 Mg Tab.Chew) 81 mg PO QAM [facility] Stop: 05/17/25 08:59 Last Admin: 05/18/24 09:34 Dose: 81 mg Atorvastatin Calcium (Atorvastatin 80 Mg Tablet) 80 mg PO QPM [facility] Stop: 05/17/25 20:59 Last Admin: 05/17/24 22:03 Dose: 80 mg Ferrous Sulfate (Ferrous Sulfate 324 Mg Tablet.Dr) 324 mg PO DAILY [facility] Stop: 05/17/25 08:59 Last Admin: 05/18/24 09:34 Dose: 324 mg Heparin Sodium (Porcine) (Heparin 5,000 Unit/Ml Vial) 5,000 unit SUBCUT Q8HR [facility] Stop: 05/17/25 05:59 Last Admin: 05/18/24 05:15 Dose: 5,000 unit Lisinopril (Lisinopril 40 Mg Tablet) 40 mg PO DAILY [facility] Stop: 05/18/25 12:49 Metoprolol Tartrate (Metoprolol Tartrate 50 Mg Tablet) 50 mg PO BID [facility] Stop: 05/17/25 08:59 Last Admin: 05/18/24 09:34 Dose: 50 mg Nitroglycerin (Nitroglycerin 0.4 Mg Tab.Subl) 0.4 mg SUBLINGUAL Q5M PRN PRN Reason: Chest Pain Stop: 05/17/25 00:06 Pregabalin (Pregabalin 75 Mg Capsule) 75 mg PO BID [facility] Stop: 11/13/24 08:59 Last Admin: 05/18/24 09:34 Dose: 75 mg Sodium Chloride (Sodium Chloride 0.9 % 10 Ml Syringe) 0 ml IV-PUSH PRN PRN PRN Reason: Flush Stop: 05/16/25 21:13 Tizanidine HCl (Tizanidine 4 Mg Tablet) 4 mg PO Q8HR PRN PRN Reason: pain Stop: 05/17/25 00:06 Last Admin: 05/17/24 22:07 Dose: 4 mg Allergies No Known Allergies Allergy (Verified 05/04/24 08:20) Results - Nephrology Labs 05/18/24 05:46 05/18/24 05:46 Labs: 05/17/24 05/18/24 12:10 05:46 BUN 42 H Creatinine 1.55 H Albumin 3.4 L Urine RBC 1-2 Urine WBC 1-2 Urine Bacteria None seen Radiology Impressions Impressions - last 24 hours: Impressions Renal Ultrasound 05/17/24 14:08 IMPRESSION: No hydronephrosis or mass. There is an anechoic cyst on the left measuring up to 3.5 cm in greatest dimension. Impression dictated by: Yaw Deluca M.D.05/17/2024 7:28 PM Dictation Location: [place] [address] Any impression(s) listed above is documentation that was entered by the reading physician into a diagnostic report(s) for Kusum Huerta. I have reviewed the report(s) and am incorporating any findings in the treatment plan of this patient where applicable. A&P - Nephrology Assessment/Plan (1) Acute kidney injury superimposed on chronic kidney disease: Plan: Patient has CKD stage IIIb. SHANKAR is likely from depleted intravascular volume. No UA. Serum creatinine peaked at 2.4 mg deciliter. Lab from this morning revealed potassium 1.96 mg deciliter. It is unknown if the patient has a proteinuria and/or hematuria. No urine indicis. There has been no urinary obstructive symptoms. I doubt the patient has a glomerulonephritis and or obstructive nephropathy (2) Metabolic acidosis: Plan: This is likely from SHANKAR on CKD. Patient is currently on isotonic sodium bicarb drip (3) Ischemic cardiomyopathy: Plan: Patient seems compensated from cardiac standpoint. Home Lasix, hydrochlorothiazide and spironolactone and lisinopril are all on hold. Patient continues to be on room air (4) Anemia: Plan: Patient follows with outpatient hematology clinic for SAWYER injection as needed. Hemoglobin today 9.6 g deciliter. Patient denies active bleeding (5) HTN (hypertension): Plan: Currently only on amlodipine 10 mg p.o. daily, metoprolol 50 mg twice daily. Blood pressure seems adequate. No fluid overload. Seems compensated from cardiac standpoint (6) Chest pain: Plan: * Patient presented with chest pain. Patient has history of coronary disease with history of CABG and PCI. EKG showed some ischemic changes I sensitive troponin slight elevated at 37. Cardiology is following the patient and the plan to do outpatient cardiac stress test Plan * Kidney function improved to baseline with intravascular volume expansion. Creatinine peaked at 2.4 mg deciliter. Serum creatinine is trending down to 1.5 mg deciliter which I believe is her baseline * Will stop IV fluid. * Noted high blood pressure this morning. Will start lisinopril 40 mg p.o. daily and Lasix 20 mg p.o. daily. Continue holding home spironolactone hydrochlorothiazide Patient can be discharged from nephrology standpoint. Please discharge the patient with the current dose of metoprolol, Norvasc, lisinopril and Lasix. Please continue holding Aldactone and hydrochlorothiazide at discharge. Patientis scheduled to have outpatient cardiac stress test as per the tubing oiler Documented By: Elyane Stoddard MD 05/18/24 1251 Signed By: <Electronically signed by Elayne Stoddard MD> 05/18/24 1256 [facility] Work Phone: 1(283) 499-439906-25-2024 Consult note Author Elayne Stoddard [facility] May 17, 2024 2:07pm Note Date/Time May 17, 2024 2:08 pm [facility] [address] [place] [address] Nephrology Consult Note Signed Patient: Kusum Huerta MR#: [id number] : 1950 Acct:[id number] Age/Sex: 74 / F Adm Date: 4 Loc: Room: [address] [place] [address] Type: ADM IN Attending Dr: Shahzad Gomez MD Copies to: MD Shahzad Benton MD Shaikh Fawwad, MD~ Providers Consult Date: 05/17/24 Requesting Provider: Shahzad Gomez MD Primary Care Provider: Shaikh Daphne MD HPI Reason for Consult: Acute kidney injury on chronic kidney disease History of Present Illness: This is 74-year-old female patient with 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 Patient was seen as new patient earlier this months in my office. CKD was contributed to hypertensive nephropathy and possible SHANKAR from IVIG. Patient presented to the hospital with sudden onset of chest pain. EKG at admission revealed T wave inversions some of the leads. Chest x-ray revealed bilateral scattered pulmonary granulomas. In the emergency room creatinine was 2.4 mg deciliter. Patient was given a liter of IV fluid and kept on maintenanceIV fluid. Lab from this morning reviewed. Creatinine 1.96 mg deciliter, serum bicarb 15.1, BUN 52 potassium 4.7 and sodium 140. Hemoglobin 9.6 g deciliter. Patient follows with hematology clinic for SAWYER injection as indicated. Renal team was consulted to help managing SHANKAR. I reviewed the patient's home medications. She is on Norvasc, atorvastatin, Eliquis, vitamin B12, iron supplement, Lasix, hydrochlorothiazide, lisinopril, metoprolol, spironolactone and IVIG. Cardiology service was consulted and the plan to do outpatient cardiac stress test. Patient stated she has been making urine. She did not notice reduction in urineoutput. No NSAID use. No recent IV contrast exposure. Review of Systems Review of Systems Review of systems: 12 system review is negative today [facility] Medical History COVID Skin cancer Back pain Arthritis Hyperlipidemia C. difficile diarrhea Heart attack HTN (hypertension) Surgical History History of orthopedic surgery History of cardiac catheterization Hx of cholecystectomy Total knee replacement status History of appendectomy H/O: hysterectomy H/O heart artery stent Family History (Updated 05/16/24 @ 23:52 by Yulia Jacob APRN) Mother , Hx of heart attack, COPD, and heart surgery Heart disease COPD (chronic obstructive pulmonary disease) Myocardial infarction Father , at 64 in his sleep, had heart surgery in his 50s History of heart surgery Heart disease COPD (chronic obstructive pulmonary disease) Myocardial infarction Sister Myocardial infarction Father Hypertension Diabetes Family/Other Legacy FamHx Problem: Sister MA :2 sons -1 auto accident/1 pulmonary fibrosis:daughter-BERTA Mother Hypertension Son Hypertension Heart disease Sister Heart disease Social History Smoking Status: Former smoker Tobacco Type: cigarettes Substance Use Type: Opiates Substance Abuse Comment: currently prescribed suboxone, states last film on Thursday Meds Medications & Allergies Allergies No Known Allergies Allergy (Verified 05/04/24 08:20) Home Medications nitroglycerin 0.4 mg sublingual tablet 0.4 mg sublingual Q5M PRN Chest Pain 30 days #25 tabs 10/14/19 [Rx Confirmed 05/16/24] aspirin 81 mg chewable tablet 81 mg PO QAM 10/07/20 [History Confirmed 05/16/24] acetaminophen 325 mg tablet 650 mg (2 x 325 mg) PO Q6H PRN Fever >101 #0 tabs 09/09/20 [Rx Confirmed 05/16/24] atorvastatin 80 mg tablet 80 mg PO QPM 30 days #30 tabs 04/18/22 [Rx Confirmed 05/16/24] albuterol sulfate 90 mcg/actuation aerosol inhaler 2 puff inhalation Q4HR PRN shortness of breath or wheezing 05/04/24 [History Confirmed 05/16/24] amlodipine 5 mg tablet 10 mg PO DAILY 05/04/24 [History Confirmed 05/16/24] apixaban 2.5 mg tablet (Eliquis) 2.5 mg PO BID 05/04/24 [History Confirmed 05/16/24] buprenorphine 8 mg-naloxone 2 mg sublingual film See Rx Instructions sublingual DAILY 05/04/24 [History Confirmed 05/16/24] cyanocobalamin (vitamin B-12) 500 mcg tablet 500 mcg PO DAILY 05/04/24 [History Confirmed 05/16/24] ferrous sulfate 325 mg (65 mg iron) tablet (FeroSul) 325 mg PO DAILY 05/04/24 [History Confirmed 05/16/24] fluconazole 150 mg tablet 150 mg PO QWEEK 05/04/24 [History Confirmed 05/16/24] furosemide 20 mg tablet 20 mg PO DAILY 05/04/24 [History Confirmed 05/16/24] hydrochlorothiazide 12.5 mg tablet 12.5 mg PO DAILY 05/04/24 [History Confirmed 05/16/24] immune glob,gamma (IgG) 10 %-gly-IgA over 50 mcg/mL injection solution (Gammagard Liquid) 50 g IV .COMPLEX 05/04/24 [History Confirmed 05/16/24] lisinopril 40 mg tablet 40 mg PO DAILY 05/04/24 [History Confirmed 05/16/24] metoprolol tartrate 50 mg tablet 50 mg PO BID 05/04/24 [History Confirmed 05/16/24] ondansetron HCl 4 mg tablet 4 mg PO Q8HR PRN nausea and vomiting 05/04/24 [History Confirmed 05/16/24] pregabalin 75 mg capsule 75 mg PO BID 05/04/24 [History Confirmed 05/16/24] spironolactone 25 mg tablet 25 mg PO DAILY 05/04/24 [History Confirmed 05/16/24] thiamine HCl (vitamin B1) 100 mg tablet 100 mg PO DAILY 05/04/24 [History Confirmed 05/16/24] tizanidine 4 mg tablet 4 mg PO Q8HR PRN pain 05/04/24 [History Confirmed 05/16/24] clopidogrel 75 mg tablet (Plavix) 75 mg PO DAILY 30 days #30 tabs 05/17/24 [Rx] nitroglycerin 0.2 mg/hr transdermal 24 hour patch (Nitro-Dur) 1 patch transdermal DAILY 30 days #30 ea 05/17/24 [Rx] Active Medications: Active Medications Acetaminophen (Acetaminophen 500 Mg Tablet) 1,000 mg PO Q6HR PRN PRN Reason: Pain Scale 1 - 3 or fever Stop: 05/16/25 21:13 Last Admin: 05/17/24 09:16 Dose: 1,000 mg Amlodipine Besylate (Amlodipine 10 Mg Tablet) 10 mg PO DAILY KRYSTYNA Stop: 05/17/25 08:59 Last Admin: 05/17/24 08:38 Dose: 10 mg Aspirin (Aspirin 81 Mg Tab.Chew) 81 mg PO QAM KRYSTYNA Stop: 05/17/25 08:59 Last Admin: 05/17/24 08:38 Dose: 81 mg Atorvastatin Calcium (Atorvastatin 80 Mg Tablet) 80 mg PO QPM KRYSTYNA Stop: 05/17/25 20:59 Ferrous Sulfate (Ferrous Sulfate 324 Mg Tablet.Dr) 324 mg PO DAILY KRYSTYNA Stop: 05/17/25 08:59 Last Admin: 05/17/24 08:38 Dose: 324 mg Heparin Sodium (Porcine) (Heparin 5,000 Unit/Ml Vial) 5,000 unit SUBCUT Q8HR KRYSTYNA Stop: 05/17/25 05:59 Last Admin: 05/17/24 05:45 Dose: 5,000 unit Sodium Bicarbonate 150 meq/ (Dextrose) 1,150 mls @ 75 mls/hr IV .[id number] KRYSTYNA Stop: 05/17/25 11:29 Last Admin: 05/17/24 11:43 Dose: 75 mls/hr Metoprolol Tartrate (Metoprolol Tartrate 50 Mg Tablet) 50 mg PO BID KRYSTYNA Stop: 05/17/25 08:59 Last Admin: 05/17/24 08:38 Dose: 50 mg Nitroglycerin (Nitroglycerin 0.4 Mg Tab.Subl) 0.4 mg SUBLINGUAL Q5M PRN PRN Reason: Chest Pain Stop: 05/17/25 00:06 Pregabalin (Pregabalin 75 Mg Capsule) 75 mg PO BID KRYSTYNA Stop: 11/13/24 08:59 Last Admin: 05/17/24 08:38 Dose: 75 mg Sodium Chloride (Sodium Chloride 0.9 % 10 Ml Syringe) 0 ml IV-PUSH PRN PRN PRN Reason: Flush Stop: 05/16/25 21:13 Tizanidine HCl (Tizanidine 4 Mg Tablet) 4 mg PO Q8HR PRN PRN Reason: pain Stop: 05/17/25 00:06 Exam Physical Exam Vital Signs: Temp Pulse Resp BP Pulse Ox O2 Del Method 97.8 F 77 20 148/72 H 95 Room Air 05/17/24 11:39 05/17/24 11:39 05/17/24 11:39 05/17/24 11:39 05/17/24 11:39 05/17/24 11:39 Narrative: General: No acute distress Head :atraumatic normocephalic Eyes: PERRLA. Neck: no JVD no bruit. Heart: S1-S2. RRR Respiratory: Clear to auscultation. No wheezing. No crackles Abdomen: Soft, positive bowel sounds,no tenderness. Neurology: Awake alert oriented x3. No focal deficits Extremity. No cyanosis. No edema Skin: No skin rash Results - Nephrology Labs 05/17/24 10:12 05/17/24 06:53 Labs: 05/17/24 05/17/24 06:53 12:10 BUN 52 H Creatinine 1.96 H Urine Color Light-yellow Urine Appearance Clear Urine pH 5.5 Ur Specific Kitzmiller 1.022 Urine Protein 30 H Urine Glucose (UA) Normal Urine Ketones Trace H Urine Occult Blood Negative Urine Nitrite Negative Ur Leukocyte Esterase Negative Urine RBC 1-2 Urine WBC 1-2 Urine Bacteria None seen Radiology Impressions Impressions - last 24 hours: Any impression(s) listed above is documentation that was entered by the reading physician into a diagnostic report(s) for Kusum Huerta. I have reviewed the report(s) and am incorporating any findings in the treatment plan of this patient where applicable. A&P - Nephrology Assessment/Plan (1) Acute kidney injury superimposed on chronic kidney disease: Plan: Patient has CKD stage IIIb. SHANKAR is likely from depleted intravascular volume. No UA. Serum creatinine peaked at 2.4 mg deciliter. Lab from this morning revealed potassium 1.96 mg deciliter. It is unknown if the patient has a proteinuria and/or hematuria. No urine indicis. There has been no urinary obstructive symptoms. I doubt the patient has a glomerulonephritis and or obstructive nephropathy (2) Metabolic acidosis: Plan: This is likely from SHANKAR on CKD. Patient is currently on isotonic sodium bicarb drip (3) Ischemic cardiomyopathy: Plan: Patient seems compensated from cardiac standpoint. Home Lasix, hydrochlorothiazide and spironolactone and lisinopril are all on hold. Patient continues to be on room air (4) Anemia: Plan: Patient follows with outpatient hematology clinic for SAWYER injection as needed. Hemoglobin today 9.6 g deciliter. Patient denies active bleeding (5) HTN (hypertension): Plan: Currently only on amlodipine 10 mg p.o. daily, metoprolol 50 mg twice daily. Blood pressure seems adequate. No fluid overload. Seems compensated from cardiac standpoint (6) Chest pain: Plan: * Patient presented with chest pain. Patient has history of coronary disease with history of CABG and PCI. EKG showed some ischemic changes I sensitive troponin slight elevated at 37. Cardiology is following the patient and the plan to do outpatient cardiac stress test Plan * Kidney function improved with intravascular volume expansion. Creatinine peaked at 2.4 mg deciliter. Serum creatinine is trending down * Continue holding home lisinopril for now. * Continue isotonic sodium bicarb drip but at lower rate 75 cc/h. * Patient seems compensated from cardiac standpoint. Continue holding hydrochlorothiazide, spironolactone and Lasix until tomorrow * Continue accurate urine output documentation. * Blood pressure is well-controlled. Patient currently on metoprolol and amlodipine. Will continue to monitor blood pressure closely while off home diuretics and on IV fluid * Continue to monitor H&H. No need for blood transfusion. No need for SAWYER. * Check CBC along with renal function panel in a.m. Thank you for allowing me to participate in Mrs. Huerta's care. Renal team will continue to follow. Call if any question or concern Documented By: Elayne Stoddard MD 05/17/24 1356 Signed By: <Electronically signed by Elayne Stoddard MD> 05/17/24 1408 [facility] Work Phone: 1(796) 891-810706-25-2024 Progress note Author Shahzad Gomez [facility] May 17, 2024 11:41am Note Date/Time May 17, 2024 10:5 1am [facility] [address] [place] [address] Hospitalist Progress Note Signed with Addenda Patient: Kusum Huerta MR#: [id number] : 1950 Acct:[id number] Age/Sex: 74 / F Adm Date: 4 Loc: Room: [address] [place] [address] Type: ADM IN Attending Dr: Shahzad Gomez MD Copies to: ~ ADDENDUM1 Blood gas reviewed showed non-anion gap metabolic acidosis, ph 7.28. Ordered IV bicarb push 50 meq x 1 followed by switching LR to Bicarb drip. Lactate WNL. Check UA, Ucr, Chetan. Nephrology recs and input to follow. Per cardio, no plan forintervention at this time. Continue to optimize kidney function and electrolytes. Restarted on diet. Addendum Documented By: Shahzad Gomez MD 05/17/24 1141 Addendum Signed By: <Electronically signed by Shahzad Gomez MD> 05/17/24 1141 Date of Service: 05/17/2024 Subjective Subjective Narrative: Patient was seen and evaluated at bedside, she was transferred from [facility] to our facility for cardiology evaluation and workup given her elevatedtroponin and cardiac history. Today patient denies chest pain here, or nausea, vomiting, denies abdominal pain or diarrhea. BP slightly elevated. Troponin levels 35>36>37. Cardiology following. pending Echo. BUN/Cr improving with IV fluids but still with metabolic acidosis. Will get nephrology for further evaluation. Exam Physical Exam Vital Signs: Temp Pulse Resp BP Pulse Ox O2 Del Method 98.1 F 95 20 165/81 H 96 Room Air 05/17/24 08:35 05/17/24 08:35 05/17/24 08:35 05/17/24 08:35 05/17/24 08:35 05/17/24 08:35 Narrative: Const General: cooperative HEENT Normal oropharyngeal mucosa without any ulcers or exudates Eyes: Conjunctiva normal Pulmonary Auscultation: clear to auscultation , no crackles, no wheezes Cardiovascular Rate: normal rate Rhythm: regular rhythm Heart Sounds: S1 normal, S2 normal and no murmurs GI Inspection: non-distended Palpation: soft, not firm and nontender. No rigidity or rebound. Deferred Neuro General: alert, awake and oriented x3. No obvious new focal deficit. Chronic LE weakness (underlying GBS on Tx) Musculoskeletal: normal range of motion Extrem General: no cyanosis, no pedal edema Psych Appearance: appropriate affect. Grossly normal Objective Lab Results 05/17/24 10:12 05/17/24 06:53 Meds Allergies and Active Meds Allergies No Known Allergies Allergy (Verified 05/04/24 08:20) Active Meds: Active Medications Generic Name Dose Route Start Last Admin Trade Name Freq PRN Reason Stop Dose Admin Acetaminophen 1,000 mg 05/16/24 21:14 05/17/24 09:16 Acetaminophen 500 Mg Tablet PO 05/16/25 21:13 1,000 mg Q6HR PRN Administration Pain Scale 1 - 3 or fever Amlodipine Besylate 10 mg 05/17/24 09:00 05/17/24 08:38 Amlodipine 10 Mg Tablet PO 05/17/25 08:59 10 mg DAILY KRYSTYNA Administration Aspirin 81 mg 05/17/24 09:00 05/17/24 08:38 Aspirin 81 Mg Tab.Chew PO 05/17/25 08:59 81 mg QAM KRYSTYNA Administration Atorvastatin Calcium 80 mg 05/17/24 21:00 Atorvastatin 80 Mg Tablet PO 05/17/25 20:59 QPM KRYSTYNA Ferrous Sulfate 324 mg 05/17/24 09:00 05/17/24 08:38 Ferrous Sulfate 324 Mg Tablet. PO 05/17/25 08:59 324 mg DAILY KRYSTYNA Administration Heparin Sodium (Porcine) 5,000 unit 05/17/24 06:00 05/17/24 05:45 Heparin 5,000 Unit/Ml Vial SUBCUT 05/17/25 05:59 5,000 unit Q8HR KRYSTYNA Administration Lactated Ringer's 1,000 mls @ 75 mls/hr 05/17/24 00:15 05/17/24 01:49 Lactated Ringers IV 05/17/24 13:34 75 mls/hr .[id number] KRYSTYNA Administration Magnesium Sulfate 2 gm in 50 mls @ 600 mls/hr 05/17/24 10:47 Magnesium Sulf 2gm-*Swfi* IV 05/17/24 10:51 ONCE ONE Metoprolol Tartrate 50 mg 05/17/24 09:00 05/17/24 08:38 Metoprolol Tartrate 50 Mg Tablet PO 05/17/25 08:59 50 mg BID KRYSTYNA Administration Nitroglycerin 0.4 mg 05/17/24 00:07 Nitroglycerin 0.4 Mg Tab.Subl SUBLINGUAL 05/17/25 00:06 Q5M PRN Chest Pain Pregabalin 75 mg 05/17/24 09:00 05/17/24 08:38 Pregabalin 75 Mg Capsule PO 11/13/24 08:59 75 mg BID KRYSTYNA Administration Sodium Chloride 0 ml 05/16/24 21:14 Sodium Chloride 0.9 % 10 Ml Syringe IV-PUSH 05/16/25 21:13 PRN PRN Flush Tizanidine HCl 4 mg 05/17/24 00:07 Tizanidine 4 Mg Tablet PO 05/17/25 00:06 Q8HR PRN pain A&P - Hospitalist Assessment/Plan (1) Chest pain: (2) SHANKAR (acute kidney injury): (3) Chronic kidney disease, stage 3b: (4) CAD (coronary artery disease): (5) HTN (hypertension): Plan Chest pain, concerning for ACS CAD?history of 1 stent ? Trend troponins 35>36>37> pending repeat ? Echo pending ? Cardiology following ? Patient on low dose Eliquis 2.5 mg BID for DVT ppx according to her and was taken off Antiplatelets since last November according to her due to low count . She states that she underwent full GI workup with EGD and colonoscopy with no obvious evidence of bleeding or source of her anemia. SHANKAR on CKD stage III?current creatinine 2.45, baseline ~1.5 ? IV hydration ? Hypomagnesemia 1.6. Added IV mag - Bicarb of 15, AG 15.6. Pt with metabolic acidosis. Will check blood gas and lactic acid -Consult nephrology for further input, and need to optimize kidney function for any anticipated cardiac interventions Chronic conditions?resume home meds as appropriate HTN?amlodipine, metoprolol, Hold HCTZ, lisinopril, spironolactone, furosemide due to SHANKAR Anemia of chronic disease?ferrous sulfate HLD?atorvastatin Chronic pain?pregabalin DVT PPx-SCDs, heparin, hold apixaban (she on it for DVT ppx according to her since November when diagnosed with GBS) Diet order-regular, NPO midnight CODE STATUS-full code Discussed with patient at bedside, all question answered, patient in agreement the above plan Documented By: Shahzad Gomez MD 05/17/24 10 50 Signed By: <Electronically signed by Shahzad Gomez MD> 05/17/[address] [facility] Work Phone: 1(211) 288-116606-25-2024 Consult note Author Gabriella Contreras [facility] May 17, 2024 11:21am Note Date/Time May 17, 2024 10:0 2am [facility] [address] [place] [address] Cardiology Consult Note Signed Patient: Kusum Huerta MR#: [id number] : 1950 Acct:[id number] Age/Sex: 74 / F Adm Date: 4 Loc: Room: [address] [place] [address] Type: ADM IN Attending Dr: Shahzad Gomez MD Copies to: MD Claudia Kirkland DO, RES MD Gabriella Garcia DO~ Cardiology HPI History of Present Illness Consult Date: 05/17/24 Reason for Consult: Chest pain HPI: Ms. Huerta is a 74 year old female that was seen by request of hospitalist for chest pain. Patient seen and examined with medical staff specialist Dr. Williamson, I concurwith her evaluation, exam, management and note we have evaluated and examined the patient concurrently. 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 She has a history ofprior revascularization of the RCA predating 2018, with revascularization, stentthrombosis for the second time in 2021 with the above primary thrombectomy, and has been stable since that time. 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 She denies any other cardiac history. Reports family history of coronary artery disease in her parents and sister. Shefollows with Dr. Ibarra. Patient was transferred from [facility] emergency room on 04/15/2024. Shereports yesterday at approximately 1300 she was sitting on her porch and developed midsternal chest pain/pressure. Patient reports this was worse with movement and palpation of the chest. Denies any radiation of pain. Denied accompanying shortness of breath, diaphoresis. She did have some nausea during this episode. Patient received aspirin and nitro by EMS. Her initial troponin was 129 which trended to 126. Chest x-ray showed no acute cardiopulmonary process, scattered pulmonary nodules?size and density suggest granulomas. Her EKG showed sinus tachycardia at [address]ressions in aVR and aVL. Her initial creatinine was 2.45 which is improved to 1.96. Troponin levels trended with most recent level 37.5. Troponin levels are flat at 36?37, and EKGs nonischemic and normal. Patient states she still has some minimal chest pain with movements. Denies any palpitations, lightheadedness, shortness of breath. She does report a headache she has had since her IVIG infusion on Thursday. Given her kidney function, will not proceed with cardiac catheterization. Her lisinopril, spironolactone, lasix, and HCTZ are currently held for her decreasedkidney function. Will defer management of these medications to nephrology. Will discontinue aspirin and start Plavix. Will start a long acting nitrate. Plan for outpatient stress testing. Review of Systems Review of Systems All other systems reviewed & are negative unless noted below or in HPI [facility] Medical History COVID Skin cancer Back pain Arthritis Hyperlipidemia C. difficile diarrhea Heart attack HTN (hypertension) Surgical History History of orthopedic surgery History of cardiac catheterization Hx of cholecystectomy Total knee replacement status History of appendectomy H/O: hysterectomy H/O heart artery stent Family History (Updated 05/16/24 @ 23:52 by Yulia Jacob APRN) Mother , Hx of heart attack, COPD, and heart surgery Heart disease COPD (chronic obstructive pulmonary disease) Myocardial infarction Father , at 64 in his sleep, had heart surgery in his 50s History of heart surgery Heart disease COPD (chronic obstructive pulmonary disease) Myocardial infarction Sister Myocardial infarction Father Hypertension Diabetes Family/Other Legacy FamHx Problem: Sister MA :2 sons -1 auto accident/1 pulmonary fibrosis:daughter-BERTA Mother Hypertension Son Hypertension Heart disease Sister Heart disease Social History Smoking Status: Former smoker Tobacco Type: cigarettes Substance Use Type: Opiates Substance Abuse Comment: currently prescribed suboxone, states last film on Thursday Meds Medications and Allergies Allergies No Known Allergies Allergy (Verified 05/04/24 08:20) Home Medications nitroglycerin 0.4 mg sublingual tablet 0.4 mg sublingual Q5M PRN Chest Pain 30 days #25 tabs 10/14/19 [Rx Confirmed 05/16/24] aspirin 81 mg chewable tablet 81 mg PO QAM 08/29/20 [History Confirmed 05/16/24] acetaminophen 325 mg tablet 650 mg (2 x 325 mg) PO Q6H PRN Fever >101 #0 tabs 09/09/20 [Rx Confirmed 05/16/24] atorvastatin 80 mg tablet 80 mg PO QPM 30 days #30 tabs 04/18/22 [Rx Confirmed 05/16/24] albuterol sulfate 90 mcg/actuation aerosol inhaler 2 puff inhalation Q4HR PRN shortness of breath or wheezing 05/04/24 [History Confirmed 05/16/24] amlodipine 5 mg tablet 10 mg PO DAILY 05/04/24 [History Confirmed 05/16/24] apixaban 2.5 mg tablet (Eliquis) 2.5 mg PO BID 05/04/24 [History Confirmed 05/16/24] buprenorphine 8 mg-naloxone 2 mg sublingual film See Rx Instructions sublingual DAILY 05/04/24 [History Confirmed 05/16/24] cyanocobalamin (vitamin B-12) 500 mcg tablet 500 mcg PO DAILY 05/04/24 [History Confirmed 05/16/24] ferrous sulfate 325 mg (65 mg iron) tablet (FeroSul) 325 mg PO DAILY 05/04/24 [History Confirmed 05/16/24] fluconazole 150 mg tablet 150 mg PO QWEEK 05/04/24 [History Confirmed 05/16/24] furosemide 20 mg tablet 20 mg PO DAILY 05/04/24 [History Confirmed 05/16/24] hydrochlorothiazide 12.5 mg tablet 12.5 mg PO DAILY 05/04/24 [History Confirmed 05/16/24] immune glob,gamma (IgG) 10 %-gly-IgA over 50 mcg/mL injection solution (Gammagard Liquid) 50 g IV .COMPLEX 05/04/24 [History Confirmed 05/16/24] lisinopril 40 mg tablet 40 mg PO DAILY 05/04/24 [History Confirmed 05/16/24] metoprolol tartrate 50 mg tablet 50 mg PO BID 05/04/24 [History Confirmed 05/16/24] ondansetron HCl 4 mg tablet 4 mg PO Q8HR PRN nausea and vomiting 05/04/24 [History Confirmed 05/16/24] pregabalin 75 mg capsule 75 mg PO BID 05/04/24 [History Confirmed 05/16/24] spironolactone 25 mg tablet 25 mg PO DAILY 05/04/24 [History Confirmed 05/16/24] thiamine HCl (vitamin B1) 100 mg tablet 100 mg PO DAILY 05/04/24 [History Confirmed 05/16/24] tizanidine 4 mg tablet 4 mg PO Q8HR PRN pain 05/04/24 [History Confirmed 05/16/24] clopidogrel 75 mg tablet (Plavix) 75 mg PO DAILY 30 days #30 tabs 05/17/24 [Rx] nitroglycerin 0.2 mg/hr transdermal 24 hour patch (Nitro-Dur) 1 patch transdermal DAILY 30 days #30 ea 05/17/24 [Rx] Exam Physical Exam Vital Signs: Temp Pulse Resp BP Pulse Ox O2 Del Method 98.1 F 95 20 165/81 H 96 Room Air 05/17/24 08:35 05/17/24 08:35 05/17/24 08:35 05/17/24 08:35 05/17/24 08:35 05/17/24 08:35 Const General: cooperative and no acute distress Orientation: alert, awake and oriented x3 HEENT Head: normal to inspection Neck Neck: normal visual inspection Chest Chest palpation & inspection: normal inspection of the chest Resp Effort & Inspection: normal respiratory effort Auscultation: clear to auscultation bilaterally, no crackles and no wheezes Cardio Rate: regular rate Rhythm: regular rhythm Heart Sounds: no murmurs GI Inspection: normal to inspection Neuro General: patient alert, patient awake and patient oriented x3 Speech: speech normal Results - Cardiology Labs 05/17/24 10:12 05/17/24 06:53 Lab results: Lipids 05/17/24 Range/Units 06:53 Triglycerides 106 (0-149) mg/dL Cholesterol 111 L (140-200) mg/dL HDL Cholesterol 29 (23-92) mg/dL Cholesterol/HDL Ratio 3.8 (<5.0) Comprehensive Metabolic Panel 05/17/24 Range/Units 06:53 Sodium 140 (136-145) mmol/L Potassium 4.7 (3.5-5.1) mmol/L Chloride 114 H (98-107) mmol/L Carbon Dioxide 15.1 L (21.0-31.0) mmol/L BUN 52 H (7-25) mg/dL Creatinine 1.96 H (0.60-1.20) mg/dL Glucose 80 (70-100) mg/dL Calcium 8.5 L (8.6-10.3) mg/dL Intake and Output 05/16/24 05/17/24 05/17/24 23:59 07:59 15:59 Intake Total 0 / 0 Balance 0 / 0 Intake: Oral 0 / 0 Other: # Incontinent Voids 1 # Bowel Movements 0 Weight 81.9 kg 87.4 kg Date of Last Bowel Movement 05/16/24 05/16/24 Patient Weight 05/17/24 23:59 Weight 87.4 kg A&P - Cardiology (1) Chest pain: Code(s): R07.9 - Chest pain, unspecified (2) CAD (coronary artery disease): Code(s): I25.10 - Atherosclerotic heart disease of [place] coronary artery without angina pectoris (3) SHANKAR (acute kidney injury): Code(s): N17.9 - Acute kidney failure, unspecified (4) Chronic kidney disease, stage 3b: Code(s): N18.32 - Chronic kidney disease, stage 3b (5) HTN (hypertension): Code(s): I10 - Essential (primary) hypertension (6) Chronic anticoagulation: Code(s): Z79.01 - residential (current) use of anticoagulants Plan See above Plan for outpatient stress testing after discharge Documented By: Gabriella Contreras DO 05/17/24 0940 Signed By: <Electronically signed by Gabriella Contreras DO> 05/17/24 1121 <Electronically signed by DO ELLIE Ingramanthedson Williamson> 05/17/24 1107 [facility] Work Phone: 1(139) 408-209206-25-2024 History and physical note Author Isabelle Dale [facility] May 17, 2024 7:02am Note Date/Time May 16, 2024 9:19 pm [facility] [address] [place] [address] Hospitalist H&P Signed Patient: Kusum Huerta MR#: [id number] : 1950 Acct:[id number] Age/Sex: 74 / F Adm Date: 4 Loc: Room: [address] [place] [address] Type: ADM IN Attending Dr: Isabelle Dale MD Copies to: LORRIE Contreras MD Shaikh Fawwad, MD~ HPI DATE OF EXAMINATION: 05/16/24 CHIEF COMPLAINT: chest pain HISTORY OF PRESENT ILLNESS: Ms. 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 Patient seen and examined at bedside, currently complains of a headache that she has had since Thursday. She states she normally gets up from IVIG treatment for her GBS. States she has 3 or 4 more treatments left, started in November, was hospitalized at [facility] and diagnosed with GBS. She states that she is currently on apixaban for blood clot prevention due to her GBS. She states that she just got home and was sitting on the porch when she had sudden onset of midsternal chest pain. Reports it felt like someone was sitting on her chest. She states that movementaggravated the pain, she attempted to nitro at home without relief. Her [id number]-gi-noz called EMS who also medicated her with nitro and aspirin. She states at 1 point she did have pain that went down her right arm but that stopped. She currently denies substernal chest pain, does not complain of pain to lateral right and left chest. Lateral chest pain worse with palpation. Reports quit smoking in 1993, denies alcohol use, denies illicit drug use. Did report to nursing that she used to have a problem with prescription medications and was placed on Suboxone. She states she is quitting Suboxone, her last stripwas on Thursday. Patient states she has physical therapy that comes once a week to her home with her difficulty ambulating. She states that she can take a couple of steps, stand and pivot with her walker to wheelchair and bathroom. Reports the home health nurse discharged herself last Thursday. [facility] chart review, patient arrived to the [facility] emergencyroom with complaints of chest pain. Chest x-ray showed no acute cardiopulmonaryprocess, scattered pulmonary nodules?size and density suggest granulomas. EKG was sinus tachycardia at 103, ST depression noted in leads aVR and aVL. CBC with an H&H of 10.2/34.9, otherwise unremarkable. Coags were unremarkable. CMPwith a serum bicarb of 16, 9, BUN 53, creatinine 2.45. Troponin 129.1. Repeat troponin 126.2. Patient was medicated with 324 aspirin, sublingual nitro per the EMS prior to arrival to the [facility]. Patient was medicated with morphine, Zofran. Transferred here to [facility] under the care of the hospitalist team. Review of Systems Review of Systems Review of systems: A 10 point review of systems was obtained, negative unless noted in the HPI or below. [facility] Medical History COVID Skin cancer Back pain Arthritis Hyperlipidemia C. difficile diarrhea Heart attack HTN (hypertension) Surgical History History of orthopedic surgery History of cardiac catheterization Hx of cholecystectomy Total knee replacement status History of appendectomy H/O: hysterectomy H/O heart artery stent Family History (Updated 05/16/24 @ 23:52 by Yulia Jacob APRN) Mother , Hx of heart attack, COPD, and heart surgery Heart disease COPD (chronic obstructive pulmonary disease) Myocardial infarction Father , at 64 in his sleep, had heart surgery in his 50s History of heart surgery Heart disease COPD (chronic obstructive pulmonary disease) Myocardial infarction Sister Myocardial infarction Father Hypertension Diabetes Family/Other Legacy FamHx Problem: Sister MA :2 sons -1 auto accident/1 pulmonary fibrosis:daughter-BERTA Mother Hypertension Son Hypertension Heart disease Sister Heart disease Social History Smoking Status: Former smoker Tobacco Type: cigarettes Substance Use Type: Opiates Substance Abuse Comment: currently prescribed suboxone, states last film on Thursday Meds Medications and Allergies Allergies No Known Allergies Allergy (Verified 05/04/24 08:20) Home Medications nitroglycerin 0.4 mg sublingual tablet 0.4 mg sublingual Q5M PRN Chest Pain 30 days #25 tabs 10/14/19 [Rx Confirmed 05/16/24] aspirin 81 mg chewable tablet 81 mg PO QAM 08/29/20 [History Confirmed 05/16/24] acetaminophen 325 mg tablet 650 mg (2 x 325 mg) PO Q6H PRN Fever >101 #0 tabs 09/09/20 [Rx Confirmed 05/16/24] atorvastatin 80 mg tablet 80 mg PO QPM 30 days #30 tabs 04/18/22 [Rx Confirmed 05/16/24] albuterol sulfate 90 mcg/actuation aerosol inhaler 2 puff inhalation Q4HR PRN shortness of breath or wheezing 05/04/24 [History Confirmed 05/16/24] amlodipine 5 mg tablet 10 mg PO DAILY 05/04/24 [History Confirmed 05/16/24] apixaban 2.5 mg tablet (Eliquis) 2.5 mg PO BID 05/04/24 [History Confirmed 05/16/24] buprenorphine 8 mg-naloxone 2 mg sublingual film See Rx Instructions sublingual DAILY 05/04/24 [History Confirmed 05/16/24] cyanocobalamin (vitamin B-12) 500 mcg tablet 500 mcg PO DAILY 05/04/24 [History Confirmed 05/16/24] ferrous sulfate 325 mg (65 mg iron) tablet (FeroSul) 325 mg PO DAILY 05/04/24 [History Confirmed 05/16/24] fluconazole 150 mg tablet 150 mg PO QWEEK 05/04/24 [History Confirmed 05/16/24] furosemide 20 mg tablet 20 mg PO DAILY 05/04/24 [History Confirmed 05/16/24] hydrochlorothiazide 12.5 mg tablet 12.5 mg PO DAILY 05/04/24 [History Confirmed 05/16/24] immune glob,gamma (IgG) 10 %-gly-IgA over 50 mcg/mL injection solution (Gammagard Liquid) 50 g IV .COMPLEX 05/04/24 [History Confirmed 05/16/24] lisinopril 40 mg tablet 40 mg PO DAILY 05/04/24 [History Confirmed 05/16/24] metoprolol tartrate 50 mg tablet 50 mg PO BID 05/04/24 [History Confirmed 05/16/24] ondansetron HCl 4 mg tablet 4 mg PO Q8HR PRN nausea and vomiting 05/04/24 [History Confirmed 05/16/24] pregabalin 75 mg capsule 75 mg PO BID 05/04/24 [History Confirmed 05/16/24] spironolactone 25 mg tablet 25 mg PO DAILY 05/04/24 [History Confirmed 05/16/24] thiamine HCl (vitamin B1) 100 mg tablet 100 mg PO DAILY 05/04/24 [History Confirmed 05/16/24] tizanidine 4 mg tablet 4 mg PO Q8HR PRN pain 05/04/24 [History Confirmed 05/16/24] Exam Physical Exam Vital Signs: Temp Pulse Resp BP Pulse Ox O2 Del Method 98.6 F 91 16 160/75 H 95 Room Air 05/16/24 20:50 05/16/24 20:50 05/16/24 20:50 05/16/24 20:50 05/16/24 20:50 05/16/24 20:50 Narrative: CONST- Appears well -developed and well nourished. Morbidly obese?BMI 33 HEAD - Normocephalic and atraumatic EENT-Sclera nonicteric, conjunctive are non-erythemic, moist oral mucosa, pharynx clear NECK-Supple, no cervical lymphadenopathy CARDIAC-normal rate, regular rhythm, S1 & S2. Murmur PULM-diminished without wheeze or rhonchi, RA, no accessory muscle use or cough noted ABD - Soft. Bowel sounds are normal. No distention. No tenderness EXTREM-no edema BLE calves, nontender SKIN- W/D good turgor MS- MAEX4 spontaneously, weakness, inability to ambulate to BLE due to GBS, patient reports standing and pivoting, walking a couple steps NEURO- A&Ox3 speech clear and tongue midline, equal facial symmetry, no focal motor deficits PSYCH-Mood, affect, and behavior appropriate Assessment & Plan Assessment/Plan (1) Chest pain: (2) SHANKAR (acute kidney injury): (3) Chronic kidney disease, stage 3b: (4) CAD (coronary artery disease): (5) HTN (hypertension): Plan Chest pain r/o ACS CAD?history of 1 stent ? Trend troponins ? Echo, EKG in a.m. ? Consult cardiology ? Low-dose aspirin daily SHANKAR on CKD stage III?current creatinine 2.45, baseline ~1.5 ? IV hydration overnight?LR @ 75cc/hr x 1L ? BMP, magnesium in a.m. Chronic conditions?resume home meds as appropriate HTN?amlodipine, metoprolol, Hold HCTZ, lisinopril, spironolactone, furosemide due to SHANKAR Anemia of chronic disease?ferrous sulfate HLD?atorvastatin Chronic pain?pregabalin DVT PPx-SCDs, heparin, hold apixaban Diet order-regular, NPO midnight CODE STATUS-full code IP vs OBS Justification Based on differential dx, clinical care plan, and risk of adverse events, if untreated, in my clinical judgement this patient requires an acute care setting as: INPATIENT because of an expectation of an over 2 midnight stay. Estimated length of stay (# of days): 3 Documented By: Yulia Jacob APRN 05/16/242118 Signed By: <Electronically signed by LORRIE Jacob> 05/17/24 0021 <Electronically signed by Isabelle Dale MD> 05/17/24 0702 [facility] Work Phone: 1(338) 481-702903-22-2024 History of Present illness Narrative* Josr Leon, - 02/12/2024 11:59 PM EDT Patient Name: Kusum Huerta Date of : 1950 Date of Service: 02/12/2024 Facility: [facility] Type of Visit: Skilled Visit Subjective Kusum Huerta is a 73 y.o. female seen today at [facility] facility for No chief complaint onfile. . Kusum was seen again due to abnormal and worsening labs. Recheck of her hemoglobin on Thursday was7.6 and now it is 7.1 today. Her potassium was normal on Thursday at 4.7. GFR actually improved to54. She came in with the history of stage 4 chronic kidney disease. She is on an iron supplement. Her stools are black. She does not have any abdominal pain. 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 She said she has been checked before for blood loss and they do not know where it is coming from. Jackelinewas taking aspirin 325 daily And Plavix in the past but not taking either one here. She says she feels fine. She does not have any dizziness, lightheadedness or shortness a breath. Does not feel likeshe is going to pass out. She is [...] Thursday to get in and also her laborer pipelines. I ordered a CBC for her to get on Thursday. She is to go to the emergency room if she has any dizziness, lightheadedness or shortness a breath or other problems. She agrees to do so. We will plan on discharge tomorrow. She has done well with therapy. ELECTRONICALLY SIGNED BY: Josr Leon DO documented in this encounter[facility]03-[facility]24 History of Present illness Narrative* Josr Leon DO - 02/09/2024 11:59 PM EDT Patient Name: Kusum Huerta Date of : 1950 Date of Service: 02/09/2024 Facility: [facility] Type of Visit: Skilled Visit Subjective Kusum Huerta is a 73 y.o. female seen today at [facility] facility for therapy visit. Kusum is in therapy and doing very well. She walk for 30 ft today with a wheeled walker in therapy.She would like to go home this weekend [...] to 34.9 in adult 10. Atherosclerosis of [place] coronary artery of [place] heart without angina pectoris Recheck potassium tomorrow with CBC. Continue therapy to reach maximum improvement. Possible discharge to home this weekend. Continue other orders as directed. ELECTRONICALLY SIGNED BY: Josr Leon DO documented in this encounterOhio [facility] Hospital03-08-2024 History of Present illness Narrative* Josr Leon DO - 01/29/2024 5:52 PM EST Patient Name: Kusum Huerta Date of : 1950 Date of Service: 01/29/2024 Facility: [facility] Type of Visit: Admission H&P Subjective Kusum Huerta is a 73 y.o. female seen today at [facility] facility for admission H&P. Kusum presents to [facility] from [facility] where she was admitted for adult [...] as she had a wheelchair she used forlong distances. She has no new problems to report tonight. She is eating ok. She doesn't have any CP or SOB. She thought she was drinking enough before she went into the hospital. She is seeing a neurologist and is looking to get IV infusions for her neuropathy. 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, Right cheek Chronic back pain HTN (hypertension) MA (myocardial infarction) ([facility]) 2013 1 stent Obesity Past Surgical History: Procedure Laterality Date APPENDECTOMY CAROTID STENT r/t 1 collapsed 09/2019 CHOLECYSTECTOMY HYSTERECTOMY INJECTION MEDIAL BRANCH NERVE BLOCK: left L45 51 Left 02/25/2019 Performed by Devante Beckman MD at [facility] INJECTION MEDIAL BRANCH NERVE BLOCK: left L45 51 Left 12/31/2018 Performed by Devante Beckman MD at [facility] INJECTION MEDIAL BRANCH NERVE BLOCK: RIGHT [id number] Right 08/27/2018 Performed by Devante Beckman MD at [facility] INJECTION SI JOINT Left 08/12/2019 Performed by Devante Beckman MD at [facility] INJECTION SI JOINT Left SI Joint Left 06/15/2020 Performed by Devante Beckman MD at [facility] RADIO FREQUENCY ABLATION: left L45 51 Left 04/15/2019 Performed by Devante Beckman MD at [facility] RADIO FREQUENCY ABLATION: right [id number] Right 05/02/2019 Performed by Devante Beckman MD at [facility] RIGHT L3/4, 4/5, 5/1 MBB Right 07/23/2018 Performed by Devante Beckman MD at [facility] TOTAL KNEE ARTHROPLASTY Left No family history on file. See med list Allergies: Patient has no known allergies. Code Status: FULL CODE The following portions of the patient's history were reviewed and updated as appropriate: allergies, current medications, past family history, past medical history, past social history, past surgicalhistory, problem list, and medication reconciliation was completed including current medication andpost discharge medication. Review of Systems Constitutional: Negative. [...] kg/m Physical Exam Exam conducted with a carton stapler present (granddaughter present). Constitutional: General: She is [...] be discharged home. Full code. Will follow. STONER HAND will see next week in my absence. ELECTRONICALLY SIGNED BY: Josr Leon DO documented in this encounterOhio Valley Hospital02-07-2024 Telephone encounter Note* Telephone Encounter - Melissa Berger NP - 12/30/2023 1:50 PM EST I called patient and let her know Dr. Ramirez sent in another round of steroids. I left message as noanswer. [facility] Work Phone: 1(590) 470-332302-07-2024 Miscellaneous Notes* Telephone Encounter - Melissa Berger NP - 12/30/2023 1:50 PM EST I called patient and let her know Dr. Ramirez sent in another round of steroids. I left message as noanswer. * Telephone Encounter - Christina Munroe - 12/29/2023 3:01 PM EST Called patient to reschedule EMG tomorrow due to no tech in office. Patient states that she has four days left of steroid and has no more refill. Wanted to let Dr. Ramirez know and wasn't sure if she needed another rx. Please advise. documented in this encounterSt. Louis Behavior[facility] [id number] Telephone encounter Note* Telephone Encounter - Christina Ludwig - 12/29/2023 3:01 PM EST Called patient to reschedule EMG tomorrow due to no tech in office. Patient states that she has four days left of steroid and has no more refill. Wanted to let Dr. Ramirez know and wasn't sure if she needed another rx. Please advise. [facility] [id number] NotePROCEDURE: XR HAND LT MIN 3V, XR WRIST LT MIN 3 [...] Electronically authenticated by: RODERICK ESTRELLA Date: 2022-12-27 15:58[facility]02-04-2023 NotePROCEDURE: XR HAND LT MIN 3V, XR WRIST LT MIN 3 [...] Electronically authenticated by: RODERICK ESTRELLA Date: 2022-12-27 15:58[facility]11-20-2021 Evaluation note* Encounter Date Diagnosis Assessment Notes Treatment Notes Treatment Clinical Notes Sep, Contact with and (suspected) exposure to other viral communicable diseases (ICD-10 - Z20.828) Sep, COVID-19 virus infection (ICD-10 - U07.1) Today you tested positive for the COVID virus. This mean you need to follow all [facility] quarantine guidelines found at coronavirus.[place].g ov. It is important to rest, increase fluids, [...] care instructions given in writting by [facility] Care At Home document. [employer] Other Evaluation note* Diagnosis Iron deficiency anemia due to chronic blood loss Iron deficiency anemia secondary to blood loss (chronic) Idiopathic progressive neuropathy documented in this encounter [facility] HealthcareEvaluation noteNo assessment information availableAcmc [facility] Work Phone: Evaluation note* Diagnosis Acute [...] idiopathic peripheral neuropathy [facility] Diagnosis Acute renal failure superimposed on stage 4 chronic kidney disease, unspecified acute renal failure type ([facility] Primary Congestive heart failure, unspecified HF chronicity, unspecified heart failure type ([facility]) Rhinovirus Rhinovirus infection in conditions classified elsewhere and of unspecified site Primary hypertension Unspecified essential hypertension Anemia associated with chronic renal failure Anemia in chronic kidney disease Hyperkalemia Hyperpotassemia Muscle weakness (generalized) Other abnormalities of gait and mobility Class 1 obesity due to excess calories with serious comorbidity and body mass index (BMI) of 34.0 to 34.9 in adult Atherosclerosis of mi[place] coronary artery of [place] heart without angina pectoris documented [facility] encounter [facility]* Diagnosis Acute renal failure superimposed on stage 4 chronic kidney disease, unspecified acute renal failure type ([facility] Primary Congestive heart failure, unspecified HF chronicity, unspecified heart failure type ([facility]) Anemia associated with chronic renal failure Anemia in chronic kidney disease Hyperkalemia Hyperpotassemia Other abnormalities of gait and mobility Muscle weakness (generalized) documented [facility] encounter [facility]* Diagnosis Onset Date Resolution Status Anemia of renal disease acut e Chronic kidney disease, stage 3b acute Hypertensive nephropathy acu te [facility] Work Phone: Evaluation note* Diagnosis Onset Date Resolution Status Anemia of renal disease acut e Chronic inflammatory demyelinating neuropathy acute Chronic kidney disease, stage 3b acute Hypertensive nephropathy acu te Acute kidney injury superimp osed on chronic kidney disease acute SHANKAR (acute kidney injury) ac gal Anemia acute CAD (coronary artery disease) acute Chest pain acute Chronic anticoagulation acut e Chronic kidney disease, stage 3b acute HTN (hypertension) acute Ischemic cardiomyopathy acut e Metabolic acidosis acute [facility] Work Phone: Evaluation note* Diagnosis Onset Date Resolution Status Anemia of renal disease acut e Chronic inflammatory demyelinating neuropathy acute Chronic kidney disease, stage 3b acute Hypertensive nephropathy acu te Acute kidney injury superimp osed on chronic kidney disease acute SHANKAR (acute kidney injury) ac gal Anemia acute CAD (coronary artery disease) acute Chest pain acute Chronic anticoagulation acut e Chronic kidney disease, stage 3b acute HTN (hypertension) acute Ischemic cardiomyopathy acut e Metabolic acidosis acute Chest pain acute Chest pain at rest acute [facility] Work Phone: History and physical note Author Kali Helton [facility] May 20, 2024 8:01pm Note Date/Time May 20, 2024 6:46 pm [facility] [address] [place] [address] Hospitalist H&P Signed Patient: Kusum Huerta MR#: [id number] : 1950 Acct:[id number] Age/Sex: 74 / F Adm Date: 4 Loc: Room: [address] [place] [address] Type: ADM INOo Attending Dr: Kali Helton MD Copies to: MD Shaikh Daphne Chavis MD~ HPI DATE OF EXAMINATION: 05/20/24 HISTORY OF PRESENT ILLNESS: Patient is 74-year-old female, who presents today to the emergency department complaining of chest discomfort. Patient was discharged 2 days ago, after being hospitalized through [facility] and then transferred to us, with SHANKAR, chest discomfort. She was discharged withplans for outpatient stress test. Since going home, she remains weak. She felt a bit confused, the [id number] stated that similarly to situation in the past where she had UTIs. However she has no urinary symptoms such as dysuria. She did have diarrhea 3-4 times yesterday with liquid stool. No abdominal pain. Remains very nauseated unable to eat anything really. No fever or chills. No respiratory symptoms. Today watching TV, she developed chest pressure. This was associated with some shortness of breath. Presented to the ED with administration of morphine and nitroglycerin was successful in alleviating the pain. However she still has some mild pain at the time of my exam. 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 difficile colitis Dyslipidemia 10 point review of systems negative except as noted Physical exam Patient appears comfortable, in no distress. Skin is normally colored, no icterus, cyanosis or edema noted. Capillary refill is normal. Joints are without any effusion. Abdomen is soft, benign, no rebound or rigidity. No organomegaly. Bowel sounds present. Heart regular, no gallop, rub or JVD. Peripheral pulses present bilaterally. Lungs are clear to auscultation, no rales, ronchi or wheezes. HENT normal Neurological: Patient is awake. Cognition is normal. Cranial nerves are intact. Power is symmetric all extremities, with no focal motor deficit identified on a cursory exam. Psych: affect is normal. EKG Labs imaging reviewed Assessment and plan 1. Nausea, diarrhea. History of C. difficile colitis. Test stool for C. difficile. Start empiric treatment with oral vancomycin untilresults back. 2. Chest pain. Troponin and EKG so far have demonstrated no clear signs of ischemia Continue cardiac monitoring and serial troponins. Given current renal function which is improving, coronary angiogram can be reconsidered. 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 difficile colitis Dyslipidemia [facility] Medical History COVID Skin cancer Back pain Arthritis Hyperlipidemia C. difficile diarrhea Heart attack HTN (hypertension) Surgical History History of orthopedic surgery History of cardiac catheterization Hx of cholecystectomy Total knee replacement status History of appendectomy H/O: hysterectomy H/O heart artery stent Family History (Updated 05/16/24 @ 23:52 by Yulia Jacob APRN) Mother , Hx of heart attack, COPD, and heart surgery Heart disease COPD (chronic obstructive pulmonary disease) Myocardial infarction Father , at 64 in his sleep, had heart surgery in his 50s History of heart surgery Heart disease COPD (chronic obstructive pulmonary disease) Myocardial infarction Sister Myocardial infarction Father Hypertension Diabetes [facility]/Other [facility] Problem: Sister MA :2 sons -1 auto accident/1 pulmonary fibrosis:daughter-BERTA Mother Hypertension Son Hypertension Heart disease Sister Heart disease Social History Smoking Status: Former smoker Tobacco Type: cigarettes Substance Use Type: None Substance Abuse Comment: currently prescribed suboxone, states last film on Thursday Meds Medications and Allergies Allergies No Known Allergies Allergy (Verified 05/20/24 16:38) Home Medications nitroglycerin 0.4 mg sublingual tablet 0.4 mg sublingual Q5M PRN Chest Pain 30 days #25 tabs 10/14/19 [Rx Confirmed 05/20/24] acetaminophen 325 mg tablet 650 mg (2 x 325 mg) PO Q6H PRN Fever >101 #0 tabs 09/09/20 [Rx Confirmed 05/20/24] atorvastatin 80 mg tablet 80 mg PO QPM 30 days #30 tabs 04/18/22 [Rx Confirmed 05/20/24] amlodipine 5 mg tablet 10 mg PO DAILY 05/04/24 [History Confirmed 05/20/24] apixaban 2.5 mg tablet (Eliquis) 2.5 mg PO BID 05/04/24 [History Confirmed 05/20/24] cyanocobalamin (vitamin B-12) 500 mcg tablet 500 mcg PO DAILY 05/04/24 [History Confirmed 05/20/24] ferrous sulfate 325 mg (65 mg iron) tablet (FeroSul) 325 mg PO DAILY 05/04/24 [History Confirmed 05/20/24] fluconazole 150 mg tablet 150 mg PO QWEEK 05/04/24 [History Confirmed 05/20/24] furosemide 20 mg tablet 20 mg PO DAILY 05/04/24 [History Confirmed 05/20/24] hydrochlorothiazide 12.5 mg tablet 12.5 mg PO DAILY 05/04/24 [History Confirmed 05/20/24] immune glob,gamma (IgG) 10 %-gly-IgA over 50 mcg/mL injection solution (Gammagard Liquid) 50 g IV .COMPLEX 05/04/24 [History Confirmed 05/20/24] lisinopril 40 mg tablet 40 mg PO DAILY 05/04/24 [History Confirmed 05/20/24] metoprolol tartrate 50 mg tablet 50 mg PO BID 05/04/24 [History Confirmed 05/20/24] ondansetron HCl 4 mg tablet 4 mg PO Q8HR PRN nausea and vomiting 05/04/24 [History Confirmed 05/20/24] pregabalin 75 mg capsule 75 mg PO BID 05/04/24 [History Confirmed 05/20/24] spironolactone 25 mg tablet 25 mg PO DAILY 05/04/24 [History Confirmed 05/20/24] thiamine HCl (vitamin B1) 100 mg tablet 100 mg PO DAILY 05/04/24 [History Confirmed 05/20/24] tizanidine 4 mg tablet 4 mg PO Q8HR PRN pain 05/04/24 [History Confirmed 05/20/24] clopidogrel 75 mg tablet (Plavix) 75 mg PO DAILY 30 days #30 tabs 05/17/24 [Rx Confirmed 05/20/24] nitroglycerin 0.2 mg/hr transdermal 24 hour patch (Nitro-Dur) 1 patch transdermal DAILY 30 days #30 ea 05/17/24 [Rx Confirmed 05/20/24] Exam Physical Exam Vital Signs: Temp Pulse Resp BP Pulse Ox O2 Del Method 98.3 F 69 20 162/75 H 96 Room Air 05/20/24 16:37 05/20/24 18:35 05/20/24 18:35 05/20/24 18:35 05/20/24 16:42 05/20/24 16:42 Results - Hospitalist H&P Lab Results Labs: Laboratory Last Values Corrected WBC 4.3 X10E3/uL (3.8-11.6) 05/20/24 17:30 Uncorrected WBC Count 4.3 x10E3/uL (3.8-11.6) 05/20/24 17:30 RBC 3.82 X10E6/uL (3.60-5.00) 05/20/24 17:30 Hgb 10.0 g/dL (11.8-15.4) L 05/20/24 17:30 Hct 31.3 % (34.0-46.4) L 05/20/24 17:30 MCV 81.9 fl (80-100) 05/20/24 17:30 MCH 26.3 pg (24.7-34.3) 05/20/24 17:30 MCHC 32.1 g/dL (32.0-35.0) 05/20/24 17:30 RDW 19.6 % (11.9-15.3) H 05/20/24 17:30 Plt Count 220 x10E3/uL (150-450) 05/20/24 17:30 MPV 8.4 fl (6.3-10.7) 05/20/24 17:30 Neut % (Auto) 44.7 % (.) 05/20/24 17:30 Lymph % (Auto) 40.0 % (.) 05/20/24 17:30 Ogle % (Auto) 13.6 % (.) 05/20/24 17:30 Eos % (Auto) 0.6 % (.) 05/20/24 17:30 Baso % (Auto) 1.1 % (.) 05/20/24 17:30 Nucleat RBC Rel Count 0.1 /100 WBC (0-0.5) 05/20/24 17:30 Neut # (Auto) 1.9 x10E3/uL (1.8-7.7) 05/20/24 17:30 Lymph # (Auto) 1.7 x10E3/uL (1.00-4.8) 05/20/24 17:30 Ogle # (Auto) 0.6 x10E3/uL (0.0-0.8) 05/20/24 17:30 Eos # (Auto) 0.0 x10E3/uL (0.0-0.45) 05/20/24 17:30 Baso # (Auto) 0.0 x10E3/uL (0.0-0.2) 05/20/24 17:30 Monocyte Dist Width 19.14 % (0.00-20.00) 05/20/24 17:30 PT 12.4 Seconds (9.0-12.9) 05/20/24 17:30 INR 1.1 05/20/24 17:30 APTT 22.7 Seconds (25.1-36.5) L 05/20/24 17:30 PHA Creatinine Clear 34.50 05/20/24 17:30 Sodium 138 mmol/L (136-145) 05/20/24 17:30 Potassium 3.8 mmol/L (3.5-5.1) 05/20/24 17:30 Chloride 106 mmol/L (98-107) 05/20/24 17:30 Carbon Dioxide 24.1 mmol/L (21.0-31.0) 05/20/24 17:30 Anion Gap 11.7 mEq/L (6.0-15.0) 05/20/24 17:30 BUN 24 mg/dL (7-25) 05/20/24 17:30 Creatinine 1.47 mg/dL (0.60-1.20) H 05/20/24 17:30 Est GFR (CKD-EPI) 37.233 mL/Min 06/28/24 17:30 Glucose 108 mg/dL (70-100) H 05/20/24 17:30 Calcium 8.8 mg/dL (8.6-10.3) 05/20/24 17:30 Total Creatine Kinase 26 U/L (30-223) L 05/20/24 17:30 Troponin I High Sens 39.2 pg/mL (0.0-15.0) H 05/20/24 17:30 B-Natriuretic Peptide 461.0 pg/mL (5-100) H 05/20/24 17:30 Assessment & Plan Assessment/Plan (1) Chest pain at rest: Plan . IP vs OBS Justification Based on differential dx, clinical care plan, and risk of adverse events, if untreated, in my clinical judgement this patient requires an acute care setting as: OBSERVATION because of an expectation of an under 2 midnight stay. Estimated length of stay (# of days): 1 Documented By: Kali Helton MD 05/20/241843 Signed By: <Electronically signed by Kali Helton MD> 05/20/242000 [facility] Work Phone: Hisxpqw general Narrative - Reported* Type Description Date Medical History hypertension Medical History chronic kidney disease stage 3 Surgical History gall bladder Surgical History appendectomy Surgical History knee replacement, left Surgical History HEART CATH WITH STENT PLACEMENT X1 Hospitalization History see above Hospitalization History URINARY TRACT INFECTION 05/2020 Hospitalization History BLOOD PRESSURE ISSUES [employer] Other History of Present illness Narrative* The [...] medication regimen. She denies medication side effects. [facility] 250 DO Work Phone: History of Present [...] diet and weight loss were again advocated. -[facility] 600 DO Work Phone: Hospital Discharge instructionsAmbulatory Orders* Initiate Home Health Time Frame: 1 Day, Location: Determined By Patient Additional Instructions Home Health to manage care: - Full code - PT/OT eval and treat - Routine vital signs - Medication management and education - Left forearm skin tear- Clean with NS and pat dry. Hydrogel to the wound bed. Top with Adaptic and gauze. Secure with Conform and paper tape. Change daily and as needed. - -Continue to hold your Spironolactone and hydrochlorothiazide until you see your [facility]ologist[facility] Work Phone: Hospital Discharge instructionsAmbulatory Orders* Initiate Home Health Time Frame: 1 Day, Location: Determined By Patient Additional Instructions Home Health to manage care: - Full code - PT/OT eval and treat - Routine vital signs - Medication management and educationA[facility] Work Phone: InstructionsNot on filedocumented in this encounter [facility] SystemInstructionsNot on filedocumented in this encounter [facility] SystemInstructionsNot on filedocumented in this encounter [facility] SystemInstructionsNot on filedocumented in this encounter [facility] Summary Purpose Family History No Family [...] son Hypertension Unknown sister Heart disease Unknown Relationship Condition Age at Onset Recorded Date/T xiao mother Heart disease Unknown Chronic obstructive pulmonary disease Unk nown Myocardial infarction Unknown father History of heart surgery Unknown Heart disease Unknown sister Myocardial infarction Unknown father Hypertension Unknown Unknown Diabetes mellitus Unknown family member Unknown mother Hypertension Unknown son Hypertension Unknown sister Heart disease Unknown [...] Chronic kidney disease, stage 3b Hypertensive nephropathy Chief Complaint RENAL CKD 4 Chest Pain Chest Pain Reason for Visit Anemia of renal dise ase Chronic inflammatory demyelinating neuropathy Chronic kidney disease, stage 3b Hypertensive nephropathy Acute kidney injury superimposed on chronic kidney disease SHANKAR (acute kidney injury) Anemia CAD (coronary artery disease) Chest pain Chronic anticoagulation Chronic kidney disease, stage 3b HTN (hypertension) Ischemic cardiomyopathy Metabolic acidosis Chief Complaint RENAL CKD 4 Chest Pain Chest Pain Chest pain Reason for Visit Anemia of renal dise ase Chronic inflammatory demyelinating neuropathy Chronic kidney disease, stage 3b Hypertensive nephropathy Acute kidney injury superimposed on chronic kidney disease SHANKAR (acute kidney injury) Anemia CAD (coronary artery disease) Chest pain Chronic anticoagulation Chronic kidney disease, stage 3b HTN (hypertension) Ischemic cardiomyopathy Metabolic acidosis Chest pain Chest pain at rest Assessments No Assessments Information Available Chief Complaint * Seem to be doing good * KUSUM HUERTA is being seen for follow-up of a hospitalization for chest pain. * Patient was recently hospitalized at [facility]. The patient was seen in Cardiology consult with subsequent cardiovascular management by [facility] Hospitalization records have been reviewed. 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 Contreras * Cardiovascular testing: cardiac cath [...] section and content) DATE CREATED AUTHOR 05/19/2018 [facility] DATE CREATED AUTHOR AUTHOR'S ORGANIZ ATION 12/29/2022 [facility] DATE CREATED AUTHOR AUTHOR'S ORGANIZ ATION 08/28/2023 [employer] DATE CREATED AUTHOR AUTHOR'S ORGANIZ ATION 10/07/2023 [facility] DATE CREATED AUTHOR AUTHOR'S ORGANIZ ATION 11/24/2023 [facility] DATE CREATED AUTHOR AUTHOR'S ORGANIZ ATION 04/25/2024 [facility] DATE CREATED AUTHOR AUTHOR'S ORGANIZ ATION 05/19/2024 [facility] DATE CREATED AUTHOR AUTHOR'S ORGANIZ ATION 05/23/2024 [facility] REASON FOR VISIT (unrecogniz ed section and content) #13 NOT VACCINATED, NO POS C OVID EXP, COUGH, CONGESTION, FEVER Care Teams (unrecognized sec tion and content) 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 Relationship Specialty Start Date End Date Anna Pereira DO [address] [place] [address] PCP - General 06/30/18 [employer]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 Relationship Specialty Start Date End Date Shaikh Serna MD [address] [facility] [place] [address] PCP - General Internal Medicine 12/17/23 Team Status: Active Member Role Status Dates Shaikh Daphne MD Primary Care Provider Active Team Status: Inactive Member Role Status Dates Mary Espana MD Attending Provider Active St art: January 06, 2024 End: January 06, 2024 Shaikh Daphne MD Primary Care Provider Active Start: January 06, 2024 End: January 06, 2024 [employer]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 Relationship Specialty Start Date End Date De WittAnna [address] [place] [id number] PCP - General 06/30/18 [employer]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 Relationship Specialty Start Date End Date Gail Dawes LouisaDO [address] [place] [id number] PCP - General 06/30/18 [employer]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 Relationship Specialty Start Date End Date De WittAnna [address] [place] [id number] PCP - General 06/30/18 Team Status: Inactive Member Role Status Dates Shaikh Daphne MD Primary Care Provider Active Start: May 04, 2024 End: May 04, 2024 Elayne Stoddard MD Attending Provider Active Star t: May 04, 2024 End: May 04, 2024 Team Status: Inactive Member Role Status Dates Shaikh Daphne MD Primary Care Provider Active Start: May 16, 2024 End: May 18, 2024 Isabelle Dale MD Admit Provider Active Start : May 16, 2024 End: May 18, 2024 Shahzad Gomez MD Attending Provider Active Start: May 16, 2024 End: May 18, 2024 Elayne Stoddard MD Other Provider Active Start: Jo keane 2023 End: May 18, 2024 Team Status: Active Member Role Status Dates Shaikh Daphne MD Primary Care Provider Active Start: May 17, 2024 Isabelle Dale MD Admit Provider Active Start : May 17, 2024 Shahzad oGmez MD Other Provider Active Sta rt: May 17, 2024 Elayne Stoddard MD Attending Provider, Other Provider Active Start: May 17, 2024 Team Status: Active Member Role Status Dates Angel Luna DO Emergency Provider Active St art: May 20, 2024 Shaikh Daphne MD Primary Care Provider Active Start: May 20, 2024 Kali Helton MD Admit Provider, Attending Provider Active Start: May 20, 2024 Team Status: Inactive Member Role Status Dates Angel Luna DO Emergency Provider Active St art: May 20, 2024 End: May 22, 2024 Shaikh Daphne MD Primary Care Provider Active Start: May 20, 2024 End: May 22, 2024 Kali Helton MD Admit Provider, Atte nding Provider Active Start: May 20, 2024 End: May 22, 2024 Goals (unrecognized section and content) Goals [...] BE BASED ON THE PRIMARY CLINICAL RECORDS. [facility] [employer] provides no warranty or guarantee of the accuracy or completeness of information in this document.
--- NOTE | 2024-05-24 01:53 | ECG_ITS ---
The [facility] Test Date: 2024-05-24 Pat Name: BELLE JEONG Department: Room: - Gender: Female Gas Controller: : 1950 Requested By: SHAIKH OTILIA Order Number: [id number] Reading MD: KEERTHI WALTER Measurements Intervals [place] Rate: 64 P: -[id number] ID: [id number] QRS: -20 QRSD: 84 T: 26 QT: 418 QTc: 427 Interpretive Statements Sinus rhythm 3633 Inferior myocardial infarction, probably old 5233 Voltage criteria for LVH 9150 abnormal ECG Electronically Signed On 05-24-2024 6:48:32 EDT by KEERTHI WALTER
--- NOTE | 2024-05-24 01:53 | XR_ITS ---
The [address] [address] Patient Name: BELLE JEONG MRN: [id number] date: 1950 Sex: F Assigned Patient Location: ER Current Patient Location: ER Accession/Order Number: [id number] Exam Date: 05/24/2024 03:35 Report Date: 05/24/2024 04:37 At the request of: TOVA MARKER Procedure: XR chest 1V EXAM: XR chest 1V HISTORY: AMS COMPARISON: Chest radiograph dated 05/16/2024. TECHNIQUE: One view of the chest was obtained. FINDINGS: The cardiac silhouette is mildly enlarged. Aortic atherosclerotic disease is seen. A calcified granuloma is seen at the right lung base. There is mild suspected left basilar atelectasis. There is no significant pneumothorax or pleural effusion. No acute osseous abnormality is seen. XR/XR chest 1V IMPRESSION: 1. Mildly enlarged cardiac silhouette. Electronically authenticated by: Karine BRYANT Date: 05/24/2024 04:37
--- NOTE | 2024-05-24 01:53 | ED_ITS ---
HPI - Altered Mental Status General Chief Complaint: Altered Mental Status Stated Complaint: CONFUSION Time Seen by Provider: 05/24/24 01:45 History of Present Illness HPI narrative: This 74-year-old female with a history of coronary artery disease who was seen in this emergency department on 624 for chest pain and had an elevated troponin and was transferred to [facility] under the care of her procedural nurse is brought to the emergency department by EMS from home. According to the patient's family approximately an hour prior to arrival the patient became acutely confused and weak. She does have a history of chronic inflammatory demyelinating neuropathy, peripheral neuropathy and chronic lower extremity weakness. The patient has not been ambulatory for approximately 1 year. She lives at home with her family. Upon arrival she is generally weak but responds to verbal stimuli and answers questions appropriately. She does not know if she has been started on any new medications recently. She has multiple bruises on her arms and a history of cardiac disease for which she takes Eliquis. The patient is also on Lyrica and Suboxone. She states several days ago she had some nausea and vomiting. Upon arrival she was sitting in wet bed close that were foul-smelling like urine. Related Data Home Medications ?Medication ?Instructions ?Recorded ?Confirmed metoprolol tartrate 25 mg tablet 25 mg PO Q12H 08/15/23 05/24/24 amlodipine 5 mg tablet 5 mg PO DAILY 11/18/23 05/24/24 albuterol sulfate 90 mcg/actuation 2 puff inhalation Q4H PRN 12/12/23 05/24/24 aerosol inhaler shortness of breath or wheezing immune glob,gamma (IgG) 10 5 g IV Q21D 02/21/24 05/24/24 %-gly-IgA over 50 mcg/mL injection solution (Gammagard Liquid) tizanidine 4 mg tablet 4 mg PO Q8H PRN muscle spasticity 02/21/24 05/24/24 buprenorphine 8 mg-naloxone 2 mg 1 film sublingual .QD 02/22/24 05/24/24 sublingual film apixaban 2.5 mg tablet (Eliquis) 2.5 mg PO BID 05/16/24 05/24/24 furosemide 20 mg tablet 20 mg PO DAILY 05/16/24 05/24/24 nitroglycerin 0.4 mg sublingual 0.4 mg sublingual Q5M PRN chest 05/16/24 05/24/24 tablet pain pregabalin 75 mg capsule 75 mg PO BID 05/16/24 05/24/24 spironolactone 25 mg tablet 25 mg PO DAILY 05/16/24 05/24/24 valsartan 80 mg tablet 80 mg PO DAILY 05/16/24 05/24/24 Previous Rx's ?Medication ?Instructions ?Recorded ferrous sulfate 325 mg (65 mg 325 mg PO DAILY 30 days #30 tabs 08/18/23 iron) tablet (Iron (ferrous sulfate)) gabapentin 100 mg capsule 100 mg PO TID #90 caps 11/23/23 buprenorphine 8 mg-naloxone 2 mg 1 tab sublingual BID #60 tabs 01/28/24 sublingual tablet Allergies Allergy/AdvReac Type Severity Reaction Status Date / Time No Known Drug Allergies Allergy Verified 05/24/24 01:55 Review of Systems ROS Status of ROS 10 or more systems reviewed and unremark able except as noted in history and below [facility] Medical History (Updated 05/24/24 @ 06:32 by Melissa Parra MD) Dehydration ?E86.0 - Dehydration (ICD-10) Chest pain ?R07.9 - Chest pain, unspecified (ICD-10) Acute abdomen ?R10.0 - Acute abdomen (ICD-10) Adult failure to thrive ?R62.7 - Adult failure to thrive (ICD-10) Acute kidney injury superimposed on chronic kidney disease ?N17.9 - Acute kidney failure, unspecified (ICD-10) ?N18.9 - Chronic kidney disease, unspecified (ICD-10) Elevated d-dimer ?R79.89 - Other specified abnormal findings of blood chemistry (ICD-10) Chronic low back pain ?M54.50 - Low back pain, unspecified (ICD-10) ?G89.29 - Other chronic pain (ICD-10) Rhinovirus infection ?B34.8 - Other viral infections of unspecified site (ICD-10) Enterovirus infection ?B34.1 - Enterovirus infection, unspecified (ICD-10) Generalized weakness ?R53.1 - Weakness (ICD-10) Fall from chair ?W07.XXXA - Fall from chair, initial encounter (ICD-10) Lumbar degenerative disc disease ?M51.36 - Other intervertebral disc degeneration, lumbar region (ICD-10) Stage 3a chronic kidney disease (CKD) ?N18.31 - Chronic kidney disease, stage 3a (ICD-10) Opioid use disorder in remission ?F11.91 - Opioid use, unspecified, in remission (ICD-10) Acute on chronic diastolic heart failure ?I50.33 - Acute on chronic diastolic (congestive) heart failure (ICD-10) Hypoxia ?R09.02 - Hypoxemia (ICD-10) COPD (chronic obstructive pulmonary disease) ?J44.9 - Chronic obstructive pulmonary disease, unspecified (ICD-10) Iron deficiency anemia ?D50.9 - Iron deficiency anemia, unspecified (ICD-10) CAD (coronary atherosclerotic disease) ?I25.10 - Atherosclerotic heart disease of [place] coronary artery without angina pectoris (ICD-10) Hypertension ?I10 - Essential (primary) hypertension (ICD-10) Neuropathy ?G62.9 - Polyneuropathy, unspecified (ICD-10) Anemia requiring transfusions ?D64.9 - Anemia, unspecified (ICD-10) Acute on chronic congestive heart failure ?I50.9 - Heart failure, unspecified (ICD-10) CKD (chronic kidney disease) stage 3, GFR 30-59 ml/min ?N18.30 - Chronic kidney disease, stage 3 unspecified (ICD-10) Chronic respiratory failure with hypoxia ?J96.11 - Chronic respiratory failure with hypoxia (ICD-10) Melanoma ?C43.9 - Malignant melanoma of skin, unspecified (ICD-10) History of illicit drug use ?F19.91 - Other psychoactive substance use, unspecified, in remission (ICD- 10) Kidney disease ?N28.9 - Disorder of kidney and ureter, unspecified (ICD-10) CHF (congestive heart failure) ?I50.9 - Heart failure, unspecified (ICD-10) Heart attack ?I21.9 - Acute myocardial infarction, unspecified (ICD-10) Anemia ?D64.9 - Anemia, unspecified (ICD-10) Anemia ?D64.9 - Anemia, unspecified (ICD-10) CHF (congestive heart failure) ?I50.9 - Heart failure, unspecified (ICD-10) Surgical History H/O: hysterectomy ?Z90.710 - Acquired absence of both cervix and uterus (ICD-10) History of cholecystectomy ?Z90.49 - Acquired absence of other specified parts of digestive tract (ICD- 10) History of total left knee replacement ?Z96.652 - Presence of left artificial knee joint (ICD-10) Hx of appendectomy ?Z90.49 - Acquired absence of other specified parts of digestive tract (ICD- 10) History of heart artery stent ?Z95.5 - Presence of coronary angioplasty implant and graft (ICD-10) Family History Father Family history of CHF (congestive heart failure) Family history of diabetes mellitus Family history of hypertension Sister Family history of myocardial infarction Family history of hypertension Mother Family history of COPD (chronic obstructive pulmonary disease) Family history of hypertension Daughter Family history of diabetes mellitus Social History Within the past year, how often did you have a drink containing alcohol: never Within the past year, how many standard drinks containing alcohol did you have on a typical day: 1 or 2 Within the past year, how often did you have six or more drinks on one occasion: never Total score: 0 Score interpretation: A score less than 3 is consistent with normal alcohol consumption. Smoking status: Former smoker Non-prescribed substance use: former substance user, amphetamines/methamphetamines and opiods/painkillers Non-prescribed substance use details: states has been clean for 6 months Previous occupational history: Retired Known occupational exposures/hazards: No Highest level of school completed/degree received: 11th grade Are you now , , , , never or living with a partner: In a typical week, how many times do you talk on the telephone with family, friends, or neighbors: 3 or more times per week How often do you get together with friends or relatives: 3 or more times per week How often do you attend hinduism or zoroastrianism services: never Do you belong to any clubs or organizations such as hinduism groups unions, fraternal or athletic groups, or school groups: no Total score: 1 Score interpretation: A score of less than or equal to 1 indicates the most socially isolated. Little interest or pleasure in doing things: not at all Feeling down, depressed, or hopeless: not at all Feel stressed/tense/nervous/anxious/difficulty sleeping: not at all Gender Identity: female Exam Narrative Exam Narrative: Vital signs and Nursing Notes reviewed: Patient is afebrile with a normal pulse, blood pressure is low at 80/48, she has not hypoxic with pulse ox of 95% on room air General: Debilitated elderly female, she requires assistance to reposition her head and neck, no respiratory distress, GCS 15 HEENT: Normocephalic atraumatic, mucous membranes are pink and dry, no oral lesions noted Neck: Supple, no meningeal signs, no anterior or posterior cervical lymphadenopathy Chest: Lungs are clear to auscultation with good air entry, there is no wheezing rhonchi or rales appreciated no accessory muscle use, patient is speaking in complete sentences-no chest wall tenderness to palpation CVS: Regular rate and rhythm S1-S2, no murmurs rubs or gallops, pulses are brisk and equal bilaterally ABD: Soft, nondistended, nontender, no rebound guarding or rigidity, bowel sounds are normal, no pulsatile masses appreciated Extremities: Minimal movement of the lower extremities bilaterally with mild extension of both feet, there is no calf swelling or tenderness, sandwich and drink cart operator strength is intact in her upper extremities. Musc: no skin breakdown or decubitus ulcers noted on the sacrum or buttocks Skin: Multiple areas of ecchymosis are noted on the patient's upper extremities likely related to blood draws and IV sticks Neuro: Patient is awake, alert, oriented to person place but is generally weak and debilitated, sandwich and drink cart operator strength is intact, there is no facial droop, speech is clear Constitutional Vital Signs, click to edit/add: Last Vital Signs Temp 97.1 F L 05/24/24 01:40 Pulse 62 05/24/24 05:41 Resp 20 05/24/24 05:41 BP 89/43 L 05/24/24 05:41 Pulse Ox 97 05/24/24 05:41 O2 Del Method Room Air 05/24/24 05:41 Course Vital Signs Vital signs: Vital Signs Temperature 97.1 F L 05/24/24 01:40 Pulse Rate 63 05/24/24 01:40 Respiratory Rate 18 05/24/24 01:40 Blood Pressure 80/48 L 05/24/24 01:40 Pulse Oximetry 95 05/24/24 01:40 Oxygen Delivery Method Room Air 05/24/24 01:40 Temperature 97.1 F L 05/24/24 01:40 Pulse Rate 62 05/24/24 05:41 Respiratory Rate 20 05/24/24 05:41 Blood Pressure 89/43 L 05/24/24 05:41 Pulse Oximetry 97 05/24/24 05:41 Oxygen Delivery Method Room Air 05/24/24 05:41 MDM - Altered Mental Status MDM Narrative Medical decision making narrative: This 74-year-old female with a history of demyelinating polyneuropathy with leg weakness and coronary artery disease who recently was transferred to [facility] after she had an elevated troponin and complained of chest pain is brought to the emergency department by EMS from home for evaluation of altered mental status. Upon arrival the patient is not confused but appears very weak. She is uncertain if she was placed on any new medications while she was hospitalized at [facility]. She is able to speak her name and knows where she is. She is generally weak and has diffuse pain. She is on Subonxone and Lyrica. She denies any complaint of chest pain or abdominal pain. She has not had a fever. She does admit that she was recently in rehab for her weakness and felt that she was doing better but then was sent home where she has declined. An EKG done upon arrival was a sinus rhythm at 64 bpm. Her blood pressure was noted to be low at 80/48. An IV was placed and she was given IV fluids and routine labs, chest x- ray, CT scan of her head and urinalysis was ordered. Blood cultures and lactic acid were also ordered. She has a low white count at 4.1, Hemoglobin is stable at 9.2. Electrolytes are normal and BUN/Cr are elevated at 48/2.8. She has a history of renal insufficiency in the past and these numbers are slightly higher than her baseline. Her troponin is elevated at 97.6 and BNP is elevated at 3728. LFTs and ammonia are normal. Her blood gas is unremarkable and urinalysis does not show any sign of infection. CT scan of the brain does not show any acute findings that would contribute to her weakness today. I spoke with the patient's daughter, Lacey. Her phone number is area code [phone]. She states that the patient was transferred to [facility] on which was a Thursday and released on Thursday. She was then taken back to [facility] last Thursday and released on Thursday. She has only been home 1 day prior to her coming to this emergency department today. She did not have a cardiac cath while she was at [facility]. The daughter states she was taken off of 2 medications and 1 was lisinopril but she does not know what the other medication was when she believes she was started on a blood thinner medication. We will request the patient's discharge summary from [facility]. The case was discussed with the patient's physician, Dr. Serna who is familiar with her and thinks she may be dehydrated which is likely as she has recently been admitted to [facility] twice and may be received diuretics. She is accepted for admission to med/surg for further evaluation and treatment. Her blood pressure was noted to be trending down and she was given a 250ml IV fluid bolus. Medical Records Attestation: I reviewed the patient's medical records. Medical records narrative: [place] [address] CT Scan Report Signed Patient: BELLE JEONG MR#: [id number] : 1950 Acct:[id number] Age/Sex: 74 / F ADM Date: 05/24/24 Loc: ER Attending Dr: Ordering Physician: Melissa Parra Date of Service: 05/24/24 Procedure(s): CT head/brain wo con Accession Number(s): [id number] cc: Shaikh Alea Serna~ The [place] [id number] Patient Name: BELLE JEONG MRN: [id number] date: 1950 Sex: F Assigned Patient Location: ER Current Patient Location: ER Accession/Order Number: [id number] Exam Date: 05/24/2024 03:35 Report Date: 05/24/2024 04:24 At the request of: MELISSA PARRA Procedure: CT head/brain wo con INDICATION: 74 years old; Female. Change in mental status. TECHNIQUE: CT Head (ax/cor/sag reformats). Ionizing radiation dose reduced via iterative reconstruction/FBP blend and body size kV/mA adjustment. . Comparison: Head CT dated 12/12/2023. FINDINGS: POSTOPERATIVE CHANGES: None. BRAIN PARENCHYMA: No intraparenchymal or extra-axial hemorrhage. No mass effect. No midline shift or herniation. Subtle patchy low-density in the white matter without mass effect. VENTRICLES/EXTRA-AXIAL SPACES: Normal for patient's age. SINUSES/MASTOIDS: Sinuses are clear although the maxillary sinuses are not completely included. Nasal septal deviation to the right with spur formation. Sharron bullosa bilaterally worse on the left. There is redemonstration and no change in the appearance of groundglass bony thickening of the temporal bone on the right associated with narrowing of the right internal auditory canal and encroachment upon the vestibule and semicircular canals. MSK: No displaced or depressed calvarial fracture. Generalized bony demineralization. Scattered not expansile lucencies within the calvarium which contain trabeculation. These are stable as compared to the prior examination. OTHER: No hyperdense intraluminal thrombus. Vascular calcifications are present. CT/CT head/brain wo con IMPRESSION: 1. No acute intracranial abnormality. No hemorrhage or mass effect. 2. Nonspecific white matter changes. 3. Multiple nonexpansile calvarial lucencies which contain trabeculation. The appearance is unchanged as compared to the prior study. As previously noted, hemangiomas, patchy demineralization, and myeloma not excluded. 4. Abnormal appearance of the right temporal bone. There is groundglass appearance with bony overgrowth. This narrows the internal auditory canal as well as encroaches upon and narrows the vestibule and semicircular canals. This is unchanged as compared to the prior study. This has the appearance of fibrous dysplasia. Electronically authenticated by: JARROD CARR Date: 05/24/2024 04:[address] [address] XRay Report Signed Patient: BELLE JEONG MR#: [id number] : 1950 Acct:[id number] Age/Sex: 74 / F ADM Date: 05/24/24 Loc: ER Attending Dr: Ordering Physician: Melissa Parra Date of Service: 05/24/24 Procedure(s): XR chest 1V Accession Number(s): [id number] cc: Shaikh Alea Serna; Melissa Parra~ The [address] [id number] Patient Name: BELLE JEONG MRN: [id number] date: 1950 Sex: F Assigned Patient Location: ER Current Patient Location: ER Accession/Order Number: [id number] Exam Date: 05/24/2024 03:35 Report Date: 05/24/2024 04:37 At the request of: MELISSA PARRA Procedure: XR chest 1V EXAM: XR chest 1V HISTORY: AMS COMPARISON: Chest radiograph dated 05/16/2024. TECHNIQUE: One view of the chest was obtained. FINDINGS: The cardiac silhouette is mildly enlarged. Aortic atherosclerotic disease is seen. A calcified granuloma is seen at the right lung base. There is mild suspected left basilar atelectasis. There is no significant pneumothorax or pleural effusion. No acute osseous abnormality is seen. XR/XR chest 1V IMPRESSION: 1. Mildly enlarged cardiac silhouette. Electronically authenticated by: Karine BRYANT Date: 05/24/2024 04:37 Lab Data Attestation: I reviewed the patient's lab results. Labs: Lab Results 05/24/24 05/24/24 05/24/24 Range/Units 02:53 04:50 04:52 WBC 4.1 (4.0-11.0) 10^3/uL RBC 3.51 L (4.20-5.40) 10^6/uL Hgb 9.2 L (12.0-16.0) g/dL Hct 32.5 L (36.0-48.0) % MCV 92.6 (81.0-99.0) fL MCH 26.2 L (26.7-34.0) pg MCHC 28.3 L (29.9-35.2) g/dL RDW 19.0 H (11.0-15.0) % Plt Count 204 (150-450) 10^3/uL MPV 11.3 (9.5-13.5) fL Neut % (Auto) 43.2 (43.0-75.0) % Lymph % (Auto) 35.7 (20.5-60.0) % [place] % (Auto) 15.3 H (1.7-12.0) % Eos % (Auto) 3.6 (0.9-7.0) % Baso % (Auto) 1.5 (0.2-2.0) % Neut # (Auto) 1.8 (1.4-6.5) 10^3/uL Lymph # (Auto) 1.5 (1.2-3.8) 10^3/uL [place] # (Auto) 0.6 (0.3-0.8) 10^3/uL Eos # (Auto) 0.2 (0.0-0.7) 10^3/uL Baso # (Auto) 0.1 (0.0-0.1) 10^3/uL Abs Immat Gran (auto) 0.03 (0.00-0.03) 10^3/uL Imm/Tot Granulo (auto) 0.7 H (0.0-0.5) % Puncture Site Rb ABG pH 7.308 L (7.350-7.450) ABG pCO2 45.9 H (35.0-45.0) mmHg ABG pO2 58.3 L* (80.0-100.0) mmHg ABG HCO3 23.0 (22.0-26.0) mmol/L ABG O2 Saturation 90.0 % ABG Base Excess -3.3 L (-2.0-2.0) mmol/L Rick Test Positive (POSITIVE) Sodium 137 (136-145) mmol/L Potassium 3.9 (3.5-5.1) mmol/L Chloride 103 (98-107) mmol/L Carbon Dioxide 26.1 (21.0-32.0) mmol/L Anion Gap 11.8 BUN 48.0 H (7.0-18.0) mg/dL Creatinine 2.80 H (0.55-1.02) mg/dL Est GFR ( Amer) 20 L (>=60) Est GFR (Non-Af Amer) 17 L (>=60) BUN/Creatinine Ratio 17.1 Glucose 130 H (74-106) mg/dL Lactate 1.9 (0.4-2.0) mmol/L Calcium 8.4 L (8.5-10.1) mg/dL Total Bilirubin 0.4 (0.2-1.0) mg/dL AST 18 (15-37) U/L ALT 17 (14-59) U/L Alkaline Phosphatase 79 (46-116) U/L Ammonia 25 (11-32) umol/L Troponin I High Sens 97.6 H* 92.5 H* (4.0-51.3) pg/mL NT-Pro-B Natriuret Pep 3728.0 H* (<=900.0) pg/mL Total Protein 6.9 (6.4-8.2) g/dL Albumin 2.8 L (3.4-5.0) g/dL Globulin 4.1 g/dL Albumin/Globulin Ratio 0.7 Urine Color (YELLOW) Urine Clarity (CLEAR) Urine pH (5.0-9.0) Ur Specific [place] (1.005-1.025) Urine Protein (NEG/TRACE) mg/dL Urine Glucose (UA) (NEGATIVE) mg/dL Urine Ketones (NEGATIVE) mg/dL Urine Occult Blood (NEGATIVE) Urine Nitrite (NEGATIVE) Urine Bilirubin (NEGATIVE) Urine Urobilinogen (0.2-1.0) EU/dL Ur Leukocyte Esterase (NEGATIVE) Urine RBC (0-2) #/HPF Urine WBC (NONE SEEN) #/HPF Ur Squamous Epith Cells (NONE/RARE) #/LPF Urine Crystals (None Seen) #/HPF Amorphous Sediment Urine Bacteria (NONE SEEN) #/HPF Urine Casts (NONE SEEN) #/LPF Hyaline Casts Fine Granular Casts Urine Mucus (NONE SEEN) Ur Culture Indicated? 05/24/24 Range/Units 05:15 WBC (4.0-11.0) 10^3/uL RBC (4.20-5.40) 10^6/uL Hgb (12.0-16.0) g/dL Hct (36.0-48.0) % MCV (81.0-99.0) fL MCH (26.7-34.0) pg MCHC (29.9-35.2) g/dL RDW (11.0-15.0) % Plt Count (150-450) 10^3/uL MPV (9.5-13.5) fL Neut % (Auto) (43.0-75.0) % Lymph % (Auto) (20.5-60.0) % Callahan % (Auto) (1.7-12.0) % Eos % (Auto) (0.9-7.0) % Baso % (Auto) (0.2-2.0) % Neut # (Auto) (1.4-6.5) 10^3/uL Lymph # (Auto) (1.2-3.8) 10^3/uL [place]ahan # (Auto) (0.3-0.8) 10^3/uL Eos # (Auto) (0.0-0.7) 10^3/uL Baso # (Auto) (0.0-0.1) 10^3/uL Abs Immat Gran (auto) (0.00-0.03) 10^3/uL Imm/Tot Granulo (auto) (0.0-0.5) % Puncture Site ABG pH (7.350-7.450) ABG pCO2 (35.0-45.0) mmHg ABG pO2 (80.0-100.0) mmHg ABG HCO3 (22.0-26.0) mmol/L ABG O2 Saturation % ABG Base Excess (-2.0-2.0) mmol/L Rick Test (POSITIVE) Sodium (136-145) mmol/L Potassium (3.5-5.1) mmol/L Chloride (98-107) mmol/L Carbon Dioxide (21.0-32.0) mmol/L Anion Gap BUN (7.0-18.0) mg/dL Creatinine (0.55-1.02) mg/dL Est GFR ( Amer) (>=60) Est GFR (Non-Af Amer) (>=60) BUN/Creatinine Ratio Glucose (74-106) mg/dL Lactate (0.4-2.0) mmol/L Calcium (8.5-10.1) mg/dL Total Bilirubin (0.2-1.0) mg/dL AST (15-37) U/L ALT (14-59) U/L Alkaline Phosphatase (46-116) U/L Ammonia (11-32) umol/L Troponin I High Sens (4.0-51.3) pg/mL NT-Pro-B Natriuret Pep (<=900.0) pg/mL Total Protein (6.4-8.2) g/dL Albumin (3.4-5.0) g/dL Globulin g/dL Albumin/Globulin Ratio Urine Color Yellow (YELLOW) Urine Clarity Clear (CLEAR) Urine pH 6.0 (5.0-9.0) Ur Specific [place] 1.025 (1.005-1.025) Urine Protein 30 A (NEG/TRACE) mg/dL Urine Glucose (UA) Negative (NEGATIVE) mg/dL Urine Ketones Negative (NEGATIVE) mg/dL Urine Occult Blood Negative (NEGATIVE) Urine Nitrite Negative (NEGATIVE) Urine Bilirubin Negative (NEGATIVE) Urine Urobilinogen 0.2 (0.2-1.0) EU/dL Ur Leukocyte Esterase Negative (NEGATIVE) Urine RBC None seen (0-2) #/HPF Urine WBC None seen (NONE SEEN) #/HPF Ur Squamous Epith Cells None seen (NONE/RARE) #/LPF Urine Crystals None seen (None Seen) #/HPF Amorphous Sediment Many Urine Bacteria None seen (NONE SEEN) #/HPF Urine Casts Seen A (NONE SEEN) #/LPF Hyaline Casts Few Fine Granular Casts Few Urine Mucus None seen (NONE SEEN) Ur Culture Indicated? No ECG Data Attestation: I personally reviewed and interpreted this ECG as follows: (Interpretation limited by patient movement, sinus rhythm at 64 bpm, left axis deviation, Q waves noted in leads II, III, aVF) Prior ECG tracings: available for review (EKG for comparison from 05/16/2024, this is a similar EKG however the EKG on 624 shows a Q wave in lead V3, today the patient has a normal R wave progression without a Q wave in lead V3) Discharge Plan Discharge Chief Complaint: Altered Mental Status Clinical Impression: Generalized weakness, Elevated troponin, Acute kidney injury Patient Disposition: Admitted as Observation Time of Disposition Decision: 06:31 Condition: Fair Prescriptions / Home Meds: No Action metoprolol tartrate 25 mg tablet 25 mg PO Q12H ferrous sulfate [Iron (ferrous sulfate)] 325 mg (65 mg iron) tablet 325 mg PO DAILY 30 Days Qty: 30 0RF amlodipine 5 mg tablet 5 mg PO DAILY gabapentin 100 mg Capsule 100 mg PO TID Qty: 90 0RF buprenorphine-naloxone 8-2 mg Tablet, Sublingual 1 tab sublingual BID Qty: 60 0RF Gammagard Liquid 10 % solution 5 g IV Q21D tizanidine 4 mg tablet 4 mg PO Q8H PRN (Reason: muscle spasticity) buprenorphine-naloxone 8-2 mg film 1 film sublingual .QD Rx Instructions: 1 &1/2 FILM; Eliquis 2.5 mg tablet 2.5 mg PO BID furosemide 20 mg tablet 20 mg PO DAILY nitroglycerin 0.4 mg tablet, sublingual 0.4 mg sublingual Q5M PRN (Reason: chest pain) pregabalin 75 mg capsule 75 mg PO BID spironolactone 25 mg tablet 25 mg PO DAILY valsartan 80 mg tablet 80 mg PO DAILY albuterol sulfate 90 mcg/actuation HFA aerosol inhaler 2 puff INHALATION Q4H PRN (Reason: shortness of breath or wheezing) Print Language: [place] Referrals: Shaikh Serna MD [Primary Care Provider] - 1 week
[2024-05-24] MEDS: 0.9 % SODIUM CHLORIDE 1,000 ML 500 ML IV (02:56)
[2024-05-24 03:03] LABS: Basophils Absolute Auto 0.1 10^3/uL (0.0-0.1); Basophils Percent Auto 1.5 % (0.2-2.0); Eosinophils Absolute Auto 0.2 10^3/uL (0.0-0.7); Eosinophils Percent Auto 3.6 % (0.9-7.0); Hematocrit 32.5 % (36.0-48.0); Hemoglobin 9.2 g/dL (12.0-16.0); Immature Granulocytes Abs Auto 0.03 10^3/uL (0.00-0.03); Immature Granulocytes Pct Auto 0.7 % (0.0-0.5); Lymphocytes Absolute Auto 1.5 10^3/uL (1.2-3.8); Lymphocytes Percent Auto 35.7 % (20.5-60.0); Mean Corpuscular HGB Conc 28.3 g/dL (29.9-35.2); Mean Corpuscular Hemoglobin 26.2 pg (26.7-34.0); Mean Corpuscular Volume 92.6 fL (81.0-99.0); Mean Platelet Volume 11.3 fL (9.5-13.5); Monocytes Absolute Auto 0.6 10^3/uL (0.3-0.8); Monocytes Percent Auto 15.3 % (1.7-12.0); Neutrophils Absolute Auto 1.8 10^3/uL (1.4-6.5); Neutrophils Percent Auto 43.2 % (43.0-75.0); Platelet Count 204 10^3/uL (150-450); Red Blood Count 3.51 10^6/uL (4.20-5.40); White Blood Count 4.1 10^3/uL (4.0-11.0)
[2024-05-24 03:21] LABS: Ammonia 25 umol/L (11-32)
[2024-05-24 03:23] LABS: Lactate/Lactic Acid 1.9 mmol/L (0.4-2.0)
[2024-05-24 03:25] LABS: Alanine Aminotransferase 17 U/L (14-59); Albumin Globulin Ratio 0.7; Albumin Level 2.8 g/dL (3.4-5.0); Alkaline Phosphatase 79 U/L (46-116); Anion Gap 11.8; Aspartate Amino Transferase 18 U/L (15-37); BUN Creatinine Ratio 17.1; Bilirubin Total 0.4 mg/dL (0.2-1.0); Calcium 8.4 mg/dL (8.5-10.1); Carbon Dioxide 26.1 mmol/L (21.0-32.0); Chloride 103 mmol/L (98-107); Estimated GFR (African America 20 (>=60); Estimated GFR (Non-African Ame 17 (>=60); Globulin 4.1 g/dL; Glucose 130 mg/dL (74-106); Potassium 3.9 mmol/L (3.5-5.1); Sodium 137 mmol/L (136-145); Total Protein 6.9 g/dL (6.4-8.2)
[2024-05-24 03:28] LABS: Troponin I High Sensitivity 97.6 pg/mL (4.0-51.3)
[2024-05-24 04:58] LABS: ABG PCO2 45.9 mmHg (35.0-45.0); pH ABG 7.308 (7.350-7.450)
[2024-05-24 04:59] LABS: Allen Test POSITIVE (POSITIVE); Base Excess ABG -3.3 mmol/L (-2.0-2.0); O2 Mode ROOM AIR; Puncture Site RB
[2024-05-24] MEDS: ACETAMINOPHEN 325 MG TABLET 650 MG PO (05:00)
[2024-05-24 05:01] LABS: PO2 ABG 58.3 mmHg (80.0-100.0)
[2024-05-24 05:25] LABS: Bilirubin Urine NEGATIVE (NEGATIVE); Blood Urine NEGATIVE (NEGATIVE); Clarity Urine CLEAR (CLEAR); Color Urine YELLOW (YELLOW); Glucose Urine UA NEGATIVE (NEGATIVE); Ketones Urine NEGATIVE (NEGATIVE); Leukocyte Esterase Urine NEGATIVE (NEGATIVE); Nitrite Urine NEGATIVE (NEGATIVE); Protein Urine 30 mg/dL (NEG/TRACE); Specific Gravity Urine 1.025 (1.005-1.025); Urobilinogen Urine 0.2 EU/dL (0.2-1.0)
[2024-05-24 05:32] LABS: Troponin I High Sensitivity 92.5 pg/mL (4.0-51.3)
[2024-05-24 05:36] LABS: Amorphous Sediment Urine MANY; Bacteria Urine NONE SEEN #/HPF (NONE SEEN); Cast Seen? SEEN #/LPF (NONE SEEN); Crystals Seen? None Seen #/HPF (None Seen); Mucus Urine NONE SEEN (NONE SEEN); RBC Urine NONE SEEN #/HPF (0-2); Squamous Epithelial Cell Urine NONE SEEN #/LPF (NONE/RARE); WBC Urine NONE SEEN #/HPF (NONE SEEN)
[2024-05-24 05:37] LABS: Fine Granular Casts Urine FEW; Hyaline Casts Urine FEW; Urine Culture Indicated NO
[2024-05-24] MEDS: 0.9 % SODIUM CHLORIDE 1,000 ML 100 ML IV (06:38)
--- OUTSIDE RECORDS SUMMARY | 2024-05-24 07:43 | XMS_ITS | CCD ---
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 Name Role Phone DEVANTE IBARRA Unavailable Unavailable DEVANTE IBARRA Unavailable Unavailable Anna Pereira Primary Care Provider [phone] NON, STAFF, Attending Provider Unavailable Unavailable Unavailable [...] able Anna Pereira DO Primary Care Provider [phone] Shaikh Serna MD Primary Care Provider MD Mary Espana Attending Provider MD Laury Serna Primary Care Provider [phone] SHAIKH SERNA Attending Unavailable TRENT RAMIREZ Attending Unavailable SHAIKH SERNA Attending Unavailable SHAIKH SERNA Attending Unavailable ANTONY GRANT Attending Unavailable SHAIKH SERNA Attending Unavailable SHAIKH SERNA Attending Unavailable TRENT RAMIREZ Attending Unavailable MD Laury Serna Primary Care Provider MD Isabelle Dale Admit Provider [phone] MD Shahzad Gomez Attending Provider MD Elayne Stoddard Other Provider DEVANTE IBARRA Attending Unavailable [facility] Unavailable Jeremy Angel Kim Emergency Provider [phone] MD Kali Helton Admit Provider [phone] MD Kali Helton Attending Provider [phone] Mary Espana Attending Unavailable Mary Espana Admitting Unavailable [facility] Care Unavailable lEayne Stoddard Consulting Unavailable Isabelle Dale Admitting Unavailable Shahzad Gomez Attending Unavailable [facility] Unavailable Kali Helton Attending Unavailable Kali Helton Admitting Unavailable [facility] Unavailable Unavailable Unavailable Unavailable Allergies Allergy [...] take 1 tablet by mouth once daily Xenshabyaz-Jixitdusv-Xmxlctyzm Active 1 TAB PO Daily May 22, [...] capsule 12/16/2023 12/10/2024 Active 168 hr cloNIDine 0.09501 mg/hr transdermal system (10 sources) Central alpha-2 [...] Active Start: 10-12-2021 take 2 tablets by [facility] every twenty-four hours predniSONE 20 MG [...] (meal/snack) Start: 06-05-2020 take 1 capsule by [facility] once daily at mealtime Vitamin B [...] Drug Class(es) Dates Sig (Normalized) Sig (Original) [id number] 200 actuat albuterol 0.09 mg/actuat metered dose [...] On 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: 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 Start: 09-09-2020 End: 04-18-2022 take 25 mg [...] medications] Episodic Other aftercare (1 source) 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; Translations: [OTH ADMINISTRATIVE RESOURCES ASSOCIATE CURRENT DRUG THERAPY] Onset: 12-29-2022 Episodic Other aftercare (3 sources) Long-term current use of anticoagulant; Translations: [continuous churn buttermaker (current) use of anticoagulants] 05-17-2024 Episodic Other aftercare (4 sources) continuous churn buttermaker (current) use of anticoagulants; Translations: [Long-term (current) [...] Unclassified (1 source) 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 Vit. B12/Folate Profileon Folate 5.4 ng/mL Low >5.9 [facility] Comment on above: Order Comment: Comme nt addon Result Comment: Maryann te reference range: >5.9 ng/ml The WHO technical consultation on folate and vitamin b12 deficiencies has determined that folate concentrations less than 4 ng/ml are considered deficient. PERFORMED BY: [facility] [address] [place] [address] PATHOLOGIST CREAM GATHERER CUCA VOGT M.D. Performed By: #### B MP, LIPID, MG #### [facility] [address] [place] [address] Vitamin B12 ser/plasOrdered By: Kali Helton on 05-22-2024 Cobalamin (Vitamin B12) [Mass/Vol] 219 pg/mL Normal 180-914 [facility] Comment on above: Order Comment: Commlouisa nt addon Performed By: #### B MP, LIPID, MG #### [address] Troponin I High Sensitivityo n 05-21-2024 Troponin I High Sensitivity 34.0 pg/mL High 0.0-15.0 [facility] Comment on above: Result Comment: PERF ORMED BY: [place] [address] PATHOLOGIST CREAM GATHERER CUCA VOGT M.D. Performed By: #### H S TROP #### [address] Troponin I.cardiac [Mass/vol ume] in Serum or Plasma by Detection limit <= 0.01 ng/Ordered By: Kali Helton on 05-21-2024 Troponin I.cardiac DL <= 0.01 ng/mL [Mass/Vol] 34.0 pg/mL High 0.0-15.0 [facility] Activated partial thrombopla stin time (aPTT) in platelet poor plasma by coagulation aOrdered By: Angel Luna on 05-20-2024 aPTT Coag (PPP) [Time] 22.7 s Low 25.1-36.5 [facility] Comment on above: A hematocrit value g reater than 55% may lead to inaccurate results in coagulation testing. Patients having hematocrit values >55% require a special collection tube for coagulation studies. Please contact the laboratory at [phone] for redraw instructions. Alanine aminotransferase [En zymatic activity/volume] in Serum or PlasmaOrdered By: Angel Luna on 05-20-2024 ALT [Catalytic activity/Vol] 22 U/L Normal 7-52 [facility] Comment on above: Performed By: #### B MP, LIPID, MG #### [address] Albumin [Mass/volume] in Ser um or Plasma by Bromocresol green (BCG) dye binding methoOrdered By: Angel Luna on 05-20-2024 Albumin BCG dye [Mass/Vol] 3.7 g/dL 3.5-5.7 [facility] Alkaline phosphatase [Enzyma tic activity/volume] in Serum or PlasmaOrdered By: Angel Luna on 05-20-2024 ALP [Catalytic activity/Vol] 74 U/L Normal 34-104 [facility] Comment on above: Performed By: #### B MP, LIPID, MG #### [address] Aspartate aminotransferase [ Enzymatic activity/volume] in Serum or PlasmaOrdered By: Angel Luna on 05-20-2024 AST [Catalytic activity/Vol] 37 U/L Normal 13-39 [facility] Comment on above: Performed By: #### B MP, LIPID, MG #### [address] Automated basophil %Ordered By: Angel Luna on 05-20-2024 Basophils/100 WBC (Bld) 1.1 % Normal . [facility] Comment on above: Performed By: #### C K, BMP, BNP, HS TROP, CBC, HEPATIC, PTT, PT #### [address] Automated basophil countOrde red By: Angel Luna on 05-20-2024 Basophils (Bld) [#/Vol] 0.0 10*3/uL Normal 0.0-0.2 [facility] Comment on above: Result Comment: PERF ORMED BY: [place] [address] PATHOLOGIST CREAM GATHERER CUCA VOGT M.D. Performed By: #### C K, BMP, BNP, HS TROP, CBC, HEPATIC, PTT, PT #### [facility] [address] Automated blood monocyte cou ntOrdered By: Angel Luna on 05-20-2024 Monocytes (Bld) [#/Vol] 0.6 10*3/uL Normal 0.0-0.8 [facility] Comment on above: Performed By: #### C K, BMP, BNP, HS TROP, CBC, HEPATIC, PTT, PT #### [address] Automated eosinophil %Ordere d By: Angel Luna on 05-20-2024 Eosinophils/100 WBC (Bld) 0.6 % Normal . [facility] Comment on above: Performed By: #### C K, BMP, BNP, HS TROP, CBC, HEPATIC, PTT, PT #### [address] Automated eosinophil countOr dered By: Angel Luna on 05-20-2024 Eosinophils (Bld) [#/Vol] 0.0 10*3/uL Normal 0.0-0.45 [facility] Comment on above: Performed By: #### C K, BMP, BNP, HS TROP, CBC, HEPATIC, PTT, PT #### [address] Automated monocyte %Ordered By: Angel Luna on 05-20-2024 Monocytes/100 WBC (Bld) 13.6 % Normal . [facility] Comment on above: Performed By: #### C K, BMP, BNP, HS TROP, CBC, HEPATIC, PTT, PT #### [address] Automated neutrophil %Ordere d By: Angel Luna on 05-20-2024 Neutrophils/100 WBC (Bld) 44.7 % Normal . [facility] Comment on above: Performed By: #### C K, BMP, BNP, HS TROP, CBC, HEPATIC, PTT, PT #### [address] BNP ser/plasOrdered By: Izabela Luna on 05-20-2024 Natriuretic peptide B (Bld) [Mass/Vol] 461.0 pg/mL High 5-100 [facility] Comment on above: Result Comment: PERF ORMED BY: [place] [address] PATHOLOGIST CREAM GATHERER CUCA VOGT M.D. Performed By: #### B MP, LIPID, MG #### [facility] [address] [place] [address] Basic Metabolic Panelon 04-24 Creatinine Clr Calc Pharmacy 34.50 Normal [facility] Comment on above: Result Comment: PERF ORMED BY: [place] [address] PATHOLOGIST CREAM GATHERER CUCA OVGT M.D. Performed By: #### B MP, LIPID, MG #### [address] GFR/1.73 sq M.predicted MDRD (S/P/Bld) [Vol rate/Area] 37.233 mL/min/{1.73_m2} Normal [facility] Comment on above: Performed By: #### B MP, LIPID, MG #### [facility] [address] [place] [address] Bilirubin.direct [Mass/volum e] in Serum or PlasmaOrdered By: Angel Luna on 05-20-2024 Bilirubin.direct [Mass/Vol] 0.10 mg/dL 0.03-0.18 [facility] Bilirubin.total [Mass/volume ] in Serum or PlasmaOrdered By: Angel Luna on 05-20-2024 Bilirubin [Mass/Vol] 0.5 mg/dL Normal 0.3-1.0 [facility] Comment on above: Performed By: #### B MP, LIPID, MG #### [facility] [address] [place] [address] Calcium [Mass/volume] in Ser um or PlasmaOrdered By: Angel Luna on 05-20-2024 Calcium [Mass/Vol] 8.8 mg/dL Normal 8.6-10.3 [facility] Comment on above: Performed By: #### B MP, LIPID, MG #### [address] Carbon dioxide, total [Moles /volume] in Serum or PlasmaOrdered By: Angel Luna on 05-20-2024 CO2 [Moles/Vol] 24.1 mmol/L Normal 21.0-31.0 [facility] Comment on above: Performed By: #### B MP, LIPID, MG #### [place] [address] [place] Chloride [Moles/volume] in S jocelyn or PlasmaOrdered By: Angel Luna on 05-20-2024 Chloride [Moles/Vol] 106 mmol/L Normal 98-107 [facility] Comment on above: Performed By: #### B MP, LIPID, MG #### [address] Complete Blood Count Auto Di ffon 05-20-2024 Mean Corpuscular HGB Conc 32.1 g/dL Normal 32.0-35.0 [facility] Comment on above: Performed By: #### C K, BMP, BNP, HS TROP, CBC, HEPATIC, PTT, PT #### [place] [address] [place] Monocytes/100 WBC (Bld) 19.14 % Normal 0.00-20.00 [facility] Comment on above: Performed By: #### C K, BMP, BNP, HS TROP, CBC, HEPATIC, PTT, PT #### [place] [address] [place] NRBC% 0.1 /100{WBC} Normal 0-0.5 [facility] Comment on above: Performed By: #### C K, BMP, BNP, HS TROP, CBC, HEPATIC, PTT, PT #### [place] [address] [place] Creatine kinase [Enzymatic a ctivity/volume] in Serum or PlasmaOrdered By: Angel Luna on 05-20-2024 CK [Catalytic activity/Vol] 26 U/L Low 30-223 [facility] Comment on above: Performed By: #### B MP, LIPID, MG #### [facility] [address] [place] [address] Creatinine [Mass/volume] in Serum or PlasmaOrdered By: Angel Luna on 05-20-2024 Creatinine [Mass/Vol] 1.47 mg/dL High 0.60-1.20 [facility] Comment on above: Performed By: #### B MP, LIPID, MG #### [facility] [address] [place] [address] ECG 12 lead ECGon 05-20-2024 ECG 12 lead ECG [facility] [place] [address] [place] [address] Electrocardiograph Report Signed Patient: Kusum Huerta MR#: [id number] 01 : 1950 Acct:[id number] Age/Sex: 74 / F ADM Date: 05/20/24 Loc: Room: [address] [place] [address] Type: ADM INOo Attending Dr: Kali Helton [...] [place] [address] Normal [facility] Erythrocyte distribution wid th [Ratio] by Automated countOrdered By: Angel Luna on 05-20-2024 Erythrocyte distribution width (RBC) [Ratio] 19.6 % High 11.9-15.3 [facility] Comment on above: Performed By: #### C K, BMP, BNP, HS TROP, CBC, HEPATIC, PTT, PT #### [facility] [address] Erythrocytes [#/volume] in B lood by Automated countOrdered By: Angel Luna on 05-20-2024 RBC (Bld) [#/Vol] 3.82 10*6/uL Normal 3.60-5.00 [facility] Comment on above: Performed By: #### C K, BMP, BNP, HS TROP, CBC, HEPATIC, PTT, PT #### [facility] [address] Glucose [Mass/volume] in Ser um or PlasmaOrdered By: Angel Luna on 05-20-2024 Glucose [Mass/Vol] 108 mg/dL High 70-100 [facility] Comment on above: ADA recommended refe rence rangeRandom Glucose Reference Range is dependent on time and content of last meal. Glucose of more than 200 mg/dL in a nonstressed, ambulatory subject supports the diagnosis of Diabetes Mellitus. Result Comment: [place] om Glucose Reference Range is dependent on time and content of last meal. Glucose of more than 200 mg/dL in a nonstressed, ambulatory subject supports the diagnosis of Diabetes Mellitus. ADA recommended reference range Performed By: #### B MP, LIPID, MG #### [facility] [address] Hematocrit [Volume Fraction] of Blood by Automated countOrdered By: Angel Luna on 05-20-2024 Hematocrit (Bld) [Volume fraction] 31.3 % Low 34.0-46.4 [facility] Comment on above: Performed By: #### C K, BMP, BNP, HS TROP, CBC, HEPATIC, PTT, PT #### [facility] [address] Hemoglobin [Mass/volume] in BloodOrdered By: Angel Luna on 05-20-2024 Hemoglobin (Bld) [Mass/Vol] 10.0 g/dL Low 11.8-15.4 [facility] Comment on above: Performed By: #### C K, BMP, BNP, HS TROP, CBC, HEPATIC, PTT, PT #### [facility] [address] [place] [id number] [facility] Hepatic Panelon 05-20-2024 Albumin [Mass/Vol] 3.7 g/dL Normal 3.5-5.7 [facility] Comment on above: Performed By: #### B MP, LIPID, MG #### [facility] [address] Bilirubin,Indirect 0.4 mg/dL Normal [facility] Comment on above: Performed By: #### B MP, LIPID, MG #### [facility] [address] Bilirubin.indirect [Mass/Vol] 0.10 mg/dL Normal 0.03-0.18 [facility] Comment on above: Performed By: #### B MP, LIPID, MG #### [facility] [address] INR in Platelet poor plasma by Coagulation assayOrdered By: Angel Luna on 05-20-2024 INR Coag (PPP) [Relative time] 1.1 {INR} Normal [facility] Comment on above: INR Therapeutic [...] By: #### B MP, LIPID, MG #### [facility] [address] Leukocytes [#/volume] correc jovani for nucleated erythrocytes in Blood by Automated counOrdered By: Angel Luna on 05-20-2024 WBC corrected for nucl RBC Auto (Bld) [#/Vol] 4.3 10*3/uL 3.8-11.6 [facility] Leukocytes [#/volume] in Blo od by Automated countOrdered By: Angel Luna on 05-20-2024 WBC (Bld) [#/Vol] 4.3 10*3/uL Normal 3.8-11.6 [facility] Comment on above: Performed By: #### C K, BMP, BNP, HS TROP, CBC, HEPATIC, PTT, PT #### [facility] [address] Lymphocytes [#/volume] in Bl ood by Automated countOrdered By: Angel Luna on 05-20-2024 Lymphocytes (Bld) [#/Vol] 1.7 10*3/uL Normal 1.00-4.8 [facility] Comment on above: Performed By: #### C K, BMP, BNP, HS TROP, CBC, HEPATIC, PTT, PT #### [facility] [address] [place] [address] Lymphocytes/100 leukocytes i n Blood by Automated countOrdered By: Angel Luna on 05-20-2024 Lymphocytes/100 WBC (Bld) 40.0 % Normal . [facility] Comment on above: Performed By: #### C K, BMP, BNP, HS TROP, CBC, HEPATIC, PTT, PT #### [facility] [address] MCH [Entitic mass] by Automa jovani countOrdered By: Angel Luna on 05-20-2024 MCH (RBC) [Entitic mass] 26.3 pg Normal 24.7-34.3 [facility] Comment on above: Performed By: #### C K, BMP, BNP, HS TROP, CBC, HEPATIC, PTT, PT #### [facility] [address] [place] [address] MCHC Auto (RBC) [Mass/Vol]Or dered By: Angel Luna on 05-20-2024 MCHC (RBC) [Mass/Vol] 32.1 g/dL 32.0-35.0 [facility] MCV [Entitic volume] by Auto mated countOrdered By: Angel Jeremy on 05-20-2024 MCV (RBC) [Entitic vol] 81.9 fL Normal 80-100 [facility] Comment on above: Performed By: #### C K, BMP, BNP, HS TROP, CBC, HEPATIC, PTT, PT #### [facility] [address] Monocyte distribution width [Entitic volume] in Blood by AutomatedOrdered By: Angel Luna on 05-20-2024 Monocyte distribution width Auto (Bld) [Entitic vol] 19.14 % 0.00-20.00 [facility] Neutrophils [#/volume] in Bl ood by Automated countOrdered By: Angel Luna on 05-20-2024 Neutrophils (Bld) [#/Vol] 1.9 10*3/uL Normal 1.8-7.7 [facility] Comment on above: Performed By: #### C K, BMP, BNP, HS TROP, CBC, HEPATIC, PTT, PT #### [facility] [address] No Panel InformationOrdered By: Angel Luna on 05-20-2024 Estimated GFR (CKD-EPI) 37.233 mL/Min [facility] Creatinine Clearance (Chem 34.50 [facility] Nucleated erythrocytes [Pres ence] in Blood by Automated countOrdered By: Angel Luna on 05-20-2024 Nucleated RBC Auto Ql (Bld) 0.1 /100{WBC} 0-0.5 [facility] Partial Thromboplastin Timeo n 05-20-2024 aPTT Coag (Bld) [Time] 22.7 s Low 25.1-36.5 [facility] Comment on above: Result Comment: A he matocrit value greater than 55% may lead to inaccurate results in coagulation testing. Patients having hematocrit values >55% require a special collection tube for coagulation studies. Please contact the laboratory at [phone] for redraw instructions. PERFORMED BY: [place] [address] PATHOLOGIST CREAM GATHERER CUCA VOGT M.D. Performed By: #### B MP, LIPID, MG #### [address] Platelet mean volume [Entiti c volume] in Blood by Automated countOrdered By: Angel Luna on 05-20-2024 Platelet mean volume (Bld) [Entitic vol] 8.4 fL Normal 6.3-10.7 [facility] Comment on above: Performed By: #### C K, BMP, BNP, HS TROP, CBC, HEPATIC, PTT, PT #### [facility] [address] Platelets [#/volume] in Bloo d by Automated countOrdered By: Angel Luna on 05-20-2024 Platelets (Bld) [#/Vol] 220 10*3/uL Normal 150-450 [facility] Comment on above: Performed By: #### C K, BMP, BNP, HS TROP, CBC, HEPATIC, PTT, PT #### [address] Potassium [Moles/volume] in Serum or PlasmaOrdered By: Angel Luna on 05-20-2024 Potassium [Moles/Vol] 3.8 mmol/L Normal 3.5-5.1 [facility] Comment on above: Performed By: #### B MP, LIPID, MG #### [address] Protein [Mass/volume] in Ser um or PlasmaOrdered By: Angel Luna on 05-20-2024 Protein [Mass/Vol] 7.4 g/dL Normal 6.4-8.9 [facility] Comment on above: Performed By: #### B MP, LIPID, MG #### [address] Prothrombin time (PT)Ordered By: Angel Luna on 05-20-2024 PT Coag (PPP) [Time] 12.4 s Normal 9.0-12.9 [facility] Comment on above: A hematocrit value g reater than 55% may lead to inaccurate results in coagulation testing. Patients having hematocrit values >55% require a special collection tube for coagulation studies. Please contact the laboratory at [phone] for redraw instructions. Result Comment: A he matocrit value greater than 55% may lead to inaccurate results in coagulation testing. Patients having hematocrit values >55% require a special collection tube for coagulation studies. Please contact the laboratory at [phone] for redraw instructions. Performed By: #### B MP, LIPID, MG #### [address] Serum globulin measurement b y calculation (mass/volume)Ordered By: Angel Luna on 05-20-2024 Globulin (S) [Mass/Vol] 3.7 g/dL [facility] Comment on above: Performed By: #### B MP, LIPID, MG #### [address] Serum or plasma albumin/glob ulin mass ratioOrdered By: Angel Luna on 05-20-2024 Albumin/Globulin [Mass ratio] 1.0 {ratio} [facility] Comment on above: Performed By: #### B MP, LIPID, MG #### [address] Serum or plasma anion gap de terminationOrdered By: Angel Luna on 05-20-2024 Anion gap [Moles/Vol] 11.7 mmol/L Normal 6.0-15.0 [facility] Comment on above: Performed By: #### B MP, LIPID, MG #### [address] Serum or plasma non-glucuron idated bilirubin measurement (mass/volume)Ordered By: Angel Luna on 05-20-2024 Bilirubin.indirect [Mass/Vol] 0.4 mg/dL [facility] Sodium [Moles/volume] in Ser um or PlasmaOrdered By: Angel Luna on 05-20-2024 Sodium [Moles/Vol] 138 mmol/L Normal 136-145 [facility] Comment on above: Performed By: #### B MP, LIPID, MG #### [address] Troponin I High Sensitivityo n 05-20-2024 Troponin I High Sensitivity 43.8 pg/mL High 0.0-15.0 [facility] Comment on above: Result Comment: PERF ORMED BY: [place] [address] PATHOLOGIST CREAM GATHERER CUCA VOGT M.D. Performed By: #### B MP, LIPID, MG #### [address] Troponin I High Sensitivity 39.2 pg/mL High 0.0-15.0 [facility] Comment on above: Result Comment: PERF ORMED BY: [place] [address] PATHOLOGIST CREAM GATHERER CUCA VOGT M.D. Performed By: #### B MP, LIPID, MG #### [address] Troponin I.cardiac [Mass/vol ume] in Serum or Plasma by Detection limit <= 0.01 ng/Ordered By: Angel Luna on 05-20-2024 Troponin I.cardiac DL <= 0.01 ng/mL [Mass/Vol] 39.2 pg/mL High 0.0-15.0 [facility] Urea nitrogen [Mass/volume] in Serum or PlasmaOrdered By: Angel Luna on 05-20-2024 Urea nitrogen [Mass/Vol] 24 mg/dL Normal 7-25 [facility] Comment on above: Performed By: #### B MP, LIPID, MG #### [place] [address] [place] XR chest 2V*on 05-20-2024 XR chest 2V* [facility] [place] [address] XRay Report Signed Patient: Kusum Huerta MR#: [id number] 01 : 1950 Acct:[id number] Age/Sex: 74 / F ADM Date: 05/20/24 [...] Yaw Deluca M.D.05/20/2024 5:00 PM Dictation Location: [place] [address] Transcribed By: [facility] 05/20/24 1700 Dictated By: Yaw Deluca II, MD 05/20/24 1658 Signed By: 05/20/24 1700 Normal [facility] Alanine aminotransferase [En zymatic activity/volume] in Serum or PlasmaOrdered By: Shahzad Gomez on 05-18-2024 ALT [Catalytic activity/Vol] 10 U/L Normal 7-52 [facility] Comment on above: Performed By: #### B MP, LIPID, MG #### [facility] [address] [place] [address] [place] Albumin [Mass/volume] in Ser um or Plasma by Bromocresol green (BCG) dye binding methoOrdered By: Shahzad Gomez on 05-18-2024 Albumin BCG dye [Mass/Vol] 3.4 g/dL Low 3.5-5.7 [facility] Alkaline phosphatase [Enzyma tic activity/volume] in Serum or PlasmaOrdered By: Shahzad Gomez on 05-18-2024 ALP [Catalytic activity/Vol] 75 U/L Normal 34-104 [facility] Comment on above: Performed By: #### B MP, LIPID, MG #### [facility] [address] [place] [address] [place] Aspartate aminotransferase [ Enzymatic activity/volume] in Serum or PlasmaOrdered By: Shahzad Gomez on 05-18-2024 AST [Catalytic activity/Vol] 16 U/L Normal 13-39 [facility] Comment on above: Performed By: #### B MP, LIPID, MG #### [address] Automated basophil %Ordered By: Isabelle Dale on 05-18-2024 Basophils/100 WBC (Bld) 1.9 % Normal . [facility] Comment on above: Performed By: #### B MP, LIPID, MG #### [address] Automated basophil countOrde red By: Isabelle Dale on 05-18-2024 Basophils (Bld) [#/Vol] 0.1 10*3/uL Normal 0.0-0.2 [facility] Comment on above: Result Comment: PERF ORMED BY: [place] [address] PATHOLOGIST CREAM GATHERER CUCA VOGT M.D. Performed By: #### B MP, LIPID, MG #### [address] Automated blood monocyte cou ntOrdered By: Isabelle Dale on 05-18-2024 Monocytes (Bld) [#/Vol] 0.5 10*3/uL Normal 0.0-0.8 [facility] Comment on above: Performed By: #### B MP, LIPID, MG #### [address] Automated eosinophil %Ordere d By: Isabelle Dale on 05-18-2024 Eosinophils/100 WBC (Bld) 5.3 % Normal . [facility] Comment on above: Performed By: #### B MP, LIPID, MG #### [address] Automated eosinophil countOr dered By: Isabelle Dale on 05-18-2024 Eosinophils (Bld) [#/Vol] 0.2 10*3/uL Normal 0.0-0.45 [facility] Comment on above: Performed By: #### B MP, LIPID, MG #### [address] Automated monocyte %Ordered By: Isabelle Dale on 05-18-2024 Monocytes/100 WBC (Bld) 12.9 % Normal . [facility] Comment on above: Performed By: #### B MP, LIPID, MG #### [address] Automated neutrophil %Ordere d By: Isabelle Dale on 05-18-2024 Neutrophils/100 WBC (Bld) 37.4 % Normal . [facility] Comment on above: Performed By: #### B MP, LIPID, MG #### [address] Bilirubin.total [Mass/volume ] in Serum or PlasmaOrdered By: Obaydah Daromar on 05-18-2024 Bilirubin [Mass/Vol] 0.4 mg/dL Normal 0.3-1.0 [facility] Comment on above: Performed By: #### B MP, LIPID, MG #### [address] Calcium [Mass/volume] in Ser um or PlasmaOrdered By: Obaydah Daromar on 05-18-2024 Calcium [Mass/Vol] 8.6 mg/dL Normal 8.6-10.3 [facility] Comment on above: Performed By: #### B MP, LIPID, MG #### [address] Carbon dioxide, total [Moles /volume] in Serum or PlasmaOrdered By: Obaydah Daromar on 05-18-2024 CO2 [Moles/Vol] 23.0 mmol/L Normal 21.0-31.0 [facility] Comment on above: Performed By: #### B MP, LIPID, MG #### [place] [address] [place] Chloride [Moles/volume] in S jocelyn or PlasmaOrdered By: Shahzad Gomez on 05-18-2024 Chloride [Moles/Vol] 109 mmol/L High 98-107 [facility] Comment on above: Performed By: #### B MP, LIPID, MG #### [address] Complete Blood Count Auto Di ffon 05-18-2024 Mean Corpuscular HGB Conc 31.6 g/dL Low 32.0-35.0 [facility] Comment on above: Performed By: #### B MP, LIPID, MG #### [facility] [address] [place] [address] NRBC% 0.3 /100{WBC} Normal 0-0.5 [facility] Comment on above: Performed By: #### B MP, LIPID, MG #### [address] Comprehensive Metabolic Pane murphy 05-18-2024 Albumin [Mass/Vol] 3.4 g/dL Low 3.5-5.7 [facility] Comment on above: Performed By: #### B MP, LIPID, MG #### [address] Creatinine Clr Calc Pharmacy 32.87 Normal [facility] Comment on above: Result Comment: PERF ORMED BY: [place] [address] PATHOLOGIST CREAM GATHERER CUCA VOGT M.D. Performed By: #### B MP, LIPID, MG #### [address] GFR/1.73 sq M.predicted MDRD (S/P/Bld) [Vol rate/Area] 34.939 mL/min/{1.73_m2} Normal [facility] Comment on above: Performed By: #### B MP, LIPID, MG #### [address] Creatinine [Mass/volume] in Serum or PlasmaOrdered By: Shahzad Marrufoomar on 05-18-2024 Creatinine [Mass/Vol] 1.55 mg/dL High 0.60-1.20 [facility] Comment on above: Performed By: #### B MP, LIPID, MG #### [facility] [address] Erythrocyte distribution wid th [Ratio] by Automated countOrdered By: Isabelle Dale on 05-18-2024 Erythrocyte distribution width (RBC) [Ratio] 20.1 % High 11.9-15.3 [facility] Comment on above: Performed By: #### B MP, LIPID, MG #### [facility] [address] Erythrocytes [#/volume] in B lood by Automated countOrdered By: Isabelle Dale on 05-18-2024 RBC (Bld) [#/Vol] 3.62 10*6/uL Normal 3.60-5.00 [facility] Comment on above: Performed By: #### B MP, LIPID, MG #### [facility] [address] [place] [address] [place] Glucose [Mass/volume] in Ser um or PlasmaOrdered By: Shahzad Gomez on 05-18-2024 Glucose [Mass/Vol] 110 mg/dL High 70-100 [facility] Comment on above: ADA recommended refe rence rangeRandom Glucose Reference Range is dependent on time and content of last meal. Glucose of more than 200 mg/dL in a nonstressed, ambulatory subject supports the diagnosis of Diabetes Mellitus. Result Comment: [place] Glucose Reference Range is dependent on time and content of last meal. Glucose of more than 200 mg/dL in a nonstressed, ambulatory subject supports the diagnosis of Diabetes Mellitus. ADA recommended reference range Performed By: #### B MP, LIPID, MG #### [facility] [address] [place] [address] [place] Hematocrit [Volume Fraction] of Blood by Automated countOrdered By: Isabelle Dale on 05-18-2024 Hematocrit (Bld) [Volume fraction] 29.8 % Low 34.0-46.4 [facility] Comment on above: Performed By: #### B MP, LIPID, MG #### [facility] [address] [place] [address] Hemoglobin [Mass/volume] in BloodOrdered By: Isabelle Dale on 05-18-2024 Hemoglobin (Bld) [Mass/Vol] 9.4 g/dL Low 11.8-15.4 [facility] Comment on above: Performed By: #### B MP, LIPID, MG #### [facility] [address] Leukocytes [#/volume] correc jovani for nucleated erythrocytes in Blood by Automated counOrdered By: Isabelle Dale on 05-18-2024 WBC corrected for nucl RBC Auto (Bld) [#/Vol] 3.8 10*3/uL 3.8-11.6 [facility] Leukocytes [#/volume] in Blo od by Automated countOrdered By: Isabelle Dale on 05-18-2024 WBC (Bld) [#/Vol] 3.8 10*3/uL Normal 3.8-11.6 [facility] Comment on above: Performed By: #### B MP, LIPID, MG #### [facility] [address] [place] [address] [place] Lymphocytes [#/volume] in Bl ood by Automated countOrdered By: Isabelle Dale on 05-18-2024 Lymphocytes (Bld) [#/Vol] 1.6 10*3/uL Normal 1.00-4.8 [facility] Comment on above: Performed By: #### B MP, LIPID, MG #### [facility] [address] [place] [address] [place] Lymphocytes/100 leukocytes i n Blood by Automated countOrdered By: Isabelle Dale on 05-18-2024 Lymphocytes/100 WBC (Bld) 42.5 % Normal . [facility] Comment on above: Performed By: #### B MP, LIPID, MG #### [facility] [address] [place] [address] [place] MCH [Entitic mass] by Automa jovani countOrdered By: Isabelle Dale on 05-18-2024 MCH (RBC) [Entitic mass] 26.1 pg Normal 24.7-34.3 [facility] Comment on above: Performed By: #### B MP, LIPID, MG #### [facility] [address] [place] [address] MCHC Auto (RBC) [Mass/Vol]Or dered By: Isabelle Dale on 05-18-2024 MCHC (RBC) [Mass/Vol] 31.6 g/dL Low 32.0-35.0 [facility] MCV [Entitic volume] by Auto mated countOrdered By: Isabelle Dale on 05-18-2024 MCV (RBC) [Entitic vol] 82.4 fL Normal 80-100 [facility] Comment on above: Performed By: #### B MP, LIPID, MG #### [facility] [address] [place] [address] Neutrophils [#/volume] in Bl ood by Automated countOrdered By: Isabelle Dale on 05-18-2024 Neutrophils (Bld) [#/Vol] 1.4 10*3/uL Low 1.8-7.7 [facility] Comment on above: Performed By: #### B MP, LIPID, MG #### [facility] [address] [place] [address] No Panel InformationOrdered By: Shahzad Gomez on 05-18-2024 Estimated GFR (CKD-EPI) 34.939 mL/Min [facility] Creatinine Clearance (Chem 32.87 [facility] Nucleated erythrocytes [Pres ence] in Blood by Automated countOrdered By: Isabelle Dale on 05-18-2024 Nucleated RBC Auto Ql (Bld) 0.3 /100{WBC} 0-0.5 [facility] Platelet mean volume [Entiti c volume] in Blood by Automated countOrdered By: Isabelle Dale on 05-18-2024 Platelet mean volume (Bld) [Entitic vol] 8.6 fL Normal 6.3-10.7 [facility] Comment on above: Performed By: #### B MP, LIPID, MG #### [facility] [address] [place] [address] Platelets [#/volume] in Bloo d by Automated countOrdered By: Isabelle Dale on 05-18-2024 Platelets (Bld) [#/Vol] 193 10*3/uL Normal 150-450 [facility] Comment on above: Performed By: #### B MP, LIPID, MG #### [facility] [address] [place] [address] Potassium [Moles/volume] in Serum or PlasmaOrdered By: Obaydah Daromar on 05-18-2024 Potassium [Moles/Vol] 3.9 mmol/L Normal 3.5-5.1 [facility] Comment on above: Performed By: #### B MP, LIPID, MG #### [facility] [address] [place] [address] Protein [Mass/volume] in Ser um or PlasmaOrdered By: Obaydah Daromar on 05-18-2024 Protein [Mass/Vol] 7.0 g/dL Normal 6.4-8.9 [facility] Comment on above: Performed By: #### B MP, LIPID, MG #### [facility] [address] [place] [address] Serum globulin measurement b y calculation (mass/volume)Ordered By: Obaydah Daromar on 05-18-2024 Globulin (S) [Mass/Vol] 3.6 g/dL [facility] Comment on above: Performed By: #### B MP, LIPID, MG #### [facility] [address] [place] [address] Serum or plasma albumin/glob ulin mass ratioOrdered By: Obaydah Daromar on 05-18-2024 Albumin/Globulin [Mass ratio] 0.9 {ratio} [facility] Comment on above: Performed By: #### B MP, LIPID, MG #### [facility] [address] [place] [address] Serum or plasma anion gap de terminationOrdered By: Obaydah Daromar on 05-18-2024 Anion gap [Moles/Vol] 10.9 mmol/L Normal 6.0-15.0 [facility] Comment on above: Performed By: #### B MP, LIPID, MG #### [address] Sodium [Moles/volume] in Ser um or PlasmaOrdered By: Obaydah Daromar on 05-18-2024 Sodium [Moles/Vol] 139 mmol/L Normal 136-145 [facility] Comment on above: Performed By: #### B MP, LIPID, MG #### [address] Urea nitrogen [Mass/volume] in Serum or PlasmaOrdered By: Obaydah [employer]omar on 05-18-2024 Urea nitrogen [Mass/Vol] 42 mg/dL High 725 [facility] Comment on above: Performed By: #### B MP, LIPID, MG #### [place] [address] [place] Bacteria [Presence] in Urine by AutomatedOrdered By: [employer] - [employer] Ticketsomar on 05-17-2024 Bacteria Auto Ql (U) None seen [HPF] None Seen [facility] Basic Metabolic Panelon 04-24 Anion gap [Moles/Vol] 15.6 mmol/L High 6.0-15.0 [facility] Comment on above: Performed By: #### B MP, LIPID, MG #### [place] [address] [place] Calcium [Mass/Vol] 8.5 mg/dL Low 8.6-10.3 [facility] Comment on above: Performed By: #### B MP, LIPID, MG #### [place] [address] [place] Chloride [Moles/Vol] 114 mmol/L High 98-107 [facility] Comment on above: Performed By: #### B MP, LIPID, MG #### [address] CO2 [Moles/Vol] 15.1 mmol/L Low 21.0-31.0 [facility] Comment on above: Performed By: #### B MP, LIPID, MG #### [address] Creatinine [Mass/Vol] 1.96 mg/dL High 0.60-1.20 [facility] Comment on above: Performed By: #### B MP, LIPID, MG #### [address] Creatinine Clr Calc Pharmacy 25.85 Normal [facility] Comment on above: Performed By: #### B MP, LIPID, MG #### [address] GFR/1.73 sq M.predicted MDRD (S/P/Bld) [Vol rate/Area] 26.364 mL/min/{1.73_m2} Normal [facility] Comment on above: Performed By: #### B MP, LIPID, MG #### [address] Glucose [Mass/Vol] 80 mg/dL Normal 70-100 [facility] Comment on above: Result Comment: [facility] Glucose Reference Range is dependent on time and content of last meal. Glucose of more than 200 mg/dL in a nonstressed, ambulatory subject supports the diagnosis of Diabetes Mellitus. ADA recommended reference range Performed By: #### B MP, LIPID, MG #### [address] Potassium [Moles/Vol] 4.7 mmol/L Normal 3.5-5.1 [facility] Comment on above: Performed By: #### B MP, LIPID, MG #### [place] [address] [place] Sodium [Moles/Vol] 140 mmol/L Normal 136-145 [facility] Comment on above: Performed By: #### B MP, LIPID, MG #### [address] Urea nitrogen [Mass/Vol] 52 mg/dL High 7-25 [facility] Comment on above: Performed By: #### B MP, LIPID, MG #### [facility] [address] Bilirubin Test strip Ql (U)O rdered By: Shahzad Gomez on 05-17-2024 Bilirubin Ql (U) Negative Negative [facility] Cholesterol [Mass/volume] in Serum or PlasmaOrdered By: Yulia Jacob on 05-17-2024 Cholesterol [Mass/Vol] 111 mg/dL Low 140-200 [facility] Comment on above: Chol less than 200 m g/dl low riskChol 201-239 mg/dl borderline riskChol 240 mg/dl and greater high risk Result Comment: Chol less than 200 mg/dl low risk Chol 201-239 mg/dl borderline risk Chol 240 mg/dl and greater high risk Performed By: #### B MP, LIPID, MG #### [facility] [address] Cholesterol in LDL Calc [Mas s/Vol]Ordered By: Yulia Jacob on 05-17-2024 Cholesterol in LDL [Mass/Vol] 61 mg/dL 0-100 [facility] Comment on above: LDL ATP III CLASSIFI CATIONLDL less than 100 mg/dL OptimalLDL 100-129 mg/dL Near or above optimalLDL 130-159 mg/dL Borderline highLDL 160-189 mg/dL HighLDL greater than 189 mg/dL Very high Cholesterol in VLDL Calc [Ma ss/Vol]Ordered By: Yulia Jacob on 05-17-2024 Cholesterol in VLDL [Mass/Vol] 21 mg/dL [facility] Color of Urine by AutoOrdere d By: Shahzad Gomez on 05-17-2024 Color (U) Light-yellow Normal Yellow [facility] Comment on above: Order Comment: Name Collection Type:: Clean-Voided Midstream Performed By: #### U CREA, CHETAN, ADDONUAPLUS #### [facility] [address] Complete Blood Count Auto Di ffon 05-17-2024 Basophils (Bld) [#/Vol] 0.1 10*3/uL Normal 0.0-0.2 [facility] Comment on above: Order Comment: DRAW AT 0830 WITH HER OTHER LAB Result Comment: PERF ORMED BY: [place] [address] PATHOLOGIST CREAM GATHERER CUCA VOGT M.D. Performed By: #### B MP, LIPID, MG #### [address] Basophils/100 WBC (Bld) 2.7 % Normal . [facility] Comment on above: Order Comment: DRAW AT 0830 WITH HER OTHER LAB Performed By: #### B MP, LIPID, MG #### [address] Eosinophils (Bld) [#/Vol] 0.0 10*3/uL Normal 0.0-0.45 [facility] Comment on above: Order Comment: DRAW AT 0830 WITH HER OTHER LAB Performed By: #### B MP, LIPID, MG #### [address] Eosinophils/100 WBC (Bld) 0.5 % Normal . [facility] Comment on above: Order Comment: DRAW AT 0830 WITH HER OTHER LAB Performed By: #### B MP, LIPID, MG #### [address] Erythrocyte distribution width (RBC) [Ratio] 20.4 % High 11.9-15.3 [facility] Comment on above: Order Comment: DRAW AT 0830 WITH HER OTHER LAB Performed By: #### B MP, LIPID, MG #### [address] Hematocrit (Bld) [Volume fraction] 30.9 % Low 34.0-46.4 [facility] Comment on above: Order Comment: DRAW AT 0830 WITH HER OTHER LAB Performed By: #### B MP, LIPID, MG #### [address] Hemoglobin (Bld) [Mass/Vol] 9.6 g/dL Low 11.8-15.4 [facility] Comment on above: Order Comment: DRAW AT 0830 WITH HER OTHER LAB Performed By: #### B MP, LIPID, MG #### [address] Lymphocytes (Bld) [#/Vol] 1.1 10*3/uL Normal 1.00-4.8 [facility] Comment on above: Order Comment: DRAW AT 0830 WITH HER OTHER LAB Performed By: #### B MP, LIPID, MG #### [address] Lymphocytes/100 WBC (Bld) 29.6 % Normal . [facility] Comment on above: Order Comment: DRAW AT 0830 WITH HER OTHER LAB Performed By: #### B MP, LIPID, MG #### [address] MCH (RBC) [Entitic mass] 26.1 pg Normal 24.7-34.3 [facility] Comment on above: Order Comment: DRAW AT 0830 WITH HER OTHER LAB Performed By: #### B MP, LIPID, MG #### [address] MCV (RBC) [Entitic vol] 83.8 fL Normal 80-100 [facility] Comment on above: Order Comment: DRAW AT 0830 WITH HER OTHER LAB Performed By: #### B MP, LIPID, MG #### [address] Mean Corpuscular HGB Conc 31.2 g/dL Low 32.0-35.0 [facility] Comment on above: Order Comment: DRAW AT 0830 WITH HER OTHER LAB Performed By: #### B MP, LIPID, MG #### [address] Monocytes (Bld) [#/Vol] 0.4 10*3/uL Normal 0.0-0.8 [facility] Comment on above: Order Comment: DRAW AT 0830 WITH HER OTHER LAB Performed By: #### B MP, LIPID, MG #### [address] Monocytes/100 WBC (Bld) 10.0 % Normal . [facility] Comment on above: Order Comment: DRAW AT 0830 WITH HER OTHER LAB Performed By: #### B MP, LIPID, MG #### [address] Neutrophils (Bld) [#/Vol] 2.1 10*3/uL Normal 1.8-7.7 [facility] Comment on above: Order Comment: DRAW AT 0830 WITH HER OTHER LAB Performed By: #### B MP, LIPID, MG #### [place] [address] [place] Neutrophils/100 WBC (Bld) 57.2 % Normal . [facility] Comment on above: Order Comment: DRAW AT 0830 WITH HER OTHER LAB Performed By: #### B MP, LIPID, MG #### [address] NRBC% 0.2 /100{WBC} Normal 0-0.5 [facility] Comment on above: Order Comment: DRAW AT 0830 WITH HER OTHER LAB Performed By: #### B MP, LIPID, MG #### [address] Platelet mean volume (Bld) [Entitic vol] 8.4 fL Normal 6.3-10.7 [facility] Comment on above: Order Comment: DRAW AT 0830 WITH HER OTHER LAB Performed By: #### B MP, LIPID, MG #### [place] [address] [place] Platelets (Bld) [#/Vol] 218 10*3/uL Normal 150-450 [facility] Comment on above: Order Comment: DRAW AT 0830 WITH HER OTHER LAB Performed By: #### B MP, LIPID, MG #### [place] [address] [place] RBC (Bld) [#/Vol] 3.69 10*6/uL Normal 3.60-5.00 [facility] Comment on above: Order Comment: DRAW AT 0830 WITH HER OTHER LAB Performed By: #### B MP, LIPID, MG #### [place] [address] [place] WBC (Bld) [#/Vol] 3.7 10*3/uL Low 3.8-11.6 [facility] Comment on above: Order Comment: DRAW AT 0830 WITH HER OTHER LAB Performed By: #### B MP, LIPID, MG #### [facility] [address] Creatinine [Mass/volume] in UrineOrdered By: Shahzad Gomez on 05-17-2024 Creatinine (U) [Mass/Vol] 80.00 mg/dL [facility] Comment on above: No reference range e stablished Creatinine, Urine (Random)on 05-17-2024 Creatinine, Urine (Random) 80.00 mg/dL Normal [facility] Comment on above: Result Comment: No r eference range established Performed By: #### U CREA, CHETAN, ADDONUAPLUS #### [address] Dipstick and Microscopicon 0 05-17-2024 Bacteria,Urine None Seen Normal None Seen [facility] Comment on above: Order Comment: Name Collection Type:: Clean-Voided Midstream Performed By: #### U CREA, CHETAN, ADDONUAPLUS #### [address] Bilirubin,Urine Negative Normal Negative [facility] Comment on above: Order Comment: Name Collection Type:: Clean-Voided Midstream Performed By: #### U CREA, CHETAN, ADDONUAPLUS #### [address] Glucose Ql (U) Normal Normal Normal [facility] Comment on above: Order Comment: Name Collection Type:: Clean-Voided Midstream Performed By: #### U CREA, CHETAN, ADDONUAPLUS #### [place] [address] [place] Hyaline Casts,Urine 0-8 Normal 0-8 [facility] Comment on above: Order Comment: Name Collection Type:: Clean-Voided Midstream Performed By: #### U CREA, CHETAN, ADDONUAPLUS #### [place] [address] [place] Mucus,Urine Rare Normal [facility] Comment on above: Order Comment: Name Collection Type:: Clean-Voided Midstream Result Comment: PERF ORMED BY: [place] [address] PATHOLOGIST CREAM GATHERER CUCA VOGT M.D. Performed By: #### U CREA, CHETAN, ADDONUAPLUS #### [place] [address] [place] Nitrite,Urine Negative Normal Negative [facility] Comment on above: Order Comment: Name Collection Type:: Clean-Voided Midstream Performed By: #### U CREA, CHETAN, ADDONUAPLUS #### [place] [address] [place] Occult Blood,Urine Negative Normal Negative [facility] Comment on above: Order Comment: Name Collection Type:: Clean-Voided Midstream Result Comment: PERF ORMED BY: [place] [address] PATHOLOGIST CREAM GATHERER CUCA VOGT M.D. Performed By: #### U CREA, CHETAN, ADDONUAPLUS #### [address] RBC,Urine 1-2 Normal 0-4 [facility] Comment on above: Order Comment: Name Collection Type:: Clean-Voided Midstream Performed By: #### U CREA, CHETAN, ADDONUAPLUS #### [place] [address] [place] Specificy [place],Urine 1.022 Normal 1.001-1.03 0 [facility] Comment on above: Order Comment: Name Collection Type:: Clean-Voided Midstream Performed By: #### U CREA, CHETAN, ADDONUAPLUS #### [place] [address] [place] Squamous Epithelial Cell,Urine 5-9 High 0-2 [facility] Comment on above: Order Comment: Name Collection Type:: Clean-Voided Midstream Performed By: #### U CREA, CHETAN, ADDONUAPLUS #### [facility] [address] Urobilinogen,Urine Normal Normal Normal [facility] Comment on above: Order Comment: Name Collection Type:: Clean-Voided Midstream Performed By: #### U CREA, CHETAN, ADDONUAPLUS #### [facility] [address] WBC,Urine 1-2 Normal 0-4 The [facility] Comment on above: Order Comment: Name Collection Type:: Clean-Voided Midstream Performed By: #### U CREA, CHETAN, ADDONUAPLUS #### [facility] [address] ECG 12 lead ECGon 05-17-2024 ECG 12 lead ECG [facility] Main [place] [address] [place] [address] Electrocardiograph Report Signed Patient: Kusum Huerta MR#: [id number] [birth year] : 1950 Acct:[id number] Age/Sex: 74 / F ADM Date: 05/16/24 Loc: Room: [address] [place] [address] Type: ADM IN Attending Dr: Shahzad Gomez [...] Referred By: Electronically Signed By:ANGEL IBARRA MD LEGACY HEALTHEfren Transcribed By: MUS Signed By Devante Ibarra MD 05/17/24 0841 Normal [facility] ECH echo transthoracicon [facility] echo transthoracic [facility] Main [place] [address] [place] [address] Echocardiogram Signed Patient: Kusum Huerta MR#: [id number] 01 : 1950 Acct:[id number] Age/Sex: 74 / F ADM Date: 05/16/24 Loc: Room: [address] [place] [address] Type: ADM IN Attending Dr: Shahzad Gomez MD Ordering Provider: Yulia Jacob APRN Date of Service: 05/17/24 [facility] echo transthoracic: chest pain, murmur Copies to: LORRIE Contreras MD Height: 62 in Weight: 193 lb Performed By: CLAUDIA Christiansen BSA: 1.9 m2 BP: 152/78 mmHg HR: 75 Reason For Study: chest pain, murmur History: COVID, [place], HTN, Hyperlipidemia, Cancer, PCI, Family history: CAD, [...] Devante Ibarra MD 05/17/24 1703 Normal [facility] Epithelial cells.squamous [# /area] in Urine sediment by Automated countOrdered By: Shahzad Gomez on 05-17-2024 Epithelial cells.squamous Auto (Urine sed) [#/Area] 5-9 [HPF] High 0-2 [facility] Erythrocytes [#/area] in Uri ne sediment by Automated countOrdered By: Shahzad Gomez on 05-17-2024 RBC Auto (Urine sed) [#/Area] 1-2 [HPF] 0-4 [facility] Glucose [Mass/volume] in Uri ne by Test stripOrdered By: Shahzad Gomez on 05-17-2024 Glucose Test strip (U) [Mass/Vol] Normal mg/dL Normal [facility] Hemoglobin Test strip Ql (U) Ordered By: Shahzad Gomez on 05-17-2024 Hemoglobin Ql (U) Negative Negative [facility] Hyaline casts [#/area] in Ur ine sediment by Automated countOrdered By: Shahzad Gomez on 05-17-2024 Hyaline casts Auto (Urine sed) [#/Area] 0-8 [LPF] 0-8 [facility] Ketones [Presence] in Urine by Test stripOrdered By: Shahzad Gomez on 05-17-2024 Ketones Ql (U) Trace High Negative [facility] Comment on above: Order Comment: Name Collection Type:: Clean-Voided Midstream Performed By: #### U CREA, CHETAN, ADDONUAPLUS #### [facility] [address] [place] [address] [place] Lactate [Moles/volume] in Se rum or PlasmaOrdered By: Shahzad Gomez on 05-17-2024 Lactate [Moles/Vol] 0.9 mmol/L Normal 0.5-2.2 [facility] Comment on above: Result Comment: PERF ORMED BY: [place] [address] PATHOLOGIST CREAM GATHERER CUCA VOGT M.D. Performed By: #### B MP, LIPID, MG #### [facility] [address] [place] [address] [place] Leukocyte esterase [Presence ] in Urine by Test stripOrdered By: Shahzad Gomez on 05-17-2024 Leukocyte esterase Test strip Ql (U) Negative Normal Negative [facility] Comment on above: Order Comment: Name Collection Type:: Clean-Voided Midstream Performed By: #### U CREA, CHETAN, ADDONUAPLUS #### [facility] [address] [place] [address] [place] Leukocytes [#/area] in Urine sediment by Automated countOrdered By: Shahzad Gomez on 05-17-2024 WBC Auto (Urine sed) [#/Area] 1-2 [HPF] 0-4 [facility] Lipid Panelon 05-17-2024 LDL Cholesterol,Calculated 61 mg/dL Normal 0-100 [facility] Comment on above: Result Comment: LDL ATP III CLASSIFICATION LDL less than 100 mg/dL Optimal LDL 100-129 mg/dL Near or above optimal LDL 130-159 mg/dL Borderline high LDL 160-189 mg/dL High LDL greater than 189 mg/dL Very high Performed By: #### B MP, LIPID, MG #### [facility] [address] Triglyceride w/Reflex 106 mg/dL Normal 0-149 [facility] Comment on above: Result Comment: TRIG ATP III CLASSIFICATION TRIG less than 150 mg/dL Normal TRIG 150-199 mg/dL Borderline high TRIG 200-500 mg/dL High TRIG greater than 500 mg/dL Very high Standard traceable to the Center for Disease Conrtrol and Prevention (CDC) test method. Performed By: #### B MP, LIPID, MG #### [facility] [address] VLDL CHOLESTEROL 21 mg/dL Normal [facility] Comment on above: Performed By: #### B MP, LIPID, MG #### [facility] [address] Magnesium [Mass/volume] in S jocelyn or PlasmaOrdered By: Yulia Jacob on 05-17-2024 Magnesium [Mass/Vol] 1.6 mg/dL Low 1.9-2.7 [facility] Comment on above: Performed By: #### B MP, LIPID, MG #### [facility] [address] Mucus [Presence] in Urine by AutomatedOrdered By: Shahzad Gomez on 05-17-2024 Mucus Auto Ql (U) Rare [LPF] [facility] Nitrite Test strip Ql (U)Ord ered By: Shahzad Gomez on 05-17-2024 Nitrite Ql (U) Negative Negative [facility] No Panel InformationOrdered By: Shahzad Gomez on 05-17-2024 Blood Gas Critical Value See comment [facility] Comment on above: Critical Value valentin d on: 05/17/2024 at 11:16 Blood Gas Sample Site Venous Fir [facility] FiO2 21 % [facility] Venous Blood Base Excess -10.8 mmol/L Low -3.0-3.0 [facility] Venous Blood Oxygen Content 6.4 mmol/L Low 6.6-9.7 [facility] Venous Blood Oxygen Saturation 91.2 % High 73.0-76.0 [facility] Venous Blood Partial Pressure CO2 32.5 mm[Hg] Low 38.0-50.0 [facility] Venous Blood Partial Pressure O2 62.5 mm[Hg] High 35.0-45.0 [facility] Venous Blood pH 7.28 Low 7.32-7.43 [facility] Protein [Mass/volume] in Uri ne by Test stripOrdered By: Shahzad Gomez on 05-17-2024 Protein (U) [Mass/Vol] 30 mg/dL High Negative [facility] Comment on above: Order Comment: Name Collection Type:: Clean-Voided Midstream Performed By: #### U CREA, CHETAN, ADDONUAPLUS #### [facility] [address] Serum or plasma high density lipoprotein (HDL) cholesterol measurementOrdered By: Yulia Jacob on 05-17-2024 Cholesterol in HDL [Mass/Vol] 29 mg/dL Normal 23-92 [facility] Comment on above: HDL CHOL ATP-III CLA SSIFICATION Cardiovascular RiskHDL > or equal to 60 mg/dL LOWHDL < 40 mg/dL HIGH Result Comment: HDL CHOL ATP-III CLASSIFICATION Cardiovascular Risk HDL > or equal to 60 mg/dL LOW HDL < 40 mg/dL HIGH Performed By: #### B MP, LIPID, MG #### [facility] [address] Serum or plasma total choles terol/high density lipoprotein (HDL) cholesterol mass ratOrdered By: Yulia Jacob on 05-17-2024 Cholesterol.total/Chol esterol in HDL [Mass ratio] 3.8 {ratio} Normal <5.0 [facility] Comment on above: Result Comment: PERF ORMED BY: [place] [address] PATHOLOGIST CREAM GATHERER CUCA VOGT M.D. Performed By: #### B MP, LIPID, MG #### [facility] [address] Sodium [Moles/volume] in Uri neOrdered By: Shahzad Marrufoomanoni on 05-17-2024 Sodium (U) [Moles/Vol] 109 mmol/L Normal [facility] Comment on above: No reference range e stablished Result Comment: No r eference range established PERFORMED BY: [place] [address] PATHOLOGIST CREAM GATHERER CUCA VOGT M.D. Performed By: #### U CREA, CHETAN, ADDONUAPLUS #### [facility] [address] [place] [address] Specific gravity Test strip (U) [Rel density]Ordered By: Objesyon Marrufoomar on 05-17-2024 Specific gravity (U) [Rel density] 1.022 1.001-1.03 0 [facility] Triglyceride [Mass/volume] i n Serum or PlasmaOrdered By: Yulia Jacob on 05-17-2024 Triglyceride [Mass/Vol] 106 mg/dL 0-149 [facility] Comment on above: TRIG ATP III CLASSIF ICATIONTRIG less than 150 mg/dL NormalTRIG 150-199 mg/dL Borderline highTRIG 200-500 mg/dL High TRIG greater than 500 mg/dL Very highStandard traceable to the Center for Disease Conrtrol and Prevention (CDC) test method. Troponin I High Sensitivityo n 05-17-2024 Troponin I High Sensitivity 37.7 pg/mL High 0.0-15.0 [facility] Comment on above: Order Comment: DRAW AT 0830 WITH HER OTHER LAB Result Comment: PERF ORMED BY: [place] [address] PATHOLOGIST CREAM GATHERER CUCA VOGT M.D. Performed By: #### B MP, LIPID, MG #### [facility] [address] [place], [place] [address] [facility] Troponin I High Sensitivity 37.5 pg/mL High 0.0-15.0 [facility] Comment on above: Result Comment: PERF ORMED BY: [place] [address] PATHOLOGIST CREAM GATHERER JIANLAN SUN M.D. Performed By: #### B MP, LIPID, MG #### [facility] [address] [place] [address] Troponin I High Sensitivity 36.5 pg/mL High 0.0-15.0 [facility] Comment on above: Result Comment: PERF ORMED BY: [place] [address] PATHOLOGIST CREAM GATHERER CUCA VOGT M.D. Performed By: #### H S TROP #### [address] Troponin I.cardiac [Mass/vol ume] in Serum or Plasma by Detection limit <= 0.01 ng/Ordered By: Yulia Jacob on 05-17-2024 Troponin I.cardiac DL <= 0.01 ng/mL [Mass/Vol] 37.7 pg/mL High 0.0-15.0 [facility] US renal BIon 05-17-2024 US renal BI [facility] [address] Ultrasound Report Signed Patient: Kusum Huerta MR#: [id number] 01 : 1950 Acct:[id number] Age/Sex: 74 / F ADM Date: 05/16/24 Loc: Room: [address] [place] [address] Type: ADM IN Attending Dr: Shahzad Gomez [...] Yaw Deluca M.D.05/17/2024 7:28 PM Dictation Location: [place] [address] Tech: Claudia Davies Transcribed By: CHELE 05/17/241927 Dictated By: Yaw Deluca II, MD 05/17/241926 Signed By: 05/17/241927 Normal [facility] Urine appearanceOrdered By: Shahzad Gomez on 05-17-2024 Appearance (U) Clear Normal Clear [facility] Comment on above: Order Comment: Name Collection Type:: Clean-Voided Midstream Performed By: #### U CREA, CHETAN, ADDONUAPLUS #### [address] Urobilinogen Test strip (U) [Mass/Vol]Ordered By: Shahzad Gomez on 05-17-2024 Urobilinogen (U) [Mass/Vol] Normal mg/dL Normal [facility] Venous Blood GasOrdered By: Shahzad Gomez on 05-17-2024 CO2 [Moles/Vol] 15.9 mmol/L Low 24.0-29.0 [facility] Comment on above: Performed By: #### V BG #### Point of Care testing , HCO3 (Bld) [Moles/Vol] 14.9 mmol/L Low 23.0-29.0 [facility] Comment on above: Performed By: #### V BG #### Point of Care testing , Venous Blood Gason Respiratory Critical Normal [facility] Comment on above: Result Comment: Crit ical Value called on: 05/17/2024 at 11:16 PERFORMED BY: [place] [address] PATHOLOGIST CREAM GATHERER CUCA VOGT M.D. Performed By: #### V BG #### Point of Care testing , VBG Base Excess -10.8 mmol/L Low -3.0-3.0 [facility] Comment on above: Performed By: #### V BG #### Point of Care testing , VBG Draw Site Venous Normal [facility] Comment on above: Performed By: #### V BG #### Point of Care testing , VBG Frac Inspired O2 21 % Normal [facility] Comment on above: Performed By: #### V BG #### Point of Care testing , VBG O2 Content 6.4 mmol/L Low 6.6-9.7 [facility] Comment on above: Performed By: #### V BG #### Point of Care testing , VBG Oxygen Saturation 91.2 % Off scale high 73.0-76.0 [facility] Comment on above: Performed By: #### V BG #### Point of Care testing , VBG PCO2 32.5 mm[Hg] Low 38.0-50.0 [facility] Comment on above: Performed By: #### V BG #### Point of Care testing , VBG PH Venous PH 7.28 Low 7.32-7.43 [facility] Comment on above: Performed By: #### V BG #### Point of Care testing , VBG PO2 62.5 mm[Hg] High 35.0-45.0 [facility] Comment on above: Performed By: #### V BG #### Point of Care testing , pH of Urine by Test stripOrd ered By: Shahzad Gomez on 05-17-2024 pH (U) 5.5 [pH] Normal 5.0-9.0 [facility] Comment on above: Order Comment: Name Collection Type:: Clean-Voided Midstream Performed By: #### U CHETAN OSORIO, ROBERTO CARLOSUAPLUS #### [address] Troponin I High Sensitivityo n 05-16-2024 Troponin I High Sensitivity 35.5 pg/mL High 0.0-15.0 [facility] Comment on above: Result Comment: PERF ORMED BY: [place] [address] PATHOLOGIST CREAM GATHERER CUCA VOGT M.D. Performed By: #### B MP, LIPID, MG #### [place] [id number] [facility] Activated partial thrombopla stin time (aPTT) in platelet poor plasma by coagulation aOrdered By: Mary Espana on 01-06-2024 aPTT Coag (PPP) [Time] 24.6 s 25.1-36.5 [facility] Comment on above: A hematocrit value g reater than 55% may lead to inaccurate results in coagulation testing. Patients having hematocrit values >55% require a special collection tube for coagulation studies. Please contact the laboratory at [phone] guided bone marrow bx/asp iron 01-06-2024 CT guided bone marrow bx/aspir [facility] Main [place] [address] [place], [place] [address] CT Scan Report Signed Patient: Kusum Huerta MR#: [id number] 01 : 1950 Acct:[id number] Age/Sex: 73 / F ADM Date: 01/06/24 Loc: CT Room: Type: [facility] Attending Dr: Mary Espana MD [...] Yaw Deluca M.D.01/06/2024 2:06 PM Dictation Location: [place] [address] Transcribed By: [facility] 01/06/24 140 Dictated By: Yaw Deluca II, MD 01/06/24 1401 Signed By: 01/06/24 140 Normal [facility] Coagulation Profileon 2023 aPTT Coag (Bld) [Time] 24.6 s Low 25.1-36.5 Th e [facility] Comment on above: Order Comment: STAT FOR BX Result Comment: A he matocrit value greater than 55% may lead to inaccurate results in coagulation testing. Patients having hematocrit values >55% require a special collection tube for coagulation studies. Please contact the laboratory at [phone] for redraw instructions. PERFORMED BY: [place] [address] PATHOLOGIST CREAM GATHERER CUCA VOGT M.D. Performed By: #### B MP, LIPID, MG #### [facility] [address] [place] [address] Complete Blood Count Auto Di ffon 01-06-2024 Basophils (Bld) [#/Vol] 0.0 10*3/uL Normal 0.0-0.2 [facility] Comment on above: Order Comment: STAT FOR BX Result Comment: PERF ORMED BY: [place] [address] PATHOLOGIST CREAM GATHERER CUCA VOGT M.D. Performed By: #### B MP, LIPID, MG #### [address] Basophils/100 WBC (Bld) 0.1 % Normal . [facility] Comment on above: Order Comment: STAT FOR BX Performed By: #### B MP, LIPID, MG #### [address] Eosinophils (Bld) [#/Vol] 0.0 10*3/uL Normal 0.0-0.45 [facility] Comment on above: Order Comment: STAT FOR BX Performed By: #### B MP, LIPID, MG #### [place] [address] [place] Eosinophils/100 WBC (Bld) 0.4 % Normal . [facility] Comment on above: Order Comment: STAT FOR BX Performed By: #### B MP, LIPID, MG #### [address] Erythrocyte distribution width (RBC) [Ratio] 17.3 % High 11.9-15.3 [facility] Comment on above: Order Comment: STAT FOR BX Performed By: #### B MP, LIPID, MG #### [address] Hematocrit (Bld) [Volume fraction] 33.3 % Low 34.0-46.4 [facility] Comment on above: Order Comment: STAT FOR BX Performed By: #### B MP, LIPID, MG #### [address] Hemoglobin (Bld) [Mass/Vol] 10.4 g/dL Low 11.8-15.4 [facility] Comment on above: Order Comment: STAT FOR BX Performed By: #### B MP, LIPID, MG #### [place] [address] [place] Lymphocytes (Bld) [#/Vol] 0.7 10*3/uL Low 1.00-4.8 [facility] Comment on above: Order Comment: STAT FOR BX Performed By: #### B MP, LIPID, MG #### [address] Lymphocytes/100 WBC (Bld) 10.7 % Normal . [facility] Comment on above: Order Comment: STAT FOR BX Performed By: #### B MP, LIPID, MG #### [address] MCH (RBC) [Entitic mass] 26.6 pg Normal 24.7-34.3 [facility] Comment on above: Order Comment: STAT FOR BX Performed By: #### B MP, LIPID, MG #### [address] MCV (RBC) [Entitic vol] 85.0 fL Normal 80-100 [facility] Comment on above: Order Comment: STAT FOR BX Performed By: #### B MP, LIPID, MG #### [address] Mean Corpuscular HGB Conc 31.3 g/dL Low 32.0-35.0 [facility] Comment on above: Order Comment: STAT FOR BX Performed By: #### B MP, LIPID, MG #### [address] Monocytes (Bld) [#/Vol] 0.7 10*3/uL Normal 0.0-0.8 [facility] Comment on above: Order Comment: STAT FOR BX Performed By: #### B MP, LIPID, MG #### [address] Monocytes/100 WBC (Bld) 9.4 % Normal . [facility] Comment on above: Order Comment: STAT FOR BX Performed By: #### B MP, LIPID, MG #### [address] Neutrophils (Bld) [#/Vol] 5.5 10*3/uL Normal 1.8-7.7 [facility] Comment on above: Order Comment: STAT FOR BX Performed By: #### B MP, LIPID, MG #### [address] Neutrophils/100 WBC (Bld) 79.4 % Normal . [facility] Comment on above: Order Comment: STAT FOR BX Performed By: #### B MP, LIPID, MG #### [facility] [address] NRBC% 0.1 /100{WBC} Normal 0-0.5 [facility] Comment on above: Order Comment: STAT FOR BX Performed By: #### B MP, LIPID, MG #### [facility] [address] Platelet mean volume (Bld) [Entitic vol] 7.7 fL Normal 6.3-10.7 [facility] Comment on above: Order Comment: STAT FOR BX Performed By: #### B MP, LIPID, MG #### [facility] [address] RBC (Bld) [#/Vol] 3.92 10*6/uL Normal 3.60-5.00 [facility] Comment on above: Order Comment: STAT FOR BX Performed By: #### B MP, LIPID, MG #### [facility] [address] WBC (Bld) [#/Vol] 6.9 10*3/uL Normal 3.8-11.6 The [facility] Comment on above: Order Comment: STAT FOR BX Performed By: #### B MP, LIPID, MG #### [facility] [address] INR in Platelet poor plasma by Coagulation assayOrdered By: Mary Espana on 01-06-2024 INR Coag (PPP) [Relative time] 0.9 {INR} Normal [facility] Comment on above: INR Therapeutic [...] By: #### B MP, LIPID, MG #### [facility] [address] [place] [id number] [facility] [place] 01-06-2024 L Specimen: BM Received: 01/06/24 Status: KENNEDY Castillo Num: [id number] Spec Type: Bone Marro Subm Dr: Yaw Deluca II, MD Tissues: A Bone Marrow Aspirate (Clot) (CLOT) B Bone Marrow Biopsy/Core (BONE) Procedures: Reticulum I, Peripheral Smr, PAS - LGRN/2, Iron/4, HE/4, Gross/Micro L4/2, Bm Smear/2, CD138/2, CD20, CD3, CD31, CD34/2, CD68, E CADHERIN, Decalcification, PAS - Hemat/2, Bone Marrow TP, GIEMSA STN/5 Age/ Patient Sex Location Account Attending Physician Kusum Huerta F 73/F CT [id number] Mary Espana MD SPEC NUM: [id number] RECD: 01/06/24 STATUS: KENNEDY CASTILLO NUM: [id number] HAZEL: 01/06/24 DR: Yaw Deluca II, MD ENTERED: 01/06/[address] [facility] [address]: Mary Espana MD SPEC TYPE: Bone Marro DEPT: ENTERED BY: [id number] RECV BY: [id number] ORDERED: Reticulum I, Peripheral Smr, PAS - [...] [id number] Received: 01/06/24 Status: KENNEDY Castillo Num: [id number] Spec Type: Bone Marro Subm Dr: Yaw Deluca II, MD Tissues: A Bone Marrow Aspirate (Clot) (CLOT) B Bone Marrow Biopsy/Core (BONE) Procedures: Reticulum I, Peripheral Smr, PAS - LGRN/2, Iron/4, HE/4, Gross/Micro L4/2, Bm Smear/2, CD138/2, CD20, CD3, CD31, CD34/2, CD68, E CADHERIN, Decalcification, PAS - Hemat/2, Bone Marrow TP, GIEMSA STN/ Patient: BradleyKusum [id number] (Continued) Specimen: [id number] Received: 01/06/24 (Continued) Pathological Diagnosis (Continued) Signed (signature on file) Timo Mccallum MD 01/17/241930 Specimen: [id number] Received: 01/06/24 Status: KENNEDY Castillo Num: [id number] Spec Type: Bone Marro Subm Dr: Yaw Deluca, IIMD Tissues: A Bone Marrow Aspirate (Clot) (CLOT) B Bone Marrow Biopsy/Core (BONE) Procedures: Reticulum I, Peripheral Smr, PAS - LGRN/2, Iron/4, HE/4, Gross/Micro L4/2, Bm Smear/2, CD138/2, CD20, CD3, CD31, CD34/2, CD68, E CADHERIN, Decalcification, PAS - Hemat/2, Bone Marrow TP, GIEMSA STN/5 Patient: Kusum Huerta [id number] (Continued) Specimen: [id number] Received: 01/06/24-1311 (Continued) Pathological [...] als (more content not included)... Normal [facility] Platelets [#/volume] in Bloo d by Automated countOrdered By: Mary Espana on 01-06-2024 Platelets (Bld) [#/Vol] 136 10*3/uL Low 150-450 [facility] Comment on above: Order Comment: STAT FOR BX Result Comment: PERF ORMED BY: [place] [address] PATHOLOGIST CREAM GATHERER CUCA VOGT M.D. Performed By: #### B MP, LIPID, MG #### [address] Prothrombin time (PT)Ordered By: Mary Espana on 01-06-2024 PT Coag (PPP) [Time] 10.4 s Normal 9.0-12.9 [facility] Comment on above: A hematocrit value g reater than 55% may lead to inaccurate results in coagulation testing. Patients having hematocrit values >55% require a special collection tube for coagulation studies. Please contact the laboratory at [phone] for redraw instructions. Order Comment: STAT FOR BX Result Comment: A he matocrit value greater than 55% may lead to inaccurate results in coagulation testing. Patients having hematocrit values >55% require a special collection tube for coagulation studies. Please contact the laboratory at [phone] for redraw instructions. Performed By: #### B MP, LIPID, MG #### [facility] [address] [place] [id number] [facility] Multiple labsOrdered By: Maureen Eckert on 11-23-2023 [place] Height or Weight NOT Doneon 08-20-2023 Adult depression screening assessment No [facility] [employer] 600 DO Work Phone: Fall risk assessment a) No falls within the last year [facility] [employer] 600 DO Work Phone: Office Visit (Cardiology)on 08-20-2023 Follow-up visit Diagnoses/Problems Assessed Mixed hyperlipidemia (272.2) (E78.2) Essential hypertension (401.9) (I10) Atherosclerosis of [place] coronary artery without angina pectoris (414.01) (I25.10) Status post angioplasty (V45.89) (Z98.62) Shortness of breath (786.05) (R06.02) Former smoker (V15.82) (Z87.891) Quit 1993 Orders Atherosclerosis of [place] de[place] coronary artery without angina pectoris, Status post [...] negative for complaint. Vitals Vital Signs Recorded: [id number] 11:08AM Heart Rate70, L Radial [id number], LUE, Sitting Gjohtrzne85, LUE, Sitting Height5 ft 3 in Height [...] eye . (more content not included)... Normal [facility] XR KNEE LT 4V or >on 023 [...] CHARLEY LUCAS Date: 2022-12-27 15:51 Normal [facility] XR RIBS LT PA Waqar [...] calcified granuloma in the right lung base. Barton screws noted in the right humeral head. IMPRESSION: 1. No acute rib fracture identified. 2. No acute cardiopulmonary process. Electronically authenticated by: MARLON METCALF Date: 2022-12-27 15:50 Normal [facility] Tobacco Screening.on 022 Adult depression screening assessment No [facility] 250 DO Work Phone: Fall risk assessment a) No falls within the last year [facility] 250 DO Work Phone: Tobacco use status CPHS b) No [facility] 250 DO Work Phone: COVID Quick Testingon 2020 Result Positive [employer] Other Automated blood platelet cou nt (count/volume)on 03-04-2021 Platelets (Bld) [#/Vol] 249 10*3/uL 150-450 [facility] Automated blood platelet oracio n volume measurementon 03-04-2021 Platelet mean volume (Bld) [Entitic vol] 8.2 fL 6.3-10.7 [facility] Automated erythrocyte distri bution width ratioon 03-04-2021 Erythrocyte distribution width (RBC) [Ratio] 17.4 % 11.9-15.3 [facility] Automated erythrocyte mean c orpuscular hemoglobin (mass per erythrocyte)on 03-04-2021 MCH (RBC) [Entitic mass] 27.2 pg 24.7-34.3 [facility] Automated erythrocyte mean c orpuscular hemoglobin concentration measurement (mass/volon 03-04-2021 MCHC (RBC) [Mass/Vol] 32.7 g/dL 32.0-35.0 [facility] Automated erythrocyte mean c orpuscular volumeon 03-04-2021 MCV (RBC) [Entitic vol] 83.2 fL 80-100 [facility] Blood erythrocytes automated count (number/volume)on 03-04-2021 RBC (Bld) [#/Vol] 3.83 10*6/uL 3.60-5.00 [facility] Blood hemoglobin measurement (mass/volume)on 03-04-2021 Hemoglobin (Bld) [Mass/Vol] 10.4 g/dL 11.8-15.4 [facility] Blood leukocytes automated c ount (number/volume)on 03-04-2021 WBC (Bld) [#/Vol] 9.9 10*3/uL 3.8-11.6 [facility] Body fluid albumin measureme nt (mass/volume)on 03-04-2021 Albumin (Body fld) [Mass/Vol] 3.6 g/dL 3.2-5.5 [facility] Estimated glomerular filtrat ion rate (GFR) non- Americanon 03-04-2021 GFR/1.73 sq M predicted among non-blacks MDRD (S/P/Bld) [Vol rate/Area] 27 mL/Min [facility] Hematocrit [Volume Fraction] of Blood by Automated counton 03-04-2021 Hematocrit (Bld) [Volume fraction] 31.9 % 34.0-46.4 [facility] Otheron 03-04-2021 GFR/1.73 sq M.predicted MDRD (S/P/Bld) [Vol rate/Area] 33 mL/Min [facility] Comment on above: GFR estimated refere nce range: According to KDOQI guidelines, <60 ml/min/1.73m2 is sufficient to diagnose a patient with chronic kidney disease. Pharmacy Creatinine Clearance (Chem N/A [facility] Protein [Mass/volume] in Ser um or Plasmaon 03-04-2021 Protein [Mass/Vol] 6.6 g/dL 6.1-7.9 [facility] Serum globulin measurement b y calculation (mass/volume)on 03-04-2021 Globulin (S) [Mass/Vol] 3.0 g/dL [facility] Serum or plasma alanine fleming otransferase measurement without P-5'-P (enzymatic activion 03-04-2021 ALT No additional P-5'-P [Catalytic activity/Vol] 12 U/L 10-60 [facility] Serum or plasma albumin/glob ulin mass ratioon 03-04-2021 Albumin/Globulin [Mass ratio] 1.2 {ratio} [facility] Serum or plasma alkaline greyson sphatase measurement (enzymatic activity/volume)on 03-04-2021 ALP [Catalytic activity/Vol] 155 U/L 32-92 [facility] Serum or plasma aspartate am inotransferase measurement (enzymatic activity/volume)on 03-04-2021 AST [Catalytic activity/Vol] 12 U/L 10-42 [facility] Serum or plasma calcium terence urement (mass/volume)on 03-04-2021 Calcium [Mass/Vol] 8.8 mg/dL 8.2-10.2 [facility] Serum or plasma chloride oracio surement (moles/volume)on 03-04-2021 Chloride [Moles/Vol] 104 mmol/L 95-114 [facility] Serum or plasma creatinine m easurement with calculation of estimated glomerular filtron 03-04-2021 Creatinine [Mass/Vol] 1.82 mg/dL 0.44-1.03 [facility] Serum or plasma glucose terence urement (mass/volume)on 03-04-2021 Glucose [Mass/Vol] 109 mg/dL 70-100 [facility] Comment on above: ADA recommended refe rence rangeRandom Glucose Reference Range is dependent on time and content of last meal. Glucose of more than 200 mg/dL in a nonstressed, ambulatory subject supports the diagnosis of Diabetes Mellitus. Serum or plasma potassium me asurement (moles/volume)on 03-04-2021 Potassium [Moles/Vol] 5.6 mmol/L 3.5-5.1 [facility] Serum or plasma sodium measu rement (moles/volume)on 03-04-2021 Sodium [Moles/Vol] 135 mmol/L 136-146 [facility] Serum or plasma total biliru bin measurement (mass/volume)on 03-04-2021 Bilirubin [Mass/Vol] 1.0 mg/dL 0.3-1.2 [facility] Serum or plasma total carbon dioxide measurement (moles/volume)on 03-04-2021 CO2 [Moles/Vol] 23.9 mmol/L 22.0-30.0 [facility] Serum or plasma urea nitroge n measurement (mass/volume)on 03-04-2021 Urea nitrogen [Mass/Vol] 37 mg/dL 08-15 [facility] Vital Signs Date Time Vital Sign Value Performing Clinician Facility 05-22-2024 08:00-0400 Body temperature 98.1 [degF] MD Shaikh Serna Work Phone: [facility] 05-22-2024 08:00-0400 Diastolic blood pressure 77 mm[Hg] MD Shaikh Serna Work Phone: [facility] 05-22-2024 08:00-0400 Heart rate 78 /min MD Shaikh Serna Work Phone: [facility] 05-22-2024 08:00-0400 Respiratory rate 16 /min MD Shaikh Serna Work Phone: [facility] 05-22-2024 08:00-0400 SaO2% (BldA) [Mass fraction] 95 % MD Shaikh Serna Work Phone: [facility] 05-22-2024 08:00-0400 Systolic blood pressure 148 mm[Hg] MD Shaikh Serna Work Phone: [facility] 05-21-2024 06:00-0400 Body weight 80 kg MD Shaikh Serna Work Phone: [facility] 05-20-2024 20:35-0400 Body height 160.02 cm MD Shaikh Serna Work Phone: [facility] 05-20-2024 19:30-0400 Diastolic blood pressure 70 mm[Hg] MD Shaikh Serna Work Phone: [facility] 05-20-2024 19:30-0400 Heart rate 76 /min MD Shaikh Serna Work Phone: [facility] 05-20-2024 19:30-0400 SaO2% (BldA) [Mass fraction] 95 % MD Shaikh Serna Work Phone: [facility] 05-20-2024 19:30-0400 Systolic blood pressure 150 mm[Hg] MD Shaikh Serna Work Phone: [facility] 05-20-2024 18:35-0400 Respiratory rate 20 /min MD Shaikh Serna Work Phone: [facility] 05-20-2024 16:37-0400 Body temperature 98.3 [degF] MD Shaikh Serna Work Phone: [facility] 05-20-2024 16:34-0400 Body height 160.02 cm MD Shaikh Serna Work Phone: [facility] 05-20-2024 16:34-0400 Body weight 84.1 kg MD Shaikh Serna Work Phone: [facility] 05-18-2024 11:09-0400 Diastolic blood pressure 81 mm[Hg] MD Shaikh Serna Work Phone: [facility] 05-18-2024 11:09-0400 Heart rate 70 /min MD Shaikh Serna Work Phone: [facility] 05-18-2024 11:09-0400 Respiratory rate 18 /min MD Shaikh Serna Work Phone: [facility] 05-18-2024 11:09-0400 SaO2% (BldA) [Mass fraction] 96 % MD Shaikh Serna Work Phone: [facility] 05-18-2024 11:09-0400 Systolic blood pressure 179 mm[Hg] MD Shaikh Serna Work Phone: [facility] 05-18-2024 08:00-0400 Body temperature 98.5 [degF] MD Shaikh Serna Work Phone: [facility] 05-18-2024 04:26-0400 Body weight 88.3 kg MD Shaikh Serna Work Phone: [facility] 05-16-2024 20:50-0400 Body height 157.48 cm MD Shaikh Serna Work Phone: [facility] 05-04-2024 09:36-0400 Body height 157.48 cm [facility] 05-04-2024 09:36-0400 Body mass index (BMI) [Ratio] 33.5 kg/m2 [facility] 05-04-2024 09:36-0400 Body temperature 97.5 [degF] [facility] 05-04-2024 09:36-0400 Body weight 83 kg [facility] 05-04-2024 09:36-0400 Diastolic blood pressure 85 mm[Hg] [facility] 05-04-2024 09:36-0400 Heart rate 65 /min [facility] 05-04-2024 09:36-0400 Respiratory rate 16 /min [facility] 05-04-2024 09:36-0400 SaO2% (BldA) [Mass fraction] 100 % [facility] 05-04-2024 09:36-0400 Systolic blood pressure 160 mm[Hg] [facility] 02-12-2024 18:27-0400 Body mass index (BMI) [Ratio] 33.39 kg/m2 Josr Furlong DO Work Phone: [facility] 02-12-2024 18:27-0400 Body weight 85.5 kg Josr Furlong DO Work Phone: [facility] 02-12-2024 18:27-0400 Diastolic blood pressure 78 mm[Hg] Josr Furlong DO Work Phone: [facility] [employer] [facility] 02-12-2024 18:27-0400 Heart rate 76 /min Josr Furlong DO Work Phone: [facility] 02-12-2024 18:27-0400 Systolic blood pressure 138 mm[Hg] Josr Furlong DO Work Phone: [facility] 02-09-2024 12:10-0400 Body mass index (BMI) [Ratio] 33.18 kg/m2 Josr Furlong DO Work Phone: [facility] 02-09-2024 12:10-0400 Body temperature 97.7 [degF] Josr Furlong DO Work Phone: [facility] 02-09-2024 12:10-0400 Body weight 84.96 kg Josr Furlong DO Work Phone: [facility] 02-09-2024 12:10-0400 Diastolic blood pressure 66 mm[Hg] Josr Furlong DO Work Phone: [facility] 02-09-2024 12:10-0400 Heart rate 82 /min Josr Furlong DO Work Phone: [facility] 02-09-2024 12:10-0400 Respiratory rate 18 /min Josr Furlong DO Work Phone: [facility] 02-09-2024 12:10-0400 SaO2% (BldA) [Mass fraction] 99 % Josr Furlong DO Work Phone: [facility] 02-09-2024 12:10-0400 Systolic blood pressure 117 mm[Hg] Josr Furlong DO Work Phone: [facility] 01-29-2024 17:52-0500 Body height 160 cm Josr Furlong DO Work Phone: [facility] 01-29-2024 17:52-0500 Body mass index (BMI) [Ratio] 34.56 kg/m2 Josr Furlong DO Work Phone: [facility] [employer] 01-29-2024 17:52-0500 Body temperature 98.49 [degF] Josr Furlong DO Work Phone: [facility] 01-29-2024 17:52-0500 Body weight 88.5 kg Josr Furlong DO Work Phone: [facility] 01-29-2024 17:52-0500 Diastolic blood pressure 65 mm[Hg] Josr Furlong DO Work Phone: [facility] 01-29-2024 17:52-0500 Heart rate 63 /min Josr Canary Calendarlong DO Work Phone: [facility] 01-29-2024 17:52-0500 Respiratory rate 18 /min Josr Canary Calendarlong DO Work Phone: [facility] 01-29-2024 17:52-0500 SaO2% (BldA) [Mass fraction] 98 % Josr Furlong DO Work Phone: [facility] 01-29-2024 17:52-0500 Systolic blood pressure 133 mm[Hg] Josr Furlong DO Work Phone: [facility] 01-06-2024 11:41-0500 Diastolic blood pressure 73 mm[Hg] MD Shaikh Serna Work Phone: [facility] 01-06-2024 11:41-0500 Heart rate 92 /min MD Shaikh Serna Work Phone: [facility] 01-06-2024 11:41-0500 Respiratory rate 16 /min MD Shaikh Serna Work Phone: [facility] 01-06-2024 11:41-0500 SaO2% (BldA) [Mass fraction] 97 % MD Shaikh Serna Work Phone: [facility] 01-06-2024 11:41-0500 Systolic blood pressure 152 mm[Hg] MD Shaikh Serna Work Phone: [facility] 01-06-2024 10:00-0500 Body height 157.48 cm MD Shaikh Serna Work Phone: [facility] 01-06-2024 10:00-0500 Body weight 86.18 kg MD Shaikh Serna Work Phone: [facility] 08-20-2023 11:08-0400 Body height 160.02 cm Anna Pereira Work Phone: [facility] [employer] 600 DO Work Phone: 08-20-2023 11:08-0400 Body mass index (BMI) [Ratio] Medical Reason Not Done Anna Pereira Work Phone: [facility] 600 DO Work Phone: 08-20-2023 11:08-0400 Diastolic blood pressure 52 mm[Hg] Anna Jasso Chittenden Work Phone: [facility] 600 DO Work Phone: 08-20-2023 11:08-0400 Heart rate 70 /min Anna Jasso Chittenden Work Phone: [facility] 600 DO Work Phone: 08-20-2023 11:08-0400 Systolic blood pressure 110 mm[Hg] Anna Jasso Chittenden Work Phone: [facility] 600 DO Work Phone: 04-30-2022 10:57-0400 Body height 160.02 cm Anna Jasso Chittenden Work Phone: [facility] 250 DO Work Phone: 04-30-2022 10:57-0400 Body mass index (BMI) [Ratio] 36.67 kg/m2 Anna Pereira Work Phone: [facility] 250 DO Work Phone: 04-30-2022 10:57-0400 Body surface area Derived from formula 1.96 m2 Anna Pereira Work Phone: [facility] 250 DO Work Phone: 04-30-2022 10:57-0400 Body weight 93.9 kg Anna Pereira Work Phone: [facility] 250 DO Work Phone: 04-30-2022 10:57-0400 Diastolic blood pressure 50 mm[Hg] Anna Pereira Work Phone: [facility] 250 DO Work Phone: 04-30-2022 10:57-0400 Heart rate 64 /min Anna Pereira Work Phone: [facility] 250 DO Work Phone: 04-30-2022 10:57-0400 Systolic blood pressure 120 mm[Hg] Anna Pereira Work Phone: [facility] 250 DO Work Phone: 04-16-2022 00:00-0400 60 1 Devante Ben DO Work Phone: [facility] 250 DO Work Phone: Comment on above: [id number] 10-12-2021 14:30-0500 Body height Brian Sunnyland Other [facility] [employer] Other 10-12-2021 14:30-0500 Body mass index (BMI) [Ratio] 36.61 kg/m2 Brian Silverio Other [employer] Other 10-12-2021 14:30-0500 Body temperature 98.7 [degF] Brian Sawyer Other [employer] Other 10-12-2021 14:30-0500 Body weight 99.79 kg Brian Sawyer Other [employer] Other 10-12-2021 14:30-0500 Diastolic blood pressure 58 mm[Hg] Brian Sawyer Other [employer] Other 10-12-2021 14:30-0500 SaO2% (BldA) [Mass fraction] 92 % Brian Sawyer Other [employer] Other 10-12-2021 14:30-0500 Systolic blood pressure 94 mm[Hg] Brian Sawyer Other [employer] Other Encounters Encounter Date Encounter Type Care Provider Facility Start: 05-20-2024 End: 05-22-2024 Evaluation and management of inpatient MD Shaikh Serna Work Phone: [facility] Work Phone: Start: 05-20-2024 End: 05-22-2024 observation encounter MD Shaikh Serna Work Phone: [facility] Work Phone: Start: 05-20-2024 End: 05-22-2024 ambulatory Kali Danie Facility:[facility] Start: 05-17-2024 Non-patient / Non-visit MD Kenyon Serna Work Phone: [facility] Work Phone: Start: 05-16-2024 End: 05-18-2024 Evaluation and management of inpatient MD Shaikh Serna Work Phone: [facility] Work Phone: Start: 05-04-2024 End: 05-04-2024 ambulatory [facility] Work Phone: Start: 05-04-2024 End: 05-04-2024 Patient encounter procedure [facility] Work Phone: Start: 04-25-2024 End: 04-25-2024 ambulatory TRENT RAMIREZ Not Available Start: 04-19-2024 End: 04-19-2024 ambulatory SHAIKH DAPHNE Not Available Start: 03-17-2024 End: 03-17-2024 ambulatory SHAIKH DAPHNE Not Available Start: 03-02-2024 End: 03-02-2024 ambulatory [facility] Start: 02-17-2024 End: 02-17-2024 ambulatory [...] 34.0 to 34.9 in adult; Atherosclerosis of [place] coronary artery of [place] heart without angina pectoris Start: 01-29-2024 ambulatory [...] surgery center MD Shaikh Serna Work Phone: [facility] [place] Work Phone: Start: 01-06-2024 End: 01-06-2024 ambulatory MD Shaikh Serna Work Phone: [facility] Work Phone: Start: 12-29-2023 Telephone encounter Trent Ramirez MD Work Phone: [facility] Start: 12-17-2023 End: 12-17-2023 ambulatory SHAIKH DAPHNE Not Available Start: 12-16-2023 End: 12-16-2023 ambulatory TRENT RAMIREZ Not Available Start: 12-02-2023 End: 12-02-2023 ambulatory SHAIKH DAPHNE Not Available Start: 11-25-2023 Orders Only Not In System Ref Prov [facility] Start: 11-19-2023 End: 11-24-2023 Emergency department patient visit ANNA PEREIRA [facility] Start: 11-12-2023 End: 11-12-2023 ambulatory ANTONY Edson JESÚS Not Available Start: 08-20-2023 Office outpatient vi sit 25 minutes Anna Jasso Chittenden Work Phone: [facility] 600 DO Work Phone: Start: 08-20-[address] Devante Ibarra II Facility: Start: 12-27-2022 End: 12-27-2022 ambulatory LARA EDOUARD Facility: Start: 06-17-2022 Patient encounter procedure Anna Jasso Chittenden Work Phone: [facility] 250 DO Work Phone: Start: 04-30-2022 Office outpatient vi sit 25 minutes Anna Jasso Chittenden Work Phone: [facility] 250 DO Work Phone: Start: 04-22-2022 Patient encounter procedure Devante Contreras DO Work Phone: [facility] 250 DO Work Phone: Start: 10-12-2021 End: 10-12-2021 ambulatory Brian Sawyer Other [employer] Other Start: 10-12-2021 Office outpatient vi sit 15 minutes Brian Sawyer [facility] Start: 03-04-2021 End: 03-04-2021 Patient encounter procedure Anna Chittenden -Lab [facility] Start: 07-22-2017 Ambulatory DEVANTE IBARRA Facil [id number] [...] Td Vaccines (2 - Td or Tdap) [facility] Start: 02-08-2025 Adult BMI Screening Adult BMI Screening [facility] Start: 01-28-2025 Adult BMI Screening Adult BMI Screening [facility] Start: 01-28-2025 Tobacco Screening Tobacco Screening [facility] Start: 05-22-2024 [facility] Start: 05-21-2024 [facility] Start: 05-20-2024 [facility] Start: 05-20-2024 End: 05-20-2024 [facility] Start: 05-20-2024 Hospital admission [facility] Start: 05-20-2024 Hepatic function panel [facility] Start: 05-20-2024 [facility] Start: 05-18-2024 [facility] Start: 05-17-2024 Referral to general operations agent [facility] Start: 05-16-2024 Hospital admission [facility] Start: 01-21-2024 End: 01-21-2024 Patient encounter procedure 01/21/2024 1:50 PM EST Procedure Visit [facility] [address] [facility] [address] [place] [address] Antony Grant DPM [address] [facility] [address] [place] [address] [facility] Start: 01-20-2024 End: 01-20-2024 Patient encounter procedure 01/20/2024 9:30 AM EST Office Visit [facility] [address] [place] [address] Shaikh Serna MD [address] [place] [address] [facility] Start: 01-14-2024 End: 01-14-2024 Patient encounter procedure 01/14/2024 11:00 AM EST Procedure Visit [facility] [address] [place] [id number] [facility] Start: 01-06-2024 [facility] Start: 01-06-2024 [facility] Start: 01-06-2024 Bone marrow sampling [facility] Start: 07-24-[address] [facility] Start: 07-10-2022 FUV, Provider: Devante Ibarra, Status: Pen, Time: 10:50 AM FUV, Provider: Devante Ibarra, Status: Pen, Time: 10:50 AM [facility] 250 DO Work Phone: Start: 04-30-2022 FUV, Provider: Cristal Grant, Status: Pen, Time: 10:30 AM FUV, Provider: Cristal Grant, Status: Pen, Time: 10:30 AM [facility] 250 DO Work Phone: Start: 01-15-2022 Adult BMI Screening Adult BMI Screening [facility] Start: 07-24-2018 Pneumococcal Vaccine: 65+ Years (2 - PCV) Pneumococcal Vaccine: 65+ Years (2 - PCV) [facility] Start: 2015 Fall Risk Screening Fall Risk Screening [facility] Start: 2000 Administration of varicella zoster vaccine Zoster (Shingles) Vaccine (1 of 2) [facility] Start: 04-15-1990 Screening for malignant neoplasm of breast Mammogram [facility] Start: 1968 Adult BMI Follow Up Plan Adult BMI Follow Up Plan [facility] Start: 1962 Depression Screening Depression Screening [facility] Start: 1962 Tobacco Screening Tobacco Screening [facility] Start: 1950 Medicare Annual Wellness (AWV) Medicare Annual Wellness (AWV) [facility] Start: 1950 Screening for malignant neoplasm of colon [facility] Start: 1950 Medicare Annual Wellness Visit Medicare Annual Wellness Visit [facility] Albumin/Globulin ratio [facility] Basophils [#/volume] in Blood by Automated count [facility] Basophils/100 leukoc ytes in Blood by Automated count [facility] Bilirubin.indirect [Mass/volume] in Serum or Plasma [facility] Eosinophils/100 leukocytes in Blood by Automated count [facility] Erythrocyte distribu tion width [Ratio] by Automated count [facility] Erythrocytes [#/volu me] in Blood [facility] Erythropoietin (EPO) [Units/volume] in Serum or Plasma [facility] Globulin [Mass/volum e] in Serum [facility] Hematocrit [Volume Fraction] of Blood [facility] Hemoglobin [Mass/vol ume] in Blood [facility] Leukocytes [#/volume ] corrected for nucleated erythrocytes in Blood by Automated coun [facility] Leukocytes [#/volume ] in Blood [facility] Lymphocytes [#/volum e] in Blood by Automated count [facility] Lymphocytes/100 leukocytes in Blood by Automated count [facility] MCH [Entitic mass] b y Automated count [facility] MCHC [Mass/volume] b y Automated count [facility] MCV [Entitic volume] by Automated count [facility] Monocytes [#/volume] in Blood by Automated count [facility] Monocytes/100 leukoc ytes in Blood by Automated count [facility] Neutrophils [#/volum e] in Blood by Automated count [facility] Neutrophils/100 leukocytes in Blood by Automated count [facility] Nucleated erythrocyt es [Presence] in Blood by Automated count [facility] Patient Education [facility] Work Phone: Patient referral [facility] Work Phone: Platelet mean volume [Entitic volume] in Blood by Automated count [facility] Renal function 2000 panel - Serum or Plasma [facility] US Kidney - bilateral [facility] Immunizations Immunization Date Immunization Notes Care Provider Fa abdulaziz 12-25-2021 tetanus toxoid, redu zak diphtheria toxoid, and acellular pertussis vaccine, adsorbed Anna E Chittenden Work Phone: [facility] 09-11-2020 influenza virus vacc ine, unspecified formulation Tate E Chittenden Work Phone: [facility] 250 DO Work Phone: 09-08-2020 Fluzone QIV High-Dos e 65YR+ Anna [facility] 09-08-2020 influenza virus vacc ine, unspecified formulation Not Ref Prov [employer] [facility] 10-14-2019 influenza, high dose seasonal, preservative-free Tate [facility] 07-24-2017 pneumococcal polysaccharide vaccine, 23 valent Tate E Chittenden Work Phone: [facility] 250 DO Work Phone: 08-28-2015 influenza, high dose seasonal, preservative-free Anna E Chittenden Work Phone: [facility] 250 DO Work Phone: influenza virus vacc ine, unspecified formulation Tate E Chittenden Work Phone: [facility] 250 DO Work Phone: Comment on above: Aug 20122012 Payers Date Payer Category Payer Self-pay [id number] 2023 Medicare [id number] 2023 Private Health Insurance [id number] 1959 Private Health Insurance [id number] 1950 Unknown [id number] 2.16.840.1.938190.3.579.2.1259 1950 Unknown [id number] 2.16.840.1.636910.3.579.2.1259 1950 Unknown [id number] 2.16.840.1.286935.3.579.2.1259 1950 Unknown [id number] 2.16.840.1.832940.3.579.2.1259 1950 Unknown [id number] 2.16.840.1.159106.3.579.2.125 1950 Unknown [id number] 2.16.840.1.832711.3.579.2.1258 1950 Unknown [id number] 2.16.840.1.806649.3.579.2.593 1950 Unknown [id number] 2.16.840.1.171984.3.579.2.356 1950 Unknown [id number] 2.16.840.1.233395.3.579.2.1286 1950 Unknown [id number] 2.16.840.1.461091.3.579.2.1259 1950 Unknown [id number] 2.16.840.1.795897.3.579.2.9 1950 Unknown [id number] 2.16.840.1.326398.3.579.2.1258 1950 Unknown [id number] 2.16.840.1.703973.3.579.2.125 1950 Unknown [id number] 2.16.840.1.937410.3.579.2.1244 Medicare [id number] Private Health Insurance [id number] Private Health Insurance [employer] [id number] [id number] Unknown AET[employer] Unknown [id number] 2.16.840.1.964114.3.579.2.531 Unknown [id number] 2.16.840.1.981857.3.579.2.531 Unknown [id number] 2.16.840.1.201329.3.579.2.531 Social History Date Type Detail Facility Start: 10-02-2020 End: 05-20-2024 Tobacco smoking status NHIS Ex-smoker (finding) [facility] Work Phone: Start: 1950 Sex Assigned At Female F [facility] Start: 12-18-2020 End: 01-15-2021 No illicit drug use No illicit drug use -[facility] 250 DO Work Phone: Comment on above: Quit 1993; 4 cups tea daily; Start: 12-18-2020 End: 01-15-2021 Sex Assigned At [facility] Other History of tobacco use Current smoker [facility] Start: 07-05-2018 End: 12-02-2023 Tobacco use and exposure Smokeless tobacco non-user [facility] Start: 01-15-2021 End: 01-29-2024 Alcohol intake Current non-drinker of alcohol (finding) [facility] Housing Instability Unknown [facility] Start: 1950 End: 1950 Sex Assigned At Not on file [facility] Start: 12-02-2023 Tobacco smoking stat [facility] Never smoked tobacco [facility] History of tobacco use Passive smoker [facility] Start: 12-17-2023 Alcohol intake Lifetime non-d rony (finding) [facility] Start: 11-12-2023 Alcohol Comment caffeine intak e: 1-2 cups per day (pepsi, ice tea) [facility] Medical Equipment Procedure Code Equipment Code Equipment Original Text Equipment Identifier Dates FDA Start: 10-13-2019 [id number] FDA Start: 10-13-2019 [id number] FDA Start: 10-13-2019 CL CLOSURE DEVIC E ANGIOSEAL 6F FDA Start: 10-13-2019 [id number] FDA Start: 10-13-2019 CL CLOSURE DEVIC E ANGIOSEAL 6F FDA Start: 10-13-2019 [id number] FDA Start: 10-13-2019 CL CLOSURE DEVIC E ANGIOSEAL 6F FDA Start: 10-13-2019 [id number] FDA Start: 10-13-2019 CL CLOSURE DEVIC E ANGIOSEAL 6F FDA Start: 10-13-2019 [id number] FDA Start: 10-13-2019 CL CLOSURE DEVIC E ANGIOSEAL 6F FDA Start: 10-13-2019 Goals Date Patient Goal Desired Activity /State Functional Status Date Assessment Result Facility 05-22-2024 Functional status Patient at Baseline [facility] Work Phone: 05-18-2024 Functional status Patient at Baseline [facility] Work Phone: Mental Status Date Assessment Result Facility 05-22-2024 Cognitive function Cognitive Sta tus Patient at Baseline [facility] Work Phone: 05-18-2024 Cognitive function Cognitive Sta tus Patient at Baseline [facility] Work Phone: Clinical Notes 10-12-2021 to 05-22-2024 Note Date & Type Note Facility 05-22-2024 Discharge summary Note Date/Time May 22, 2024 2:15pm [facility] [address] [place] [address] Discharge Summary Signed Patient: Kusum Huerta MR#: [id number] : 1950 Acct:[id number] Age/Sex: 74 / F Adm Date: 4 Loc: Room: [address] [place] [address]: Kali Helton MD Copies to: [...] Plan Discharge Plan Patient Disposition: Home Health [facility] Activity: No Activity Restriction Diet: Low-Sodium Additional Instructions: Home Health to manage care: - Full code - PT/OT eval and treat - Routine vital signs - Medication management and education Instructions: Know your Meds Prescriptions: New gyuzmhybyl-aqmcuepmd-fxjfzgldm 10-320-25 mg tablet 1 tab PO DAILY [...] Hold Instructions: 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 metoprolol tartrate 50 mg tablet 50 mg PO BID Changed ferrous sulfate [FeroSul] 325 mg (65 mg iron) tablet 325 mg PO Q48H 360 Days Qty: 0 0RF Discontinued cyanocobalamin (vitamin B-12) 500 mcg tablet 500 mcg PO DAILY lisinopril 40 mg tablet 40 mg PO DAILY hydrochlorothiazide 12.5 mg tablet 12.5 mg PO DAILY Hold Instructions: 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 amlodipine 5 mg tablet 10 mg PO [...] signed by Kali Helton MD> 05/22/24 1420 [facility] Work Phone: 1(502) 927-587406-29-2024 Progress note Author Kali Helton [facility] May 21, 2024 12:14pm Note Date/Time May 21, 2024 12:1 4pm [facility] [address] [place] [address] Hospitalist Progress Note Signed Patient: Kusum Huerta MR#: [id number] : 1950 Acct:[id number] Age/Sex: 74 / F Adm Date: 4 Loc: Room: [address] [place] [address] Type: ADM INOo Attending Dr: Kali Helton [...] signed by Kali Helton MD> 05/21/24 1214 [facility] Work Phone: 1(975) 772-512906-28-2024 History and physical note Author Kali Helton [facility] May 20, 2024 8:01pm Note Date/Time May 20, 2024 6:46 pm [facility] [address] [place] [address] Hospitalist H&P Signed Patient: Kusum Huerta MR#: [id number] : 1950 Acct:[id number] Age/Sex: 74 / F Adm Date: 4 Loc: Room: [address] [place] [address] Type: ADM INOo Attending Dr: Kali Helton MD Copies to: MD Shaikh Daphne Chavis MD~ HPI DATE OF EXAMINATION: 05/20/24 HISTORY OF PRESENT ILLNESS: Patient is 74-year-old female, who presents today to the emergency department complaining of chest discomfort. Patient was discharged 2 days ago, after being hospitalized through [facility] and then transferred to us, with SHANKAR, chest discomfort. She was discharged withplans for outpatient stress test. Since going home, she remains weak. She felt a bit confused, the hubfoflm-sq-xpn stated that similarly to situation in the [...] III History of C. difficile colitis Dyslipidemia [facility] Medical History COVID Skin cancer [...] Hypertension Diabetes Family/Other Legacy FamHx Problem: Sister [place] :2 sons -1 auto accident/1 pulmonary fibrosis:daughter-BERTA [...] % (Auto) 40.0 % (.) 05/20/24 17:30 Bradford % (Auto) 13.6 % (.) 05/20/24 17:30 Eos % (Auto) 0.6 % (.) 05/20/24 17:30 Baso % (Auto) 1.1 % (.) 05/20/24 17:30 Nucleat RBC Rel Count 0.1 /100 WBC (0-0.5) 05/20/24 17:30 Neut # (Auto) 1.9 x10E3/uL (1.8-7.7) 05/20/24 17:30 Lymph # (Auto) 1.7 x10E3/uL (1.00-4.8) 05/20/24 17:30 Bradford # (Auto) 0.6 x10E3/uL (0.0-0.8) 05/20/24 17:30 [...] <Electronically signed by Kali Helton MD> 05/20/242000 [facility] Work Phone: 1(291) 354-495006-26-2024 Discharge summary Author Shahzad Gomez [facility] May 18, 2024 1:44pm Note Date/Time May 18, 2024 1:22 pm [facility] [address] [place] [address] Discharge Summary Signed Patient: Kusum Huerta MR#: [id number] : 1950 Acct:[id number] Age/Sex: 74 / F Adm Date: 4 Loc: Room: [address] [place] [address]: Shahzad Gomez MD Copies to: MD Shaikh Daphne Kirkland MD~ Providers Date of Discharge: 05/18/24 Discharging Provider: Shahzad Gomez Primary Care Provider: Shaikh Daphne Consults: 05/16/24 21:14 Consult to Cardiology Routine Comment: Consulting Provider: [facility] Reason For Exam: chest pain Has Provider Been Notified: Yes Date of Notification: 05/17/24 Time of Notification: 06:38 Extended Comment: 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 Patient was admitted here for SHANKAR on CKDshe was found to have metabolic acidosis as well. She was transferred to our facility from [facility] due to elevated troponin with concerns for [...] Plan Discharge Plan Patient Disposition: Home Health [facility] Activity: No Activity Restriction Diet: Low-Fat and [...] Hold Instructions: 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 hydrochlorothiazide 12.5 mg tablet 12.5 mg PO DAILY Hold Instructions: 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 Discontinued aspirin 81 mg tablet,chewable 81 mg PO QAM buprenorphine-naloxone 8-2 mg film See Rx Instructions sublingual DAILY Rx Instructions: 1.5 film sublingually daily; Other Ambulatory Orders: Initiate Home Health (Routine) Timeframe: 1 Day Location: Determined by Patient Ordered By: Shahzad Gomez Follow Up: [facility] [Outside] (Lexiscan Stress Test- once insurance approves [...] % (Auto) 37.4, Lymph % (Auto) 42.5, Bradford % (Auto) 12.9, Eos % (Auto) 5.3, Baso % (Auto) 1.9, Nucleat RBC Rel Count 0.3, Neut # (Auto) 1.4 L, Lymph # (Auto) 1.6, Bradford # (Auto) 0.5, Eos # (Auto) 0.2, [...] signed by Shahzad Gomez MD> 05/18/24 1344 [facility] Work Phone: 1(823) 551-263906-26-2024 Progress note Author Elayne Puenteraman [facility] May 18, 2024 12:56pm Note Date/Time May 18, 2024 12:5 2pm [facility] [address] [place] [address] Nephrology Progress Note Signed Patient: Kusum Huerta MR#: [id number] : 1950 Acct:[id number] Age/Sex: 74 / F Adm Date: 4 Loc: Room: [address] [place] [address] Type: ADM IN Attending Dr: Shahzad Gomez [...] 10 Mg Tablet) 10 mg PO DAILY [facility] Stop: 05/17/25 08:59 Last Admin: 05/18/24 09:34 Dose: 10 mg Aspirin (Aspirin 81 Mg Tab.Chew) 81 mg PO QAM [facility] Stop: 05/17/25 08:59 Last Admin: 05/18/24 09:34 [...] 40 Mg Tablet) 40 mg PO DAILY [facility] Stop: 05/18/25 12:49 Metoprolol Tartrate (Metoprolol Tartrate 50 Mg Tablet) 50 mg PO BID KRYSTYNA Stop: 05/17/25 08:59 Last Admin: 05/18/24 09:34 Dose: 50 mg Nitroglycerin (Nitroglycerin 0.4 Mg Tab.Subl) 0.4 mg SUBLINGUAL Q5M PRN PRN Reason: Chest Pain Stop: 05/17/25 00:06 Pregabalin (Pregabalin 75 Mg Capsule) 75 mg PO BID [facility] Stop: 11/13/24 08:59 Last Admin: 05/18/24 09:34 [...] Yaw Deluca M.D.05/17/2024 7:28 PM Dictation Location: [place] [address] Any impression(s) listed above is documentation that [...] outpatient cardiac stress test as per the millwright helper Documented By: Elayne Stoddard MD 05/18/24 1251 Signed By: <Electronically signed by Elayne Stoddard MD> 05/18/24 1256 [facility] Work Phone: 1(216) 772-906606-25-2024 Consult note Author Elayne Stoddard [facility] May 17, 2024 2:07pm Note Date/Time May 17, 2024 2:08 pm [facility] [address] [place] [address] Nephrology Consult Note Signed Patient: Kusum Huerta MR#: [id number] : 1950 Acct:[id number] Age/Sex: 74 / F Adm Date: 4 Loc: Room: [address] [place] [address] Type: ADM IN Attending Dr: Shahzad Gomez [...] systems: 12 system review is negative today [facility] Medical History COVID Skin cancer [...] Hypertension Diabetes Family/Other Legacy FamHx Problem: Sister [place] :2 sons -1 auto accident/1 pulmonary fibrosis:daughter-BERTA [...] (Dextrose) 1,150 mls @ 75 mls/hr IV .[id number] KRYSTYNA Stop: 05/17/25 11:29 Last Admin: 05/17/24 [...] Appearance Clear Urine pH 5.5 Ur Specific [place] 1.022 Urine Protein 30 H Urine Glucose [...] <Electronically signed by Elayne Stoddard MD> 05/17/24 1406 [facility] Work Phone: 1(997) 626-238206-25-2024 Progress note Author Shahzad Gomez [facility] May 17, 2024 11:41am Note Date/Time May 17, 2024 10:5 1am [facility] [address] [place] [address] Hospitalist Progress Note Signed with Addenda Patient: Kusum Huerta MR#: [id number] : 1950 Acct:[id number] Age/Sex: 74 / F Adm Date: 4 Loc: Room: [address] [place] [address] Type: ADM IN Attending Dr: Shahzad Gomez [...] evaluated at bedside, she was transferred from [facility] to our facility for cardiology evaluation and [...] Lactated Ringers IV 05/17/24 13:34 75 mls/hr .[id number] KRYSTYNA Administration Magnesium Sulfate 2 gm in [...] <Electronically signed by Shahzad Gomez MD> 05/17/24 1055 [facility] Work Phone: 1(644) 640-257406-25-2024 Consult note Author Gabriella Contreras [facility] May 17, 2024 11:21am Note Date/Time May 17, 2024 10:0 2am [facility] [address] [place] [address] Cardiology Consult Note Signed Patient: Kusum Huerta MR#: [id number] : 1950 Acct:[id number] Age/Sex: 74 / F Adm Date: 4 Loc: Room: [address] [place] [address] Type: ADM IN Attending Dr: Shahzad Gomez MD Copies to: MD Claudia Kirkland DO, RES MD Gabriella Garcia DO~ Cardiology HPI History of Present Illness Consult Date: 05/17/24 Reason for Consult: Chest pain HPI: Ms. Huerta is a 74 year old female that was seen by request of hospitalist for chest pain. Patient seen and examined with medical file clerk Dr. Williamson, I concurwith her evaluation, exam, management and note we have evaluated and examined the patient concurrently. 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 She [...] with Dr. Ibarra. Patient was transferred from [facility] emergency room on 04/15/2024. Shereports yesterday at [...] negative unless noted below or in HPI [facility] Medical History COVID Skin cancer [...] Hypertension Diabetes Family/Other Legacy FamHx Problem: Sister [place] :2 sons -1 auto accident/1 pulmonary fibrosis:daughter-BERTA [...] Code(s): I25.10 - Atherosclerotic heart disease of yocha dehe coronary artery without angina pectoris (3) SHANKAR [...] signed by DO ELLIE Ingramanthedson Williamson> 05/17/24 110 [facility] Work Phone: 1(935) 203-901306-25-2024 History and physical note Author Isabelle Dale [facility] May 17, 2024 7:02am Note Date/Time May 16, 2024 9:19 pm [facility] [address] [place] [address] Hospitalist H&P Signed Patient: Kusum Huerta MR#: [id number] : 1950 Acct:[id number] Age/Sex: 74 / F Adm Date: 4 Loc: Room: [address] [place] [address] Type: ADM IN Attending Dr: Isabelle Dale MD Copies to: LORRIE Contreras MD Shaikh Fawwad, MD~ HPI DATE OF EXAMINATION: 05/16/24 CHIEF COMPLAINT: chest pain HISTORY OF PRESENT ILLNESS: Ms. Huerta is a 74-year-old female with a PMH of GBS currently on IVIG therapy?last dose Thursday, HTN, AR, cardiac cath with 1 stent, CKD stage III, skin cancer that presented to the [facility] emergency room for complaints of sudden onset chest pain. Patient seen and examined at bedside, currently complains of a headache that she has had since Thursday. She states she normally gets up from IVIG treatment for her GBS. States she has 3 or 4 more treatments left, started in November, was hospitalized at [facility] and diagnosed with GBS. She states that [...] to nitro at home without relief. Her wrouhwog-or-vys called EMS who also medicated her with [...] home health nurse discharged herself last Thursday. [facility] chart review, patient arrived to the [facility] emergencyroom with complaints of chest [...] the EMS prior to arrival to the [facility]. Patient was medicated with morphine, Zofran. Transferred here to [facility] under the care of the hospitalist team. Review of Systems Review of Systems Review of systems: A 10 point review of systems was obtained, negative unless noted in the HPI or below. [facility] Medical History COVID Skin cancer [...] Hypertension Diabetes Family/Other Legacy FamHx Problem: Sister [place] :2 sons -1 auto accident/1 pulmonary fibrosis:daughter-BERTA [...] signed by Isabelle Dale MD> 05/17/24 0702 [facility] Work Phone: 1(701) 765-766603-22-2024 History of Present illness Narrative* Josr Leon, - 02/12/2024 11:59 PM EDT Patient Name: Kusum Huerta Date of : 1950 Date of Service: 02/12/2024 Facility: [facility] Type of Visit: Skilled Visit Subjective Kusum Huerta is a 73 y.o. female [facility] for No chief complaint onfile. . [...] have any abdominal pain. She sees a b2b sales consultant for her anemia. She said she has [...] Thursday to get in and also her b2b sales consultant. I ordered a CBC for her to get on Thursday. She is to go to the emergency room if she has any dizziness, lightheadedness or shortness a breath or other problems. She agrees to do so. We will plan on discharge tomorrow. She has done well with therapy. ELECTRONICALLY SIGNED BY: Josr Leon DO documented in this encounterSt. [facility]03-19-[facility]24 History of Present illness Narrative* Josr Leon DO - 02/09/2024 11:59 PM EDT Patient Name: Kusum Huerta Date of : 1950 Date of Service: 02/09/2024 Facility: [facility] Type of Visit: Skilled Visit Subjective Kusum Huerta is a 73 y.o. female [facility] visit. Kusum is in [...] to 34.9 in adult 10. Atherosclerosis of yocha dehe coronary artery of yocha dehe heart without angina pectoris Recheck potassium tomorrow with CBC. Continue therapy to reach maximum improvement. Possible discharge to home this weekend. Continue other orders as directed. ELECTRONICALLY SIGNED BY: Josr Leon DO documented in this encounterSt. Rita's Hospital03-08-2024 History of Present illness Narrative* Josr Leon DO - 01/29/2024 5:52 PM EST Patient Name: uKsum Huerta Date of : 1950 Date of Service: 01/29/2024 Facility: [facility] Type of Visit: Admission H&P Subjective Kusum Huerta is a 73 y.o. female [facility] for admission H&P. Kusum presents to [facility] from [facility] where she was admitted for adult [...] neuropathy. 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) 2013 1 stent Obesity Past Surgical History: Procedure Laterality Date APPENDECTOMY CAROTID STENT r/t 1 collapsed 09/2019 CHOLECYSTECTOMY HYSTERECTOMY INJECTION MEDIAL BRANCH NERVE BLOCK: left L45 51 Left 02/25/2019 Performed by Devante Beckman MD at [facility] INJECTION MEDIAL BRANCH NERVE BLOCK: left L45 51 Left 12/31/2018 Performed by Devante Beckman MD at [facility] INJECTION MEDIAL BRANCH NERVE BLOCK: RIGHT [id number] Right 08/27/2018 Performed by Devante Beckman MD at [facility] INJECTION SI JOINT Left 08/12/2019 Performed by Devante Beckman MD at [facility] INJECTION SI JOINT Left SI Joint Left 06/15/2020 Performed by Devante Beckman MD at [facility] RADIO FREQUENCY ABLATION: left L45 51 Left 04/15/2019 Performed by Devante Beckman MD at [facility] RADIO FREQUENCY ABLATION: right L45 51rfa Right 05/02/2019 Performed by Devante Beckman MD at [facility] RIGHT L3/4, 4/5, 5/1 MBB Right 07/23/2018 Performed by Devante Beckman MD at [facility] TOTAL KNEE ARTHROPLASTY Left No family [...] kg/m Physical Exam Exam conducted with a caretaker present (granddaughter present). Constitutional: General: She is [...] be discharged home. Full code. Will follow. AMBULETTE DRIVER will see next week in my absence. ELECTRONICALLY SIGNED BY: Josr Leon DO documented in this encounterSt. Rita's Hospital02-07-2024 Telephone encounter Note* Telephone Encounter - Melissa Berger NP - 12/30/2023 1:50 PM EST I called patient and let her know Dr. Ramirez sent in another round of steroids. I left message as noanswer. [facility] Work Phone: 1(436) 251-302802-07-2024 Miscellaneous Notes* Telephone Encounter - Melissa Berger [...] rx. Please advise. documented in this encounterSt. Luke's [id number] Telephone encounter Note* Telephone Encounter - Christina Ludwig - 12/29/2023 3:01 PM EST Called patient to reschedule EMG tomorrow due to no tech in office. Patient states that she has four days left of steroid and has no more refill. Wanted to let Dr. Ramirez know and wasn't sure if she needed another rx. Please advise. [facility] [id number] NotePROCEDURE: XR HAND LT MIN 3V, XR [...] Electronically authenticated by: RODERICK ESTRELLA Date: 2022-12-27 15:58[facility]02-04-2023 NotePROCEDURE: XR HAND LT MIN 3V, XR [...] Electronically authenticated by: RODERICK ESTRELLA Date: 2022-12-27 15:58[facility] [facility]* Encounter Date Diagnosis Assessment Notes Treatment Notes Treatment Clinical Notes Sep, Contact with and (suspected) exposure to other viral communicable diseases (ICD-10 - Z20.828) Sep, COVID-19 virus infection (ICD-10 - U07.1) Today you tested positive for the COVID virus. This mean you need to follow all [facility] quarantine guidelines found at [email or web address] ov. It [...] Patient care instructions given in writting by [facility] Care At Home document. [employer] Other Evaluation note* Diagnosis Iron deficiency anemia due to chronic blood loss Iron deficiency anemia secondary to blood loss (chronic) Idiopathic progressive neuropathy documented in this encounter [facility] HealthcareEvaluation noteNo assessment information availableC[facility] Work Phone: Evaluation note* Diagnosis [...] idiopathic peripheral neuropathy [facility] Diagnosis Acute renal failure superimposed on stage 4 chronic kidney disease, unspecified acute renal failure type ([facility])- Primary Congestive heart failure, unspecified HF chronicity, unspecified heart failure type ([facility]) Rhinovirus Rhinovirus infection in conditions classified elsewhere and of unspecified site Primary hypertension Unspecified essential hypertension Anemia associated with chronic renal failure Anemia in chronic kidney disease Hyperkalemia Hyperpotassemia Muscle weakness (generalized) Other abnormalities of gait and mobility Class 1 obesity due to excess calories with serious comorbidity and body mass index (BMI) of 34.0 to 34.9 in adult Atherosclerosis of yocha dehe coronary artery of [place] dehe heart without angina pectoris documented [facility] Diagnosis Acute renal failure superimposed on stage 4 chronic kidney disease, unspecified acute renal failure type ([facility])- Primary Congestive heart failure, unspecified HF chronicity, unspecified heart failure type ([facility]) Anemia associated with chronic renal failure Anemia in chronic kidney disease Hyperkalemia Hyperpotassemia Other abnormalities of gait and mobility Muscle weakness (generalized) [facility]* Diagnosis Onset Date Resolution Status Anemia of renal disease acut e Chronic kidney disease, stage 3b acute Hypertensive nephropathy acu te [facility] Work Phone: Evaluation note* Diagnosis Onset Date [...] Ischemic cardiomyopathy acut e Metabolic acidosis acute [facility] Work Phone: Evaluation note* Diagnosis Onset Date [...] pain acute Chest pain at rest acute [facility] Work Phone: History and physical note Author Kali Helton [facility] May 20, 2024 8:01pm Note Date/Time May 20, 2024 6:46 pm [facility] [address] [place] [address] Hospitalist H&P Signed Patient: Kusum Huerta MR#: [id number] : 1950 Acct:[id number] Age/Sex: 74 / F Adm Date: 4 Loc: Room: [address] [place] [address] Type: ADM INOo Attending Dr: Kali Helton MD Copies to: MD Shaikh Daphne Chavis MD~ HPI DATE OF EXAMINATION: 05/20/24 HISTORY OF PRESENT ILLNESS: Patient is 74-year-old female, who presents today to the emergency department complaining of chest discomfort. Patient was discharged 2 days ago, after being hospitalized through [facility] and then transferred to us, with SHANKAR, chest discomfort. She was discharged withplans for outpatient stress test. Since going home, she remains weak. She felt a bit confused, the [id number] stated that similarly to situation in the [...] III History of C. difficile colitis Dyslipidemia [facility] Medical History COVID Skin cancer [...] Myocardial infarction Father Hypertension Diabetes Family/Other [facility] Problem: Sister [place] :2 sons -1 auto accident/1 pulmonary fibrosis:daughter-BERTA [...] % (Auto) 40.0 % (.) 05/20/24 17:30 Bradford % (Auto) 13.6 % (.) 05/20/24 17:30 Eos % (Auto) 0.6 % (.) 05/20/24 17:30 Baso % (Auto) 1.1 % (.) 05/20/24 17:30 Nucleat RBC Rel Count 0.1 /100 WBC (0-0.5) 05/20/24 17:30 Neut # (Auto) 1.9 x10E3/uL (1.8-7.7) 05/20/24 17:30 Lymph # (Auto) 1.7 x10E3/uL (1.00-4.8) 05/20/24 17:30 Bradford # (Auto) 0.6 x10E3/uL (0.0-0.8) 05/20/24 17:30 [...] <Electronically signed by Kali Helton MD> 05/20/242000 [facility] Work Phone: Hisaplg general Narrative - Reported* Type Description Date Medical History hypertension Medical History chronic kidney disease stage 3 Surgical History gall bladder Surgical History appendectomy Surgical History knee replacement, left Surgical History HEART CATH WITH STENT PLACEMENT X1 Hospitalization History see above Hospitalization History URINARY TRACT INFECTION 05/2020 Hospitalization History BLOOD PRESSURE ISSUES [employer] Other History of Present illness Narrative* The [...] medication regimen. She denies medication side effects. [facility] 250 DO Work Phone: History of Present [...] diet and weight loss were again advocated. -[facility] 600 DO Work Phone: Hospital Discharge instructionsAmbulatory [...] Spironolactone and hydrochlorothiazide until you see your [facility]ologistC[facility] Work Phone: Hospital Discharge instructionsAmbulatory Orders* Initiate Home Health Time Frame: 1 Day, Location: Determined By Patient Additional Instructions Home Health to manage care: - Full code - PT/OT eval and treat - Routine vital signs - Medication management and educationC[facility] Work Phone: InstructionsNot on filedocumented in this encounter [facility] SystemInstructionsNot on filedocumented in this encounter [facility] SystemInstructionsNot on filedocumented in this encounter [facility] SystemInstructionsNot on filedocumented in this encounter [facility] Summary Purpose Family History No Family [...] pain. * Patient was recently hospitalized at [facility]. The patient was seen in Cardiology consult with subsequent cardiovascular management by [facility] Hospitalization records have been reviewed. * Reason for Cardiology Consultation: ACS * Consulting Control Systems Eng: Dr. Contreras * Cardiovascular testing: cardiac cath [...] section and content) DATE CREATED AUTHOR 05/19/2018 [facility] Healthcare DATE CREATED AUTHOR AUTHOR'S ORGANIZ ATION 12/29/2022 [facility] DATE CREATED AUTHOR AUTHOR'S ORGANIZ ATION 08/28/2023 [employer] DATE CREATED AUTHOR AUTHOR'S ORGANIZ ATION 10/07/2023 [facility] DATE CREATED AUTHOR AUTHOR'S ORGANIZ ATION 11/24/2023 [facility] DATE CREATED AUTHOR AUTHOR'S ORGANIZ ATION 04/25/2024 [facility] EPIC DATE CREATED AUTHOR AUTHOR'S ORGANIZ ATION 05/19/2024 [facility] DATE CREATED AUTHOR AUTHOR'S ORGANIZ ATION 05/23/[address] [facility] REASON FOR VISIT (unrecogniz ed section and content) #13 NOT VACCINATED, NO POS C OVID EXP, COUGH, CONGESTION, FEVER Care Teams (unrecognized sec tion and content) Composing Room Machinist Apprentice Relationship Specialty Start Date End Date Anna Pereira DO [address] [place] [address] PCP - General 06/30/18 Composing Room Machinist Apprentice Relationship Specialty Start Date End Date Shaikh Serna MD [address] [facility] [place] [address] PCP - General Internal Medicine 12/17/23 Team Status: Active Member Role Status Dates Shaikh Daphne MD Primary Care Provider Active Team Status: Inactive Member Role Status Dates Mary Espana MD Attending Provider Active St art: January 06, 2024 End: January 06, 2024 Shaikh Daphne MD Primary Care Provider Active Start: January 06, 2024 End: January 06, 2024 Composing Room Machinist Apprentice Relationship Specialty Start Date End Date [place] [address] [place] [id number] PCP - General 06/30/18 Composing Room Machinist Apprentice Relationship Specialty Start Date End Date Gail Tate LouisaDO [address] [place] [address] PCP - General 06/30/18 Composing Room Machinist Apprentice Relationship Specialty Start Date End Date [place] [address] [place] [address] PCP - General 06/30/18 Team Status: Inactive [...] Active Start : May 17, 2024 Shahzad Gomez MD Other Provider Active Sta rt: May [...] BE BASED ON THE PRIMARY CLINICAL RECORDS. [facility] [employer] provides no warranty or guarantee of the accuracy or completeness of information in this document.
--- NOTE | 2024-05-24 09:51 | CT_ITS ---
[address] [address] Patient Name: BELLE JEONG MRN: [id number] date: 1950 Sex: F Assigned Patient Location: MS Current Patient Location: ICU Accession/Order Number: [id number] Exam Date: 05/24/2024 10:20 Report Date: 05/24/2024 11:36 At the request of: SHAIKH OTILIA Procedure: CT abdomen pelvis wo con EXAMINATION: CT abdomen pelvis wo con HISTORY: abdominal pain COMPARISON: CT abdomen pelvis 01/25/2024 TECHNIQUE: Axial, Coronal, and Sagittal images were obtained without and/or with IV contrast as indicated by examination type. Dose reduction techniques were achieved by using automated exposure control and/or adjustment of mA and/or kV according to patient size and/or use of iterative reconstruction technique. FINDINGS: LUNG BASES: No visible pulmonary or pleural disease. LIVER: Heterogeneous slightly hypodense poorly defined mass within inferior medial aspect of anterior right hepatic lobe, 3.7 x 3.1 x 3.5 cm. BILIARY: Cholecystectomy. PANCREAS: No lesion, fluid collection, or abnormal duct dilatation. SPLEEN: No enlargement or focal lesion. ADRENALS: No mass or enlargement. KIDNEYS: Moderate atrophy bilaterally. No mass, obstruction, or calcification. BOWEL/MESENTERY: Mild diverticulosis of distal colon without acute inflammatory changes. No visible mass, obstruction, or bowel wall thickening. AORTA/VASCULAR: Moderate atherosclerotic disease of aorta and branches. No aneurysm or dissection. RETROPERITONEUM: No mass or adenopathy. LYMPH NODES: No adenopathy. URINARY BLADDER: Mild circumferential wall thickening of bladder. Large 2.6 cm diverticulum projecting from lateral right wall. PELVIC ORGANS: Hysterectomy. ABDOMINAL WALL: No mass or hernia. BONES: Osteopenia, multilevel degenerative disc disease, stable mild anterior wedging of T11 and T12 vertebral bodies. OTHER: Negative. CT/CT abdomen pelvis wo con IMPRESSION: 1. Nonspecific 3.7 cm lesion with thin liver caudal to the oneil hepatis of uncertain etiology but suspicious for neoplasm. CT abdomen without and with IV contrast using the multiphase liver protocol is recommended for further evaluation. 2. Moderate renal atrophy bilaterally, grossly stable. No obstructive uropathy or stones. 3. Mild colonic diverticulosis. 4. New circumferential wall thickening of urinary bladder; cystitis versus muscular hypertrophy. New large diverticulum projecting from right wall of the urinary bladder. Electronically authenticated by: CHARLEY AQUINO Date: 05/24/2024 11:36
[2024-05-24] MEDS: LACTATED RINGER'S SOLUTION 1,000 ML 125 ML IV ×2 (10:08→18:58)
--- NOTE | 2024-05-24 10:20 | P.HP_ITS ---
HPI H&P: HPI History of Present Illness Chief complaint: CONFUSION, WEAKNESS, DEHYDRATION,ELEVATED TROPONIN Narrative: 74-year-old female with recent hospital admission for non-ST elevation PA was brought over to ER last evening for acute onset confusion/generalized weakness. There was no report of abdominal symptoms but on testing the patient, she reported nausea, vomiting for 2 days along with right lower quadrant abdominal pain. She reports she has been throwing up 10-12 times per day along with watery diarrhea with no blood in it for the same duration. Patient denies chest pain, shortness of breath, fever, chills but is complaining of poorly controlled back pain. She denies dysuria, hematuria. Patient's chart revealed acute kidney injury along with respiratory acidosis/hypercapnia. There was also evidence of UTI on initial workup. when I went into patient's room to e valuate her, she was drowsy but arousable and was moaning in pain. She is following commands and answering questions appropriately. Given that patient has hypercapnia/drowsiness, we will transfer her to ICU and placed BiPAP. I also ordered a CT abdomen pelvis to ascertain the cause of her GI symptoms. I added ammonia hyperammonemia as the underlying etiology for her drowsiness/sleepiness. Opioid HPI Opioid Management Most Recent Pain and Opioid Data: Last Pain Scale 5 05/24/24 08:40 Last Pain Intensity 0 01/27/24 11:51 Last Pain Assessment 05/24/24 09:39 Last ED Pain Assessment 05/24/24 02:51 Last ORT Total Score 0 05/24/24 07:56 Last ORT Risk Category Low Risk 05/24/24 07:56 Ur Phencyclidine Scrn Negative (NEGATIVE) 01/25/24 00:20 Review of Systems ROS Status of ROS 10 or more systems reviewed and unremark able except as noted in history and below [facility] Medical History (Updated 05/24/24 @ 10:47 by Shaikh Daphne MD) (HFpEF) heart failure with preserved ejection fraction ?I50.30 - Unspecified diastolic (congestive) heart failure (ICD-10) Elevated troponin ?R79.89 - Other specified abnormal findings of blood chemistry (ICD-10) Chest pain ?R07.9 - Chest pain, unspecified (ICD-10) Bilateral leg weakness ?R29.898 - Other symptoms and signs involving the musculoskeletal system (ICD-10) Dehydration ?E86.0 - Dehydration (ICD-10) Chest pain ?R07.9 - Chest pain, unspecified (ICD-10) Acute abdomen ?R10.0 - Acute abdomen (ICD-10) Adult failure to thrive ?R62.7 - Adult failure to thrive (ICD-10) Acute kidney injury superimposed on chronic kidney disease ?N17.9 - Acute kidney failure, unspecified (ICD-10) ?N18.9 - Chronic kidney disease, unspecified (ICD-10) Elevated d-dimer ?R79.89 - Other specified abnormal findings of blood chemistry (ICD-10) Chronic low back pain ?M54.50 - Low back pain, unspecified (ICD-10) ?G89.29 - Other chronic pain (ICD-10) Rhinovirus infection ?B34.8 - Other viral infections of unspecified site (ICD-10) Enterovirus infection ?B34.1 - Enterovirus infection, unspecified (ICD-10) Generalized weakness ?R53.1 - Weakness (ICD-10) Fall from chair ?W07.XXXA - Fall from chair, initial encounter (ICD-10) Lumbar degenerative disc disease ?M51.36 - Other intervertebral disc degeneration, lumbar region (ICD-10) Stage 3a chronic kidney disease (CKD) ?N18.31 - Chronic kidney disease, stage 3a (ICD-10) Opioid use disorder in remission ?F11.91 - Opioid use, unspecified, in remission (ICD-10) Acute on chronic diastolic heart failure ?I50.33 - Acute on chronic diastolic (congestive) heart failure (ICD-10) Hypoxia ?R09.02 - Hypoxemia (ICD-10) COPD (chronic obstructive pulmonary disease) ?J44.9 - Chronic obstructive pulmonary disease, unspecified (ICD-10) Iron deficiency anemia ?D50.9 - Iron deficiency anemia, unspecified (ICD-10) CAD (coronary atherosclerotic disease) ?I25.10 - Atherosclerotic heart disease of [place] coronary artery without angina pectoris (ICD-10) Hypertension ?I10 - Essential (primary) hypertension (ICD-10) Neuropathy ?G62.9 - Polyneuropathy, unspecified (ICD-10) Anemia requiring transfusions ?D64.9 - Anemia, unspecified (ICD-10) Acute on chronic congestive heart failure ?I50.9 - Heart failure, unspecified (ICD-10) CKD (chronic kidney disease) stage 3, GFR 30-59 ml/min ?N18.30 - Chronic kidney disease, stage 3 unspecified (ICD-10) Chronic respiratory failure with hypoxia ?J96.11 - Chronic respiratory failure with hypoxia (ICD-10) Melanoma ?C43.9 - Malignant melanoma of skin, unspecified (ICD-10) History of illicit drug use ?F19.91 - Other psychoactive substance use, unspecified, in remission (ICD-10) Kidney disease ?N28.9 - Disorder of kidney and ureter, unspecified (ICD-10) CHF (congestive heart failure) ?I50.9 - Heart failure, unspecified (ICD-10) Heart attack ?I21.9 - Acute myocardial infarction, unspecified (ICD-10) Anemia ?D64.9 - Anemia, unspecified (ICD-10) Anemia ?D64.9 - Anemia, unspecified (ICD-10) CHF (congestive heart failure) ?I50.9 - Heart failure, unspecified (ICD-10) Surgical History H/O: hysterectomy ?Z90.710 - Acquired absence of both cervix and uterus (ICD-10) History of cholecystectomy ?Z90.49 - Acquired absence of other specified parts of digestive tract (ICD- 10) History of total left knee replacement ?Z96.652 - Presence of left artificial knee joint (ICD-10) Hx of appendectomy ?Z90.49 - Acquired absence of other specified parts of digestive tract (ICD- 10) History of heart artery stent ?Z95.5 - Presence of coronary angioplasty implant and graft (ICD-10) Family History Father Family history of CHF (congestive heart failure) Family history of diabetes mellitus Family history of hypertension Sister Family history of myocardial infarction Family history of hypertension Mother Family history of COPD (chronic obstructive pulmonary disease) Family history of hypertension Daughter Family history of diabetes mellitus Social History Within the past year, how often did you have a drink containing alcohol: never Within the past year, how many standard drinks containing alcohol did you have on a typical day: 1 or 2 Within the past year, how often did you have six or more drinks on one occasion: never Total score: 0 Score interpretation: A score less than 3 is consistent with normal alcohol consumption. Smoking status: Former smoker Non-prescribed substance use: former substance user, amphetamines/methamphetamines and opiods/painkillers Non-prescribed substance use details: states has been clean for 6 months Previous occupational history: Retired Known occupational exposures/hazards: No Highest level of school completed/degree received: high school graduate Are you now , , , , never or living with a partner: In a typical week, how many times do you talk on the telephone with family, friends, or neighbors: 3 or more times per week How often do you get together with friends or relatives: 3 or more times per week How often do you attend yarsani or anabaptism services: never Do you belong to any clubs or organizations such as yarsani groups unions, [employer] or athletic groups, or school groups: no Total score: 1 Score interpretation: A score of less than or equal to 1 indicates the most socially isolated. Little interest or pleasure in doing things: not at all Feeling down, depressed, or hopeless: not at all Feel stressed/tense/nervous/anxious/difficulty sleeping: not at all Gender Identity: female Meds Home Medications and Allergies Home Medications ?Medication ?Instructions ?Recorded ?Confirmed ?Type metoprolol tartrate 25 mg tablet 25 mg PO Q12H 08/15/23 05/24/24 History ferrous sulfate 325 mg (65 mg 325 mg PO DAILY 30 days #30 tabs 08/18/23 05/24/24 Rx iron) tablet (Iron (ferrous sulfate)) amlodipine 5 mg tablet 5 mg PO DAILY 11/18/23 05/24/24 History albuterol sulfate 90 mcg/actuation 2 puff inhalation Q4H PRN 12/12/23 05/24/24 History aerosol inhaler shortness of breath or wheezing immune glob,gamma (IgG) 10 5 g IV Q21D 02/21/24 05/24/24 History %-gly-IgA over 50 mcg/mL injection solution (Gammagard Liquid) tizanidine 4 mg tablet 4 mg PO Q8H PRN muscle spasticity 02/21/24 05/24/24 History buprenorphine 8 mg-naloxone 2 mg 1 film sublingual .QD 02/22/24 05/24/24 History sublingual film apixaban 2.5 mg tablet (Eliquis) 2.5 mg PO BID 05/16/24 05/24/24 History furosemide 20 mg tablet 20 mg PO DAILY 05/16/24 05/24/24 History nitroglycerin 0.4 mg sublingual 0.4 mg sublingual Q5M PRN chest 05/16/24 05/24/24 History tablet pain pregabalin 75 mg capsule 75 mg PO BID 05/16/24 05/24/24 History spironolactone 25 mg tablet 25 mg PO DAILY 05/16/24 05/24/24 History valsartan 80 mg tablet 80 mg PO DAILY 05/16/24 05/24/24 History clopidogrel 75 mg tablet 75 mg PO .qd 05/24/24 05/24/24 History Allergies Allergy/AdvReac Type Severity Reaction Status Date / Time No Known Drug Allergies Allergy Verified 05/24/24 01:55 Exam Constitutional Vital Signs, click to edit/add: Last Vital Signs Temp 97.7 F 05/24/24 07:56 Pulse 76 05/24/24 09:58 Resp 18 05/24/24 07:56 BP 101/68 05/24/24 07:56 Pulse Ox 93 L 05/24/24 10:18 O2 Del Method Room Air 05/24/24 10:18 Documenting provider has reviewed patient's vital signs: yes General appearance: lethargic, ill appearing, frail appearing and appears older than stated age Orientation/consciousness: Yes confused and Yes lethargic HENGA Common normals: normocephalic and head/scalp atraumatic Respiratory Common normals: normal respiratory effort, no use of accessory muscles and clear to auscultation bilaterally Effort & inspection: able to speak in complete sentences Cardio Common normals: regular rate, regular rhythm, S1 normal heart sound and S2 normal heart sound GI Common normals: Normal to inspection, nondistended, normoactive bowel sounds present, soft to palpation and no hepatosplenomegaly Palpation: tender Details: RLQ Extremity Common normals: normal to inspection and full ROM Neuro Common normals: oriented x3 and moves all extremities Sensorium/orientation: lethargic and somnolent Speech: speech normal Gait (neuro): unable to assess gait Motor exam: no tremor noted and muscle tone normal throughout Other: No focal weakness noted but overall weak in all extremities. Results Labs Labs: Short CBC 05/24/24 Range/Units 02:53 WBC 4.1 (4.0-11.0) 10^3/uL Hgb 9.2 L (12.0-16.0) g/dL Hct 32.5 L (36.0-48.0) % Plt Count 204 (150-450) 10^3/uL BMP 05/24/24 02:53 Sodium 137 Potassium 3.9 Chloride 103 Carbon Dioxide 26.1 BUN 48.0 H Creatinine 2.80 H Glucose 130 H Calcium 8.4 L Liver Function 05/24/24 Range/Units 02:53 Total Bilirubin 0.4 (0.2-1.0) mg/dL AST 18 (15-37) U/L ALT 17 (14-59) U/L Alkaline Phosphatase 79 (46-116) U/L Albumin 2.8 L (3.4-5.0) g/dL Urine 05/24/24 Range/Units 05:15 Urine Color Yellow (YELLOW) Urine Clarity Clear (CLEAR) Urine pH 6.0 (5.0-9.0) Ur Specific [place] 1.025 (1.005-1.025) Urine Protein 30 A (NEG/TRACE) mg/dL Urine Glucose (UA) Negative (NEGATIVE) mg/dL ABG ABG results: 05/24/24 04:50 ABG pH 7.308 L ABG pCO2 45.9 H ABG pO2 58.3 L* ABG HCO3 23.0 ABG O2 Saturation 90.0 ABG Base Excess -3.3 L Assessment and Plan Assessment and Plan (1) Acute respiratory failure with hypercapnia: Assessment and Plan: Resp acidosis, hypercapnia along with somnolence/drowsiness. CXR - no evidence of PNA. Does not appear to be volume overload or in HF. Will place BIPAP, transfer to ICU for close monitoring. F/u ABG in one hour (2) Metabolic encephalopathy: Assessment and Plan: Multifactorial and sec to hypercapnia/UTI. CTH - no acute intracranial pathology. Check ammonia. Started on BIPAP, f/u ABG in one hour . Will also order MRI brain as symptoms onset was acute and given her prior hx of CAD, there is a high risk of acute CVA. (3) Acute UTI: Assessment and Plan: on Rocephin. F/u urine cx. (4) Acute kidney injury: Assessment and Plan: Baseline Cr is 1.5-1.8, Presented with Cr of 2.8. On IVF. Monitor renal function (5) Generalized weakness: Assessment and Plan: multifactorial and likely due to UTI/Hypercapnia. PT/OT eval. will likely need rehab placement (6) Abdominal pain: Assessment and Plan: Reports nausea/vomiting/diarrhea x 2 days with abdominal pain. Zofran as needed, ordered CT abd pelvis. Qualifiers: Abdominal location: right lower quadrant Qualified Code(s): R10.31 - Right lower quadrant pain (7) Nausea and vomiting in adult patient: Assessment and Plan: zofran as needed. IVF for dehydration. CT ABD/Pelvis ordered to ascertain the underlying etiology. (8) Elevated troponin: Assessment and Plan: Decreased from before. Recent hospital admission at [facility] - outpatient Lexiscan was planned. She is on ASA, plavix. C/w same. (9) CAD (coronary atherosclerotic disease): Assessment and Plan: hx of PCI, recent NSTEMI - being medically managed, currently on ASA, plavix. Qualifiers: Coronary Disease-Associated Artery/Lesion type: [place] artery [place] vs. transplanted heart: hamilton heart Associated angina: without angina Qualified Code(s): I25.10 - Atherosclerotic heart disease of [place] coronary artery without angina pectoris (10) Chronic respiratory failure with hypoxia: Assessment and Plan: On 2-3 L O2 via NC, c/w same. Due to COPD/CHF. (11) COPD (chronic obstructive pulmonary disease): Assessment and Plan: No evidence of bronchospasm, stable. Duonebs as needed. Qualifiers: COPD type: COPD with acute exacerbation Qualified Code(s): J44.1 - Chronic obstructive pulmonary disease with (acute) exacerbation (12) Chronic inflammatory demyelinating neuropathy: Assessment and Plan: Receiving IVIG for it as outpatient. (13) (HFpEF) heart failure with preserved ejection fraction: Assessment and Plan: Dehydrated. Needs IVF. Monitor volume status closely. Qualifiers: Heart failure chronicity: chronic Qualified Code(s): I50.32 - Chronic diastolic (congestive) heart failure (14) Stage 3a chronic kidney disease (CKD): Assessment and Plan: p/w SHANKAR, baseline Cr is 1.5-1.8 Monitor renal function closely. (15) Anemia: Assessment and Plan: Monitor, at baseline. No evidence of overt bleeding Qualifiers: Anemia type: due to chronic kidney disease Chronic kidney disease s tage: stage 3 (moderate) Chronic kidney disease stage 3 subtype: stage 3a (GFR 45-59) Qualified Code(s): N18.31 - Chronic kidney disease, stage 3a; D63.1 - Anemia in chronic kidney disease (16) Hypertension: Assessment and Plan: Hold valsartan/aldactone due to SHANKAR. Hold amlodipine as BP is borderline low. c/w Lopressor Qualifiers: Hypertension type: primary hypertension Qualified Code(s): I10 - Essential (primary) hypertension (17) Opioid use disorder in remission: Assessment and Plan: on Suboxone. (18) Lumbar degenerative disc disease: Assessment and Plan: Poorly controlled and uncomfortable because of it. On Suboxone. Add lidocaine patch. C/w lyrica as before. (19) Adult failure to thrive: Assessment and Plan: Continues to have frequent falls, multiple hospital admissions in past 6 months, losing weight, worsening physical health, functional status. PT/OT eval, will likely need rehab (20) Malnutrition: Assessment and Plan: Weight loss of about 10 kg in 6 months, multiple hospital admissions, chronic disease burden, poor PO intake, inadequate caloric intake. Will order nutrition consult for her. Qualifiers: Malnutrition type: protein-calorie malnutrition Protein-calorie malnutrition severity: severe Qualified Code(s): E43 - Unspecified severe protein-calorie malnutrition Plan Patient changed to inpatient status as she has multiple ongoing/high risk conditions ongoing, with poor prognosis, high risk of poor outcome including . She is anticipated to need inpatient treatment for acute resp failure with hypercapnia, work up/treat/monitor metabolic encephalopathy due to resp failure and UTI along with possibility of acute CVA for which an MRI was ordered. Her serum creatinine is almost doubled her baseline, and will need close monitoring and treatment with IVF as she has poor PO intake, and is unable to adequately replace volume loss Patient placed on BIPAP and needs to monitored closely while on BIPAP while underlying etiology is being investigated and subsequently treated. Critical care time spent over 50 minutes on patient's evaluation, assessment, treatment plan, including co ordination of care with RN, RT. Urinary Catheter Management Urinary Catheter Management Straight: Cath placed during this visit: yes Urethral indwelling: No Insertion date: 05/24/24 Insertion time: 05:15
[2024-05-24 10:28] LABS: Ammonia 15 umol/L (11-32)
--- NOTE | 2024-05-24 10:37 | CM.NOTE ---
Rounds made with Dr. Serna. Kusum with c/o of back pain, abd pain & N/V/Diarrhea recently. Delayed in responses to Dr. Serna, closing eyes and slow to speak. Dr. Serna to review chart for further for plan of care. No discharge today.
--- NOTE | 2024-05-24 11:00 | PC.NURSE ---
Daughter Estela updated on condition and plan of care...Informed pt is moving to ICU for closer monitoring. daughter verbalizes understanding
--- NOTE | 2024-05-24 12:29 | SWNOTE1 ---
Pt is on BIPAP now, SW not able to complete assessment with pt at this time.
--- NOTE | 2024-05-24 13:13 | SWNOTE1 ---
STORM spoke with pt's son over the phone. He voiced pt has declined over past several weeks. She has been weaker and less energy. He stated she just left [facility] days ago and felt she was dc too early. Had issues with her heart. He voiced she had a mini heart attack a few weeks ago. He also stated she was on Gabapentin by her PCP and concerned maybe she has Gabapentin toxicity. She also has been getting infusion for neuropathy and her last infusion last infusion last week really affected her. She has headaches and was nauseous and has not been eating. STORM advised pt's son to pass all this information on to the nurse. Pt's son is on his way now. SW did speak with him about discharge planning. He did voice that she will need rehab. Pt's son is the HCPOA. Documentation is in the chart. He does think she will want to return to [facility] in [place]. SW to check if they have openings. STORM realyed information to nurse in ICU.
[2024-05-24] MEDS: AMLODIPINE BESYLATE 5 MG TABLET PO (13:27)
[2024-05-24] MEDS: GABAPENTIN 100 MG CAPSULE PO ×2 (13:28→20:23)
--- NOTE | 2024-05-24 14:54 | SWNOTE1 ---
STORM spoke with pt, pt's son and his in room. Pt is off bipap and eating jello. Pt is agreeable to rehab and wants [facility] in [place]. STORM did ask pt about her code status and at this time she wants to remain a full code. STORM updated nursing.
--- NOTE | 2024-05-24 14:55 | SWNOTE1 ---
Referral sent to [facility]. Referral included face sheet, ED note, H&P, provider notes, case management report, wound consult, nursing notes, diagnostic imaging, med list, and PT/OT notes. Pt is a precert.
--- NOTE | 2024-05-24 15:14 | SWNOTE1 ---
Important Message from [employer] reviewed and discussed with patient. Pt. verbalized understanding and signed the form. Original given to patient and copy placed in patient?s chart. IMM was signed by son as pt was too weak and gave permission for son to sign.
[2024-05-24 15:34] LABS: ABG PCO2 37.1 mmHg (35.0-45.0); HCO3 ABG 22.5 mmol/L (22.0-26.0); PO2 ABG 73.1 mmHg (80.0-100.0)
[2024-05-24 15:35] LABS: Allen Test POSITIVE (POSITIVE); Base Excess ABG -2.5 mmol/L (-2.0-2.0); O2 Mode RA; Oxygen Saturation ABG 96.3 %; Puncture Site RR
[2024-05-24] MEDS: METOPROLOL TARTRATE 25 MG TABLET PO (20:22)
[2024-05-24] MEDS: APIXABAN 5 MG TABLET 2.5 MG PO (20:22)
[2024-05-24] MEDS: PREGABALIN 75 MG CAPSULE PO (20:23)
[2024-05-25] VITALS (62 sets, daily range): BP systolic 104–165; BP diastolic 56–80; PULSE 57–93; TEMP 36.5–37.3; O2SAT 88–97
[2024-05-25 04:35] LABS: Basophils Absolute Auto 0.1 10^3/uL (0.0-0.1); Basophils Percent Auto 1.2 % (0.2-2.0); Eosinophils Absolute Auto 0.1 10^3/uL (0.0-0.7); Hematocrit 32.5 % (36.0-48.0); Hemoglobin 9.4 g/dL (12.0-16.0); Immature Granulocytes Abs Auto 0.01 10^3/uL (0.00-0.03); Immature Granulocytes Pct Auto 0.2 % (0.0-0.5); Lymphocytes Absolute Auto 1.4 10^3/uL (1.2-3.8); Lymphocytes Percent Auto 31.3 % (20.5-60.0); Mean Corpuscular HGB Conc 28.9 g/dL (29.9-35.2); Mean Corpuscular Volume 89.8 fL (81.0-99.0); Mean Platelet Volume 11.1 fL (9.5-13.5); Monocytes Absolute Auto 0.6 10^3/uL (0.3-0.8); Monocytes Percent Auto 13.7 % (1.7-12.0); Neutrophils Absolute Auto 2.2 10^3/uL (1.4-6.5); Neutrophils Percent Auto 50.6 % (43.0-75.0); Platelet Count 204 10^3/uL (150-450); Red Blood Count 3.62 10^6/uL (4.20-5.40); Red Cell Distribution Width 18.1 % (11.0-15.0); White Blood Count 4.3 10^3/uL (4.0-11.0)
[2024-05-25 04:53] LABS: Alanine Aminotransferase 13 U/L (14-59); Albumin Globulin Ratio 0.7; Albumin Level 2.8 g/dL (3.4-5.0); Alkaline Phosphatase 80 U/L (46-116); Anion Gap 14.5; Aspartate Amino Transferase 17 U/L (15-37); BUN Creatinine Ratio 22.4; Bilirubin Total 0.6 mg/dL (0.2-1.0); Calcium 8.8 mg/dL (8.5-10.1); Chloride 107 mmol/L (98-107); Estimated GFR (African America 42 (>=60); Estimated GFR (Non-African Ame 35 (>=60); Glucose 97 mg/dL (74-106); Potassium 4.5 mmol/L (3.5-5.1); Sodium 139 mmol/L (136-145); Total Protein 6.8 g/dL (6.4-8.2)
[2024-05-25] MEDS: ACETAMINOPHEN 325 MG TABLET 650 MG PO (05:43)
[2024-05-25] MEDS: GABAPENTIN 100 MG CAPSULE PO ×2 (05:43→14:03)
[2024-05-25] MEDS: METOPROLOL TARTRATE 25 MG TABLET PO ×2 (05:43→21:43)
[2024-05-25] MEDS: BUPRENORPHINE HCL/NALOXONE HCL 8-2 MG TABLET SUBL 1.5 TAB SL (08:47)
[2024-05-25] MEDS: APIXABAN 5 MG TABLET 2.5 MG PO ×2 (08:49→21:43)
[2024-05-25] MEDS: PREGABALIN 75 MG CAPSULE PO ×2 (08:50→21:43)
[2024-05-25] MEDS: AMLODIPINE BESYLATE 5 MG TABLET PO (08:50)
[2024-05-25] MEDS: CLOPIDOGREL BISULFATE 75 MG TABLET PO (08:50)
[2024-05-25] MEDS: FERROUS SULFATE 325 MG TABLET PO (08:50)
--- NOTE | 2024-05-25 09:07 | SWNOTE1 ---
Precert was started this morning for pt to go to [facility].
--- NOTE | 2024-05-25 10:48 | MR_ITS ---
The [address] [address] Patient Name: BELLE JEONG MRN: [facility]:[id number] date: 1950 Sex: F Assigned Patient Location: ICU Current Patient Location: ICU Accession/Order Number: [id number] Exam Date: 05/25/2024 11:00 Report Date: 05/25/2024 13:21 At the request of: SHAIKH OTILIA Procedure: MR head/brain wo con EXAMINATION: MR head/brain wo con HISTORY: Stroke. , Confusion, weakness COMPARISON: No relevant comparison available. TECHNIQUE: A variety of imaging planes and parameters were utilized for visualization of suspected pathology. Images were performed without contrast. FINDINGS: CEREBRUM: No acute infarction. CEREBELLUM: No acute infarction. BRAINSTEM: No acute infarction. CSF SPACES: Appropriate for age. SKULL: Could not evaluate. SINUSES: Could not evaluate. ORBITS: Could not evaluate. OTHER: Negative. MR/MR head/brain wo con IMPRESSION: 1. Limited examination. Patient could not tolerate imaging. 2. Diffusion-weighted images were obtained which allows for exclusion of acute ischemia. Electronically authenticated by: CHARLEY AQUINO Date: 05/25/2024 13:21
--- NOTE | 2024-05-25 10:55 | US_ITS ---
The [address] [address] Patient Name: BELLE JEONG MRN: [id number] date: 1950 Sex: F Assigned Patient Location: ICU Current Patient Location: ICU Accession/Order Number: [id number] Exam Date: 05/25/2024 10:56 Report Date: 05/25/2024 13:25 At the request of: SHAIKH OTILIA Procedure: US right upper quadrant EXAMINATION: US right upper quadrant HISTORY: gallbladder/liver ; abnormal CAT scan COMPARISON: CT abdomen pelvis 05/24/2024 TECHNIQUE: Transabdominal evaluation of the right upper quadrant. FINDINGS: LIVER: Near the oneil hepatis and corresponding to findings on recent CT study is a geographic shaped hyperechoic area 3.8 x 3.8 x 3.3 cm. No appreciable internal blood flow on color Doppler. PORTAL VEIN: Duplex Doppler demonstrates normal hepatopetal flow pattern with flow velocity averaging 27 cm/s. GALLBLADDER: Cholecystectomy. BILIARY: No abnormal dilation or stones. Common bile duct diameter is within normal limits. PANCREAS: No visible mass, abnormal atrophy, or duct dilation. KIDNEY: No hydronephrosis. Marked atrophy. No visible mass or stones. Size: 8.4 x 4.2 x 5.0 cm. US/US right upper quadrant IMPRESSION: 1. Nonspecific lesion within liver which corresponds to recent CTs findings. This does not represent a simple cysts. Hemangioma is possible, but appearance is concerning for malignancy. CT abdomen with IV contrast using multiphasic liver protocol is recommended or MRI of liver for further evaluation. Electronically authenticated by: CHARLEY AQUINO Date: 05/25/2024 13:25
--- NOTE | 2024-05-25 10:55 | PM.IMPN1 ---
Progress Note: A&P Assessment and Plan (1) Acute respiratory failure with hypercapnia: Assessment and Plan: resolved with BIPAP use. Doing well. (2) Metabolic encephalopathy: Assessment and Plan: Multifactorial, secondary to UTI and hypercapnia. Back to her baseline. (3) Acute UTI: Assessment and Plan: On IV Rocephin. Follow-up urine culture. (4) Acute kidney injury: Assessment and Plan: Serum creatinine is more or less back to her baseline. Likely secondary to dehydration and hypovolemia. Stop IV fluids. (5) Generalized weakness: Assessment and Plan: Improved compared to yesterday but still quite weak with physical deconditioning from ongoing chronic disease burden along with repeated hospital admissions. Physical therapy/outpatient evaluation. (6) Abdominal pain: Assessment and Plan: Resolved. CT abdomen pelvis did not show any acute intra-abdominal pathology except for new liver lesion that is discussed separately Qualifiers: Abdominal location: right lower quadrant Qualified Code(s): R10.31 - Right lower quadrant pain (7) Lesion of liver: Assessment and Plan: Suspicious Liver lesion noted on CT abdomen pelvis. Oncology recommended ultrasound of liver along with AFP, CEA, CA 19?9. Will follow-up as outpatient. (8) Nausea and vomiting in adult patient: Assessment and Plan: Resolved. Tolerating p.o. diet. (9) Elevated troponin: Assessment and Plan: Trending down. No active cardiac ischemia. Outpatient follow-up (10) CAD (coronary atherosclerotic disease): Assessment and Plan: Recent NSTEMI, on appropriate cardiac medications. No active signs or symptoms concerning for cardiac ischemia. Outpatient follow-up. Qualifiers: Coronary Disease-Associated Artery/Lesion type: [place] artery [place] vs. transplanted heart: [place] heart Associated angina: without angina Qualified Code(s): I25.10 - Atherosclerotic heart disease of [place] coronary artery without angina pectoris (11) Chronic respiratory failure with hypoxia: Assessment and Plan: At baseline. Monitor. No respiratory complaints. (12) COPD (chronic obstructive pulmonary disease): Assessment and Plan: Stable with no evidence of bronchospasm or wheezing. Continue with home medications. Qualifiers: COPD type: COPD with acute exacerbation Qualified Code(s): J44.1 - Chronic obstructive pulmonary disease with (acute) exacerbation (13) Chronic inflammatory demyelinating neuropathy: Assessment and Plan: On IVIG as outpatient. Monitor. Follow-up with neurology as outpatient (14) (HFpEF) heart failure with preserved ejection fraction: Assessment and Plan: Euvolemic now. Stopped IV fluids. Monitor. Qualifiers: Heart failure chronicity: chronic Qualified Code(s): I50.32 - Chronic diastolic (congestive) heart failure (15) Stage 3a chronic kidney disease (CKD): Assessment and Plan: Renal function back to his baseline. Monitor serum creatinine. (16) Anemia: Assessment and Plan: Unchanged, at baseline. Monitor. Qualifiers: Anemia type: due to chronic kidney disease Chronic kidney disease stage: stage 3 (moderate) Chronic kidney disease stage 3 subtype: stage 3a (GFR 45-59) Qualified Code(s): N18.31 - Chronic kidney disease, stage 3a; D63.1 - Anemia in chronic kidney disease (17) Hypertension: Assessment and Plan: Patient currently on Lopressor and amlodipine. Hold Aldactone And valsartan for now as just recovered from an SHANKAR Qualifiers: Hypertension type: primary hypertension Qualified Code(s): I10 - Essential (primary) hypertension (18) Opioid use disorder in remission: Assessment and Plan: On Suboxone.. (19) Lumbar degenerative disc disease: Assessment and Plan: Avoid sedative/hypnotics as she has recovered from hypercapnic respiratory failure. Currently on gabapentin. Continue with same. (20) Adult failure to thrive: Assessment and Plan: Multiple chronic medical conditions with repeated hospital admissions and ER visit, physical deconditioning, weight loss.Will discuss goals of care with family and patient once more medically stable (21) Malnutrition: Assessment and Plan: Severe malnutrition with weight loss, poor oral intake, chronic disease burden with multiple other hospital admissions and ER visit. Qualifiers: Malnutrition type: protein-calorie malnutrition Protein-calorie malnutrition severity: severe Qualified Code(s): E43 - Unspecified severe protein-calorie malnutrition Internal Medicine - PN: Subj Subjective Interval history: Seen and examined. Doing well. No overnight events. Awake and alert, back to her baseline neurological status. Exam Constitutional Vital Signs, click to edit/add: Last Vital Signs Temp 99.2 F 05/25/24 02:40 Pulse 75 05/25/24 08:00 Resp 18 05/25/24 08:00 BP 165/80 H 05/25/24 02:40 Pulse Ox 91 L 05/25/24 08:00 O2 Del Method Room Air 05/25/24 03:53 FiO2 21 05/24/24 11:32 Documenting provider has reviewed patient's vital signs: yes General appearance: ill appearing, frail appearing and appears older than stated age HENMT Common normals: normocephalic and head/scalp atraumatic Respiratory Common normals: normal respiratory effort, no use of accessory muscles and clear to auscultation bilaterally Effort & inspection: able to speak in complete sentences Cardio Common normals: regular rate, regular rhythm, S1 normal heart sound and S2 normal heart sound GI Common normals: Normal to inspection, nondistended, normoactive bowel sounds present, soft to palpation and no hepatosplenomegaly Extremity Common normals: normal to inspection and full ROM Neuro Common normals: oriented x3 and moves all extremities Speech: speech normal Motor exam: no tremor noted and muscle tone normal throughout Other: No focal weakness noted but overall weak in all extremities. Psych Common normals: mental status grossly normal, thought process normal, denies homicidal ideation and denies suicidal ideation Internal Medicine - PN: Obj Da Labs Labs: Laboratory Results - last 24 hr 05/24/24 05/25/24 15:21 03:47 WBC 4.3 RBC 3.62 L Hgb 9.4 L Hct 32.5 L MCV 89.8 MCH 26.0 L MCHC 28.9 L RDW 18.1 H Plt Count 204 MPV 11.1 Neut % (Auto) 50.6 Lymph % (Auto) 31.3 [place] % (Auto) 13.7 H Eos % (Auto) 3.0 Baso % (Auto) 1.2 Neut # (Auto) 2.2 Lymph # (Auto) 1.4 [place] # (Auto) 0.6 Eos # (Auto) 0.1 Baso # (Auto) 0.1 Abs Immat Gran (auto) 0.01 Imm/Tot Granulo (auto) 0.2 Puncture Site Rr ABG pH 7.390 ABG pCO2 37.1 ABG pO2 73.1 L ABG HCO3 22.5 ABG O2 Saturation 96.3 ABG Base Excess -2.5 L Rick Test Positive Sodium 139 Potassium 4.5 Chloride 107 Carbon Dioxide 22.0 Anion Gap 14.5 BUN 33.0 H Creatinine 1.47 H Est GFR ( Amer) 42 L Est GFR (Non-Af Amer) 35 L BUN/Creatinine Ratio 22.4 Glucose 97 Calcium 8.8 Total Bilirubin 0.6 AST 17 ALT 13 L Alkaline Phosphatase 80 Total Protein 6.8 Albumin 2.8 L Globulin 4.0 Albumin/Globulin Ratio 0.7 Urinary Catheter Management Urinary Catheter Management Straight: Cath placed during this visit: yes Urethral indwelling: No Insertion date: 05/24/24 Insertion time: 05:15
--- NOTE | 2024-05-25 11:00 | REH.PTDLY ---
Physical Therapy Daily Note PT Daily Note/Assess Start: 05/24/24 11:25 Freq: Status: Active Protocol: Document 05/25/24 10:54 GARRET (Rec: 05/25/24 11:00 GARRET [id number]) Physical Therapy Daily Note/Assessment Time In 09:39 Time Out 10:05 Subjective Pt agreeable to therapy. Nurse in room, states she has been having a lot of back pain. Hasn't moved around a lot. Therapeutic Exercise Minutes (minutes) 8 Therapeutic Exercise Units 1 Therapeutic Exercise Treatment Began with supine exs 10x ea with B LE for improved strength/mobility AA for greater ROM. Seated LAQ 10x ea . Therapeutic Activity Minutes (minutes) 16 Therapeutic Activity Units 1 Bed Mobility Ability Minimum Assist Therapeutic Activity Comments Assisted with rolling side to side for nursing to perform selfcare, Pt Mod A x2 with rolling and maintaining in sidelying. Cues for pt to roll onto side prior to sitting up , Min A with supine to sit transfer. Sitting bedside cues for seated balance 3 mins, pt tends to lean retro at times, but able to correct with verbal cues. Sit to stand transfers 2x with Min A. Stood for 1 min ea time. Cues with stand pivot transfer to chair Min A x1 and CGA x1. Total Therapy Minutes 24 Total Physical Therapy Units 2 Daily Note Summary Pt much improved with therapy today and pain levels with movement, able to perform all transfers with Min A x1. Pt would benefit from rehab to become stronger and reduce need of assistance.
--- NOTE | 2024-05-25 11:26 | CM.NOTE ---
Rounds made with Dr. Serna. Dr. Serna discussed need for MRI w Kusum. Dr Serna discussed plan for SNF at discharge. Kusum verbalized understanding. No discharge today, possible discharge tomorrow.
--- NOTE | 2024-05-25 12:00 | SWNOTE1 ---
SW sent upates to Marjan at [facility]. SW sent physician note, PT/OT, labs, vitals, and med list from today.
[2024-05-25] MEDS: CEFTRIAXONE 1,000 MG in 0.9 % SODIUM CHLORIDE 50 ML 100 MG IV (13:13)
--- NOTE | 2024-05-25 13:54 | SWNOTE1 ---
SW spoke to Marjan in admissions and she has not heard on precert. If they do not hear today, it will likely not be until Thursday due to the 4th being tomorrow.
--- NOTE | 2024-05-25 16:16 | SWNOTE1 ---
No approval at this time for SNF. Pt will likely be here until Thursday due to insurance being closed for 26 of May as well as nobody in for admissions at [facility].
--- NOTE | 2024-05-25 21:34 | PC.NURSE ---
Pt on and off bedpan but did have a wet brief prior to getting on the bedpan. barrier cream applied to buttocks (small open area noted on lt coccyx) Clean brief applied and clean pad placed.
[2024-05-26] VITALS (19 sets, daily range): BP systolic 127–154; BP diastolic 72–78; PULSE 63–93; TEMP 36.4–37.2; O2SAT 90–94
[2024-05-26] MEDS: METOPROLOL TARTRATE 25 MG TABLET PO ×2 (06:00→20:25)
[2024-05-26 06:27] LABS: Basophils Absolute Auto 0.1 10^3/uL (0.0-0.1); Basophils Percent Auto 1.5 % (0.2-2.0); Eosinophils Absolute Auto 0.3 10^3/uL (0.0-0.7); Eosinophils Percent Auto 6.7 % (0.9-7.0); Hemoglobin 9.5 g/dL (12.0-16.0); Immature Granulocytes Abs Auto 0.02 10^3/uL (0.00-0.03); Immature Granulocytes Pct Auto 0.4 % (0.0-0.5); Lymphocytes Absolute Auto 1.7 10^3/uL (1.2-3.8); Mean Corpuscular HGB Conc 29.7 g/dL (29.9-35.2); Mean Corpuscular Hemoglobin 26.5 pg (26.7-34.0); Mean Corpuscular Volume 89.4 fL (81.0-99.0); Mean Platelet Volume 10.6 fL (9.5-13.5); Monocytes Absolute Auto 0.8 10^3/uL (0.3-0.8); Monocytes Percent Auto 17.2 % (1.7-12.0); Neutrophils Absolute Auto 1.9 10^3/uL (1.4-6.5); Neutrophils Percent Auto 39.2 % (43.0-75.0); Platelet Count 187 10^3/uL (150-450); Red Blood Count 3.58 10^6/uL (4.20-5.40); Red Cell Distribution Width 17.9 % (11.0-15.0); White Blood Count 4.8 10^3/uL (4.0-11.0)
[2024-05-26 06:46] LABS: Alanine Aminotransferase 13 U/L (14-59); Albumin Globulin Ratio 0.7; Albumin Level 2.8 g/dL (3.4-5.0); Alkaline Phosphatase 75 U/L (46-116); Anion Gap 13.1; Aspartate Amino Transferase 19 U/L (15-37); BUN Creatinine Ratio 20.2; Bilirubin Total 0.5 mg/dL (0.2-1.0); Calcium 8.5 mg/dL (8.5-10.1); Carbon Dioxide 24.8 mmol/L (21.0-32.0); Chloride 105 mmol/L (98-107); Estimated GFR (African America 54 (>=60); Estimated GFR (Non-African Ame 44 (>=60); Globulin 3.9 g/dL; Glucose 95 mg/dL (74-106); Potassium 4.9 mmol/L (3.5-5.1); Sodium 138 mmol/L (136-145); Total Protein 6.7 g/dL (6.4-8.2)
[2024-05-26 08:12] LABS: AFP, Serum, Tumor Marker 2.3 ng/mL (0.0-9.2); CA 19-9 16 U/mL (0-35); CEA 3.3 ng/mL (0.0-4.7)
[2024-05-26] MEDS: PREGABALIN 75 MG CAPSULE PO ×2 (09:20→20:24)
[2024-05-26] MEDS: BUPRENORPHINE HCL/NALOXONE HCL 8-2 MG TABLET SUBL 1.5 TAB SL (09:20)
[2024-05-26] MEDS: CLOPIDOGREL BISULFATE 75 MG TABLET PO (09:21)
[2024-05-26] MEDS: FERROUS SULFATE 325 MG TABLET PO (09:21)
[2024-05-26] MEDS: APIXABAN 5 MG TABLET 2.5 MG PO ×2 (09:21→20:24)
[2024-05-26] MEDS: AMLODIPINE BESYLATE 5 MG TABLET PO (09:22)
--- NOTE | 2024-05-26 09:59 | P.IMPN_ITS ---
Progress Note: A&P Assessment and Plan (1) Acute respiratory failure with hypercapnia: Assessment and Plan: resolved with BIPAP use. Doing well. (2) Metabolic encephalopathy: Assessment and Plan: Multifactorial, secondary to UTI and hypercapnia. Back to her baseline. (3) Acute UTI: Assessment and Plan: On IV Rocephin. Follow-up urine culture. (4) Acute kidney injury: Assessment and Plan: Serum creatinine is more or less back to her baseline. Likely secondary to dehydration and hypovolemia. (5) Generalized weakness: Assessment and Plan: Improved compared to yesterday but still quite weak with physical deconditioning from ongoing chronic disease burden along with repeated hospital admissions. Physical therapy/outpatient evaluation - will need rehab (6) Abdominal pain: Assessment and Plan: Resolved. CT abdomen pelvis did not show any acute intra-abdominal pathology except for new liver lesion that is suspicions for neoplasm Qualifiers: Abdominal location: right lower quadrant Qualified Code(s): R10.31 - Right lower quadrant pain (7) Lesion of liver: Assessment and Plan: Suspicious Liver lesion noted on CT abdomen pelvis. US showes suspicion liver lesion of unclear etiology, outpaitnet f/u (8) Nausea and vomiting in adult patient: Assessment and Plan: Resolved. Tolerating p.o. diet. (9) Elevated troponin: Assessment and Plan: No chest pain. No active cardiac ischemia. Outpatient follow-up (10) CAD (coronary atherosclerotic disease): Assessment and Plan: Recent NSTEMI, on appropriate cardiac medications. No active signs or symptoms concerning for cardiac ischemia. Outpatient follow-up. Qualifiers: Coronary Disease-Associated Artery/Lesion type: [place] artery [place] vs. transplanted heart: [place] heart Associated angina: without angina Qualified Code(s): I25.10 - Atherosclerotic heart disease of [place] coronary artery without angina pectoris (11) Chronic respiratory failure with hypoxia: Assessment and Plan: At baseline. Monitor. No respiratory complaints. (12) COPD (chronic obstructive pulmonary disease): Assessment and Plan: Stable with no evidence of bronchospasm or wheezing. Continue with home medications. Qualifiers: COPD type: COPD with acute exacerbation Qualified Code(s): J44.1 - Chronic obstructive pulmonary disease with (acute) exacerbation (13) Chronic inflammatory demyelinating neuropathy: Assessment and Plan: On IVIG as outpatient. Monitor. Follow-up with neurology as outpatient (14) (HFpEF) heart failure with preserved ejection fraction: Assessment and Plan: Euvolemic now. Stopped IV fluids. Monitor. Qualifiers: Heart failure chronicity: chronic Qualified Code(s): I50.32 - Chronic diastolic (congestive) heart failure (15) Stage 3a chronic kidney disease (CKD): Assessment and Plan: Renal function back to his baseline. Monitor serum creatinine. (16) Anemia: Assessment and Plan: Unchanged, at baseline. Monitor. Qualifiers: Anemia type: due to chronic kidney disease Chronic kidney disease stage: stage 3 (moderate) Chronic kidney disease stage 3 subtype: stage 3a (GFR 45-59) Qualified Code(s): N18.31 - Chronic kidney disease, stage 3a; D63.1 - Anemia in chronic kidney disease (17) Hypertension: Assessment and Plan: Patient currently on Lopressor and amlodipine. resume aldactone/valsartan, BP above goal Qualifiers: Hypertension type: primary hypertension Qualified Code(s): I10 - Essential (primary) hypertension (18) Opioid use disorder in remission: Assessment and Plan: On Suboxone.. (19) Lumbar degenerative disc disease: Assessment and Plan: Avoid sedative/hypnotics as she has recovered from hypercapnic respiratory failure. Currently on gabapentin. Continue with same. (20) Adult failure to thrive: Assessment and Plan: Multiple chronic medical conditions with repeated hospital admissions and ER visit, physical deconditioning, weight loss.Will discuss goals of care with family and patient once more medically stable (21) Malnutrition: Assessment and Plan: Severe malnutrition with weight loss, poor oral intake, chronic disease burden with multiple other hospital admissions and ER visit. Qualifiers: Malnutrition type: protein-calorie malnutrition Protein-calorie malnutrition severity: severe Qualified Code(s): E43 - Unspecified severe protein-calorie malnutrition Internal Medicine - PN: Subj Subjective Interval history: Seen and examined. Doing well. No overnight events. No active complaints to offer. Exam Constitutional Vital Signs, click to edit/add: Last Vital Signs Temp 97.5 F L 05/26/24 08:32 Pulse 76 05/26/24 08:32 Resp 16 05/26/24 08:32 BP 144/76 H 05/26/24 08:32 Pulse Ox 94 L 05/26/24 08:32 O2 Del Method Room Air 05/26/24 08:32 FiO2 21 05/24/24 11:32 Documenting provider has reviewed patient's vital signs: yes General appearance: frail appearing and appears older than stated age HENMT Common normals: normocephalic and head/scalp atraumatic Respiratory Common normals: normal respiratory effort, no use of accessory muscles and clear to auscultation bilaterally Effort & inspection: able to speak in complete sentences Cardio Common normals: regular rate, regular rhythm, S1 normal heart sound and S2 normal heart sound Neuro Common normals: oriented x3 and moves all extremities Speech: speech normal Motor exam: no tremor noted and muscle tone normal throughout Other: No focal weakness noted but overall weak in all extremities. Psych Common normals: mental status grossly normal, thought process normal, denies homicidal ideation and denies suicidal ideation Internal Medicine - PN: Obj Da Labs Labs: Laboratory Results - last 24 hr 05/25/24 05/26/24 11:13 05:52 WBC 4.8 RBC 3.58 L Hgb 9.5 L Hct 32.0 L MCV 89.4 MCH 26.5 L MCHC 29.7 L RDW 17.9 H Plt Count 187 MPV 10.6 Neut % (Auto) 39.2 L Lymph % (Auto) 35.0 [place] % (Auto) 17.2 H Eos % (Auto) 6.7 Baso % (Auto) 1.5 Neut # (Auto) 1.9 Lymph # (Auto) 1.7 [place] # (Auto) 0.8 Eos # (Auto) 0.3 Baso # (Auto) 0.1 Abs Immat Gran (auto) 0.02 Imm/Tot Granulo (auto) 0.4 Sodium 138 Potassium 4.9 Chloride 105 Carbon Dioxide 24.8 Anion Gap 13.1 BUN 24.0 H Creatinine 1.19 H Est GFR ( Amer) 54 L Est GFR (Non-Af Amer) 44 L BUN/Creatinine Ratio 20.2 Glucose 95 Calcium 8.5 Total Bilirubin 0.5 AST 19 ALT 13 L Alkaline Phosphatase 75 Total Protein 6.7 Albumin 2.8 L Globulin 3.9 Albumin/Globulin Ratio 0.7 Tumor Marker AFP 2.3 Carcinoembryonic Ag 3.3 CA 19-9 Antigen 16 Urinary Catheter Management Urinary Catheter Management Straight: Cath placed during this visit: yes Urethral indwelling: No Insertion date: 05/24/24 Insertion time: 05:15
[2024-05-26] MEDS: LOSARTAN POTASSIUM 50 MG TABLET PO (11:29)
[2024-05-26] MEDS: CEFTRIAXONE 1,000 MG in 0.9 % SODIUM CHLORIDE 50 ML 100 MG IV (11:30)
[2024-05-26] MEDS: GABAPENTIN 100 MG CAPSULE PO (20:29)
[2024-05-27] VITALS (19 sets, daily range): BP systolic 98–137; BP diastolic 62–79; PULSE 63–89; TEMP 36.4–36.9; O2SAT 87–99
[2024-05-27 05:04] LABS: Basophils Absolute Auto 0.1 10^3/uL (0.0-0.1); Basophils Percent Auto 1.3 % (0.2-2.0); Eosinophils Absolute Auto 0.3 10^3/uL (0.0-0.7); Eosinophils Percent Auto 6.7 % (0.9-7.0); Hematocrit 32.3 % (36.0-48.0); Hemoglobin 9.3 g/dL (12.0-16.0); Immature Granulocytes Abs Auto 0.02 10^3/uL (0.00-0.03); Immature Granulocytes Pct Auto 0.4 % (0.0-0.5); Lymphocytes Absolute Auto 1.7 10^3/uL (1.2-3.8); Lymphocytes Percent Auto 37.7 % (20.5-60.0); Mean Corpuscular HGB Conc 28.8 g/dL (29.9-35.2); Mean Corpuscular Hemoglobin 25.8 pg (26.7-34.0); Mean Corpuscular Volume 89.7 fL (81.0-99.0); Mean Platelet Volume 10.5 fL (9.5-13.5); Monocytes Absolute Auto 0.8 10^3/uL (0.3-0.8); Monocytes Percent Auto 16.9 % (1.7-12.0); Neutrophils Absolute Auto 1.7 10^3/uL (1.4-6.5); Platelet Count 216 10^3/uL (150-450); Red Cell Distribution Width 17.7 % (11.0-15.0); White Blood Count 4.5 10^3/uL (4.0-11.0)
[2024-05-27] MEDS: GABAPENTIN 100 MG CAPSULE PO ×3 (05:29→23:09)
[2024-05-27 06:02] LABS: Alanine Aminotransferase 16 U/L (14-59); Albumin Globulin Ratio 0.6; Albumin Level 2.6 g/dL (3.4-5.0); Alkaline Phosphatase 78 U/L (46-116); Anion Gap 13.7; Aspartate Amino Transferase 25 U/L (15-37); BUN Creatinine Ratio 15.9; Bilirubin Total 0.5 mg/dL (0.2-1.0); Calcium 8.7 mg/dL (8.5-10.1); Carbon Dioxide 24.7 mmol/L (21.0-32.0); Chloride 101 mmol/L (98-107); Estimated GFR (African America >60 (>=60); Estimated GFR (Non-African Ame 50 (>=60); Globulin 4.1 g/dL; Glucose 96 mg/dL (74-106); Potassium 5.4 mmol/L (3.5-5.1); Sodium 134 mmol/L (136-145); Total Protein 6.7 g/dL (6.4-8.2)
[2024-05-27] MEDS: APIXABAN 5 MG TABLET 2.5 MG PO ×2 (08:28→23:09)
[2024-05-27] MEDS: METOPROLOL TARTRATE 25 MG TABLET PO ×2 (08:29→23:09)
[2024-05-27] MEDS: PREGABALIN 75 MG CAPSULE PO ×2 (08:29→23:09)
[2024-05-27] MEDS: FERROUS SULFATE 325 MG TABLET PO (08:29)
[2024-05-27] MEDS: CLOPIDOGREL BISULFATE 75 MG TABLET PO (08:29)
[2024-05-27] MEDS: BUPRENORPHINE HCL/NALOXONE HCL 8-2 MG TABLET SUBL 1.5 TAB SL (08:30)
[2024-05-27] MEDS: SPIRONOLACTONE 25 MG TABLET PO (08:30)
[2024-05-27] MEDS: AMLODIPINE BESYLATE 5 MG TABLET PO (08:30)
[2024-05-27] MEDS: LOSARTAN POTASSIUM 50 MG TABLET PO (08:32)
--- NOTE | 2024-05-27 09:49 | SWNOTE1 ---
SW spoke to Marjan at [facility] and she will be checking on status of precert shortly. She also stated she will call insurance to try to speed up process and will let SW know.
--- NOTE | 2024-05-27 10:13 | REH.PTDLY ---
Physical Therapy Daily Note PT Daily Note/Assess Start: 05/24/24 11:25 Freq: Status: Active Protocol: Document 05/27/24 10:08 GARRET (Rec: 05/27/24 10:12 GARRET [id number]) Physical Therapy Daily Note/Assessment Time In 09:20 Time Out 09:45 Subjective Pt reports feeling much better , waiting on insurance approval to go SNF. Legs are still numb and tingling, feels like razor blades on my calf muscles when something is rubbed across them. Therapeutic Exercise Minutes (minutes) 8 Therapeutic Exercise Units 1 Therapeutic Exercise Treatment Instructed in supine B LE exs 10x ea. Seated LAQ and marching 10x ea for improved strength. Therapeutic Activity Minutes (minutes) 15 Therapeutic Activity Units 1 Bed Mobility Ability Minimum Assist Therapeutic Activity Comments Pt requires Min A from therapist and bed position to sit bedside. Sit to stand transfer attempted with 1 assist, but pt is unable to stand as L leg kicks out in front of her. Pt does much better with Min A x2. Once standing with pt holding onto RW, assist given to valeri jennings. Pt needs to sit back down after 1 min. Stand pivot transfer to chair with RW Min A x2, pt takes 2 very small shuffles and then needs to sit back on bed. Pt then stands again and is able to take 4 small steps and get into chair Min Ax2. Total Therapy Minutes 23 Total Physical Therapy Units 2 Daily Note Summary Pt requires Min A x2 today with transfers into chair due to weakness. Pt would benefit from SNF stay to become stronger for functional mobility. Unable to ambulate any far distance at this time.
--- NOTE | 2024-05-27 10:33 | SWNOTE1 ---
SW faxed over updated PT note from today, physician notes, labs, vitals, and nursing notes to [facility].
--- NOTE | 2024-05-27 10:33 | SWNOTE1 ---
SW completed HENS.
--- NOTE | 2024-05-27 11:14 | RESP.RT ---
Titrated to room air
[2024-05-27] MEDS: 0.9 % SODIUM CHLORIDE 250 ML 10 ML IV (11:47)
[2024-05-27] MEDS: CEFTRIAXONE 1,000 MG in 0.9 % SODIUM CHLORIDE 50 ML 100 MG IV (11:47)
--- NOTE | 2024-05-27 11:50 | CM.NOTE ---
Rounds made with Dr. Serna. Dr. Serna discussed plan of care. Plan is for discharge to [facility] once approval obtained. Kusum verbalized understanding.
--- NOTE | 2024-05-27 13:42 | P.IMPN_ITS ---
Progress Note: A&P Assessment and Plan (1) Acute respiratory failure with hypercapnia: Assessment and Plan: Resolved. . (2) Metabolic encephalopathy: Assessment and Plan: Multifactorial, secondary to UTI and hypercapnia. resolved. (3) Acute UTI: Assessment and Plan: On IV Rocephin. cx negative so far. (4) Acute kidney injury: Assessment and Plan: resolved. (5) Generalized weakness: Assessment and Plan: awaiting precert for rehab. (6) Abdominal pain: Assessment and Plan: Resolved. CT abdomen pelvis showed new liver lesion that is suspicions for neoplasm Qualifiers: Abdominal location: right lower quadrant Qualified Code(s): R10.31 - Right lower quadrant pain (7) Lesion of liver: Assessment and Plan: Suspicious Liver lesion noted on CT abdomen pelvis. US showes suspicion liver lesion of unclear etiology, outpaitnet f/u (8) Nausea and vomiting in adult patient: Assessment and Plan: Resolved. Tolerating p.o. diet. (9) Elevated troponin: Assessment and Plan: No chest pain. No active cardiac ischemia. Outpatient follow-up (10) CAD (coronary atherosclerotic disease): Assessment and Plan: Recent NSTEMI, on appropriate cardiac medications. No active signs or symptoms concerning for cardiac ischemia. Outpatient follow-up. Qualifiers: Coronary Disease-Associated Artery/Lesion type: [place] artery [place] vs. transplanted heart: [place] heart Associated angina: without angina Qualif ied Code(s): I25.10 - Atherosclerotic heart disease of [place] coronary artery without angina pectoris (11) Chronic respiratory failure with hypoxia: Assessment and Plan: At baseline. Monitor. No respiratory complaints. (12) COPD (chronic obstructive pulmonary disease): Assessment and Plan: Stable with no evidence of bronchospasm or wheezing. Continue with home medications. Qualifiers: COPD type: COPD with acute exacerbation Qualified Code(s): J44.1 - Chronic obstructive pulmonary disease with (acute) exacerbation (13) Chronic inflammatory demyelinating neuropathy: Assessment and Plan: On IVIG as outpatient. Monitor. Follow-up with neurology as outpatient (14) (HFpEF) heart failure with preserved ejection fraction: Assessment and Plan: Euvolemic now. Monitor. Qualifiers: Heart failure chronicity: chronic Qualified Code(s): I50.32 - Chronic diastolic (congestive) heart failure (15) Stage 3a chronic kidney disease (CKD): Assessment and Plan: Renal function back to his baseline. Monitor serum creatinine. (16) Anemia: Assessment and Plan: Unchanged, at baseline. Monitor. Qualifiers: Anemia type: due to chronic kidney disease Chronic kidney disease stage: stage 3 (moderate) Chronic kidney disease stage 3 subtype: stage 3a (GFR 45-59) Qualified Code(s): N18.31 - Chronic kidney disease, stage 3a; D63.1 - Anemia in chronic kidney disease (17) Hypertension: Assessment and Plan: at goal. c/w home medications Qualifiers: Hypertension type: primary hypertension Qualified Code(s): I10 - Essential (primary) hypertension (18) Opioid use disorder in remission: Assessment and Plan: On Suboxone.. (19) Lumbar degenerative disc disease: Assessment and Plan: Avoid sedative/hypnotics as she has recovered from hypercapnic respiratory failure. Currently on gabapentin. Continue with same. (20) Adult failure to thrive: Assessment and Plan: Multiple chronic medical conditions with repeated hospital admissions and ER visit, physical deconditioning, weight loss. (21) Malnutrition: Assessment and Plan: Severe malnutrition with weight loss, poor oral intake, chronic disease burden with multiple other hospital admissions and ER visit. outpatient eval by laser beam machine operator. Qualifiers: Malnutrition type: protein-calorie malnutrition Protein-calorie malnutrition severity: severe Qualified Code(s): E43 - Unspecified severe protein-calorie malnutrition Internal Medicine - PN: Subj Subjective Interval history: Seen and examined. Doing well. No overnight events. Doing well. Exam Constitutional Vital Signs, click to edit/add: Last Vital Signs Temp 98.4 F 05/27/24 08:27 Pulse 87 05/27/24 12:00 Resp 16 05/27/24 08:27 BP 118/66 05/27/24 08:27 Pulse Ox 94 L 05/27/24 11:13 O2 Del Method Nasal Cannula 05/27/24 11:13 O2 Flow Rate 1 05/27/24 11:13 FiO2 21 05/24/24 11:32 Documenting provider has reviewed patient's vital signs: yes General appearance: frail appearing Respiratory Common normals: normal respiratory effort, no use of accessory muscles and clear to auscultation bilaterally Effort & inspection: able to speak in complete sentences Cardio Common normals: regular rate, regular rhythm, S1 normal heart sound and S2 normal heart sound Neuro Common normals: oriented x3 and moves all extremities Speech: speech normal Motor exam: no tremor noted and muscle tone normal throughout Other: No focal weakness noted but overall weak in all extremities. Psych Common normals: mental status grossly normal, thought process normal, denies homicidal ideation and denies suicidal ideation Internal Medicine - PN: Obj Da Labs Labs: Laboratory Results - last 24 hr 05/27/24 04:31 WBC 4.5 RBC 3.60 L Hgb 9.3 L Hct 32.3 L MCV 89.7 MCH 25.8 L MCHC 28.8 L RDW 17.7 H Plt Count 216 MPV 10.5 Neut % (Auto) 37.0 L Lymph % (Auto) 37.7 [place] % (Auto) 16.9 H Eos % (Auto) 6.7 Baso % (Auto) 1.3 Neut # (Auto) 1.7 Lymph # (Auto) 1.7 [place] # (Auto) 0.8 Eos # (Auto) 0.3 Baso # (Auto) 0.1 Abs Immat Gran (auto) 0.02 Imm/Tot Granulo (auto) 0.4 Sodium 134 L Potassium 5.4 H Chloride 101 Carbon Dioxide 24.7 Anion Gap 13.7 BUN 17.0 Creatinine 1.07 H Est GFR ( Amer) >60 Est GFR (Non-Af Amer) 50 L BUN/Creatinine Ratio 15.9 Glucose 96 Calcium 8.7 Total Bilirubin 0.5 AST 25 ALT 16 Alkaline Phosphatase 78 Total Protein 6.7 Albumin 2.6 L Globulin 4.1 Albumin/Globulin Ratio 0.6 Urinary Catheter Management Urinary Catheter Management Straight: Cath placed during this visit: yes Urethral indwelling: No Insertion date: 05/24/24 Insertion time: 05:15
--- NOTE | 2024-05-27 14:09 | SWNOTE1 ---
SW attempted to call pt's insurance 2x to check on precert. Both times the insurance hung up on SW.
--- NOTE | 2024-05-27 14:15 | SWNOTE1 ---
STORM sent a message to Marjan at [facility] to contact the med/surge trade union secretary if pt does get approved and they will work on transport and getting pt over to [facility]. STORM left a packet on med/surge floor with phone and fax numher for [employer]. STORM completed HENS.
--- NOTE | 2024-05-27 22:58 | DIETREC ---
Recommend 237 mL Ensure Clear BID d/t fair PO intakes, increased metabolic needs, and dx malnutrition.
[2024-05-28] VITALS (10 sets, daily range): BP systolic 118–130; BP diastolic 56–76; PULSE 70–96; TEMP 36.4–37.1; O2SAT 90–93
[2024-05-28 05:15] LABS: Basophils Percent Auto 0.7 % (0.2-2.0); Eosinophils Absolute Auto 0.1 10^3/uL (0.0-0.7); Hematocrit 32.1 % (36.0-48.0); Hemoglobin 9.3 g/dL (12.0-16.0); Immature Granulocytes Abs Auto 0.02 10^3/uL (0.00-0.03); Immature Granulocytes Pct Auto 0.4 % (0.0-0.5); Lymphocytes Absolute Auto 1.4 10^3/uL (1.2-3.8); Lymphocytes Percent Auto 26.1 % (20.5-60.0); Mean Corpuscular Volume 89.7 fL (81.0-99.0); Mean Platelet Volume 10.5 fL (9.5-13.5); Monocytes Percent Auto 19.1 % (1.7-12.0); Neutrophils Absolute Auto 2.8 10^3/uL (1.4-6.5); Neutrophils Percent Auto 51.7 % (43.0-75.0); Platelet Count 204 10^3/uL (150-450); Red Blood Count 3.58 10^6/uL (4.20-5.40); Red Cell Distribution Width 17.6 % (11.0-15.0); White Blood Count 5.5 10^3/uL (4.0-11.0)
[2024-05-28 05:35] LABS: Alanine Aminotransferase 13 U/L (14-59); Albumin Globulin Ratio 0.6; Albumin Level 2.5 g/dL (3.4-5.0); Alkaline Phosphatase 72 U/L (46-116); Anion Gap 10.6; Aspartate Amino Transferase 13 U/L (15-37); BUN Creatinine Ratio 16.2; Bilirubin Total 0.4 mg/dL (0.2-1.0); Calcium 8.7 mg/dL (8.5-10.1); Carbon Dioxide 24.7 mmol/L (21.0-32.0); Chloride 104 mmol/L (98-107); Estimated GFR (African America 46 (>=60); Estimated GFR (Non-African Ame 38 (>=60); Globulin 4.3 g/dL; Glucose 108 mg/dL (74-106); Potassium 5.3 mmol/L (3.5-5.1); Sodium 134 mmol/L (136-145); Total Protein 6.8 g/dL (6.4-8.2)
[2024-05-28] MEDS: GABAPENTIN 100 MG CAPSULE PO ×2 (05:59→13:15)
--- NOTE | 2024-05-28 09:02 | PT.DAILY ---
Physical Therapy Daily Note PT Daily Note/Assess Start: 05/24/24 11:25 Freq: Status: Active Protocol: Document 05/28/24 08:51 [id number] (Rec: 05/28/24 09:02 [id number]) Physical Therapy Daily Note/Assessment Time In/Time Out Time In 08:10 Time Out 08:25 Pain In Pain Level 10 Pain Out Pain Level 10 Subjective Subjective Patient states her bottom is hurting @ 10. Agreeable to participate with PT. Nursing present for patient care. Therapeutic Exercise Time Therapeutic Exercise Minutes (minutes) 5 Therapeutic Exercise Units 1 Therapeutic Exercise Treatment Therapeutic Exercise Treatment Patient preformed MARGARITA LE strengthening ther ex for: ankle/heel raises, LAQs, hip ABD/ADD, marching. Patient requires MOD A for LAQ's and hip ABD/ADD to increase amplitude of movements due to weakness. Patient performed 10 reps of each. Therapeutic Activity Time Therapeutic Activity Minutes (minutes) 10 Therapeutic Activity Units 1 Therapeutic Activity Treatment Bed Mobility Ability Moderate Assist Chair Transfer Ability Moderate Assist,2 Person Assist Therapeutic Activity Comments Patient slow in performing functional motor movements. Patient MOD A +2 for sit to stand to RW x 2. VC's to stand upright and for LE placement during pivot transfer to BSC. Patient stood ~1-3 minutes with MOD A+ 1 while cleaning and changing brief. Patient MOD to MAX +1 with nursing for pivot transfer from BSC to chair bedside. Patient verbalizes increased back pain with transfers. Total Physical Therapy Time Total Therapy Minutes 15 Total Physical Therapy Units 2 Summary Daily Note Summary Patient slow in performing functional movements, VC's to direct placement of MARGARITA LE during BSC to chair at bedside , specifically the R LE. Patient tends to push R LE out and forward vs weight bearing . Delayed motor planning with functional activities. Patient demonstrates flexor withdrawal pattern to R foot with initiating muscle movement. Patient would benefit from SNF placement due to weakness and unable to ambulate any distance.
[2024-05-28] MEDS: FERROUS SULFATE 325 MG TABLET PO (09:22)
[2024-05-28] MEDS: CLOPIDOGREL BISULFATE 75 MG TABLET PO (09:22)
[2024-05-28] MEDS: BUPRENORPHINE HCL/NALOXONE HCL 8-2 MG TABLET SUBL 1.5 TAB SL (09:22)
[2024-05-28] MEDS: PREGABALIN 75 MG CAPSULE PO (09:22)
[2024-05-28] MEDS: SPIRONOLACTONE 25 MG TABLET PO (09:22)
[2024-05-28] MEDS: LOSARTAN POTASSIUM 50 MG TABLET PO (09:22)
[2024-05-28] MEDS: AMLODIPINE BESYLATE 5 MG TABLET PO (09:22)
[2024-05-28] MEDS: APIXABAN 5 MG TABLET 2.5 MG PO (09:22)
[2024-05-28] MEDS: METOPROLOL TARTRATE 25 MG TABLET PO (09:27)
[2024-05-28] MEDS: CEFTRIAXONE 1,000 MG in 0.9 % SODIUM CHLORIDE 50 ML 100 MG IV (11:01)
--- NOTE | 2024-05-28 11:28 | PM.DS1 ---
DS: Providers Provider Date of admission: 05/24/24 10:20 Primary care physician: Shaikh Daphne MD Consults: 05/24/24 Consult to Pillowcase Folder Routine Reason for consult:: Advanced Directives 05/24/24 06:48 Occupational Therapy Eval and Treat Routine Reason for consultation: Ambulatory dysfunction/weakness Physical Therapy Eval and Treat Routine Reason for consultation: Ambulatory dysfunction/weakness 05/24/24 13:12 Consult to Oncology Routine Consulting Provider: Mary Espana Reason for consultation: Suspicion Liver Lesion DS: Diagnosis Discharge Diagnosis (1) Acute respiratory failure with hypercapnia: (2) Metabolic encephalopathy: (3) Acute UTI: (4) Acute kidney injury: (5) Lesion of liver: (6) Chronic respiratory failure with hypoxia: (7) Elevated troponin: (8) CAD (coronary atherosclerotic disease): Qualifiers: Coronary Disease-Associated Artery/Lesion type: [place] artery [place] vs. transplanted heart: [place] heart Associated angina: without angina Qualified Code(s): I25.10 - Atherosclerotic heart disease of [place] coronary artery without angina pectoris (9) COPD (chronic obstructive pulmonary disease): Qualifiers: COPD type: COPD with acute exacerbation Qualified Code(s): J44.1 - Chronic obstructive pulmonary disease with (acute) exacerbation (10) (HFpEF) heart failure with preserved ejection fraction: Qualifiers: Heart failure chronicity: chronic Qualified Code(s): I50.32 - Chronic diastolic (congestive) heart failure (11) Stage 3a chronic kidney disease (CKD): (12) Malnutrition: Qualifiers: Malnutrition type: protein-calorie malnutrition Protein-calorie malnutrition severity: severe Qualified Code(s): E43 - Unspecified severe protein-calorie malnutrition (13) Generalized weakness: (14) Chronic inflammatory demyelinating neuropathy: DS: Summary Hospital Course Hospital Course: Reason for admission: See ER note and H&P for details. 74 y/o female to ER with altered mental status. Developed weakness and confusion. Recently to hospital for chest pain and elevated troponin and had normal cath. Home for few days then back to hospital. Home for 1 day and increased weakness. To ER and labs showed SHANKAR and UTI. Admitted for treatment. Hospital course: Started IV fluids and rocephin. Noted hypercapnea and started BiPAP. C/o abdominal pain and nausea and CT showed liver lesion suspicious for malignancy. Started PT/OT. Slowly improved. Labs improved and renal function at baseline. More alert. Severe weakness and PT recommended SNF. Oncology consulted and MRI brain without acute change. Cultures negative. Received approval for SNF and transferred in stable condition. Will take cefdinir x 7 days. Potassium slightly elevated and stop aldactone. Resume medication as directed. Follow up with oncology for outpatient workup of liver mass. Time Spent with Patient Time attestation: Total time spent providing and/or coordinating discharge services: Time spent: greater than 30 minutes Exam Constitutional Vital Signs, click to edit/add: Last Vital Signs Temp 98.8 F 05/28/24 08:06 Pulse 96 H 05/28/24 10:00 Resp 18 05/28/24 08:06 BP 130/56 05/28/24 08:06 Pulse Ox 92 L 05/28/24 08:06 O2 Del Method Room Air 05/28/24 08:06 O2 Flow Rate 1 05/27/24 11:13 FiO2 21 05/24/24 11:32 Documenting provider has reviewed patient's vital signs: yes Common normals: no apparent distress, oriented x3 and alert HENMT Common normals: normocephalic Eye Common normals: PERRL and EOMs intact bilaterally Respiratory Common normals: normal respiratory effort and clear to auscultation bilaterally Cardio Common normals: regular rate, regular rhythm, no gallops, no murmurs and no rub GI Common normals: Normal to inspection, nondistended, normoactive bowel sounds present and non-tender Extremity Common normals: no pedal edema DS: Data Data Completed and Pending Labs on day of discharge: Labs from last 24 hours 05/28/24 05:10 WBC 5.5 RBC 3.58 L Hgb 9.3 L Hct 32.1 L MCV 89.7 MCH 26.0 L MCHC 29.0 L RDW 17.6 H Plt Count 204 MPV 10.5 Neut % (Auto) 51.7 Lymph % (Auto) 26.1 [place] % (Auto) 19.1 H Eos % (Auto) 2.0 Baso % (Auto) 0.7 Neut # (Auto) 2.8 Lymph # (Auto) 1.4 [place] # (Auto) 1.0 H Eos # (Auto) 0.1 Baso # (Auto) 0.0 Abs Immat Gran (auto) 0.02 Imm/Tot Granulo (auto) 0.4 Sodium 134 L Potassium 5.3 H Chloride 104 Carbon Dioxide 24.7 Anion Gap 10.6 BUN 22.0 H Creatinine 1.36 H Est GFR ( Amer) 46 L Est GFR (Non-Af Amer) 38 L BUN/Creatinine Ratio 16.2 Glucose 108 H Calcium 8.7 Total Bilirubin 0.4 AST 13 L ALT 13 L Alkaline Phosphatase 72 Total Protein 6.8 Albumin 2.5 L Globulin 4.3 Albumin/Globulin Ratio 0.6 Preliminary micro results at discharge 05/24/24 02:53 - Preliminary Blood NO GROWTH AT 36-48 HOURS. FINAL TO FOLLOW. 05/24/24 02:45 Blood Culture Result 1 - Preliminary Blood NO GROWTH AT 36-48 HOURS. FINAL TO FOLLOW. Discharge Plan Discharge Disposition: Xfer SNF Condition: Fair Discharge Medications: New cefdinir 300 mg capsule 300 mg PO BID 7 Days Qty: 14 0RF Continued metoprolol tartrate 25 mg tablet 25 mg PO Q12H ferrous sulfate [Iron (ferrous sulfate)] 325 mg (65 mg iron) tablet 325 mg PO DAILY 30 Days Qty: 30 0RF amlodipine 5 mg tablet 5 mg PO DAILY Gammagard Liquid 10 % solution 5 g IV Q21D tizanidine 4 mg tablet 4 mg PO Q8H PRN (Reason: muscle spasticity) buprenorphine-naloxone 8-2 mg film 1 film sublingual .QD Rx Instructions: 1 &1/2 FILM; Eliquis 2.5 mg tablet 2.5 mg PO BID furosemide 20 mg tablet 20 mg PO DAILY nitroglycerin 0.4 mg tablet, sublingual 0.4 mg sublingual Q5M PRN (Reason: chest pain) pregabalin 75 mg capsule 75 mg PO BID spironolactone 25 mg tablet 25 mg PO DAILY valsartan 80 mg tablet 80 mg PO DAILY clopidogrel 75 mg tablet 75 mg PO .qd albuterol sulfate 90 mcg/actuation HFA aerosol inhaler 2 puff INHALATION Q4H PRN (Reason: shortness of breath or wheezing) Print Language: Sammarinese Forms: Portal Instructions Follow Up Appointments: LTC facility physician to follow
--- NOTE | 2024-05-28 14:04 | PC.NURSE ---
called report to [facility] and gave report to nurse brandon. son will be picking patient up at 5pm to transport pt to [facility].
== END 2024-05-28 18:01 | DRG 189 ==
LOC: ER 07:00 → MS 07:40 → ICU 05-25 08:17 → MS 05-28 10:51 → ICU 05-30 13:42 → MS 05-30 13:42
PROVIDERS: Admitting Provider Internal Medicine; Emergency Provider Emergency Medicine; PCP Internal Medicine; Visit Provider Family Medicine
DX: J96.02 Acute respiratory failure with hypercapnia (principal); G93.41 Metabolic encephalopathy; E43 Unspecified severe protein-calorie malnutrition; N17.9 Acute kidney failure, unspecified; N39.0 Urinary tract infection, site not specified; I50.32 Chronic diastolic (congestive) heart failure; I13.0 Hypertensive heart and chronic kidney disease with heart failure and stage 1 through stage 4 chronic kidney disease, or unspecified chronic kidney disease; J44.1 Chronic obstructive pulmonary disease with (acute) exacerbation; R53.1 Weakness; R11.2 Nausea with vomiting, unspecified; R79.89 Other specified abnormal findings of blood chemistry; I25.10 Atherosclerotic heart disease of native coronary artery without angina pectoris; J96.11 Chronic respiratory failure with hypoxia; N18.31 Chronic kidney disease, stage 3a; D63.1 Anemia in chronic kidney disease; F11.91 Opioid use, unspecified, in remission; G62.89 Other specified polyneuropathies; R62.7 Adult failure to thrive; M51.36 Other intervertebral disc degeneration, lumbar region; Z68.29 Body mass index [BMI] 29.0-29.9, adult; Z79.01 Long term (current) use of anticoagulants; Z79.899 Other long term (current) drug therapy; Z79.82 Long term (current) use of aspirin; Z87.891 Personal history of nicotine dependence; Z90.710 Acquired absence of both cervix and uterus; Z96.652 Presence of left artificial knee joint; Z95.5 Presence of coronary angioplasty implant and graft; Z90.49 Acquired absence of other specified parts of digestive tract; I25.2 Old myocardial infarction; R10.31 Right lower quadrant pain; E86.0 Dehydration; Z79.02 Long term (current) use of antithrombotics/antiplatelets; Z91.81 History of falling; E86.1 Hypovolemia; K76.9 Liver disease, unspecified
CPT/HCPCS: 36415; 36600; 70450; 70551; 71045; 74176; 76705; 80053; 81001; 82105; 82140; 82378; 82805; 83605; 83880; 84484; 85025; 86301; 87040; 93005; 94660; 94761; 96361; 96365; 96366; 97110; 97163; 97165; 97530; 99285; J0574; J0696